=== PATIENT | male | born 1960 | race American Indian/Alaskan Native ===

== ENCOUNTER 2020-08-24 12:40 | Emergency (ER) | payer SELFPAY ==
[2020-08-24 14:13] VITALS: BP 171/105
--- NOTE | 2020-08-24 16:08 | Emergency Department Report ---
ED ENT HPI - General Chief complaint: Dental/Oral Stated complaint: TOOTHACHE Time Seen by Provider: 08/24/20 16:01 Source: patient Mode of arrival: Ambulatory Limitations: No Limitations - History of Present Illness Initial comments: 60-year-old male complaining of dental pain started on today he woke up with right lower jaw swelling. Patient states that he made an appointment with the dentist for this coming Wednesday. The pain is severe not relieved with any home remedies such as [id number] Tylenol and salt water gargles. He denie s any other complaints MD complaint: tooth pain -: days(s) Location: tooth # (29) Severity: moderate Severity scale (0 -10): 8 Improves with: none Worsens with: eating Context- Dental: poor dental care Associated Symptoms: gum swelling, toothache, other - Related Data Previous Rx's Medication Instructions Recorded Last Taken Type Cyclobenzaprine [Flexeril 10mg] 10 mg PO TID PRN #20 tablet 01/26/14 Unknown Rx HYDROcodone/APAP 5-325 [[place] 1 each PO Q6HR PRN #20 tablet 01/26/14 Unknown Rx 5/325] Naproxen [Naprosyn TAB] 500 mg PO BID #30 tablet 01/26/14 Unknown Rx Clindamycin [Clindamycin CAP] 300 mg PO Q8H 7 Days #21 cap 08/24/20 Unknown Rx Ibuprofen [Motrin] 800 mg PO Q8HR PRN #21 tablet 08/24/20 Unknown Rx Allergies Allergy/AdvReac Type Severity Reaction Status Date / Time No Known Allergies Allergy Verified 08/24/20 14:13 ED Dental HPI - General Chief complaint: Dental/Oral Stated complaint: TOOTHACHE Time Seen by Provider: 08/24/20 16:01 Source: patient Mode of arrival: Ambulatory Limitations: No Limitations - History of Present Illness MD complaint: tooth pain - Related Data Previous Rx's Medication Instructions Recorded Last Taken Type Cyclobenzaprine [Flexeril 10mg] 10 mg PO TID PRN #20 tablet 01/26/14 Unknown Rx HYDROcodone/APAP 5-325 [[place] 1 each PO Q6HR PRN #20 tablet 01/26/14 Unknown Rx 5/325] Naproxen [Naprosyn TAB] 500 mg PO BID #30 tablet 10/31/14 Unknown Rx Clindamycin [Clindamycin CAP] 300 mg PO Q8H 7 Days #21 cap 08/24/20 Unknown Rx Ibuprofen [Motrin] 800 mg PO Q8HR PRN #21 tablet 08/24/20 Unknown Rx Allergies Allergy/AdvReac Type Severity Reaction Status Date / Time No Known Allergies Allergy Verified 08/24/20 14:13 ED Review of Systems ROS: Stated complaint: TOOTHACHE Other details as noted in HPI Comment: All other systems reviewed and negative Constitutional: denies: chills, fever ENT: dental pain, other (Right lower jaw swelling) Respiratory: no symptoms reported Cardiovascular: denies: chest pain, palpitations, dyspnea on exertion Endocrine: no symptoms reported Gastrointestinal: denies: abdominal pain, nausea, vomiting, diarrhea, constipation Skin: denies: as per HPI Neurological: denies: headache, weakness Psychiatric: denies: anxiety, depression ED Past Medical Hx - Past Medical History Previous Medical History?: No - Surgical History Hx Appendectomy: Yes Additional Surgical History: back - Social History Smoking Status: Current Every Day Smoker Substance Use Type: Alcohol - Medications Home Medications: Home Medications Medication Instructions Recorded Confirmed Last Taken Type Cyclobenzaprine [Flexeril 10mg] 10 mg PO TID PRN #20 tablet 01/26/14 Unknown Rx HYDROcodone/APAP 5-325 [[place] 1 each PO Q6HR PRN #20 tablet 01/26/14 Unknown Rx 5/325] Naproxen [Naprosyn TAB] 500 mg PO BID #30 tablet 01/26/14 Unknown Rx Clindamycin [Clindamycin CAP] 300 mg PO Q8H 7 Days #21 cap 08/24/20 Unknown Rx Ibuprofen [Motrin] 800 mg PO Q8HR PRN #21 tablet 08/24/20 Unknown Rx ED Physical Exam - General Limitations: No Limitations General appearance: alert, in no apparent distress - Head Head exam: Present: atraumatic - Eye Eye exam: Present: normal appearance - ENT ENT exam: Present: TM's normal bilaterally, other (Swelling around tooth #29, draining pus, right lower jaw swelling) - Neck Neck exam: Present: normal inspection, full ROM - Respiratory Respiratory exam: Present: normal lung sounds bilaterally. Absent: respiratory distress - Cardiovascular Cardiovascular Exam: Present: regular rate, normal heart sounds - Extremities Exam Extremities exam: Present: normal inspection - Neurological Exam Neurological exam: Present: alert, oriented X3 - Psychiatric Psychiatric exam: Present: normal affect - Skin Skin exam: Present: warm, dry, intact ED Course Vital Signs 08/24/20 14:11 Temperature 98.9 F Pulse Rate 69 Respiratory 14 Rate Blood Pressure 171/105 [Left] O2 Sat by Pulse 98 Oximetry ED Medical Decision Making - Medical Decision Making 08/24/20 16:10 60-year-old male complaining of dental pain started 2 days ago he has been using home remedies with no relief. Today he woke up with right lower jaw swelling. Patient has made an appointment with the dentist for Wednesday. examination is positive for dental abscess already draining. Will prescribe antibiotic pain management medication patient has a dental appointment dental appointment on Wednesday08/24/20 16:17 Critical Care Time: No Critical care attestation.: If time is entered above; I have spent that time in minutes in the direct care of this critically ill patient, excluding procedure time. ED Disposition Clinical Impression: Dental abscess Disposition: TO HOME OR SELFCARE Is pt being admited?: No Does the pt Need Aspirin: No Condition: Stable Additional Instructions: Continue with salt water gargles at least 4 times daily take the medication as prescribed. Follow-up with the dentist on Wednesday as scheduled Prescriptions: Clindamycin [Clindamycin CAP] 300 mg PO Q8H 7 Days #21 cap Ibuprofen [Motrin] 800 mg PO Q8HR PRN #21 tablet PRN Reason: Pain , Severe (7-10) Referrals: [facility] [Outside] - 3-5 Days Time of Disposition: 16:21
== END 2020-08-24 16:54 | disposition home or self-care (01) ==
LOC: ED 12:40
DX: K04.7 Periapical abscess without sinus (principal); F17.200 Nicotine dependence, unspecified, uncomplicated; Z72.89 Other problems related to lifestyle; Z79.899 Other long term (current) drug therapy
CPT/HCPCS: 99281

== ENCOUNTER 2021-04-20 16:20 | Inpatient (IN) | payer SELFPAY ==
[2021-04-20] MEDS ORDERED: dilTIAZem 25 MG/5 ML INJ IV ONE (16:35)
--- NOTE | 2021-04-20 16:35 | Emergency Department Report ---
ED Neuro Deficit HPI - General Chief Complaint: Neuro Symptoms/Deficit Stated Complaint: neuro symptoms Time Seen by Provider: 04/20/21 16:28 Source: patient, EMS (Verbal report received from emergency medical services.) Mode of arrival: Stretcher Limitations: Physical Limitation - History of Present Illness Initial Comments: The patient was evaluated in the emergency department for symptoms described in the history of present illness. He/she was evaluated in the context of the global COVID-19 pandemic, which necessitated consideration that the patient might be at risk for infection with the virus that causes COVID-19. Institutional protocols and algorithms that pertain to the evaluation of patients at risk for COVID-19 are in a state of rapid change based on information released by regulatory bodies including the CDC and federal and state organizations. These policies and algorithms were followed during the patient's care in the emergency department. Please note that these policies, procedures and recommendations changed on a rapid basis. The patient is a 61-year-old gentleman. He is not known to myself previously. History obtained mostly from EMS, along with some history from patient. 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 He is brought to the hospital by emergency medical services with an EMS articulated complaint of difficulty walking for the past 2 days, and slurred speech/discoordination since yesterday. The patient cannot clarify his exact last known well time. He believes that he has taken aspirin recently. He does not believe he is taking systemic anticoagulation but he is not sure. He denies physical pain. He reports he has received his COVID vaccination. He endorses a mild cough. He denies hematemesis and bright red blood per rectum, as well as urinary symptoms. His symptoms are constant. They do not radiate anywhere. They do not have exacerbating or relieving factors -: days(s) Location: speech, dysarthria, left arm, left leg, ataxia Presenting Symptoms: Present: Weak/Paralyzed One Side, Unable to Speak Clearly Place: home Improves With: none Worsens With: none Context: gradual onset - Related Data Home Medications: Previous Rx's Medication Instructions Recorded Last Taken Type Cyclobenzaprine [Flexeril 10mg] 10 mg PO TID PRN #20 tablet 01/26/14 Unknown Rx HYDROcodone/APAP 5-325 [[place] 1 each PO Q6HR PRN #20 tablet 01/26/14 Unknown Rx 5/325] Naproxen [Naprosyn TAB] 500 mg PO BID #30 tablet 01/26/14 Unknown Rx Clindamycin [Clindamycin CAP] 300 mg PO Q8H 7 Days #21 cap 08/24/20 Unknown Rx Ibuprofen [Motrin] 800 mg PO Q8HR PRN #21 tablet 08/24/20 Unknown Rx Allergies/Adverse Reactions: Allergies Allergy/AdvReac Type Severity Reaction Status Date / Time No Known Allergies Allergy Verified 08/24/20 14:13 ED Review of Systems ROS: Stated complaint: STEMI Other details as noted in HPI Constitutional: denies: fever Eyes: denies: eye discharge Respiratory: cough Cardiovascular: denies: chest pain Gastrointestinal: denies: abdominal pain, hematemesis, melena, hematochezia Genitourinary: denies: dysuria Musculoskeletal: denies: back pain Neurological: weakness. denies: headache Hematological/Lymphatic: denies: easy bleeding ED Past Medical Hx - Past Medical History Hx CVA: Yes - Surgical History Hx Appendectomy: Yes Additional Surgical History: back - Social History Smoking Status: Current Every Day Smoker Substance Use Type: Alcohol - Medications Home Medications: Home Medications Medication Instructions Recorded Confirmed Last Taken Type Cyclobenzaprine [Flexeril 10mg] 10 mg PO TID PRN #20 tablet 01/26/14 Unknown Rx HYDROcodone/APAP 5-325 [[place] 1 each PO Q6HR PRN #20 tablet 01/26/14 Unknown Rx 5/325] Naproxen [Naprosyn TAB] 500 mg PO BID #30 tablet 01/26/14 Unknown Rx Clindamycin [Clindamycin CAP] 300 mg PO Q8H 7 Days #21 cap 08/24/20 Unknown Rx Ibuprofen [Motrin] 800 mg PO Q8HR PRN #21 tablet 08/24/20 Unknown Rx ED Neuro Physical Exam - General Limitations: Physical Limitation General appearance: anxious Suspected Stroke: Yes - Head Head exam: Present: atraumatic, normocephalic - Eye Eye exam: Present: normal appearance, EOMI. Absent: nystagmus - ENT ENT exam: Present: normal exam, normal orophraynx, mucous membranes moist, n ormal external ear exam - Neck Neck exam: Present: normal inspection, full ROM. Absent: tenderness, meningismus - Respiratory Respiratory exam: Present: normal lung sounds bilaterally. Absent: respiratory distress, wheezes, rales, rhonchi, stridor, decreased breath sounds - Cardiovascular Cardiovascular Exam: Present: tachycardia, irregular rhythm, normal heart sounds. Absent: systolic murmur, diastolic murmur, rubs, gallop - GI/Abdominal GI/Abdominal exam: Present: soft. Absent: distended, tenderness, guarding, rebound, rigid, pulsatile mass - Rectal Rectal exam: Present: deferred - Extremities Exam Extremities exam: Present: normal inspection, full ROM (Right arm and right leg), other (2+ pulses noted in the bilateral upper and lower extremities. Th ere is no palpable cord. negative Homans sign. Muscular compartments are soft. The pelvis is stable.). Absent: pedal edema, calf tenderness - Back Exam Back exam: Present: normal inspection. Absent: tenderness, CVA tenderness (R), CVA tenderness (L), paraspinal tenderness, vertebral tenderness - Neurological Exam Neurological exam: Present: alert, motor sensory deficit (There is left arm and left leg weakness. There is slurred speech.), other (There is no facial droop. The tongue is midline. EOMI. Patient has temporal visual field cuts bilateral superior and inferior quadrants) - NIHSS Assessment Interval: Baseline 1a. Level of Consciousness: alert/keenly responsive 1b. LOC Questions: answers both correctly 1c. LOC Commands: performs tasks correctly 2. Best Gaze: normal 3. Visual: partial hemianopia 4. Facial Palsy: normal symmetrical movement 5b. Motor Arm Right: no drift 5a. Motor Arm Left: drift 6a. Motor Leg Left: drift 6b. Motor Leg Right: no drift 7. Limb Ataxia: present 1 limb 8. Sensory: mild/moderate sensory loss 9. Best Language: no aphasia 10. Dysarthria: mild/moderate dysarthria 11. Extinction/Inattention: visual/tactile inattention Total Score: 7 Stroke Severity: Moderate Stroke - Psychiatric Psychiatric exam: Present: normal affect, normal mood - Skin Skin exam: Present: warm, dry, intact, normal color. Absent: rash ED Course Vital Signs 04/20/21 04/20/21 04/20/21 16:33 16:46 17:16 Temperature 98.0 F Pulse Rate 135 H 85 Respiratory 16 10 L 13 Rate Blood Pressure 163/90 Blood Pressure 195/112 [Right] O2 Sat by Pulse 98 100 Oximetry 04/20/21 04/20/21 04/20/21 17:30 17:46 17:59 Temperature Pulse Rate 90 98 H Respiratory 12 14 Rate Blood Pressure 163/90 163/90 Blood Pressure [Right] O2 Sat by Pulse 96 98 97 Oximetry 04/20/21 04/20/21 18:00 18:16 Temperature Pulse Rate 99 H Respiratory 13 Rate Blood Pressure 163/90 162/111 Blood Pressure [Right] O2 Sat by Pulse 98 97 Oximetry - Reevaluation(s) Reevaluation #1: 04/20/21 17:21 Differential diagnosis, including but not limited to: Subacute stroke, A. fib with RVR, pneumonia, urinary tract infection, electrolyte derangement, thyroid derangement Assessment and plan: 61-year-old gentleman, presenting with hypertension, A. fib with RVR, and strokelike symptoms. He is presenting more than 24 hours after his last known well time. Therefore, tPA is contraindicated. Therefore, emergent CT angiogram head and neck not indicated. Contacted neurology on-call, Dr. Prashanth Kang. Discussed the patient's history, physical, CT scan findings, EKG findings, vital signs, and EKG interpretation. Admission is recommended for stroke work-up and supportive care. Dr. Kang specifically advises against systemic anticoagulation, until inpatient MRIs can be obtained. He does advise and aspirin to be acceptable, and also advises that blood pressure should be less than 220/105 mmHg. Awaiting formal interpretation of CT scan of the brain, as well as acquisition of laboratory studies. We will also initiate rate control with diltiazem, and admit the patient to the medical service. I discussed this with the patient. He is agreeable to this plan of care 04/20/21 18:31 Heart rate improved. Laboratory studies reviewed and appreciated. Tachycardia resolved. Aspirin administered. X-ray appreciated. Admitted to the medical service under the care of Dr. Hu - Lab Data Result diagrams: 04/20/21 17:44 04/20/21 17:44 Lab Results 04/20/21 04/20/21 04/20/21 Range/Units 17:44 17:44 17:44 WBC 9.0 (4.5-11.0) K/mm3 RBC 5.72 H (3.65-5.03) M/mm3 Hgb 16.0 H (11.8-15.2) gm/dl Hct 49.8 H (35.5-45.6) % MCV 87 (84-94) fl MCH 28 (28-32) pg MCHC 32 (32-34) % RDW 13.9 (13.2-15.2) % Plt Count 322 (140-440) K/mm3 Lymph % (Auto) 13.6 (13.4-35.0) % [place] % (Auto) 6.9 (0.0-7.3) % Eos % (Auto) 0.6 (0.0-4.3) % Baso % (Auto) 0.4 (0.0-1.8) % Lymph # (Auto) 1.2 (1.2-5.4) K/mm3 [place] # (Auto) 0.6 (0.0-0.8) K/mm3 Eos # (Auto) 0.1 (0.0-0.4) K/mm3 Baso # (Auto) 0.0 (0.0-0.1) K/mm3 Seg Neutrophils % 78.5 H (40.0-70.0) % Seg Neutrophils # 7.1 (1.8-7.7) K/mm3 Sodium 135 L (137-145) mmol/L Potassium 3.9 (3.6-5.0) mmol/L Chloride 100.0 (98-107) mmol/L Carbon Dioxide 24 (22-30) mmol/L Anion Gap 15 mmol/L BUN 5 L (9-20) mg/dL Creatinine 0.9 (0.8-1.3) mg/dL Estimated GFR > 60 ml/min BUN/Creatinine Ratio 6 % Glucose 169 H (75-100) mg/dL Calcium 9.5 (8.4-10.2) mg/dL Magnesium (1.7-2.3) mg/dL Total Bilirubin 0.40 (0.1-1.2) mg/dL AST 19 (5-40) units/L ALT 35 (7-56) units/L Alkaline Phosphatase 73 (35-129) units/L Total Creatine Kinase 79 (55-170) units/L CK-MB (CK-2) 2.1 (0.0-4.0) ng/mL CK-MB (CK-2) Rel Index 2.6 (0-4) Troponin T 0.011 (0.00-0.029) ng/mL Total Protein 7.0 (6.3-8.2) g/dL Albumin 4.1 (3.9-5) g/dL Albumin/Globulin Ratio 1.4 % Plasma/Serum Alcohol < 0.01 (0-0.07) % 04/20/21 Range/Units 17:44 WBC (4.5-11.0) K/mm3 RBC (3.65-5.03) M/mm3 Hgb (11.8-15.2) gm/dl Hct (35.5-45.6) % MCV (84-94) fl MCH (28-32) pg MCHC (32-34) % RDW (13.2-15.2) % Plt Count (140-440) K/mm3 Lymph % (Auto) (13.4-35.0) % [place] % (Auto) (0.0-7.3) % Eos % (Auto) (0.0-4.3) % Baso % (Auto) (0.0-1.8) % Lymph # (Auto) (1.2-5.4) K/mm3 [place] # (Auto) (0.0-0.8) K/mm3 Eos # (Auto) (0.0-0.4) K/mm3 Baso # (Auto) (0.0-0.1) K/mm3 Seg Neutrophils % (40.0-70.0) % Seg Neutrophils # (1.8-7.7) K/mm3 Sodium (137-145) mmol/L Potassium (3.6-5.0) mmol/L Chloride (98-107) mmol/L Carbon Dioxide (22-30) mmol/L Anion Gap mmol/L BUN (9-20) mg/dL Creatinine (0.8-1.3) mg/dL Estimated GFR ml/min BUN/Creatinine Ratio % Glucose (75-100) mg/dL Calcium (8.4-10.2) mg/dL Magnesium 1.90 (1.7-2.3) mg/dL Total Bilirubin (0.1-1.2) mg/dL AST (5-40) units/L ALT (7-56) units/L Alkaline Phosphatase (35-129) units/L Total Creatine Kinase 81 (55-170) units/L CK-MB (CK-2) (0.0-4.0) ng/mL CK-MB (CK-2) Rel Index (0-4) Troponin T (0.00-0.029) ng/mL Total Protein (6.3-8.2) g/dL Albumin (3.9-5) g/dL Albumin/Globulin Ratio % Plasma/Serum Alcohol (0-0.07) % Vital Signs 04/20/21 16:33 Temperature 98.0 F Pulse Rate 135 H Respiratory 16 Rate Blood Pressure 195/112 [Right] O2 Sat by Pulse 98 Oximetry Vital Signs 04/20/21 04/20/21 04/20/21 16:33 16:46 17:16 Temperature 98.0 F Pulse Rate 135 H 85 Respiratory 16 10 L 13 Rate Blood Pressure 163/90 Blood Pressure 195/112 [Right] O2 Sat by Pulse 98 100 Oximetry 04/20/21 04/20/21 04/20/21 17:30 17:46 17:59 Temperature Pulse Rate 90 98 H Respiratory 12 14 Rate Blood Pressure 163/90 163/90 Blood Pressure [Right] O2 Sat by Pulse 96 98 97 Oximetry 04/20/21 04/20/21 18:00 18:16 Temperature Pulse Rate 99 H Respiratory 13 Rate Blood Pressure 163/90 162/111 Blood Pressure [Right] O2 Sat by Pulse 98 97 Oximetry - EKG Data -: EKG Interpreted by Mi Rate: tachycardia When compared to previous EKG there are: previous EKG unavailable 04/20/21 17:22 The EKG is interpreted at 16: 21 A. fib, rate 120 bpm. Normal axis, normal P wave axis, QTC 504 ms, left ventricular hypertrophy. Patient denies chest pain. This is an abnormal EKG, this is not a STEMI, borderline left bundle branch block/intraventricular conduction delay - Radiology Data Radiology results: pending, report reviewed, image reviewed CT head/brain wo con INDICATION / CLINICAL INFORMATION: 61 years Male; Slurred speech, weakness, ataxia. TECHNIQUE: Routine CT head without contrast. All CT scans at this location are performed using CT dose reduction for ALARA by means of automated exposure control. COMPARISON: None available. FINDINGS: There is extensive cerebral white matter disease most consistent with advanced microvascular angiopathy. The findings include the ganglia capsular regions with old infarct posteriorly on the right at. There also changes at within the superior left cerebellum. Correlation would be needed regarding underlying acute process given the history and extent of findings. Mild findings are also noted within the luba. BRAIN / INTRACRANIAL CONTENTS: There is mild cerebral white matter disease with corresponding mild prominence of the ventricular system. The re is no clear CT evidence of acute intracranial hemorrhage or significant mass effect. ORBITS: No significant abnormality of visualized orbits. SINUSES / MASTOIDS: No significant abnormality in the visualized paranasal sinuses or mastoid air cells. CRANIOCERVICAL JUNCTION: No significant abnormality. ADDITIONAL FINDINGS: None. IMPRESSION: 1. There is extensive microvascular angiopathy as detailed above without clear CT evidence of acute intracranial hemorrhage. Signer Name: Ismael Longo MD Signed: 04/20/2021 4:30 PM Workstation Name: [id number] CHEST 1 VIEW 04/20/2021 4:53 PM INDICATION / CLINICAL INFORMATION: Stroke symptoms with cough. COMPARISON: None available. FINDINGS: SUPPORT DEVICES: None. HEART / MEDIASTINUM: No significant abnormality. LUNGS / PLEURA: A nonspecific opacity is seen along the left mid lung the level of the left hilum. The lungs are otherwise clear. No significant pleural effusion. No pneumothorax. ADDITIONAL FINDINGS: No significant additional findings. IMPRESSION: Nonspecific left midlung opacity. Continued radiographic follow-up to resolution is recommended. Signer Name: Thiago Powell MD Signed: 04/20/2021 4:10 PM Workstation Name: [id number] - Core Measures Measure Exclusions: not indicated - Thrombolytic Inclusion/Exclusion Thrombolytic Exclusion Criteria: Onset of Symptoms Unknown, Symptom Onset > 3 Hours Critical Care Time: Yes Critical care time in (mins) excluding proc time.: 35 Critical care attestation.: If time is entered above; I have spent that time in minutes in the direct care of this critically ill patient, excluding procedure time. ED Disposition Clinical Impression: Stroke, Atrial fibrillation with RVR, Elevated blood pressure reading Disposition: ADMITTED INPATIENT Is pt being admited?: Yes Does the pt Need Aspirin: No Condition: Fair Referrals: PRIMARY CARE, [Primary Care Provider] - 3-5 Days
--- NOTE | 2021-04-20 17:14 | XRay Report ---
CHEST 1 VIEW 04/20/2021 4:53 PM INDICATION / CLINICAL INFORMATION: Stroke symptoms with cough. COMPARISON: None available. FINDINGS: SUPPORT DEVICES: None. HEART / MEDIASTINUM: No significant abnormality. LUNGS / PLEURA: A nonspecific opacity is seen along the left mid lung the level of the left hilum. Th e lungs are otherwise clear. No significant pleural effusion. No pneumothorax. ADDITIONAL FINDINGS: No significant additional findings. IMPRESSION: Nonspecific left midlung opacity. Continued radiographic follow-up to resolution is recommended. Signer Name: Thiago Powell MD Signed: 04/20/2021 5:10 PM Workstation Name: [id number]
--- NOTE | 2021-04-20 17:34 | Cat Scan Report ---
CT head/brain wo con INDICATION / CLINICAL INFORMATION: 61 years Male; Slurred speech, weakness, ataxia. TECHNIQUE: Routine CT head without contrast. All CT scans at this location are performed using CT dos e reduction for ALARA by means of automated exposure control. COMPARISON: None available. FINDINGS: There is extensive cerebral white matter disease most consistent with advanced microvascular angiopat hy. The findings include the ganglia capsular regions with old infarct posteriorly on the right at. T here also changes at within the superior left cerebellum. Correlation would be needed regarding under lying acute process given the history and extent of findings. Mild findings are also noted within the luba. BRAIN / INTRACRANIAL CONTENTS: There is mild cerebral white matter disease with corresponding mild pr ominence of the ventricular system. There is no clear CT evidence of acute intracranial hemorrhage or significant mass effect. ORBITS: No significant abnormality of visualized orbits. SINUSES / MASTOIDS: No significant abnormality in the visualized paranasal sinuses or mastoid air miguel ls. CRANIOCERVICAL JUNCTION: No significant abnormality. ADDITIONAL FINDINGS: None. IMPRESSION: 1. There is extensive microvascular angiopathy as detailed above without clear CT evidence of acute i ntracranial hemorrhage. Signer Name: Ismael Longo MD Signed: 04/20/2021 5:30 PM Workstation Name: [id number]
[2021-04-20] MEDS ORDERED: DOXYCYCLINE 100 MG CAP PO ONE (17:56)
[2021-04-20] MEDS ORDERED: ASPIRIN 81 MG TAB CHEW PO ONE (17:56)
[2021-04-20] MEDS ORDERED: dilTIAZem 30 MG TAB PO ONE (17:58)
[2021-04-20 18:00] LABS: Basophils % (Auto) 0.4 % (0.0-1.8); Eosinophils # (Auto) 0.1 K/mm3 (0.0-0.4); Eosinophils % (Auto) 0.6 % (0.0-4.3); Hematocrit 49.8 % (35.5-45.6); Lymphocytes # (Auto) 1.2 K/mm3 (1.2-5.4); Lymphocytes % (Auto) 13.6 % (13.4-35.0); Mean Corpuscular HGB Conc 32 % (32-34); Mean Corpuscular Volume 87 fl (84-94); Monocytes # (Auto) 0.6 K/mm3 (0.0-0.8); Monocytes % (Auto) 6.9 % (0.0-7.3); Platelet Count 322 K/mm3 (140-440); Red Blood Count 5.72 M/mm3 (3.65-5.03); Red Cell Distribution Width 13.9 % (13.2-15.2)
--- NOTE | 2021-04-20 18:08 | Consultation ---
History of Present Illness History of present illness: [facility] Consult Note # Demographics Consult Type: General Neurology Patient Location: Emergency Room First Name: Carrington Last Name: Cole Date of : 1960 Age: 61 Gender: Male Facility: [facility] Time of Initial Page ( Time): 04/20/2021, 17:15 Time of Return Call ( Time): 04/20/2021, 17:15 Phone Only Consult: 61M presents with 2 days of unsteady gait. Also developed slurred speech sometime yesterday. LKWT sometime on Wednesday. In atrial fibrillation. NIHSS 7. Recommend admission for stroke work up. # Plan Thrombolytic/Intervention: NOT IV Thrombolysis or IA Intervention candidate Thrombolytic Exclusion: > 4.5 hours Intraarterial Exclusion: other >24 hours Target Blood Pressure: SBP < 220 DBP < 105 Labs: hemoglobin A1c lipid panel Imaging: (urgency: routine): MR Angiogram Head without contrast MR Angiogram Neck with contrast MRI Brain without contrast Diagnostic Test: echo with bubble study Therapy/Evaluation: PT/OT evaluation speech/swallow consultation Medication: ASA 325x1 then 81 daily Atorvastatin 80x1 then tailor daily dose to LDL <70 goal Based on size/presence of stroke on MRI, will need to be started on anticoagulation with apixaban 5mg BID. Would likely wait 5-7 days given an NIHSS of 7, however could start sooner if stroke is very small. DVT Prophylaxis: SCD chemical DVT prophylaxis Other: permissive hypertension telemetry monitoring I have discussed my recommendations with the referring provider # [employer] Telemedicine: phone only Electronically signed at 04/20/2021 18:07 ( Time) by Prashanth Kang MD Medications and Allergies Allergies Allergy/AdvReac Type Severity Reaction Status Date / Time No Known Allergies Allergy Verified 08/24/20 14:13 Home Medications Medication Instructions Recorded Confirmed Last Taken Type Cyclobenzaprine [Flexeril 10mg] 10 mg PO TID PRN #20 tablet 01/26/14 Unknown Rx HYDROcodone/APAP 5-325 [[place] 1 each PO Q6HR PRN #20 tablet 01/26/14 Unknown Rx 5/325] Naproxen [Naprosyn TAB] 500 mg PO BID #30 tablet 01/26/14 Unknown Rx Clindamycin [Clindamycin CAP] 300 mg PO Q8H 7 Days #21 cap 08/24/20 Unknown Rx Ibuprofen [Motrin] 800 mg PO Q8HR PRN #21 tablet 08/24/20 Unknown Rx Physical Examination - Vital Signs Vital Signs: Vital Signs Temp Pulse Resp BP Pulse Ox 98.0 F 135 H 16 195/112 98 04/20/21 16:33 04/20/21 16:33 04/20/21 16:33 04/20/21 16:33 04/20/21 16:33 Results - Laboratory Findings CBC and BMP: 04/20/21 17:44 Abnormal Lab Findings: Abnormal Labs 04/20/21 17:44 RBC 5.72 H Hgb 16.0 H Hct 49.8 H Seg Neutrophils % 78.5 H
[2021-04-20 18:28] LABS: Alanine Aminotransferase 35 units/L (7-56); Albumin 4.1 g/dL (3.9-5); BUN/Creatinine Ratio 6; Blood Urea Nitrogen 5 mg/dL (9-20); Calcium 9.5 mg/dL (8.4-10.2); Hemolysis Index 4
[2021-04-20 18:29] LABS: Creatine Kinase MB 2.1 ng/mL (0.0-4.0)
[2021-04-20 18:32] LABS: INR 0.97 (0.87-1.13)
[2021-04-20 18:33] LABS: Partial Thromboplastin Time 26.1 Sec. (24.2-36.6); Thrombin Time 16.2 Sec. (15.1-19.6)
[2021-04-20 18:36] LABS: Bilirubin,Urine NEG (Negative); Blood,Urine SM (Negative); Color,Urine Yellow (Yellow); Hyaline Casts,Urine 5 /LPF; Mucus,Urine FEW /HPF; Urobilinogen,Urine < 2.0 mg/dL (<2.0)
--- NOTE | 2021-04-20 18:40 | History and Physical Report ---
History of Present Illness Chief complaint: My left side feels weak and it is hard to talk History of present illness: 61 YO Male with CVA with LHP, Nicotine Dependence, ETOH Dependence presents to ED for evaluation. Patient reports "my left side is weak and it is hard to talk". Patient states that he experienced sudden onset left arm and leg weakness and slurred speech 2 days ago with persistent symptoms over the same timeframe. Patient states that he waited for symptoms to improve and notified EMS after no improvement over the past 2 days. EMS was notified today and upon arrival the patient was found to be in distress with a focal neurologic deficit. A code stroke was called and the patient was subsequently transported to [facility] for further care and evaluation of the aforementioned symptoms. The patient was seen and evaluated in the emergency department. All lab and imaging studies reviewed. The patient was found to have a focal neurologic deficit. A code stroke was called and teleneurology consulted. The patient was found to have symptoms consistent with CVA as well as new onset atrial fibrillation with rapid ventricular response. The patient was treated with medical cardioversion with normalization of heart rate. The patient was placed in observation status and admitted to medical floor and initiated on CVA protocol. Patient denies fever, chills, chest pain, palpitations, productive cough, skin rash, recent contact, known exposure to COVID-19. Patient is vaccinated against COVID-19. No prior admission for review. All medication listed at time of admission has been reconciled. Advanced care planning conducted in ED. CHADS 2Vasc Score: 2 Past History Past Medical History: other (See HPI) Past Surgical History: appendectomy Social history: smoking, alcohol abuse Family history: hypertension Medications and Allergies Allergies Allergy/AdvReac Type Severity Reaction Status Date / Time No Known Allergies Allergy Verified 08/24/20 14:13 Home Medications Medication Instructions Recorded Confirmed Last Taken Type Cyclobenzaprine [Flexeril 10mg] 10 mg PO TID PRN #20 tablet 01/26/14 Unknown Rx HYDROcodone/APAP 5-325 [[place] 1 each PO Q6HR PRN #20 tablet 01/26/14 Unknown Rx 5/325] Naproxen [Naprosyn TAB] 500 mg PO BID #30 tablet 01/26/14 Unknown Rx Clindamycin [Clindamycin CAP] 300 mg PO Q8H 7 Days #21 cap 08/24/20 Unknown Rx Ibuprofen [Motrin] 800 mg PO Q8HR PRN #21 tablet 08/24/20 Unknown Rx Exam - Constitutional Vitals: Temp Pulse Resp BP Pulse Ox 98.0 F 99 H 13 162/111 97 04/20/21 16:33 04/20/21 18:16 04/20/21 18:16 04/20/21 18:16 04/20/21 18:16 General appearance: Present: mild distress - EENT Eyes: Present: PERRL ENT: hearing intact, clear oral mucosa - Neck Neck: Present: supple, normal ROM - Respiratory Respiratory effort: normal Respiratory: bilateral: CTA - Cardiovascular Rhythm: irregularly irregular Heart Sounds: Present: S1 & S2. Absent: rub, click - Extremities Extremities: pulses symmetrical, No edema Peripheral Pulses: within normal limits - Abdominal General gastrointestinal: Present: soft, non-tender, non-distended, normal bowel sounds Male genitourinary: Present: normal - Integumentary Integumentary: Present: clear, warm, dry - Musculoskeletal Musculoskeletal: left sided weakness - Psychiatric Psychiatric: appropriate mood/affect, intact judgment & insight - Neurologic Neurologic: CNII-XII intact, focal deficits, moves all extremities, no gait normal HEART Score - HEART Score Troponin: Troponin T 0.011 ng/mL (0.00-0.029) 04/20/21 17:44 Results - Labs CBC & Chem 7: 04/20/21 17:44 04/20/21 17:44 Labs: Abnormal lab results 04/20/21 04/20/21 Range/Units 17:44 17:44 RBC 5.72 H (3.65-5.03) M/mm3 Hgb 16.0 H (11.8-15.2) gm/dl Hct 49.8 H (35.5-45.6) % Seg Neutrophils % 78.5 H (40.0-70.0) % Sodium 135 L (137-145) mmol/L BUN 5 L (9-20) mg/dL Glucose 169 H (75-100) mg/dL Assessment and Plan - Patient Problems (1) CVA (cerebral vascular accident) Current Visit: Yes Status: Acute Plan to address problem: Stroke protocol: CT head, antiplatelet Therapy, lipid panel, seizure precautions, fall precautions, neuro check, physical therapy consulted, Occupational Therapy consulted, speech therapy consulted, teleneurology consulted, carotid Doppler, echocardiogram ordered and pending at time of admission. (2) Nicotine dependence Current Visit: Yes Status: Acute Qualifiers: Nicotine product type: cigarettes Substance use status: in withdrawal Qualified Code(s): F17.213 - Nicotine dependence, cigarettes, with withdrawal Plan to address problem: Smoking cessation counseling, supportive care, behavior change counseling, +15 minutes. (3) Alcohol dependence Current Visit: Yes Status: Acute Plan to address problem: CIWA protocol, thiamine, folic acid, multivitamin daily (4) Atrial fibrillation with RVR Current Visit: Yes Status: Acute Plan to address problem: Rate control with Cardizem, cardiology team consulted, echocardiogram ordered and pending at time of admission, thyroid panel, magnesium level. CHADS 2Vasc Score: 2: Pt initiated on Eliquis protocol. (5) DVT prophylaxis Current Visit: Yes Status: Acute Plan to address problem: SCDs bilateral lower extremities while in bed (6) Advance care planning Current Visit: Yes Status: Acute Plan to address problem: Disease education conducted, care plan discussed, diagnosis discussed, prognosis discussed, patient is full code. Patient acknowledges understanding and agreement with care plan, +30 minutes.
[2021-04-20] MEDS ORDERED: MAGNESIUM HYDROXIDE (MOM) ORAL LIQD UDC PO PRN (18:41)
[2021-04-20] MEDS ORDERED: PROMETHAZINE 25 MG RECT SUPP PR PRN (18:41)
[2021-04-20] MEDS ORDERED: ONDANSETRON 4 MG/2 ML INJ IV PRN (18:41)
[2021-04-20] MEDS ORDERED: ALBUTEROL 2.5 MG/3 ML NEBU IH PRN (18:41)
[2021-04-20] MEDS ORDERED: METOCLOPRAMIDE 10 MG TAB PO PRN (18:41)
[2021-04-20] MEDS ORDERED: THIAMINE 100 MG TAB PO ONE (18:59)
[2021-04-20] MEDS ORDERED: CYCLOBENZAPRINE 10 MG TAB PO PRN (19:00)
[2021-04-20] MEDS ORDERED: MULTIVITAMINS ,THERAPEUTIC TAB PO ONE (20:00)
[2021-04-20 20:46] LABS: Free T4 (Free Thyroxine) 1.16 ng/dL (0.76-1.46)
[2021-04-20 21:00] LABS: Hematocrit 52.6 % (35.5-45.6); Hemoglobin 16.6 gm/dl (11.8-15.2); Mean Corpuscular HGB Conc 32 % (32-34); Mean Corpuscular Volume 87 fl (84-94); Platelet Count 330 K/mm3 (140-440); Red Blood Count 6.04 M/mm3 (3.65-5.03); Red Cell Distribution Width 14.1 % (13.2-15.2)
[2021-04-20 21:11] LABS: INR 0.96 (0.87-1.13)
[2021-04-20] MEDS ORDERED: APIXABAN 5 MG TAB PO SCH (22:00)
--- NOTE | 2021-04-21 09:17 | Progress Note ---
Assessment and Plan Assessment and plan: Acute CVA A. fib with RVR Nicotine dependence Alcohol dependence 04/21/2021. Continue CVA protocol. Continue aspirin and Lipitor for secondary prevention. Neurology consultation. Rate controlled with Cardizem. Follow-up echocardiogram and await cardiology consultation. Continue CIWA protocol. PT/OT/ST History Interval history: No new issues overnight. Hospitalist Physical - Constitutional Vitals: Temp Pulse Resp BP Pulse Ox 98.0 F 64 15 145/80 99 04/20/21 16:33 04/21/21 08:01 04/21/21 08:01 04/21/21 08:01 04/21/21 08:01 General appearance: Present: mild distress - EENT Eyes: Present: PERRL, EOM intact ENT: hearing intact, clear oral mucosa, dentition normal - Neck Neck: Present: supple, normal ROM - Respiratory Respiratory effort: normal Respiratory: bilateral: CTA - Cardiovascular Rhythm: regular Heart Sounds: Present: S1 & S2. Absent: gallop, rub - Extremities Extremities: no ischemia, No edema, Full ROM - Abdominal General gastrointestinal: soft, non-tender, non-distended, normal bowel sounds - Integumentary Integumentary: Present: clear, warm, dry - Neurologic Neurologic: CNII-XII intact, moves all extremities HEART Score - HEART Score Troponin: Troponin T 0.011 ng/mL (0.00-0.029) 04/20/21 17:44 Results - Labs CBC & Chem 7: 04/20/21 20:41 04/20/21 20:41 Labs: Laboratory Last Values WBC 12.4 K/mm3 (4.5-11.0) H 04/20/21 20:41 RBC 6.04 M/mm3 (3.65-5.03) H 04/20/21 20:41 Hgb 16.6 gm/dl (11.8-15.2) H 04/20/21 20:41 Hct 52.6 % (35.5-45.6) H 04/20/21 20:41 MCV 87 fl (84-94) 04/20/21 20:41 MCH 27 pg (28-32) L 04/20/21 20:41 MCHC 32 % (32-34) 04/20/21 20:41 RDW 14.1 % (13.2-15.2) 04/20/21 20:41 Plt Count 330 K/mm3 (140-440) 04/20/21 20:41 Lymph % (Auto) 13.6 % (13.4-35.0) 04/20/21 17:44 [place] % (Auto) 6.9 % (0.0-7.3) 04/20/21 17:44 Eos % (Auto) 0.6 % (0.0-4.3) 04/20/21 17:44 Baso % (Auto) 0.4 % (0.0-1.8) 04/20/21 17:44 Lymph # (Auto) 1.2 K/mm3 (1.2-5.4) 04/20/21 17:44 [place] # (Auto) 0.6 K/mm3 (0.0-0.8) 04/20/21 17:44 Eos # (Auto) 0.1 K/mm3 (0.0-0.4) 04/20/21 17:44 Baso # (Auto) 0.0 K/mm3 (0.0-0.1) 04/20/21 17:44 Seg Neutrophils % 78.5 % (40.0-70.0) H 04/20/21 17:44 Seg Neutrophils # 7.1 K/mm3 (1.8-7.7) 04/20/21 17:44 PT 13.9 Sec. (12.2-14.9) 04/20/21 20:41 INR 0.96 (0.87-1.13) 04/20/21 20:41 APTT 28.0 Sec. (24.2-36.6) 04/20/21 20:41 Thrombin Time 16.2 Sec. (15.1-19.6) 04/20/21 17:44 Sodium 135 mmol/L (137-145) L 04/20/21 17:44 Potassium 3.9 mmol/L (3.6-5.0) 04/20/21 17:44 Chloride 100.0 mmol/L (98-107) 04/20/21 17:44 Carbon Dioxide 24 mmol/L (22-30) 04/20/21 17:44 Anion Gap 15 mmol/L 04/20/21 17:44 BUN 5 mg/dL (9-20) L 04/20/21 17:44 Creatinine 0.7 mg/dL (0.8-1.3) L 04/20/21 20:41 Estimated GFR > 60 ml/min 04/20/21 20:41 BUN/Creatinine Ratio 6 % 04/20/21 17:44 Glucose 169 mg/dL (75-100) H 04/20/21 17:44 Calcium 9.5 mg/dL (8.4-10.2) 04/20/21 17:44 Magnesium 1.90 mg/dL (1.7-2.3) 04/20/21 17:44 Total Bilirubin 0.40 mg/dL (0.1-1.2) 04/20/21 17:44 AST 19 units/L (5-40) 04/20/21 17:44 ALT 35 units/L (7-56) 04/20/21 17:44 Alkaline Phosphatase 73 units/L (35-129) 04/20/21 17:44 Total Creatine Kinase 79 units/L (55-170) 04/20/21 17:44 Total Creatine Kinase 81 units/L (55-170) 04/20/21 17:44 CK-MB (CK-2) 2.1 ng/mL (0.0-4.0) 04/20/21 17:44 CK-MB (CK-2) Rel Index 2.6 (0-4) 04/20/21 17:44 Troponin T 0.011 ng/mL (0.00-0.029) 04/20/21 17:44 Total Protein 7.0 g/dL (6.3-8.2) 04/20/21 17:44 Albumin 4.1 g/dL (3.9-5) 04/20/21 17:44 Albumin/Globulin Ratio 1.4 % 04/20/21 17:44 TSH 1.040 mlU/mL (0.270-4.200) 04/20/21 19:42 Free T4 1.16 ng/dL (0.76-1.46) 04/20/21 19:42 Urine Color Yellow (Yellow) 04/20/21 18:19 Urine Turbidity Clear (Clear) 04/20/21 18:19 Urine pH 7.0 (5.0-7.0) 04/20/21 18:19 Ur Specific [place] 1.010 (1.003-1.030) 04/20/21 18:19 Urine Protein 100 mg/dl mg/dL (Negative) 04/20/21 18:19 Urine Glucose (UA) 50 mg/dL (Negative) 04/20/21 18:19 Urine Ketones 20 mg/dL (Negative) 04/20/21 18:19 Urine Blood Sm (Negative) 04/20/21 18:19 Urine Nitrite Neg (Negative) 04/20/21 18:19 Urine Bilirubin Neg (Negative) 04/20/21 18:19 Urine Urobilinogen < 2.0 mg/dL (<2.0) 04/20/21 18:19 Ur Leukocyte Esterase Neg (Negative) 04/20/21 18:19 Urine WBC (Auto) 1.0 /HPF (0.0-6.0) 04/20/21 18:19 Urine RBC (Auto) 3.0 /HPF (0.0-6.0) 04/20/21 18:19 U Epithel Cells (Auto) < 1.0 /HPF (0-13.0) 04/20/21 18:19 Hyaline Casts 5 /LPF 04/20/21 18:19 Urine Mucus Few /HPF 04/20/21 18:19 Plasma/Serum Alcohol < 0.01 % (0-0.07) 04/20/21 17:44 Active Medications - Current Medications Current Medications: Generic Name Dose Route Start Last Admin Trade Name Freq PRN Reason Stop Dose Admin Acetaminophen 650 mg 04/20/21 18:41 Acetaminophen 325 Mg Tab PO Q4H PRN Pain, Mild (1-3) Albuterol 2.5 mg 04/20/21 18:41 Albuterol 2.5 Mg/3 Ml Nebu IH Q3HRT PRN Shortness Of Breath Apixaban 5 mg 04/20/21 22:00 Apixaban 5 Mg Tab PO Q12HR NAMAN Protocol Ascorbic Acid 500 mg 04/20/21 22:00 Ascorbic Acid 500 Mg Tab PO BID COUNT INCLUDES THE [facility] Aspirin 325 mg 04/21/21 10:00 Aspirin 325 Mg Tab PO QDAY COUNT INCLUDES THE [facility] Atorvastatin Calcium 40 mg 04/20/21 22:00 Atorvastatin 40 Mg Tab PO QHS NAMAN Bisacodyl 10 mg 04/20/21 18:41 Bisacodyl 10 Mg Rect Supp PA QDAY PRN Constipation Cholecalciferol 1,000 unit 04/21/21 10:00 Cholecalciferol (Vit D3) 1000 Unit (25 Mcg) Tab PO QDAY COUNT INCLUDES THE [facility] Cyclobenzaprine HCl 10 mg 04/20/21 19:00 Cyclobenzaprine 10 Mg Tab PO TID PRN Muscle Spasm Diltiazem HCl 30 mg 04/21/21 00:00 Diltiazem 30 Mg Tab PO Q6HR COUNT INCLUDES THE [facility] Folic Acid 1 mg 04/20/21 18:59 Folic Acid 1 Mg Tab PO QDAY COUNT INCLUDES THE [facility] Hydromorphone HCl 0.5 mg 04/20/21 18:41 Hydromorphone 1 Mg/1 Ml Inj IV Q6H PRN Pain , Severe (7-10) Lorazepam 2 mg 04/20/21 18:44 Lorazepam 2 Mg/Ml Vial IV Q1HR PRN CIWA-Ar 8-15 Magnesium Hydroxide 30 ml 04/20/21 18:41 Magnesium Hydroxide (Mom) Oral Liqd Udc PO Q4H PRN Constipation Methylprednisolone Sodium Succinate 40 mg 04/20/21 22:00 Methylprednisolone Sod Succinate 40 Mg/1 Ml Inj IV Q8HR COUNT INCLUDES THE [facility] Metoclopramide HCl 10 mg 04/20/21 18:41 Metoclopramide 10 Mg Tab PO Q6H PRN Nausea And Vomiting Ondansetron HCl 4 mg 04/20/21 18:41 Ondansetron 4 Mg/2 Ml Inj IV Q8H PRN Nausea And Vomiting Oxycodone/Acetaminophen 1 tab 04/20/21 18:41 Oxycodone /Acetaminophen 5-325mg Tab PO Q12H PRN Pain, Moderate (4-6) Promethazine HCl 25 mg 04/20/21 18:41 Promethazine 25 Mg Rect Supp PA Q6H PRN Nausea And Vomiting Sodium Chloride 10 ml 04/20/21 18:41 Sodium Chloride 0.9% 10 Ml Flush Syringe IV PRN PRN LINE FLUSH Zinc Sulfate 220 mg 04/20/21 22:00 Zinc Sulfate 220 Mg Cap PO BID COUNT INCLUDES THE [facility]
--- NOTE | 2021-04-21 09:44 | Vascular Lab Report ---
DUPLEX DOPPLER ULTRASOUND CAROTID, BILATERAL INDICATION / CLINICAL INFORMATION: stroke. COMPARISON: None available. FINDINGS: RIGHT CAROTID: Scattered atherosclerotic plaque - PLAQUE ESTIMATE (%): < 50% - CCA velocity: 53 cm/sec. - ICA peak systolic velocity: 86 cm/sec. - ICA/CCA PSV Ratio: 1.6 Right Vertebral Artery: Antegrade flow. LEFT CAROTID: Scattered atherosclerotic plaque - PLAQUE ESTIMATE (%): < 50% - CCA velocity: 44 cm/sec. - ICA peak systolic velocity: 66 cm/sec. - ICA/CCA PSV Ratio: 1.5 Left Vertebral Artery: Antegrade flow. IMPRESSION: 1. Right Internal Carotid Artery: Less than 50% diameter stenosis. 2. Left Internal Carotid Artery: Less than 50% diameter stenosis. Velocity criteria are extrapolated from diameter data as defined by the Society of Radiologists in Ul trasound Consensus Conference, Radiology 2003; 229;340-346. NO STENOSIS (NORMAL) - Plaque = none; ICA PSV < 125 cm/sec; ICA/CCA PSV Ratio < 2.0 <50% STENOSIS - Plaque < 50%; ICA PSV < 125 cm/sec; ICA/CCA PSV Ratio < 2.0 50-69% STENOSIS - Plaque > 50%; ICA PSV = 125-230 cm/sec; ICA/CCA PSV Ratio = 2.0-4.0 >70% BUT <100% STENOSIS - Plaque > 50%; ICA PSV > 230 cm/sec; ICA/CCA PSV Ratio > 4.0 NEAR OCCLUSION - Plaque = visible lumen; ICA PSV = high/low/none; ICA/CCA PSV Ratio = variable TOTAL OCCLUSION - Plaque = no lumen; ICA PSV = none; ICA/CCA PSV Ratio = N/A Signer Name: Chung Resendiz MD Signed: 04/21/2021 9:40 AM Workstation Name: [email or web address]
[2021-04-21] MEDS ORDERED: CHOLECALCIFEROL (VIT D3) 1000 UNIT (25 mcg) TAB PO SCH (10:00)
[2021-04-21] MEDS: ASCORBIC ACID 500 MG TAB PO SCH ×2 (12:58→17:24)
[2021-04-21] MEDS: ASPIRIN 325 MG TAB PO SCH (12:58)
[2021-04-21] MEDS: ZINC SULFATE 220 MG CAP PO SCH ×2 (12:58→17:24)
[2021-04-21] MEDS: METOPROLOL TARTRATE 50 MG TAB PO SCH ×2 (13:00→22:57)
[2021-04-21] MEDS: FOLIC ACID 1 MG TAB PO SCH ×2 (13:03→17:24)
--- NOTE | 2021-04-21 14:56 | Consultation ---
History of Present Illness Consult date: 04/21/21 Requesting physician: ABIODUN LINDO Consult reason: atrial fibrillation History of present illness: Patient is 61-year-old male past medical history of CVH with LHP, nicotine dependence, EtOH dependence who presented to the ED with a complaint of left- sided weakness and difficulty speaking. Patient states symptoms began around 2 days ago and that he waited for improvement of symptoms but after no improvement over 2 days contacted EMS. Patient was transported to [facility] where a code stroke was initiated. Patient was also discovered to be in new onset A. fib with RVR. Patient converted with IV Cardizem to sinus rhythm. Time of interview patient denies chest pain, palpitations, nausea vomiting, difficulty in breathing or diaphoresis. Patient previously unknown to our tanner garcia. Cardiology consulted for new onset A. fib with RVR Past History Past Medical History: other (See HPI) Past Surgical History: appendectomy Social history: smoking, alcohol abuse Family history: hypertension Medications and Allergies Allergies Allergy/AdvReac Type Severity Reaction Status Date / Time No Known Allergies Allergy Verified 08/24/20 14:13 Home Medications Medication Instructions Recorded Confirmed Last Taken Type Cyclobenzaprine [Flexeril 10mg] 10 mg PO TID PRN #20 tablet 01/26/14 Unknown Rx HYDROcodone/APAP 5-325 [[place] 1 each PO Q6HR PRN #20 tablet 01/26/14 Unknown Rx 5/325] Naproxen [Naprosyn TAB] 500 mg PO BID #30 tablet 01/26/14 Unknown Rx Clindamycin [Clindamycin CAP] 300 mg PO Q8H 7 Days #21 cap 08/24/20 Unknown Rx Ibuprofen [Motrin] 800 mg PO Q8HR PRN #21 tablet 08/24/20 Unknown Rx Active Meds: Active Medications Acetaminophen (Acetaminophen 325 Mg Tab) 650 mg PO Q4H PRN PRN Reason: Pain, Mild (1-3) Albuterol (Albuterol 2.5 Mg/3 Ml Nebu) 2.5 mg IH Q3HRT PRN PRN Reason: Shortness Of Breath Ascorbic Acid (Ascorbic Acid 500 Mg Tab) 500 mg PO BID [facility] Last Admin: 04/21/21 12:58 Dose: 500 mg Aspirin (Aspirin 325 Mg Tab) 325 mg PO QDAY [facility] Last Admin: 04/21/21 12:58 Dose: 325 mg Atorvastatin Calcium (Atorvastatin 40 Mg Tab) 40 mg PO QHS [facility] Bisacodyl (Bisacodyl 10 Mg Rect Supp) 10 mg IA QDAY PRN PRN Reason: Constipation Cholecalciferol (Cholecalciferol (Vit D3) 1000 Unit (25 Mcg) Tab) 1,000 unit PO QDAY [facility] Last Admin: 04/21/21 12:58 Dose: 1,000 unit Cyclobenzaprine HCl (Cyclobenzaprine 10 Mg Tab) 10 mg PO TID PRN PRN Reason: Muscle Spasm Folic Acid (Folic Acid 1 Mg Tab) 1 mg PO QDAY [facility] Last Admin: 04/21/21 13:03 Dose: 1 mg Hydromorphone HCl (Hydromorphone 1 Mg/1 Ml Inj) 0.5 mg IV Q6H PRN PRN Reason: Pain , Severe (7-10) Lorazepam (Lorazepam 2 Mg/Ml Vial) 2 mg IV Q1HR PRN PRN Reason: CIWA-Ar 8-15 Magnesium Hydroxide (Magnesium Hydroxide (Mom) Oral Liqd Udc) 30 ml PO Q4H PRN PRN Reason: Constipation Methylprednisolone Sodium Succinate (Methylprednisolone Sod Succinate 40 Mg/1 Ml Inj) 40 mg IV Q8HR [facility] Metoclopramide HCl (Metoclopramide 10 Mg Tab) 10 mg PO Q6H PRN PRN Reason: Nausea And Vomiting Metoprolol Tartrate (Metoprolol Tartrate 50 Mg Tab) 50 mg PO BID [facility] Last Admin: 04/21/21 13:00 Dose: 50 mg Ondansetron HCl (Ondansetron 4 Mg/2 Ml Inj) 4 mg IV Q8H PRN PRN Reason: Nausea And Vomiting Oxycodone/Acetaminophen (Oxycodone /Acetaminophen 5-325mg Tab) 1 tab PO Q12H PRN PRN Reason: Pain, Moderate (4-6) Promethazine HCl (Promethazine 25 Mg Rect Supp) 25 mg IA Q6H PRN PRN Reason: Nausea And Vomiting Sodium Chloride (Sodium Chloride 0.9% 10 Ml Flush Syringe) 10 ml IV PRN PRN PRN Reason: LINE FLUSH Zinc Sulfate (Zinc Sulfate 220 Mg Cap) 220 mg PO BID [facility] Last Admin: 04/21/21 12:58 Dose: 220 mg Review of Systems Constitutional: no weight loss, no weight gain, no fever, no chills Ears, nose, mouth and throat: no nasal congestion, no nasal discharge, no sinus pressure Cardiovascular: no chest pain, no orthopnea, no palpitations Respiratory: no hemoptysis, no shortness of breath, no dyspnea on exertion Gastrointestinal: no abdominal pain, no nausea, no vomiting Musculoskeletal: arm numbness/tingling, no neck stiffness, no neck pain, no shooting arm pain Integumentary: no rash, no pruritis, no redness Neurological: weakness, change in speech Psychiatric: no anxiety, no memory loss Endocrine: no cold intolerance, no heat intolerance Physical Examination Vital Signs Temp Pulse Resp BP Pulse Ox 98.0 F 135 H 16 195/112 98 04/20/21 16:33 04/20/21 16:33 04/20/21 16:33 04/20/21 16:33 04/20/21 16:33 General appearance: no acute distress HEENT: Positive: Normocephaly Neck: Positive: trachea midline Cardiac: Positive: Reg Rate and Rhythm Lungs: Positive: Decreased Breath Sounds Neuro: Positive: Grossly Intact Abdomen: Positive: Soft Skin: Negative: Rash, Suspicious Lesions, Ulceration Extremities: Present: upper extr. pulses. Absent: edema Results 04/20/21 20:41 04/20/21 20:41 Cardiac Enzymes 04/20/21 Range/Units 17:44 AST 19 (5-40) units/L CK-MB (CK-2) 2.1 (0.0-4.0) ng/mL Coagulation 04/20/21 04/20/21 Range/Units 17:44 20:41 PT 14.0 13.9 (12.2-14.9) Sec. INR 0.97 0.96 (0.87-1.13) APTT 26.1 28.0 (24.2-36.6) Sec. CBC 04/20/21 04/20/21 Range/Units 17:44 20:41 WBC 9.0 12.4 H (4.5-11.0) K/mm3 RBC 5.72 H 6.04 H (3.65-5.03) M/mm3 Hgb 16.0 H 16.6 H (11.8-15.2) gm/dl Hct 49.8 H 52.6 H (35.5-45.6) % Plt Count 322 330 (140-440) K/mm3 Lymph # (Auto) 1.2 (1.2-5.4) K/mm3 [place] # (Auto) 0.6 (0.0-0.8) K/mm3 Eos # (Auto) 0.1 (0.0-0.4) K/mm3 Baso # (Auto) 0.0 (0.0-0.1) K/mm3 Comprehensive Metabolic Panel 04/20/21 04/20/21 Range/Units 17:44 20:41 Sodium 135 L (137-145) mmol/L Potassium 3.9 (3.6-5.0) mmol/L Chloride 100.0 (98-107) mmol/L Carbon Dioxide 24 (22-30) mmol/L BUN 5 L (9-20) mg/dL Creatinine 0.9 0.7 L (0.8-1.3) mg/dL Glucose 169 H (75-100) mg/dL Calcium 9.5 (8.4-10.2) mg/dL AST 19 (5-40) units/L ALT 35 (7-56) units/L Alkaline Phosphatase 73 (35-129) units/L Total Protein 7.0 (6.3-8.2) g/dL Albumin 4.1 (3.9-5) g/dL - Imaging and Cardiology Echo: pending EKG: report reviewed, image reviewed EKG interpretations - Telemetry EKG Rhythm: Atrial Fibrillation - EKG Supraventricular dysrhythmia: atrial fibrillation Assessment and Plan Patient is 61-year-old male past medical history of CVH with LHP, nicotine dependence, EtOH dependence who presented to the ED with a complaint of left- sided weakness and difficulty speaking x 2days CVA Afib w/RVR(new onset) Etoh abuse Plan: EKG shows A. fib with RVR rate 120. LVH no acute ischemic changes. Troponin negative x1. Patient denies any chest pain Echo pending Patient having episodes of nonsustained V. tach overnight. Per nurse patient did not receive Cardizem p.o. overnight stop Cardizem and convert to metoprolol 50 mg p.o. twice daily Patient will need to be started on anticoagulation with Eliquis however but per neuro recommendations will hold Eliquis for 5 to 7 days Per neuro rec permissive hypertension Continue aspirin and Lipitor Patient seen in conjunction with Dr. Avelar who agrees with this plan of care - Patient Problems (1) Alcohol dependence Current Visit: Yes Status: Acute (2) Atrial fibrillation with RVR Current Visit: Yes Status: Acute (3) CVA (cerebral vascular accident) Current Visit: Yes Status: Acute (4) Elevated blood pressure reading Current Visit: Yes Status: Acute (5) Nicotine dependence Current Visit: Yes Status: Acute Qualifiers: Nicotine product type: cigarettes Substance use status: in withdrawal Qualified Code(s): F17.213 - Nicotine dependence, cigarettes, with withdrawal (6) Stroke Current Visit: Yes Status: Acute
[2021-04-21] MEDS: methylPREDNISolone Sod Succinate 40 MG/1 ML INJ IV SCH (17:31)
[2021-04-22] MEDS: ASCORBIC ACID 500 MG TAB PO SCH (00:15)
[2021-04-22] MEDS: ZINC SULFATE 220 MG CAP PO SCH (00:15)
[2021-04-22] MEDS: methylPREDNISolone Sod Succinate 40 MG/1 ML INJ IV SCH ×2 (00:16→05:49)
[2021-04-22] MEDS: LORazepam 2 MG/ML VIAL IV PRN ×3 (01:45→23:13)
[2021-04-22] MEDS ORDERED: HALOPERIDOL LACTATE 5 MG/1 ML INJ IM ONE (06:55)
[2021-04-22 10:51] LABS: Hematocrit 48.6 % (35.5-45.6); Hemoglobin 15.2 gm/dl (11.8-15.2); Mean Corpuscular HGB Conc 31 % (32-34); Mean Corpuscular Volume 87 fl (84-94); Platelet Count 342 K/mm3 (140-440); Red Blood Count 5.59 M/mm3 (3.65-5.03); Red Cell Distribution Width 13.9 % (13.2-15.2)
[2021-04-22] MEDS: METOPROLOL TARTRATE 50 MG TAB PO SCH ×2 (10:58→22:00)
[2021-04-22] MEDS: FOLIC ACID 1 MG TAB PO SCH (11:57)
[2021-04-22] MEDS: ASPIRIN 325 MG TAB PO SCH (11:58)
--- NOTE | 2021-04-22 12:04 | Progress Note ---
Assessment and Plan Patient is 61-year-old male past medical history of CVH with LHP, nicotine dependence, EtOH dependence who presented to the ED with a complaint of left- sided weakness and difficulty speaking x 2days CVA Afib w/RVR(new onset) Etoh abuse Echo 04/20/2021-EF 45 to 50%, left ventricular systolic function is borderline. There is hypokinesis of basal inferior septal wall. Hypokinesis inferior wall. Right ventricle systolic function is normal. Bubble study did not demonstrate PFO. Plan: Echo results noted above Patient currently heart rate controlled continue metoprolol 50 mg p.o. twice daily Patient will need to be started on anticoagulation with Eliquis however but per neuro recommendations will hold Eliquis for 5 to 7 days Per neuro rec permissive hypertension Continue aspirin and Lipitor Patient seen in conjunction with Dr. Avelar who agrees with this plan of care - Patient Problems (1) Alcohol dependence Current Visit: Yes Status: Acute (2) Atrial fibrillation with RVR Current Visit: Yes Status: Acute (3) CVA (cerebral vascular accident) Current Visit: Yes Status: Acute (4) Elevated blood pressure reading Current Visit: Yes Status: Acute (5) Nicotine dependence Current Visit: Yes Status: Acute Qualifiers: Nicotine product type: cigarettes Substance use status: in withdrawal Qualified Code(s): F17.213 - Nicotine dependence, cigarettes, with withdrawal (6) Stroke Current Visit: Yes Status: Acute Subjective Date of service: 04/22/21 Principal diagnosis: CVA Interval history: Patient has been transferred to fourth floor. Patient currently restrained resting in bed in no acute distress Sinus 60s on monitor Objective Vital Signs Temp Pulse Resp BP Pulse Ox 04/22/21 07:44 98.4 F 63 20 148/81 99 04/22/21 00:18 97 04/22/21 00:08 58 L 04/21/21 23:53 84 12 147/103 99 04/21/21 23:10 97.9 F 58 L 18 175/77 99 04/21/21 22:57 77 147/103 04/21/21 22:29 147/103 04/21/21 22:01 54 L 14 161/78 98 04/21/21 21:45 54 L 13 161/78 04/21/21 21:31 56 L 13 161/78 04/21/21 21:15 78 20 197/101 04/21/21 21:01 62 13 197/101 99 04/21/21 20:45 60 12 202/107 98 04/21/21 20:31 76 15 202/107 04/21/21 20:15 63 14 186/97 100 04/21/21 20:01 53 L 13 186/97 100 04/21/21 19:45 55 L 16 174/100 100 04/21/21 19:31 70 13 219/92 04/21/21 19:15 60 11 L 219/92 83 L 04/21/21 19:01 56 L 11 L 219/92 100 04/21/21 18:45 54 L 16 203/104 99 04/21/21 18:34 98.0 F 58 L 04/21/21 18:31 51 L 12 203/104 100 04/21/21 18:15 52 L 10 L 188/89 99 04/21/21 18:01 51 L 12 188/89 100 04/21/21 17:45 60 8 L 181/93 99 04/21/21 17:31 55 L 19 181/93 99 04/21/21 17:15 63 15 181/93 100 04/21/21 17:01 49 L 12 181/93 100 04/21/21 16:45 51 L 12 181/93 100 04/21/21 16:31 49 L 12 181/93 99 04/21/21 16:15 49 L 13 181/93 100 04/21/21 16:01 50 L 12 181/93 99 04/21/21 15:48 194/99 100 04/21/21 15:31 194/99 100 04/21/21 15:15 194/99 98 04/21/21 15:01 194/99 100 04/21/21 14:45 55 L 13 194/99 100 04/21/21 14:31 54 L 13 194/99 100 04/21/21 14:15 53 L 14 193/99 04/21/21 14:01 56 L 14 193/99 04/21/21 13:45 55 L 14 186/99 04/21/21 13:31 62 15 186/99 04/21/21 13:15 67 9 L 186/99 04/21/21 13:01 60 16 186/99 98 04/21/21 12:45 64 15 186/99 100 04/21/21 12:31 59 L 14 186/99 99 04/21/21 12:15 56 L 14 186/99 99 - Physical Examination General: No Apparent Distress HEENT: Positive: Normocephaly Neck: Positive: trachea midline Cardiac: Positive: Reg Rate and Rhythm Lungs: Positive: Normal Breath Sounds Neuro: Positive: Grossly Intact Abdomen: Positive: Soft Skin: Negative: Rash, Suspicious Lesions, Ulceration Extremities: Present: upper extr. pulses. Absent: edema - Labs and Meds CBC 04/22/21 Range/Units 10:04 WBC 15.2 H (4.5-11.0) K/mm3 RBC 5.59 H (3.65-5.03) M/mm3 Hgb 15.2 (11.8-15.2) gm/dl Hct 48.6 H (35.5-45.6) % Plt Count 342 (140-440) K/mm3 - Imaging and Cardiology EKG: report reviewed, image reviewed Echo: report reviewed - Telemetry EKG Rhythm: Sinus Rhythm - EKG Sinus rhythms and dysrhythmias: sinus rhythm
[2021-04-22 12:12] LABS: BUN/Creatinine Ratio 11; Blood Urea Nitrogen 11 mg/dL (9-20); Calcium 10.3 mg/dL (8.4-10.2); Hemolysis Index 9
--- NOTE | 2021-04-22 15:45 | Progress Note ---
Assessment and Plan Assessment and plan: #Acute CVA Continue permissive hypertension per neurology Continue aspirin 325 mg daily Lipitor 40 mg daily Neurology consulted; appreciate recs TTE revealing EF 45-50% with hypokinesis of the basal inferior septal wall, hypokinesis of the inferior wall. No PFO was detected. Physical therapy/Occupational Therapy recommended subacute rehab continue monitor #Atrial fibrillation with RVR (new onset) Cardiology consulted; appreciate recs Cardiology recommending anticoagulation; however, Eliquis 5 mg twice daily will not be started until 5-7 days out from CVA Continue metoprolol tartrate 50 mg twice daily for rate control #Tobacco dependence #Tobacco/Smoking cessation counseling - Counseled patient about the importance of smoking cessation and the possible sequelae as a result of continued tobacco consumption. The patient expresses understanding. -Time: +10 mins #Alcohol dependence - Counseled patient on the importance of ETOH cessation. Assess patient's current ETOH consumption. Assisted with trying to arrange resources for patient to adequately work towards ETOH cessation. Patient expresses understanding. Continue CIWA protocol -Time: +10 mins #Advanced care planning -Disease education conducted, care plan discussed, diagnoses discussed, prognosis discussed, and patient acknowledges understanding with care plan -Time: +30 min #Discharge planning - Patient is pending subacute rehab placement - Case management has been made aware. Disposition Plan: Pending acute rehab placement Total Time Spent with Patient (Minutes): 40 minutes History Interval history: No acute events overnight. Hospitalist Physical - Constitutional Vitals: Temp Pulse Resp BP Pulse Ox 98.4 F 63 20 148/81 99 04/22/21 07:44 04/22/21 07:44 04/22/21 07:44 04/22/21 07:44 04/22/21 07:44 General appearance: Present: no acute distress, well-nourished - EENT Eyes: Present: PERRL, EOM intact ENT: hearing intact, clear oral mucosa, dentition normal - Neck Neck: Present: supple, normal ROM - Respiratory Respiratory effort: normal - Cardiovascular Rhythm: regular Heart Sounds: Present: S1 & S2 - Extremities Extremities: no ischemia, pulses intact, pulses symmetrical, No edema, normal temperature, normal color Peripheral Pulses: within normal limits - Abdominal General gastrointestinal: soft, non-tender, non-distended, normal bowel sounds - Integumentary Integumentary: Present: clear, warm, dry - Allied Health Allied health notes reviewed: nursing HEART Score - HEART Score Troponin: Troponin T 0.011 ng/mL (0.00-0.029) 04/20/21 17:44 Results - Labs CBC & Chem 7: 04/22/21 10:04 04/22/21 10:04 Labs: Laboratory Last Values WBC 15.2 K/mm3 (4.5-11.0) H 04/22/21 10:04 RBC 5.59 M/mm3 (3.65-5.03) H 04/22/21 10:04 Hgb 15.2 gm/dl (11.8-15.2) 04/22/21 10:04 Hct 48.6 % (35.5-45.6) H 04/22/21 10:04 MCV 87 fl (84-94) 04/22/21 10:04 MCH 27 pg (28-32) L 04/22/21 10:04 MCHC 31 % (32-34) L 04/22/21 10:04 RDW 13.9 % (13.2-15.2) 04/22/21 10:04 Plt Count 342 K/mm3 (140-440) 04/22/21 10:04 Lymph % (Auto) 13.6 % (13.4-35.0) 04/20/21 17:44 [place] % (Auto) 6.9 % (0.0-7.3) 04/20/21 17:44 Eos % (Auto) 0.6 % (0.0-4.3) 04/20/21 17:44 Baso % (Auto) 0.4 % (0.0-1.8) 04/20/21 17:44 Lymph # (Auto) 1.2 K/mm3 (1.2-5.4) 04/20/21 17:44 [place] # (Auto) 0.6 K/mm3 (0.0-0.8) 04/20/21 17:44 Eos # (Auto) 0.1 K/mm3 (0.0-0.4) 04/20/21 17:44 Baso # (Auto) 0.0 K/mm3 (0.0-0.1) 04/20/21 17:44 Seg Neutrophils % 78.5 % (40.0-70.0) H 04/20/21 17:44 Seg Neutrophils # 7.1 K/mm3 (1.8-7.7) 04/20/21 17:44 PT 13.9 Sec. (12.2-14.9) 04/20/21 20:41 INR 0.96 (0.87-1.13) 04/20/21 20:41 APTT 28.0 Sec. (24.2-36.6) 04/20/21 20:41 Thrombin Time 16.2 Sec. (15.1-19.6) 04/20/21 17:44 Sodium 146 mmol/L (137-145) H D 04/22/21 10:04 Potassium 3.6 mmol/L (3.6-5.0) 04/22/21 10:04 Chloride 104.9 mmol/L (98-107) 04/22/21 10:04 Carbon Dioxide 23 mmol/L (22-30) 04/22/21 10:04 Anion Gap 22 mmol/L 04/22/21 10:04 BUN 11 mg/dL (9-20) 04/22/21 10:04 Creatinine 1.0 mg/dL (0.8-1.3) 04/22/21 10:04 Estimated GFR > 60 ml/min 04/22/21 10:04 BUN/Creatinine Ratio 11 % 04/22/21 10:04 Glucose 104 mg/dL (75-100) H 04/22/21 10:04 Calcium 10.3 mg/dL (8.4-10.2) H 04/22/21 10:04 Magnesium 1.90 mg/dL (1.7-2.3) 04/20/21 17:44 Total Bilirubin 0.40 mg/dL (0.1-1.2) 04/20/21 17:44 AST 19 units/L (5-40) 04/20/21 17:44 ALT 35 units/L (7-56) 04/20/21 17:44 Alkaline Phosphatase 73 units/L (35-129) 04/20/21 17:44 Total Creatine Kinase 79 units/L (55-170) 04/20/21 17:44 Total Creatine Kinase 81 units/L (55-170) 04/20/21 17:44 CK-MB (CK-2) 2.1 ng/mL (0.0-4.0) 04/20/21 17:44 CK-MB (CK-2) Rel Index 2.6 (0-4) 04/20/21 17:44 Troponin T 0.011 ng/mL (0.00-0.029) 04/20/21 17:44 Total Protein 7.0 g/dL (6.3-8.2) 04/20/21 17:44 Albumin 4.1 g/dL (3.9-5) 04/20/21 17:44 Albumin/Globulin Ratio 1.4 % 04/20/21 17:44 TSH 1.040 mlU/mL (0.270-4.200) 04/20/21 19:42 Free T4 1.16 ng/dL (0.76-1.46) 04/20/21 19:42 Urine Color Yellow (Yellow) 04/20/21 18:19 Urine Turbidity Clear (Clear) 04/20/21 18:19 Urine pH 7.0 (5.0-7.0) 04/20/21 18:19 Ur Specific [place] 1.010 (1.003-1.030) 04/20/21 18:19 Urine Protein 100 mg/dl mg/dL (Negative) 04/20/21 18:19 Urine Glucose (UA) 50 mg/dL (Negative) 04/20/21 18:19 Urine Ketones 20 mg/dL (Negative) 04/20/21 18:19 Urine Blood Sm (Negative) 04/20/21 18:19 Urine Nitrite Neg (Negative) 04/20/21 18:19 Urine Bilirubin Neg (Negative) 04/20/21 18:19 Urine Urobilinogen < 2.0 mg/dL (<2.0) 04/20/21 18:19 Ur Leukocyte Esterase Neg (Negative) 04/20/21 18:19 Urine WBC (Auto) 1.0 /HPF (0.0-6.0) 04/20/21 18:19 Urine RBC (Auto) 3.0 /HPF (0.0-6.0) 04/20/21 18:19 U Epithel Cells (Auto) < 1.0 /HPF (0-13.0) 04/20/21 18:19 Hyaline Casts 5 /LPF 04/20/21 18:19 Urine Mucus Few /HPF 04/20/21 18:19 Plasma/Serum Alcohol < 0.01 % (0-0.07) 04/20/21 17:44 Active Medications - Current Medications Current Medications: Generic Name Dose Route Start Last Admin Trade Name Freq PRN Reason Stop Dose Admin Acetaminophen 650 mg 04/20/21 18:41 Acetaminophen 325 Mg Tab PO Q4H PRN Pain, Mild (1-3) Albuterol 2.5 mg 04/20/21 18:41 Albuterol 2.5 Mg/3 Ml Nebu IH Q3HRT PRN Shortness Of Breath Aspirin 325 mg 04/21/21 10:00 04/21/21 12:58 Aspirin 325 Mg Tab PO 325 mg QDAY NAMAN Administration Atorvastatin Calcium 40 mg 04/20/21 22:00 04/21/21 22:57 Atorvastatin 40 Mg Tab PO 40 mg QHS NAMAN Administration Bisacodyl 10 mg 04/20/21 18:41 Bisacodyl 10 Mg Rect Supp MO QDAY PRN Constipation Cyclobenzaprine HCl 10 mg 04/20/21 19:00 Cyclobenzaprine 10 Mg Tab PO TID PRN Muscle Spasm Folic Acid 1 mg 04/20/21 18:59 04/21/21 17:24 Folic Acid 1 Mg Tab PO Not Given QDAY [facility] Hydromorphone HCl 0.5 mg 04/20/21 18:41 Hydromorphone 1 Mg/1 Ml Inj IV Q6H PRN Pain , Severe (7-10) Lorazepam 2 mg 04/20/21 18:44 04/22/21 01:45 Lorazepam 2 Mg/Ml Vial IV 2 mg Q1HR PRN Administration CIWA-Ar 8-15 Magnesium Hydroxide 30 ml 04/20/21 18:41 Magnesium Hydroxide (Mom) Oral Liqd Udc PO Q4H PRN Constipation Metoclopramide HCl 10 mg 04/20/21 18:41 Metoclopramide 10 Mg Tab PO Q6H PRN Nausea And Vomiting Metoprolol Tartrate 50 mg 04/21/21 13:00 04/21/21 22:57 Metoprolol Tartrate 50 Mg Tab PO 50 mg BID NAMAN Administration Ondansetron HCl 4 mg 04/20/21 18:41 Ondansetron 4 Mg/2 Ml Inj IV Q8H PRN Nausea And Vomiting Oxycodone/Acetaminophen 1 tab 04/20/21 18:41 Oxycodone /Acetaminophen 5-325mg Tab PO Q12H PRN Pain, Moderate (4-6) Promethazine HCl 25 mg 04/20/21 18:41 Promethazine 25 Mg Rect Supp MO Q6H PRN Nausea And Vomiting Sodium Chloride 10 ml 04/20/21 18:41 Sodium Chloride 0.9% 10 Ml Flush Syringe IV PRN PRN LINE FLUSH
[2021-04-22] MEDS: HYDROmorphone 1 MG/1 ML INJ IV PRN (16:30)
[2021-04-22] MEDS ORDERED: dilTIAZem 25 MG/5 ML INJ IV ONE (23:28)
[2021-04-23] MEDS: LORazepam 2 MG/ML VIAL IV PRN ×3 (01:30→22:10)
[2021-04-23 06:10] LABS: Basophils # (Auto) 0.1 K/mm3 (0.0-0.1); Basophils % (Auto) 0.6 % (0.0-1.8); Lymphocytes # (Auto) 1.9 K/mm3 (1.2-5.4); Lymphocytes % (Auto) 14.8 % (13.4-35.0); Mean Corpuscular HGB Conc 32 % (32-34); Mean Corpuscular Volume 87 fl (84-94); Monocytes # (Auto) 1.3 K/mm3 (0.0-0.8); Platelet Count 346 K/mm3 (140-440); Red Blood Count 5.74 M/mm3 (3.65-5.03); Red Cell Distribution Width 13.8 % (13.2-15.2)
[2021-04-23] MEDS ORDERED: dilTIAZem 25 MG/5 ML INJ IV ONE (06:23)
[2021-04-23 06:27] LABS: BUN/Creatinine Ratio 11; Blood Urea Nitrogen 13 mg/dL (9-20); Calcium 9.8 mg/dL (8.4-10.2); Hemolysis Index 12
[2021-04-23] MEDS: ASPIRIN 325 MG TAB PO SCH (10:40)
[2021-04-23] MEDS: FOLIC ACID 1 MG TAB PO SCH (10:40)
[2021-04-23] MEDS: METOPROLOL TARTRATE 50 MG TAB PO SCH (10:40)
[2021-04-23] MEDS ORDERED: AMIODARONE 150 MG in DEXTROSE 5% IN WATER 97 ML IV ONE (11:00)
[2021-04-23] MEDS ORDERED: LIPASE 10,500/PROTEASE 25,000/AMYLASE 43,750 (UNITS) DR CAP FEEDTUBE PRN (11:30)
[2021-04-23] MEDS ORDERED: SIMPLE SYRUP 15 ML FEEDTUBE PRN ×2 (11:30)
[2021-04-23] MEDS ORDERED: SODIUM BICARBONATE 325 MG TAB FEEDTUBE PRN (11:30)
[2021-04-23] MEDS: AMIODARONE 360 MG in DEXTROSE 5% IN WATER 192.8 ML IV SCH (11:36)
--- NOTE | 2021-04-23 13:01 | Progress Note ---
Assessment and Plan Patient is 61-year-old male past medical history of CVH with LHP, nicotine dependence, EtOH dependence who presented to the ED with a complaint of left- sided weakness and difficulty speaking x 2days CVA Afib w/RVR(new onset) Etoh abuse Echo 04/20/2021-EF 45 to 50%, left ventricular systolic function is borderline. There is hypokinesis of basal inferior septal wall. Hypokinesis inferior wall. Right ventricle systolic function is normal. Bubble study did not demonstrate PFO. Plan: Due to patient's A. fib with RVR will initiate amiodarone drip and bolus continue metoprolol 50 mg p.o. twice daily Patient will need to be started on anticoagulation with Eliquis however but per neuro recommendations will hold Eliquis for 5 to 7 days Continue aspirin and Lipitor Patient seen in conjunction with Dr. Avelar who agrees with this plan of care - Patient Problems (1) Alcohol dependence Current Visit: Yes Status: Acute (2) Atrial fibrillation with RVR Current Visit: Yes Status: Acute (3) CVA (cerebral vascular accident) Current Visit: Yes Status: Acute (4) Elevated blood pressure reading Current Visit: Yes Status: Acute (5) Nicotine dependence Current Visit: Yes Status: Acute Qualifiers: Nicotine product type: cigarettes Substance use status: in withdrawal Qualified Code(s): F17.213 - Nicotine dependence, cigarettes, with withdrawal (6) Stroke Current Visit: Yes Status: Acute Subjective Date of service: 04/23/21 Principal diagnosis: CVA Interval history: Patient patient remains lethargic and is still restrained. No acute distress Patient has been in A. fib with RVR with rate trending 150s and as high into 180s since yesterday evening around 6 PM unknown as to why we were not contacted Objective Vital Signs Temp Pulse Resp BP Pulse Ox 04/23/21 10:40 134 H 04/23/21 09:37 98.6 F 69 20 144/92 98 04/23/21 06:30 171 H 04/23/21 04:37 97.7 F 150 H 18 137/94 97 04/23/21 00:05 168 H 04/23/21 00:00 120 H 96 04/22/21 23:42 97.5 F L 85 18 104/80 93 04/22/21 19:50 98.5 F 72 18 132/90 99 04/22/21 16:44 98.1 F 73 20 138/83 100 - Physical Examination General: No Apparent Distress, Other HEENT: Positive: Normocephaly Neck: Positive: trachea midline Cardiac: Positive: irregularly irregular (Lethargic), Tachycardia Lungs: Positive: Normal Breath Sounds Neuro: Positive: Grossly Intact Abdomen: Positive: Soft Skin: Negative: Rash, Suspicious Lesions, Ulceration Extremities: Present: upper extr. pulses. Absent: edema - Labs and Meds CBC 04/23/21 Range/Units 04:53 WBC 12.8 H (4.5-11.0) K/mm3 RBC 5.74 H (3.65-5.03) M/mm3 Hgb 16.0 H (11.8-15.2) gm/dl Hct 50.0 H (35.5-45.6) % Plt Count 346 (140-440) K/mm3 Lymph # (Auto) 1.9 (1.2-5.4) K/mm3 [place] # (Auto) 1.3 H (0.0-0.8) K/mm3 Eos # (Auto) 0.0 (0.0-0.4) K/mm3 Baso # (Auto) 0.1 (0.0-0.1) K/mm3 Comprehensive Metabolic Panel 04/23/21 Range/Units 04:53 Sodium 146 H (137-145) mmol/L Potassium 3.5 L (3.6-5.0) mmol/L Chloride 106.0 (98-107) mmol/L Carbon Dioxide 19 L (22-30) mmol/L BUN 13 (9-20) mg/dL Creatinine 1.2 (0.8-1.3) mg/dL Glucose 144 H (75-100) mg/dL Calcium 9.8 (8.4-10.2) mg/dL - Imaging and Cardiology EKG: report reviewed, image reviewed Echo: report reviewed - Telemetry EKG Rhythm: Atrial Fibrillation - EKG Sinus rhythms and dysrhythmias: sinus rhythm Supraventricular dysrhythmia: atrial fibrillation
--- NOTE | 2021-04-23 14:51 | XRay Report ---
ABDOMEN 1 VIEW 04/23/2021 1:44 PM INDICATION / CLINICAL INFORMATION: NGT placement. COMPARISON: None available. FINDINGS: TUBES / LINES: There is a nasogastric tube with the tip overlying the distal esophagus. BOWEL GAS PATTERN: No significant abnormality. FREE AIR / EXTRALUMINAL GAS: None. ADDITIONAL FINDINGS: No significant additional findings. IMPRESSION: The tip of the nasogastric tube overlies the distal esophagus. The nasogastric tube will need to be advanced. Signer Name: Kaden Eaton MD Signed: 04/23/2021 2:47 PM Workstation Name: [id number]
--- NOTE | 2021-04-23 17:28 | XRay Report ---
XR abdomen 1V ap INDICATION: ngt placement COMPARISON: Earlier same day. FINDINGS/IMPRESSION: Enteric tube has been advanced and now terminates in the fundus the stomach. Side-port is beneath the GE junction. Signer Name: Igor Cadena MD Signed: 04/23/2021 5:23 PM Workstation Name: [id number]
--- NOTE | 2021-04-23 18:56 | Progress Note ---
Assessment and Plan Assessment and plan: #Acute CVA Continue permissive hypertension per neurology Continue aspirin 325 mg daily Lipitor 40 mg daily Neurology consulted; appreciate recs TTE revealing EF 45-50% with hypokinesis of the basal inferior septal wall, hypokinesis of the inferior wall. No PFO was detected. Physical therapy/Occupational Therapy recommended subacute rehab continue monitor #Atrial fibrillation with RVR (new onset) Cardiology consulted; appreciate recs Cardiology recommending anticoagulation; however, Eliquis 5 mg twice daily will not be started until 5-7 days out from CVA Continue metoprolol tartrate 50 mg twice daily for rate control. Starting amiodarone with bolus to control a-fib with RVR #Tobacco dependence #Tobacco/Smoking cessation counseling - Counseled patient about the importance of smoking cessation and the possible sequelae as a result of continued tobacco consumption. The patient expresses understanding. -Time: +10 mins #Alcohol dependence - Counseled patient on the importance of ETOH cessation. Assess patient's current ETOH consumption. Assisted with trying to arrange resources for patient to adequately work towards ETOH cessation. Patient expresses understanding. Continue CIWA protocol -Time: +10 mins #Advanced care planning -Disease education conducted, care plan discussed, diagnoses discussed, prognosis discussed, and patient acknowledges understanding with care plan -Time: +30 min #Discharge planning - Patient is pending subacute rehab placement - Case management has been made aware. #Social - patient currently does not have any family that is open to taking responsibility of the patient. His has recently . There is a friend that is actively involved. - Patient will require a PEG tube prior to discharge. GI will need to determine who can legallly give consent prior to moving forward with this procedure. Disposition Plan: Pending SNF placement Total Time Spent with Patient (Minutes): 45 min History Interval history: The patient was in [place] for approximately 5 minutes last night. Hospitalist Physical - Constitutional Vitals: Temp Pulse Resp BP Pulse Ox 97.9 F 85 18 178/92 99 04/23/21 16:25 04/23/21 16:25 04/23/21 16:25 04/23/21 16:25 04/23/21 16:25 General appearance: Present: no acute distress, well-nourished - EENT Eyes: Present: PERRL, EOM intact ENT: clear oral mucosa - Neck Neck: Present: supple, normal ROM - Respiratory Respiratory effort: normal Respiratory: bilateral: CTA - Cardiovascular Heart rate: 140 Rhythm: irregularly irregular Heart Sounds: Present: S1 & S2 - Extremities Extremities: no ischemia, pulses intact, pulses symmetrical, No edema, normal temperature, normal color Peripheral Pulses: within normal limits - Abdominal General gastrointestinal: soft, non-tender, non-distended, normal bowel sounds - Integumentary Integumentary: Present: clear, warm, dry - Psychiatric Psychiatric: other (Unable to assess given medical condition) - Neurologic Neurologic: other (Unable to assess given medical condition) HEART Score - HEART Score Troponin: Troponin T 0.011 ng/mL (0.00-0.029) 04/20/21 17:44 Results - Labs CBC & Chem 7: 04/23/21 04:53 04/23/21 04:53 Labs: Laboratory Last Values WBC 12.8 K/mm3 (4.5-11.0) H 04/23/21 04:53 RBC 5.74 M/mm3 (3.65-5.03) H 04/23/21 04:53 Hgb 16.0 gm/dl (11.8-15.2) H 04/23/21 04:53 Hct 50.0 % (35.5-45.6) H 04/23/21 04:53 MCV 87 fl (84-94) 04/23/21 04:53 MCH 28 pg (28-32) 04/23/21 04:53 MCHC 32 % (32-34) 04/23/21 04:53 RDW 13.8 % (13.2-15.2) 04/23/21 04:53 Plt Count 346 K/mm3 (140-440) 04/23/21 04:53 Lymph % (Auto) 14.8 % (13.4-35.0) 04/23/21 04:53 [place] % (Auto) 10.0 % (0.0-7.3) H 04/23/21 04:53 Eos % (Auto) 0.0 % (0.0-4.3) 04/23/21 04:53 Baso % (Auto) 0.6 % (0.0-1.8) 04/23/21 04:53 Lymph # (Auto) 1.9 K/mm3 (1.2-5.4) 04/23/21 04:53 [place] # (Auto) 1.3 K/mm3 (0.0-0.8) H 04/23/21 04:53 Eos # (Auto) 0.0 K/mm3 (0.0-0.4) 04/23/21 04:53 Baso # (Auto) 0.1 K/mm3 (0.0-0.1) 04/23/21 04:53 Seg Neutrophils % 74.6 % (40.0-70.0) H 04/23/21 04:53 Seg Neutrophils # 9.6 K/mm3 (1.8-7.7) H 04/23/21 04:53 PT 13.9 Sec. (12.2-14.9) 04/20/21 20:41 INR 0.96 (0.87-1.13) 04/20/21 20:41 APTT 28.0 Sec. (24.2-36.6) 04/20/21 20:41 Thrombin Time 16.2 Sec. (15.1-19.6) 04/20/21 17:44 Sodium 146 mmol/L (137-145) H 04/23/21 04:53 Potassium 3.5 mmol/L (3.6-5.0) L 04/23/21 04:53 Chloride 106.0 mmol/L (98-107) 04/23/21 04:53 Carbon Dioxide 19 mmol/L (22-30) L 04/23/21 04:53 Anion Gap 25 mmol/L 04/23/21 04:53 BUN 13 mg/dL (9-20) 04/23/21 04:53 Creatinine 1.2 mg/dL (0.8-1.3) 04/23/21 04:53 Estimated GFR > 60 ml/min 04/23/21 04:53 BUN/Creatinine Ratio 11 % 04/23/21 04:53 Glucose 144 mg/dL (75-100) H 04/23/21 04:53 Calcium 9.8 mg/dL (8.4-10.2) 04/23/21 04:53 Magnesium 1.90 mg/dL (1.7-2.3) 04/20/21 17:44 Total Bilirubin 0.40 mg/dL (0.1-1.2) 04/20/21 17:44 AST 19 units/L (5-40) 04/20/21 17:44 ALT 35 units/L (7-56) 04/20/21 17:44 Alkaline Phosphatase 73 units/L (35-129) 04/20/21 17:44 Total Creatine Kinase 79 units/L (55-170) 04/20/21 17:44 Total Creatine Kinase 81 units/L (55-170) 04/20/21 17:44 CK-MB (CK-2) 2.1 ng/mL (0.0-4.0) 04/20/21 17:44 CK-MB (CK-2) Rel Index 2.6 (0-4) 04/20/21 17:44 Troponin T 0.011 ng/mL (0.00-0.029) 04/20/21 17:44 Total Protein 7.0 g/dL (6.3-8.2) 04/20/21 17:44 Albumin 4.1 g/dL (3.9-5) 04/20/21 17:44 Albumin/Globulin Ratio 1.4 % 04/20/21 17:44 TSH 1.040 mlU/mL (0.270-4.200) 04/20/21 19:42 Free T4 1.16 ng/dL (0.76-1.46) 04/20/21 19:42 Urine Color Yellow (Yellow) 04/20/21 18:19 Urine Turbidity Clear (Clear) 04/20/21 18:19 Urine pH 7.0 (5.0-7.0) 04/20/21 18:19 Ur Specific [place] 1.010 (1.003-1.030) 04/20/21 18:19 Urine Protein 100 mg/dl mg/dL (Negative) 04/20/21 18:19 Urine Glucose (UA) 50 mg/dL (Negative) 04/20/21 18:19 Urine Ketones 20 mg/dL (Negative) 04/20/21 18:19 Urine Blood Sm (Negative) 04/20/21 18:19 Urine Nitrite Neg (Negative) 04/20/21 18:19 Urine Bilirubin Neg (Negative) 04/20/21 18:19 Urine Urobilinogen < 2.0 mg/dL (<2.0) 04/20/21 18:19 Ur Leukocyte Esterase Neg (Negative) 04/20/21 18:19 Urine WBC (Auto) 1.0 /HPF (0.0-6.0) 04/20/21 18:19 Urine RBC (Auto) 3.0 /HPF (0.0-6.0) 04/20/21 18:19 U Epithel Cells (Auto) < 1.0 /HPF (0-13.0) 04/20/21 18:19 Hyaline Casts 5 /LPF 04/20/21 18:19 Urine Mucus Few /HPF 04/20/21 18:19 Plasma/Serum Alcohol < 0.01 % (0-0.07) 04/20/21 17:44 Active Medications - Current Medications Current Medications: Generic Name Dose Route Start Last Admin Trade Name Freq PRN Reason Stop Dose Admin Acetaminophen 650 mg 04/20/21 18:41 Acetaminophen 325 Mg Tab PO Q4H PRN Pain, Mild (1-3) Albuterol 2.5 mg 04/20/21 18:41 Albuterol 2.5 Mg/3 Ml Nebu IH Q3HRT PRN Shortness Of Breath Lipase/Protease/Amylase 1 each 04/23/21 11:30 Lipase 10,500/Protease 25,000/Amylase 43,750 (Units) Dr Willingham FEEDTUBE PRN PRN For Clogged Feeding Tube Aspirin 325 mg 04/21/21 10:00 04/23/21 10:40 Aspirin 325 Mg Tab PO Not Given QDAY NAMAN Atorvastatin Calcium 40 mg 04/20/21 22:00 04/22/21 22:00 Atorvastatin 40 Mg Tab PO Not Given QHS NAMAN Bisacodyl 10 mg 04/20/21 18:41 Bisacodyl 10 Mg Rect Supp GA QDAY PRN Constipation Cyclobenzaprine HCl 10 mg 04/20/21 19:00 Cyclobenzaprine 10 Mg Tab PO TID PRN Muscle Spasm Folic Acid 1 mg 04/20/21 18:59 04/23/21 10:40 Folic Acid 1 Mg Tab PO Not Given QDAY [facility] Hydromorphone HCl 0.5 mg 04/20/21 18:41 04/22/21 16:30 Hydromorphone 1 Mg/1 Ml Inj IV 0.5 mg Q6H PRN Administration Pain , Severe (7-10) Amiodarone HCl 360 mg/ 200 mls @ 33.333 mls/hr 04/23/21 11:00 04/23/21 11:36 Dextrose IV 1 mg/min DIRECT NAMAN 33.333 mls/hr Administration Protocol 1 MG/MIN Lorazepam 2 mg 04/20/21 18:44 04/23/21 05:39 Lorazepam 2 Mg/Ml Vial IV 2 mg Q1HR PRN Administration CIWA-Ar 8-15 Magnesium Hydroxide 30 ml 04/20/21 18:41 Magnesium Hydroxide (Mom) Oral Liqd Udc PO Q4H PRN Constipation Metoclopramide HCl 10 mg 04/20/21 18:41 Metoclopramide 10 Mg Tab PO Q6H PRN Nausea And Vomiting Metoprolol Tartrate 50 mg 04/21/21 13:00 04/23/21 10:40 Metoprolol Tartrate 50 Mg Tab PO Not Given BID NAMAN Ondansetron HCl 4 mg 04/20/21 18:41 Ondansetron 4 Mg/2 Ml Inj IV Q8H PRN Nausea And Vomiting Oxycodone/Acetaminophen 1 tab 04/20/21 18:41 Oxycodone /Acetaminophen 5-325mg Tab PO Q12H PRN Pain, Moderate (4-6) Promethazine HCl 25 mg 04/20/21 18:41 Promethazine 25 Mg Rect Supp GA Q6H PRN Nausea And Vomiting Simple Syrup 15 ml 04/23/21 11:30 Simple Syrup 15 Ml FEEDTUBE PRN PRN Hypoglycemia Simple Syrup 30 ml 04/23/21 11:30 Simple Syrup 15 Ml FEEDTUBE PRN PRN Hypoglycemia Sodium Bicarbonate 325 mg 04/23/21 11:30 Sodium Bicarbonate 325 Mg Tab FEEDTUBE PRN PRN For Clogged Feeding Tube Sodium Chloride 10 ml 04/20/21 18:41 Sodium Chloride 0.9% 10 Ml Flush Syringe IV PRN PRN LINE FLUSH Nutrition/Malnutrition Assess - Dietary Evaluation Nutrition/Malnutrition Findings: Nutrition Notes Start: 04/23/21 12:36 Freq: Status: Active Protocol: Document 04/23/21 12:36 ANNIKA (Rec: 04/23/21 13:25 ANNIKA [id number]) Nutrition Notes Need for Assessment generated from: MD Order Initial or Follow up Assessment Current Diagnosis Hypertension,Stroke Other Pertinent Diagnosis Atrial Fibrilation w/RVR, EtOH & Tobacco dependence. Current Diet TF-Jevity 1.2 Maurice @ 68 ml/hr ( since D 04/23). Labs/Tests 04/23: [place] 146, K 3.5, CO2 19, Glu 144. Pertinent Medications 04/23: Nutritionally unremarkable. Height 6 ft 3 in Weight 91.3 kg [place] Body Weight (kg) 89.09 BMI 25.1 Intake Prior to Admission Good Weight change and time frame Pt states not having loss body weight [employer]. Weight Status Overweight Subjective/Other Information RD consult for write/ manage TF. SURVEYOR'S ASSISTANT: Pt at significant risk for aspiration, will reassess 04/24. Pt lethargic and hard to arousal and follow commands . Pt awaiting for subacute rehab placement. Percent of energy/protein needs met: Prescribed Jevity 1.2 Maurice @ 68 ml/hr provides for energy/ protein needs (1,804 Kcal/77 g ) during LOS, 91% Kcal; 100% AA. Burn Absent Trauma Absent GI Symptoms None Food Allergy No Skin Integrity/Comment Clear, warm, dry. Minimum of two criteria No #1 Nutrition Diagnosis Inadequate oral intake Etiology Failed SURVEYOR'S ASSISTANT evaluation As Evidenced by Signs and Symptoms Pt is on NPO at the time. Is patient on ventilator? No Is Patient Ambulatory and/or Out of Bed No REE-([facility]-confined to bed) [phone] Calculation Used for Recommendations [facility] Additional Notes Protein: 0.8-1 g/Kg; 73-91 g/ day. Fluids: 1 ml/Kcal, or as per MD. Nutrition Intervention Nutrition Support: Start Jevity 1.2 Maurice @ 68 ml/ hr. Flush: 150 ml water Q 4 hr, or as per MD. Kcal 1,960 Protein (gm) 91 Carbohydrates (gm) 277 Fat (gm) 64 Fluid (mL) 1,318 Fiber (gm) 29 % RDI: 91% Kcal; 100% AA. Goal #1 Provide at least 75% of energy /protein needs through Enteral Feeding during LOS. Goal #2 Maintain body weight within +/ -3% of admission body weight during LOS. Follow-Up By: 04/25/21 Additional Comments Continue monitoring TF tolerance and BM.
--- NOTE | 2021-04-23 20:50 | XRay Report ---
ABDOMEN 1 VIEW(S) INDICATION / CLINICAL INFORMATION: tube plancement. COMPARISON: None available. FINDINGS: TUBES / LINES: NG tube in satisfactory position. BOWEL GAS PATTERN: No significant abnormality. ADDITIONAL FINDINGS: No significant additional findings. Signer Name: Emanuel Arango MD Signed: 04/23/2021 8:45 PM Workstation Name: [id number]
[2021-04-24] MEDS: METOPROLOL TARTRATE 50 MG TAB PO SCH ×3 (00:44→21:52)
[2021-04-24] MEDS: AMIODARONE 360 MG in DEXTROSE 5% IN WATER 192.8 ML IV SCH (06:20)
[2021-04-24 06:28] LABS: Basophils # (Auto) 0.1 K/mm3 (0.0-0.1); Basophils % (Auto) 0.4 % (0.0-1.8); Eosinophils % (Auto) 0.2 % (0.0-4.3); Lymphocytes # (Auto) 1.6 K/mm3 (1.2-5.4); Lymphocytes % (Auto) 13.3 % (13.4-35.0); Mean Corpuscular HGB Conc 30 % (32-34); Mean Corpuscular Volume 87 fl (84-94); Monocytes # (Auto) 1.3 K/mm3 (0.0-0.8); Monocytes % (Auto) 10.9 % (0.0-7.3); Platelet Count 357 K/mm3 (140-440); Red Blood Count 5.85 M/mm3 (3.65-5.03); Red Cell Distribution Width 13.9 % (13.2-15.2)
[2021-04-24 06:33] LABS: Hematocrit 50.7 % (35.5-45.6); Hemoglobin 15.3 gm/dl (11.8-15.2)
[2021-04-24 06:45] LABS: BUN/Creatinine Ratio 12; Blood Urea Nitrogen 15 mg/dL (9-20); Calcium 9.6 mg/dL (8.4-10.2); Hemolysis Index 5
--- NOTE | 2021-04-24 11:37 | Progress Note ---
Assessment and Plan Patient is 61-year-old male past medical history of CVH with LHP, nicotine dependence, EtOH dependence who presented to the ED with a complaint of left- sided weakness and difficulty speaking x 2days CVA Afib w/RVR(new onset) Etoh abuse Echo 04/20/2021-EF 45 to 50%, left ventricular systolic function is borderline. There is hypokinesis of basal inferior septal wall. Hypokinesis inferior wall. Right ventricle systolic function is normal. Bubble study did not demonstrate PFO. Plan: Patient has converted to sinus rhythm we will stop amiodarone drip and convert to amiodarone 200 mg p.o. twice daily continue metoprolol 50 mg p.o. twice daily Patient will need to be started on anticoagulation with Eliquis however but per neuro recommendations will hold Eliquis for 5 to 7 days. Continue aspirin and Lipitor Due to patient mental status and poor nutrition patient will require PEG placement however there is no next of kin as patient's has recently passed and children and do not want to be involved with patient Obtained 2 physician consent for PEG placement Patient seen in conjunction with Dr. Avelar who agrees with this plan of care - Patient Problems (1) Alcohol dependence Current Visit: Yes Status: Acute (2) Atrial fibrillation with RVR Current Visit: Yes Status: Acute (3) CVA (cerebral vascular accident) Current Visit: Yes Status: Acute (4) Elevated blood pressure reading Current Visit: Yes Status: Acute (5) Nicotine dependence Current Visit: Yes Status: Acute Qualifiers: Nicotine product type: cigarettes Substance use status: in withdrawal Qualified Code(s): F17.213 - Nicotine dependence, cigarettes, with withdrawal (6) Stroke Current Visit: Yes Status: Acute Subjective Date of service: 04/24/21 Principal diagnosis: CVA Interval history: Patient patient remains altered and is still restrained. No acute distress Patient has converted to sinus rhythm 77 on monitor with episodes of NSVT Objective Vital Signs Temp Pulse Resp BP BP Pulse Ox 04/24/21 08:13 99.0 F 84 18 175/98 93 04/24/21 04:16 91 H 100 04/24/21 00:00 99 F 115 H 19 152/80 98 04/23/21 20:41 98.4 F 70 18 152/93 95 04/23/21 16:25 97.9 F 85 18 178/92 99 04/23/21 12:00 96 - Physical Examination General: No Apparent Distress, Other HEENT: Positive: Normocephaly Neck: Positive: trachea midline Cardiac: Positive: Reg Rate and Rhythm Lungs: Positive: Normal Breath Sounds Neuro: Positive: Grossly Intact Abdomen: Positive: Soft Skin: Negative: Rash, Suspicious Lesions, Ulceration Extremities: Present: upper extr. pulses. Absent: edema - Labs and Meds CBC 04/24/21 Range/Units 04:50 WBC 11.7 H (4.5-11.0) K/mm3 RBC 5.85 H (3.65-5.03) M/mm3 Hgb 15.3 H (11.8-15.2) gm/dl Hct 50.7 H (35.5-45.6) % Plt Count 357 (140-440) K/mm3 Lymph # (Auto) 1.6 (1.2-5.4) K/mm3 [place] # (Auto) 1.3 H (0.0-0.8) K/mm3 Eos # (Auto) 0.0 (0.0-0.4) K/mm3 Baso # (Auto) 0.1 (0.0-0.1) K/mm3 Comprehensive Metabolic Panel 04/24/21 Range/Units 04:50 Sodium 148 H (137-145) mmol/L Potassium 3.3 L (3.6-5.0) mmol/L Chloride 108.9 H (98-107) mmol/L Carbon Dioxide 22 (22-30) mmol/L BUN 15 (9-20) mg/dL Creatinine 1.3 (0.8-1.3) mg/dL Glucose 160 H (75-100) mg/dL Calcium 9.6 (8.4-10.2) mg/dL - Imaging and Cardiology EKG: report reviewed, image reviewed Echo: report reviewed - Telemetry EKG Rhythm: Sinus Rhythm - EKG Sinus rhythms and dysrhythmias: sinus rhythm
[2021-04-24] MEDS: LORazepam 2 MG/ML VIAL IV PRN (12:33)
[2021-04-24] MEDS: ASPIRIN 325 MG TAB PO SCH (12:36)
[2021-04-24] MEDS: oxyCODONE /ACETAMINOPHEN 5-325MG TAB PO PRN (12:37)
[2021-04-24] MEDS: FOLIC ACID 1 MG TAB PO SCH (12:37)
[2021-04-24] MEDS: AMIODARONE 200 MG TAB PO SCH ×2 (12:50→21:52)
--- NOTE | 2021-04-24 13:32 | Electrocardiograph Report ---
[facility] Test Date: 2021-04-20 Test Time: 16:21:41 Pat Name: CALEB JACKSON Department: Room: A465 Gender: M Graphic Design Manager: anastacia : 1960 Requested By: DENNY ZHENG Order Number: [id number] Reading MD: Jojo Dominguez Measurements Intervals [place] Rate: 120 P: MA: QRS: 27 QRSD: 107 T: 76 QT: 352 QTc: 504 Interpretive Statements Very poor quality ECG Atrial fibrillation LVH with secondary repolarization abnormality No previous ECG available for comparison Electronically Signed On 04-24-2021 13:32:05 EST by Jojo Dominguez
--- NOTE | 2021-04-24 17:33 | Progress Note ---
Assessment and Plan Assessment and plan: #Acute CVA Continue permissive hypertension per neurology Continue aspirin 325 mg daily Lipitor 40 mg daily. Holding on anticoagulation until after PEG placement. Neurology consulted; appreciate recs TTE revealing EF 45-50% with hypokinesis of the basal inferior septal wall, hypokinesis of the inferior wall. No PFO was detected. Physical therapy/Occupational Therapy recommended subacute rehab Continue to monitor #Atrial fibrillation with RVR (new onset) Cardiology consulted; appreciate recs Cardiology recommending anticoagulation; however, Eliquis 5 mg twice daily will not be started until 5-7 days out from CVAwe will hold off until after PEG tube placement. Continue metoprolol tartrate 50 mg twice daily for rate control. Transitioning from amiodarone to p.o. amiodarone 200 mg twice daily. #Dysphagia Patient is unable to have p.o. intake due to concerns for high aspiration risk. Currently on NG tube with tube feeds. Ultimate plan is PEG tube placement by GI. GI consulted; pending recs. Patient's daughter (Soniya Mabry at [phone]) agrees significant for PEG tube placement. Discussed with daughter at length about overall goals of care. #Advanced care planning -Disease education conducted, care plan discussed, diagnoses discussed, prognosis discussed, and patient acknowledges understanding with care plan -Time: +60 min #Discharge planning - Patient is pending subacute rehab placement - Case management has been made aware. #Social -Case management was able to locate the patient's daughter (Soniya Mabry at [phone]). Physician had discussion at length about the current hospital stay and overall long-term prognosis. Patient's family primarily lives in [place]. Patient no longer has family that lives in the state of [place]. His close friend (since childhoodMark) is the closest "family" that he has with conditions. Daughter will be speaking to the rest the family about his overall housing situation. Patient is unable to stay with his daughter due to limited physical space in the home (approximately 650 square feet). Disposition Plan: Continue medical management Total Time Spent with Patient (Minutes): 60 minutes History Interval history: No acute events overnight. Hospitalist Physical - Constitutional Vitals: Temp Pulse Resp BP Pulse Ox 98.7 F 64 18 156/93 97 04/24/21 15:57 04/24/21 15:57 04/24/21 15:57 04/24/21 15:57 04/24/21 15:57 General appearance: Present: no acute distress, well-nourished - EENT Eyes: Present: PERRL, EOM intact ENT: hearing intact, clear oral mucosa, other (NG tube in place) - Neck Neck: Present: supple, normal ROM - Respiratory Respiratory effort: normal Respiratory: bilateral: CTA - Cardiovascular Rhythm: regular Heart Sounds: Present: S1 & S2 - Extremities Extremities: no ischemia, pulses intact, pulses symmetrical, No edema, normal temperature, normal color Peripheral Pulses: within normal limits - Abdominal General gastrointestinal: soft, non-tender, non-distended, normal bowel sounds - Integumentary Integumentary: Present: clear, warm, dry - Psychiatric Psychiatric: other (Unable to assess given neurological status) - Neurologic Neurologic: other (Unable to assess given neurologic status) - Allied Health Allied health notes reviewed: nursing HEART Score - HEART Score Troponin: Troponin T 0.011 ng/mL (0.00-0.029) 04/20/21 17:44 Results - Labs CBC & Chem 7: 04/24/21 04:50 04/24/21 04:50 Labs: Laboratory Last Values WBC 11.7 K/mm3 (4.5-11.0) H 04/24/21 04:50 RBC 5.85 M/mm3 (3.65-5.03) H 04/24/21 04:50 Hgb 15.3 gm/dl (11.8-15.2) H 04/24/21 04:50 Hct 50.7 % (35.5-45.6) H 04/24/21 04:50 MCV 87 fl (84-94) 04/24/21 04:50 MCH 26 pg (28-32) L 04/24/21 04:50 MCHC 30 % (32-34) L 04/24/21 04:50 RDW 13.9 % (13.2-15.2) 04/24/21 04:50 Plt Count 357 K/mm3 (140-440) 04/24/21 04:50 Lymph % (Auto) 13.3 % (13.4-35.0) L 04/24/21 04:50 [place] % (Auto) 10.9 % (0.0-7.3) H 04/24/21 04:50 Eos % (Auto) 0.2 % (0.0-4.3) 04/24/21 04:50 Baso % (Auto) 0.4 % (0.0-1.8) 04/24/21 04:50 Lymph # (Auto) 1.6 K/mm3 (1.2-5.4) 04/24/21 04:50 [place] # (Auto) 1.3 K/mm3 (0.0-0.8) H 04/24/21 04:50 Eos # (Auto) 0.0 K/mm3 (0.0-0.4) 04/24/21 04:50 Baso # (Auto) 0.1 K/mm3 (0.0-0.1) 04/24/21 04:50 Seg Neutrophils % 75.2 % (40.0-70.0) H 04/24/21 04:50 Seg Neutrophils # 8.7 K/mm3 (1.8-7.7) H 04/24/21 04:50 PT 13.9 Sec. (12.2-14.9) 04/20/21 20:41 INR 0.96 (0.87-1.13) 04/20/21 20:41 APTT 28.0 Sec. (24.2-36.6) 04/20/21 20:41 Thrombin Time 16.2 Sec. (15.1-19.6) 04/20/21 17:44 Sodium 148 mmol/L (137-145) H 04/24/21 04:50 Potassium 3.3 mmol/L (3.6-5.0) L 04/24/21 04:50 Chloride 108.9 mmol/L (98-107) H 04/24/21 04:50 Carbon Dioxide 22 mmol/L (22-30) 04/24/21 04:50 Anion Gap 20 mmol/L 04/24/21 04:50 BUN 15 mg/dL (9-20) 04/24/21 04:50 Creatinine 1.3 mg/dL (0.8-1.3) 04/24/21 04:50 Estimated GFR > 60 ml/min 04/24/21 04:50 BUN/Creatinine Ratio 12 % 04/24/21 04:50 Glucose 160 mg/dL (75-100) H 04/24/21 04:50 POC Glucose 169 mg/dL (70-105) H 04/24/21 16:10 Calcium 9.6 mg/dL (8.4-10.2) 04/24/21 04:50 Magnesium 1.90 mg/dL (1.7-2.3) 04/20/21 17:44 Total Bilirubin 0.40 mg/dL (0.1-1.2) 04/20/21 17:44 AST 19 units/L (5-40) 04/20/21 17:44 ALT 35 units/L (7-56) 04/20/21 17:44 Alkaline Phosphatase 73 units/L (35-129) 04/20/21 17:44 Total Creatine Kinase 79 units/L (55-170) 04/20/21 17:44 Total Creatine Kinase 81 units/L (55-170) 04/20/21 17:44 CK-MB (CK-2) 2.1 ng/mL (0.0-4.0) 04/20/21 17:44 CK-MB (CK-2) Rel Index 2.6 (0-4) 04/20/21 17:44 Troponin T 0.011 ng/mL (0.00-0.029) 04/20/21 17:44 Total Protein 7.0 g/dL (6.3-8.2) 04/20/21 17:44 Albumin 4.1 g/dL (3.9-5) 04/20/21 17:44 Albumin/Globulin Ratio 1.4 % 04/20/21 17:44 TSH 1.040 mlU/mL (0.270-4.200) 04/20/21 19:42 Free T4 1.16 ng/dL (0.76-1.46) 04/20/21 19:42 Urine Color Yellow (Yellow) 04/20/21 18:19 Urine Turbidity Clear (Clear) 04/20/21 18:19 Urine pH 7.0 (5.0-7.0) 04/20/21 18:19 Ur Specific [place] 1.010 (1.003-1.030) 04/20/21 18:19 Urine Protein 100 mg/dl mg/dL (Negative) 04/20/21 18:19 Urine Glucose (UA) 50 mg/dL (Negative) 04/20/21 18:19 Urine Ketones 20 mg/dL (Negative) 04/20/21 18:19 Urine Blood Sm (Negative) 04/20/21 18:19 Urine Nitrite Neg (Negative) 04/20/21 18:19 Urine Bilirubin Neg (Negative) 04/20/21 18:19 Urine Urobilinogen < 2.0 mg/dL (<2.0) 04/20/21 18:19 Ur Leukocyte Esterase Neg (Negative) 04/20/21 18:19 Urine WBC (Auto) 1.0 /HPF (0.0-6.0) 04/20/21 18:19 Urine RBC (Auto) 3.0 /HPF (0.0-6.0) 04/20/21 18:19 U Epithel Cells (Auto) < 1.0 /HPF (0-13.0) 04/20/21 18:19 Hyaline Casts 5 /LPF 04/20/21 18:19 Urine Mucus Few /HPF 04/20/21 18:19 Plasma/Serum Alcohol < 0.01 % (0-0.07) 04/20/21 17:44 Bravo/IV: Voiding Method Condom Catheter Active Medications - Current Medications Current Medications: Generic Name Dose Route Start Last Admin Trade Name Freq PRN Reason Stop Dose Admin Acetaminophen 650 mg 04/20/21 18:41 Acetaminophen 325 Mg Tab PO Q4H PRN Pain, Mild (1-3) Albuterol 2.5 mg 04/20/21 18:41 Albuterol 2.5 Mg/3 Ml Nebu IH Q3HRT PRN Shortness Of Breath Amiodarone HCl 200 mg 04/24/21 11:00 04/24/21 12:50 Amiodarone 200 Mg Tab PO 200 mg BID NAMAN Administration Lipase/Protease/Amylase 1 each 04/23/21 11:30 Lipase 10,500/Protease 25,000/Amylase 43,750 (Units) Dr Willingham FEEDTUBE PRN PRN For Clogged Feeding Tube Aspirin 325 mg 04/21/21 10:00 04/24/21 12:36 Aspirin 325 Mg Tab PO 325 mg QDAY NAMAN Administration Atorvastatin Calcium 40 mg 04/20/21 22:00 04/24/21 00:44 Atorvastatin 40 Mg Tab PO 40 mg QHS NAMAN Administration Bisacodyl 10 mg 04/20/21 18:41 Bisacodyl 10 Mg Rect Supp [place] QDAY PRN Constipation Cyclobenzaprine HCl 10 mg 04/20/21 19:00 04/24/21 12:36 Cyclobenzaprine 10 Mg Tab PO 10 mg TID PRN Administration Muscle Spasm Folic Acid 1 mg 04/20/21 18:59 04/24/21 12:37 Folic Acid 1 Mg Tab PO 1 mg QDAY NAMAN Administration Hydromorphone HCl 0.5 mg 04/20/21 18:41 04/22/21 16:30 Hydromorphone 1 Mg/1 Ml Inj IV 0.5 mg Q6H PRN Administration Pain , Severe (7-10) Lorazepam 2 mg 04/20/21 18:44 04/24/21 12:33 Lorazepam 2 Mg/Ml Vial IV 2 mg Q1HR PRN Administration CIWA-Ar 8-15 Magnesium Hydroxide 30 ml 04/20/21 18:41 Magnesium Hydroxide (Mom) Oral Liqd Udc PO Q4H PRN Constipation Metoclopramide HCl 10 mg 04/20/21 18:41 Metoclopramide 10 Mg Tab PO Q6H PRN Nausea And Vomiting Metoprolol Tartrate 50 mg 04/21/21 13:00 04/24/21 12:36 Metoprolol Tartrate 50 Mg Tab PO 50 mg BID NAMAN Administration Ondansetron HCl 4 mg 04/20/21 18:41 Ondansetron 4 Mg/2 Ml Inj IV Q8H PRN Nausea And Vomiting Oxycodone/Acetaminophen 1 tab 04/20/21 18:41 04/24/21 12:37 Oxycodone /Acetaminophen 5-325mg Tab PO 1 tab Q12H PRN Administration Pain, Moderate (4-6) Promethazine HCl 25 mg 04/20/21 18:41 Promethazine 25 Mg Rect Supp [place] Q6H PRN Nausea And Vomiting Simple Syrup 15 ml 04/23/21 11:30 Simple Syrup 15 Ml FEEDTUBE PRN PRN Hypoglycemia Simple Syrup 30 ml 04/23/21 11:30 Simple Syrup 15 Ml FEEDTUBE PRN PRN Hypoglycemia Sodium Bicarbonate 325 mg 04/23/21 11:30 Sodium Bicarbonate 325 Mg Tab FEEDTUBE PRN PRN For Clogged Feeding Tube Sodium Chloride 10 ml 04/20/21 18:41 Sodium Chloride 0.9% 10 Ml Flush Syringe IV PRN PRN LINE FLUSH Nutrition/Malnutrition Assess - Dietary Evaluation Nutrition/Malnutrition Findings: Nutrition Notes Start: 04/23/21 12:36 Freq: Status: Active Protocol: Document 04/23/21 12:36 ANNIKA (Rec: 04/23/21 13:25 ANNIKA [id number]) Nutrition Notes Need for Assessment generated from: MD Order Initial or Follow up Assessment Current Diagnosis Hypertension,Stroke Other Pertinent Diagnosis Atrial Fibrilation w/RVR, EtOH & Tobacco dependence. Current Diet TF-Jevity 1.2 Maurice @ 68 ml/hr ( since D 04/23). Labs/Tests 04/23: [place] 146, K 3.5, CO2 19, Glu 144. Pertinent Medications 04/23: Nutritionally unremarkable. Height 6 ft 3 in Weight 91.3 kg [place] Body Weight (kg) 89.09 BMI 25.1 Intake Prior to Admission Good Weight change and time frame Pt states not having loss body weight [employer]. Weight Status Overweight Subjective/Other Information RD consult for write/ manage TF. 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 Pt lethargic and hard to arousal and follow commands . Pt awaiting for subacute rehab placement. Percent of energy/protein needs met: Prescribed Jevity 1.2 Maurice @ 68 ml/hr provides for energy/ protein needs (1,804 Kcal/77 g ) during LOS, 91% Kcal; 100% AA. Burn Absent Trauma Absent GI Symptoms None Food Allergy No Skin Integrity/Comment Clear, warm, dry. Minimum of two criteria No #1 Nutrition Diagnosis Inadequate oral intake Etiology Failed PRINT ROOM WORKER evaluation As Evidenced by Signs and Symptoms Pt is on NPO at the time. Is patient on ventilator? No Is Patient Ambulatory and/or Out of Bed No REE-([facility]-confined to bed) [phone] Calculation Used for Recommendations [facility] Additional Notes Protein: 0.8-1 g/Kg; 73-91 g/ day. Fluids: 1 ml/Kcal, or as per MD. Nutrition Intervention Nutrition Support: Start Jevity 1.2 Maurice @ 68 ml/ hr. Flush: 150 ml water Q 4 hr, or as per MD. Kcal 1,960 Protein (gm) 91 Carbohydrates (gm) 277 Fat (gm) 64 Fluid (mL) 1,318 Fiber (gm) 29 % RDI: 91% Kcal; 100% AA. Goal #1 Provide at least 75% of energy /protein needs through Enteral Feeding during LOS. Goal #2 Maintain body weight within +/ -3% of admission body weight during LOS. Follow-Up By: 04/25/21 Additional Comments Continue monitoring TF tolerance and BM.
--- NOTE | 2021-04-24 20:03 | Gastroenterology Consultation ---
History of Present Illness - Reason for Consult Consult date: 04/24/21 PEG tube placement Requesting physician: JOHN MARQUEZ - History of Present Illness This is a 61 yo male admitted for acute CVA, afib with RVR (new onset), and CHF. GI consulted for PEG tube placement. Patient has been on tube feeds for risk for aspiration. Tolerating tube feeds. Medication list reviewed. Past History Past Medical History: other (See HPI) Past Surgical History: appendectomy Social history: smoking, alcohol abuse Family history: hypertension Medications and Allergies Allergies Allergy/AdvReac Type Severity Reaction Status Date / Time No Known Allergies Allergy Verified 08/24/20 14:13 Home Medications Medication Instructions Recorded Confirmed Last Taken Type Cyclobenzaprine [Flexeril 10mg] 10 mg PO TID PRN #20 tablet 01/26/14 Unknown Rx HYDROcodone/APAP 5-325 [[place] 1 each PO Q6HR PRN #20 tablet 01/26/14 Unknown Rx 5/325] Naproxen [Naprosyn TAB] 500 mg PO BID #30 tablet 01/26/14 Unknown Rx Clindamycin [Clindamycin CAP] 300 mg PO Q8H 7 Days #21 cap 08/24/20 Unknown Rx Ibuprofen [Motrin] 800 mg PO Q8HR PRN #21 tablet 08/24/20 Unknown Rx Active Meds: Active Medications Acetaminophen (Acetaminophen 325 Mg Tab) 650 mg PO Q4H PRN PRN Reason: Pain, Mild (1-3) Albuterol (Albuterol 2.5 Mg/3 Ml Nebu) 2.5 mg IH Q3HRT PRN PRN Reason: Shortness Of Breath Amiodarone HCl (Amiodarone 200 Mg Tab) 200 mg PO BID [facility] Last Admin: 04/24/21 12:50 Dose: 200 mg Lipase/Protease/Amylase (Lipase 10,500/Protease 25,000/Amylase 43,750 (Units) Dr Willingham) 1 each FEEDTUBE PRN PRN PRN Reason: For Clogged Feeding Tube Aspirin (Aspirin 325 Mg Tab) 325 mg PO QDAY [facility] Last Admin: 04/24/21 12:36 Dose: 325 mg Atorvastatin Calcium (Atorvastatin 40 Mg Tab) 40 mg PO QHS [facility] Last Admin: 04/24/21 00:44 Dose: 40 mg Bisacodyl (Bisacodyl 10 Mg Rect Supp) 10 mg [place] QDAY PRN PRN Reason: Constipation Cyclobenzaprine HCl (Cyclobenzaprine 10 Mg Tab) 10 mg PO TID PRN PRN Reason: Muscle Spasm Last Admin: 04/24/21 12:36 Dose: 10 mg Folic Acid (Folic Acid 1 Mg Tab) 1 mg PO QDAY [facility] Last Admin: 04/24/21 12:37 Dose: 1 mg Hydromorphone HCl (Hydromorphone 1 Mg/1 Ml Inj) 0.5 mg IV Q6H PRN PRN Reason: Pain , Severe (7-10) Last Admin: 04/22/21 16:30 Dose: 0.5 mg Lorazepam (Lorazepam 2 Mg/Ml Vial) 2 mg IV Q1HR PRN PRN Reason: CIWA-Ar 8-15 Last Admin: 04/24/21 12:33 Dose: 2 mg Magnesium Hydroxide (Magnesium Hydroxide (Mom) Oral Liqd Udc) 30 ml PO Q4H PRN PRN Reason: Constipation Metoclopramide HCl (Metoclopramide 10 Mg Tab) 10 mg PO Q6H PRN PRN Reason: Nausea And Vomiting Metoprolol Tartrate (Metoprolol Tartrate 50 Mg Tab) 50 mg PO BID [facility] Last Admin: 04/24/21 12:36 Dose: 50 mg Ondansetron HCl (Ondansetron 4 Mg/2 Ml Inj) 4 mg IV Q8H PRN PRN Reason: Nausea And Vomiting Oxycodone/Acetaminophen (Oxycodone /Acetaminophen 5-325mg Tab) 1 tab PO Q12H PRN PRN Reason: Pain, Moderate (4-6) Last Admin: 04/24/21 12:37 Dose: 1 tab Promethazine HCl (Promethazine 25 Mg Rect Supp) 25 mg [place] Q6H PRN PRN Reason: Nausea And Vomiting Simple Syrup (Simple Syrup 15 Ml) 15 ml FEEDTUBE PRN PRN PRN Reason: Hypoglycemia Simple Syrup (Simple Syrup 15 Ml) 30 ml FEEDTUBE PRN PRN PRN Reason: Hypoglycemia Sodium Bicarbonate (Sodium Bicarbonate 325 Mg Tab) 325 mg FEEDTUBE PRN PRN PRN Reason: For Clogged Feeding Tube Sodium Chloride (Sodium Chloride 0.9% 10 Ml Flush Syringe) 10 ml IV PRN PRN PRN Reason: LINE FLUSH Review of Systems - Review of Systems ROS unobtainable: due to mental status Exam - Constitutional Vital Signs: Temp Pulse Resp BP Pulse Ox 98.7 F 71 18 156/93 97 04/24/21 15:57 04/24/21 16:00 04/24/21 15:57 04/24/21 15:57 04/24/21 15:57 General appearance: no acute distress - EENT Eyes: EOM intact - Neck Neck: supple - Respiratory Respiratory effort: normal - Cardiovascular Rhythm: regular Heart Sounds: Present: S1 & S2 Extremities: No edema - Gastrointestinal General gastrointestinal: Present: soft, non-tender, non-distended - Integumentary Integumentary: Present: clear, warm - Musculoskeletal Musculoskeletal: normal - Neurologic Neurological: disoriented - Allied health notes Allied health notes reviewed: nursing - Labs CBC & Chem 7: 04/24/21 04:50 04/24/21 04:50 Lab Results: Laboratory Results - last 24 hr 04/24/21 04/24/21 04/24/21 04:50 04:50 12:17 WBC 11.7 H RBC 5.85 H Hgb 15.3 H Hct 50.7 H MCV 87 MCH 26 L MCHC 30 L RDW 13.9 Plt Count 357 Lymph % (Auto) 13.3 L [place] % (Auto) 10.9 H Eos % (Auto) 0.2 Baso % (Auto) 0.4 Lymph # (Auto) 1.6 [place] # (Auto) 1.3 H Eos # (Auto) 0.0 Baso # (Auto) 0.1 Seg Neutrophils % 75.2 H Seg Neutrophils # 8.7 H Sodium 148 H Potassium 3.3 L Chloride 108.9 H Carbon Dioxide 22 Anion Gap 20 BUN 15 Creatinine 1.3 Estimated GFR > 60 BUN/Creatinine Ratio 12 Glucose 160 H POC Glucose 149 H Calcium 9.6 04/24/21 16:10 WBC RBC Hgb Hct MCV MCH MCHC RDW Plt Count Lymph % (Auto) [place] % (Auto) Eos % (Auto) Baso % (Auto) Lymph # (Auto) [place] # (Auto) Eos # (Auto) Baso # (Auto) Seg Neutrophils % Seg Neutrophils # Sodium Potassium Chloride Carbon Dioxide Anion Gap BUN Creatinine Estimated GFR BUN/Creatinine Ratio Glucose POC Glucose 169 H Calcium Assessment and Plan # Neurogenic dysphagia - s/p CVA - aspiration risk per speech evaluation - currently with NG tube for tube feeding. Rec - will plan for EGD/PEG tomorrow after discuss with family patient's daughter (Zeke díaz Raghavendra at [phone]) - keep NPO MN - check INR AM - ensure electrolytes are wnl. - Patient Problems (1) CVA (cerebral vascular accident) Current Visit: Yes Status: Acute
[2021-04-24] MEDS: dilTIAZem 30 MG TAB PO SCH ×2 (22:26→22:27)
[2021-04-24] MEDS: methylPREDNISolone Sod Succinate 40 MG/1 ML INJ IV SCH (22:27)
[2021-04-25 06:27] LABS: BUN/Creatinine Ratio 12; Blood Urea Nitrogen 15 mg/dL (9-20); Hemolysis Index 5
[2021-04-25 06:32] LABS: INR 1.05 (0.87-1.13)
[2021-04-25] MEDS: METOPROLOL TARTRATE 50 MG TAB PO SCH ×4 (09:38→22:43)
[2021-04-25] MEDS: AMIODARONE 200 MG TAB PO SCH ×2 (09:38→22:45)
[2021-04-25] MEDS: ASPIRIN 325 MG TAB PO SCH (09:38)
[2021-04-25] MEDS: FOLIC ACID 1 MG TAB PO SCH (09:39)
[2021-04-25] MEDS: DEXTROSE 5% IN WATER 1,000 ML IV SCH ×2 (10:31→19:03)
--- NOTE | 2021-04-25 10:34 | Progress Note ---
Assessment and Plan Patient is 61-year-old male past medical history of CVH with LHP, nicotine dependence, EtOH dependence who presented to the ED with a complaint of left- sided weakness and difficulty speaking x 2days CVA Afib w/RVR(new onset) Etoh abuse Echo 04/20/2021-EF 45 to 50%, left ventricular systolic function is borderline. There is hypokinesis of basal inferior septal wall. Hypokinesis inferior wall. Right ventricle systolic function is normal. Bubble study did not demonstrate PFO. Plan: Continue amiodarone 200 mg p.o. twice daily Patient still having frequent bouts of NSVT will increase to metoprolol 50 mg p.o. TID Continue aspirin and Lipitor Per documentation and discussion with staff patient's daughter has been reached and and daughter has consented for PEG placement Patient for PEG placement today Per neuro recs patient should be able to start anticoagulation today however patient going for PEG placement Recommend resuming anticoagulation with Eliquis once cleared by GI postprocedure Patient seen in conjunction with Dr. Avelar who agrees with this plan of care - Patient Problems (1) Alcohol dependence Current Visit: Yes Status: Acute (2) Atrial fibrillation with RVR Current Visit: Yes Status: Acute (3) CVA (cerebral vascular accident) Current Visit: Yes Status: Acute (4) Elevated blood pressure reading Current Visit: Yes Status: Acute (5) Nicotine dependence Current Visit: Yes Status: Acute Qualifiers: Nicotine product type: cigarettes Substance use status: in withdrawal Qualified Code(s): F17.213 - Nicotine dependence, cigarettes, with withdrawal (6) Stroke Current Visit: Yes Status: Acute Subjective Date of service: 04/25/21 Principal diagnosis: CVA Interval history: Patient patient remains altered and is still restrained. No acute distress Patient sinus rhythm 83 on monitor with episodes of NSVT Objective Vital Signs Temp Pulse Resp BP BP Pulse Ox 04/25/21 08:34 98.3 F 18 173/97 04/25/21 03:29 91 H 97 04/25/21 03:00 98.3 F 95 H 126/87 97 04/25/21 00:00 98 04/24/21 23:57 100.9 F H 67 19 145/80 99 04/24/21 16:00 71 04/24/21 15:57 98.7 F 64 18 156/93 97 04/24/21 12:37 100 04/24/21 12:36 78 04/24/21 12:21 98.2 F 56 L 22 190/94 100 04/24/21 12:20 98.2 F 93 H 20 222/121 100 04/24/21 12:00 98 - Physical Examination General: No Apparent Distress, Other HEENT: Positive: Normocephaly Neck: Positive: trachea midline Cardiac: Positive: Reg Rate and Rhythm Lungs: Positive: Normal Breath Sounds Neuro: Positive: Grossly Intact Abdomen: Positive: Soft Skin: Negative: Rash, Suspicious Lesions, Ulceration Extremities: Present: upper extr. pulses. Absent: edema - Labs and Meds Coagulation 04/25/21 Range/Units 05:05 PT 14.8 (12.2-14.9) Sec. INR 1.05 (0.87-1.13) Comprehensive Metabolic Panel 04/25/21 Range/Units 05:05 Sodium 150 H (137-145) mmol/L Potassium 3.9 (3.6-5.0) mmol/L Chloride 112.9 H (98-107) mmol/L Carbon Dioxide 23 (22-30) mmol/L BUN 15 (9-20) mg/dL Creatinine 1.3 (0.8-1.3) mg/dL Glucose 192 H (75-100) mg/dL Calcium 10.0 (8.4-10.2) mg/dL - Imaging and Cardiology EKG: report reviewed, image reviewed Echo: report reviewed - Telemetry EKG Rhythm: Sinus Rhythm - EKG Sinus rhythms and dysrhythmias: sinus rhythm
[2021-04-25] MEDS ORDERED: LIPASE 10,500/PROTEASE 25,000/AMYLASE 43,750 (UNITS) DR CAP FEEDTUBE PRN (15:16)
[2021-04-25] MEDS ORDERED: SIMPLE SYRUP 15 ML FEEDTUBE PRN ×2 (15:16)
[2021-04-25] MEDS ORDERED: SODIUM BICARBONATE 325 MG TAB FEEDTUBE PRN (15:16)
--- NOTE | 2021-04-25 15:21 | Progress Note ---
Assessment and Plan Assessment and plan: #Acute CVA Continue aspirin 325 mg daily Lipitor 40 mg daily. Holding on anticoagulation until after PEG placement. Neurology consulted; appreciate recs TTE revealing EF 45-50% with hypokinesis of the basal inferior septal wall, hypokinesis of the inferior wall. No PFO was detected. Physical therapy/Occupational Therapy recommended subacute rehab Continue to monitor #Atrial fibrillation with RVR (new onset) Cardiology consulted; appreciate recs Cardiology recommending anticoagulation; however, Eliquis 5 mg twice daily will not be started until 5-7 days out from CVAwe will hold off until after PEG tube placement. Continue metoprolol tartrate 50 mg 3 times daily for rate control. Continue p.o. amiodarone 200 mg twice daily. #Dysphagia Patient is unable to have p.o. intake due to concerns for high aspiration risk. Currently on NG tube with tube feeds. Ultimate plan is PEG tube placement by GI. GI consulted; appreciate recs. Planning PEG for 04/28/2021. Patient's daughter (Soniya Mabry at [phone]) agrees significant for PEG tube placement. Discussed with daughter at length about overall goals of care. #Advanced care planning -Disease education conducted, care plan discussed, diagnoses discussed, prognosis discussed, and patient acknowledges understanding with care plan -Time: +60 min #Discharge planning - Patient is pending subacute rehab placement - Case management has been made aware. #Social -Case management was able to locate the patient's daughter (Soniya Mabry at [phone]). Physician had discussion at length about the current hospital stay and overall long-term prognosis. Patient's family primarily lives in [place]. Patient no longer has family that lives in the state of [place]. His close friend (since childhoodMark) is the closest "family" that he has with conditions. Daughter will be speaking to the rest the family about his overall housing situation. Patient is unable to stay with his daughter due to limited physical space in the home (approximately 650 square feet). Disposition Plan: Continue medical management Total Time Spent with Patient (Minutes): 30 minutes History Interval history: No acute events overnight. Hospitalist Physical - Constitutional Vitals: Temp Pulse Resp BP Pulse Ox 98.3 F 86 20 173/97 98 04/25/21 08:34 04/25/21 12:00 04/25/21 12:00 04/25/21 08:34 04/25/21 12:00 General appearance: Present: no acute distress, well-nourished - EENT Eyes: Present: PERRL, EOM intact ENT: other (NG tube in place) - Neck Neck: Present: supple, normal ROM - Respiratory Respiratory effort: normal Respiratory: bilateral: diminished - Cardiovascular Rhythm: regular Heart Sounds: Present: S1 & S2 - Extremities Extremities: no ischemia, pulses intact, pulses symmetrical, No edema, normal temperature, normal color Peripheral Pulses: within normal limits - Abdominal General gastrointestinal: soft, non-tender, non-distended, normal bowel sounds - Integumentary Integumentary: Present: clear, warm, dry - Psychiatric Psychiatric: other (Unable to assess given neurological status) - Neurologic Neurologic: other (Unable to assess given neurological status) - Allied Health Allied health notes reviewed: nursing HEART Score - HEART Score Troponin: Troponin T 0.011 ng/mL (0.00-0.029) 04/20/21 17:44 Results - Labs CBC & Chem 7: 04/24/21 04:50 04/25/21 05:05 Labs: Laboratory Last Values WBC 11.7 K/mm3 (4.5-11.0) H 04/24/21 04:50 RBC 5.85 M/mm3 (3.65-5.03) H 04/24/21 04:50 Hgb 15.3 gm/dl (11.8-15.2) H 04/24/21 04:50 Hct 50.7 % (35.5-45.6) H 04/24/21 04:50 MCV 87 fl (84-94) 04/24/21 04:50 MCH 26 pg (28-32) L 04/24/21 04:50 MCHC 30 % (32-34) L 04/24/21 04:50 RDW 13.9 % (13.2-15.2) 04/24/21 04:50 Plt Count 357 K/mm3 (140-440) 04/24/21 04:50 Lymph % (Auto) 13.3 % (13.4-35.0) L 04/24/21 04:50 [place] % (Auto) 10.9 % (0.0-7.3) H 04/24/21 04:50 Eos % (Auto) 0.2 % (0.0-4.3) 04/24/21 04:50 Baso % (Auto) 0.4 % (0.0-1.8) 04/24/21 04:50 Lymph # (Auto) 1.6 K/mm3 (1.2-5.4) 04/24/21 04:50 [place] # (Auto) 1.3 K/mm3 (0.0-0.8) H 04/24/21 04:50 Eos # (Auto) 0.0 K/mm3 (0.0-0.4) 04/24/21 04:50 Baso # (Auto) 0.1 K/mm3 (0.0-0.1) 04/24/21 04:50 Seg Neutrophils % 75.2 % (40.0-70.0) H 04/24/21 04:50 Seg Neutrophils # 8.7 K/mm3 (1.8-7.7) H 04/24/21 04:50 PT 14.8 Sec. (12.2-14.9) 04/25/21 05:05 INR 1.05 (0.87-1.13) 04/25/21 05:05 APTT 28.0 Sec. (24.2-36.6) 04/20/21 20:41 Thrombin Time 16.2 Sec. (15.1-19.6) 04/20/21 17:44 Sodium 150 mmol/L (137-145) H 04/25/21 05:05 Potassium 3.9 mmol/L (3.6-5.0) 04/25/21 05:05 Chloride 112.9 mmol/L (98-107) H 04/25/21 05:05 Carbon Dioxide 23 mmol/L (22-30) 04/25/21 05:05 Anion Gap 18 mmol/L 04/25/21 05:05 BUN 15 mg/dL (9-20) 04/25/21 05:05 Creatinine 1.3 mg/dL (0.8-1.3) 04/25/21 05:05 Estimated GFR > 60 ml/min 04/25/21 05:05 BUN/Creatinine Ratio 12 % 04/25/21 05:05 Glucose 192 mg/dL (75-100) H 04/25/21 05:05 POC Glucose 229 mg/dL (70-105) H 04/25/21 11:50 Calcium 10.0 mg/dL (8.4-10.2) 04/25/21 05:05 Magnesium 1.90 mg/dL (1.7-2.3) 04/20/21 17:44 Total Bilirubin 0.40 mg/dL (0.1-1.2) 04/20/21 17:44 AST 19 units/L (5-40) 04/20/21 17:44 ALT 35 units/L (7-56) 04/20/21 17:44 Alkaline Phosphatase 73 units/L (35-129) 04/20/21 17:44 Total Creatine Kinase 79 units/L (55-170) 04/20/21 17:44 Total Creatine Kinase 81 units/L (55-170) 04/20/21 17:44 CK-MB (CK-2) 2.1 ng/mL (0.0-4.0) 04/20/21 17:44 CK-MB (CK-2) Rel Index 2.6 (0-4) 04/20/21 17:44 Troponin T 0.011 ng/mL (0.00-0.029) 04/20/21 17:44 Total Protein 7.0 g/dL (6.3-8.2) 04/20/21 17:44 Albumin 4.1 g/dL (3.9-5) 04/20/21 17:44 Albumin/Globulin Ratio 1.4 % 04/20/21 17:44 TSH 1.040 mlU/mL (0.270-4.200) 04/20/21 19:42 Free T4 1.16 ng/dL (0.76-1.46) 04/20/21 19:42 Urine Color Yellow (Yellow) 04/20/21 18:19 Urine Turbidity Clear (Clear) 04/20/21 18:19 Urine pH 7.0 (5.0-7.0) 04/20/21 18:19 Ur Specific [place] 1.010 (1.003-1.030) 04/20/21 18:19 Urine Protein 100 mg/dl mg/dL (Negative) 04/20/21 18:19 Urine Glucose (UA) 50 mg/dL (Negative) 04/20/21 18:19 Urine Ketones 20 mg/dL (Negative) 04/20/21 18:19 Urine Blood Sm (Negative) 04/20/21 18:19 Urine Nitrite Neg (Negative) 04/20/21 18:19 Urine Bilirubin Neg (Negative) 04/20/21 18:19 Urine Urobilinogen < 2.0 mg/dL (<2.0) 04/20/21 18:19 Ur Leukocyte Esterase Neg (Negative) 04/20/21 18:19 Urine WBC (Auto) 1.0 /HPF (0.0-6.0) 04/20/21 18:19 Urine RBC (Auto) 3.0 /HPF (0.0-6.0) 04/20/21 18:19 U Epithel Cells (Auto) < 1.0 /HPF (0-13.0) 04/20/21 18:19 Hyaline Casts 5 /LPF 04/20/21 18:19 Urine Mucus Few /HPF 04/20/21 18:19 Plasma/Serum Alcohol < 0.01 % (0-0.07) 04/20/21 17:44 Bravo/IV: Voiding Method Condom Catheter Active Medications - Current Medications Current Medications: Generic Name Dose Route Start Last Admin Trade Name Freq PRN Reason Stop Dose Admin Acetaminophen 650 mg 04/20/21 18:41 Acetaminophen 325 Mg Tab PO Q4H PRN Pain, Mild (1-3) Albuterol 2.5 mg 04/20/21 18:41 Albuterol 2.5 Mg/3 Ml Nebu IH Q3HRT PRN Shortness Of Breath Amiodarone HCl 200 mg 04/24/21 11:00 04/25/21 09:38 Amiodarone 200 Mg Tab PO 200 mg BID NAMAN Administration Lipase/Protease/Amylase 1 each 04/23/21 11:30 Lipase 10,500/Protease 25,000/Amylase 43,750 (Units) Dr Willingham FEEDTUBE PRN PRN For Clogged Feeding Tube Lipase/Protease/Amylase 1 each 04/25/21 15:16 Lipase 10,500/Protease 25,000/Amylase 43,750 (Units) Dr Willingham FEEDTUBE PRN PRN For Clogged Feeding Tube Aspirin 325 mg 04/21/21 10:00 04/25/21 09:38 Aspirin 325 Mg Tab PO 325 mg QDAY NAMAN Administration Atorvastatin Calcium 40 mg 04/20/21 22:00 04/24/21 21:52 Atorvastatin 40 Mg Tab PO 40 mg QHS NAMAN Administration Bisacodyl 10 mg 04/20/21 18:41 Bisacodyl 10 Mg Rect Supp [place] QDAY PRN Constipation Cyclobenzaprine HCl 10 mg 04/20/21 19:00 04/24/21 12:36 Cyclobenzaprine 10 Mg Tab PO 10 mg TID PRN Administration Muscle Spasm Folic Acid 1 mg 04/20/21 18:59 04/25/21 09:39 Folic Acid 1 Mg Tab PO 1 mg QDAY NAMAN Administration Hydromorphone HCl 0.5 mg 04/20/21 18:41 04/22/21 16:30 Hydromorphone 1 Mg/1 Ml Inj IV 0.5 mg Q6H PRN Administration Pain , Severe (7-10) Dextrose 1,000 mls @ 125 mls/hr 04/25/21 08:00 04/25/21 10:31 D5w IV 125 mls/hr DIRECT NAMAN Administration Lorazepam 2 mg 04/20/21 18:44 04/24/21 12:33 Lorazepam 2 Mg/Ml Vial IV 2 mg Q1HR PRN Administration CIWA-Ar 8-15 Magnesium Hydroxide 30 ml 04/20/21 18:41 Magnesium Hydroxide (Mom) Oral Liqd Udc PO Q4H PRN Constipation Metoclopramide HCl 10 mg 04/20/21 18:41 Metoclopramide 10 Mg Tab PO Q6H PRN Nausea And Vomiting Metoprolol Tartrate 50 mg 04/25/21 10:00 04/25/21 10:31 Metoprolol Tartrate 50 Mg Tab PO Not Given TID [facility] Ondansetron HCl 4 mg 04/20/21 18:41 Ondansetron 4 Mg/2 Ml Inj IV Q8H PRN Nausea And Vomiting Oxycodone/Acetaminophen 1 tab 04/20/21 18:41 04/24/21 12:37 Oxycodone /Acetaminophen 5-325mg Tab PO 1 tab Q12H PRN Administration Pain, Moderate (4-6) Promethazine HCl 25 mg 04/20/21 18:41 Promethazine 25 Mg Rect Supp [place] Q6H PRN Nausea And Vomiting Simple Syrup 15 ml 04/23/21 11:30 Simple Syrup 15 Ml FEEDTUBE PRN PRN Hypoglycemia Simple Syrup 30 ml 04/23/21 11:30 Simple Syrup 15 Ml FEEDTUBE PRN PRN Hypoglycemia Simple Syrup 15 ml 04/25/21 15:16 Simple Syrup 15 Ml FEEDTUBE PRN PRN Hypoglycemia Simple Syrup 30 ml 04/25/21 15:16 Simple Syrup 15 Ml FEEDTUBE PRN PRN Hypoglycemia Sodium Bicarbonate 325 mg 04/23/21 11:30 Sodium Bicarbonate 325 Mg Tab FEEDTUBE PRN PRN For Clogged Feeding Tube Sodium Bicarbonate 325 mg 04/25/21 15:16 Sodium Bicarbonate 325 Mg Tab FEEDTUBE PRN PRN For Clogged Feeding Tube Sodium Chloride 10 ml 04/20/21 18:41 Sodium Chloride 0.9% 10 Ml Flush Syringe IV PRN PRN LINE FLUSH Nutrition/Malnutrition Assess - Dietary Evaluation Nutrition/Malnutrition Findings: Nutrition Notes Start: 04/23/21 12:36 Freq: Status: Active Protocol: Document 04/25/21 14:25 ANNIKA (Rec: 04/25/21 14:35 ANNIKA [id number]) Nutrition Notes Initial or Follow up Brief Note Current Diet NPO (Since 04/25 00:20). Height 6 ft 3 in Weight 79.5 kg [place] Body Weight (kg) 89.09 BMI 21.9 Weight change and time frame Discrepancy of 11.8 Kg body weight loss in 2 days reported . Weight Status Appropriate Subjective/Other Information RD consult for routine F/U on [employer] evaluation and dietary advancement. ASSIST[employer] evaluation not performed due to Pt receiving TF at the time. Roll Coverer recommended PEG tube placement, will undergo tomorrow, after discussion with family. Pt to remain NPO. Percent of energy/protein needs met: Pt to remain NPO. Nutrition Intervention Follow-Up By: 04/28/21 Additional Comments When pertinent, continue monitoring TF tolerance and BM .
--- NOTE | 2021-04-25 15:53 | Event Note ---
Date: 04/25/21 Patient was scheduled for EGD/PEG today. It was cancelled as ran out of working hours. Will reschedule for Wednesday. Hold tube feeds at midnight on Wednesday. Discussed with hospitalist and nursing staff.
[2021-04-25] MEDS: LORazepam 2 MG/ML VIAL IV PRN (16:30)
[2021-04-26] MEDS: ACETAMINOPHEN 325 MG TAB PO PRN ×3 (03:27→21:31)
[2021-04-26] MEDS: oxyCODONE /ACETAMINOPHEN 5-325MG TAB PO PRN (03:28)
[2021-04-26] MEDS: DEXTROSE 5% IN WATER 1,000 ML IV SCH ×3 (03:28→21:14)
[2021-04-26] MEDS ORDERED: VANCOMYCIN 1,500 MG in SODIUM CHLORIDE 0.9% 250ML 250 ML IV ONE (07:28)
[2021-04-26 07:43] LABS: Hemoglobin 15.6 gm/dl (11.8-15.2); Mean Corpuscular HGB Conc 31 % (32-34); Mean Corpuscular Volume 88 fl (84-94); Platelet Count 235 K/mm3 (140-440); Red Blood Count 5.68 M/mm3 (3.65-5.03); Red Cell Distribution Width 13.4 % (13.2-15.2)
[2021-04-26] MEDS: METOPROLOL TARTRATE 50 MG TAB PO SCH ×4 (08:00→21:31)
[2021-04-26] MEDS ORDERED: VANCOMYCIN PHARMACY TO DOSE IV SCH (08:00)
[2021-04-26 08:20] LABS: BUN/Creatinine Ratio 9; Blood Urea Nitrogen 11 mg/dL (9-20); Calcium 9.2 mg/dL (8.4-10.2); Hemolysis Index 7
[2021-04-26] MEDS ORDERED: VANCOMYCIN IV NR (09:00)
[2021-04-26] MEDS ORDERED: SODIUM CHLORIDE 0.9% IV NR (09:00)
[2021-04-26] MEDS: FOLIC ACID 1 MG TAB PO SCH (11:45)
[2021-04-26] MEDS: AMIODARONE 200 MG TAB PO SCH ×2 (11:45→21:31)
[2021-04-26] MEDS: ASPIRIN 325 MG TAB PO SCH (11:45)
[2021-04-26] MEDS: cefTRIAXone/NS 2 GM/100 ML 2 GM/100 ML BAG IV SCH (11:49)
--- NOTE | 2021-04-26 12:03 | Progress Note ---
Assessment and Plan Acute CVA left hemiparesis Afib w/RVR (new onset) Etoh abuse Echo 04/20/2021-EF 45 to 50%, left ventricular systolic function is borderline. There is hypokinesis of basal inferior septal wall. Hypokinesis inferior wall. Right ventricle systolic function is normal. Bubble study did not demonstrate PFO. Plan: Continue amiodarone 200 mg p.o. twice daily and metoprolol 50 mg p.o. TID Continue aspirin and Lipitor Awaiting PEG placement Recommend resuming anticoagulation with Eliquis once cleared by GI postprocedure Subjective Date of service: 04/26/21 Principal diagnosis: CVA Interval history: Patient lying in bed sleeping. Objective Vital Signs Temp Pulse Pulse Resp BP Pulse Ox 04/26/21 11:20 100.5 F H 62 20 142/78 94 04/26/21 08:00 52 L 04/26/21 07:53 97.8 F 52 L 20 166/70 95 04/26/21 06:34 99.9 F H 68 20 158/88 96 04/26/21 03:17 102.2 F H 92 H 20 176/97 96 04/26/21 00:00 18 98 04/25/21 23:35 102.0 F H 89 20 170/96 93 04/25/21 19:36 99.9 F H 79 18 148/95 95 04/25/21 15:45 97.8 F 74 18 163/94 92 04/25/21 12:00 86 20 98 - Physical Examination General: No Apparent Distress, Other HEENT: Positive: Normocephaly Neck: Positive: trachea midline Cardiac: Positive: irregularly irregular, Tachycardia Lungs: Positive: clear to auscultation Abdomen: Positive: Soft Skin: Negative: Rash, Suspicious Lesions, Ulceration Extremities: Present: upper extr. pulses. Absent: edema - Labs and Meds CBC 04/26/21 Range/Units 07:02 WBC 17.0 H (4.5-11.0) K/mm3 RBC 5.68 H (3.65-5.03) M/mm3 Hgb 15.6 H (11.8-15.2) gm/dl Hct 50.0 H (35.5-45.6) % Plt Count 235 (140-440) K/mm3 Comprehensive Metabolic Panel 01/29/22 Range/Units 07:02 Sodium 141 D (137-145) mmol/L Potassium 3.5 L (3.6-5.0) mmol/L Chloride 104.9 (98-107) mmol/L Carbon Dioxide 23 (22-30) mmol/L BUN 11 (9-20) mg/dL Creatinine 1.2 (0.8-1.3) mg/dL Glucose 282 H (75-100) mg/dL Calcium 9.2 (8.4-10.2) mg/dL - Imaging and Cardiology EKG: report reviewed, image reviewed Echo: report reviewed - EKG Sinus rhythms and dysrhythmias: sinus rhythm
[2021-04-26 12:19] LABS: Bilirubin,Urine NEG (Negative); Blood,Urine MOD (Negative); Color,Urine Amber (Yellow)
--- NOTE | 2021-04-26 13:08 | Progress Note ---
Assessment and Plan Assessment and plan: #Fever Febrile to 102.2 last night Ordered the blood culture and urinalysis and coronavirus PCR Starting vancomycin loading dose 15 mg/kilogram and Rocephin 2 g every 24 hours If patient remains hemodynamically stable, afebrile, and negative blood cultures x48 hours, antibiotics will be discontinued. #Acute CVA Continue aspirin 325 mg daily Lipitor 40 mg daily. Holding on anticoagulation until after PEG placement. Neurology consulted; appreciate recs TTE revealing EF 45-50% with hypokinesis of the basal inferior septal wall, hypokinesis of the inferior wall. No PFO was detected. Physical therapy/Occupational Therapy recommended subacute rehab Continue to monitor #Atrial fibrillation with RVR (new onset) Cardiology consulted; appreciate recs Cardiology recommending anticoagulation; however, Eliquis 5 mg twice daily will not be started until 5-7 days out from CVAwe will hold off until after PEG tube placement. Continue metoprolol tartrate 50 mg 3 times daily for rate control. Continue p.o. amiodarone 200 mg twice daily. #Dysphagia Patient is unable to have p.o. intake due to concerns for high aspiration risk. Currently on NG tube with tube feeds. Ultimate plan is PEG tube placement by GI. GI consulted; appreciate recs. Planning PEG for 04/28/2021. Patient's daughter (Soniya Mabry at [phone]) agrees significant for PEG tube placement. Discussed with daughter at length about overall goals of care. #Advanced care planning -Disease education conducted, care plan discussed, diagnoses discussed, prognosis discussed, and patient acknowledges understanding with care plan -Time: +60 min #Discharge planning - Patient is pending subacute rehab placement - Case management has been made aware. #Social -Case management was able to locate the patient's daughter (Soniya Mabry at [phone]). Physician had discussion at length about the current hospital stay and overall long-term prognosis. Patient's family primarily lives in [place]. Patient no longer has family that lives in the state of [place]. His close friend (since childhoodMark) is the closest "family" that he has with conditions. Daughter will be speaking to the rest the family about his overall housing situation. Patient is unable to stay with his daughter due to limited physical space in the home (approximately 650 square feet). Disposition Plan: Continue medical management Total Time Spent with Patient (Minutes): 45 minutes History Interval history: Patient was febrile to 102.2 last night. Hospitalist Physical - Constitutional Vitals: Temp Pulse Resp BP Pulse Ox 100.5 F H 135 H 20 142/78 94 04/26/21 11:20 04/26/21 12:05 04/26/21 11:20 04/26/21 11:20 04/26/21 11:20 General appearance: Present: no acute distress, well-nourished - EENT Eyes: Present: PERRL, EOM intact ENT: hearing intact, clear oral mucosa, dentition normal, other (NG tube in place) - Neck Neck: Present: supple, normal ROM - Respiratory Respiratory effort: normal Respiratory: bilateral: CTA - Cardiovascular Rhythm: regular Heart Sounds: Present: S1 & S2 - Extremities Extremities: no ischemia, pulses intact, pulses symmetrical, No edema, normal temperature, normal color Peripheral Pulses: within normal limits - Abdominal General gastrointestinal: soft, non-tender, non-distended, normal bowel sounds - Integumentary Integumentary: Present: clear, warm, dry - Psychiatric Psychiatric: other (Unable to assess given neurological status) - Neurologic Neurologic: other (Unable to assess given neurological status) HEART Score - HEART Score Troponin: Troponin T 0.011 ng/mL (0.00-0.029) 04/20/21 17:44 Results - Labs CBC & Chem 7: 04/26/21 07:02 04/26/21 07:02 Labs: Laboratory Last Values WBC 17.0 K/mm3 (4.5-11.0) H 04/26/21 07:02 RBC 5.68 M/mm3 (3.65-5.03) H 04/26/21 07:02 Hgb 15.6 gm/dl (11.8-15.2) H 04/26/21 07:02 Hct 50.0 % (35.5-45.6) H 04/26/21 07:02 MCV 88 fl (84-94) 04/26/21 07:02 MCH 28 pg (28-32) 04/26/21 07:02 MCHC 31 % (32-34) L 04/26/21 07:02 RDW 13.4 % (13.2-15.2) 04/26/21 07:02 Plt Count 235 K/mm3 (140-440) 04/26/21 07:02 Lymph % (Auto) 13.3 % (13.4-35.0) L 04/24/21 04:50 [place] % (Auto) 10.9 % (0.0-7.3) H 04/24/21 04:50 Eos % (Auto) 0.2 % (0.0-4.3) 04/24/21 04:50 Baso % (Auto) 0.4 % (0.0-1.8) 04/24/21 04:50 Lymph # (Auto) 1.6 K/mm3 (1.2-5.4) 04/24/21 04:50 [place] # (Auto) 1.3 K/mm3 (0.0-0.8) H 04/24/21 04:50 Eos # (Auto) 0.0 K/mm3 (0.0-0.4) 04/24/21 04:50 Baso # (Auto) 0.1 K/mm3 (0.0-0.1) 04/24/21 04:50 Seg Neutrophils % 75.2 % (40.0-70.0) H 04/24/21 04:50 Seg Neutrophils # 8.7 K/mm3 (1.8-7.7) H 04/24/21 04:50 PT 14.8 Sec. (12.2-14.9) 04/25/21 05:05 INR 1.05 (0.87-1.13) 04/25/21 05:05 APTT 28.0 Sec. (24.2-36.6) 04/20/21 20:41 Thrombin Time 16.2 Sec. (15.1-19.6) 04/20/21 17:44 Sodium 141 mmol/L (137-145) D 04/26/21 07:02 Potassium 3.5 mmol/L (3.6-5.0) L 04/26/21 07:02 Chloride 104.9 mmol/L (98-107) 04/26/21 07:02 Carbon Dioxide 23 mmol/L (22-30) 04/26/21 07:02 Anion Gap 17 mmol/L 04/26/21 07:02 BUN 11 mg/dL (9-20) 04/26/21 07:02 Creatinine 1.2 mg/dL (0.8-1.3) 04/26/21 07:02 Estimated GFR > 60 ml/min 04/26/21 07:02 BUN/Creatinine Ratio 9 % 04/26/21 07:02 Glucose 282 mg/dL (75-100) H 04/26/21 07:02 POC Glucose 291 mg/dL (70-105) H 04/26/21 12:20 Calcium 9.2 mg/dL (8.4-10.2) 04/26/21 07:02 Magnesium 1.90 mg/dL (1.7-2.3) 04/20/21 17:44 Total Bilirubin 0.40 mg/dL (0.1-1.2) 04/20/21 17:44 AST 19 units/L (5-40) 04/20/21 17:44 ALT 35 units/L (7-56) 04/20/21 17:44 Alkaline Phosphatase 73 units/L (35-129) 04/20/21 17:44 Total Creatine Kinase 79 units/L (55-170) 04/20/21 17:44 Total Creatine Kinase 81 units/L (55-170) 04/20/21 17:44 CK-MB (CK-2) 2.1 ng/mL (0.0-4.0) 04/20/21 17:44 CK-MB (CK-2) Rel Index 2.6 (0-4) 04/20/21 17:44 Troponin T 0.011 ng/mL (0.00-0.029) 04/20/21 17:44 Total Protein 7.0 g/dL (6.3-8.2) 04/20/21 17:44 Albumin 4.1 g/dL (3.9-5) 04/20/21 17:44 Albumin/Globulin Ratio 1.4 % 04/20/21 17:44 TSH 1.040 mlU/mL (0.270-4.200) 04/20/21 19:42 Free T4 1.16 ng/dL (0.76-1.46) 04/20/21 19:42 Urine Color [place]air[place] (Yellow) 04/26/21 Unknown Urine Turbidity Cloudy (Clear) 04/26/21 Unknown Urine pH 5.0 (5.0-7.0) 04/26/21 Unknown Ur Specific [place] 1.020 (1.003-1.030) 04/26/21 Unknown Urine Protein 100 mg/dl mg/dL (Negative) 04/26/21 Unknown Urine Glucose (UA) >=500 mg/dL (Negative) 04/26/21 Unknown Urine Ketones Neg mg/dL (Negative) 04/26/21 Unknown Urine Blood Mod (Negative) 04/26/21 Unknown Urine Nitrite Neg (Negative) 04/26/21 Unknown Urine Bilirubin Neg (Negative) 04/26/21 Unknown Urine Urobilinogen 2.0 mg/dL (<2.0) 04/26/21 Unknown Ur Leukocyte Esterase Neg (Negative) 04/26/21 Unknown Urine WBC (Auto) 1.0 /HPF (0.0-6.0) 04/20/21 18:19 Urine RBC (Auto) 3.0 /HPF (0.0-6.0) 04/20/21 18:19 U Epithel Cells (Auto) < 1.0 /HPF (0-13.0) 04/20/21 18:19 Hyaline Casts 5 /LPF 04/20/21 18:19 Urine Mucus Few /HPF 04/20/21 18:19 Plasma/Serum Alcohol < 0.01 % (0-0.07) 04/20/21 17:44 Microbiology: Microbiology 04/26/21 08:31 Peripheral/Venous Blood Culture - Preliminary Culture in Progress 04/26/21 08:31 Peripheral/Venous Blood Culture - Preliminary Culture in Progress Bravo/IV: Voiding Method Condom Catheter Active Medications - Current Medications Current Medications: Generic Name Dose Route Start Last Admin Trade Name Freq PRN Reason Stop Dose Admin Acetaminophen 650 mg 04/20/21 18:41 04/26/21 11:39 Acetaminophen 325 Mg Tab PO 650 mg Q4H PRN Administration Pain, Mild (1-3) Albuterol 2.5 mg 04/20/21 18:41 Albuterol 2.5 Mg/3 Ml Nebu IH Q3HRT PRN Shortness Of Breath Amiodarone HCl 200 mg 04/24/21 11:00 04/26/21 11:45 Amiodarone 200 Mg Tab PO 200 mg BID NAMAN Administration Lipase/Protease/Amylase 1 each 04/25/21 15:16 Lipase 10,500/Protease 25,000/Amylase 43,750 (Units) Dr Cap FEEDTUBE PRN PRN For Clogged Feeding Tube Aspirin 325 mg 04/21/21 10:00 04/26/21 11:45 Aspirin 325 Mg Tab PO 325 mg QDAY NAMAN Administration Atorvastatin Calcium 40 mg 04/20/21 22:00 04/25/21 22:44 Atorvastatin 40 Mg Tab PO 40 mg QHS NAMAN Administration Bisacodyl 10 mg 04/20/21 18:41 Bisacodyl 10 Mg Rect Supp [place] QDAY PRN Constipation Cyclobenzaprine HCl 10 mg 04/20/21 19:00 04/24/21 12:36 Cyclobenzaprine 10 Mg Tab PO 10 mg TID PRN Administration Muscle Spasm Folic Acid 1 mg 04/20/21 18:59 04/26/21 11:45 Folic Acid 1 Mg Tab PO 1 mg QDAY NAMAN Administration Hydromorphone HCl 0.5 mg 04/20/21 18:41 04/22/21 16:30 Hydromorphone 1 Mg/1 Ml Inj IV 0.5 mg Q6H PRN Administration Pain , Severe (7-10) Dextrose 1,000 mls @ 125 mls/hr 04/25/21 08:00 04/26/21 11:34 D5w IV 125 mls/hr DIRECT NAMAN Administration Ceftriaxone Sodium 2 gm in 100 mls @ 200 mls/hr 04/26/21 08:00 04/26/21 11:49 Rocephin/Ns 2 Gm/100 Ml IV 200 mls/hr Q24H NAMAN Administration Protocol Vancomycin HCl 1,250 mg/ 275 mls @ 166.667 mls/hr 04/26/21 21:00 Sodium Chloride IV Q12H NAMAN Lorazepam 2 mg 04/20/21 18:44 04/25/21 16:30 Lorazepam 2 Mg/Ml Vial IV 2 mg Q1HR PRN Administration CIWA-Ar 8-15 Magnesium Hydroxide 30 ml 04/20/21 18:41 Magnesium Hydroxide (Mom) Oral Liqd Udc PO Q4H PRN Constipation Metoclopramide HCl 10 mg 04/20/21 18:41 Metoclopramide 10 Mg Tab PO Q6H PRN Nausea And Vomiting Metoprolol Tartrate 50 mg 04/25/21 10:00 04/26/21 12:05 Metoprolol Tartrate 50 Mg Tab PO 50 mg TID NAMAN Administration Ondansetron HCl 4 mg 04/20/21 18:41 Ondansetron 4 Mg/2 Ml Inj IV Q8H PRN Nausea And Vomiting Oxycodone/Acetaminophen 1 tab 04/20/21 18:41 04/26/21 03:28 Oxycodone /Acetaminophen 5-325mg Tab PO 1 tab Q12H PRN Administration Pain, Moderate (4-6) Promethazine HCl 25 mg 04/20/21 18:41 Promethazine 25 Mg Rect Supp [place] Q6H PRN Nausea And Vomiting Simple Syrup 15 ml 04/23/21 11:30 Simple Syrup 15 Ml FEEDTUBE PRN PRN Hypoglycemia Simple Syrup 30 ml 04/23/21 11:30 Simple Syrup 15 Ml FEEDTUBE PRN PRN Hypoglycemia Simple Syrup 15 ml 04/25/21 15:16 Simple Syrup 15 Ml FEEDTUBE PRN PRN Hypoglycemia Simple Syrup 30 ml 04/25/21 15:16 Simple Syrup 15 Ml FEEDTUBE PRN PRN Hypoglycemia Sodium Bicarbonate 325 mg 04/23/21 11:30 Sodium Bicarbonate 325 Mg Tab FEEDTUBE PRN PRN For Clogged Feeding Tube Sodium Bicarbonate 325 mg 04/25/21 15:16 Sodium Bicarbonate 325 Mg Tab FEEDTUBE PRN PRN For Clogged Feeding Tube Sodium Chloride 10 ml 04/20/21 18:41 04/25/21 22:44 Sodium Chloride 0.9% 10 Ml Flush Syringe IV 10 ml PRN PRN Administration LINE FLUSH Nutrition/Malnutrition Assess - Dietary Evaluation Nutrition/Malnutrition Findings: Nutrition Notes Start: 04/23/21 12:36 Freq: Status: Active Protocol: Document 04/25/21 16:30 ANNIKA (Rec: 04/25/21 16:42 ANNIKA [email or web address]) Nutrition Notes Initial or Follow up Reassessment Current Diagnosis Hypertension,Stroke Other Pertinent Diagnosis Atrial Fibrilation w/RVR, EtOH & Tobacco dependence. Current Diet TF-Jevity 1.2 [place] @ 68 ml/hr ( since D 04/25). Labs/Tests 04/25: Na 150, Cl 112.9, Glu 192. Pertinent Medications 04/25: D5w 1000 ml @ 125 ml/hr , Folic acid, others nutritionally unremarkable. Height 6 ft 3 in Weight 79.5 kg [place] Body Weight (kg) 89.09 BMI 21.9 Weight Status Appropriate Subjective/Other Information RD consult on MD's TF write/ manage request. EGD/PEG rescheduled for 04/28. resume TF until 04/28 00:01, then NPO. Percent of energy/protein needs met: Prescribed Jevity 1.2 [place] @ 68 ml/hr provides for energy/ protein needs (1,804 Kcal/77 g ) during LOS, 91% Kcal; 100% AA. Burn Absent Trauma Absent GI Symptoms None Food Allergy No Skin Integrity/Comment Clear, warm, dry. Current % PO Other Minimum of two criteria No #1 Nutrition Diagnosis Inadequate oral intake Diagnosis Progress(for reassessment Continues documentation) Is patient on ventilator? No Is Patient Ambulatory and/or Out of Bed No REE-([facility]-confined to bed) 2020.748 Calculation Used for Recommendations [facility] Additional Notes Protein: 0.8-1 g/Kg; 73-91 g/ day. Fluids: 1 ml/Kcal, or as per MD. Nutrition Intervention Nutrition Support: Resume Jevity 1.2 Maurice @ 68 ml/ hr. Flush: 150 ml water Q 4 hr, or as per MD. Kcal 1,960 Protein (gm) 91 Carbohydrates (gm) 277 Fat (gm) 64 Fluid (mL) 1,318 Fiber (gm) 29 % RDI: 91% Kcal; 100% AA. Goal #1 Provide at least 75% of energy /protein needs through Enteral Feeding during LOS. Goal #2 Maintain body weight within +/ -3% of admission body weight during LOS. Follow-Up By: 04/29/21 Additional Comments When pertinent, continue monitoring TF tolerance and BM .
[2021-04-26] MEDS ORDERED: SODIUM CHLORIDE 0.9% 250ML 250 ML ONE (21:28)
[2021-04-26] MEDS: VANCOMYCIN 1,250 MG in SODIUM CHLORIDE 0.9% 250ML 250 ML IV SCH (21:30)
[2021-04-27] MEDS ORDERED: DEXTROSE 50% IN WATER (25GM) 50 ML SYRINGE IV PRN ×2 (03:52→03:56)
[2021-04-27] MEDS ORDERED: DEXTROSE 10% *Hypoglycemia IV PRN (04:03)
[2021-04-27 06:30] LABS: Basophils % (Auto) 0.2 % (0.0-1.8); Eosinophils # (Auto) 0.1 K/mm3 (0.0-0.4); Eosinophils % (Auto) 0.6 % (0.0-4.3); Hematocrit 48.7 % (35.5-45.6); Hemoglobin 15.3 gm/dl (11.8-15.2); Lymphocytes # (Auto) 1.4 K/mm3 (1.2-5.4); Lymphocytes % (Auto) 8.7 % (13.4-35.0); Mean Corpuscular HGB Conc 31 % (32-34); Mean Corpuscular Volume 88 fl (84-94); Monocytes # (Auto) 2.2 K/mm3 (0.0-0.8); Monocytes % (Auto) 13.5 % (0.0-7.3); Platelet Count 225 K/mm3 (140-440); Red Blood Count 5.54 M/mm3 (3.65-5.03); Red Cell Distribution Width 13.6 % (13.2-15.2)
[2021-04-27] MEDS ORDERED: INSULIN LISPRO 100 UNIT/ML SUB-Q SCH (07:30)
[2021-04-27] MEDS: INSULIN LISPRO 100 UNIT/ML SUB-Q SCH ×4 (07:30→23:00)
[2021-04-27] MEDS: DEXTROSE 5% IN WATER 1,000 ML IV SCH ×2 (08:49→22:59)
[2021-04-27] MEDS: METOPROLOL TARTRATE 50 MG TAB PO SCH ×3 (08:53→23:00)
[2021-04-27] MEDS: HEPARIN 5,000 UNIT/1 ML VIAL SUB-Q SCH ×3 (08:53→23:00)
[2021-04-27] MEDS: VANCOMYCIN 1,250 MG in SODIUM CHLORIDE 0.9% 250ML 250 ML IV SCH (09:55)
[2021-04-27] MEDS: ASPIRIN 325 MG TAB PO SCH (10:01)
[2021-04-27] MEDS: FOLIC ACID 1 MG TAB PO SCH (10:01)
[2021-04-27] MEDS: cefTRIAXone/NS 2 GM/100 ML 2 GM/100 ML BAG IV SCH (10:01)
[2021-04-27] MEDS: AMIODARONE 200 MG TAB PO SCH ×2 (10:01→23:00)
--- NOTE | 2021-04-27 10:13 | Progress Note ---
Assessment and Plan Acute CVA left hemiparesis Afib w/RVR (new onset) Etoh abuse Echo 04/20/2021-EF 45 to 50%, left ventricular systolic function is borderline. There is hypokinesis of basal inferior septal wall. Hypokinesis inferior wall. Right ventricle systolic function is normal. Bubble study did not demonstrate PFO. Plan: Continue amiodarone 200 mg p.o. twice daily and metoprolol 50 mg p.o. TID Continue aspirin and Lipitor Awaiting PEG placement Recommend resuming anticoagulation with Eliquis once cleared by GI postprocedure Subjective Date of service: 04/27/21 Principal diagnosis: CVA Interval history: Patient lying in bed sleeping. Objective Vital Signs Temp Pulse Resp BP Pulse Ox 04/27/21 08:53 87 04/27/21 08:04 98.3 F 50 L 20 124/95 95 04/27/21 05:47 99.1 F 81 18 175/89 95 04/27/21 00:51 100.1 F H 78 20 130/84 94 04/27/21 00:00 137 H 97 04/26/21 21:31 126 H 113/77 04/26/21 21:17 126 H 04/26/21 20:40 101.3 F H 38 L 22 113/77 94 04/26/21 16:18 98.2 F 44 L 20 137/76 96 04/26/21 16:00 120 H 04/26/21 15:43 120 H 04/26/21 12:05 135 H 04/26/21 12:00 20 94 04/26/21 11:20 100.5 F H 62 20 142/78 94 - Physical Examination General: No Apparent Distress, Other HEENT: Positive: Normocephaly Neck: Positive: trachea midline Cardiac: Positive: irregularly irregular, Tachycardia Lungs: Positive: Decreased Breath Sounds Abdomen: Positive: Soft Skin: Negative: Rash, Suspicious Lesions, Ulceration Extremities: Present: upper extr. pulses. Absent: edema - Labs and Meds CBC 04/27/21 Range/Units 04:36 WBC 16.2 H (4.5-11.0) K/mm3 RBC 5.54 H (3.65-5.03) M/mm3 Hgb 15.3 H (11.8-15.2) gm/dl Hct 48.7 H (35.5-45.6) % Plt Count 225 (140-440) K/mm3 Lymph # (Auto) 1.4 (1.2-5.4) K/mm3 [place] # (Auto) 2.2 H (0.0-0.8) K/mm3 Eos # (Auto) 0.1 (0.0-0.4) K/mm3 Baso # (Auto) 0.0 (0.0-0.1) K/mm3 Comprehensive Metabolic Panel 04/27/21 Range/Units 04:36 Sodium 140 (137-145) mmol/L Potassium 3.8 (3.6-5.0) mmol/L Chloride 100.3 (98-107) mmol/L Carbon Dioxide 24 (22-30) mmol/L BUN 16 (9-20) mg/dL Creatinine 1.6 H (0.8-1.3) mg/dL Glucose 375 H (75-100) mg/dL Calcium 9.0 (8.4-10.2) mg/dL - Imaging and Cardiology EKG: report reviewed, image reviewed Echo: report reviewed - EKG Sinus rhythms and dysrhythmias: sinus rhythm
--- NOTE | 2021-04-27 11:28 | Gastroenterology Progress Note ---
Assessment and Plan Plan for PEG tube placement tomorrow please stop tube feeds overnight - Patient Problems (1) Dysphagia Current Visit: Yes Status: Acute (2) Atrial fibrillation with RVR Current Visit: Yes Status: Acute (3) CVA (cerebral vascular accident) Current Visit: Yes Status: Acute Subjective Date of service: 04/27/21 Principal diagnosis: CVA Interval history: Patient unable to provide good history Awaiting PEG placement Objective - Constitutional Vitals: Temp Pulse Resp BP Pulse Ox 98.3 F 87 20 124/95 95 04/27/21 08:04 04/27/21 08:53 04/27/21 08:04 04/27/21 08:04 04/27/21 08:04 General appearance: no acute distress - Respiratory Respiratory effort: normal - Gastrointestinal General gastrointestinal: Present: soft, non-tender, normal bowel sounds - Labs CBC & Chem 7: 04/27/21 04:36 04/27/21 04:36 Labs: Laboratory Results - last 24 hr 04/26/21 04/26/21 04/26/21 12:20 16:31 Unknown WBC RBC Hgb Hct MCV MCH MCHC RDW Plt Count Lymph % (Auto) [place] % (Auto) Eos % (Auto) Baso % (Auto) Lymph # (Auto) [place] # (Auto) Eos # (Auto) Baso # (Auto) Seg Neutrophils % Seg Neutrophils # Sodium Potassium Chloride Carbon Dioxide Anion Gap BUN Creatinine Estimated GFR BUN/Creatinine Ratio Glucose POC Glucose 291 H 316 H Calcium Urine Color [place] Urine Turbidity Cloudy Urine pH 5.0 Ur Specific [place] 1.020 Urine Protein 100 mg/dl Urine Glucose (UA) >=500 Urine Ketones Neg Urine Blood Mod Urine Nitrite Neg Urine Bilirubin Neg Urine Urobilinogen 2.0 Ur Leukocyte Esterase Neg 04/27/21 04/27/21 04/27/21 03:46 04:36 04:36 WBC 16.2 H RBC 5.54 H Hgb 15.3 H Hct 48.7 H MCV 88 MCH 28 MCHC 31 L RDW 13.6 Plt Count 225 Lymph % (Auto) 8.7 L [place] % (Auto) 13.5 H Eos % (Auto) 0.6 Baso % (Auto) 0.2 Lymph # (Auto) 1.4 [place] # (Auto) 2.2 H Eos # (Auto) 0.1 Baso # (Auto) 0.0 Seg Neutrophils % 77.0 H Seg Neutrophils # 12.5 H Sodium 140 Potassium 3.8 Chloride 100.3 Carbon Dioxide 24 Anion Gap 20 BUN 16 Creatinine 1.6 H Estimated GFR 53 BUN/Creatinine Ratio 10 Glucose 375 H POC Glucose 374 H Calcium 9.0 Urine Color Urine Turbidity Urine pH Ur Specific [place] Urine Protein Urine Glucose (UA) Urine Ketones Urine Blood Urine Nitrite Urine Bilirubin Urine Urobilinogen Ur Leukocyte Esterase
--- NOTE | 2021-04-27 12:50 | Progress Note ---
Assessment and Plan Assessment and plan: #Fever Febrile to 102.2 last night Ordered the blood culture and urinalysis and coronavirus PCR Starting vancomycin loading dose 15 mg/kilogram and Rocephin 2 g every 24 hours If patient remains hemodynamically stable, afebrile, and negative blood cultures x48 hours, antibiotics will be discontinued. #Acute CVA Continue aspirin 325 mg daily Lipitor 40 mg daily. Holding on anticoagulation until after PEG placement. Neurology consulted; appreciate recs TTE revealing EF 45-50% with hypokinesis of the basal inferior septal wall, hypokinesis of the inferior wall. No PFO was detected. Physical therapy/Occupational Therapy recommended subacute rehab Continue to monitor #Atrial fibrillation with RVR (new onset) Cardiology consulted; appreciate recs Cardiology recommending anticoagulation; however, Eliquis 5 mg twice daily will not be started until 5-7 days out from CVAwe will hold off until after PEG tube placement. Continue metoprolol tartrate 50 mg 3 times daily for rate control. Continue p.o. amiodarone 200 mg twice daily. #Dysphagia Patient is unable to have p.o. intake due to concerns for high aspiration risk. Currently on NG tube with tube feeds. Ultimate plan is PEG tube placement by GI. GI consulted; appreciate recs. Planning PEG for 04/28/2021. Patient's daughter (Soniya Mabry at [phone]) agrees significant for PEG tube placement. Discussed with daughter at length about overall goals of care. #Advanced care planning -Disease education conducted, care plan discussed, diagnoses discussed, prognosis discussed, and patient acknowledges understanding with care plan -Time: +60 min #Discharge planning - Patient is pending subacute rehab placement - Case management has been made aware. #Social -Case management was able to locate the patient's daughter (Soniya Mabry at [phone]). Physician had discussion at length about the current hospital stay and overall long-term prognosis. Patient's family primarily lives in [place]. Patient no longer has family that lives in the state of [place]. His close friend (since childhoodMark) is the closest "family" that he has with conditions. Daughter will be speaking to the rest the family about his overall housing situation. Patient is unable to stay with his daughter due to limited physical space in the home (approximately 650 square feet). Disposition Plan: Continue medical management Total Time Spent with Patient (Minutes): 30 min History Interval history: No acute events overnight. Hospitalist Physical - Constitutional Vitals: Temp Pulse Resp BP Pulse Ox 98.3 F 87 18 124/95 95 04/27/21 08:04 04/27/21 08:53 04/27/21 12:00 04/27/21 08:04 04/27/21 12:00 General appearance: Present: no acute distress, well-nourished - EENT Eyes: Present: PERRL, EOM intact ENT: hearing intact, clear oral mucosa, other (NGT in place) - Neck Neck: Present: supple, normal ROM - Respiratory Respiratory effort: normal Respiratory: bilateral: diminished - Cardiovascular Heart rate: 120 Rhythm: irregularly irregular Heart Sounds: Present: S1 & S2 - Extremities Extremities: no ischemia, pulses intact, pulses symmetrical, No edema, normal temperature, normal color Peripheral Pulses: within normal limits - Abdominal General gastrointestinal: soft, non-tender, non-distended, normal bowel sounds - Integumentary Integumentary: Present: clear, warm, dry - Psychiatric Psychiatric: other (unable to assess given medical condition) - Neurologic Neurologic: other (unable to assess given medical condition) - Allied Health Allied health notes reviewed: nursing HEART Score - HEART Score Troponin: Troponin T 0.011 ng/mL (0.00-0.029) 04/20/21 17:44 Results - Labs CBC & Chem 7: 04/27/21 04:36 04/27/21 04:36 Labs: Laboratory Last Values WBC 16.2 K/mm3 (4.5-11.0) H 04/27/21 04:36 RBC 5.54 M/mm3 (3.65-5.03) H 04/27/21 04:36 Hgb 15.3 gm/dl (11.8-15.2) H 04/27/21 04:36 Hct 48.7 % (35.5-45.6) H 04/27/21 04:36 MCV 88 fl (84-94) 04/27/21 04:36 MCH 28 pg (28-32) 04/27/21 04:36 MCHC 31 % (32-34) L 04/27/21 04:36 RDW 13.6 % (13.2-15.2) 04/27/21 04:36 Plt Count 225 K/mm3 (140-440) 04/27/21 04:36 Lymph % (Auto) 8.7 % (13.4-35.0) L 04/27/21 04:36 Rawlins % (Auto) 13.5 % (0.0-7.3) H 04/27/21 04:36 Eos % (Auto) 0.6 % (0.0-4.3) 04/27/21 04:36 Baso % (Auto) 0.2 % (0.0-1.8) 04/27/21 04:36 Lymph # (Auto) 1.4 K/mm3 (1.2-5.4) 04/27/21 04:36 Rawlins # (Auto) 2.2 K/mm3 (0.0-0.8) H 04/27/21 04:36 Eos # (Auto) 0.1 K/mm3 (0.0-0.4) 04/27/21 04:36 Baso # (Auto) 0.0 K/mm3 (0.0-0.1) 04/27/21 04:36 Seg Neutrophils % 77.0 % (40.0-70.0) H 04/27/21 04:36 Seg Neutrophils # 12.5 K/mm3 (1.8-7.7) H 04/27/21 04:36 PT 14.8 Sec. (12.2-14.9) 04/25/21 05:05 INR 1.05 (0.87-1.13) 04/25/21 05:05 APTT 28.0 Sec. (24.2-36.6) 04/20/21 20:41 Thrombin Time 16.2 Sec. (15.1-19.6) 04/20/21 17:44 Sodium 140 mmol/L (137-145) 04/27/21 04:36 Potassium 3.8 mmol/L (3.6-5.0) 04/27/21 04:36 Chloride 100.3 mmol/L (98-107) 04/27/21 04:36 Carbon Dioxide 24 mmol/L (22-30) 04/27/21 04:36 Anion Gap 20 mmol/L 04/27/21 04:36 BUN 16 mg/dL (9-20) 04/27/21 04:36 Creatinine 1.6 mg/dL (0.8-1.3) H 04/27/21 04:36 Estimated GFR 53 ml/min 04/27/21 04:36 BUN/Creatinine Ratio 10 % 04/27/21 04:36 Glucose 375 mg/dL (75-100) H 04/27/21 04:36 POC Glucose 255 mg/dL (70-105) H 04/27/21 12:26 Calcium 9.0 mg/dL (8.4-10.2) 04/27/21 04:36 Magnesium 1.90 mg/dL (1.7-2.3) 04/20/21 17:44 Total Bilirubin 0.40 mg/dL (0.1-1.2) 04/20/21 17:44 AST 19 units/L (5-40) 04/20/21 17:44 ALT 35 units/L (7-56) 04/20/21 17:44 Alkaline Phosphatase 73 units/L (35-129) 04/20/21 17:44 Total Creatine Kinase 79 units/L (55-170) 04/20/21 17:44 Total Creatine Kinase 81 units/L (55-170) 04/20/21 17:44 CK-MB (CK-2) 2.1 ng/mL (0.0-4.0) 04/20/21 17:44 CK-MB (CK-2) Rel Index 2.6 (0-4) 04/20/21 17:44 Troponin T 0.011 ng/mL (0.00-0.029) 04/20/21 17:44 Total Protein 7.0 g/dL (6.3-8.2) 04/20/21 17:44 Albumin 4.1 g/dL (3.9-5) 04/20/21 17:44 Albumin/Globulin Ratio 1.4 % 04/20/21 17:44 TSH 1.040 mlU/mL (0.270-4.200) 04/20/21 19:42 Free T4 1.16 ng/dL (0.76-1.46) 04/20/21 19:42 Urine Color Saira (Yellow) 04/26/21 Unknown Urine Turbidity Cloudy (Clear) 04/26/21 Unknown Urine pH 5.0 (5.0-7.0) 04/26/21 Unknown Ur Specific Portal 1.020 (1.003-1.030) 04/26/21 Unknown Urine Protein 100 mg/dl mg/dL (Negative) 04/26/21 Unknown Urine Glucose (UA) >=500 mg/dL (Negative) 04/26/21 Unknown Urine Ketones Neg mg/dL (Negative) 04/26/21 Unknown Urine Blood Mod (Negative) 04/26/21 Unknown Urine Nitrite Neg (Negative) 04/26/21 Unknown Urine Bilirubin Neg (Negative) 04/26/21 Unknown Urine Urobilinogen 2.0 mg/dL (<2.0) 04/26/21 Unknown Ur Leukocyte Esterase Neg (Negative) 04/26/21 Unknown Urine WBC (Auto) 1.0 /HPF (0.0-6.0) 04/20/21 18:19 Urine RBC (Auto) 3.0 /HPF (0.0-6.0) 04/20/21 18:19 U Epithel Cells (Auto) < 1.0 /HPF (0-13.0) 04/20/21 18:19 Hyaline Casts 5 /LPF 04/20/21 18:19 Urine Mucus Few /HPF 04/20/21 18:19 Plasma/Serum Alcohol < 0.01 % (0-0.07) 04/20/21 17:44 Coronavirus (PCR) Positive (Negative) A 04/27/21 09:00 Microbiology: Microbiology 04/26/21 08:31 Peripheral/Venous Blood Culture - Preliminary NO GROWTH AFTER 24 HOURS 04/26/21 08:31 Peripheral/Venous Blood Culture - Preliminary NO GROWTH AFTER 24 HOURS Bravo/IV: Voiding Method Condom Catheter Active Medications - Current Medications Current Medications: Generic Name Dose Route Start Last Admin Trade Name Freq PRN Reason Stop Dose Admin Acetaminophen 650 mg 04/20/21 18:41 04/26/21 21:31 Acetaminophen 325 Mg Tab PO 650 mg Q4H PRN Administration Pain, Mild (1-3) Albuterol 2.5 mg 04/20/21 18:41 Albuterol 2.5 Mg/3 Ml Nebu IH Q3HRT PRN Shortness Of Breath Amiodarone HCl 200 mg 04/24/21 11:00 04/27/21 10:01 Amiodarone 200 Mg Tab PO 200 mg BID NAMAN Administration Lipase/Protease/Amylase 1 each 04/25/21 15:16 Lipase 10,500/Protease 25,000/Amylase 43,750 (Units) Dr Willingham FEEDTUBE PRN PRN For Clogged Feeding Tube Aspirin 325 mg 04/21/21 10:00 04/27/21 10:01 Aspirin 325 Mg Tab PO 325 mg QDAY NAMAN Administration Atorvastatin Calcium 40 mg 04/20/21 22:00 04/26/21 21:32 Atorvastatin 40 Mg Tab PO 40 mg QHS NAMAN Administration Bisacodyl 10 mg 04/20/21 18:41 Bisacodyl 10 Mg Rect Supp NC QDAY PRN Constipation Cyclobenzaprine HCl 10 mg 04/20/21 19:00 04/24/21 12:36 Cyclobenzaprine 10 Mg Tab PO 10 mg TID PRN Administration Muscle Spasm Dextrose 0 ml 04/27/21 04:03 Dextrose 10% *Hypoglycemia IV PRN PRN Hypoglycemia Protocol Folic Acid 1 mg 04/20/21 18:59 04/27/21 10:01 Folic Acid 1 Mg Tab PO 1 mg QDAY NAMAN Administration Heparin Sodium (Porcine) 5,000 unit 04/27/21 08:00 04/27/21 08:53 Heparin 5,000 Unit/1 Ml Vial SUB-Q 5,000 unit Q8HR NAMAN Administration Hydromorphone HCl 0.5 mg 04/20/21 18:41 04/22/21 16:30 Hydromorphone 1 Mg/1 Ml Inj IV 0.5 mg Q6H PRN Administration Pain , Severe (7-10) Dextrose 1,000 mls @ 125 mls/hr 04/25/21 08:00 04/27/21 08:49 D5w IV 125 mls/hr DIRECT NAMAN Administration Ceftriaxone Sodium 2 gm in 100 mls @ 200 mls/hr 04/26/21 08:00 04/27/21 10:01 Rocephin/Ns 2 Gm/100 Ml IV 200 mls/hr Q24H NAMAN Administration Protocol Vancomycin HCl 1,250 mg/ 275 mls @ 166.667 mls/hr 04/26/21 21:00 04/27/21 09:55 Sodium Chloride IV 166.667 mls/hr Q12H NAMAN Administration Insulin Human Lispro 0 unit 04/27/21 04:00 04/27/21 07:30 Insulin Lispro 100 Unit/Ml SUB-Q 8 unit Q6HR NAMAN Administration Protocol Holleyazepam 2 mg 04/20/21 18:44 04/25/21 16:30 Lorazepam 2 Mg/Ml Vial IV 2 mg Q1HR PRN Administration GUALBERTO-Akhil 8-15 Magnesium Hydroxide 30 ml 04/20/21 18:41 Magnesium Hydroxide (Mom) Oral Liqd Udc PO Q4H PRN Constipation Metoclopramide HCl 10 mg 04/20/21 18:41 Metoclopramide 10 Mg Tab PO Q6H PRN Nausea And Vomiting Metoprolol Tartrate 50 mg 04/25/21 10:00 04/27/21 08:53 Metoprolol Tartrate 50 Mg Tab PO 50 mg TID NAMAN Administration Ondansetron HCl 4 mg 04/20/21 18:41 Ondansetron 4 Mg/2 Ml Inj IV Q8H PRN Nausea And Vomiting Oxycodone/Acetaminophen 1 tab 04/20/21 18:41 04/26/21 03:28 Oxycodone /Acetaminophen 5-325mg Tab PO 1 tab Q12H PRN Administration Pain, Moderate (4-6) Promethazine HCl 25 mg 04/20/21 18:41 Promethazine 25 Mg Rect Supp NC Q6H PRN Nausea And Vomiting Simple Syrup 15 ml 04/23/21 11:30 Simple Syrup 15 Ml FEEDTUBE PRN PRN Hypoglycemia Simple Syrup 30 ml 04/23/21 11:30 Simple Syrup 15 Ml FEEDTUBE PRN PRN Hypoglycemia Simple Syrup 15 ml 04/25/21 15:16 Simple Syrup 15 Ml FEEDTUBE PRN PRN Hypoglycemia Simple Syrup 30 ml 04/25/21 15:16 Simple Syrup 15 Ml FEEDTUBE PRN PRN Hypoglycemia Sodium Bicarbonate 325 mg 04/23/21 11:30 Sodium Bicarbonate 325 Mg Tab FEEDTUBE PRN PRN For Clogged Feeding Tube Sodium Bicarbonate 325 mg 04/25/21 15:16 Sodium Bicarbonate 325 Mg Tab FEEDTUBE PRN PRN For Clogged Feeding Tube Sodium Chloride 10 ml 04/20/21 18:41 04/25/21 22:44 Sodium Chloride 0.9% 10 Ml Flush Syringe IV 10 ml PRN PRN Administration LINE FLUSH Nutrition/Malnutrition Assess - Dietary Evaluation Nutrition/Malnutrition Findings: Nutrition Notes Start: 04/23/21 12:36 Freq: Status: Active Protocol: Document 04/25/21 16:30 ANNIKA (Rec: 04/25/21 16:42 ANNIKA [id number]) Nutrition Notes Initial or Follow up Reassessment Current Diagnosis Hypertension,Stroke Other Pertinent Diagnosis Atrial Fibrilation w/RVR, EtOH & Tobacco dependence. Current Diet TF-Jevity 1.2 Maurice @ 68 ml/hr ( since D 04/25). Labs/Tests 04/25: Na 150, Cl 112.9, Glu 192. Pertinent Medications 04/25: D5w 1000 ml @ 125 ml/hr , Folic acid, others nutritionally unremarkable. Height 6 ft 3 in Weight 79.5 kg Cherry Log Body Weight (kg) 89.09 BMI 21.9 Weight Status Appropriate Subjective/Other Information RD consult on MD's TF write/ manage request. EGD/PEG rescheduled for 04/28. resume TF until 04/28 00:01, then NPO. Percent of energy/protein needs met: Prescribed Jevity 1.2 Maurice @ 68 ml/hr provides for energy/ protein needs (1,804 Kcal/77 g ) during LOS, 91% Kcal; 100% AA. Burn Absent Trauma Absent GI Symptoms None Food Allergy No Skin Integrity/Comment Clear, warm, dry. Current % PO Other Minimum of two criteria No #1 Nutrition Diagnosis Inadequate oral intake Diagnosis Progress(for reassessment Continues documentation) Is patient on ventilator? No Is Patient Ambulatory and/or Out of Bed No REE-([facility]-confined to bed) 2020.748 Calculation Used for Recommendations [facility] Additional Notes Protein: 0.8-1 g/Kg; 73-91 g/ day. Fluids: 1 ml/Kcal, or as per MD. Nutrition Intervention Nutrition Support: Resume Jevity 1.2 Maurice @ 68 ml/ hr. Flush: 150 ml water Q 4 hr, or as per MD. Kcal 1,960 Protein (gm) 91 Carbohydrates (gm) 277 Fat (gm) 64 Fluid (mL) 1,318 Fiber (gm) 29 % RDI: 91% Kcal; 100% AA. Goal #1 Provide at least 75% of energy /protein needs through Enteral Feeding during LOS. Goal #2 Maintain body weight within +/ -3% of admission body weight during LOS. Follow-Up By: 04/29/21 Additional Comments When pertinent, continue monitoring TF tolerance and BM .
[2021-04-27] MEDS ORDERED: SODIUM CHLORIDE 0.9% 1000 ML 1,000 ML IV ONE (22:30)
[2021-04-27] MEDS: ACETAMINOPHEN 325 MG TAB PO PRN (22:59)
[2021-04-28] MEDS: HEPARIN 5,000 UNIT/1 ML VIAL SUB-Q SCH (05:42)
[2021-04-28] MEDS: INSULIN LISPRO 100 UNIT/ML SUB-Q SCH ×4 (05:58→22:53)
[2021-04-28] MEDS: METOPROLOL TARTRATE 50 MG TAB PO SCH ×3 (08:06→21:56)
--- NOTE | 2021-04-28 10:09 | Anesthesia Consultation ---
Anesthesia Consult and Med Hx Date of service: 04/28/21 - Airway Anesthetic Teeth Evaluation: Good (per visual inspection) Mental/Hyoid Distance: Adequate Mallampati Class: Class III Intubation Access Assessment: Possibly Difficult (not cooperative with airway exam) - Cardiac Exam Cardiac Exam: No Murmur (irregular rhythm with rate 70s-low 100s) - Pre-Operative Health Status ASA Pre-Surgery Classification: ASA3 Proposed Anesthetic Plan: MAC - Pulmonary Hx Smoking: Yes Hx Respiratory Symptoms: No (COVID+ 04/27/21; no apparent symptoms) - Cardiovascular System Hx Hypertension: No Hx Heart Attack/AMI: No Hx Cardia Arrhythmia: Yes (a-fib, previously w/ RVR but now rate controlled) Hx Pacemaker: No Hx Internal Defibrillator: No - Central Nervous System CVA: Yes (acute CVA this admission) - Gastrointestinal Hx Gastroesophageal Reflux Disease: No (dysphagia) - Endocrine Hx End Stage Renal Disease: No Hx Liver Disease: No Hx Insulin Dependent Diabetes: No Hx Non-Insulin Dependent Diabetes: No - Other Systems Hx Alcohol Use: Yes (per chart review)
[2021-04-28] MEDS ORDERED: SODIUM CHLORIDE 0.9% 1000 ML 1,000 ML ONE (10:11)
--- NOTE | 2021-04-28 10:13 | Anesthesia Day of Surgery ---
Anesthesia Day of Surgery - Day of Surgery Patient Examined: Yes Patient H&P Reviewed: Yes Patient is NPO: Yes Beta Blockers: Yes
[2021-04-28 10:25] LABS: C-Reactive Protein 15.4 mg/dL (0.00-1.30); Calcium 8.9 mg/dL (8.4-10.2)
[2021-04-28] MEDS ORDERED: ceFAZolin/STERILE WATER 2 GM/20 ML SYRINGE IV ONE (10:30)
[2021-04-28] MEDS ORDERED: propofoL 200 MG/20 ML VIAL IV ONE (10:32)
[2021-04-28] MEDS ORDERED: ceFAZolin/Water 2 GM/20 ML 2 GM/20 ML SYRINGE IV ONE (10:33)
[2021-04-28 10:38] LABS: Basophils % (Auto) 0.2 % (0.0-1.8); Eosinophils # (Auto) 0.2 K/mm3 (0.0-0.4); Eosinophils % (Auto) 1.1 % (0.0-4.3); Lymphocytes # (Auto) 1.2 K/mm3 (1.2-5.4); Lymphocytes % (Auto) 7.9 % (13.4-35.0); Mean Corpuscular HGB Conc 31 % (32-34); Mean Corpuscular Volume 88 fl (84-94); Monocytes # (Auto) 1.6 K/mm3 (0.0-0.8); Monocytes % (Auto) 10.7 % (0.0-7.3); Platelet Count 236 K/mm3 (140-440); Red Blood Count 5.22 M/mm3 (3.65-5.03); Red Cell Distribution Width 13.4 % (13.2-15.2)
[2021-04-28 10:48] LABS: Hematocrit 45.7 % (35.5-45.6); Hemoglobin 14.1 gm/dl (11.8-15.2)
--- NOTE | 2021-04-28 10:53 | Operative Report ---
Operative Report Operative Report: DOS 04/28/21 ANTIBIOTICS: Ancef IV 2gm x 1 SURGEON: Drew Mckay MD EGD WITH PEG TUBE PLACEMENT REPORT PREOPERATIVE DIAGNOSIS and POSTOPERATIVE DIAGNOSIS: Dysphagia ESTIMATED BLOOD LOSS: minimal DESCRIPTION OF PROCEDURE: A high-resolution EGD scope was passed through the oropharynx, esophagus, stomach, and second portion of duodenum. The scope was carefully withdrawn. Retroflexion was performed in the stomach. At the end of the procedure, the scope was cleaned using normal technique. Vital signs monitored continuously throughout. The stomach was transilluminated and an optimal position for the PEG tube was identified using the single poke method. The skin was infiltrated with local anesthesia and the needle and sheath were inserted through the abdomen into the stomach under direct visualization. The needle was removed and a guidewire was inserted through the sheath. The guidewire was grasped from above with a snare. It was removed completely and the PEG tube was secured to the guidewire. The guidewire and PEG tube were then pulled through the mouth and esophagus and snug to the abdominal wall. There was no evidence of bleeding. The Bolster was placed on the PEG site. SEDATION: Provided by Anesthesiology Services. COMPLICATIONS: None. FINDINGS: * No gross lesions entire examined duodenum * Moderate to severe diffuse gastritis entire examined stomach * GE junction 40 cm from incisors * 3 cm hiatal hernia * Mild reflux esophagitis distal one third of the esophagus * Remainder of exam unremarkable RECOMMENDATIONS: The PEG may be used for medication and water flushes now. Tomorrow, if there are normal bowel sounds and no significant abdominal tenderness to palpation may start tube feeds
--- NOTE | 2021-04-28 11:12 | Progress Note ---
Assessment and Plan Patient is 61-year-old male past medical history of CVH with LHP, nicotine dependence, EtOH dependence who presented to the ED with a complaint of left- sided weakness and difficulty speaking x 2days CVA Afib w/RVR(new onset) Etoh abuse NSVT Echo 04/20/2021-EF 45 to 50%, left ventricular systolic function is borderline. There is hypokinesis of basal inferior septal wall. Hypokinesis inferior wall. Right ventricle systolic function is normal. Bubble study did not demonstrate PFO. Plan: Continue amiodarone 200 mg p.o. twice daily Continue metoprolol 50 mg p.o. TID, aspirin, and Lipitor Recommend resuming anticoagulation with Eliquis once cleared by GI postprocedure Patient seen in conjunction with Dr. Samuels who agrees with this plan of care - Patient Problems (1) Alcohol dependence Current Visit: Yes Status: Acute (2) Atrial fibrillation with RVR Current Visit: Yes Status: Acute (3) CVA (cerebral vascular accident) Current Visit: Yes Status: Acute (4) Elevated blood pressure reading Current Visit: Yes Status: Acute (5) Nicotine dependence Current Visit: Yes Status: Acute Qualifiers: Nicotine product type: cigarettes Substance use status: in withdrawal Qualified Code(s): F17.213 - Nicotine dependence, cigarettes, with withdrawal (6) Stroke Current Visit: Yes Status: Acute Subjective Date of service: 04/28/21 Principal diagnosis: CVA Interval history: Patient for PEG placement today Patient sinus jenni 100s on monitor with episodes of NSVT Objective Vital Signs Temp Pulse Resp BP BP Pulse Ox 04/28/21 04:54 98.0 F 80 20 113/88 96 04/28/21 00:00 18 95 04/27/21 23:00 90 113/75 04/27/21 21:14 98.3 F 45 L 16 92/57 95 04/27/21 16:00 97.9 F 70 16 135/77 95 04/27/21 15:51 99.9 F H 75 22 135/103 96 04/27/21 12:00 18 95 04/27/21 11:42 99.8 F H 49 L 22 111/72 92 - Physical Examination General: No Apparent Distress, Other HEENT: Positive: Normocephaly Neck: Positive: trachea midline Cardiac: Positive: Regular Rhythm, Tachycardia Lungs: Positive: Normal Breath Sounds Neuro: Positive: Grossly Intact Abdomen: Positive: Soft Skin: Negative: Rash, Suspicious Lesions, Ulceration Extremities: Present: upper extr. pulses. Absent: edema - Labs and Meds Cardiac Enzymes 04/28/21 Range/Units 09:29 Lactate Dehydrogenase 287 H (91-180) units/L CBC 04/28/21 Range/Units 09:29 WBC 14.6 H (4.5-11.0) K/mm3 RBC 5.22 H (3.65-5.03) M/mm3 Hgb 14.1 (11.8-15.2) gm/dl Hct 45.7 H (35.5-45.6) % Plt Count 236 (140-440) K/mm3 Lymph # (Auto) 1.2 (1.2-5.4) K/mm3 Lamar # (Auto) 1.6 H (0.0-0.8) K/mm3 Eos # (Auto) 0.2 (0.0-0.4) K/mm3 Baso # (Auto) 0.0 (0.0-0.1) K/mm3 Comprehensive Metabolic Panel 04/28/21 Range/Units 09:29 Sodium 138 (137-145) mmol/L Potassium 3.8 (3.6-5.0) mmol/L Chloride 101.0 (98-107) mmol/L Carbon Dioxide 22 (22-30) mmol/L BUN 21 H (9-20) mg/dL Creatinine 2.1 H (0.8-1.3) mg/dL Glucose 347 H (75-100) mg/dL Calcium 8.9 (8.4-10.2) mg/dL - Imaging and Cardiology EKG: report reviewed, image reviewed Echo: report reviewed - Telemetry EKG Rhythm: Sinus Tachycardia - EKG Sinus rhythms and dysrhythmias: sinus rhythm, sinus tachycardia
[2021-04-28] MEDS: ASPIRIN 325 MG TAB PO SCH (13:49)
[2021-04-28] MEDS: AMIODARONE 200 MG TAB PO SCH ×2 (13:50→21:57)
[2021-04-28] MEDS: LANSOPRAZOLE 30 MG SOLUTAB FEEDTUBE SCH (13:50)
[2021-04-28] MEDS: FOLIC ACID 1 MG TAB PO SCH (13:50)
[2021-04-28 14:20] LABS: Hematocrit 45.3 % (35.5-45.6); Hemoglobin 14.3 gm/dl (11.8-15.2); Mean Corpuscular HGB Conc 32 % (32-34); Mean Corpuscular Volume 87 fl (84-94); Platelet Count 245 K/mm3 (140-440); Red Blood Count 5.18 M/mm3 (3.65-5.03); Red Cell Distribution Width 13.3 % (13.2-15.2)
[2021-04-28 14:39] LABS: INR 0.98 (0.87-1.13)
[2021-04-28 14:40] LABS: Partial Thromboplastin Time 31.8 Sec. (24.2-36.6)
--- NOTE | 2021-04-28 14:54 | Progress Note ---
Assessment and Plan Assessment and plan: #Fever Febrile to 102.2 last night Ordered the blood culture and urinalysis and coronavirus PCR Starting vancomycin loading dose 15 mg/kilogram and Rocephin 2 g every 24 hours If patient remains hemodynamically stable, afebrile, and negative blood cultures x48 hours, antibiotics will be discontinued. #Acute CVA Continue aspirin 325 mg daily Lipitor 40 mg daily. Holding on anticoagulation until after PEG placement. Neurology consulted; appreciate recs TTE revealing EF 45-50% with hypokinesis of the basal inferior septal wall, hypokinesis of the inferior wall. No PFO was detected. Physical therapy/Occupational Therapy recommended subacute rehab Continue to monitor #Atrial fibrillation with RVR (new onset) Cardiology consulted; appreciate recs Eliquis 5 mg twice daily will be initiated 04/29/2021 (approximately 24 hours after PEG placement) Continue metoprolol tartrate 50 mg 3 times daily for rate control. Continue p.o. amiodarone 200 mg twice daily. #Dysphagia PEG placed by GI on 04/28/2021 Patient's daughter (Soniya Mabry at [phone]) agrees significant for PEG tube placement. Discussed with daughter at length about overall goals of care. #Advanced care planning -Disease education conducted, care plan discussed, diagnoses discussed, prognosis discussed, and patient acknowledges understanding with care plan -Time: +60 min #Discharge planning - Patient is pending subacute rehab placement - Case management has been made aware. #Social -Case management was able to locate the patient's daughter (Soniya Mabry at [phone]). Physician had discussion at length about the current hospital stay and overall long-term prognosis. Patient's family primarily lives in [place]. Patient no longer has family that lives in the state [facility]. His close friend (since childhoodMark) is the closest "family" that he has with conditions. Daughter will be speaking to the rest the family about his [facility] housing situation. Patient is unable to stay with his daughter due to limited physical space in the home (approximately 650 square feet). Disposition Plan: Pending dispo placement Total Time Spent with Patient (Minutes): 45 minutes History Interval history: No acute events overnight. Hospitalist Physical - Constitutional Vitals: Temp Pulse Resp BP Pulse Ox 97.8 F 135 H 18 152/72 100 04/28/21 10:51 01/31/22 11:15 04/28/21 11:15 04/28/21 11:15 04/28/21 11:15 General appearance: Present: no acute distress, well-nourished - EENT Eyes: Present: PERRL, EOM intact ENT: hearing intact, clear oral mucosa, other (NG tube in place) - Neck Neck: Present: supple, normal ROM - Respiratory Respiratory effort: normal Respiratory: bilateral: CTA - Cardiovascular Rhythm: irregularly irregular Heart Sounds: Present: S1 & S2 - Extremities Extremities: no ischemia, pulses intact, pulses symmetrical, No edema, normal temperature, normal color Peripheral Pulses: within normal limits - Abdominal General gastrointestinal: soft, non-tender, non-distended, normal bowel sounds - Integumentary Integumentary: Present: clear, warm, dry - Psychiatric Psychiatric: other (Unable to assess given neurological status) - Neurologic Neurologic: other (Unable to assess given neurological status) - Allied Health Allied health notes reviewed: nursing HEART Score - HEART Score Troponin: Troponin T 0.011 ng/mL (0.00-0.029) 04/20/21 17:44 Results - Labs CBC & Chem 7: 04/28/21 13:53 04/28/21 09:29 Labs: Laboratory Last Values WBC 13.4 K/mm3 (4.5-11.0) H 04/28/21 13:53 RBC 5.18 M/mm3 (3.65-5.03) H 04/28/21 13:53 Hgb 14.3 gm/dl (11.8-15.2) 04/28/21 13:53 Hct 45.3 % (35.5-45.6) 04/28/21 13:53 MCV 87 fl (84-94) 04/28/21 13:53 MCH 28 pg (28-32) 04/28/21 13:53 MCHC 32 % (32-34) 04/28/21 13:53 RDW 13.3 % (13.2-15.2) 04/28/21 13:53 Plt Count 245 K/mm3 (140-440) 04/28/21 13:53 Lymph % (Auto) 7.9 % (13.4-35.0) L 04/28/21 09:29 [place] % (Auto) 10.7 % (0.0-7.3) H 04/28/21 09:29 Eos % (Auto) 1.1 % (0.0-4.3) 04/28/21 09:29 Baso % (Auto) 0.2 % (0.0-1.8) 04/28/21 09:29 Lymph # (Auto) 1.2 K/mm3 (1.2-5.4) 04/28/21 09:29 [place] # (Auto) 1.6 K/mm3 (0.0-0.8) H 04/28/21 09:29 Eos # (Auto) 0.2 K/mm3 (0.0-0.4) 04/28/21 09:29 Baso # (Auto) 0.0 K/mm3 (0.0-0.1) 04/28/21 09:29 Seg Neutrophils % 80.1 % (40.0-70.0) H 04/28/21 09:29 Seg Neutrophils # 11.7 K/mm3 (1.8-7.7) H 04/28/21 09:29 PT 14.1 Sec. (12.2-14.9) 04/28/21 13:53 INR 0.98 (0.87-1.13) 04/28/21 13:53 APTT 31.8 Sec. (24.2-36.6) 04/28/21 13:53 Thrombin Time 16.2 Sec. (15.1-19.6) 04/20/21 17:44 D-Dimer 894.94 ng/mlDDU (0-234) H 04/28/21 09:29 Sodium 138 mmol/L (137-145) 04/28/21 09:29 Potassium 3.8 mmol/L (3.6-5.0) 04/28/21 09:29 Chloride 101.0 mmol/L (98-107) 04/28/21 09:29 Carbon Dioxide 22 mmol/L (22-30) 04/28/21 09:29 Anion Gap 19 mmol/L 04/28/21 09:29 BUN 21 mg/dL (9-20) H 04/28/21 09:29 Creatinine 2.1 mg/dL (0.8-1.3) H 04/28/21 09:29 Estimated GFR 39 ml/min 04/28/21 09:29 BUN/Creatinine Ratio 10 % 04/28/21 09:29 Glucose 347 mg/dL (75-100) H 04/28/21 09:29 POC Glucose 328 mg/dL (70-105) H 04/28/21 12:19 Calcium 8.9 mg/dL (8.4-10.2) 04/28/21 09:29 Magnesium 1.90 mg/dL (1.7-2.3) 04/20/21 17:44 Ferritin 1157.0 ng/mL (30.0-300.0) H 04/28/21 09:29 Total Bilirubin 0.40 mg/dL (0.1-1.2) 04/20/21 17:44 AST 19 units/L (5-40) 04/20/21 17:44 ALT 35 units/L (7-56) 04/20/21 17:44 Alkaline Phosphatase 73 units/L (35-129) 04/20/21 17:44 Lactate Dehydrogenase 287 units/L (91-180) H 04/28/21 09:29 Total Creatine Kinase 79 units/L (55-170) 04/20/21 17:44 Total Creatine Kinase 81 units/L (55-170) 04/20/21 17:44 CK-MB (CK-2) 2.1 ng/mL (0.0-4.0) 04/20/21 17:44 CK-MB (CK-2) Rel Index 2.6 (0-4) 04/20/21 17:44 Troponin T 0.011 ng/mL (0.00-0.029) 04/20/21 17:44 C-Reactive Protein 15.40 mg/dL (0.00-1.30) H 04/28/21 09:29 Total Protein 7.0 g/dL (6.3-8.2) 04/20/21 17:44 Albumin 4.1 g/dL (3.9-5) 04/20/21 17:44 Albumin/Globulin Ratio 1.4 % 04/20/21 17:44 TSH 1.040 mlU/mL (0.270-4.200) 04/20/21 19:42 Free T4 1.16 ng/dL (0.76-1.46) 04/20/21 19:42 Urine Color Saira (Yellow) 04/26/21 Unknown Urine Turbidity Cloudy (Clear) 04/26/21 Unknown Urine pH 5.0 (5.0-7.0) 04/26/21 Unknown Ur Specific Driver 1.020 (1.003-1.030) 04/26/21 Unknown Urine Protein 100 mg/dl mg/dL (Negative) 04/26/21 Unknown Urine Glucose (UA) >=500 mg/dL (Negative) 04/26/21 Unknown Urine Ketones Neg mg/dL (Negative) 04/26/21 Unknown Urine Blood Mod (Negative) 04/26/21 Unknown Urine Nitrite Neg (Negative) 04/26/21 Unknown Urine Bilirubin Neg (Negative) 04/26/21 Unknown Urine Urobilinogen 2.0 mg/dL (<2.0) 04/26/21 Unknown Ur Leukocyte Esterase Neg (Negative) 04/26/21 Unknown Urine WBC (Auto) 1.0 /HPF (0.0-6.0) 04/20/21 18:19 Urine RBC (Auto) 3.0 /HPF (0.0-6.0) 04/20/21 18:19 U Epithel Cells (Auto) < 1.0 /HPF (0-13.0) 04/20/21 18:19 Hyaline Casts 5 /LPF 04/20/21 18:19 Urine Mucus Few /HPF 04/20/21 18:19 Plasma/Serum Alcohol < 0.01 % (0-0.07) 04/20/21 17:44 Coronavirus (PCR) Positive (Negative) A 04/27/21 09:00 Microbiology: Microbiology 04/26/21 08:31 Peripheral/Venous Blood Culture - Preliminary NO GROWTH AFTER 48 HOURS 04/26/21 08:31 Peripheral/Venous Blood Culture - Preliminary NO GROWTH AFTER 48 HOURS Bravo/IV: Voiding Method Condom Catheter Active Medications - Current Medications Current Medications: Generic Name Dose Route Start Last Admin Trade Name Freq PRN Reason Stop Dose Admin Acetaminophen 650 mg 04/20/21 18:41 04/27/21 22:59 Acetaminophen 325 Mg Tab PO 650 mg Q4H PRN Administration Pain, Mild (1-3) Albuterol 2.5 mg 04/20/21 18:41 Albuterol 2.5 Mg/3 Ml Nebu IH Q3HRT PRN Shortness Of Breath Amiodarone HCl 200 mg 04/24/21 11:00 04/27/21 23:00 Amiodarone 200 Mg Tab PO 200 mg BID NAMAN Administration Lipase/Protease/Amylase 1 each 04/25/21 15:16 Lipase 10,500/Protease 25,000/Amylase 43,750 (Units) Dr Willingham FEEDTUBE PRN PRN For Clogged Feeding Tube Apixaban 5 mg 04/29/21 10:00 Apixaban 5 Mg Tab PO Q12HR [facility] Protocol Aspirin 325 mg 04/21/21 10:00 04/27/21 10:01 Aspirin 325 Mg Tab PO 325 mg QDAY NAMAN Administration Atorvastatin Calcium 40 mg 04/20/21 22:00 04/27/21 23:00 Atorvastatin 40 Mg Tab PO 40 mg QHS NAMAN Administration Bisacodyl 10 mg 04/20/21 18:41 Bisacodyl 10 Mg Rect Supp [place] QDAY PRN Constipation Cyclobenzaprine HCl 10 mg 04/20/21 19:00 04/24/21 12:36 Cyclobenzaprine 10 Mg Tab PO 10 mg TID PRN Administration Muscle Spasm Dextrose 0 ml 04/27/21 04:03 Dextrose 10% *Hypoglycemia IV PRN PRN Hypoglycemia Protocol Folic Acid 1 mg 04/20/21 18:59 04/27/21 10:01 Folic Acid 1 Mg Tab PO 1 mg QDAY NAMAN Administration Hydromorphone HCl 0.5 mg 04/20/21 18:41 04/22/21 16:30 Hydromorphone 1 Mg/1 Ml Inj IV 0.5 mg Q6H PRN Administration Pain , Severe (7-10) Dextrose 1,000 mls @ 125 mls/hr 04/25/21 08:00 04/27/21 22:59 D5w IV 125 mls/hr DIRECT NAMAN Administration Insulin Human Lispro 0 unit 04/27/21 04:00 04/28/21 05:58 Insulin Lispro 100 Unit/Ml SUB-Q Not Given Q6HR [facility] Protocol Lansoprazole 30 mg 04/28/21 11:00 Lansoprazole 30 Mg Solutab FEEDTUBE QDAY NAMAN Lorazepam 2 mg 04/20/21 18:44 04/25/21 16:30 Lorazepam 2 Mg/Ml Vial IV 2 mg Q1HR PRN Administration CIWA-Ar 8-15 Magnesium Hydroxide 30 ml 04/20/21 18:41 Magnesium Hydroxide (Mom) Oral Liqd Udc PO Q4H PRN Constipation Metoclopramide HCl 10 mg 04/20/21 18:41 Metoclopramide 10 Mg Tab PO Q6H PRN Nausea And Vomiting Metoprolol Tartrate 50 mg 04/25/21 10:00 04/28/21 08:06 Metoprolol Tartrate 50 Mg Tab PO Not Given TID NAMAN Ondansetron HCl 4 mg 04/20/21 18:41 Ondansetron 4 Mg/2 Ml Inj IV Q8H PRN Nausea And Vomiting Oxycodone/Acetaminophen 1 tab 04/20/21 18:41 04/26/21 03:28 Oxycodone /Acetaminophen 5-325mg Tab PO 1 tab Q12H PRN Administration Pain, Moderate (4-6) Promethazine HCl 25 mg 04/20/21 18:41 Promethazine 25 Mg Rect Supp [place] Q6H PRN Nausea And Vomiting Simple Syrup 15 ml 04/25/21 15:16 Simple Syrup 15 Ml FEEDTUBE PRN PRN Hypoglycemia Simple Syrup 30 ml 04/25/21 15:16 Simple Syrup 15 Ml FEEDTUBE PRN PRN Hypoglycemia Sodium Bicarbonate 325 mg 04/25/21 15:16 Sodium Bicarbonate 325 Mg Tab FEEDTUBE PRN PRN For Clogged Feeding Tube Sodium Chloride 10 ml 04/20/21 18:41 04/25/21 22:44 Sodium Chloride 0.9% 10 Ml Flush Syringe IV 10 ml PRN PRN Administration LINE FLUSH Nutrition/Malnutrition Assess - Dietary Evaluation Nutrition/Malnutrition Findings: Nutrition Notes Start: 04/23/21 12:36 Freq: Status: Active Protocol: Document 04/25/21 16:30 ANNIKA (Rec: 04/25/21 16:42 ANNIKA [id number]) Nutrition Notes Initial or Follow up Reassessment Current Diagnosis Hypertension,Stroke Other Pertinent Diagnosis Atrial Fibrilation w/RVR, EtOH & Tobacco dependence. Current Diet TF-Jevity 1.2 Maurice @ 68 ml/hr ( since D 04/25). Labs/Tests 04/25: Na 150, Cl 112.9, Glu 192. Pertinent Medications 04/25: D5w 1000 ml @ 125 ml/hr , Folic acid, others nutritionally unremarkable. Height 6 ft 3 in Weight 79.5 kg [place] Body Weight (kg) 89.09 BMI 21.9 Weight Status Appropriate Subjective/Other Information RD consult on MD's TF write/ manage request. EGD/PEG rescheduled for 04/28. resume TF until 04/28 00:01, then NPO. Percent of energy/protein needs met: Prescribed Jevity 1.2 Maurice @ 68 ml/hr provides for energy/ protein needs (1,804 Kcal/77 g ) during LOS, 91% Kcal; 100% AA. Burn Absent Trauma Absent GI Symptoms None Food Allergy No Skin Integrity/Comment Clear, warm, dry. Current % PO Other Minimum of two criteria No #1 Nutrition Diagnosis Inadequate oral intake Diagnosis Progress(for reassessment Continues documentation) Is patient on ventilator? No Is Patient Ambulatory and/or Out of Bed No REE-([facility]-confined to bed) 2020.748 Calculation Used for Recommendations [facility] Additional Notes Protein: 0.8-1 g/Kg; 73-91 g/ day. Fluids: 1 ml/Kcal, or as per MD. Nutrition Intervention Nutrition Support: Resume Jevity 1.2 Maurcie @ 68 ml/ hr. Flush: 150 ml water Q 4 hr, or as per MD. Kcal 1,960 Protein (gm) 91 Carbohydrates (gm) 277 Fat (gm) 64 Fluid (mL) 1,318 Fiber (gm) 29 % RDI: 91% Kcal; 100% AA. Goal #1 Provide at least 75% of energy /protein needs through Enteral Feeding during LOS. Goal #2 Maintain body weight within +/ -3% of admission body weight during LOS. Follow-Up By: 04/29/21 Additional Comments When pertinent, continue monitoring TF tolerance and BM .
[2021-04-28] MEDS: LORazepam 2 MG/ML VIAL IV PRN ×2 (16:15→23:41)
[2021-04-28] MEDS: oxyCODONE /ACETAMINOPHEN 5-325MG TAB PO PRN (18:05)
[2021-04-28] MEDS ORDERED: SODIUM CHLORIDE 0.9% 50 ML ONE (21:30)
[2021-04-29] MEDS: DEXTROSE 5% IN WATER 1,000 ML IV SCH ×3 (00:12→17:09)
[2021-04-29] MEDS: INSULIN LISPRO 100 UNIT/ML SUB-Q SCH ×4 (00:14→18:33)
--- NOTE | 2021-04-29 08:26 | Gastroenterology Progress Note ---
Assessment and Plan PEG tube was checked Appearance good May use for feeding and all purposes GI will sign off please call us back if we can be of any further assistance - Patient Problems (1) Dysphagia Current Visit: Yes Status: Acute (2) Atrial fibrillation with RVR Current Visit: Yes Status: Acute (3) CVA (cerebral vascular accident) Current Visit: Yes Status: Acute Subjective Date of service: 04/29/21 Principal diagnosis: CVA Interval history: Patient unable to provide good history Objective - Constitutional Vitals: Temp Pulse Resp BP Pulse Ox 99.3 F 71 20 139/83 97 04/29/21 05:45 04/29/21 05:45 04/29/21 05:45 04/29/21 05:45 04/29/21 07:34 General appearance: no acute distress - Respiratory Respiratory effort: normal - Gastrointestinal General gastrointestinal: Present: soft, non-tender, other (Loosened bumper on the PEG tube to 3.5 cm. No cellulitis edema erythema or induration surrounding the PEG tube site) - Labs CBC & Chem 7: 04/28/21 13:53 04/28/21 13:53 Labs: Laboratory Results - last 24 hr 04/28/21 04/28/21 04/28/21 09:29 09:29 09:29 WBC 14.6 H RBC 5.22 H Hgb 14.1 Hct 45.7 H MCV 88 MCH 27 L MCHC 31 L RDW 13.4 Plt Count 236 Lymph % (Auto) 7.9 L [place] % (Auto) 10.7 H Eos % (Auto) 1.1 Baso % (Auto) 0.2 Lymph # (Auto) 1.2 [place] # (Auto) 1.6 H Eos # (Auto) 0.2 Baso # (Auto) 0.0 Seg Neutrophils % 80.1 H Seg Neutrophils # 11.7 H PT INR APTT D-Dimer 894.94 H Sodium 138 Potassium 3.8 Chloride 101.0 Carbon Dioxide 22 Anion Gap 19 BUN 21 H Creatinine 2.1 H Estimated GFR 39 BUN/Creatinine Ratio 10 Glucose 347 H POC Glucose Calcium 8.9 Ferritin Lactate Dehydrogenase 287 H C-Reactive Protein 15.40 H 04/28/21 04/28/21 04/28/21 09:29 12:19 13:53 WBC 13.4 H RBC 5.18 H Hgb 14.3 Hct 45.3 MCV 87 MCH 28 MCHC 32 RDW 13.3 Plt Count 245 Lymph % (Auto) [place] % (Auto) Eos % (Auto) Baso % (Auto) Lymph # (Auto) [place] # (Auto) Eos # (Auto) Baso # (Auto) Seg Neutrophils % Seg Neutrophils # PT INR APTT D-Dimer Sodium Potassium Chloride Carbon Dioxide Anion Gap BUN Creatinine Estimated GFR BUN/Creatinine Ratio Glucose POC Glucose 328 H Calcium Ferritin 1157.0 H Lactate Dehydrogenase C-Reactive Protein 04/28/21 04/28/21 04/28/21 13:53 13:53 16:52 WBC RBC Hgb Hct MCV MCH MCHC RDW Plt Count Lymph % (Auto) [place] % (Auto) Eos % (Auto) Baso % (Auto) Lymph # (Auto) [place] # (Auto) Eos # (Auto) Baso # (Auto) Seg Neutrophils % Seg Neutrophils # PT 14.1 INR 0.98 APTT 31.8 D-Dimer Sodium Potassium Chloride Carbon Dioxide Anion Gap BUN Creatinine 2.2 H Estimated GFR 37 BUN/Creatinine Ratio Glucose POC Glucose 309 H Calcium Ferritin Lactate Dehydrogenase C-Reactive Protein 04/28/21 04/29/21 22:34 05:42 WBC RBC Hgb Hct MCV MCH MCHC RDW Plt Count Lymph % (Auto) [place] % (Auto) Eos % (Auto) Baso % (Auto) Lymph # (Auto) [place] # (Auto) Eos # (Auto) Baso # (Auto) Seg Neutrophils % Seg Neutrophils # PT INR APTT D-Dimer Sodium Potassium Chloride Carbon Dioxide Anion Gap BUN Creatinine Estimated GFR BUN/Creatinine Ratio Glucose POC Glucose 167 H 211 H Calcium Ferritin Lactate Dehydrogenase C-Reactive Protein
[2021-04-29] MEDS: AMIODARONE 200 MG TAB PO SCH ×2 (09:07→22:06)
[2021-04-29] MEDS: ASPIRIN 325 MG TAB PO SCH (09:07)
[2021-04-29] MEDS: APIXABAN 5 MG TAB PO SCH ×2 (09:07→22:06)
[2021-04-29] MEDS: FOLIC ACID 1 MG TAB PO SCH (09:07)
[2021-04-29] MEDS: METOPROLOL TARTRATE 50 MG TAB PO SCH ×3 (09:07→23:09)
[2021-04-29] MEDS: LANSOPRAZOLE 30 MG SOLUTAB FEEDTUBE SCH (09:07)
--- NOTE | 2021-04-29 11:16 | Progress Note ---
Assessment and Plan Patient is 61-year-old male past medical history of CVH with LHP, nicotine dependence, EtOH dependence who presented to the ED with a complaint of left- sided weakness and difficulty speaking x 2days CVA Afib w/RVR(new onset) Etoh abuse NSVT Echo 04/20/2021-EF 45 to 50%, left ventricular systolic function is borderline. There is hypokinesis of basal inferior septal wall. Hypokinesis inferior wall. Right ventricle systolic function is normal. Bubble study did not demonstrate PFO. Plan: Continue amiodarone 200 mg p.o. twice daily Patient still having episodes of NSVT. Increase to metoprolol 100 mg p.o. BID, Continue aspirin, and Lipitor Recommend resuming anticoagulation with Eliquis once cleared by GI postprocedure Patient seen in conjunction with Dr. Samuels who agrees with this plan of care - Patient Problems (1) Alcohol dependence Current Visit: Yes Status: Acute (2) Atrial fibrillation with RVR Current Visit: Yes Status: Acute (3) CVA (cerebral vascular accident) Current Visit: Yes Status: Acute (4) Elevated blood pressure reading Current Visit: Yes Status: Acute (5) Nicotine dependence Current Visit: Yes Status: Acute Qualifiers: Nicotine product type: cigarettes Substance use status: in withdrawal Qualified Code(s): F17.213 - Nicotine dependence, cigarettes, with withdrawal (6) Stroke Current Visit: Yes Status: Acute Subjective Date of service: 04/29/21 Principal diagnosis: CVA Interval history: Patient s/p PEG placement Patient 80s-90s on monitor with episodes of NSVT Objective Vital Signs Temp Pulse Pulse Resp BP Pulse Ox 04/29/21 07:34 97 04/29/21 05:45 99.3 F 71 20 139/83 98 04/29/21 00:00 71 112 H 100 04/28/21 22:35 99.0 F 72 18 119/74 97 04/28/21 21:56 112 H 100/80 04/28/21 16:24 97.9 F 87 20 142/95 100 04/28/21 12:23 97.7 F 72 20 135/79 96 04/28/21 12:00 18 95 - Physical Examination General: No Apparent Distress, Other HEENT: Positive: Normocephaly Neck: Positive: trachea midline Cardiac: Positive: Reg Rate and Rhythm Lungs: Positive: Normal Breath Sounds Neuro: Positive: Grossly Intact Abdomen: Positive: Soft Skin: Negative: Rash, Suspicious Lesions, Ulceration Extremities: Present: upper extr. pulses. Absent: edema - Labs and Meds Coagulation 04/28/21 Range/Units 13:53 PT 14.1 (12.2-14.9) Sec. INR 0.98 (0.87-1.13) APTT 31.8 (24.2-36.6) Sec. CBC 04/28/21 Range/Units 13:53 WBC 13.4 H (4.5-11.0) K/mm3 RBC 5.18 H (3.65-5.03) M/mm3 Hgb 14.3 (11.8-15.2) gm/dl Hct 45.3 (35.5-45.6) % Plt Count 245 (140-440) K/mm3 Comprehensive Metabolic Panel 04/28/21 Range/Units 13:53 Creatinine 2.2 H (0.8-1.3) mg/dL - Imaging and Cardiology EKG: report reviewed, image reviewed Echo: report reviewed - Telemetry EKG Rhythm: Sinus Rhythm - EKG Sinus rhythms and dysrhythmias: sinus rhythm, sinus tachycardia Ventricular dysrhythmias: non-sustained ventricular
--- NOTE | 2021-04-29 14:52 | Progress Note ---
Assessment and Plan Patient is 61-year-old male past medical history of CVH with LHP, nicotine dependence, EtOH dependence who presented to the ED with a complaint of worsening left-sided weakness and difficulty speaking for 2 days. Patient was transported to [facility] where a code stroke was initiated. Patient was also discovered to be in new onset A. fib with RVR. Patient converted with IV Cardizem to sinus rhythm. Admitted for further mx. Assessment and plan #Fever/covid 19 positive patient on RA, blood cx neg cont to follow clinically with monitoring inflammatory markers #Acute CVA, suspected -CT with extensive microvascular changes Continue aspirin 325 mg daily Lipitor 40 mg daily. Neurology consulted; appreciate recs TTE revealing EF 45-50% with hypokinesis of the basal inferior septal wall, hypokinesis of the inferior wall. No PFO was detected. Physical therapy/Occupational Therapy recommended subacute rehab Continue to monitor, MRI brain pending, neuro eval pending #Atrial fibrillation with RVR (new onset) Cardiology consulted; appreciate recs Eliquis 5 mg twice daily Continue metoprolol tartrate 50 mg 3 times daily for rate control. -Continue amiodarone 200 mg twice daily. #Dysphagia PEG placed by GI on 04/28/2021 Patient's daughter (Soniya Mabry at [phone]) agrees significant for PEG tube placement. -Discussed with daughter at length about overall goals of care. #Advanced care planning -Disease education conducted, care plan discussed, diagnoses discussed, prognosis discussed, and patient acknowledges understanding with care plan -Time: +60 min #Discharge planning - Patient is pending subacute rehab placement - Case management has been made aware. #Social -Case management was able to locate the patient's daughter (Soniya Mabry at [phone]). Physician had discussion at length about the current hospital stay and overall long-term prognosis. Patient's family primarily lives in [place]. Patient no longer has family that lives in the state of [place]. His close friend (since childhoodMark) is the closest "family" that he has with conditions. Daughter will be speaking to the rest the family about his overall housing situation. Patient is unable to stay with his daughter due to limited physical space in the home (approximately 650 square feet). Disposition Plan: Pending dispo placement Daily clinical course: 04/29: Resumed care. 61 y/o male presented with slurred speech, left sided weakness clinically no change, Order for TF, resumed eliquis, wait for CM to arrange placement. PT recommended JACINDA. Subjective Date of service: 04/29/21 Principal diagnosis: CVA Interval history: Patient seen and examined. Medical records and medication list reviewed. No acute event overnight noted by the RN. Patient had PEG yesterday. Nonverbal with leftsided hameparesis Discussed plan of care at bedside with patient's RN . Objective - Exam Narrative Exam: General appearance: Present: no acute distress, well-nourished - EENT Eyes: Present: PERRL, EOM intact ENT: hearing intact, clear oral mucosa, other (NG tube in place) - Neck Neck: Present: supple, normal ROM - Respiratory Respiratory effort: normal Respiratory: bilateral: CTA - Cardiovascular Rhythm: irregularly irregular Heart Sounds: Present: S1 & S2 - Extremities Extremities: no ischemia, pulses intact, pulses symmetrical, No edema, normal temperature, normal color Peripheral Pulses: within normal limits - Abdominal General gastrointestinal: soft, non-tender, non-distended, normal bowel sounds - Integumentary Integumentary: Present: clear, warm, dry - Psychiatric Psychiatric: other (Unable to assess given neurological status) - Neurologic Neurologic: other (Unable to assess given neurological status), nonverbal, left > right - Allied Health Allied health notes reviewed: nursing - Constitutional Vitals: Vital Signs - 12hr 04/29/21 04/29/21 05:45 07:34 Temperature 99.3 F Pulse Rate 71 Respiratory 20 Rate Blood Pressure 139/83 O2 Sat by Pulse 98 97 Oximetry - Labs CBC & Chem 7: 04/30/21 07:05 05/01/21 06:56 Labs: Abnormal lab results 04/28/21 04/28/21 04/28/21 Range/Units 13:53 16:52 22:34 Creatinine 2.2 H (0.8-1.3) mg/dL POC Glucose 309 H 167 H (70-105) mg/dL 04/29/21 04/29/21 Range/Units 05:42 11:53 Creatinine (0.8-1.3) mg/dL POC Glucose 211 H 199 H (70-105) mg/dL HEART Score - HEART Score Troponin: Troponin T 0.011 ng/mL (0.00-0.029) 04/20/21 17:44
[2021-04-30] MEDS: DEXTROSE 5% IN WATER 1,000 ML IV SCH ×3 (02:29→11:56)
[2021-04-30] MEDS: INSULIN LISPRO 100 UNIT/ML SUB-Q SCH ×5 (02:29→23:26)
[2021-04-30] MEDS ORDERED: SODIUM CHLORIDE 0.9% 50 ML ONE (04:28)
[2021-04-30] MEDS: hydrALAZINE 20 MG/1 ML INJ IV PRN (06:28)
[2021-04-30 07:12] LABS: Hematocrit 41.6 % (35.5-45.6); Hemoglobin 13.4 gm/dl (11.8-15.2); Mean Corpuscular HGB Conc 32 % (32-34); Mean Corpuscular Volume 85 fl (84-94); Platelet Count 269 K/mm3 (140-440); Red Cell Distribution Width 12.8 % (13.2-15.2)
[2021-04-30] MEDS: METOPROLOL TARTRATE 50 MG TAB PO SCH ×2 (09:59→23:26)
[2021-04-30] MEDS: AMIODARONE 200 MG TAB PO SCH (10:00)
[2021-04-30] MEDS: ASPIRIN 325 MG TAB PO SCH (10:00)
[2021-04-30] MEDS: LANSOPRAZOLE 30 MG SOLUTAB FEEDTUBE SCH (10:00)
[2021-04-30] MEDS: APIXABAN 5 MG TAB PO SCH ×2 (10:00→23:26)
[2021-04-30] MEDS: FOLIC ACID 1 MG TAB PO SCH (10:00)
--- NOTE | 2021-04-30 10:19 | Electrocardiograph Report ---
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
[2021-04-30] MEDS ORDERED: SODIUM BICARBONATE 325 MG TAB FEEDTUBE PRN (10:42)
[2021-04-30] MEDS ORDERED: SIMPLE SYRUP 15 ML FEEDTUBE PRN ×2 (10:42)
[2021-04-30] MEDS ORDERED: LIPASE 10,500/PROTEASE 25,000/AMYLASE 43,750 (UNITS) DR CAP FEEDTUBE PRN (10:42)
--- NOTE | 2021-04-30 14:34 | Progress Note ---
Assessment and Plan Patient is 61-year-old male past medical history of CVH with LHP, nicotine dependence, EtOH dependence who presented to the ED with a complaint of left- sided weakness and difficulty speaking x 2days CVA Afib w/RVR(new onset) Etoh abuse NSVT Echo 04/20/2021-EF 45 to 50%, left ventricular systolic function is borderline. There is hypokinesis of basal inferior septal wall. Hypokinesis inferior wall. Right ventricle systolic function is normal. Bubble study did not demonstrate PFO. Plan: Decrease to amiodarone 20 mg p.o. daily Patient did not have any SVT on monitor overnight continue metoprolol 100 mg p.o. BID, Continue aspirin, and Lipitor Anticoagulated on Eliquis Discussed case with radiator specialist. Even though patient has had episodes of NSVT patient is not a candidate for ICD. Recommend conservative management Patient seen in conjunction with Dr. Samuels who agrees with this plan of care - Patient Problems (1) Alcohol dependence Current Visit: Yes Status: Acute (2) Atrial fibrillation with RVR Current Visit: Yes Status: Acute (3) CVA (cerebral vascular accident) Current Visit: Yes Status: Acute (4) Elevated blood pressure reading Current Visit: Yes Status: Acute (5) Nicotine dependence Current Visit: Yes Status: Acute Qualifiers: Nicotine product type: cigarettes Substance use status: in withdrawal Qualified Code(s): F17.213 - Nicotine dependence, cigarettes, with withdrawal (6) Stroke Current Visit: Yes Status: Acute Subjective Date of service: 04/30/21 Principal diagnosis: CVA Interval history: Patient remains lethargic Patient 70s on monitor with no events Objective Vital Signs Temp Pulse Resp BP BP Pulse Ox 04/30/21 10:02 172/90 04/30/21 07:05 96 04/30/21 06:28 70 172/94 04/30/21 04:38 99.3 F 70 20 178/88 96 04/30/21 00:00 78 96 04/29/21 23:09 71 169/99 04/29/21 22:44 97.5 F L 72 28 H 106/73 98 04/29/21 22:35 98.4 F 71 20 169/99 98 - Physical Examination General: No Apparent Distress, Other HEENT: Positive: Normocephaly Neck: Positive: trachea midline Cardiac: Positive: Reg Rate and Rhythm Lungs: Positive: Normal Breath Sounds Neuro: Positive: Grossly Intact Abdomen: Positive: Soft Skin: Negative: Rash, Suspicious Lesions, Ulceration Extremities: Present: upper extr. pulses. Absent: edema - Labs and Meds CBC 04/30/21 Range/Units 07:05 WBC 13.7 H (4.5-11.0) K/mm3 RBC 4.90 (3.65-5.03) M/mm3 Hgb 13.4 (11.8-15.2) gm/dl Hct 41.6 (35.5-45.6) % Plt Count 269 (140-440) K/mm3 - Imaging and Cardiology EKG: report reviewed, image reviewed Echo: report reviewed - Telemetry EKG Rhythm: Sinus Rhythm - EKG Sinus rhythms and dysrhythmias: sinus rhythm Ventricular dysrhythmias: non-sustained ventricular
--- NOTE | 2021-04-30 15:50 | Progress Note ---
Assessment and Plan Patient is 61-year-old male past medical history of CVH with LHP, nicotine dependence, EtOH dependence who presented to the ED with a complaint of worsening left-sided weakness and difficulty speaking for 2 days. Patient was transported to [facility] where a code stroke was initiated. Patient was also discovered to be in new onset A. fib with RVR. Patient converted with IV Cardizem to sinus rhythm. Admitted for further mx. Assessment and plan #BHASKAR, monitor renal function, david vasomotor nephropathy #Fever/covid 19 positive patient on RA, blood cx neg cont to follow clinically with monitoring inflammatory markers #Acute CVA, suspected -CT with extensive microvascular changes Continue aspirin 325 mg daily Lipitor 40 mg daily. Neurology consulted; appreciate recs TTE revealing EF 45-50% with hypokinesis of the basal inferior septal wall, hypokinesis of the inferior wall. No PFO was detected. Physical therapy/Occupational Therapy recommended subacute rehab Continue to monitor, MRI brain pending, neuro eval pending #Atrial fibrillation with RVR (new onset) Cardiology consulted; appreciate recs Eliquis 5 mg twice daily Continue metoprolol tartrate 50 mg 3 times daily for rate control. -Continue amiodarone 200 mg twice daily. #Dysphagia PEG placed by GI on 04/28/2021 Patient's daughter (Soniya Mabry at [phone]) agrees significant for PEG tube placement. -Discussed with daughter at length about overall goals of care. #Advanced care planning -Disease education conducted, care plan discussed, diagnoses discussed, prognosis discussed, and patient acknowledges understanding with care plan -Time: +60 min #Discharge planning - Patient is pending subacute rehab placement - Case management has been made aware. #Social -Case management was able to locate the patient's daughter (Soniya Mabry at [phone]). Physician had discussion at length about the current hospital stay and overall long-term prognosis. Patient's family primarily lives in [place]. Patient no longer has family that lives in the state of [place]. His close friend (since childhoodMark) is the closest "family" that he has with conditions. Daughter will be speaking to the rest the family about his overall housing situation. Patient is unable to stay with his daughter due to limited physical space in the home (approximately 650 square feet). Disposition Plan: Pending dispo placement Daily clinical course: 04/29: Resumed care. 61 y/o male presented with slurred speech, left sided weakness clinically no change, Order for TF, resumed eliquis, wait for CM to arrange placement. PT recommended JACINDA. 04/30: Tolerating tube feeding, continue to follow renal function. Discussed with patient daughter about placement. Patient remains nonverbal with left-sided hemiparesis. MRI and neuro eval pending. Subjective Date of service: 04/30/21 Principal diagnosis: CVA Interval history: Patient seen and examined. Medical records and medication list reviewed. No acute event overnight noted by the RN. Patient tolerating tube feeding. Nonverbal with leftsided hameparesis Discussed plan of care at bedside with patient's RN . Called patient daughter and updated with all clinical details Objective - Exam Narrative Exam: General appearance: Present: no acute distress, well-nourished - EENT Eyes: Present: PERRL, EOM intact ENT: hearing intact, clear oral mucosa, other (NG tube in place) - Neck Neck: Present: supple, normal ROM - Respiratory Respiratory effort: normal Respiratory: bilateral: CTA - Cardiovascular Rhythm: irregularly irregular Heart Sounds: Present: S1 & S2 - Extremities Extremities: no ischemia, pulses intact, pulses symmetrical, No edema, normal temperature, normal color Peripheral Pulses: within normal limits - Abdominal General gastrointestinal: soft, non-tender, non-distended, normal bowel sounds - Integumentary Integumentary: Present: clear, warm, dry - Psychiatric Psychiatric: other (Unable to assess given neurological status) - Neurologic Neurologic: other (Unable to assess given neurological status), nonverbal, left > right - Allied Health Allied health notes reviewed: nursing - Constitutional Vitals: Vital Signs - 12hr 04/30/21 04/30/21 04/30/21 04:38 06:28 07:05 Temperature 99.3 F Pulse Rate 70 70 Respiratory 20 Rate Blood Pressure 178/88 172/94 Blood Pressure [Left] O2 Sat by Pulse 96 96 Oximetry 04/30/21 10:02 Temperature Pulse Rate Respiratory Rate Blood Pressure Blood Pressure 172/90 [Left] O2 Sat by Pulse Oximetry - Labs CBC & Chem 7: 04/30/21 07:05 05/01/21 06:56 Labs: Abnormal lab results 04/29/21 04/29/21 04/30/21 Range/Units 18:30 22:31 06:14 WBC (4.5-11.0) K/mm3 MCH (28-32) pg RDW (13.2-15.2) % POC Glucose 221 H 197 H 207 H (70-105) mg/dL 04/30/21 04/30/21 Range/Units 07:05 11:44 WBC 13.7 H (4.5-11.0) K/mm3 MCH 27 L (28-32) pg RDW 12.8 L (13.2-15.2) % POC Glucose 242 H (70-105) mg/dL HEART Score - HEART Score Troponin: Troponin T 0.011 ng/mL (0.00-0.029) 04/20/21 17:44
[2021-04-30 16:44] LABS: Calcium 9.1 mg/dL (8.4-10.2)
[2021-05-01] MEDS: INSULIN LISPRO 100 UNIT/ML SUB-Q SCH ×4 (06:01→23:13)
[2021-05-01] MEDS: hydrALAZINE 20 MG/1 ML INJ IV PRN (06:02)
[2021-05-01] MEDS: ASPIRIN 325 MG TAB PO SCH (09:43)
[2021-05-01] MEDS: APIXABAN 5 MG TAB PO SCH ×2 (09:43→21:28)
[2021-05-01] MEDS: LANSOPRAZOLE 30 MG SOLUTAB FEEDTUBE SCH (09:44)
[2021-05-01] MEDS: FOLIC ACID 1 MG TAB PO SCH (09:44)
[2021-05-01] MEDS: METOPROLOL TARTRATE 50 MG TAB PO SCH ×2 (09:44→21:28)
[2021-05-01] MEDS: AMIODARONE 200 MG TAB PO SCH (09:44)
[2021-05-01] MEDS: amLODIPine 10 MG TAB PO SCH (09:44)
[2021-05-01] MEDS: hydrALAZINE 100 MG TAB PO SCH ×2 (11:37→21:28)
--- NOTE | 2021-05-01 12:50 | Progress Note ---
Assessment and Plan Patient is 61-year-old male past medical history of CVH with LHP, nicotine dependence, EtOH dependence who presented to the ED with a complaint of left- sided weakness and difficulty speaking x 2days CVA Afib w/RVR(new onset) Etoh abuse NSVT Echo 04/20/2021-EF 45 to 50%, left ventricular systolic function is borderline. There is hypokinesis of basal inferior septal wall. Hypokinesis inferior wall. Right ventricle systolic function is normal. Bubble study did not demonstrate PFO. Plan: Continue amiodarone 20 mg p.o. daily Patient did not have any SVT on monitor overnight continue metoprolol 100 mg p.o. BID, Continue aspirin, and Lipitor Anticoagulated on Eliquis Discussed case with avionics systems integration specialist. Even though patient has had episodes of NSVT patient is not a candidate for ICD. Recommend conservative management Patient cardiac status otherwise stable. Will see as needed Patient may follow-up with our group after patient is discharged Patient seen in conjunction with Dr. Samuels who agrees with this plan of care - Patient Problems (1) Alcohol dependence Current Visit: Yes Status: Acute (2) Atrial fibrillation with RVR Current Visit: Yes Status: Acute (3) CVA (cerebral vascular accident) Current Visit: Yes Status: Acute (4) Elevated blood pressure reading Current Visit: Yes Status: Acute (5) Nicotine dependence Current Visit: Yes Status: Acute Qualifiers: Nicotine product type: cigarettes Substance use status: in withdrawal Qualified Code(s): F17.213 - Nicotine dependence, cigarettes, with withdrawal (6) Stroke Current Visit: Yes Status: Acute Subjective Date of service: 05/01/21 Principal diagnosis: CVA Interval history: Patient remains lethargic Patient high 50s-60s on monitor with no events Objective Vital Signs Temp Pulse Resp BP Pulse Ox 05/01/21 11:28 98.4 F 20 121/71 05/01/21 07:14 96 05/01/21 05:41 99.1 F 65 22 181/88 99 05/01/21 00:00 96 04/30/21 22:44 99.0 F 75 20 188/98 99 04/30/21 16:00 98.1 F 69 18 158/91 97 - Physical Examination General: No Apparent Distress, Other HEENT: Positive: Normocephaly Neck: Positive: trachea midline Cardiac: Positive: Reg Rate and Rhythm Lungs: Positive: Normal Breath Sounds Neuro: Positive: Grossly Intact Abdomen: Positive: Soft Skin: Negative: Rash, Suspicious Lesions, Ulceration Extremities: Present: upper extr. pulses. Absent: edema - Labs and Meds Comprehensive Metabolic Panel 04/30/21 05/01/21 Range/Units 15:09 06:56 Sodium 138 (137-145) mmol/L Potassium 3.7 (3.6-5.0) mmol/L Chloride 100.7 (98-107) mmol/L Carbon Dioxide 23 (22-30) mmol/L BUN 19 (9-20) mg/dL Creatinine 1.7 H 1.5 H (0.8-1.3) mg/dL Glucose 234 H (75-100) mg/dL Calcium 9.1 (8.4-10.2) mg/dL - Imaging and Cardiology EKG: report reviewed, image reviewed Echo: report reviewed - Telemetry EKG Rhythm: Sinus Rhythm - EKG Sinus rhythms and dysrhythmias: sinus rhythm Ventricular dysrhythmias: non-sustained ventricular
--- NOTE | 2021-05-01 14:59 | Progress Note ---
Assessment and Plan Patient is 61-year-old male past medical history of CVH with LHP, nicotine dependence, EtOH dependence who presented to the ED with a complaint of worsening left-sided weakness and difficulty speaking for 2 days. Patient was transported to [facility] where a code stroke was initiated. Patient was also discovered to be in new onset A. fib with RVR. Patient converted with IV Cardizem to sinus rhythm. Admitted for further mx. Assessment and plan #BHASKAR, monitor renal function, david vasomotor nephropathy #Fever/covid 19 positive patient on RA, blood cx neg cont to follow clinically with monitoring inflammatory markers #Acute CVA, suspected -CT with extensive microvascular changes Continue aspirin 325 mg daily Lipitor 40 mg daily. Neurology consulted; appreciate recs TTE revealing EF 45-50% with hypokinesis of the basal inferior septal wall, hypokinesis of the inferior wall. No PFO was detected. Physical therapy/Occupational Therapy recommended subacute rehab Continue to monitor, MRI brain pending, neuro eval pending #Atrial fibrillation with RVR (new onset) Cardiology consulted; appreciate recs Eliquis 5 mg twice daily Continue metoprolol tartrate 50 mg 3 times daily for rate control. -Continue amiodarone 200 mg twice daily. #Dysphagia PEG placed by GI on 04/28/2021 Patient's daughter (Soniya Mabry at [phone]) agrees significant for PEG tube placement. cont -Discussed with daughter at length about overall goals of care. #Advanced care planning -Disease education conducted, care plan discussed, diagnoses discussed, prognosis discussed, and patient acknowledges understanding with care plan -Time: +60 min #Discharge planning - Patient is pending subacute rehab placement - Case management has been made aware. #Social -Case management was able to locate the patient's daughter (Soniya Mabry at [phone]). Physician had discussion at length about the current hospital stay and overall long-term prognosis. Patient's family primarily lives in [place]. Patient no longer has family that lives in the state of [place]. His close friend (since childhoodMark) is the closest "family" that he has with conditions. Daughter will be speaking to the rest the family about his overall housing situation. Patient is unable to stay with his daughter due to limited physical space in the home (approximately 650 square feet). Disposition Plan: Pending dispo placement Daily clinical course: 2/1: Resumed care. 61 y/o male presented with slurred speech, left sided weakness clinically no change, Order for TF, resumed eliquis, wait for CM to arrange placement. PT recommended JACINDA. 04/30: Tolerating tube feeding, continue to follow renal function. Discussed with patient daughter about placement. Patient remains nonverbal with left-sided hemiparesis. MRI and neuro eval pending. 05/01; Renal function stable, cont free water with TF, Cont AC and rate control for atrial fib. waiting on placement. CM working on hospice if family agrees. will cont to follow. Subjective Date of service: 05/01/21 Principal diagnosis: CVA Interval history: Patient seen and examined. Medical records and medication list reviewed. No acute event overnight noted by the RN. Patient tolerating tube feeding. patient remains Nonverbal with leftsided hameparesis Discussed plan of care at bedside with patient's RN . Called patient daughter and updated with all clinical details Objective - Exam Narrative Exam: General appearance: Present: no acute distress, well-nourished - EENT Eyes: Present: PERRL, EOM intact ENT: hearing intact, clear oral mucosa, other (NG tube in place) - Neck Neck: Present: supple, normal ROM - Respiratory Respiratory effort: normal Respiratory: bilateral: CTA - Cardiovascular Rhythm: irregularly irregular Heart Sounds: Present: S1 & S2 - Extremities Extremities: no ischemia, pulses intact, pulses symmetrical, No edema, normal temperature, normal color Peripheral Pulses: within normal limits - Abdominal General gastrointestinal: soft, non-tender, non-distended, normal bowel sounds - Integumentary Integumentary: Present: clear, warm, dry - Psychiatric Psychiatric: other (Unable to assess given neurological status) - Neurologic Neurologic: other (Unable to assess given neurological status), nonverbal, left > right - Allied Health Allied health notes reviewed: nursing - Constitutional Vitals: Vital Signs - 12hr 05/01/21 05/01/21 05/01/21 05:41 07:14 11:28 Temperature 99.1 F 98.4 F Pulse Rate 65 Respiratory 22 20 Rate Blood Pressure 181/88 121/71 O2 Sat by Pulse 99 96 Oximetry - Labs CBC & Chem 7: 04/30/21 07:05 05/01/21 06:56 Labs: Abnormal lab results 04/30/21 04/30/21 04/30/21 Range/Units 15:09 16:48 22:40 Creatinine 1.7 H (0.8-1.3) mg/dL Glucose 234 H (75-100) mg/dL POC Glucose 210 H 217 H (70-105) mg/dL 05/01/21 05/01/21 05/01/21 Range/Units 05:37 06:56 11:28 Creatinine 1.5 H (0.8-1.3) mg/dL Glucose (75-100) mg/dL POC Glucose 246 H 237 H (70-105) mg/dL HEART Score - HEART Score Troponin: Troponin T 0.011 ng/mL (0.00-0.029) 04/20/21 17:44
[2021-05-01] MEDS ORDERED: SODIUM CHLORIDE 0.9% 1000 ML 1,000 ML IV SCH (15:00)
--- NOTE | 2021-05-01 20:33 | Magnetic Resonance Report ---
MR brain wo con INDICATION / CLINICAL INFORMATION: 61 years Male; possible CVA. TECHNIQUE: Multiplanar, multisequence MR images of the brain were obtained. Significant motion artifact. COMPARISON: CT-04/20/2021 FINDINGS: BRAIN / INTRACRANIAL CONTENTS: Acute/early subacute ischemic changes seen in the left SCA territory. No signs of hemorrhagic transformation. There is involvement of the left middle cerebellar peduncle. Findings also extend in the left posterolateral luba and left cerebral peduncle. Mild focal mass effe ct is seen. Otherwise, no acute hemorrhage, mass effect, midline shift, hydrocephalus, or acute, large territori al infarct. No chronic infarct or atrophy. There are moderate to marked, confluent areas of increased signal intensity on FLAIR imaging in the w garret matter of the cerebral hemispheres, as well as the gangliocapsular regions. These are nonspecifi c findings and may be related to microangiopathy (hypertension, diabetes, atherosclerosis), given the patient's age. Chronic pontine disease noted. Old corpus callosal injuries seen as well. CRANIOCERVICAL JUNCTION: No significant abnormality. VASCULAR FLOW-VOIDS: No significant abnormality. ORBITS: No significant abnormality of visualized orbits. SINUSES / MASTOIDS: Minimal mucosal thickening seen in the ethmoids. ADDITIONAL FINDINGS: None. IMPRESSION: 1. Ischemic changes in the left cerebellar hemisphere and brainstem, as described above. No definitiv e signs of hemorrhagic transformation. Signer Name: Rigoberto Villalobos MD, III Signed: 05/01/2021 8:29 PM Workstation Name: [id number]
[2021-05-02] MEDS: INSULIN LISPRO 100 UNIT/ML SUB-Q SCH ×4 (05:28→23:23)
[2021-05-02 07:27] LABS: Basophils # (Auto) 0.1 K/mm3 (0.0-0.1); Basophils % (Auto) 0.6 % (0.0-1.8); Eosinophils # (Auto) 0.5 K/mm3 (0.0-0.4); Eosinophils % (Auto) 3.4 % (0.0-4.3); Hematocrit 44.9 % (35.5-45.6); Lymphocytes # (Auto) 1.5 K/mm3 (1.2-5.4); Lymphocytes % (Auto) 11.5 % (13.4-35.0); Mean Corpuscular HGB Conc 31 % (32-34); Mean Corpuscular Volume 87 fl (84-94); Monocytes # (Auto) 1.7 K/mm3 (0.0-0.8); Monocytes % (Auto) 12.6 % (0.0-7.3); Platelet Count 425 K/mm3 (140-440); Red Blood Count 5.18 M/mm3 (3.65-5.03); Red Cell Distribution Width 13.5 % (13.2-15.2)
[2021-05-02 07:48] LABS: Calcium 9.6 mg/dL (8.4-10.2)
--- NOTE | 2021-05-02 09:05 | Consultation ---
History of Present Illness Consult date: 05/02/21 Reason for Consult: Right side weakness since 04/20/21,New onset AF/aphasia History of present illness: My left side feels weak and it is hard to talk History of present illness: 61 YO Male with CVA with LHP, Nicotine Dependence, ETOH Dependence presents to ED for evaluation. Patient reports "my right side is weak and it is hard to talk". Patient states that he experienced sudden onset right arm and leg weakness and slurred speech 2 days ago with persistent symptoms over the same timeframe. Patient states that he waited for symptoms to improve and notified EMS after no improvement over the past 2 days. EMS was notified today and upon arrival the patient was found to be in distress with a focal neurologic deficit. A code stroke was called and the patient was subsequently transported to [facility] for further care and evaluation of the aforementioned symptoms. The patient was seen and evaluated in the emergency department. All lab and imaging studies reviewed. The patient was found to have a focal neurologic deficit. A code stroke was called and teleneurology consulted. The patient was found to have symptoms consistent with CVA as well as new onset atrial fibrillation with rapid ventricular response. The patient was treated with medical cardioversion with normalization of heart rate. The patient was placed in observation status and admitted to medical floor and initiated on CVA protocol. Patient denies fever, chills, chest pain, palpitations, productive cough, skin rash, recent contact, known exposure to COVID-19. Patient is vaccinated against COVID-19. No prior admission for review. All medication listed at time of admission has been reconciled. Advanced care planning conducted in ED. CHADS 2Vasc Score: 2 Neurology consulted for evaluation of above, and aphasia , Ct brain on 04/20 was remarkable for angiopathy MRI brain is remarkable for subacute left cerebellar and brain stem involvement mostly [place] he is currently on Eliquis ,ASA and Lipitor . Peg tube feeding started due to significant dysphagia echo is with mild diastolic dysfunction and Ef#45-50% Past History Past Medical History: other (See HPI) Past Surgical History: appendectomy Social history: smoking, alcohol abuse Family history: hypertension Medications and Allergies Allergies Allergy/AdvReac Type Severity Reaction Status Date / Time No Known Allergies Allergy Verified 08/24/20 14:13 Home Medications Medication Instructions Recorded Confirmed Last Taken Type Cyclobenzaprine [Flexeril 10mg] 10 mg PO TID PRN #20 tablet 01/26/14 Unknown Rx HYDROcodone/APAP 5-325 [[place] 1 each PO Q6HR PRN #20 tablet 01/26/14 Unknown Rx 5/325] Naproxen [Naprosyn TAB] 500 mg PO BID #30 tablet 01/26/14 Unknown Rx Clindamycin [Clindamycin CAP] 300 mg PO Q8H 7 Days #21 cap 08/24/20 Unknown Rx Ibuprofen [Motrin] 800 mg PO Q8HR PRN #21 tablet 08/24/20 Unknown Rx Past History Past Medical History: other (See HPI) Past Surgical History: appendectomy Social history: smoking, alcohol abuse Family history: hypertension Medications and Allergies Allergies Allergy/AdvReac Type Severity Reaction Status Date / Time No Known Allergies Allergy Verified 08/24/20 14:13 Home Medications Medication Instructions Recorded Confirmed Last Taken Type No Known Home Medications [No 04/30/21 04/30/21 Unknown History Reported Home Medications] Active Meds: Active Medications Acetaminophen (Acetaminophen 325 Mg Tab) 650 mg PO Q4H PRN PRN Reason: Pain, Mild (1-3) Last Admin: 04/27/21 22:59 Dose: 650 mg Albuterol (Albuterol 2.5 Mg/3 Ml Nebu) 2.5 mg IH Q3HRT PRN PRN Reason: Shortness Of Breath Amiodarone HCl (Amiodarone 200 Mg Tab) 200 mg PO DAILY [facility] Last Admin: 05/01/21 09:44 Dose: 200 mg Amlodipine Besylate (Amlodipine 10 Mg Tab) 10 mg PO QDAY [facility] Last Admin: 05/01/21 09:44 Dose: 10 mg Lipase/Protease/Amylase (Lipase 10,500/Protease 25,000/Amylase 43,750 (Units) Dr Willingham) 1 each FEEDTUBE PRN PRN PRN Reason: For Clogged Feeding Tube Apixaban (Apixaban 5 Mg Tab) 5 mg PO Q12HR [facility]; Protocol Last Admin: 05/01/21 21:28 Dose: 5 mg Aspirin (Aspirin 325 Mg Tab) 325 mg PO QDAY [facility] Last Admin: 05/01/21 09:43 Dose: 325 mg Atorvastatin Calcium (Atorvastatin 40 Mg Tab) 40 mg PO QHS [facility] Last Admin: 05/01/21 21:28 Dose: 40 mg Bisacodyl (Bisacodyl 10 Mg Rect Supp) 10 mg NC QDAY PRN PRN Reason: Constipation Cyclobenzaprine HCl (Cyclobenzaprine 10 Mg Tab) 10 mg PO TID PRN PRN Reason: Muscle Spasm Last Admin: 04/24/21 12:36 Dose: 10 mg Dextrose (Dextrose 10% *Hypoglycemia) 0 ml IV PRN PRN; Protocol PRN Reason: Hypoglycemia Folic Acid (Folic Acid 1 Mg Tab) 1 mg PO QDAY [facility] Last Admin: 05/01/21 09:44 Dose: 1 mg Hydralazine HCl (Hydralazine 20 Mg/1 Ml Inj) 10 mg IV Q6HR PRN PRN Reason: Hypertension Last Admin: 05/01/21 06:02 Dose: 10 mg Hydralazine HCl (Hydralazine 100 Mg Tab) 100 mg PO TID [facility] Last Admin: 05/01/21 21:28 Dose: 100 mg Hydromorphone HCl (Hydromorphone 1 Mg/1 Ml Inj) 0.5 mg IV Q6H PRN PRN Reason: Pain , Severe (7-10) Last Admin: 04/22/21 16:30 Dose: 0.5 mg Sodium Chloride (Nacl 0.9% 1000 Ml) 1,000 mls @ 75 mls/hr IV DIRECT [facility] Insulin Human Lispro (Insulin Lispro 100 Unit/Ml) 0 unit SUB-Q Q6HR [facility]; Protocol Last Admin: 05/02/21 05:28 Dose: 4 unit Lansoprazole (Lansoprazole 30 Mg Solutab) 30 mg FEEDTUBE QDAY [facility] Last Admin: 05/01/21 09:44 Dose: 30 mg Lorazepam (Lorazepam 2 Mg/Ml Vial) 2 mg IV Q1HR PRN PRN Reason: CIWA-Ar 8-15 Last Admin: 04/28/21 23:41 Dose: 2 mg Magnesium Hydroxide (Magnesium Hydroxide (Mom) Oral Liqd Udc) 30 ml PO Q4H PRN PRN Reason: Constipation Metoclopramide HCl (Metoclopramide 10 Mg Tab) 10 mg PO Q6H PRN PRN Reason: Nausea And Vomiting Metoprolol Tartrate (Metoprolol Tartrate 50 Mg Tab) 100 mg PO BID [facility] Last Admin: 05/01/21 21:28 Dose: 100 mg Ondansetron HCl (Ondansetron 4 Mg/2 Ml Inj) 4 mg IV Q8H PRN PRN Reason: Nausea And Vomiting Oxycodone/Acetaminophen (Oxycodone /Acetaminophen 5-325mg Tab) 1 tab PO Q12H PRN PRN Reason: Pain, Moderate (4-6) Last Admin: 04/28/21 18:05 Dose: 1 tab Promethazine HCl (Promethazine 25 Mg Rect Supp) 25 mg NC Q6H PRN PRN Reason: Nausea And Vomiting Simple Syrup (Simple Syrup 15 Ml) 15 ml FEEDTUBE PRN PRN PRN Reason: Hypoglycemia Simple Syrup (Simple Syrup 15 Ml) 30 ml FEEDTUBE PRN PRN PRN Reason: Hypoglycemia Sodium Bicarbonate (Sodium Bicarbonate 325 Mg Tab) 325 mg FEEDTUBE PRN PRN PRN Reason: For Clogged Feeding Tube Sodium Chloride (Sodium Chloride 0.9% 10 Ml Flush Syringe) 10 ml IV PRN PRN PRN Reason: LINE FLUSH Last Admin: 04/25/21 22:44 Dose: 10 ml Physical Examination - Vital Signs Vital Signs: Vital Signs Temp Pulse Resp BP Pulse Ox 98.0 F 135 H 16 195/112 98 04/20/21 16:33 04/20/21 16:33 04/20/21 16:33 04/20/21 16:33 04/20/21 16:33 - Constitutional General appearance: uncomfortable - EENT EENT: Present: PERRL, mucous membranes moist - Respiratory Respiratory: Present: lungs clear, rhonchi - Cardiovascular Cardiovascular: Present: other (irregular ) Extremities: Present: no peripheral edema bilatateraly, no clubbing, cyanosis - Gastrointestinal Gastrointestinal: Present: normoactive bowel sounds - Integumentary Integumentary: Present: normal - Neurologic Cranial nerve examination: PERRL, EOMI, facial droop Speech examination: motor aphasia Detailed motor examination: other (right side weakness 3+/5 upper and 4-/5 lower reflexes are suppressed , unable to walk) - Psychiatric Psychiatric: Present: other (pt. is alert with speech difficulty seems to comprehend , with possible aphasia ) - Level of Consciousness 1a. Level of Consciousness: alert/keenly responsive - LOC Questions 1b. LOC Questions: answers 1 question correctly - LOC Command 1c. LOC Commands: performs 1 task correctly - Best Gaze 2. Best Gaze: normal - Visual 3. Visual: no visual loss - Facial Palsy 4. Facial Palsy: minor paralysis - Motor Arm 5a. Motor Arm Left: no drift 5b. Motor Arm Right: some gravity effort - Motor Leg 6a. Motor Leg Left: no drift 6b. Motor Leg Right: drift - Limb Ataxia 7. Limb Ataxia: absent - Sensory 8. Sensory: normal - Best Language 9. Best Language: mild/moderate aphasia - Dysarthria 10. Dysarthria: normal - Extinction and Inattention 11. Extinction/Inattention: no abnormality - Scoring Total Score: 7 Stroke Severity: Moderate Stroke Results - Laboratory Findings CBC and BMP: 05/02/21 06:08 05/02/21 06:08 Abnormal Lab Findings: Abnormal Labs 04/20/21 04/20/21 04/20/21 17:44 17:44 20:41 WBC 12.4 H RBC 5.72 H 6.04 H Hgb 16.0 H 16.6 H Hct 49.8 H 52.6 H MCH 27 L MCHC RDW Lymph % (Auto) [place] % (Auto) [place] # (Auto) Eos # (Auto) Seg Neutrophils % 78.5 H Seg Neutrophils # D-Dimer Sodium 135 L Potassium Chloride Carbon Dioxide BUN 5 L Creatinine Glucose 169 H POC Glucose Calcium Ferritin Lactate Dehydrogenase C-Reactive Protein Coronavirus (PCR) 04/20/21 04/22/21 04/22/21 20:41 10:04 10:04 WBC 15.2 H RBC 5.59 H Hgb Hct 48.6 H MCH 27 L MCHC 31 L RDW Lymph % (Auto) [place] % (Auto) [place] # (Auto) Eos # (Auto) Seg Neutrophils % Seg Neutrophils # D-Dimer Sodium 146 H D Potassium Chloride Carbon Dioxide BUN Creatinine 0.7 L Glucose 104 H POC Glucose Calcium 10.3 H Ferritin Lactate Dehydrogenase C-Reactive Protein Coronavirus (PCR) 04/23/21 04/23/21 04/24/21 04:53 04:53 04:50 WBC 12.8 H 11.7 H RBC 5.74 H 5.85 H Hgb 16.0 H 15.3 H Hct 50.0 H 50.7 H MCH 26 L MCHC 30 L RDW Lymph % (Auto) 13.3 L [place] % (Auto) 10.0 H 10.9 H [place] # (Auto) 1.3 H 1.3 H Eos # (Auto) Seg Neutrophils % 74.6 H 75.2 H Seg Neutrophils # 9.6 H 8.7 H D-Dimer Sodium 146 H Potassium 3.5 L Chloride Carbon Dioxide 19 L BUN Creatinine Glucose 144 H POC Glucose Calcium Ferritin Lactate Dehydrogenase C-Reactive Protein Coronavirus (PCR) 04/24/21 04/24/21 04/24/21 04:50 12:17 16:10 WBC RBC Hgb Hct MCH MCHC RDW Lymph % (Auto) [place] % (Auto) [place] # (Auto) Eos # (Auto) Seg Neutrophils % Seg Neutrophils # D-Dimer Sodium 148 H Potassium 3.3 L Chloride 108.9 H Carbon Dioxide BUN Creatinine Glucose 160 H POC Glucose 149 H 169 H Calcium Ferritin Lactate Dehydrogenase C-Reactive Protein Coronavirus (PCR) 04/24/21 04/25/21 04/25/21 21:27 05:05 07:19 WBC RBC Hgb Hct MCH MCHC RDW Lymph % (Auto) [place] % (Auto) [place] # (Auto) Eos # (Auto) Seg Neutrophils % Seg Neutrophils # D-Dimer Sodium 150 H Potassium Chloride 112.9 H Carbon Dioxide BUN Creatinine Glucose 192 H POC Glucose 196 H 177 H Calcium Ferritin Lactate Dehydrogenase C-Reactive Protein Coronavirus (PCR) 04/25/21 04/25/21 04/25/21 11:50 16:48 20:29 WBC RBC Hgb Hct MCH MCHC RDW Lymph % (Auto) [place] % (Auto) [place] # (Auto) Eos # (Auto) Seg Neutrophils % Seg Neutrophils # D-Dimer Sodium Potassium Chloride Carbon Dioxide BUN Creatinine Glucose POC Glucose 229 H 220 H 221 H Calcium Ferritin Lactate Dehydrogenase C-Reactive Protein Coronavirus (PCR) 04/26/21 04/26/21 04/26/21 07:02 07:02 12:20 WBC 17.0 H RBC 5.68 H Hgb 15.6 H Hct 50.0 H MCH MCHC 31 L RDW Lymph % (Auto) [place] % (Auto) [place] # (Auto) Eos # (Auto) Seg Neutrophils % Seg Neutrophils # D-Dimer Sodium Potassium 3.5 L Chloride Carbon Dioxide BUN Creatinine Glucose 282 H POC Glucose 291 H Calcium Ferritin Lactate Dehydrogenase C-Reactive Protein Coronavirus (PCR) 04/26/21 04/27/21 04/27/21 16:31 03:46 04:36 WBC 16.2 H RBC 5.54 H Hgb 15.3 H Hct 48.7 H MCH MCHC 31 L RDW Lymph % (Auto) 8.7 L [place] % (Auto) 13.5 H [place] # (Auto) 2.2 H Eos # (Auto) Seg Neutrophils % 77.0 H Seg Neutrophils # 12.5 H D-Dimer Sodium Potassium Chloride Carbon Dioxide BUN Creatinine Glucose POC Glucose 316 H 374 H Calcium Ferritin Lactate Dehydrogenase C-Reactive Protein Coronavirus (PCR) 04/27/21 04/27/21 04/27/21 04:36 09:00 12:26 WBC RBC Hgb Hct MCH MCHC RDW Lymph % (Auto) [place] % (Auto) [place] # (Auto) Eos # (Auto) Seg Neutrophils % Seg Neutrophils # D-Dimer Sodium Potassium Chloride Carbon Dioxide BUN Creatinine 1.6 H Glucose 375 H POC Glucose 255 H Calcium Ferritin Lactate Dehydrogenase C-Reactive Protein Coronavirus (PCR) Positive A 04/27/21 04/27/21 04/28/21 18:09 21:16 09:29 WBC 14.6 H RBC 5.22 H Hgb Hct 45.7 H MCH 27 L MCHC 31 L RDW Lymph % (Auto) 7.9 L [place] % (Auto) 10.7 H [place] # (Auto) 1.6 H Eos # (Auto) Seg Neutrophils % 80.1 H Seg Neutrophils # 11.7 H D-Dimer Sodium Potassium Chloride Carbon Dioxide BUN Creatinine Glucose POC Glucose 205 H 173 H Calcium Ferritin Lactate Dehydrogenase C-Reactive Protein Coronavirus (PCR) 04/28/21 04/28/21 04/28/21 09:29 09:29 09:29 WBC RBC Hgb Hct MCH MCHC RDW Lymph % (Auto) [place] % (Auto) [place] # (Auto) Eos # (Auto) Seg Neutrophils % Seg Neutrophils # D-Dimer 894.94 H Sodium Potassium Chloride Carbon Dioxide BUN 21 H Creatinine 2.1 H Glucose 347 H POC Glucose Calcium Ferritin 1157.0 H Lactate Dehydrogenase 287 H C-Reactive Protein 15.40 H Coronavirus (PCR) 04/28/21 04/28/21 04/28/21 12:19 13:53 13:53 WBC 13.4 H RBC 5.18 H Hgb Hct MCH MCHC RDW Lymph % (Auto) [place] % (Auto) [place] # (Auto) Eos # (Auto) Seg Neutrophils % Seg Neutrophils # D-Dimer Sodium Potassium Chloride Carbon Dioxide BUN Creatinine 2.2 H Glucose POC Glucose 328 H Calcium Ferritin Lactate Dehydrogenase C-Reactive Protein Coronavirus (PCR) 04/28/21 04/28/21 04/29/21 16:52 22:34 05:42 WBC RBC Hgb Hct MCH MCHC RDW Lymph % (Auto) [place] % (Auto) [place] # (Auto) Eos # (Auto) Seg Neutrophils % Seg Neutrophils # D-Dimer Sodium Potassium Chloride Carbon Dioxide BUN Creatinine Glucose POC Glucose 309 H 167 H 211 H Calcium Ferritin Lactate Dehydrogenase C-Reactive Protein Coronavirus (PCR) 04/29/21 04/29/21 04/29/21 11:53 18:30 22:31 WBC RBC Hgb Hct MCH MCHC RDW Lymph % (Auto) [place] % (Auto) [place] # (Auto) Eos # (Auto) Seg Neutrophils % Seg Neutrophils # D-Dimer Sodium Potassium Chloride Carbon Dioxide BUN Creatinine Glucose POC Glucose 199 H 221 H 197 H Calcium Ferritin Lactate Dehydrogenase C-Reactive Protein Coronavirus (PCR) 04/30/21 04/30/21 04/30/21 06:14 07:05 11:44 WBC 13.7 H RBC Hgb Hct MCH 27 L MCHC RDW 12.8 L Lymph % (Auto) [place] % (Auto) [place] # (Auto) Eos # (Auto) Seg Neutrophils % Seg Neutrophils # D-Dimer Sodium Potassium Chloride Carbon Dioxide BUN Creatinine Glucose POC Glucose 207 H 242 H Calcium Ferritin Lactate Dehydrogenase C-Reactive Protein Coronavirus (PCR) 04/30/21 04/30/21 04/30/21 15:09 16:48 22:40 WBC RBC Hgb Hct MCH MCHC RDW Lymph % (Auto) [place] % (Auto) [place] # (Auto) Eos # (Auto) Seg Neutrophils % Seg Neutrophils # D-Dimer Sodium Potassium Chloride Carbon Dioxide BUN Creatinine 1.7 H Glucose 234 H POC Glucose 210 H 217 H Calcium Ferritin Lactate Dehydrogenase C-Reactive Protein Coronavirus (PCR) 05/01/21 05/01/21 05/01/21 05:37 06:56 11:28 WBC RBC Hgb Hct MCH MCHC RDW Lymph % (Auto) [place] % (Auto) [place] # (Auto) Eos # (Auto) Seg Neutrophils % Seg Neutrophils # D-Dimer Sodium Potassium Chloride Carbon Dioxide BUN Creatinine 1.5 H Glucose POC Glucose 246 H 237 H Calcium Ferritin Lactate Dehydrogenase C-Reactive Protein Coronavirus (PCR) 05/01/21 05/01/21 05/02/21 18:43 23:02 05:10 WBC RBC Hgb Hct MCH MCHC RDW Lymph % (Auto) [place] % (Auto) [place] # (Auto) Eos # (Auto) Seg Neutrophils % Seg Neutrophils # D-Dimer Sodium Potassium Chloride Carbon Dioxide BUN Creatinine Glucose POC Glucose 216 H 221 H 252 H Calcium Ferritin Lactate Dehydrogenase C-Reactive Protein Coronavirus (PCR) 05/02/21 05/02/21 05/02/21 05:36 06:08 06:08 WBC 13.3 H RBC 5.18 H Hgb Hct MCH 27 L MCHC 31 L RDW Lymph % (Auto) 11.5 L [place] % (Auto) 12.6 H [place] # (Auto) 1.7 H Eos # (Auto) 0.5 H Seg Neutrophils % 71.9 H Seg Neutrophils # 9.6 H D-Dimer Sodium Potassium Chloride Carbon Dioxide BUN 23 H Creatinine 1.8 H Glucose 292 H POC Glucose 311 H Calcium Ferritin Lactate Dehydrogenase C-Reactive Protein Coronavirus (PCR) Assessment and Plan Assessment and Plan Patient is 61-year-old male past medical history of CVH with LHP, nicotine dependence, EtOH dependence who presented to the ED with a complaint of wors ening left-sided weakness and difficulty speaking for 2 days. Patient was transported to [facility] where a code stroke was initiated. Patient was also discovered to be in new onset A. fib with RVR. Patient converted with IV Cardizem to sinus rhythm. Admitted for further mx. Assessment and plan # Acute/subacute CVA -he is with right side weakness and significant speech difficulty -dysphagia reguired Pg tube feeding -New onset AT -- started on Eliquis 5 mg bid -Echo is with diastolic dysfunction with Ef#45-50% -MRI brain is with subacute multiinfarct cerebellar and brain stem / luba -US carotid <50% -CT with extensive microvascular changes Continue aspirin 325 mg daily Lipitor 40 mg daily. Physical therapy/Occupational Therapy recommended subacute rehab Continue to monitor, #BHASKAR, monitor renal function, david vasomotor nephropathy #Fever/covid 19 positive patient on RA, blood cx neg cont to follow clinically with monitoring inflammatory markers #Atrial fibrillation with RVR (new onset) Cardiology consulted; appreciate recs Eliquis 5 mg twice daily Continue metoprolol tartrate 50 mg 3 times daily for rate control. -Continue amiodarone 200 mg twice daily. #Dysphagia PEG placed by GI on 04/28/2021 Patient's daughter (Soniya Mabry at [phone]) agrees significant for PEG tube placement. -Discussed with daughter at length about overall goals of care. #Advanced care planning -Disease education conducted, care plan discussed, diagnoses discussed, prognosis discussed, and patient acknowledges understanding with care plan -Time: +60 min will sign off
[2021-05-02] MEDS: hydrALAZINE 100 MG TAB PO SCH ×3 (09:20→21:32)
[2021-05-02] MEDS: AMIODARONE 200 MG TAB PO SCH (09:20)
[2021-05-02] MEDS: LANSOPRAZOLE 30 MG SOLUTAB FEEDTUBE SCH (09:20)
[2021-05-02] MEDS: METOPROLOL TARTRATE 50 MG TAB PO SCH ×2 (09:20→21:32)
[2021-05-02] MEDS: amLODIPine 10 MG TAB PO SCH (09:20)
[2021-05-02] MEDS: ASPIRIN 325 MG TAB PO SCH (09:20)
[2021-05-02] MEDS: FOLIC ACID 1 MG TAB PO SCH (09:20)
[2021-05-02] MEDS: APIXABAN 5 MG TAB PO SCH ×2 (09:21→21:32)
[2021-05-03] MEDS: INSULIN LISPRO 100 UNIT/ML SUB-Q SCH ×4 (05:12→23:22)
[2021-05-03 06:28] LABS: Hematocrit 44.4 % (35.5-45.6); Hemoglobin 14.3 gm/dl (11.8-15.2); Mean Corpuscular HGB Conc 32 % (32-34); Mean Corpuscular Volume 87 fl (84-94); Platelet Count 471 K/mm3 (140-440); Red Blood Count 5.08 M/mm3 (3.65-5.03); Red Cell Distribution Width 13.4 % (13.2-15.2)
[2021-05-03] MEDS: hydrALAZINE 100 MG TAB PO SCH ×3 (08:28→20:51)
[2021-05-03] MEDS: amLODIPine 10 MG TAB PO SCH (12:42)
[2021-05-03] MEDS: METOPROLOL TARTRATE 50 MG TAB PO SCH ×2 (12:43→21:06)
[2021-05-03] MEDS: ASPIRIN 325 MG TAB PO SCH (12:43)
[2021-05-03] MEDS: FOLIC ACID 1 MG TAB PO SCH (12:44)
[2021-05-03] MEDS: AMIODARONE 200 MG TAB PO SCH (12:44)
[2021-05-03] MEDS: APIXABAN 5 MG TAB PO SCH ×2 (12:44→21:06)
[2021-05-03] MEDS: LANSOPRAZOLE 30 MG SOLUTAB FEEDTUBE SCH (12:44)
--- NOTE | 2021-05-03 12:44 | Progress Note ---
Assessment and Plan Assessment and Plan Patient is 61-year-old male past medical history of CVH with LHP, nicotine dependence, EtOH dependence who presented to the ED with a complaint of worsening left-sided weakness and difficulty speaking for 2 days. Patient was transported to [facility] where a code stroke was initiated. Patient was also discovered to be in new onset A. fib with RVR. Patient converted with IV Cardizem to sinus rhythm. Admitted for further mx. Assessment and plan # Acute/subacute CVA -he is with right side weakness and significant speech difficulty -dysphagia reguired Pg tube feeding -New onset AT -- started on Eliquis 5 mg bid -Echo is with diastolic dysfunction with Ef#45-50% -MRI brain is with subacute multiinfarct cerebellar and brain stem / luba -US carotid <50% -CT with extensive microvascular changes Continue aspirin 325 mg daily Lipitor 40 mg daily. Physical therapy/Occupational Therapy recommended subacute rehab Continue to monitor, #BHASKAR, monitor renal function, david vasomotor nephropathy #Fever/covid 19 positive patient on RA, blood cx neg cont to follow clinically with monitoring inflammatory markers #Atrial fibrillation with RVR (new onset) Cardiology consulted; appreciate recs Eliquis 5 mg twice daily Continue metoprolol tartrate 50 mg 3 times daily for rate control. -Continue amiodarone 200 mg twice daily. #Dysphagia PEG placed by GI on 04/28/2021 Patient's daughter (Soniya Mabry at [phone]) agrees significant for PEG tube placement. -Discussed with daughter at length about overall goals of care. #Advanced care planning -Disease education conducted, care plan discussed, diagnoses discussed, prognosis discussed, and patient acknowledges understanding with care plan -Time: +60 min Subjective Date of service: 05/02/21 Principal diagnosis: CVA Objective - Constitutional Vitals: Vital Signs - 12hr 05/03/21 04:30 Temperature 98.2 F Pulse Rate 72 Respiratory 18 Rate Blood Pressure 168/91 O2 Sat by Pulse 100 Oximetry General appearance: Present: no acute distress, well-nourished - EENT Eyes: PERRL, EOM intact ENT: hearing intact, clear oral mucosa Ears: bilateral: normal - Neck Neck: supple, normal ROM - Respiratory Respiratory effort: normal Respiratory: bilateral: CTA - Breasts Breasts: normal - Cardiovascular Heart rate: 78 Rhythm: regular Heart Sounds: Present: S1 & S2. Absent: gallop, rub Extremities: pulses intact, No edema, normal color, Full ROM - Gastrointestinal General gastrointestinal: Present: soft, non-tender, non-distended, normal bowel sounds - Genitourinary Male genitourinary: normal - Integumentary Integumentary: clear, warm, dry - Musculoskeletal Musculoskeletal: right sided weakness (Right hemiplegia), generalized weakness - Neurologic Neurologic: focal deficits (Right hemiplegia), other (Dysphagia) - Psychiatric Psychiatric: other (Less alert, looks very weak) - Labs CBC & Chem 7: 05/03/21 05:35 05/02/21 06:08 Labs: Abnormal lab results 05/02/21 05/02/21 05/02/21 Range/Units 16:35 18:00 23:10 WBC (4.5-11.0) K/mm3 RBC (3.65-5.03) M/mm3 Plt Count (140-440) K/mm3 POC Glucose 244 H 291 H 355 H (70-105) mg/dL 05/03/21 05/03/21 05/03/21 Range/Units 04:38 05:35 11:33 WBC 14.4 H (4.5-11.0) K/mm3 RBC 5.08 H (3.65-5.03) M/mm3 Plt Count 471 H (140-440) K/mm3 POC Glucose 309 H 247 H (70-105) mg/dL HEART Score - HEART Score Troponin: Troponin T 0.011 ng/mL (0.00-0.029) 04/20/21 17:44
--- NOTE | 2021-05-03 12:47 | Progress Note ---
Assessment and Plan Assessment and Plan Patient is 61-year-old male past medical history of CVH with LHP, nicotine dependence, EtOH dependence who presented to the ED with a complaint of worsening left-sided weakness and difficulty speaking for 2 days. Patient was transported to [facility] where a code stroke was initiated. Patient was also discovered to be in new onset A. fib with RVR. Patient converted with IV Cardizem to sinus rhythm. Admitted for further mx. Assessment and plan # Acute/subacute CVA -he is with right side weakness and significant speech difficulty -dysphagia reguired Pg tube feeding -New onset AT -- started on Eliquis 5 mg bid -Echo is with diastolic dysfunction with Ef#45-50% -MRI brain is with subacute multiinfarct cerebellar and brain stem / luba -US carotid <50% -CT with extensive microvascular changes Continue aspirin 325 mg daily Lipitor 40 mg daily. Physical therapy/Occupational Therapy recommended subacute rehab Continue to monitor, #BHASKAR, monitor renal function, david vasomotor nephropathy #Fever/covid 19 positive patient on RA, blood cx neg cont to follow clinically with monitoring inflammatory markers #Atrial fibrillation with RVR (new onset) Cardiology consulted; appreciate recs Eliquis 5 mg twice daily Continue metoprolol tartrate 50 mg 3 times daily for rate control. -Continue amiodarone 200 mg twice daily. #Dysphagia PEG placed by GI on 04/28/2021 Patient's daughter (Soniya Mabry at [phone]) agrees significant for PEG tube placement. -Discussed with daughter at length about overall goals of care. #Advanced care planning -Disease education conducted, care plan discussed, diagnoses discussed, prognosis discussed, and patient acknowledges understanding with care plan -Time: +60 min Subjective Date of service: 05/03/21 Principal diagnosis: CVA Objective - Constitutional Vitals: Vital Signs - 12hr 05/03/21 04:30 Temperature 98.2 F Pulse Rate 72 Respiratory 18 Rate Blood Pressure 168/91 O2 Sat by Pulse 100 Oximetry General appearance: Present: no acute distress, well-nourished - EENT Eyes: PERRL, EOM intact ENT: hearing intact, clear oral mucosa Ears: bilateral: normal - Neck Neck: supple, normal ROM - Respiratory Respiratory effort: normal Respiratory: bilateral: CTA - Breasts Breasts: normal - Cardiovascular Heart rate: 78 Rhythm: regular Heart Sounds: Present: S1 & S2. Absent: gallop, rub Extremities: pulses intact, No edema, normal color, Full ROM - Gastrointestinal General gastrointestinal: Present: soft, non-tender, non-distended, normal bowel sounds - Genitourinary Male genitourinary: normal - Integumentary Integumentary: clear, warm, dry - Musculoskeletal Musculoskeletal: right sided weakness (Right hemiplegia) - Neurologic Neurologic: focal deficits ( right hemiplegia) - Psychiatric Psychiatric: other (Lethargic) - Labs CBC & Chem 7: 05/03/21 05:35 05/02/21 06:08 Labs: Abnormal lab results 05/02/21 05/02/21 05/02/21 Range/Units 16:35 18:00 23:10 WBC (4.5-11.0) K/mm3 RBC (3.65-5.03) M/mm3 Plt Count (140-440) K/mm3 POC Glucose 244 H 291 H 355 H (70-105) mg/dL 05/03/21 05/03/21 05/03/21 Range/Units 04:38 05:35 11:33 WBC 14.4 H (4.5-11.0) K/mm3 RBC 5.08 H (3.65-5.03) M/mm3 Plt Count 471 H (140-440) K/mm3 POC Glucose 309 H 247 H (70-105) mg/dL HEART Score - HEART Score Troponin: Troponin T 0.011 ng/mL (0.00-0.029) 04/20/21 17:44
[2021-05-04] MEDS: INSULIN LISPRO 100 UNIT/ML SUB-Q SCH ×3 (05:47→18:35)
[2021-05-04 06:54] LABS: Basophils # (Auto) 0.1 K/mm3 (0.0-0.1); Basophils % (Auto) 0.6 % (0.0-1.8); Eosinophils # (Auto) 0.3 K/mm3 (0.0-0.4); Eosinophils % (Auto) 2.2 % (0.0-4.3); Hemoglobin 13.9 gm/dl (11.8-15.2); Lymphocytes # (Auto) 1.3 K/mm3 (1.2-5.4); Lymphocytes % (Auto) 11.5 % (13.4-35.0); Mean Corpuscular HGB Conc 32 % (32-34); Mean Corpuscular Volume 88 fl (84-94); Monocytes # (Auto) 1.5 K/mm3 (0.0-0.8); Monocytes % (Auto) 12.8 % (0.0-7.3); Platelet Count 518 K/mm3 (140-440); Red Blood Count 4.92 M/mm3 (3.65-5.03); Red Cell Distribution Width 13.2 % (13.2-15.2)
[2021-05-04 07:08] LABS: Albumin 3.5 g/dL (3.9-5); Calcium 9.4 mg/dL (8.4-10.2)
[2021-05-04] MEDS: ASPIRIN 325 MG TAB PO SCH (09:09)
[2021-05-04] MEDS: hydrALAZINE 100 MG TAB PO SCH ×3 (09:10→22:34)
[2021-05-04] MEDS: APIXABAN 5 MG TAB PO SCH ×2 (09:10→22:35)
[2021-05-04] MEDS: LANSOPRAZOLE 30 MG SOLUTAB FEEDTUBE SCH (09:10)
[2021-05-04] MEDS: FOLIC ACID 1 MG TAB PO SCH (09:10)
[2021-05-04] MEDS: METOPROLOL TARTRATE 50 MG TAB PO SCH ×2 (09:22→22:34)
[2021-05-04] MEDS: amLODIPine 10 MG TAB PO SCH (09:22)
[2021-05-04] MEDS: AMIODARONE 200 MG TAB PO SCH (09:23)
--- NOTE | 2021-05-04 13:02 | Progress Note ---
Assessment and Plan Assessment and Plan Patient is 61-year-old male past medical history of CVH with LHP, nicotine dependence, EtOH dependence who presented to the ED with a complaint of worsening left-sided weakness and difficulty speaking for 2 days. Patient was transported to [facility] where a code stroke was initiated. Patient was also discovered to be in new onset A. fib with RVR. Patient converted with IV Cardizem to sinus rhythm. Admitted for further mx. Assessment and plan # Acute/subacute CVA -he is with right side weakness and significant speech difficulty -dysphagia reguired Pg tube feeding -New onset AT -- started on Eliquis 5 mg bid -Echo is with diastolic dysfunction with Ef#45-50% -MRI brain is with subacute multiinfarct cerebellar and brain stem / luba -US carotid <50% -CT with extensive microvascular changes Continue aspirin 325 mg daily Lipitor 40 mg daily. Physical therapy/Occupational Therapy recommended subacute rehab Continue to monitor, #BHASKAR, monitor renal function, david vasomotor nephropathy #Fever/covid 19 positive patient on RA, blood cx neg cont to follow clinically with monitoring inflammatory markers #Atrial fibrillation with RVR (new onset) Paroxysmal atrial fibrillation On Eliquis On amiodarone #Dysphagia PEG placed by GI on 04/28/2021 Patient's daughter (Soniya Mabry at [phone]) agrees significant for PEG tube placement. -Discussed with daughter at length about overall goals of care. #Advanced care planning -Disease education conducted, care plan discussed, diagnoses discussed, prognosis discussed, and patient acknowledges understanding with care plan -Time: +30 minutes Subjective Date of service: 05/04/21 Principal diagnosis: Acute CVA Interval history: Patient is 61-year-old male past medical history of CVH with LHP, nicotine dependence, EtOH dependence who presented to the ED with a complaint of worsening left-sided weakness and difficulty speaking for 2 days. Patient was transported to [facility] where a code stroke was initiated. Patient was also discovered to be in new onset A. fib with RVR. Patient converted with IV Cardizem to sinus rhythm. Admitted for further mx. Daily clinical course: 04/29: Resumed care. 61 y/o male presented with slurred speech, left sided weakness clinically no change, Order for TF, resumed eliquis, wait for CM to arrange placement. PT recommended JACINDA. 2/2: Tolerating tube feeding, continue to follow renal function. Discussed with patient daughter about placement. Patient remains nonverbal with left-sided hemiparesis. MRI and neuro eval pending. May 01, 2021 Right-sided weakness persists Patient is s/p PEG tube placement Tolerating PEG tube feedings May 02, 2021 Right-sided weakness persists S/p PEG tube placement Confused Waiting for placement to subacute rehab May 03, 2021 S/p PEG tube placement Right-sided weakness persists Confused Waiting for placement to subacute rehab May 04, 2021 S/p PEG tube placement Right-sided weakness persists Confused Waiting for placement to subacute rehab/SNF Discussed with family the diagnosis and prognosis Objective - Constitutional Vitals: Vital Signs - 12hr 05/04/21 05/04/21 05:32 09:22 Temperature 98.5 F Pulse Rate 69 70 Respiratory 20 Rate Blood Pressure 139/73 129/82 O2 Sat by Pulse 97 Oximetry General appearance: Present: no acute distress, well-nourished - EENT Eyes: PERRL, EOM intact ENT: hearing intact, clear oral mucosa Ears: bilateral: normal - Neck Neck: supple, normal ROM - Respiratory Respiratory effort: normal Respiratory: bilateral: CTA - Breasts Breasts: normal - Cardiovascular Heart rate: 78 Rhythm: regular Heart Sounds: Present: S1 & S2. Absent: gallop, rub Extremities: pulses intact, No edema, normal color, Full ROM - Gastrointestinal General gastrointestinal: Present: soft, non-tender, non-distended, normal bowel sounds - Genitourinary Male genitourinary: normal - Integumentary Integumentary: clear, warm, dry - Musculoskeletal Musculoskeletal: right sided weakness - Neurologic Neurologic: moves all extremities - Psychiatric Psychiatric: other (Right-sided weakness) - Allied health notes Allied health notes reviewed: nursing, case management - Labs CBC & Chem 7: 05/04/21 05:54 05/04/21 05:54 Labs: Abnormal lab results 05/03/21 05/03/21 05/04/21 Range/Units 17:07 22:36 05:34 WBC (4.5-11.0) K/mm3 Plt Count (140-440) K/mm3 Lymph % (Auto) (13.4-35.0) % Bledsoe % (Auto) (0.0-7.3) % Bledsoe # (Auto) (0.0-0.8) K/mm3 Seg Neutrophils % (40.0-70.0) % Seg Neutrophils # (1.8-7.7) K/mm3 Chloride (98-107) mmol/L BUN (9-20) mg/dL Creatinine (0.8-1.3) mg/dL Glucose (75-100) mg/dL POC Glucose 242 H 257 H 302 H (70-105) mg/dL AST (5-40) units/L ALT (7-56) units/L Alkaline Phosphatase (35-129) units/L Albumin (3.9-5) g/dL 05/04/21 05/04/21 05/04/21 Range/Units 05:54 05:54 11:34 WBC 11.6 H (4.5-11.0) K/mm3 Plt Count 518 H (140-440) K/mm3 Lymph % (Auto) 11.5 L (13.4-35.0) % Bledsoe % (Auto) 12.8 H (0.0-7.3) % Bledsoe # (Auto) 1.5 H (0.0-0.8) K/mm3 Seg Neutrophils % 72.9 H (40.0-70.0) % Seg Neutrophils # 8.5 H (1.8-7.7) K/mm3 Chloride 109.4 H (98-107) mmol/L BUN 26 H (9-20) mg/dL Creatinine 1.9 H (0.8-1.3) mg/dL Glucose 349 H (75-100) mg/dL POC Glucose 349 H (70-105) mg/dL AST 44 H (5-40) units/L ALT 116 H (7-56) units/L Alkaline Phosphatase 213 H (35-129) units/L Albumin 3.5 L (3.9-5) g/dL HEART Score - HEART Score Troponin: Troponin T 0.011 ng/mL (0.00-0.029) 04/20/21 17:44
[2021-05-04] MEDS ORDERED: SODIUM CHLORIDE 0.9% 1000 ML 1,000 ML IV SCH (13:30)
[2021-05-04] MEDS: SODIUM CHLORIDE 0.45% 500 ML IV SCH ×2 (16:35→23:54)
[2021-05-04] MEDS ORDERED: INSULIN GLARGINE 100 UNITS/ML SUB-Q SCH (22:00)
[2021-05-05] MEDS: INSULIN LISPRO 100 UNIT/ML SUB-Q SCH ×5 (00:39→22:00)
[2021-05-05] MEDS: SODIUM CHLORIDE 0.45% 1000 ML 1,000 ML IV SCH ×2 (04:54→18:36)
--- NOTE | 2021-05-05 08:31 | Progress Note ---
Assessment and Plan Assessment and plan: Patient is 61-year-old male past medical history of CVH with LHP, nicotine dependence, EtOH dependence who presented to the ED with a complaint of worsening left-sided weakness and difficulty speaking for 2 days. Patient was transported to [facility] where a code stroke was initiat ed. Patient was also discovered to be in new onset A. fib with RVR. Patient converted with IV Cardizem to sinus rhythm. Admitted for further mx. Assessment and plan -- Acute/subacute CVA -he is with right side weakness and significant speech difficulty -dysphagia reguired Pg tube feeding -New onset AT -- started on Eliquis 5 mg bid -Echo is with diastolic dysfunction with Ef#45-50% -MRI brain is with subacute multiinfarct cerebellar and brain stem / luba -US carotid <50% -CT with extensive microvascular changes Continue aspirin 325 mg daily Lipitor 40 mg daily. Physical therapy/Occupational Therapy recommended subacute rehab Continue to monitor, --BHASKAR, monitor renal function, david vasomotor nephropathy Continue IV fluids, vasomotor nephropathy --Fever/covid 19 positive Oxygen, antibiotics, plenty fluids Treat the underlying cause --Type 2 diabetes mellitus : Uncontrolled Accu-Chek , sliding scale coverage , ADA diet , long-acting insulin dose adjusted as needed --Atrial fibrillation with RVR (new onset) rate controlled Paroxysmal atrial fibrillation, continue amiodarone and Eliquis --Dysphagia PEG placed by GI on 04/28/2021 Patient's daughter (Soniya Mabry at [phone]) agrees significant for PEG tube placement. -Discussed with daughter at length about overall goals of care. --Advanced care planning -Disease education conducted, care plan discussed, diagnoses discussed, prognosis discussed, and patient acknowledges understanding with care plan -Time: +30 minutes --Full code: We will monitor closely and adjust management as needed Plan of care reviewed with the patient and his nurse Subjective Date of service: 05/04/21 Principal diagnosis: Acute CVA Interval history: Patient is 61-year-old male past medical history of CVH with LHP, nicotine dependence, EtOH dependence who presented to the ED with a complaint of worsening left-sided weakness and difficulty speaking for 2 days. Patient was transported to [facility] where a code stroke was initiated. Patient was also discovered to be in new onset A. fib with RVR. Patient converted with IV Cardizem to sinus rhythm. Admitted for further mx. Daily clinical course: 04/29: Resumed care. 61 y/o male presented with slurred speech, left sided weakness clinically no change, Order for TF, resumed eliquis, wait for CM to arrange placement. PT recommended JACINDA. 04/30: Tolerating tube feeding, continue to follow renal function. Discussed with patient daughter about placement. Patient remains nonverbal with left-sided hemiparesis. MRI and neuro eval pending. May 01, 2021 Right-sided weakness persists Patient is s/p PEG tube placement Tolerating PEG tube feedings May 02, 2021 Right-sided weakness persists S/p PEG tube placement Confused Waiting for placement to subacute rehab May 03, 2021 S/p PEG tube placement Right-sided weakness persists Confused, Waiting for placement to subacute rehab May 04, 2021 S/p PEG tube placement Right-sided weakness persists, Confused Waiting for placement to subacute rehab/SNF Discussed with family the diagnosis and prognosis 05/05/21; awaiting placement Mild elevation of LFTs, multifactorial Uncontrolled blood sugars, increase Lantus to 26 units nightly PT recommend subacute rehab/SNF History Interval history: I have seen and examined the patient at the bedside Patient's chart and medications reviewed Acute CVA with right hemiparesis patient feels slightly better Awaiting placement Hospitalist Physical - Constitutional Vitals: Temp Pulse Resp BP Pulse Ox 98.6 F 94 H 18 138/82 96 05/05/21 05:00 05/05/21 05:00 05/05/21 05:00 05/05/21 05:00 05/05/21 05:00 General appearance: Present: no acute distress, well-nourished - EENT Eyes: Present: PERRL, EOM intact - Neck Neck: Present: supple, normal ROM - Respiratory Respiratory effort: normal Respiratory: bilateral: diminished, negative: rales, rhonchi, wheezing - Cardiovascular Rhythm: regular Heart Sounds: Present: S1 & S2 - Extremities Extremities: no ischemia, No edema - Abdominal General gastrointestinal: soft, non-tender, non-distended, normal bowel sounds - Integumentary Integumentary: Present: clear, warm - Psychiatric Psychiatric: appropriate mood/affect, cooperative - Neurologic Neurologic: CNII-XII intact, moves all extremities HEART Score - HEART Score Troponin: Troponin T 0.011 ng/mL (0.00-0.029) 04/20/21 17:44 Results - Labs CBC & Chem 7: 05/04/21 05:54 05/04/21 05:54 Labs: Laboratory Last Values WBC 11.6 K/mm3 (4.5-11.0) H 05/04/21 05:54 RBC 4.92 M/mm3 (3.65-5.03) 05/04/21 05:54 Hgb 13.9 gm/dl (11.8-15.2) 05/04/21 05:54 Hct 43.0 % (35.5-45.6) 05/04/21 05:54 MCV 88 fl (84-94) 05/04/21 05:54 MCH 28 pg (28-32) 05/04/21 05:54 MCHC 32 % (32-34) 05/04/21 05:54 RDW 13.2 % (13.2-15.2) 05/04/21 05:54 Plt Count 518 K/mm3 (140-440) H 05/04/21 05:54 Lymph % (Auto) 11.5 % (13.4-35.0) L 05/04/21 05:54 Long % (Auto) 12.8 % (0.0-7.3) H 05/04/21 05:54 Eos % (Auto) 2.2 % (0.0-4.3) 05/04/21 05:54 Baso % (Auto) 0.6 % (0.0-1.8) 05/04/21 05:54 Lymph # (Auto) 1.3 K/mm3 (1.2-5.4) 05/04/21 05:54 Long # (Auto) 1.5 K/mm3 (0.0-0.8) H 05/04/21 05:54 Eos # (Auto) 0.3 K/mm3 (0.0-0.4) 05/04/21 05:54 Baso # (Auto) 0.1 K/mm3 (0.0-0.1) 05/04/21 05:54 Seg Neutrophils % 72.9 % (40.0-70.0) H 05/04/21 05:54 Seg Neutrophils # 8.5 K/mm3 (1.8-7.7) H 05/04/21 05:54 PT 14.1 Sec. (12.2-14.9) 04/28/21 13:53 INR 0.98 (0.87-1.13) 04/28/21 13:53 APTT 31.8 Sec. (24.2-36.6) 04/28/21 13:53 Thrombin Time 16.2 Sec. (15.1-19.6) 04/20/21 17:44 D-Dimer 894.94 ng/mlDDU (0-234) H 04/28/21 09:29 Sodium 145 mmol/L (137-145) 05/04/21 05:54 Potassium 4.7 mmol/L (3.6-5.0) D 05/04/21 05:54 Chloride 109.4 mmol/L (98-107) H 05/04/21 05:54 Carbon Dioxide 25 mmol/L (22-30) 05/04/21 05:54 Anion Gap 15 mmol/L 05/04/21 05:54 BUN 26 mg/dL (9-20) H 05/04/21 05:54 Creatinine 1.9 mg/dL (0.8-1.3) H 05/04/21 05:54 Estimated GFR 44 ml/min 05/04/21 05:54 BUN/Creatinine Ratio 14 % 05/04/21 05:54 Glucose 349 mg/dL (75-100) H 05/04/21 05:54 POC Glucose 381 mg/dL (70-105) H 05/05/21 06:34 Calcium 9.4 mg/dL (8.4-10.2) 05/04/21 05:54 Magnesium 1.90 mg/dL (1.7-2.3) 04/20/21 17:44 Ferritin 1157.0 ng/mL (30.0-300.0) H 04/28/21 09:29 Total Bilirubin 0.30 mg/dL (0.1-1.2) 05/04/21 05:54 AST 44 units/L (5-40) H 05/04/21 05:54 ALT 116 units/L (7-56) H 05/04/21 05:54 Alkaline Phosphatase 213 units/L (35-129) H 05/04/21 05:54 Lactate Dehydrogenase 287 units/L (91-180) H 04/28/21 09:29 Total Creatine Kinase 79 units/L (55-170) 04/20/21 17:44 Total Creatine Kinase 81 units/L (55-170) 04/20/21 17:44 CK-MB (CK-2) 2.1 ng/mL (0.0-4.0) 04/20/21 17:44 CK-MB (CK-2) Rel Index 2.6 (0-4) 04/20/21 17:44 Troponin T 0.011 ng/mL (0.00-0.029) 04/20/21 17:44 C-Reactive Protein 15.40 mg/dL (0.00-1.30) H 04/28/21 09:29 Total Protein 7.7 g/dL (6.3-8.2) 05/04/21 05:54 Albumin 3.5 g/dL (3.9-5) L 05/04/21 05:54 Albumin/Globulin Ratio 0.8 % 05/04/21 05:54 TSH 1.040 mlU/mL (0.270-4.200) 04/20/21 19:42 Free T4 1.16 ng/dL (0.76-1.46) 04/20/21 19:42 Urine Color Saira (Yellow) 04/26/21 Unknown Urine Turbidity Cloudy (Clear) 04/26/21 Unknown Urine pH 5.0 (5.0-7.0) 04/26/21 Unknown Ur Specific [employer] 1.020 (1.003-1.030) 04/26/21 Unknown Urine Protein 100 mg/dl mg/dL (Negative) 04/26/21 Unknown Urine Glucose (UA) >=500 mg/dL (Negative) 04/26/21 Unknown Urine Ketones Neg mg/dL (Negative) 04/26/21 Unknown Urine Blood Mod (Negative) 04/26/21 Unknown Urine Nitrite Neg (Negative) 04/26/21 Unknown Urine Bilirubin Neg (Negative) 04/26/21 Unknown Urine Urobilinogen 2.0 mg/dL (<2.0) 04/26/21 Unknown Ur Leukocyte Esterase Neg (Negative) 04/26/21 Unknown Urine WBC (Auto) 1.0 /HPF (0.0-6.0) 04/20/21 18:19 Urine RBC (Auto) 3.0 /HPF (0.0-6.0) 04/20/21 18:19 U Epithel Cells (Auto) < 1.0 /HPF (0-13.0) 04/20/21 18:19 Hyaline Casts 5 /LPF 04/20/21 18:19 Urine Mucus Few /HPF 04/20/21 18:19 Plasma/Serum Alcohol < 0.01 % (0-0.07) 04/20/21 17:44 Coronavirus (PCR) Positive (Negative) A 04/27/21 09:00 Bravo/IV: Voiding Method Condom Catheter Active Medications - Current Medications Current Medications: Generic Name Dose Route Start Last Admin Trade Name Freq PRN Reason Stop Dose Admin Acetaminophen 650 mg 04/20/21 18:41 04/27/21 22:59 Acetaminophen 325 Mg Tab PO 650 mg Q4H PRN Administration Pain, Mild (1-3) Albuterol 2.5 mg 04/20/21 18:41 Albuterol 2.5 Mg/3 Ml Nebu IH Q3HRT PRN Shortness Of Breath Amiodarone HCl 200 mg 05/01/21 10:00 05/04/21 09:23 Amiodarone 200 Mg Tab PO 200 mg DAILY NAMAN Administration Amlodipine Besylate 10 mg 05/01/21 10:00 05/04/21 09:22 Amlodipine 10 Mg Tab PO 10 mg QDAY NAMAN Administration Lipase/Protease/Amylase 1 each 04/25/21 15:16 Lipase 10,500/Protease 25,000/Amylase 43,750 (Units) Dr Willingham FEEDTUBE PRN PRN For Clogged Feeding Tube Apixaban 5 mg 04/29/21 10:00 05/04/21 22:35 Apixaban 5 Mg Tab PO 5 mg Q12HR NAMAN Administration Protocol Aspirin 325 mg 04/21/21 10:00 05/04/21 09:09 Aspirin 325 Mg Tab PO 325 mg QDAY NMAAN Administration Atorvastatin Calcium 40 mg 04/20/21 22:00 05/04/21 22:35 Atorvastatin 40 Mg Tab PO 40 mg QHS NAMAN Administration Bisacodyl 10 mg 04/20/21 18:41 Bisacodyl 10 Mg Rect Supp MI QDAY PRN Constipation Cyclobenzaprine HCl 10 mg 04/20/21 19:00 04/24/21 12:36 Cyclobenzaprine 10 Mg Tab PO 10 mg TID PRN Administration Muscle Spasm Dextrose 0 ml 04/27/21 04:03 Dextrose 10% *Hypoglycemia IV PRN PRN Hypoglycemia Protocol Folic Acid 1 mg 04/20/21 18:59 05/04/21 09:10 Folic Acid 1 Mg Tab PO 1 mg QDAY NAMAN Administration Hydralazine HCl 10 mg 04/30/21 05:49 05/01/21 06:02 Hydralazine 20 Mg/1 Ml Inj IV 10 mg Q6HR PRN Administration Hypertension Hydralazine HCl 100 mg 05/01/21 12:00 05/04/21 22:34 Hydralazine 100 Mg Tab PO 100 mg TID NAMAN Administration Hydromorphone HCl 0.5 mg 04/20/21 18:41 04/22/21 16:30 Hydromorphone 1 Mg/1 Ml Inj IV 0.5 mg Q6H PRN Administration Pain , Severe (7-10) Sodium Chloride 1,000 mls @ 100 mls/hr 05/05/21 05:00 05/05/21 04:54 Nacl 0.45% 1000 Ml IV 100 mls/hr DIRECT NAMAN Administration Insulin Glargine 20 units 05/04/21 22:00 05/04/21 22:35 Insulin Glargine 100 Units/Ml SUB-Q 20 units QHS NAMAN Administration Insulin Human Lispro 0 unit 04/27/21 04:00 05/05/21 06:40 Insulin Lispro 100 Unit/Ml SUB-Q 8 unit Q6HR NAMAN Administration Protocol Lansoprazole 30 mg 04/28/21 11:00 05/04/21 09:10 Lansoprazole 30 Mg Solutab FEEDTUBE 30 mg QDAY NAMAN Administration Lorazepam 2 mg 04/20/21 18:44 04/28/21 23:41 Lorazepam 2 Mg/Ml Vial IV 2 mg Q1HR PRN Administration GUALBERTO-Akhil 8-15 Magnesium Hydroxide 30 ml 04/20/21 18:41 Magnesium Hydroxide (Mom) Oral Liqd Udc PO Q4H PRN Constipation Metoclopramide HCl 10 mg 04/20/21 18:41 Metoclopramide 10 Mg Tab PO Q6H PRN Nausea And Vomiting Metoprolol Tartrate 100 mg 04/29/21 12:00 05/04/21 22:34 Metoprolol Tartrate 50 Mg Tab PO 100 mg BID NAMAN Administration Ondansetron HCl 4 mg 04/20/21 18:41 Ondansetron 4 Mg/2 Ml Inj IV Q8H PRN Nausea And Vomiting Oxycodone/Acetaminophen 1 tab 04/20/21 18:41 04/28/21 18:05 Oxycodone /Acetaminophen 5-325mg Tab PO 1 tab Q12H PRN Administration Pain, Moderate (4-6) Promethazine HCl 25 mg 04/20/21 18:41 Promethazine 25 Mg Rect Supp MI Q6H PRN Nausea And Vomiting Simple Syrup 15 ml 04/25/21 15:16 Simple Syrup 15 Ml FEEDTUBE PRN PRN Hypoglycemia Simple Syrup 30 ml 04/25/21 15:16 Simple Syrup 15 Ml FEEDTUBE PRN PRN Hypoglycemia Sodium Bicarbonate 325 mg 04/25/21 15:16 Sodium Bicarbonate 325 Mg Tab FEEDTUBE PRN PRN For Clogged Feeding Tube Sodium Chloride 10 ml 04/20/21 18:41 04/25/21 22:44 Sodium Chloride 0.9% 10 Ml Flush Syringe IV 10 ml PRN PRN Administration LINE FLUSH Nutrition/Malnutrition Assess - Dietary Evaluation Nutrition/Malnutrition Findings: Nutrition Notes Start: 04/23/21 12:36 Freq: Status: Active Protocol: Document 05/02/21 15:10 ANNIKA (Rec: 05/02/21 15:26 ANNIKA [email or web address]) Nutrition Notes Initial or Follow up Brief Note Current Diagnosis Hypertension,Stroke Other Pertinent Diagnosis COVID-19, Atrial Fibrilation w /RVR, Dysphagia, Acute CVA. Current Diet TF-Jevity 1.2 Maurice @ 68 ml/hr ( since B 04/30). Height 6 ft 3 in Weight 79.5 kg [place] Body Weight (kg) 89.09 BMI 21.9 Weight change and time frame No body weight change reported in 2 days. Weight Status Appropriate Subjective/Other Information RD consult for routine F/U on TF tolerance. TF continues as prescribed and well tolerated, according to RN notes. Percent of energy/protein needs met: Prescribed Jevity 1.2 Maurice @ 68 ml/hr provides for energy/ protein needs (1,804 Kcal/77 g ) during LOS, 91% Kcal; 100% AA. #1 Nutrition Diagnosis Inadequate oral intake Diagnosis Progress(for reassessment Continues documentation) Is patient on ventilator? No Is Patient Ambulatory and/or Out of Bed No REE-([facility]-confined to bed) 2020.748 Calculation Used for Recommendations [facility] Additional Notes Protein: 0.8-1 g/Kg; 73-91 g/ day. Fluids: 1 ml/Kcal, or as per MD. Nutrition Intervention Nutrition Support: Continue Jevity 1.2 Maurice @ 68 ml/hr. Flush: 100 ml water Q 4 hr, or as per MD. Kcal 1,960 Protein (gm) 91 Carbohydrates (gm) 277 Fat (gm) 64 Fluid (mL) 1,318 Fiber (gm) 29 % RDI: 91% Kcal; 100% AA. Goal #1 Provide at least 75% of energy /protein needs through Enteral Feeding during LOS. Goal #2 Maintain body weight within +/ -3% of admission body weight during LOS. Follow-Up By: 05/09/21 Additional Comments Continue monitoring TF tolerance and BM.
[2021-05-05] MEDS: AMIODARONE 200 MG TAB PO SCH (10:07)
[2021-05-05] MEDS: APIXABAN 5 MG TAB PO SCH (10:07)
[2021-05-05] MEDS: amLODIPine 10 MG TAB PO SCH (10:07)
[2021-05-05] MEDS: ASPIRIN 325 MG TAB PO SCH (10:07)
[2021-05-05] MEDS: METOPROLOL TARTRATE 50 MG TAB PO SCH (10:07)
[2021-05-05] MEDS: FOLIC ACID 1 MG TAB PO SCH (10:07)
[2021-05-05] MEDS: hydrALAZINE 100 MG TAB PO SCH ×2 (10:08→13:59)
[2021-05-05] MEDS: LANSOPRAZOLE 30 MG SOLUTAB FEEDTUBE SCH (10:09)
[2021-05-05] MEDS: INSULIN GLARGINE 100 UNITS/ML SUB-Q SCH (22:00)
[2021-05-06] MEDS: METOPROLOL TARTRATE 50 MG TAB PO SCH ×3 (00:39→22:44)
[2021-05-06] MEDS: SODIUM CHLORIDE 0.45% 1000 ML 1,000 ML IV SCH ×2 (04:41→16:53)
[2021-05-06 06:40] LABS: Albumin 3.2 g/dL (3.9-5); Calcium 8.8 mg/dL (8.4-10.2)
[2021-05-06] MEDS: INSULIN LISPRO 100 UNIT/ML SUB-Q SCH ×3 (07:15→18:37)
[2021-05-06] MEDS: hydrALAZINE 100 MG TAB PO SCH ×4 (08:39→22:43)
[2021-05-06] MEDS: amLODIPine 10 MG TAB PO SCH (09:15)
[2021-05-06] MEDS: ASPIRIN 325 MG TAB PO SCH (09:16)
[2021-05-06] MEDS: AMIODARONE 200 MG TAB PO SCH (09:16)
[2021-05-06] MEDS: FOLIC ACID 1 MG TAB PO SCH (09:17)
[2021-05-06] MEDS: APIXABAN 5 MG TAB PO SCH ×3 (09:17→22:44)
[2021-05-06] MEDS: LANSOPRAZOLE 30 MG SOLUTAB FEEDTUBE SCH (09:19)
--- NOTE | 2021-05-06 17:08 | Progress Note ---
Assessment and Plan Assessment and plan: Patient is 61-year-old male past medical history of CVH with LHP, nicotine dependence, EtOH dependence who presented to the ED with a complaint of worsening left-sided weakness and difficulty speaking for 2 days. Patient was transported to [facility] where a code stroke was initiat ed. Patient was also discovered to be in new onset A. fib with RVR. Patient converted with IV Cardizem to sinus rhythm. Admitted for further mx. Assessment and plan -- Acute/subacute CVA Dysarthria and right hemiparesis -dysphagia reguired Pg tube feeding -New onset AT -- started on Eliquis 5 mg bid -Echo is with diastolic dysfunction with Ef#45-50% -MRI brain is with subacute multiinfarct cerebellar and brain stem / luba -US carotid <50% stenosis -CT with extensive microvascular changes Continue aspirin 325 mg daily Lipitor 40 mg daily. Physical therapy/Occupational Therapy recommended subacute rehab No resources, uninsured --BHASKAR, vasomotor nephropathy Trending down Monitor renal function, avoid nephrotoxins Renal dose medications --COVID-19 positive 04/27/2021 Oxygen, antibiotics, plenty fluids Treat the underlying cause --Type 2 diabetes mellitus : Uncontrolled Accu-Chek , sliding scale coverage , ADA diet , long-acting insulin dose adjusted as needed --Atrial fibrillation with RVR (new onset) rate controlled Paroxysmal atrial fibrillation, continue amiodarone and Eliquis --Dysphagia PEG placed by GI on 04/28/2021 Patient's daughter (Soniya Mabry at [phone]) agrees significant for PEG tube placement. -Discussed with daughter at length about overall goals of care. --Moderate malnutrition/hypoalbuminemia Albumin 3.2, nutrition supplements and supportive care --Advanced care planning -Disease education conducted, care plan discussed, diagnoses discussed, prognosis discussed, and patient acknowledges understanding with care plan -Time: +30 minutes --Full code status: Discharge planning per case management Pending placement. Patient is stable for discharge We will monitor closely and adjust management as needed Plan of care reviewed with the patient and his nurse Subjective Date of service: 05/04/21 Principal diagnosis: Acute CVA Interval history: Patient is 61-year-old male past medical history of CVH with LHP, nicotine dependence, EtOH dependence who presented to the ED with a complaint of worsening left-sided weakness and difficulty speaking for 2 days. Patient was transported to [facility] where a code stroke was initiated. Patient was also discovered to be in new onset A. fib with RVR. Patient converted with IV Cardizem to sinus rhythm. Admitted for further mx. Daily clinical course: 04/29: Resumed care. 61 y/o male presented with slurred speech, left sided weakness clinically no change, Order for TF, resumed eliquis, wait for CM to arrange placement. PT recommended [facility]. 04/30: Tolerating tube feeding, continue to follow renal function. Discussed with patient daughter about placement. Patient remains nonverbal with left-sided hemiparesis. MRI and neuro eval pending. May 01, 2021 Right-sided weakness persists Patient is s/p PEG tube placement Tolerating PEG tube feedings May 02, 2021 Right-sided weakness persists S/p PEG tube placement Confused Waiting for placement to subacute rehab May 03, 2021 S/p PEG tube placement Right-sided weakness persists Confused, Waiting for placement to subacute rehab May 04, 2021 S/p PEG tube placement Right-sided weakness persists, Confused Waiting for placement to subacute rehab/SNF Discussed with family the diagnosis and prognosis 05/05/21; awaiting placement Mild elevation of LFTs, multifactorial Uncontrolled blood sugars, increase Lantus to 26 units nightly PT recommend subacute rehab/SNF 05/06/21: Patient is tolerating PEG feeds, clinically stable for discharge Pending placement, barrier to discharge, no resources and uninsured CM trying for [facility] hospice. I spoke with patient's daughter Ms. Byrnes At [phone] discussed in detail patient's condition, mild improvement, tests and reports, consultants recommendations, treatment and discharge planning issues, she had many questions answered all of them and encouraged her to call back if she has new concerns, History Interval history: I seen and examined the patient at the bedside this morning Patient's chart and medications reviewed No new overnight events reported by the nursing staff Dysarthria, right-sided hemiparesis Hospitalist Physical - Constitutional Vitals: Temp Pulse Resp BP Pulse Ox 97.6 F 59 L 20 125/72 96 05/06/21 12:56 05/06/21 12:56 05/06/21 12:56 05/06/21 12:56 05/06/21 12:56 General appearance: Present: no acute distress, well-nourished - EENT Eyes: Present: PERRL, EOM intact - Neck Neck: Present: supple, normal ROM - Respiratory Respiratory effort: normal Respiratory: bilateral: diminished, negative: rales, rhonchi, wheezing - Cardiovascular Rhythm: regular Heart Sounds: Present: S1 & S2 - Extremities Extremities: no ischemia, No edema - Abdominal General gastrointestinal: soft, non-tender, non-distended - Integumentary Integumentary: Present: warm - Psychiatric Psychiatric: other (Confused at times, minimally communicative) - Neurologic Neurologic: moves all extremities (Acute CVA with right hemiparesis, dysarthria) HEART Score - HEART Score Troponin: Troponin T 0.011 ng/mL (0.00-0.029) 04/20/21 17:44 Results - Labs CBC & Chem 7: 05/04/21 05:54 05/06/21 05:32 Labs: Laboratory Last Values WBC 11.6 K/mm3 (4.5-11.0) H 05/04/21 05:54 RBC 4.92 M/mm3 (3.65-5.03) 05/04/21 05:54 Hgb 13.9 gm/dl (11.8-15.2) 05/04/21 05:54 Hct 43.0 % (35.5-45.6) 05/04/21 05:54 MCV 88 fl (84-94) 05/04/21 05:54 MCH 28 pg (28-32) 05/04/21 05:54 MCHC 32 % (32-34) 05/04/21 05:54 RDW 13.2 % (13.2-15.2) 05/04/21 05:54 Plt Count 518 K/mm3 (140-440) H 05/04/21 05:54 Lymph % (Auto) 11.5 % (13.4-35.0) L 05/04/21 05:54 Oxford % (Auto) 12.8 % (0.0-7.3) H 05/04/21 05:54 Eos % (Auto) 2.2 % (0.0-4.3) 05/04/21 05:54 Baso % (Auto) 0.6 % (0.0-1.8) 05/04/21 05:54 Lymph # (Auto) 1.3 K/mm3 (1.2-5.4) 05/04/21 05:54 Oxford # (Auto) 1.5 K/mm3 (0.0-0.8) H 05/04/21 05:54 Eos # (Auto) 0.3 K/mm3 (0.0-0.4) 05/04/21 05:54 Baso # (Auto) 0.1 K/mm3 (0.0-0.1) 05/04/21 05:54 Seg Neutrophils % 72.9 % (40.0-70.0) H 05/04/21 05:54 Seg Neutrophils # 8.5 K/mm3 (1.8-7.7) H 05/04/21 05:54 PT 14.1 Sec. (12.2-14.9) 04/28/21 13:53 INR 0.98 (0.87-1.13) 04/28/21 13:53 APTT 31.8 Sec. (24.2-36.6) 04/28/21 13:53 Thrombin Time 16.2 Sec. (15.1-19.6) 04/20/21 17:44 D-Dimer 894.94 ng/mlDDU (0-234) H 04/28/21 09:29 Sodium 153 mmol/L (137-145) H D 05/06/21 05:32 Potassium 4.6 mmol/L (3.6-5.0) 05/06/21 05:32 Chloride 115.2 mmol/L (98-107) H 05/06/21 05:32 Carbon Dioxide 24 mmol/L (22-30) 05/06/21 05:32 Anion Gap 18 mmol/L 05/06/21 05:32 BUN 29 mg/dL (9-20) H 05/06/21 05:32 Creatinine 1.6 mg/dL (0.8-1.3) H 05/06/21 05:32 Estimated GFR 53 ml/min 05/06/21 05:32 BUN/Creatinine Ratio 18 % 05/06/21 05:32 Glucose 345 mg/dL (75-100) H 05/06/21 05:32 POC Glucose 261 mg/dL (70-105) H 05/06/21 11:38 Calcium 8.8 mg/dL (8.4-10.2) 05/06/21 05:32 Magnesium 1.90 mg/dL (1.7-2.3) 04/20/21 17:44 Ferritin 1157.0 ng/mL (30.0-300.0) H 04/28/21 09:29 Total Bilirubin 0.20 mg/dL (0.1-1.2) 05/06/21 05:32 AST 25 units/L (5-40) 05/06/21 05:32 ALT 64 units/L (7-56) H 05/06/21 05:32 Alkaline Phosphatase 168 units/L (35-129) H 05/06/21 05:32 Lactate Dehydrogenase 287 units/L (91-180) H 04/28/21 09:29 Total Creatine Kinase 79 units/L (55-170) 04/20/21 17:44 Total Creatine Kinase 81 units/L (55-170) 04/20/21 17:44 CK-MB (CK-2) 2.1 ng/mL (0.0-4.0) 04/20/21 17:44 CK-MB (CK-2) Rel Index 2.6 (0-4) 04/20/21 17:44 Troponin T 0.011 ng/mL (0.00-0.029) 04/20/21 17:44 C-Reactive Protein 15.40 mg/dL (0.00-1.30) H 04/28/21 09:29 Total Protein 7.4 g/dL (6.3-8.2) 05/06/21 05:32 Albumin 3.2 g/dL (3.9-5) L 05/06/21 05:32 Albumin/Globulin Ratio 0.8 % 05/06/21 05:32 TSH 1.040 mlU/mL (0.270-4.200) 04/20/21 19:42 Free T4 1.16 ng/dL (0.76-1.46) 04/20/21 19:42 Urine Color Saira (Yellow) 04/26/21 Unknown Urine Turbidity Cloudy (Clear) 04/26/21 Unknown Urine pH 5.0 (5.0-7.0) 04/26/21 Unknown Ur Specific Osborne 1.020 (1.003-1.030) 04/26/21 Unknown Urine Protein 100 mg/dl mg/dL (Negative) 04/26/21 Unknown Urine Glucose (UA) >=500 mg/dL (Negative) 04/26/21 Unknown Urine Ketones Neg mg/dL (Negative) 04/26/21 Unknown Urine Blood Mod (Negative) 04/26/21 Unknown Urine Nitrite Neg (Negative) 04/26/21 Unknown Urine Bilirubin Neg (Negative) 04/26/21 Unknown Urine Urobilinogen 2.0 mg/dL (<2.0) 04/26/21 Unknown Ur Leukocyte Esterase Neg (Negative) 04/26/21 Unknown Urine WBC (Auto) 1.0 /HPF (0.0-6.0) 04/20/21 18:19 Urine RBC (Auto) 3.0 /HPF (0.0-6.0) 04/20/21 18:19 U Epithel Cells (Auto) < 1.0 /HPF (0-13.0) 04/20/21 18:19 Hyaline Casts 5 /LPF 04/20/21 18:19 Urine Mucus Few /HPF 04/20/21 18:19 Plasma/Serum Alcohol < 0.01 % (0-0.07) 04/20/21 17:44 Coronavirus (PCR) Positive (Negative) A 04/27/21 09:00 Bravo/IV: Voiding Method Condom Catheter Active Medications - Current Medications Current Medications: Generic Name Dose Route Start Last Admin Trade Name Freq PRN Reason Stop Dose Admin Acetaminophen 650 mg 04/20/21 18:41 04/27/21 22:59 Acetaminophen 325 Mg Tab PO 650 mg Q4H PRN Administration Pain, Mild (1-3) Albuterol 2.5 mg 04/20/21 18:41 Albuterol 2.5 Mg/3 Ml Nebu IH Q3HRT PRN Shortness Of Breath Amiodarone HCl 200 mg 05/01/21 10:00 05/06/21 09:16 Amiodarone 200 Mg Tab PO 200 mg DAILY NAMAN Administration Amlodipine Besylate 10 mg 05/01/21 10:00 05/06/21 09:15 Amlodipine 10 Mg Tab PO 10 mg QDAY NAMAN Administration Lipase/Protease/Amylase 1 each 04/25/21 15:16 Lipase 10,500/Protease 25,000/Amylase 43,750 (Units) Dr Cap FEEDTUBE PRN PRN For Clogged Feeding Tube Apixaban 5 mg 04/29/21 10:00 05/06/21 09:17 Apixaban 5 Mg Tab PO 5 mg Q12HR NAMAN Administration Protocol Aspirin 325 mg 04/21/21 10:00 05/06/21 09:16 Aspirin 325 Mg Tab PO 325 mg QDAY NAMAN Administration Atorvastatin Calcium 40 mg 04/20/21 22:00 05/06/21 00:00 Atorvastatin 40 Mg Tab PO 40 mg QHS NAMAN Administration Bisacodyl 10 mg 04/20/21 18:41 Bisacodyl 10 Mg Rect Supp GA QDAY PRN Constipation Cyclobenzaprine HCl 10 mg 04/20/21 19:00 04/24/21 12:36 Cyclobenzaprine 10 Mg Tab PO 10 mg TID PRN Administration Muscle Spasm Dextrose 0 ml 04/27/21 04:03 Dextrose 10% *Hypoglycemia IV PRN PRN Hypoglycemia Protocol Folic Acid 1 mg 04/20/21 18:59 05/06/21 09:17 Folic Acid 1 Mg Tab PO 1 mg QDAY NAMAN Administration Hydralazine HCl 10 mg 04/30/21 05:49 05/01/21 06:02 Hydralazine 20 Mg/1 Ml Inj IV 10 mg Q6HR PRN Administration Hypertension Hydralazine HCl 100 mg 05/01/21 12:00 05/06/21 13:25 Hydralazine 100 Mg Tab PO 100 mg TID NAMAN Administration Hydromorphone HCl 0.5 mg 04/20/21 18:41 04/22/21 16:30 Hydromorphone 1 Mg/1 Ml Inj IV 0.5 mg Q6H PRN Administration Pain , Severe (7-10) Sodium Chloride 1,000 mls @ 100 mls/hr 05/05/21 05:00 05/06/21 16:53 Nacl 0.45% 1000 Ml IV 100 mls/hr DIRECT NAMAN Administration Insulin Glargine 26 units 05/05/21 22:00 05/05/21 22:00 Insulin Glargine 100 Units/Ml SUB-Q 26 units QHS NAMAN Administration Insulin Human Lispro 0 unit 04/27/21 04:00 05/06/21 13:26 Insulin Lispro 100 Unit/Ml SUB-Q 4 unit Q6HR NAMAN Administration Protocol Lansoprazole 30 mg 04/28/21 11:00 05/06/21 09:19 Lansoprazole 30 Mg Solutab FEEDTUBE 30 mg QDAY NAMAN Administration Lorazepam 2 mg 04/20/21 18:44 04/28/21 23:41 Lorazepam 2 Mg/Ml Vial IV 2 mg Q1HR PRN Administration CIWA-Ar 8-15 Magnesium Hydroxide 30 ml 04/20/21 18:41 Magnesium Hydroxide (Mom) Oral Liqd Udc PO Q4H PRN Constipation Metoclopramide HCl 10 mg 04/20/21 18:41 Metoclopramide 10 Mg Tab PO Q6H PRN Nausea And Vomiting Metoprolol Tartrate 100 mg 04/29/21 12:00 05/06/21 09:18 Metoprolol Tartrate 50 Mg Tab PO 100 mg BID NAMAN Administration Ondansetron HCl 4 mg 04/20/21 18:41 Ondansetron 4 Mg/2 Ml Inj IV Q8H PRN Nausea And Vomiting Oxycodone/Acetaminophen 1 tab 04/20/21 18:41 04/28/21 18:05 Oxycodone /Acetaminophen 5-325mg Tab PO 1 tab Q12H PRN Administration Pain, Moderate (4-6) Promethazine HCl 25 mg 04/20/21 18:41 Promethazine 25 Mg Rect Supp GA Q6H PRN Nausea And Vomiting Simple Syrup 15 ml 04/25/21 15:16 Simple Syrup 15 Ml FEEDTUBE PRN PRN Hypoglycemia Simple Syrup 30 ml 04/25/21 15:16 Simple Syrup 15 Ml FEEDTUBE PRN PRN Hypoglycemia Sodium Bicarbonate 325 mg 04/25/21 15:16 Sodium Bicarbonate 325 Mg Tab FEEDTUBE PRN PRN For Clogged Feeding Tube Sodium Chloride 10 ml 04/20/21 18:41 04/25/21 22:44 Sodium Chloride 0.9% 10 Ml Flush Syringe IV 10 ml PRN PRN Administration LINE FLUSH Nutrition/Malnutrition Assess - Dietary Evaluation Nutrition/Malnutrition Findings: Nutrition Notes Start: 04/23/21 12:36 Freq: Status: Active Protocol: Document 05/02/21 15:10 ANNIKA (Rec: 05/02/21 15:26 ANNIKA [id number]) Nutrition Notes Initial or Follow up Brief Note Current Diagnosis Hypertension,Stroke Other Pertinent Diagnosis COVID-19, Atrial Fibrilation w /RVR, Dysphagia, Acute CVA. Current Diet TF-Jevity 1.2 Maurice @ 68 ml/hr ( since B 04/30). Height 6 ft 3 in Weight 79.5 kg Buckley Body Weight (kg) 89.09 BMI 21.9 Weight change and time frame No body weight change reported in 2 days. Weight Status Appropriate Subjective/Other Information RD consult for routine F/U on TF tolerance. TF continues as prescribed and well tolerated, according to RN notes. Percent of energy/protein needs met: Prescribed Jevity 1.2 Maurice @ 68 ml/hr provides for energy/ protein needs (1,804 Kcal/77 g ) during LOS, 91% Kcal; 100% AA. #1 Nutrition Diagnosis Inadequate oral intake Diagnosis Progress(for reassessment Continues documentation) Is patient on ventilator? No Is Patient Ambulatory and/or Out of Bed No REE-(Piatt-St. Jeor-confined to bed) 2020.748 Calculation Used for [facility]ations [facility] Additional Notes Protein: 0.8-1 g/Kg; 73-91 g/ day. Fluids: 1 ml/Kcal, or as per MD. Nutrition Intervention Nutrition Support: Continue Jevity 1.2 Maurice @ 68 ml/hr. Flush: 100 ml water Q 4 hr, or as per MD. Kcal 1,960 Protein (gm) 91 Carbohydrates (gm) 277 Fat (gm) 64 Fluid (mL) 1,318 Fiber (gm) 29 % RDI: 91% Kcal; 100% AA. Goal #1 Provide at least 75% of energy /protein needs through Enteral Feeding during LOS. Goal #2 Maintain body weight within +/ -3% of admission body weight during LOS. Follow-Up By: 05/09/21 Additional Comments Continue monitoring TF tolerance and BM.
--- NOTE | 2021-05-06 17:14 | Event Note ---
Date: 05/06/21 I spoke with patient's daughter Ms. Byrnes, At [phone] discussed in detail patient's condition, mild improvement, tests and reports, consultants recommendations, treatment and discharge planning issues, she had many questions answered all of them and encouraged her to call back if she has new concerns,
[2021-05-06] MEDS: INSULIN GLARGINE 100 UNITS/ML SUB-Q SCH (22:56)
[2021-05-07] MEDS: INSULIN LISPRO 100 UNIT/ML SUB-Q SCH ×5 (01:14→23:29)
--- NOTE | 2021-05-07 09:58 | Progress Note ---
Assessment and Plan Assessment and plan: Patient is 61-year-old male past medical history of CVH with LHP, nicotine dependence, EtOH dependence who presented to the ED with a complaint of worsening left-sided weakness and difficulty speaking for 2 days. Patient was transported to [facility] where a code stroke was initiat ed. Patient was also discovered to be in new onset A. fib with RVR. Patient converted with IV Cardizem to sinus rhythm. Admitted for further mx. Assessment and plan -- Acute/subacute CVA Dysarthria and right hemiparesis -dysphagia reguired Pg tube feeding -New onset AT -- started on Eliquis 5 mg bid -Echo is with diastolic dysfunction with Ef#45-50% -MRI brain is with subacute multiinfarct cerebellar and brain stem / luba -US carotid <50% stenosis -CT with extensive microvascular changes Continue aspirin 325 mg daily Lipitor 40 mg daily. Physical therapy/Occupational Therapy recommended subacute rehab No resources, uninsured --BHASKAR, vasomotor nephropathy Trending down Monitor renal function, avoid nephrotoxins Renal dose medications --COVID-19 positive 04/27/2021 Oxygen, antibiotics, plenty fluids Treat the underlying cause --Type 2 diabetes mellitus : Uncontrolled Accu-Chek , sliding scale coverage , ADA diet , long-acting insulin dose adjusted as needed --Atrial fibrillation with RVR (new onset) rate controlled Paroxysmal atrial fibrillation, continue amiodarone and Eliquis --Dysphagia PEG placed by GI on 04/28/2021 Patient's daughter (Soniya Mabry at [phone]) agrees significant for PEG tube placement. -Discussed with daughter at length about overall goals of care. --Moderate malnutrition/hypoalbuminemia Albumin 3.2, nutrition supplements and supportive care --Advanced care planning -Disease education conducted, care plan discussed, diagnoses discussed, prognosis discussed, and patient acknowledges understanding with care plan -Time: +30 minutes --Full code status: Discharge planning per case management Pending placement. Patient is stable for discharge We will monitor closely and adjust management as needed Plan of care reviewed with the patient and his nurse Subjective Date of service: 05/04/21 Principal diagnosis: Acute CVA Interval history: Patient is 61-year-old male past medical history of CVH with LHP, nicotine dependence, EtOH dependence who presented to the ED with a complaint of worsening left-sided weakness and difficulty speaking for 2 days. Patient was transported to [facility] where a code stroke was initiated. Patient was also discovered to be in new onset A. fib with RVR. Patient converted with IV Cardizem to sinus rhythm. Admitted for further mx. Daily clinical course: 04/29: Resumed care. 61 y/o male presented with slurred speech, left sided weakness clinically no change, Order for TF, resumed eliquis, wait for CM to arrange placement. PT recommended [facility]. 04/30: Tolerating tube feeding, continue to follow renal function. Discussed with patient daughter about placement. Patient remains nonverbal with left-sided hemiparesis. MRI and neuro eval pending. May 01, 2021 Right-sided weakness persists Patient is s/p PEG tube placement Tolerating PEG tube feedings May 02, 2021 Right-sided weakness persists S/p PEG tube placement Confused Waiting for placement to subacute rehab May 03, 2021 S/p PEG tube placement Right-sided weakness persists Confused, Waiting for placement to subacute rehab May 04, 2021 S/p PEG tube placement Right-sided weakness persists, Confused Waiting for placement to subacute rehab/SNF Discussed with family the diagnosis and prognosis 05/05/21; awaiting placement Mild elevation of LFTs, multifactorial Uncontrolled blood sugars, increase Lantus to 26 units nightly PT recommend subacute rehab/SNF 05/06/21: Patient is tolerating PEG feeds, clinically stable for discharge Pending placement, barrier to discharge, no resources and uninsured CM trying for [facility] home hospice. I spoke with patient's daughter Ms. Byrnes At [phone] discussed in detail patient's condition, mild improvement, tests and reports, consultants recommendations, treatment and discharge planning issues, she had many questions answered all of them and encouraged her to call back if she has new concerns, 05/07/21; pending placement History Interval history: Seen and examined the patient at the bedside Patient's chart and medications reviewed Patient is more alert and awake today Vital signs noted Hospitalist Physical - Constitutional Vitals: Temp Pulse Resp BP Pulse Ox 98.2 F 57 L 18 133/79 100 05/07/21 06:02 05/07/21 06:02 05/07/21 06:02 05/07/21 06:02 05/07/21 06:02 General appearance: Present: no acute distress, well-nourished, other (3 dysarthria) - EENT Eyes: Present: PERRL, EOM intact - Neck Neck: Present: supple, normal ROM - Respiratory Respiratory effort: normal Respiratory: bilateral: diminished, negative: rales, rhonchi, wheezing - Cardiovascular Rhythm: regular Heart Sounds: Present: S1 & S2 - Extremities Extremities: no ischemia, No edema - Abdominal General gastrointestinal: soft, non-tender, non-distended, normal bowel sounds - Integumentary Integumentary: Present: clear, warm - Psychiatric Psychiatric: other (Communicative dysarthria) - Neurologic Neurologic: moves all extremities (Acute CVA right-sided hemiparesis dysarthria) HEART Score - HEART Score Troponin: Troponin T 0.011 ng/mL (0.00-0.029) 04/20/21 17:44 Results - Labs CBC & Chem 7: 05/04/21 05:54 05/06/21 05:32 Labs: Laboratory Last Values WBC 11.6 K/mm3 (4.5-11.0) H 05/04/21 05:54 RBC 4.92 M/mm3 (3.65-5.03) 05/04/21 05:54 Hgb 13.9 gm/dl (11.8-15.2) 05/04/21 05:54 Hct 43.0 % (35.5-45.6) 05/04/21 05:54 MCV 88 fl (84-94) 05/04/21 05:54 MCH 28 pg (28-32) 05/04/21 05:54 MCHC 32 % (32-34) 05/04/21 05:54 RDW 13.2 % (13.2-15.2) 05/04/21 05:54 Plt Count 518 K/mm3 (140-440) H 05/04/21 05:54 Lymph % (Auto) 11.5 % (13.4-35.0) L 05/04/21 05:54 Scott % (Auto) 12.8 % (0.0-7.3) H 05/04/21 05:54 Eos % (Auto) 2.2 % (0.0-4.3) 05/04/21 05:54 Baso % (Auto) 0.6 % (0.0-1.8) 05/04/21 05:54 Lymph # (Auto) 1.3 K/mm3 (1.2-5.4) 05/04/21 05:54 Scott # (Auto) 1.5 K/mm3 (0.0-0.8) H 05/04/21 05:54 Eos # (Auto) 0.3 K/mm3 (0.0-0.4) 05/04/21 05:54 Baso # (Auto) 0.1 K/mm3 (0.0-0.1) 05/04/21 05:54 Seg Neutrophils % 72.9 % (40.0-70.0) H 05/04/21 05:54 Seg Neutrophils # 8.5 K/mm3 (1.8-7.7) H 05/04/21 05:54 PT 14.1 Sec. (12.2-14.9) 04/28/21 13:53 INR 0.98 (0.87-1.13) 04/28/21 13:53 APTT 31.8 Sec. (24.2-36.6) 04/28/21 13:53 Thrombin Time 16.2 Sec. (15.1-19.6) 04/20/21 17:44 D-Dimer 894.94 ng/mlDDU (0-234) H 04/28/21 09:29 Sodium 153 mmol/L (137-145) H D 05/06/21 05:32 Potassium 4.6 mmol/L (3.6-5.0) 05/06/21 05:32 Chloride 115.2 mmol/L (98-107) H 05/06/21 05:32 Carbon Dioxide 24 mmol/L (22-30) 05/06/21 05:32 Anion Gap 18 mmol/L 05/06/21 05:32 BUN 29 mg/dL (9-20) H 05/06/21 05:32 Creatinine 1.6 mg/dL (0.8-1.3) H 05/06/21 05:32 Estimated GFR 53 ml/min 05/06/21 05:32 BUN/Creatinine Ratio 18 % 05/06/21 05:32 Glucose 345 mg/dL (75-100) H 05/06/21 05:32 POC Glucose 249 mg/dL (70-105) H 05/07/21 06:03 Calcium 8.8 mg/dL (8.4-10.2) 05/06/21 05:32 Magnesium 1.90 mg/dL (1.7-2.3) 04/20/21 17:44 Ferritin 1157.0 ng/mL (30.0-300.0) H 04/28/21 09:29 Total Bilirubin 0.20 mg/dL (0.1-1.2) 05/06/21 05:32 AST 25 units/L (5-40) 05/06/21 05:32 ALT 64 units/L (7-56) H 05/06/21 05:32 Alkaline Phosphatase 168 units/L (35-129) H 05/06/21 05:32 Lactate Dehydrogenase 287 units/L (91-180) H 04/28/21 09:29 Total Creatine Kinase 79 units/L (55-170) 04/20/21 17:44 Total Creatine Kinase 81 units/L (55-170) 04/20/21 17:44 CK-MB (CK-2) 2.1 ng/mL (0.0-4.0) 04/20/21 17:44 CK-MB (CK-2) Rel Index 2.6 (0-4) 04/20/21 17:44 Troponin T 0.011 ng/mL (0.00-0.029) 04/20/21 17:44 C-Reactive Protein 15.40 mg/dL (0.00-1.30) H 04/28/21 09:29 Total Protein 7.4 g/dL (6.3-8.2) 05/06/21 05:32 Albumin 3.2 g/dL (3.9-5) L 05/06/21 05:32 Albumin/Globulin Ratio 0.8 % 05/06/21 05:32 TSH 1.040 mlU/mL (0.270-4.200) 04/20/21 19:42 Free T4 1.16 ng/dL (0.76-1.46) 04/20/21 19:42 Urine Color Saira (Yellow) 04/26/21 Unknown Urine Turbidity Cloudy (Clear) 04/26/21 Unknown Urine pH 5.0 (5.0-7.0) 04/26/21 Unknown Ur Specific [place] 1.020 (1.003-1.030) 04/26/21 Unknown Urine Protein 100 mg/dl mg/dL (Negative) 04/26/21 Unknown Urine Glucose (UA) >=500 mg/dL (Negative) 04/26/21 Unknown Urine Ketones Neg mg/dL (Negative) 04/26/21 Unknown Urine Blood Mod (Negative) 04/26/21 Unknown Urine Nitrite Neg (Negative) 04/26/21 Unknown Urine Bilirubin Neg (Negative) 04/26/21 Unknown Urine Urobilinogen 2.0 mg/dL (<2.0) 04/26/21 Unknown Ur Leukocyte Esterase Neg (Negative) 04/26/21 Unknown Urine WBC (Auto) 1.0 /HPF (0.0-6.0) 04/20/21 18:19 Urine RBC (Auto) 3.0 /HPF (0.0-6.0) 04/20/21 18:19 U Epithel Cells (Auto) < 1.0 /HPF (0-13.0) 04/20/21 18:19 Hyaline Casts 5 /LPF 04/20/21 18:19 Urine Mucus Few /HPF 04/20/21 18:19 Plasma/Serum Alcohol < 0.01 % (0-0.07) 04/20/21 17:44 Coronavirus (PCR) Positive (Negative) A 04/27/21 09:00 Bravo/IV: Voiding Method Condom Catheter Active Medications - Current Medications Current Medications: Generic Name Dose Route Start Last Admin Trade Name Freq PRN Reason Stop Dose Admin Acetaminophen 650 mg 04/20/21 18:41 04/27/21 22:59 Acetaminophen 325 Mg Tab PO 650 mg Q4H PRN Administration Pain, Mild (1-3) Albuterol 2.5 mg 04/20/21 18:41 Albuterol 2.5 Mg/3 Ml Nebu IH Q3HRT PRN Shortness Of Breath Amiodarone HCl 200 mg 05/01/21 10:00 05/06/21 09:16 Amiodarone 200 Mg Tab PO 200 mg DAILY NAMAN Administration Amlodipine Besylate 10 mg 05/01/21 10:00 05/06/21 09:15 Amlodipine 10 Mg Tab PO 10 mg QDAY NAMAN Administration Lipase/Protease/Amylase 1 each 04/25/21 15:16 Lipase 10,500/Protease 25,000/Amylase 43,750 (Units) Dr Willingham FEEDTUBE PRN PRN For Clogged Feeding Tube Apixaban 5 mg 04/29/21 10:00 05/06/21 22:44 Apixaban 5 Mg Tab PO 5 mg Q12HR NAMAN Administration Protocol Aspirin 325 mg 04/21/21 10:00 05/06/21 09:16 Aspirin 325 Mg Tab PO 325 mg QDAY NAMAN Administration Atorvastatin Calcium 40 mg 04/20/21 22:00 05/06/21 22:44 Atorvastatin 40 Mg Tab PO 40 mg QHS NAMAN Administration Bisacodyl 10 mg 04/20/21 18:41 Bisacodyl 10 Mg Rect Supp FL QDAY PRN Constipation Cyclobenzaprine HCl 10 mg 04/20/21 19:00 04/24/21 12:36 Cyclobenzaprine 10 Mg Tab PO 10 mg TID PRN Administration Muscle Spasm Dextrose 0 ml 04/27/21 04:03 Dextrose 10% *Hypoglycemia IV PRN PRN Hypoglycemia Protocol Folic Acid 1 mg 04/20/21 18:59 05/06/21 09:17 Folic Acid 1 Mg Tab PO 1 mg QDAY NAMAN Administration Hydralazine HCl 10 mg 04/30/21 05:49 05/01/21 06:02 Hydralazine 20 Mg/1 Ml Inj IV 10 mg Q6HR PRN Administration Hypertension Hydralazine HCl 100 mg 05/01/21 12:00 05/06/21 22:43 Hydralazine 100 Mg Tab PO 100 mg TID NAMAN Administration Hydromorphone HCl 0.5 mg 04/20/21 18:41 04/22/21 16:30 Hydromorphone 1 Mg/1 Ml Inj IV 0.5 mg Q6H PRN Administration Pain , Severe (7-10) Sodium Chloride 1,000 mls @ 100 mls/hr 05/05/21 05:00 05/06/21 16:53 Nacl 0.45% 1000 Ml IV 100 mls/hr DIRECT NAMAN Administration Insulin Glargine 26 units 05/05/21 22:00 05/06/21 22:56 Insulin Glargine 100 Units/Ml SUB-Q 26 units QHS NAMAN Administration Insulin Human Lispro 0 unit 04/27/21 04:00 05/07/21 06:09 Insulin Lispro 100 Unit/Ml SUB-Q 3 unit Q6HR NAMAN Administration Protocol Lansoprazole 30 mg 04/28/21 11:00 05/06/21 09:19 Lansoprazole 30 Mg Solutab FEEDTUBE 30 mg QDAY NAMAN Administration Lorazepam 2 mg 04/20/21 18:44 04/28/21 23:41 Lorazepam 2 Mg/Ml Vial IV 2 mg Q1HR PRN Administration CIWA-Ar 8-15 Magnesium Hydroxide 30 ml 04/20/21 18:41 Magnesium Hydroxide (Mom) Oral Liqd Udc PO Q4H PRN Constipation Metoclopramide HCl 10 mg 04/20/21 18:41 Metoclopramide 10 Mg Tab PO Q6H PRN Nausea And Vomiting Metoprolol Tartrate 100 mg 04/29/21 12:00 05/06/21 22:44 Metoprolol Tartrate 50 Mg Tab PO 100 mg BID NAMAN Administration Ondansetron HCl 4 mg 04/20/21 18:41 Ondansetron 4 Mg/2 Ml Inj IV Q8H PRN Nausea And Vomiting Oxycodone/Acetaminophen 1 tab 04/20/21 18:41 04/28/21 18:05 Oxycodone /Acetaminophen 5-325mg Tab PO 1 tab Q12H PRN Administration Pain, Moderate (4-6) Promethazine HCl 25 mg 04/20/21 18:41 Promethazine 25 Mg Rect Supp FL Q6H PRN Nausea And Vomiting Simple Syrup 15 ml 04/25/21 15:16 Simple Syrup 15 Ml FEEDTUBE PRN PRN Hypoglycemia Simple Syrup 30 ml 04/25/21 15:16 Simple Syrup 15 Ml FEEDTUBE PRN PRN Hypoglycemia Sodium Bicarbonate 325 mg 04/25/21 15:16 Sodium Bicarbonate 325 Mg Tab FEEDTUBE PRN PRN For Clogged Feeding Tube Sodium Chloride 10 ml 04/20/21 18:41 04/25/21 22:44 Sodium Chloride 0.9% 10 Ml Flush Syringe IV 10 ml PRN PRN Administration LINE FLUSH Nutrition/Malnutrition Assess - Dietary Evaluation Nutrition/Malnutrition Findings: Nutrition Notes Start: 04/23/21 12:36 Freq: Status: Active Protocol: Document 05/02/21 15:10 ANNIKA (Rec: 05/02/21 15:26 ANNIKA [id number]) Nutrition Notes Initial or Follow up Brief Note Current Diagnosis Hypertension,Stroke Other Pertinent Diagnosis COVID-19, Atrial Fibrilation w /RVR, Dysphagia, Acute CVA. Current Diet TF-Jevity 1.2 Maurice @ 68 ml/hr ( since B 04/30). Height 6 ft 3 in Weight 79.5 kg [place] Body Weight (kg) 89.09 BMI 21.9 Weight change and time frame No body weight change reported in 2 days. Weight Status Appropriate Subjective/Other Information RD consult for routine F/U on TF tolerance. TF continues as prescribed and well tolerated, according to RN notes. Percent of energy/protein needs met: Prescribed Jevity 1.2 Maurice @ 68 ml/hr provides for energy/ protein needs (1,804 Kcal/77 g ) during LOS, 91% Kcal; 100% AA. #1 Nutrition Diagnosis Inadequate oral intake Diagnosis Progress(for reassessment Continues documentation) Is patient on ventilator? No Is Patient Ambulatory and/or Out of Bed No REE-([place]-[facility] Jeor-confined to bed) 2020.748 [facility]culation [facility] Additional Notes Protein: 0.8-1 g/Kg; 73-91 g/ day. Fluids: 1 ml/Kcal, or as per MD. Nutrition Intervention Nutrition Support: Continue Jevity 1.2 Maurice @ 68 ml/hr. Flush: 100 ml water Q 4 hr, or as per MD. Kcal 1,960 Protein (gm) 91 Carbohydrates (gm) 277 Fat (gm) 64 Fluid (mL) 1,318 Fiber (gm) 29 % RDI: 91% Kcal; 100% AA. Goal #1 Provide at least 75% of energy /protein needs through Enteral Feeding during LOS. Goal #2 Maintain body weight within +/ -3% of admission body weight during LOS. Follow-Up By: 05/09/21 Additional Comments Continue monitoring TF tolerance and BM.
[2021-05-07] MEDS: ASPIRIN 325 MG TAB PO SCH (10:01)
[2021-05-07] MEDS: APIXABAN 5 MG TAB PO SCH ×2 (10:01→21:00)
[2021-05-07] MEDS: FOLIC ACID 1 MG TAB PO SCH (10:01)
[2021-05-07] MEDS: METOPROLOL TARTRATE 50 MG TAB PO SCH ×2 (10:01→21:00)
[2021-05-07] MEDS: AMIODARONE 200 MG TAB PO SCH (10:01)
[2021-05-07] MEDS: amLODIPine 10 MG TAB PO SCH (10:01)
[2021-05-07] MEDS: LANSOPRAZOLE 30 MG SOLUTAB FEEDTUBE SCH (10:01)
[2021-05-07] MEDS: hydrALAZINE 100 MG TAB PO SCH ×3 (10:01→20:40)
[2021-05-07] MEDS: INSULIN GLARGINE 100 UNITS/ML SUB-Q SCH (21:00)
[2021-05-08] MEDS: INSULIN LISPRO 100 UNIT/ML SUB-Q SCH ×3 (05:24→17:47)
--- NOTE | 2021-05-08 08:59 | Progress Note ---
Assessment and Plan Assessment and plan: Patient is 61-year-old male past medical history of CVH with LHP, nicotine dependence, EtOH dependence who presented to the ED with a complaint of worsening left-sided weakness and difficulty speaking for 2 days. Patient was transported to [facility] where a code stroke was initiat ed. Patient was also discovered to be in new onset A. fib with RVR. Patient converted with IV Cardizem to sinus rhythm. Admitted for further mx. Assessment and plan -- Acute/subacute CVA Dysarthria and right hemiparesis -dysphagia reguired Pg tube feeding -New onset AT -- started on Eliquis 5 mg bid -Echo is with diastolic dysfunction with Ef#45-50% -MRI brain is with subacute multiinfarct cerebellar and brain stem / luba -US carotid <50% stenosis -CT with extensive microvascular changes Continue aspirin 325 mg daily Lipitor 40 mg daily. Physical therapy/Occupational Therapy recommended subacute rehab No resources, uninsured --BHASKAR, vasomotor nephropathy Trending down Monitor renal function, avoid nephrotoxins Renal dose medications --COVID-19 positive 04/27/2021 Oxygen, antibiotics, plenty fluids Treat the underlying cause --Type 2 diabetes mellitus : Uncontrolled Accu-Chek , sliding scale coverage , ADA diet , long-acting insulin dose adjusted as needed --Atrial fibrillation with RVR (new onset) rate controlled Paroxysmal atrial fibrillation, continue amiodarone and Eliquis --Dysphagia PEG placed by GI on 04/28/2021 Patient's daughter (Soniya Mabry at [phone]) agrees significant for PEG tube placement. -Discussed with daughter at length about overall goals of care. --Moderate malnutrition/hypoalbuminemia Albumin 3.2, nutrition supplements and supportive care --Advanced care planning -Disease education conducted, care plan discussed, diagnoses discussed, prognosis discussed, and patient acknowledges understanding with care plan -Time: +30 minutes --Full code status: Discharge planning per case management Pending placement. Patient is stable for discharge We will monitor closely and adjust management as needed Plan of care reviewed with the patient and his nurse Subjective Date of service: 05/04/21 Principal diagnosis: Acute CVA Interval history: Patient is 61-year-old male past medical history of CVH with LHP, nicotine dependence, EtOH dependence who presented to the ED with a complaint of worsening left-sided weakness and difficulty speaking for 2 days. Patient was transported to [facility] where a code stroke was initiated. Patient was also discovered to be in new onset A. fib with RVR. Patient converted with IV Cardizem to sinus rhythm. Admitted for further mx. Daily clinical course: 04/29: Resumed care. 61 y/o male presented with slurred speech, left sided weakness clinically no change, Order for TF, resumed eliquis, wait for CM to arrange placement. PT recommended [facility]. 04/30: Tolerating tube feeding, continue to follow renal function. Discussed with patient daughter about placement. Patient remains nonverbal with left-sided hemiparesis. MRI and neuro eval pending. May 01, 2021 Right-sided weakness persists Patient is s/p PEG tube placement Tolerating PEG tube feedings May 02, 2021 Right-sided weakness persists S/p PEG tube placement Confused Waiting for placement to subacute rehab May 03, 2021 S/p PEG tube placement Right-sided weakness persists Confused, Waiting for placement to subacute rehab May 04, 2021 S/p PEG tube placement Right-sided weakness persists, Confused Waiting for placement to subacute rehab/SNF Discussed with family the diagnosis and prognosis 05/05/21; awaiting placement Mild elevation of LFTs, multifactorial Uncontrolled blood sugars, increase Lantus to 26 units nightly PT recommend subacute rehab/SNF 05/06/21: Patient is tolerating PEG feeds, clinically stable for discharge Pending placement, barrier to discharge, no resources and uninsured CM trying for [facility] home hospice. I spoke with patient's daughter Ms. Byrnes At [phone] discussed in detail patient's condition, mild improvement, tests and reports, consultants recommendations, treatment and discharge planning issues, she had many questions answered all of them and encouraged her to call back if she has new concerns, 05/07/21; pending placement 05/08; pending placement History Interval history: I seen and examined the patient at the bedside Clinically no change Patient is awaiting placement Hospitalist Physical - Constitutional Vitals: Temp Pulse Resp BP Pulse Ox 97.6 F 64 20 142/91 96 05/08/21 04:59 05/08/21 04:59 05/08/21 04:59 05/08/21 04:59 05/08/21 04:59 General appearance: Present: no acute distress, well-nourished, other (Dysarthria, confused) - EENT Eyes: Present: PERRL, EOM intact - Neck Neck: Present: supple, normal ROM - Respiratory Respiratory effort: normal Respiratory: bilateral: diminished, negative: rales, rhonchi, wheezing - Cardiovascular Rhythm: regular Heart Sounds: Present: S1 & S2 - Extremities Extremities: no ischemia, No edema - Abdominal General gastrointestinal: soft, non-tender, non-distended, normal bowel sounds - Integumentary Integumentary: Present: clear, warm - Psychiatric Psychiatric: appropriate mood/affect, cooperative - Neurologic Neurologic: CNII-XII intact, moves all extremities HEART Score - HEART Score Troponin: Troponin T 0.011 ng/mL (0.00-0.029) 04/20/21 17:44 Results - Labs CBC & Chem 7: 05/04/21 05:54 05/06/21 05:32 Labs: Laboratory Last Values WBC 11.6 K/mm3 (4.5-11.0) H 05/04/21 05:54 RBC 4.92 M/mm3 (3.65-5.03) 05/04/21 05:54 Hgb 13.9 gm/dl (11.8-15.2) 05/04/21 05:54 Hct 43.0 % (35.5-45.6) 05/04/21 05:54 MCV 88 fl (84-94) 05/04/21 05:54 MCH 28 pg (28-32) 05/04/21 05:54 MCHC 32 % (32-34) 05/04/21 05:54 RDW 13.2 % (13.2-15.2) 05/04/21 05:54 Plt Count 518 K/mm3 (140-440) H 05/04/21 05:54 Lymph % (Auto) 11.5 % (13.4-35.0) L 05/04/21 05:54 [place] % (Auto) 12.8 % (0.0-7.3) H 05/04/21 05:54 Eos % (Auto) 2.2 % (0.0-4.3) 05/04/21 05:54 Baso % (Auto) 0.6 % (0.0-1.8) 05/04/21 05:54 Lymph # (Auto) 1.3 K/mm3 (1.2-5.4) 05/04/21 05:54 [place] # (Auto) 1.5 K/mm3 (0.0-0.8) H 05/04/21 05:54 Eos # (Auto) 0.3 K/mm3 (0.0-0.4) 05/04/21 05:54 Baso # (Auto) 0.1 K/mm3 (0.0-0.1) 05/04/21 05:54 Seg Neutrophils % 72.9 % (40.0-70.0) H 05/04/21 05:54 Seg Neutrophils # 8.5 K/mm3 (1.8-7.7) H 05/04/21 05:54 PT 14.1 Sec. (12.2-14.9) 04/28/21 13:53 INR 0.98 (0.87-1.13) 04/28/21 13:53 APTT 31.8 Sec. (24.2-36.6) 04/28/21 13:53 Thrombin Time 16.2 Sec. (15.1-19.6) 04/20/21 17:44 D-Dimer 894.94 ng/mlDDU (0-234) H 04/28/21 09:29 Sodium 153 mmol/L (137-145) H D 05/06/21 05:32 Potassium 4.6 mmol/L (3.6-5.0) 05/06/21 05:32 Chloride 115.2 mmol/L (98-107) H 05/06/21 05:32 Carbon Dioxide 24 mmol/L (22-30) 05/06/21 05:32 Anion Gap 18 mmol/L 05/06/21 05:32 BUN 29 mg/dL (9-20) H 05/06/21 05:32 Creatinine 1.6 mg/dL (0.8-1.3) H 05/06/21 05:32 Estimated GFR 53 ml/min 05/06/21 05:32 BUN/Creatinine Ratio 18 % 05/06/21 05:32 Glucose 345 mg/dL (75-100) H 05/06/21 05:32 POC Glucose 253 mg/dL (70-105) H 05/08/21 04:53 Calcium 8.8 mg/dL (8.4-10.2) 05/06/21 05:32 Magnesium 1.90 mg/dL (1.7-2.3) 04/20/21 17:44 Ferritin 1157.0 ng/mL (30.0-300.0) H 04/28/21 09:29 Total Bilirubin 0.20 mg/dL (0.1-1.2) 05/06/21 05:32 AST 25 units/L (5-40) 05/06/21 05:32 ALT 64 units/L (7-56) H 05/06/21 05:32 Alkaline Phosphatase 168 units/L (35-129) H 05/06/21 05:32 Lactate Dehydrogenase 287 units/L (91-180) H 04/28/21 09:29 Total Creatine Kinase 79 units/L (55-170) 04/20/21 17:44 Total Creatine Kinase 81 units/L (55-170) 04/20/21 17:44 CK-MB (CK-2) 2.1 ng/mL (0.0-4.0) 04/20/21 17:44 CK-MB (CK-2) Rel Index 2.6 (0-4) 04/20/21 17:44 Troponin T 0.011 ng/mL (0.00-0.029) 04/20/21 17:44 C-Reactive Protein 15.40 mg/dL (0.00-1.30) H 04/28/21 09:29 Total Protein 7.4 g/dL (6.3-8.2) 05/06/21 05:32 Albumin 3.2 g/dL (3.9-5) L 05/06/21 05:32 Albumin/Globulin Ratio 0.8 % 05/06/21 05:32 TSH 1.040 mlU/mL (0.270-4.200) 04/20/21 19:42 Free T4 1.16 ng/dL (0.76-1.46) 04/20/21 19:42 Urine Color Saira (Yellow) 04/26/21 Unknown Urine Turbidity Cloudy (Clear) 04/26/21 Unknown Urine pH 5.0 (5.0-7.0) 04/26/21 Unknown Ur Specific [place] 1.020 (1.003-1.030) 04/26/21 Unknown Urine Protein 100 mg/dl mg/dL (Negative) 04/26/21 Unknown Urine Glucose (UA) >=500 mg/dL (Negative) 04/26/21 Unknown Urine Ketones Neg mg/dL (Negative) 04/26/21 Unknown Urine Blood Mod (Negative) 04/26/21 Unknown Urine Nitrite Neg (Negative) 04/26/21 Unknown Urine Bilirubin Neg (Negative) 04/26/21 Unknown Urine Urobilinogen 2.0 mg/dL (<2.0) 04/26/21 Unknown Ur Leukocyte Esterase Neg (Negative) 04/26/21 Unknown Urine WBC (Auto) 1.0 /HPF (0.0-6.0) 04/20/21 18:19 Urine RBC (Auto) 3.0 /HPF (0.0-6.0) 04/20/21 18:19 U Epithel Cells (Auto) < 1.0 /HPF (0-13.0) 04/20/21 18:19 Hyaline Casts 5 /LPF 04/20/21 18:19 Urine Mucus Few /HPF 04/20/21 18:19 Plasma/Serum Alcohol < 0.01 % (0-0.07) 04/20/21 17:44 Coronavirus (PCR) Positive (Negative) A 04/27/21 09:00 Bravo/IV: Voiding Method Condom Catheter Active Medications - Current Medications Current Medications: Generic Name Dose Route Start Last Admin Trade Name Freq PRN Reason Stop Dose Admin Acetaminophen 650 mg 04/20/21 18:41 04/27/21 22:59 Acetaminophen 325 Mg Tab PO 650 mg Q4H PRN Administration Pain, Mild (1-3) Albuterol 2.5 mg 04/20/21 18:41 Albuterol 2.5 Mg/3 Ml Nebu IH Q3HRT PRN Shortness Of Breath Amiodarone HCl 200 mg 05/01/21 10:00 05/07/21 10:01 Amiodarone 200 Mg Tab PO 200 mg DAILY NAMAN Administration Amlodipine Besylate 10 mg 05/01/21 10:00 05/07/21 10:01 Amlodipine 10 Mg Tab PO 10 mg QDAY NAMAN Administration Lipase/Protease/Amylase 1 each 04/25/21 15:16 Lipase 10,500/Protease 25,000/Amylase 43,750 (Units) Dr Cap FEEDTUBE PRN PRN For Clogged Feeding Tube Apixaban 5 mg 04/29/21 10:00 05/07/21 21:00 Apixaban 5 Mg Tab PO 5 mg Q12HR NAMAN Administration Protocol Aspirin 325 mg 04/21/21 10:00 05/07/21 10:01 Aspirin 325 Mg Tab PO 325 mg QDAY NAMAN Administration Atorvastatin Calcium 40 mg 04/20/21 22:00 05/07/21 21:00 Atorvastatin 40 Mg Tab PO 40 mg QHS NAMAN Administration Bisacodyl 10 mg 04/20/21 18:41 Bisacodyl 10 Mg Rect Supp ME QDAY PRN Constipation Cyclobenzaprine HCl 10 mg 04/20/21 19:00 04/24/21 12:36 Cyclobenzaprine 10 Mg Tab PO 10 mg TID PRN Administration Muscle Spasm Dextrose 0 ml 04/27/21 04:03 Dextrose 10% *Hypoglycemia IV PRN PRN Hypoglycemia Protocol Folic Acid 1 mg 04/20/21 18:59 05/07/21 10:01 Folic Acid 1 Mg Tab PO 1 mg QDAY NAMAN Administration Hydralazine HCl 10 mg 04/30/21 05:49 05/01/21 06:02 Hydralazine 20 Mg/1 Ml Inj IV 10 mg Q6HR PRN Administration Hypertension Hydralazine HCl 100 mg 05/01/21 12:00 05/07/21 20:40 Hydralazine 100 Mg Tab PO 100 mg TID NAMAN Administration Hydromorphone HCl 0.5 mg 04/20/21 18:41 04/22/21 16:30 Hydromorphone 1 Mg/1 Ml Inj IV 0.5 mg Q6H PRN Administration Pain , Severe (7-10) Sodium Chloride 1,000 mls @ 100 mls/hr 05/05/21 05:00 05/06/21 16:53 Nacl 0.45% 1000 Ml IV 100 mls/hr DIRECT NAMAN Administration Insulin Glargine 26 units 05/05/21 22:00 05/07/21 21:00 Insulin Glargine 100 Units/Ml SUB-Q 26 units QHS NAMAN Administration Insulin Human Lispro 0 unit 04/27/21 04:00 05/08/21 05:24 Insulin Lispro 100 Unit/Ml SUB-Q 3 unit Q6HR NAMAN Administration Protocol Lansoprazole 30 mg 04/28/21 11:00 05/07/21 10:01 Lansoprazole 30 Mg Solutab FEEDTUBE 30 mg QDAY NAMAN Administration Lorazepam 2 mg 04/20/21 18:44 04/28/21 23:41 Lorazepam 2 Mg/Ml Vial IV 2 mg Q1HR PRN Administration CIWA-Ar 8-15 Magnesium Hydroxide 30 ml 04/20/21 18:41 Magnesium Hydroxide (Mom) Oral Liqd Udc PO Q4H PRN Constipation Metoclopramide HCl 10 mg 04/20/21 18:41 Metoclopramide 10 Mg Tab PO Q6H PRN Nausea And Vomiting Metoprolol Tartrate 100 mg 04/29/21 12:00 05/07/21 21:00 Metoprolol Tartrate 50 Mg Tab PO 100 mg BID NAMAN Administration Ondansetron HCl 4 mg 04/20/21 18:41 Ondansetron 4 Mg/2 Ml Inj IV Q8H PRN Nausea And Vomiting Oxycodone/Acetaminophen 1 tab 04/20/21 18:41 04/28/21 18:05 Oxycodone /Acetaminophen 5-325mg Tab PO 1 tab Q12H PRN Administration Pain, Moderate (4-6) Promethazine HCl 25 mg 04/20/21 18:41 Promethazine 25 Mg Rect Supp ME Q6H PRN Nausea And Vomiting Simple Syrup 15 ml 04/25/21 15:16 Simple Syrup 15 Ml FEEDTUBE PRN PRN Hypoglycemia Simple Syrup 30 ml 04/25/21 15:16 Simple Syrup 15 Ml FEEDTUBE PRN PRN Hypoglycemia Sodium Bicarbonate 325 mg 04/25/21 15:16 Sodium Bicarbonate 325 Mg Tab FEEDTUBE PRN PRN For Clogged Feeding Tube Sodium Chloride 10 ml 04/20/21 18:41 04/25/21 22:44 Sodium Chloride 0.9% 10 Ml Flush Syringe IV 10 ml PRN PRN Administration LINE FLUSH Nutrition/Malnutrition Assess - Dietary Evaluation Nutrition/Malnutrition Findings: Nutrition Notes Start: 04/23/21 12:36 Freq: Status: Active Protocol: Document 05/02/21 15:10 ANNIKA (Rec: 05/02/21 15:26 ANNIKA [id number]) Nutrition Notes Initial or Follow up Brief Note Current Diagnosis Hypertension,Stroke Other Pertinent Diagnosis COVID-19, Atrial Fibrilation w /RVR, Dysphagia, Acute CVA. Current Diet TF-Jevity 1.2 Maurice @ 68 ml/hr ( since B 04/30). Height 6 ft 3 in Weight 79.5 kg [place] Body Weight (kg) 89.09 BMI 21.9 Weight change and time frame No body weight change reported in 2 days. Weight Status Appropriate Subjective/Other Information RD consult for routine F/U on TF tolerance. TF continues as prescribed and well tolerated, according to RN notes. Percent of energy/protein needs met: Prescribed Jevity 1.2 Maurice @ 68 ml/hr provides for energy/ protein needs (1,804 Kcal/77 g ) during LOS, 91% Kcal; 100% AA. #1 Nutrition Diagnosis Inadequate oral intake Diagnosis Progress(for reassessment Continues documentation) Is patient on ventilator? No Is Patient Ambulatory and/or Out of Bed No REE-([place]-confined to bed) 2020.748 Calculation Used for Recommendations [facility] Additional Notes Protein: 0.8-1 g/Kg; 73-91 g/ day. Fluids: 1 ml/Kcal, or as per MD. Nutrition Intervention Nutrition Support: Continue Jevity 1.2 Maurice @ 68 ml/hr. Flush: 100 ml water Q 4 hr, or as per MD. Kcal 1,960 Protein (gm) 91 Carbohydrates (gm) 277 Fat (gm) 64 Fluid (mL) 1,318 Fiber (gm) 29 % RDI: 91% Kcal; 100% AA. Goal #1 Provide at least 75% of energy /protein needs through Enteral Feeding during LOS. Goal #2 Maintain body weight within +/ -3% of admission body weight during LOS. Follow-Up By: 05/09/21 Additional Comments Continue monitoring TF tolerance and BM.
[2021-05-08] MEDS: ASPIRIN 325 MG TAB PO SCH (09:39)
[2021-05-08] MEDS: METOPROLOL TARTRATE 50 MG TAB PO SCH ×2 (09:39→23:09)
[2021-05-08] MEDS: amLODIPine 10 MG TAB PO SCH (09:40)
[2021-05-08] MEDS: hydrALAZINE 100 MG TAB PO SCH ×3 (09:40→23:08)
[2021-05-08] MEDS: FOLIC ACID 1 MG TAB PO SCH (09:40)
[2021-05-08] MEDS: AMIODARONE 200 MG TAB PO SCH (09:40)
[2021-05-08] MEDS: LANSOPRAZOLE 30 MG SOLUTAB FEEDTUBE SCH (09:40)
[2021-05-08] MEDS: APIXABAN 5 MG TAB PO SCH ×2 (09:40→23:08)
[2021-05-08] MEDS: INSULIN GLARGINE 100 UNITS/ML SUB-Q SCH (23:18)
[2021-05-09] MEDS: INSULIN LISPRO 100 UNIT/ML SUB-Q SCH ×4 (07:49→19:51)
[2021-05-09] MEDS: amLODIPine 10 MG TAB PO SCH (09:13)
[2021-05-09] MEDS: APIXABAN 5 MG TAB PO SCH ×2 (09:14→22:26)
[2021-05-09] MEDS: METOPROLOL TARTRATE 50 MG TAB PO SCH ×2 (09:14→22:27)
[2021-05-09] MEDS: LANSOPRAZOLE 30 MG SOLUTAB FEEDTUBE SCH (09:15)
[2021-05-09] MEDS: hydrALAZINE 100 MG TAB PO SCH ×3 (09:15→22:28)
[2021-05-09] MEDS: ASPIRIN 325 MG TAB PO SCH (09:15)
[2021-05-09] MEDS: FOLIC ACID 1 MG TAB PO SCH (09:15)
[2021-05-09] MEDS: AMIODARONE 200 MG TAB PO SCH (09:15)
[2021-05-09] MEDS: INSULIN NPH/REGULAR 70/30 INJ SUB-Q SCH ×2 (13:30→19:32)
[2021-05-10] MEDS: INSULIN LISPRO 100 UNIT/ML SUB-Q SCH ×4 (01:38→17:42)
[2021-05-10] MEDS: AMIODARONE 200 MG TAB PO SCH ×2 (08:02→10:00)
[2021-05-10] MEDS: LANSOPRAZOLE 30 MG SOLUTAB FEEDTUBE SCH ×2 (08:02→10:00)
[2021-05-10] MEDS: FOLIC ACID 1 MG TAB PO SCH ×2 (08:02→10:00)
[2021-05-10] MEDS: ACETAMINOPHEN 325 MG TAB PO PRN (08:02)
[2021-05-10] MEDS: hydrALAZINE 100 MG TAB PO SCH ×3 (08:02→22:22)
[2021-05-10] MEDS: METOPROLOL TARTRATE 50 MG TAB PO SCH ×3 (08:02→22:21)
[2021-05-10] MEDS: INSULIN NPH/REGULAR 70/30 INJ SUB-Q SCH ×2 (08:02→17:42)
[2021-05-10] MEDS: APIXABAN 5 MG TAB PO SCH ×3 (08:02→22:22)
[2021-05-10] MEDS: ASPIRIN 325 MG TAB PO SCH ×2 (08:03→10:00)
--- NOTE | 2021-05-10 10:36 | Progress Note ---
Assessment and Plan Assessment and plan: Patient is 61-year-old male past medical history of CVH with LHP, nicotine dependence, EtOH dependence who presented to the ED with a complaint of worsening left-sided weakness and difficulty speaking for 2 days. Patient was transported to [facility] where a code stroke was initiat ed. Patient was also discovered to be in new onset A. fib with RVR. Patient converted with IV Cardizem to sinus rhythm. Admitted for further mx. Assessment and plan -- Acute/subacute CVA Dysarthria and right hemiparesis -dysphagia reguired Pg tube feeding -New onset AT -- started on Eliquis 5 mg bid -Echo is with diastolic dysfunction with Ef#45-50% -MRI brain is with subacute multiinfarct cerebellar and brain stem / luba -US carotid <50% stenosis -CT with extensive microvascular changes Continue aspirin 325 mg daily Lipitor 40 mg daily. Physical therapy/Occupational Therapy recommended subacute rehab No resources, uninsured --Dysarthria; Continue speech therapy --Dysphagia PEG placed by GI on 04/28/2021 Continue PEG feeds Aspiration precautions --BHASKAR, vasomotor nephropathy Trending down, free water via PEG Monitor renal function, avoid nephrotoxins Creatinine trending down, renal dosing medications --COVID-19 positive 04/27/2021 Oxygen, antibiotics, plenty fluids Treat the underlying cause --Type 2 diabetes mellitus : Uncontrolled Accu-Chek , sliding scale coverage , ADA diet , long-acting insulin dose adjusted as needed --Atrial fibrillation with RVR (new onset) rate controlled Paroxysmal atrial fibrillation, continue amiodarone and Eliquis --Moderate malnutrition/hypoalbuminemia Albumin 3.2, nutrition supplements and supportive care --Advanced care planning -Disease education conducted, care plan discussed, diagnoses discussed, prognosis discussed, and patient acknowledges understanding with care plan -Time: +30 minutes --Full code status: Discharge planning per case management Pending placement. Patient is stable for discharge We will monitor closely and adjust management as needed Plan of care reviewed with the patient and his nurse Brief history and hospital course: Patient is 61-year-old male past medical history of CVH with LHP, nicotine dependence, EtOH dependence who presented to the ED with a complaint of worsening left-sided weakness and difficulty speaking for 2 days. Patient was transported to [facility] where a code stroke was initiated. Patient was also discovered to be in new onset A. fib with RVR. Patient converted with IV Cardizem to sinus rhythm. Admitted for further mx. Daily clinical course: 04/29: Resumed care. 61 y/o male presented with slurred speech, left sided weakness clinically no change, Order for TF, resumed eliquis, wait for CM to arrange placement. PT recommended [facility]. 04/30: Tolerating tube feeding, continue to follow renal function. Discussed with patient daughter about placement. Patient remains nonverbal with left-sided hemiparesis. MRI and neuro eval pending. May 01, 2021 Right-sided weakness persists Patient is s/p PEG tube placement Tolerating PEG tube feedings May 02, 2021 Right-sided weakness persists S/p PEG tube placement Confused Waiting for placement to subacute rehab May 03, 2021 S/p PEG tube placement Right-sided weakness persists Confused, Waiting for placement to subacute rehab May 04, 2021 S/p PEG tube placement Right-sided weakness persists, Confused Waiting for placement to subacute rehab/SNF Discussed with family the diagnosis and prognosis 05/05/21; awaiting placement Mild elevation of LFTs, multifactorial Uncontrolled blood sugars, increase Lantus to 26 units nightly PT recommend subacute rehab/SNF 05/06/21: Patient is tolerating PEG feeds, clinically stable for discharge Pending placement, barrier to discharge, no resources and uninsured CM trying for [facility]. I spoke with patient's daughter Ms. Byrnes At [phone] discussed in detail patient's condition, mild improvement, tests and reports, consultants recommendations, treatment and discharge planning issues, she had many questions answered all of them and encouraged her to call back if she has new concerns, 05/07/21; pending placement 05/08; pending placement 05/09; continue current management, awaiting placement Patient is medically stable for discharge History Interval history: I have seen and examined the patient in his room this morning during morning rounds patient's chart and medications reviewed Patient is confused agitated sometimes requiring restraints PEG tube in place Hospitalist Physical - Constitutional Vitals: Temp Pulse Resp BP Pulse Ox 98.9 F 64 20 150/94 97 05/10/21 05:29 05/10/21 05:29 05/10/21 05:29 05/10/21 05:29 05/10/21 09:00 General appearance: Present: no acute distress, well-nourished, other (Dysarthria, confused) - EENT Eyes: Present: PERRL, EOM intact - Neck Neck: Present: supple, normal ROM - Respiratory Respiratory effort: normal Respiratory: bilateral: diminished, negative: rales, rhonchi, wheezing - Cardiovascular Rhythm: regular Heart Sounds: Present: S1 & S2 - Extremities Extremities: no ischemia, No edema - Abdominal General gastrointestinal: soft, non-tender, non-distended, normal bowel sounds, other (PEG tube in place) - Integumentary Integumentary: Present: clear, warm - Psychiatric Psychiatric: agitated, other (Confused) - Neurologic Neurologic: moves all extremities (Right hemiparesis, dysarthria, dysphagia, PEG tube) HEART Score - HEART Score Troponin: Troponin T 0.011 ng/mL (0.00-0.029) 04/20/21 17:44 Results - Labs CBC & Chem 7: 05/04/21 05:54 05/06/21 05:32 Labs: Laboratory Last Values WBC 11.6 K/mm3 (4.5-11.0) H 05/04/21 05:54 RBC 4.92 M/mm3 (3.65-5.03) 05/04/21 05:54 Hgb 13.9 gm/dl (11.8-15.2) 05/04/21 05:54 Hct 43.0 % (35.5-45.6) 05/04/21 05:54 MCV 88 fl (84-94) 05/04/21 05:54 MCH 28 pg (28-32) 05/04/21 05:54 MCHC 32 % (32-34) 05/04/21 05:54 RDW 13.2 % (13.2-15.2) 05/04/21 05:54 Plt Count 518 K/mm3 (140-440) H 05/04/21 05:54 Lymph % (Auto) 11.5 % (13.4-35.0) L 05/04/21 05:54 Desha % (Auto) 12.8 % (0.0-7.3) H 05/04/21 05:54 Eos % (Auto) 2.2 % (0.0-4.3) 05/04/21 05:54 Baso % (Auto) 0.6 % (0.0-1.8) 05/04/21 05:54 Lymph # (Auto) 1.3 K/mm3 (1.2-5.4) 05/04/21 05:54 Desha # (Auto) 1.5 K/mm3 (0.0-0.8) H 05/04/21 05:54 Eos # (Auto) 0.3 K/mm3 (0.0-0.4) 05/04/21 05:54 Baso # (Auto) 0.1 K/mm3 (0.0-0.1) 05/04/21 05:54 Seg Neutrophils % 72.9 % (40.0-70.0) H 05/04/21 05:54 Seg Neutrophils # 8.5 K/mm3 (1.8-7.7) H 05/04/21 05:54 PT 14.1 Sec. (12.2-14.9) 04/28/21 13:53 INR 0.98 (0.87-1.13) 04/28/21 13:53 APTT 31.8 Sec. (24.2-36.6) 04/28/21 13:53 Thrombin Time 16.2 Sec. (15.1-19.6) 04/20/21 17:44 D-Dimer 894.94 ng/mlDDU (0-234) H 04/28/21 09:29 Sodium 153 mmol/L (137-145) H D 05/06/21 05:32 Potassium 4.6 mmol/L (3.6-5.0) 05/06/21 05:32 Chloride 115.2 mmol/L (98-107) H 05/06/21 05:32 Carbon Dioxide 24 mmol/L (22-30) 05/06/21 05:32 Anion Gap 18 mmol/L 05/06/21 05:32 BUN 29 mg/dL (9-20) H 05/06/21 05:32 Creatinine 1.6 mg/dL (0.8-1.3) H 05/06/21 05:32 Estimated GFR 53 ml/min 05/06/21 05:32 BUN/Creatinine Ratio 18 % 05/06/21 05:32 Glucose 345 mg/dL (75-100) H 05/06/21 05:32 POC Glucose 143 mg/dL (70-105) H 05/10/21 05:27 Calcium 8.8 mg/dL (8.4-10.2) 05/06/21 05:32 Magnesium 1.90 mg/dL (1.7-2.3) 04/20/21 17:44 Ferritin 1157.0 ng/mL (30.0-300.0) H 04/28/21 09:29 Total Bilirubin 0.20 mg/dL (0.1-1.2) 05/06/21 05:32 AST 25 units/L (5-40) 05/06/21 05:32 ALT 64 units/L (7-56) H 05/06/21 05:32 Alkaline Phosphatase 168 units/L (35-129) H 05/06/21 05:32 Lactate Dehydrogenase 287 units/L (91-180) H 04/28/21 09:29 Total Creatine Kinase 79 units/L (55-170) 04/20/21 17:44 Total Creatine Kinase 81 units/L (55-170) 04/20/21 17:44 CK-MB (CK-2) 2.1 ng/mL (0.0-4.0) 04/20/21 17:44 CK-MB (CK-2) Rel Index 2.6 (0-4) 04/20/21 17:44 Troponin T 0.011 ng/mL (0.00-0.029) 04/20/21 17:44 C-Reactive Protein 15.40 mg/dL (0.00-1.30) H 04/28/21 09:29 Total Protein 7.4 g/dL (6.3-8.2) 05/06/21 05:32 Albumin 3.2 g/dL (3.9-5) L 05/06/21 05:32 Albumin/Globulin Ratio 0.8 % 05/06/21 05:32 TSH 1.040 mlU/mL (0.270-4.200) 04/20/21 19:42 Free T4 1.16 ng/dL (0.76-1.46) 04/20/21 19:42 Urine Color Saira (Yellow) 04/26/21 Unknown Urine Turbidity Cloudy (Clear) 04/26/21 Unknown Urine pH 5.0 (5.0-7.0) 04/26/21 Unknown Ur Specific [place] 1.020 (1.003-1.030) 04/26/21 Unknown Urine Protein 100 mg/dl mg/dL (Negative) 04/26/21 Unknown Urine Glucose (UA) >=500 mg/dL (Negative) 04/26/21 Unknown Urine Ketones Neg mg/dL (Negative) 04/26/21 Unknown Urine Blood Mod (Negative) 04/26/21 Unknown Urine Nitrite Neg (Negative) 04/26/21 Unknown Urine Bilirubin Neg (Negative) 04/26/21 Unknown Urine Urobilinogen 2.0 mg/dL (<2.0) 04/26/21 Unknown Ur Leukocyte Esterase Neg (Negative) 04/26/21 Unknown Urine WBC (Auto) 1.0 /HPF (0.0-6.0) 04/20/21 18:19 Urine RBC (Auto) 3.0 /HPF (0.0-6.0) 04/20/21 18:19 U Epithel Cells (Auto) < 1.0 /HPF (0-13.0) 04/20/21 18:19 Hyaline Casts 5 /LPF 04/20/21 18:19 Urine Mucus Few /HPF 04/20/21 18:19 Plasma/Serum Alcohol < 0.01 % (0-0.07) 04/20/21 17:44 Coronavirus (PCR) Negative (Negative) 05/09/21 09:20 Bravo/IV: Voiding Method Condom Catheter Active Medications - Current Medications Current Medications: Generic Name Dose Route Start Last Admin Trade Name Freq PRN Reason Stop Dose Admin Acetaminophen 650 mg 04/20/21 18:41 05/10/21 08:02 Acetaminophen 325 Mg Tab PO 650 mg Q4H PRN Administration Pain, Mild (1-3) Albuterol 2.5 mg 04/20/21 18:41 Albuterol 2.5 Mg/3 Ml Nebu IH Q3HRT PRN Shortness Of Breath Amiodarone HCl 200 mg 05/01/21 10:00 05/10/21 08:02 Amiodarone 200 Mg Tab PO 200 mg DAILY NAMAN Administration Amlodipine Besylate 10 mg 05/01/21 10:00 05/09/21 09:13 Amlodipine 10 Mg Tab PO 10 mg QDAY NAMAN Administration Lipase/Protease/Amylase 1 each 04/25/21 15:16 Lipase 10,500/Protease 25,000/Amylase 43,750 (Units) Dr Willingham FEEDTUBE PRN PRN For Clogged Feeding Tube Apixaban 5 mg 04/29/21 10:00 05/10/21 08:02 Apixaban 5 Mg Tab PO 5 mg Q12HR NAMAN Administration Protocol Aspirin 325 mg 04/21/21 10:00 05/10/21 08:03 Aspirin 325 Mg Tab PO 325 mg QDAY NAMAN Administration Atorvastatin Calcium 40 mg 04/20/21 22:00 05/09/21 22:27 Atorvastatin 40 Mg Tab PO 40 mg QHS NAMAN Administration Bisacodyl 10 mg 04/20/21 18:41 Bisacodyl 10 Mg Rect Supp RI QDAY PRN Constipation Cyclobenzaprine HCl 10 mg 04/20/21 19:00 04/24/21 12:36 Cyclobenzaprine 10 Mg Tab PO 10 mg TID PRN Administration Muscle Spasm Dextrose 0 ml 04/27/21 04:03 Dextrose 10% *Hypoglycemia IV PRN PRN Hypoglycemia Protocol Folic Acid 1 mg 04/20/21 18:59 05/10/21 08:02 Folic Acid 1 Mg Tab PO 1 mg QDAY NAMAN Administration Hydralazine HCl 10 mg 04/30/21 05:49 05/01/21 06:02 Hydralazine 20 Mg/1 Ml Inj IV 10 mg Q6HR PRN Administration Hypertension Hydralazine HCl 100 mg 05/01/21 12:00 05/10/21 08:02 Hydralazine 100 Mg Tab PO 100 mg TID NAMAN Administration Hydromorphone HCl 0.5 mg 04/20/21 18:41 04/22/21 16:30 Hydromorphone 1 Mg/1 Ml Inj IV 0.5 mg Q6H PRN Administration Pain , Severe (7-10) Sodium Chloride 1,000 mls @ 100 mls/hr 05/05/21 05:00 05/06/21 16:53 Nacl 0.45% 1000 Ml IV 100 mls/hr DIRECT NAMAN Administration Insulin Human Isoph/Insulin Regular 10 unit 05/09/21 10:00 05/10/21 08:02 Insulin Nph/Regular 70/30 Inj SUB-Q 10 unit BIDDIAB NAMAN Administration Insulin Human Lispro 0 unit 04/27/21 04:00 05/10/21 06:16 Insulin Lispro 100 Unit/Ml SUB-Q Not Given Q6HR [facility] Protocol Lansoprazole 30 mg 04/28/21 11:00 05/10/21 08:02 Lansoprazole 30 Mg Solutab FEEDTUBE 30 mg QDAY NAMAN Administration Lorazepam 2 mg 04/20/21 18:44 04/28/21 23:41 Lorazepam 2 Mg/Ml Vial IV 2 mg Q1HR PRN Administration CIWA-Ar 8-15 Magnesium Hydroxide 30 ml 04/20/21 18:41 Magnesium Hydroxide (Mom) Oral Liqd Udc PO Q4H PRN Constipation Metoclopramide HCl 10 mg 04/20/21 18:41 Metoclopramide 10 Mg Tab PO Q6H PRN Nausea And Vomiting Metoprolol Tartrate 100 mg 04/29/21 12:00 05/10/21 08:02 Metoprolol Tartrate 50 Mg Tab PO 100 mg BID NAMAN Administration Ondansetron HCl 4 mg 04/20/21 18:41 Ondansetron 4 Mg/2 Ml Inj IV Q8H PRN Nausea And Vomiting Oxycodone/Acetaminophen 1 tab 04/20/21 18:41 04/28/21 18:05 Oxycodone /Acetaminophen 5-325mg Tab PO 1 tab Q12H PRN Administration Pain, Moderate (4-6) Promethazine HCl 25 mg 04/20/21 18:41 Promethazine 25 Mg Rect Supp RI Q6H PRN Nausea And Vomiting Simple Syrup 15 ml 04/25/21 15:16 Simple Syrup 15 Ml FEEDTUBE PRN PRN Hypoglycemia Simple Syrup 30 ml 04/25/21 15:16 Simple Syrup 15 Ml FEEDTUBE PRN PRN Hypoglycemia Sodium Bicarbonate 325 mg 04/25/21 15:16 Sodium Bicarbonate 325 Mg Tab FEEDTUBE PRN PRN For Clogged Feeding Tube Sodium Chloride 10 ml 04/20/21 18:41 04/25/21 22:44 Sodium Chloride 0.9% 10 Ml Flush Syringe IV 10 ml PRN PRN Administration LINE FLUSH Nutrition/Malnutrition Assess - Dietary Evaluation Nutrition/Malnutrition Findings: Nutrition Notes Start: 04/23/21 12:36 Freq: Status: Active Protocol: Document 05/09/21 13:59 ANNIKA (Rec: 05/09/21 14:35 ANNIKA [email or web address]) Nutrition Notes Initial or Follow up Reassessment Current Diagnosis Acute Kidney Injury,Diabetes, Malnutrition Other Pertinent Diagnosis COVID-19, Atrial Fibrilation w /RVR, Dysphagia, Acute CVA. Current Diet TF-Glucerna 1.2 Maurice @ 63 ml/hr (since D 05/09). Labs/Tests 05/09: N/A. Pertinent Medications 05/09: Folic Acid, Insulin, others nutritionally unremarkable. Height 6 ft 3 in Weight 79.5 kg [place] Body Weight (kg) 89.09 BMI 21.9 Weight change and time frame No body weight change reported in 15 days. Weight Status Appropriate Subjective/Other Information RD consult for routine F/U on TF tolerance. TF continues as prescribed and well tolerated, according to RN notes. Diagnosis of Uncontrolled diabetes on 05/05; I will change TF to Glucerna to support BG control. Percent of energy/protein needs met: Prescribed Glucerna 1.2 Maurice @ 63 ml/hr provides for energy/ protein needs (1,819 Kcal/91 g ) during LOS, 90% Kcal; 100% AA. Burn Absent Trauma Absent GI Symptoms None Food Allergy No Skin Integrity/Comment Unspecifies area of concern, redness Current % PO Other Minimum of two criteria No #1 Nutrition Diagnosis Inadequate oral intake Diagnosis Progress(for reassessment Continues documentation) Is patient on ventilator? No Is Patient Ambulatory and/or Out of Bed No REE-([facility]-confined to bed) 2020.748 Calculation Used for Recommendations [facility] Additional Notes Protein: 0.8-1 g/Kg; 73-91 g/ day. Fluids: 1 ml/Kcal, or as per MD. Nutrition Intervention Nutrition Support: Change to Glucerna 1.2 Maurice @ 63 ml/hr. Flush: 130 ml water Q 4 hr, or as per MD. Kcal 1,819 Protein (gm) 91 Carbohydrates (gm) 174 Fat (gm) 91 Fluid (mL) 1,220 Fiber (gm) 24 % RDI: 90% Kcal; 100% AA. Goal #1 Provide at least 75% of energy /protein needs through Enteral Feeding during LOS. Goal #2 Maintain body weight within +/ -3% of admission body weight during LOS. Follow-Up By: 05/12/21 Additional Comments Continue monitoring TF tolerance and BM.
--- NOTE | 2021-05-10 10:46 | Progress Note ---
Assessment and Plan Assessment and plan: Patient is 61-year-old male past medical history of CVH with LHP, nicotine dependence, EtOH dependence who presented to the ED with a complaint of worsening left-sided weakness and difficulty speaking for 2 days. Patient was transported to [facility] where a code stroke was initiat ed. Patient was also discovered to be in new onset A. fib with RVR. Patient converted with IV Cardizem to sinus rhythm. Admitted for further mx. Assessment and plan -- Acute/subacute CVA Dysarthria and right hemiparesis -dysphagia reguired Pg tube feeding -New onset AT -- started on Eliquis 5 mg bid -Echo is with diastolic dysfunction with Ef#45-50% -MRI brain is with subacute multiinfarct cerebellar and brain stem / luba -US carotid <50% stenosis -CT with extensive microvascular changes Continue aspirin 325 mg daily Lipitor 40 mg daily. Physical therapy/Occupational Therapy recommended subacute rehab No resources, uninsured --Dysarthria; Continue speech therapy --Dysphagia PEG placed by GI on 04/28/2021 Continue PEG feeds Aspiration precautions --Acute metabolic encephalopathy; Multifactorial, secondary to neurological causes stroke dysarthria dysphagia Metabolic due to kidney disease diabetes Treat the underlying cause, supportive care -BHASKAR, vasomotor nephropathy Trending down, free water via PEG Monitor renal function, avoid nephrotoxins Creatinine trending down, renal dosing medications --COVID-19 positive 04/27/2021 Oxygen, antibiotics, plenty fluids Treat the underlying cause --Type 2 diabetes mellitus : Uncontrolled Accu-Chek , sliding scale coverage , ADA diet , long-acting insulin dose adjusted as needed --Atrial fibrillation with RVR (new onset) rate controlled Paroxysmal atrial fibrillation, continue amiodarone and Eliquis --Moderate malnutrition/hypoalbuminemia Albumin 3.2, nutrition supplements and supportive care --Advanced care planning -Disease education conducted, care plan discussed, diagnoses discussed, prognosis discussed, and patient acknowledges understanding with care plan -Time: +30 minutes --Full code status: Discharge planning per case management Pending placement. Patient is stable for discharge We will monitor closely and adjust management as needed Plan of care reviewed with the patient and his nurse Brief history and hospital course: Patient is 61-year-old male past medical history of CVH with LHP, nicotine d ependence, EtOH dependence who presented to the ED with a complaint of worsening left-sided weakness and difficulty speaking for 2 days. Patient was transported to [facility] where a code stroke was initiated. Patient was also discovered to be in new onset A. fib with RVR. Patient converted with IV Cardizem to sinus rhythm. Admitted for further mx. Daily clinical course: 04/29: Resumed care. 61 y/o male presented with slurred speech, left sided weakness clinically no change, Order for TF, resumed eliquis, wait for CM to arrange placement. PT recommended [facility]. 04/30: Tolerating tube feeding, continue to follow renal function. Discussed with patient daughter about placement. Patient remains nonverbal with left-sided hemiparesis. MRI and neuro eval pending. May 01, 2021 Right-sided weakness persists Patient is s/p PEG tube placement Tolerating PEG tube feedings May 02, 2021 Right-sided weakness persists S/p PEG tube placement Confused Waiting for placement to subacute rehab May 03, 2021 S/p PEG tube placement Right-sided weakness persists Confused, Waiting for placement to subacute rehab May 04, 2021 S/p PEG tube placement Right-sided weakness persists, Confused Waiting for placement to subacute rehab/SNF Discussed with family the diagnosis and prognosis 05/05/21; awaiting placement Mild elevation of LFTs, multifactorial Uncontrolled blood sugars, increase Lantus to 26 units nightly PT recommend subacute rehab/SNF 05/06/21: Patient is tolerating PEG feeds, clinically stable for discharge Pending placement, barrier to discharge, no resources and uninsured CM trying for [facility] hospice. I spoke with patient's daughter Ms. Byrnes At [phone] discussed in detail patient's condition, mild improvement, tests and reports, consultants recommendations, treatment and discharge planning issues, she had many questions answered all of them and encouraged her to call back if she has new concerns, 05/07/21; pending placement 05/08; pending placement 05/09; continue current management, awaiting placement, Patient is medically stable for discharge 05/10 continue current management;, pending placement History Interval history: Patient with acute CVA with right-sided hemiparesis .dysarthria .dysphagia status post PEG placement .awaiting placement I seen and examined the patient at the bedside this morning Patient's chart and medications reviewed No new events reported by the nursing staff Vital signs noted Hospitalist Physical - Constitutional Vitals: Temp Pulse Resp BP Pulse Ox 98.9 F 64 20 150/94 97 05/10/21 05:29 05/10/21 05:29 05/10/21 05:29 05/10/21 05:29 05/10/21 09:00 General appearance: Present: no acute distress, well-nourished, other (Dysarthria, confused) - EENT Eyes: Present: PERRL, EOM intact - Neck Neck: Present: supple, normal ROM - Respiratory Respiratory effort: normal Respiratory: bilateral: diminished, negative: rales, rhonchi, wheezing - Cardiovascular Rhythm: regular Heart Sounds: Present: S1 & S2 - Extremities Extremities: no ischemia, No edema - Abdominal General gastrointestinal: soft, non-tender, non-distended, normal bowel sounds - Integumentary Integumentary: Present: clear, warm - Psychiatric Psychiatric: other (Noncommunicative) - Neurologic Neurologic: moves all extremities (Right hemiparesis, dysarthria, dysphagia, encephalopathy) HEART Score - HEART Score Troponin: Troponin T 0.011 ng/mL (0.00-0.029) 04/20/21 17:44 Results - Labs CBC & Chem 7: 05/04/21 05:54 05/06/21 05:32 Labs: Laboratory Last Values WBC 11.6 K/mm3 (4.5-11.0) H 05/04/21 05:54 RBC 4.92 M/mm3 (3.65-5.03) 05/04/21 05:54 Hgb 13.9 gm/dl (11.8-15.2) 05/04/21 05:54 Hct 43.0 % (35.5-45.6) 05/04/21 05:54 MCV 88 fl (84-94) 05/04/21 05:54 MCH 28 pg (28-32) 05/04/21 05:54 MCHC 32 % (32-34) 05/04/21 05:54 RDW 13.2 % (13.2-15.2) 05/04/21 05:54 Plt Count 518 K/mm3 (140-440) H 05/04/21 05:54 Lymph % (Auto) 11.5 % (13.4-35.0) L 05/04/21 05:54 [place] % (Auto) 12.8 % (0.0-7.3) H 05/04/21 05:54 Eos % (Auto) 2.2 % (0.0-4.3) 05/04/21 05:54 Baso % (Auto) 0.6 % (0.0-1.8) 05/04/21 05:54 Lymph # (Auto) 1.3 K/mm3 (1.2-5.4) 05/04/21 05:54 [place] # (Auto) 1.5 K/mm3 (0.0-0.8) H 05/04/21 05:54 Eos # (Auto) 0.3 K/mm3 (0.0-0.4) 05/04/21 05:54 Baso # (Auto) 0.1 K/mm3 (0.0-0.1) 05/04/21 05:54 Seg Neutrophils % 72.9 % (40.0-70.0) H 05/04/21 05:54 Seg Neutrophils # 8.5 K/mm3 (1.8-7.7) H 05/04/21 05:54 PT 14.1 Sec. (12.2-14.9) 04/28/21 13:53 INR 0.98 (0.87-1.13) 04/28/21 13:53 APTT 31.8 Sec. (24.2-36.6) 04/28/21 13:53 Thrombin Time 16.2 Sec. (15.1-19.6) 04/20/21 17:44 D-Dimer 894.94 ng/mlDDU (0-234) H 04/28/21 09:29 Sodium 153 mmol/L (137-145) H D 05/06/21 05:32 Potassium 4.6 mmol/L (3.6-5.0) 05/06/21 05:32 Chloride 115.2 mmol/L (98-107) H 05/06/21 05:32 Carbon Dioxide 24 mmol/L (22-30) 05/06/21 05:32 Anion Gap 18 mmol/L 05/06/21 05:32 BUN 29 mg/dL (9-20) H 05/06/21 05:32 Creatinine 1.6 mg/dL (0.8-1.3) H 05/06/21 05:32 Estimated GFR 53 ml/min 05/06/21 05:32 BUN/Creatinine Ratio 18 % 05/06/21 05:32 Glucose 345 mg/dL (75-100) H 05/06/21 05:32 POC Glucose 143 mg/dL (70-105) H 05/10/21 05:27 Calcium 8.8 mg/dL (8.4-10.2) 05/06/21 05:32 Magnesium 1.90 mg/dL (1.7-2.3) 04/20/21 17:44 Ferritin 1157.0 ng/mL (30.0-300.0) H 04/28/21 09:29 Total Bilirubin 0.20 mg/dL (0.1-1.2) 05/06/21 05:32 AST 25 units/L (5-40) 05/06/21 05:32 ALT 64 units/L (7-56) H 05/06/21 05:32 Alkaline Phosphatase 168 units/L (35-129) H 05/06/21 05:32 Lactate Dehydrogenase 287 units/L (91-180) H 04/28/21 09:29 Total Creatine Kinase 79 units/L (55-170) 04/20/21 17:44 Total Creatine Kinase 81 units/L (55-170) 04/20/21 17:44 CK-MB (CK-2) 2.1 ng/mL (0.0-4.0) 04/20/21 17:44 CK-MB (CK-2) Rel Index 2.6 (0-4) 04/20/21 17:44 Troponin T 0.011 ng/mL (0.00-0.029) 04/20/21 17:44 C-Reactive Protein 15.40 mg/dL (0.00-1.30) H 04/28/21 09:29 Total Protein 7.4 g/dL (6.3-8.2) 05/06/21 05:32 Albumin 3.2 g/dL (3.9-5) L 05/06/21 05:32 Albumin/Globulin Ratio 0.8 % 05/06/21 05:32 TSH 1.040 mlU/mL (0.270-4.200) 04/20/21 19:42 Free T4 1.16 ng/dL (0.76-1.46) 04/20/21 19:42 Urine Color Saira (Yellow) 04/26/21 Unknown Urine Turbidity Cloudy (Clear) 04/26/21 Unknown Urine pH 5.0 (5.0-7.0) 04/26/21 Unknown Ur Specific [place] 1.020 (1.003-1.030) 04/26/21 Unknown Urine Protein 100 mg/dl mg/dL (Negative) 04/26/21 Unknown Urine Glucose (UA) >=500 mg/dL (Negative) 04/26/21 Unknown Urine Ketones Neg mg/dL (Negative) 04/26/21 Unknown Urine Blood Mod (Negative) 04/26/21 Unknown Urine Nitrite Neg (Negative) 04/26/21 Unknown Urine Bilirubin Neg (Negative) 04/26/21 Unknown Urine Urobilinogen 2.0 mg/dL (<2.0) 04/26/21 Unknown Ur Leukocyte Esterase Neg (Negative) 04/26/21 Unknown Urine WBC (Auto) 1.0 /HPF (0.0-6.0) 04/20/21 18:19 Urine RBC (Auto) 3.0 /HPF (0.0-6.0) 04/20/21 18:19 U Epithel Cells (Auto) < 1.0 /HPF (0-13.0) 04/20/21 18:19 Hyaline Casts 5 /LPF 04/20/21 18:19 Urine Mucus Few /HPF 04/20/21 18:19 Plasma/Serum Alcohol < 0.01 % (0-0.07) 04/20/21 17:44 Coronavirus (PCR) Negative (Negative) 05/09/21 09:20 Bravo/IV: Voiding Method Condom Catheter Active Medications - Current Medications Current Medications: Generic Name Dose Route Start Last Admin Trade Name Freq PRN Reason Stop Dose Admin Acetaminophen 650 mg 04/20/21 18:41 05/10/21 08:02 Acetaminophen 325 Mg Tab PO 650 mg Q4H PRN Administration Pain, Mild (1-3) Albuterol 2.5 mg 04/20/21 18:41 Albuterol 2.5 Mg/3 Ml Nebu IH Q3HRT PRN Shortness Of Breath Amiodarone HCl 200 mg 05/01/21 10:00 05/10/21 08:02 Amiodarone 200 Mg Tab PO 200 mg DAILY NAMAN Administration Amlodipine Besylate 10 mg 05/01/21 10:00 05/09/21 09:13 Amlodipine 10 Mg Tab PO 10 mg QDAY NAMAN Administration Lipase/Protease/Amylase 1 each 04/25/21 15:16 Lipase 10,500/Protease 25,000/Amylase 43,750 (Units) Dr Willingham FEEDTUBE PRN PRN For Clogged Feeding Tube Apixaban 5 mg 04/29/21 10:00 05/10/21 08:02 Apixaban 5 Mg Tab PO 5 mg Q12HR NAMAN Administration Protocol Aspirin 325 mg 04/21/21 10:00 05/10/21 08:03 Aspirin 325 Mg Tab PO 325 mg QDAY NAMAN Administration Atorvastatin Calcium 40 mg 04/20/21 22:00 05/09/21 22:27 Atorvastatin 40 Mg Tab PO 40 mg QHS NAMAN Administration Bisacodyl 10 mg 04/20/21 18:41 Bisacodyl 10 Mg Rect Supp ID QDAY PRN Constipation Cyclobenzaprine HCl 10 mg 04/20/21 19:00 04/24/21 12:36 Cyclobenzaprine 10 Mg Tab PO 10 mg TID PRN Administration Muscle Spasm Dextrose 0 ml 04/27/21 04:03 Dextrose 10% *Hypoglycemia IV PRN PRN Hypoglycemia Protocol Folic Acid 1 mg 04/20/21 18:59 05/10/21 08:02 Folic Acid 1 Mg Tab PO 1 mg QDAY NAMAN Administration Hydralazine HCl 10 mg 04/30/21 05:49 05/01/21 06:02 Hydralazine 20 Mg/1 Ml Inj IV 10 mg Q6HR PRN Administration Hypertension Hydralazine HCl 100 mg 05/01/21 12:00 05/10/21 08:02 Hydralazine 100 Mg Tab PO 100 mg TID NAMAN Administration Hydromorphone HCl 0.5 mg 04/20/21 18:41 04/22/21 16:30 Hydromorphone 1 Mg/1 Ml Inj IV 0.5 mg Q6H PRN Administration Pain , Severe (7-10) Sodium Chloride 1,000 mls @ 100 mls/hr 05/05/21 05:00 05/06/21 16:53 Nacl 0.45% 1000 Ml IV 100 mls/hr DIRECT NAMAN Administration Insulin Human Isoph/Insulin Regular 10 unit 05/09/21 10:00 05/10/21 08:02 Insulin Nph/Regular 70/30 Inj SUB-Q 10 unit BIDDIAB [facility] Administration Insulin Human Lispro 0 unit 04/27/21 04:00 05/10/21 06:16 Insulin Lispro 100 Unit/Ml SUB-Q Not Given Q6HR [facility] Protocol Lansoprazole 30 mg 04/28/21 11:00 05/10/21 08:02 Lansoprazole 30 Mg Solutab FEEDTUBE 30 mg QDAY NAMAN Administration Lorazepam 2 mg 04/20/21 18:44 04/28/21 23:41 Lorazepam 2 Mg/Ml Vial IV 2 mg Q1HR PRN Administration CIWA-Ar 8-15 Magnesium Hydroxide 30 ml 04/20/21 18:41 Magnesium Hydroxide (Mom) Oral Liqd Udc PO Q4H PRN Constipation Metoclopramide HCl 10 mg 04/20/21 18:41 Metoclopramide 10 Mg Tab PO Q6H PRN Nausea And Vomiting Metoprolol Tartrate 100 mg 04/29/21 12:00 05/10/21 08:02 Metoprolol Tartrate 50 Mg Tab PO 100 mg BID NAMAN Administration Ondansetron HCl 4 mg 04/20/21 18:41 Ondansetron 4 Mg/2 Ml Inj IV Q8H PRN Nausea And Vomiting Oxycodone/Acetaminophen 1 tab 04/20/21 18:41 04/28/21 18:05 Oxycodone /Acetaminophen 5-325mg Tab PO 1 tab Q12H PRN Administration Pain, Moderate (4-6) Promethazine HCl 25 mg 04/20/21 18:41 Promethazine 25 Mg Rect Supp ID Q6H PRN Nausea And Vomiting Simple Syrup 15 ml 04/25/21 15:16 Simple Syrup 15 Ml FEEDTUBE PRN PRN Hypoglycemia Simple Syrup 30 ml 04/25/21 15:16 Simple Syrup 15 Ml FEEDTUBE PRN PRN Hypoglycemia Sodium Bicarbonate 325 mg 04/25/21 15:16 Sodium Bicarbonate 325 Mg Tab FEEDTUBE PRN PRN For Clogged Feeding Tube Sodium Chloride 10 ml 04/20/21 18:41 04/25/21 22:44 Sodium Chloride 0.9% 10 Ml Flush Syringe IV 10 ml PRN PRN Administration LINE FLUSH Nutrition/Malnutrition Assess - Dietary Evaluation Nutrition/Malnutrition Findings: Nutrition Notes Start: 04/23/21 12:36 Freq: Status: Active Protocol: Document 05/09/21 13:59 ANNIKA (Rec: 05/09/21 14:35 ANNIKA [id number]) Nutrition Notes Initial or Follow up Reassessment Current Diagnosis Acute Kidney Injury,Diabetes, Malnutrition Other Pertinent Diagnosis COVID-19, Atrial Fibrilation w /RVR, Dysphagia, Acute CVA. Current Diet TF-Glucerna 1.2 Maurice @ 63 ml/hr (since D 05/09). Labs/Tests 05/09: N/A. Pertinent Medications 05/09: Folic Acid, Insulin, others nutritionally unremarkable. Height 6 ft 3 in Weight 79.5 kg [place] Body Weight (kg) 89.09 BMI 21.9 Weight change and time frame No body weight change reported in 15 days. Weight Status Appropriate Subjective/Other Information RD consult for routine F/U on TF tolerance. TF continues as prescribed and well tolerated, according to RN notes. Diagnosis of Uncontrolled diabetes on 05/05; I will change TF to Glucerna to support BG control. Percent of energy/protein needs met: Prescribed Glucerna 1.2 Maurice @ 63 ml/hr provides for energy/ protein needs (1,819 Kcal/91 g ) during LOS, 90% Kcal; 100% AA. Burn Absent Trauma Absent GI Symptoms None Food Allergy No Skin Integrity/Comment Unspecifies area of concern, redness Current % PO Other Minimum of two criteria No #1 Nutrition Diagnosis Inadequate oral intake Diagnosis Progress(for reassessment Continues documentation) Is patient on ventilator? No Is Patient Ambulatory and/or Out of Bed No REE-([facility]-confined to bed) 2020.748 Calculation Used for Recommendations [facility] Additional Notes Protein: 0.8-1 g/Kg; 73-91 g/ day. Fluids: 1 ml/Kcal, or as per MD. Nutrition Intervention Nutrition Support: Change to Glucerna 1.2 Maurice @ 63 ml/hr. Flush: 130 ml water Q 4 hr, or as per MD. Kcal 1,819 Protein (gm) 91 Carbohydrates (gm) 174 Fat (gm) 91 Fluid (mL) 1,220 Fiber (gm) 24 % RDI: 90% Kcal; 100% AA. Goal #1 Provide at least 75% of energy /protein needs through Enteral Feeding during LOS. Goal #2 Maintain body weight within +/ -3% of admission body weight during LOS. Follow-Up By: 05/12/21 Additional Comments Continue monitoring TF tolerance and BM.
[2021-05-10] MEDS: amLODIPine 10 MG TAB PO SCH (13:00)
[2021-05-11] MEDS: INSULIN LISPRO 100 UNIT/ML SUB-Q SCH ×4 (00:22→17:10)
[2021-05-11 05:03] LABS: Mean Corpuscular HGB Conc 31 % (32-34); Mean Corpuscular Volume 89 fl (84-94); Platelet Count 484 K/mm3 (140-440); Red Cell Distribution Width 13.3 % (13.2-15.2)
[2021-05-11 05:04] LABS: Hemoglobin 14.8 gm/dl (11.8-15.2)
[2021-05-11] MEDS: INSULIN NPH/REGULAR 70/30 INJ SUB-Q SCH ×2 (09:10→17:12)
[2021-05-11] MEDS: LANSOPRAZOLE 30 MG SOLUTAB FEEDTUBE SCH (09:11)
[2021-05-11] MEDS: hydrALAZINE 100 MG TAB PO SCH ×3 (09:11→21:52)
[2021-05-11] MEDS: ASPIRIN 325 MG TAB PO SCH (09:11)
[2021-05-11] MEDS: amLODIPine 10 MG TAB PO SCH (09:11)
[2021-05-11] MEDS: FOLIC ACID 1 MG TAB PO SCH (09:12)
[2021-05-11] MEDS: AMIODARONE 200 MG TAB PO SCH (09:12)
[2021-05-11] MEDS: APIXABAN 5 MG TAB PO SCH ×2 (09:12→21:52)
[2021-05-11] MEDS: METOPROLOL TARTRATE 50 MG TAB PO SCH ×2 (09:12→21:51)
--- NOTE | 2021-05-11 19:01 | Progress Note ---
Assessment and Plan Assessment and plan: Patient is 61-year-old male past medical history of CVH with LHP, nicotine dependence, EtOH dependence who presented to the ED with a complaint of worsening left-sided weakness and difficulty speaking for 2 days. Patient was transported to [facility] where a code stroke was initiat ed. Patient was also discovered to be in new onset A. fib with RVR. Patient converted with IV Cardizem to sinus rhythm. Admitted for further mx. Assessment and plan -- Acute/subacute CVA Dysarthria and right hemiparesis -dysphagia reguired Pg tube feeding -New onset AT -- started on Eliquis 5 mg bid -Echo is with diastolic dysfunction with Ef#45-50% -MRI brain is with subacute multiinfarct cerebellar and brain stem / luba -US carotid <50% stenosis -CT with extensive microvascular changes Continue aspirin 325 mg daily Lipitor 40 mg daily. Physical therapy/Occupational Therapy recommended subacute rehab No resources, uninsured --Dysarthria; Continue speech therapy --Dysphagia PEG placed by GI on 04/28/2021 Continue PEG feeds Aspiration precautions --Acute metabolic encephalopathy; Multifactorial, secondary to neurological causes stroke dysarthria dysphagia Metabolic due to kidney disease diabetes Treat the underlying cause, supportive care -BHASKAR, vasomotor nephropathy Trending down, free water via PEG Monitor renal function, avoid nephrotoxins Creatinine trending down, renal dosing medications --COVID-19 positive 04/27/2021 Oxygen, antibiotics, plenty fluids Treat the underlying cause --Type 2 diabetes mellitus : Uncontrolled Accu-Chek , sliding scale coverage , ADA diet , long-acting insulin dose adjusted as needed --Atrial fibrillation with RVR (new onset) rate controlled Paroxysmal atrial fibrillation, continue amiodarone and Eliquis --Moderate malnutrition/hypoalbuminemia Albumin 3.2, nutrition supplements and supportive care --Advanced care planning -Disease education conducted, care plan discussed, diagnoses discussed, prognosis discussed, and patient acknowledges understanding with care plan -Time: +30 minutes --Full code status: Discharge planning per case management Pending placement. Patient is stable for discharge We will monitor closely and adjust management as needed Plan of care reviewed with the patient and his nurse Brief history and hospital course: Patient is 61-year-old male past medical history of CVH with LHP, nicotine d ependence, EtOH dependence who presented to the ED with a complaint of worsening left-sided weakness and difficulty speaking for 2 days. Patient was transported to [facility] where a code stroke was initiated. Patient was also discovered to be in new onset A. fib with RVR. Patient converted with IV Cardizem to sinus rhythm. Admitted for further mx. Daily clinical course: 04/29: Resumed care. 61 y/o male presented with slurred speech, left sided weakness clinically no change, Order for TF, resumed eliquis, wait for CM to arrange placement. PT recommended [facility]. 04/30: Tolerating tube feeding, continue to follow renal function. Discussed with patient daughter about placement. Patient remains nonverbal with left-sided hemiparesis. MRI and neuro eval pending. May 01, 2021 Right-sided weakness persists Patient is s/p PEG tube placement Tolerating PEG tube feedings May 02, 2021 Right-sided weakness persists S/p PEG tube placement Confused Waiting for placement to subacute rehab May 03, 2021 S/p PEG tube placement Right-sided weakness persists Confused, Waiting for placement to subacute rehab May 04, 2021 S/p PEG tube placement Right-sided weakness persists, Confused Waiting for placement to subacute rehab/SNF Discussed with family the diagnosis and prognosis 05/05/21; awaiting placement Mild elevation of LFTs, multifactorial Uncontrolled blood sugars, increase Lantus to 26 units nightly PT recommend subacute rehab/SNF 05/06/21: Patient is tolerating PEG feeds, clinically stable for discharge Pending placement, barrier to discharge, no resources and uninsured CM trying for [facility] hosp[facility]. I spoke with patient's daughter Ms. Byrnes At [phone] discussed in detail patient's condition, mild improvement, tests and reports, consultants recommendations, treatment and discharge planning issues, she had many questions answered all of them and encouraged her to call back if she has new concerns, 05/07/21; pending placement 05/08; pending placement 05/09; continue current management, awaiting placement, Patient is medically stable for discharge 05/10 continue current management;, pending placement 05/11; awaiting placement History Interval history: I have seen and examined the patient at the bedside No new events reported by the nursing staff Patient is comfortable, dysarthria dysphagia status post PEG tube on PEG feeds Awaiting placement Hospitalist Physical - Constitutional Vitals: Temp Pulse Resp BP Pulse Ox 97.8 F 62 18 145/84 97 05/11/21 09:09 05/11/21 09:12 05/11/21 04:36 05/11/21 09:12 05/11/21 13:00 General appearance: Present: no acute distress, well-nourished, other (Dysarthria, confused) - EENT Eyes: Present: PERRL, EOM intact - Neck Neck: Present: supple, normal ROM - Respiratory Respiratory effort: normal Respiratory: bilateral: diminished, negative: rales, rhonchi, wheezing - Cardiovascular Rhythm: regular Heart Sounds: Present: S1 & S2 - Extremities Extremities: no ischemia, No edema - Abdominal General gastrointestinal: soft, non-tender, non-distended, normal bowel sounds - Integumentary Integumentary: Present: clear, warm - Psychiatric Psychiatric: other (Minimally communicative) - Neurologic Neurologic: moves all extremities (CVA with right hemiparesis, dysarthria, dysphagia) HEART Score - HEART Score Troponin: Troponin T 0.011 ng/mL (0.00-0.029) 04/20/21 17:44 Results - Labs CBC & Chem 7: 05/11/21 04:26 05/06/21 05:32 Labs: Laboratory Last Values WBC 12.3 K/mm3 (4.5-11.0) H 05/11/21 04:26 RBC 5.40 M/mm3 (3.65-5.03) H 05/11/21 04:26 Hgb 14.8 gm/dl (11.8-15.2) 05/11/21 04:26 Hct 48.0 % (35.5-45.6) H 05/11/21 04:26 MCV 89 fl (84-94) 05/11/21 04:26 MCH 27 pg (28-32) L 05/11/21 04:26 MCHC 31 % (32-34) L 05/11/21 04:26 RDW 13.3 % (13.2-15.2) 05/11/21 04:26 Plt Count 484 K/mm3 (140-440) H 05/11/21 04:26 Lymph % (Auto) 11.5 % (13.4-35.0) L 05/04/21 05:54 [place] % (Auto) 12.8 % (0.0-7.3) H 05/04/21 05:54 Eos % (Auto) 2.2 % (0.0-4.3) 05/04/21 05:54 Baso % (Auto) 0.6 % (0.0-1.8) 05/04/21 05:54 Lymph # (Auto) 1.3 K/mm3 (1.2-5.4) 05/04/21 05:54 [place] # (Auto) 1.5 K/mm3 (0.0-0.8) H 05/04/21 05:54 Eos # (Auto) 0.3 K/mm3 (0.0-0.4) 05/04/21 05:54 Baso # (Auto) 0.1 K/mm3 (0.0-0.1) 05/04/21 05:54 Seg Neutrophils % 72.9 % (40.0-70.0) H 05/04/21 05:54 Seg Neutrophils # 8.5 K/mm3 (1.8-7.7) H 05/04/21 05:54 PT 14.1 Sec. (12.2-14.9) 04/28/21 13:53 INR 0.98 (0.87-1.13) 04/28/21 13:53 APTT 31.8 Sec. (24.2-36.6) 04/28/21 13:53 Thrombin Time 16.2 Sec. (15.1-19.6) 04/20/21 17:44 D-Dimer 894.94 ng/mlDDU (0-234) H 04/28/21 09:29 Sodium 153 mmol/L (137-145) H D 05/06/21 05:32 Potassium 4.6 mmol/L (3.6-5.0) 05/06/21 05:32 Chloride 115.2 mmol/L (98-107) H 05/06/21 05:32 Carbon Dioxide 24 mmol/L (22-30) 05/06/21 05:32 Anion Gap 18 mmol/L 05/06/21 05:32 BUN 29 mg/dL (9-20) H 05/06/21 05:32 Creatinine 1.6 mg/dL (0.8-1.3) H 05/06/21 05:32 Estimated GFR 53 ml/min 05/06/21 05:32 BUN/Creatinine Ratio 18 % 05/06/21 05:32 Glucose 345 mg/dL (75-100) H 05/06/21 05:32 POC Glucose 134 mg/dL (70-105) H 05/11/21 16:11 Calcium 8.8 mg/dL (8.4-10.2) 05/06/21 05:32 Magnesium 1.90 mg/dL (1.7-2.3) 04/20/21 17:44 Ferritin 1157.0 ng/mL (30.0-300.0) H 04/28/21 09:29 Total Bilirubin 0.20 mg/dL (0.1-1.2) 05/06/21 05:32 AST 25 units/L (5-40) 05/06/21 05:32 ALT 64 units/L (7-56) H 05/06/21 05:32 Alkaline Phosphatase 168 units/L (35-129) H 05/06/21 05:32 Lactate Dehydrogenase 287 units/L (91-180) H 04/28/21 09:29 Total Creatine Kinase 79 units/L (55-170) 04/20/21 17:44 Total Creatine Kinase 81 units/L (55-170) 04/20/21 17:44 CK-MB (CK-2) 2.1 ng/mL (0.0-4.0) 04/20/21 17:44 CK-MB (CK-2) Rel Index 2.6 (0-4) 04/20/21 17:44 Troponin T 0.011 ng/mL (0.00-0.029) 04/20/21 17:44 C-Reactive Protein 15.40 mg/dL (0.00-1.30) H 04/28/21 09:29 Total Protein 7.4 g/dL (6.3-8.2) 05/06/21 05:32 Albumin 3.2 g/dL (3.9-5) L 05/06/21 05:32 Albumin/Globulin Ratio 0.8 % 05/06/21 05:32 TSH 1.040 mlU/mL (0.270-4.200) 04/20/21 19:42 Free T4 1.16 ng/dL (0.76-1.46) 04/20/21 19:42 Urine Color Saira (Yellow) 04/26/21 Unknown Urine Turbidity Cloudy (Clear) 04/26/21 Unknown Urine pH 5.0 (5.0-7.0) 04/26/21 Unknown Ur Specific [place] 1.020 (1.003-1.030) 04/26/21 Unknown Urine Protein 100 mg/dl mg/dL (Negative) 04/26/21 Unknown Urine Glucose (UA) >=500 mg/dL (Negative) 04/26/21 Unknown Urine Ketones Neg mg/dL (Negative) 04/26/21 Unknown Urine Blood Mod (Negative) 04/26/21 Unknown Urine Nitrite Neg (Negative) 04/26/21 Unknown Urine Bilirubin Neg (Negative) 04/26/21 Unknown Urine Urobilinogen 2.0 mg/dL (<2.0) 04/26/21 Unknown Ur Leukocyte Esterase Neg (Negative) 04/26/21 Unknown Urine WBC (Auto) 1.0 /HPF (0.0-6.0) 04/20/21 18:19 Urine RBC (Auto) 3.0 /HPF (0.0-6.0) 04/20/21 18:19 U Epithel Cells (Auto) < 1.0 /HPF (0-13.0) 04/20/21 18:19 Hyaline Casts 5 /LPF 04/20/21 18:19 Urine Mucus Few /HPF 04/20/21 18:19 Plasma/Serum Alcohol < 0.01 % (0-0.07) 04/20/21 17:44 Coronavirus (PCR) Negative (Negative) 05/09/21 09:20 Bravo/IV: Voiding Method Condom Catheter Active Medications - Current Medications Current Medications: Generic Name Dose Route Start Last Admin Trade Name Freq PRN Reason Stop Dose Admin Acetaminophen 650 mg 04/20/21 18:41 05/10/21 08:02 Acetaminophen 325 Mg Tab PO 650 mg Q4H PRN Administration Pain, Mild (1-3) Albuterol 2.5 mg 04/20/21 18:41 Albuterol 2.5 Mg/3 Ml Nebu IH Q3HRT PRN Shortness Of Breath Amiodarone HCl 200 mg 05/01/21 10:00 05/11/21 09:12 Amiodarone 200 Mg Tab PO 200 mg DAILY NAMAN Administration Amlodipine Besylate 10 mg 05/01/21 10:00 05/11/21 09:11 Amlodipine 10 Mg Tab PO 10 mg QDAY NAMAN Administration Lipase/Protease/Amylase 1 each 04/25/21 15:16 Lipase 10,500/Protease 25,000/Amylase 43,750 (Units) Dr Willing[place] FEEDTUBE PRN PRN For Clogged Feeding Tube Apixaban 5 mg 04/29/21 10:00 05/11/21 09:12 Apixaban 5 Mg Tab PO 5 mg Q12HR NAMAN Administration Protocol Aspirin 325 mg 04/21/21 10:00 05/11/21 09:11 Aspirin 325 Mg Tab PO 325 mg QDAY NAMAN Administration Atorvastatin Calcium 40 mg 04/20/21 22:00 05/10/21 22:22 Atorvastatin 40 Mg Tab PO 40 mg QHS NAMAN Administration Bisacodyl 10 mg 04/20/21 18:41 Bisacodyl 10 Mg Rect Supp NV QDAY PRN Constipation Cyclobenzaprine HCl 10 mg 04/20/21 19:00 04/24/21 12:36 Cyclobenzaprine 10 Mg Tab PO 10 mg TID PRN Administration Muscle Spasm Dextrose 0 ml 04/27/21 04:03 Dextrose 10% *Hypoglycemia IV PRN PRN Hypoglycemia Protocol Folic Acid 1 mg 04/20/21 18:59 05/11/21 09:12 Folic Acid 1 Mg Tab PO 1 mg QDAY NAMAN Administration Hydralazine HCl 10 mg 04/30/21 05:49 05/01/21 06:02 Hydralazine 20 Mg/1 Ml Inj IV 10 mg Q6HR PRN Administration Hypertension Hydralazine HCl 100 mg 05/01/21 12:00 05/11/21 13:20 Hydralazine 100 Mg Tab PO 100 mg TID NAMAN Administration Hydromorphone HCl 0.5 mg 04/20/21 18:41 04/22/21 16:30 Hydromorphone 1 Mg/1 Ml Inj IV 0.5 mg Q6H PRN Administration Pain , Severe (7-10) Sodium Chloride 1,000 mls @ 100 mls/hr 05/05/21 05:00 05/06/21 16:53 Nacl 0.45% 1000 Ml IV 100 mls/hr DIRECT NAMAN Administration Insulin Human Isoph/Insulin Regular 10 unit 05/09/21 10:00 05/11/21 17:12 Insulin Nph/Regular 70/30 Inj SUB-Q 10 unit BIDDIAB [facility] Administration Insulin Human Lispro 0 unit 04/27/21 04:00 05/11/21 17:10 Insulin Lispro 100 Unit/Ml SUB-Q Not Given Q6HR [facility] Protocol Lansoprazole 30 mg 04/28/21 11:00 05/11/21 09:11 Lansoprazole 30 Mg Solutab FEEDTUBE 30 mg QDAY [facility] Administration Lorazepam 2 mg 04/20/21 18:44 04/28/21 23:41 Lorazepam 2 Mg/Ml Vial IV 2 mg Q1HR PRN Administration CIWA-Ar 8-15 Magnesium Hydroxide 30 ml 04/20/21 18:41 Magnesium Hydroxide (Mom) Oral Liqd Udc PO Q4H PRN Constipation Metoclopramide HCl 10 mg 04/20/21 18:41 Metoclopramide 10 Mg Tab PO Q6H PRN Nausea And Vomiting Metoprolol Tartrate 100 mg 04/29/21 12:00 05/11/21 09:12 Metoprolol Tartrate 50 Mg Tab PO 100 mg BID NAMAN Administration Ondansetron HCl 4 mg 04/20/21 18:41 Ondansetron 4 Mg/2 Ml Inj IV Q8H PRN Nausea And Vomiting Oxycodone/Acetaminophen 1 tab 04/20/21 18:41 04/28/21 18:05 Oxycodone /Acetaminophen 5-325mg Tab PO 1 tab Q12H PRN Administration Pain, Moderate (4-6) Promethazine HCl 25 mg 04/20/21 18:41 Promethazine 25 Mg Rect Supp NV Q6H PRN Nausea And Vomiting Simple Syrup 15 ml 04/25/21 15:16 Simple Syrup 15 Ml FEEDTUBE PRN PRN Hypoglycemia Simple Syrup 30 ml 04/25/21 15:16 Simple Syrup 15 Ml FEEDTUBE PRN PRN Hypoglycemia Sodium Bicarbonate 325 mg 04/25/21 15:16 Sodium Bicarbonate 325 Mg Tab FEEDTUBE PRN PRN For Clogged Feeding Tube Sodium Chloride 10 ml 04/20/21 18:41 05/10/21 22:25 Sodium Chloride 0.9% 10 Ml Flush Syringe IV 10 ml PRN PRN Administration LINE FLUSH Nutrition/Malnutrition Assess - Dietary Evaluation Nutrition/Malnutrition Findings: Nutrition Notes Start: 04/23/21 12:36 Freq: Status: Active Protocol: Document 05/10/21 13:25 ERNESTO (Rec: 05/10/21 13:28 ERNESTO [id number]) Nutrition Notes Initial or Follow up Brief Note Height 6 ft 3 in Weight 79.5 kg [place] Body Weight (kg) 89.09 BMI 21.9 Subjective/Other Information Glucerna 1.2 is out of stock. Is patient on ventilator? No Is Patient Ambulatory and/or Out of Bed No REE-([place]-St. Jeor-confined to bed) 748 Calculation Used for Recommendations [place] Jeor Additional Notes Pro needs 1-1.2g/k-95g/ day Fluid needs 1ml/kcal Nutrition Intervention Nutrition Support: If necessary, use Vital AF 1.2 at 55ml/hr with 85ml water flush q4h. Resume Glucerna 1. 2 when back in stock. Follow-Up By: 05/12/21 Additional Comments F/U: TF tolerance, wt, Glucerna 1.2 availbility
[2021-05-12] MEDS: INSULIN LISPRO 100 UNIT/ML SUB-Q SCH ×4 (00:40→17:45)
[2021-05-12] MEDS: INSULIN NPH/REGULAR 70/30 INJ SUB-Q SCH ×2 (08:00→17:49)
[2021-05-12] MEDS: hydrALAZINE 100 MG TAB PO SCH ×3 (09:12→20:00)
[2021-05-12] MEDS: METOPROLOL TARTRATE 50 MG TAB PO SCH ×2 (10:31→23:27)
[2021-05-12] MEDS: AMIODARONE 200 MG TAB PO SCH (10:32)
[2021-05-12] MEDS: APIXABAN 5 MG TAB PO SCH ×2 (10:32→23:26)
[2021-05-12] MEDS: amLODIPine 10 MG TAB PO SCH (10:32)
[2021-05-12] MEDS: LANSOPRAZOLE 30 MG SOLUTAB FEEDTUBE SCH (10:32)
[2021-05-12] MEDS: FOLIC ACID 1 MG TAB PO SCH (10:32)
[2021-05-12] MEDS: ASPIRIN 325 MG TAB PO SCH (10:32)
--- NOTE | 2021-05-12 21:48 | Progress Note ---
Assessment and Plan Assessment and plan: Patient is 61-year-old male past medical history of CVH with LHP, nicotine dependence, EtOH dependence who presented to the ED with a complaint of worsening left-sided weakness and difficulty speaking for 2 days. Patient was transported to [facility] where a code stroke was initiat ed. Patient was also discovered to be in new onset A. fib with RVR. Patient converted with IV Cardizem to sinus rhythm. Admitted for further mx. Assessment and plan -- Acute/subacute CVA Dysarthria and right hemiparesis -dysphagia reguired Pg tube feeding -New onset AT -- started on Eliquis 5 mg bid -Echo is with diastolic dysfunction with Ef#45-50% -MRI brain is with subacute multiinfarct cerebellar and brain stem / luba -US carotid <50% stenosis -CT with extensive microvascular changes Continue aspirin 325 mg daily Lipitor 40 mg daily. Physical therapy/Occupational Therapy recommended subacute rehab No resources, uninsured --Dysarthria; Continue speech therapy --Dysphagia PEG placed by GI on 04/28/2021 Continue PEG feeds Aspiration precautions --Acute metabolic encephalopathy; Multifactorial, secondary to neurological causes stroke dysarthria dysphagia Metabolic due to kidney disease diabetes Treat the underlying cause, supportive care -BHASKAR, vasomotor nephropathy Trending down, free water via PEG Monitor renal function, avoid nephrotoxins Creatinine trending down, renal dosing medications --COVID-19 positive 04/27/2021 Oxygen, antibiotics, plenty fluids Treat the underlying cause --Type 2 diabetes mellitus : Uncontrolled Accu-Chek , sliding scale coverage , ADA diet , long-acting insulin dose adjusted as needed --Atrial fibrillation with RVR (new onset) rate controlled Paroxysmal atrial fibrillation, continue amiodarone and Eliquis --Moderate malnutrition/hypoalbuminemia Albumin 3.2, nutrition supplements and supportive care --Advanced care planning -Disease education conducted, care plan discussed, diagnoses discussed, prognosis discussed, and patient acknowledges understanding with care plan -Time: +30 minutes --Full code status: Discharge planning per case management Pending placement. Patient is stable for discharge We will monitor closely and adjust management as needed Plan of care reviewed with the patient and his nurse Brief history and hospital course: Patient is 61-year-old male past medical history of CVH with LHP, nicotine d ependence, EtOH dependence who presented to the ED with a complaint of worsening left-sided weakness and difficulty speaking for 2 days. Patient was transported to [facility] where a code stroke was initiated. Patient was also discovered to be in new onset A. fib with RVR. Patient converted with IV Cardizem to sinus rhythm. Admitted for further mx. Daily clinical course: 04/29: Resumed care. 61 y/o male presented with slurred speech, left sided weakness clinically no change, Order for TF, resumed eliquis, wait for CM to arrange placement. PT recommended [facility]. 04/30: Tolerating tube feeding, continue to follow renal function. Discussed with patient daughter about placement. Patient remains nonverbal with left-sided hemiparesis. MRI and neuro eval pending. May 01, 2021 Right-sided weakness persists Patient is s/p PEG tube placement Tolerating PEG tube feedings May 02, 2021 Right-sided weakness persists S/p PEG tube placement Confused Waiting for placement to subacute rehab May 03, 2021 S/p PEG tube placement Right-sided weakness persists Confused, Waiting for placement to subacute rehab May 04, 2021 S/p PEG tube placement Right-sided weakness persists, Confused Waiting for placement to subacute rehab/SNF Discussed with family the diagnosis and prognosis 05/05/21; awaiting placement Mild elevation of LFTs, multifactorial Uncontrolled blood sugars, increase Lantus to 26 units nightly PT recommend subacute rehab/SNF 05/06/21: Patient is tolerating PEG feeds, clinically stable for discharge Pending placement, barrier to discharge, no resources and uninsured CM trying for [facility]. I spoke with patient's daughter Ms. Byrnes At [phone] discussed in detail patient's condition, mild improvement, tests and reports, consultants recommendations, treatment and discharge planning issues, she had many questions answered all of them and encouraged her to call back if she has new concerns, 05/07/21; pending placement 05/08; pending placement 05/09; continue current management, awaiting placement, Patient is medically stable for discharge 05/10 continue current management;, pending placement 05/11; awaiting placement 05/12; awaiting placement. Case management trying for hospice Disposition ;DC when placement is set up History Interval history: I have have seen and examined the patient at the bedside patient's chart and medications reviewed Clinically no change Patient is noncommunicative, confused Acute CVA, right hemiparesis Dysarthria, dysphagia status post PEG Hospitalist Physical - Constitutional Vitals: Temp Pulse Resp BP Pulse Ox 98.1 F 88 16 119/77 97 05/12/21 10:32 05/12/21 10:32 05/12/21 10:32 05/12/21 10:32 05/12/21 13:00 General appearance: Present: no acute distress, well-nourished, other (Dysarthria, confused) - EENT Eyes: Present: PERRL, EOM intact - Neck Neck: Present: supple, normal ROM - Respiratory Respiratory effort: normal Respiratory: bilateral: diminished, negative: rales, rhonchi, wheezing - Cardiovascular Rhythm: regular Heart Sounds: Present: S1 & S2 - Extremities Extremities: no ischemia, No edema - Abdominal General gastrointestinal: soft, non-tender, non-distended, normal bowel sounds, other ( PEG in place) - Integumentary Integumentary: Present: clear, warm - Psychiatric Psychiatric: other (Noncommunicative) - Neurologic Neurologic: other (Acute CVA/right hemiparesis/dysarthria/dysphagia) HEART Score - HEART Score Troponin: Troponin T 0.011 ng/mL (0.00-0.029) 04/20/21 17:44 Results - Labs CBC & Chem 7: 05/11/21 04:26 05/06/21 05:32 Labs: Laboratory Last Values WBC 12.3 K/mm3 (4.5-11.0) H 05/11/21 04:26 RBC 5.40 M/mm3 (3.65-5.03) H 05/11/21 04:26 Hgb 14.8 gm/dl (11.8-15.2) 05/11/21 04:26 Hct 48.0 % (35.5-45.6) H 05/11/21 04:26 MCV 89 fl (84-94) 05/11/21 04:26 MCH 27 pg (28-32) L 05/11/21 04:26 MCHC 31 % (32-34) L 05/11/21 04:26 RDW 13.3 % (13.2-15.2) 05/11/21 04:26 Plt Count 484 K/mm3 (140-440) H 05/11/21 04:26 Lymph % (Auto) 11.5 % (13.4-35.0) L 05/04/21 05:54 [place] % (Auto) 12.8 % (0.0-7.3) H 05/04/21 05:54 Eos % (Auto) 2.2 % (0.0-4.3) 05/04/21 05:54 Baso % (Auto) 0.6 % (0.0-1.8) 05/04/21 05:54 Lymph # (Auto) 1.3 K/mm3 (1.2-5.4) 05/04/21 05:54 [place] # (Auto) 1.5 K/mm3 (0.0-0.8) H 05/04/21 05:54 Eos # (Auto) 0.3 K/mm3 (0.0-0.4) 05/04/21 05:54 Baso # (Auto) 0.1 K/mm3 (0.0-0.1) 05/04/21 05:54 Seg Neutrophils % 72.9 % (40.0-70.0) H 05/04/21 05:54 Seg Neutrophils # 8.5 K/mm3 (1.8-7.7) H 05/04/21 05:54 PT 14.1 Sec. (12.2-14.9) 04/28/21 13:53 INR 0.98 (0.87-1.13) 04/28/21 13:53 APTT 31.8 Sec. (24.2-36.6) 04/28/21 13:53 Thrombin Time 16.2 Sec. (15.1-19.6) 04/20/21 17:44 D-Dimer 894.94 ng/mlDDU (0-234) H 04/28/21 09:29 Sodium 153 mmol/L (137-145) H D 05/06/21 05:32 Potassium 4.6 mmol/L (3.6-5.0) 05/06/21 05:32 Chloride 115.2 mmol/L (98-107) H 05/06/21 05:32 Carbon Dioxide 24 mmol/L (22-30) 05/06/21 05:32 Anion Gap 18 mmol/L 05/06/21 05:32 BUN 29 mg/dL (9-20) H 05/06/21 05:32 Creatinine 1.6 mg/dL (0.8-1.3) H 05/06/21 05:32 Estimated GFR 53 ml/min 05/06/21 05:32 BUN/Creatinine Ratio 18 % 05/06/21 05:32 Glucose 345 mg/dL (75-100) H 05/06/21 05:32 POC Glucose 292 mg/dL (70-105) H 05/12/21 16:54 Calcium 8.8 mg/dL (8.4-10.2) 05/06/21 05:32 Magnesium 1.90 mg/dL (1.7-2.3) 04/20/21 17:44 Ferritin 1157.0 ng/mL (30.0-300.0) H 04/28/21 09:29 Total Bilirubin 0.20 mg/dL (0.1-1.2) 05/06/21 05:32 AST 25 units/L (5-40) 05/06/21 05:32 ALT 64 units/L (7-56) H 05/06/21 05:32 Alkaline Phosphatase 168 units/L (35-129) H 05/06/21 05:32 Lactate Dehydrogenase 287 units/L (91-180) H 04/28/21 09:29 Total Creatine Kinase 79 units/L (55-170) 04/20/21 17:44 Total Creatine Kinase 81 units/L (55-170) 04/20/21 17:44 CK-MB (CK-2) 2.1 ng/mL (0.0-4.0) 04/20/21 17:44 CK-MB (CK-2) Rel Index 2.6 (0-4) 04/20/21 17:44 Troponin T 0.011 ng/mL (0.00-0.029) 04/20/21 17:44 C-Reactive Protein 15.40 mg/dL (0.00-1.30) H 04/28/21 09:29 Total Protein 7.4 g/dL (6.3-8.2) 05/06/21 05:32 Albumin 3.2 g/dL (3.9-5) L 05/06/21 05:32 Albumin/Globulin Ratio 0.8 % 05/06/21 05:32 TSH 1.040 mlU/mL (0.270-4.200) 04/20/21 19:42 Free T4 1.16 ng/dL (0.76-1.46) 04/20/21 19:42 Urine Color [place] (Yellow) 04/26/21 Unknown Urine Turbidity Cloudy (Clear) 04/26/21 Unknown Urine pH 5.0 (5.0-7.0) 04/26/21 Unknown Ur Specific [place] 1.020 (1.003-1.030) 04/26/21 Unknown Urine Protein 100 mg/dl mg/dL (Negative) 04/26/21 Unknown Urine Glucose (UA) >=500 mg/dL (Negative) 04/26/21 Unknown Urine Ketones Neg mg/dL (Negative) 04/26/21 Unknown Urine Blood Mod (Negative) 04/26/21 Unknown Urine Nitrite Neg (Negative) 04/26/21 Unknown Urine Bilirubin Neg (Negative) 04/26/21 Unknown Urine Urobilinogen 2.0 mg/dL (<2.0) 04/26/21 Unknown Ur Leukocyte Esterase Neg (Negative) 04/26/21 Unknown Urine WBC (Auto) 1.0 /HPF (0.0-6.0) 04/20/21 18:19 Urine RBC (Auto) 3.0 /HPF (0.0-6.0) 04/20/21 18:19 U Epithel Cells (Auto) < 1.0 /HPF (0-13.0) 04/20/21 18:19 Hyaline Casts 5 /LPF 04/20/21 18:19 Urine Mucus Few /HPF 04/20/21 18:19 Plasma/Serum Alcohol < 0.01 % (0-0.07) 04/20/21 17:44 Coronavirus (PCR) Negative (Negative) 05/09/21 09:20 Bravo/IV: Voiding Method Condom Catheter Active Medications - Current Medications Current Medications: Generic Name Dose Route Start Last Admin Trade Name Freq PRN Reason Stop Dose Admin Acetaminophen 650 mg 04/20/21 18:41 05/10/21 08:02 Acetaminophen 325 Mg Tab PO 650 mg Q4H PRN Administration Pain, Mild (1-3) Albuterol 2.5 mg 04/20/21 18:41 Albuterol 2.5 Mg/3 Ml Nebu IH Q3HRT PRN Shortness Of Breath Amiodarone HCl 200 mg 05/01/21 10:00 05/12/21 10:32 Amiodarone 200 Mg Tab PO 200 mg DAILY NAMAN Administration Amlodipine Besylate 10 mg 05/01/21 10:00 05/12/21 10:32 Amlodipine 10 Mg Tab PO 10 mg QDAY NAMAN Administration Lipase/Protease/Amylase 1 each 04/25/21 15:16 Lipase 10,500/Protease 25,000/Amylase 43,750 (Units) Dr Willingham FEEDTUBE PRN PRN For Clogged Feeding Tube Apixaban 5 mg 04/29/21 10:00 05/12/21 10:32 Apixaban 5 Mg Tab PO 5 mg Q12HR NAMAN Administration Protocol Aspirin 325 mg 04/21/21 10:00 05/12/21 10:32 Aspirin 325 Mg Tab PO 325 mg QDAY NAMAN Administration Atorvastatin Calcium 40 mg 04/20/21 22:00 05/11/21 21:52 Atorvastatin 40 Mg Tab PO 40 mg QHS NAMAN Administration Bisacodyl 10 mg 04/20/21 18:41 Bisacodyl [address] QDAY PRN Constipation Cyclobenzaprine HCl 10 mg 04/20/21 19:00 04/24/21 12:36 Cyclobenzaprine 10 Mg Tab PO 10 mg TID PRN Administration Muscle Spasm Dextrose 0 ml 04/27/21 04:03 Dextrose 10% *Hypoglycemia IV PRN PRN Hypoglycemia Protocol Folic Acid 1 mg 04/20/21 18:59 05/12/21 10:32 Folic Acid 1 Mg Tab PO 1 mg QDAY NAMAN Administration Hydralazine HCl 10 mg 04/30/21 05:49 05/01/21 06:02 Hydralazine 20 Mg/1 Ml Inj IV 10 mg Q6HR PRN Administration Hypertension Hydralazine HCl 100 mg 05/01/21 12:00 05/12/21 17:48 Hydralazine 100 Mg Tab PO 100 mg TID NAMAN Administration Hydromorphone HCl 0.5 mg 04/20/21 18:41 04/22/21 16:30 Hydromorphone 1 Mg/1 Ml Inj IV 0.5 mg Q6H PRN Administration Pain , Severe (7-10) Sodium Chloride 1,000 mls @ 100 mls/hr 05/05/21 05:00 05/06/21 16:53 Nacl 0.45% 1000 Ml IV 100 mls/hr DIRECT NAMAN Administration Insulin Human Isoph/Insulin Regular 10 unit 05/09/21 10:00 05/12/21 17:49 Insulin Nph/Regular 70/30 Inj SUB-Q 10 unit BIDDIAB NAMAN Administration Insulin Human Lispro 0 unit 04/27/21 04:00 05/12/21 17:45 Insulin Lispro 100 Unit/Ml SUB-Q 4 unit Q6HR NAMAN Administration Protocol Lansoprazole 30 mg 04/28/21 11:00 05/12/21 10:32 Lansoprazole 30 Mg Solutab FEEDTUBE 30 mg QDAY NAMAN Administration Lorazepam 2 mg 04/20/21 18:44 04/28/21 23:41 Lorazepam 2 Mg/Ml Vial IV 2 mg Q1HR PRN Administration CIWA-Ar 8-15 Magnesium Hydroxide 30 ml 04/20/21 18:41 Magnesium Hydroxide (Mom) Oral Liqd Udc PO Q4H PRN Constipation Metoclopramide HCl 10 mg 04/20/21 18:41 Metoclopramide 10 Mg Tab PO Q6H PRN Nausea And Vomiting Metoprolol Tartrate 100 mg 04/29/21 12:00 05/12/21 10:31 Metoprolol Tartrate 50 Mg Tab PO 100 mg BID NAMAN Administration Ondansetron HCl 4 mg 04/20/21 18:41 Ondansetron 4 Mg/2 Ml Inj IV Q8H PRN Nausea And Vomiting Oxycodone/Acetaminophen 1 tab 04/20/21 18:41 04/28/21 18:05 Oxycodone /Acetaminophen 5-325mg Tab PO 1 tab Q12H PRN Administration Pain, Moderate (4-6) Promethazine HCl 25 mg 04/20/21 18:41 Promethazine [address] Q6H PRN Nausea And Vomiting Simple Syrup 15 ml 04/25/21 15:16 Simple Syrup 15 Ml FEEDTUBE PRN PRN Hypoglycemia Simple Syrup 30 ml 04/25/21 15:16 Simple Syrup 15 Ml FEEDTUBE PRN PRN Hypoglycemia Sodium Bicarbonate 325 mg 04/25/21 15:16 Sodium Bicarbonate 325 Mg Tab FEEDTUBE PRN PRN For Clogged Feeding Tube Sodium Chloride 10 ml 04/20/21 18:41 05/11/21 21:55 Sodium Chloride 0.9% 10 Ml Flush Syringe IV 10 ml PRN PRN Administration LINE FLUSH Nutrition/Malnutrition Assess - Dietary Evaluation Nutrition/Malnutrition Findings: Nutrition Notes Start: 04/23/21 12:36 Freq: Status: Active Protocol: Document 05/10/21 13:25 JOSE JJAIMIE (Rec: 05/10/21 13:28 [facility] [id number]) Nutrition Notes Initial or Follow up Brief Note Height 6 ft 3 in Weight 79.5 kg [place] Body Weight (kg) 89.09 BMI 21.9 Subjective/Other Information Glucerna 1.2 is out of stock. Is patient on ventilator? No Is Patient Ambulatory and/or Out of Bed No REE-(Ava-St. Jeor-confined to bed) 748 Calculation Used for Recommendations Ava-St Jeor Additional Notes Pro needs 1-1.2g/k-95g/ day Fluid needs 1ml/kcal Nutrition Intervention Nutrition Support: If necessary, use Vital AF 1.2 at 55ml/hr with 85ml water flush q4h. Resume Glucerna 1. 2 when back in stock. Follow-Up By: 05/12/21 Additional Comments F/U: TF tolerance, wt, Glucerna 1.2 availbility
[2021-05-13] MEDS: INSULIN LISPRO 100 UNIT/ML SUB-Q SCH ×4 (06:00→18:00)
[2021-05-13] MEDS: amLODIPine 10 MG TAB PO SCH (09:31)
[2021-05-13] MEDS: LANSOPRAZOLE 30 MG SOLUTAB FEEDTUBE SCH (09:31)
[2021-05-13] MEDS: METOPROLOL TARTRATE 50 MG TAB PO SCH ×2 (09:32→21:04)
[2021-05-13] MEDS: AMIODARONE 200 MG TAB PO SCH (09:32)
[2021-05-13] MEDS: ASPIRIN EC 81 MG TAB PO SCH (09:32)
[2021-05-13] MEDS: APIXABAN 5 MG TAB PO SCH ×2 (09:32→21:04)
[2021-05-13] MEDS: hydrALAZINE 100 MG TAB PO SCH ×3 (09:32→21:04)
[2021-05-13] MEDS: HYDROmorphone 1 MG/1 ML INJ IV PRN (09:33)
[2021-05-13] MEDS: FOLIC ACID 1 MG TAB PO SCH (09:33)
--- NOTE | 2021-05-13 16:01 | Progress Note ---
Assessment and Plan Assessment and plan: 61-year-old male w/ hx of CVH with LHP, nicotine dependence, EtOH dependence who presented with worsening left-sided weakness and difficulty speaking for 2 days. Code stroke was initiated. Patient was also discovered to have new onset A. fib with RVR. Currently stable, requiring feeding tube awaiting safe discharge. #Acute/subacute CVA #Acute metabolic encephalopathy-Multifactorial -CT with extensive microvascular changes; MRI brain showed subacute multi- infarct cerebellar and brain stem / luba -US carotid <50% stenosis -stroke likely embolic from A fib; continue eliquis and metoprolol, amiodarone for rate control -TTE showed diastolic dysfunction; normal EF and no evidence of PFO Continue aspirin and lipitor Physical therapy/Occupational Therapy recommended subacute rehab, however the patient is uninsured #Dysphagia #Dysarthria -PEG tube placed on 04/28/2021 -tube feeds at 52cc/hr, will continue; nutrition managing -meds per PEG tube -continue speech therapy #BHASKAR, vasomotor nephropathy -last Cr 1.8, will repeat BMP; baseline SCr 0.9 -continue free water flushes via PEG tube -avoid nephrotoxins and renally dose medications #COVID-19 positive -PCR 04/27/2021 -supportive care #Type 2 diabetes mellitus, uncontrolled -continue accuchecks and sliding scale -humulin increased from 10 units to 14 qday -continue ADA diet -goal glucose 140-180, will adjust insulin as needed #Atrial fibrillation with RVR, (new onset) -rate currently controlled -continue amiodarone, metoprolol and eliquis #Moderate protein calorie malnutrition -albumin 3.2 -nutrition consult, continue TF #Advanced care planning #Discharge planning -Disease education conducted, care plan discussed, diagnoses discussed, prognosis discussed, and with family. Discussion with family and daughter about disposition. 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 -Time: +30 minutes History Interval history: No acute events overnight. Patient in no acute distress, tube feeds running. Hospitalist Physical - Physical exam Narrative exam: GENERAL: Well-developed well-nourished. In no acute distress. HEENT: Dry mucous membranes. CHEST/LUNGS: CTAB on room air HEART/CARDIOVASCULAR: RRR. No murmur, rubs or gallops appreciated. ABDOMEN: + PEG tube. +BS. NT/ND. SKIN: No rashes noted. NEURO: Unable to assess. Opens eyes to name but does not track. MUSCULOSKELETAL: No joint effusion EXTREMITIES: No cyanosis, clubbing or edema. PSYCH: Unable to assess. - Constitutional Vitals: Temp Pulse Resp BP Pulse Ox 98.0 F 73 20 146/99 98 05/13/21 05:38 05/13/21 09:31 05/13/21 09:29 05/13/21 09:31 05/13/21 09:29 General appearance: Present: no acute distress, well-nourished, other (Dysarthria, confused) HEART Score - HEART Score Troponin: Troponin T 0.011 ng/mL (0.00-0.029) 04/20/21 17:44 Results - Labs CBC & Chem 7: 05/11/21 04:26 05/06/21 05:32 Labs: Laboratory Last Values WBC 12.3 K/mm3 (4.5-11.0) H 05/11/21 04:26 RBC 5.40 M/mm3 (3.65-5.03) H 05/11/21 04:26 Hgb 14.8 gm/dl (11.8-15.2) 05/11/21 04:26 Hct 48.0 % (35.5-45.6) H 05/11/21 04:26 MCV 89 fl (84-94) 05/11/21 04:26 MCH 27 pg (28-32) L 05/11/21 04:26 MCHC 31 % (32-34) L 05/11/21 04:26 RDW 13.3 % (13.2-15.2) 05/11/21 04:26 Plt Count 484 K/mm3 (140-440) H 05/11/21 04:26 Lymph % (Auto) 11.5 % (13.4-35.0) L 05/04/21 05:54 [place] % (Auto) 12.8 % (0.0-7.3) H 05/04/21 05:54 Eos % (Auto) 2.2 % (0.0-4.3) 05/04/21 05:54 Baso % (Auto) 0.6 % (0.0-1.8) 05/04/21 05:54 Lymph # (Auto) 1.3 K/mm3 (1.2-5.4) 05/04/21 05:54 [place] # (Auto) 1.5 K/mm3 (0.0-0.8) H 05/04/21 05:54 Eos # (Auto) 0.3 K/mm3 (0.0-0.4) 05/04/21 05:54 Baso # (Auto) 0.1 K/mm3 (0.0-0.1) 05/04/21 05:54 Seg Neutrophils % 72.9 % (40.0-70.0) H 05/04/21 05:54 Seg Neutrophils # 8.5 K/mm3 (1.8-7.7) H 05/04/21 05:54 PT 14.1 Sec. (12.2-14.9) 04/28/21 13:53 INR 0.98 (0.87-1.13) 04/28/21 13:53 APTT 31.8 Sec. (24.2-36.6) 04/28/21 13:53 Thrombin Time 16.2 Sec. (15.1-19.6) 04/20/21 17:44 D-Dimer 894.94 ng/mlDDU (0-234) H 04/28/21 09:29 Sodium 153 mmol/L (137-145) H D 05/06/21 05:32 Potassium 4.6 mmol/L (3.6-5.0) 05/06/21 05:32 Chloride 115.2 mmol/L (98-107) H 05/06/21 05:32 Carbon Dioxide 24 mmol/L (22-30) 05/06/21 05:32 Anion Gap 18 mmol/L 05/06/21 05:32 BUN 29 mg/dL (9-20) H 05/06/21 05:32 Creatinine 1.6 mg/dL (0.8-1.3) H 05/06/21 05:32 Estimated GFR 53 ml/min 05/06/21 05:32 BUN/Creatinine Ratio 18 % 05/06/21 05:32 Glucose 345 mg/dL (75-100) H 05/06/21 05:32 POC Glucose 317 mg/dL (70-105) H 05/13/21 12:18 Calcium 8.8 mg/dL (8.4-10.2) 05/06/21 05:32 Magnesium 1.90 mg/dL (1.7-2.3) 04/20/21 17:44 Ferritin 1157.0 ng/mL (30.0-300.0) H 04/28/21 09:29 Total Bilirubin 0.20 mg/dL (0.1-1.2) 05/06/21 05:32 AST 25 units/L (5-40) 05/06/21 05:32 ALT 64 units/L (7-56) H 05/06/21 05:32 Alkaline Phosphatase 168 units/L (35-129) H 05/06/21 05:32 Lactate Dehydrogenase 287 units/L (91-180) H 04/28/21 09:29 Total Creatine Kinase 79 units/L (55-170) 04/20/21 17:44 Total Creatine Kinase 81 units/L (55-170) 04/20/21 17:44 CK-MB (CK-2) 2.1 ng/mL (0.0-4.0) 04/20/21 17:44 CK-MB (CK-2) Rel Index 2.6 (0-4) 04/20/21 17:44 Troponin T 0.011 ng/mL (0.00-0.029) 04/20/21 17:44 C-Reactive Protein 15.40 mg/dL (0.00-1.30) H 04/28/21 09:29 Total Protein 7.4 g/dL (6.3-8.2) 05/06/21 05:32 Albumin 3.2 g/dL (3.9-5) L 05/06/21 05:32 Albumin/Globulin Ratio 0.8 % 05/06/21 05:32 TSH 1.040 mlU/mL (0.270-4.200) 04/20/21 19:42 Free T4 1.16 ng/dL (0.76-1.46) 04/20/21 19:42 Urine Color Saira (Yellow) 04/26/21 Unknown Urine Turbidity Cloudy (Clear) 04/26/21 Unknown Urine pH 5.0 (5.0-7.0) 04/26/21 Unknown Ur Specific [place] 1.020 (1.003-1.030) 04/26/21 Unknown Urine Protein 100 mg/dl mg/dL (Negative) 04/26/21 Unknown Urine Glucose (UA) >=500 mg/dL (Negative) 04/26/21 Unknown Urine Ketones Neg mg/dL (Negative) 04/26/21 Unknown Urine Blood Mod (Negative) 04/26/21 Unknown Urine Nitrite Neg (Negative) 04/26/21 Unknown Urine Bilirubin Neg (Negative) 04/26/21 Unknown Urine Urobilinogen 2.0 mg/dL (<2.0) 04/26/21 Unknown Ur Leukocyte Esterase Neg (Negative) 04/26/21 Unknown Urine WBC (Auto) 1.0 /HPF (0.0-6.0) 04/20/21 18:19 Urine RBC (Auto) 3.0 /HPF (0.0-6.0) 04/20/21 18:19 U Epithel Cells (Auto) < 1.0 /HPF (0-13.0) 04/20/21 18:19 Hyaline Casts 5 /LPF 04/20/21 18:19 Urine Mucus Few /HPF 04/20/21 18:19 Plasma/Serum Alcohol < 0.01 % (0-0.07) 04/20/21 17:44 Coronavirus (PCR) Negative (Negative) 05/09/21 09:20 Bravo/IV: Voiding Method Condom Catheter Active Medications - Current Medications Current Medications: Generic Name Dose Route Start Last Admin Trade Name Freq PRN Reason Stop Dose Admin Acetaminophen 650 mg 04/20/21 18:41 05/10/21 08:02 Acetaminophen 325 Mg Tab PO 650 mg Q4H PRN Administration Pain, Mild (1-3) Albuterol 2.5 mg 04/20/21 18:41 Albuterol 2.5 Mg/3 Ml Nebu IH Q3HRT PRN Shortness Of Breath Amiodarone HCl 200 mg 05/01/21 10:00 05/13/21 09:32 Amiodarone 200 Mg Tab PO 200 mg DAILY NAMAN Administration Amlodipine Besylate 10 mg 05/01/21 10:00 05/13/21 09:31 Amlodipine 10 Mg Tab PO 10 mg QDAY NAMAN Administration Lipase/Protease/Amylase 1 each 04/25/21 15:16 Lipase 10,500/Protease 25,000/Amylase 43,750 (Units) Dr Cap FEEDTUBE PRN PRN For Clogged Feeding Tube Apixaban 5 mg 04/29/21 10:00 05/13/21 09:32 Apixaban 5 Mg Tab PO 5 mg Q12HR NAMAN Administration Protocol Aspirin 81 mg 05/13/21 10:00 05/13/21 09:32 Aspirin Ec 81 Mg Tab PO 81 mg QDAY NAMAN Administration Atorvastatin Calcium 40 mg 04/20/21 22:00 05/12/21 23:27 Atorvastatin 40 Mg Tab PO 40 mg QHS NAMAN Administration Bisacodyl 10 mg 04/20/21 18:41 Bisacodyl 10 Mg Rect Supp ID QDAY PRN Constipation Cyclobenzaprine HCl 10 mg 04/20/21 19:00 04/24/21 12:36 Cyclobenzaprine 10 Mg Tab PO 10 mg TID PRN Administration Muscle Spasm Dextrose 0 ml 04/27/21 04:03 Dextrose 10% *Hypoglycemia IV PRN PRN Hypoglycemia Protocol Folic Acid 1 mg 04/20/21 18:59 05/13/21 09:33 Folic Acid 1 Mg Tab PO 1 mg QDAY NAMAN Administration Hydralazine HCl 10 mg 04/30/21 05:49 05/01/21 06:02 Hydralazine 20 Mg/1 Ml Inj IV 10 mg Q6HR PRN Administration Hypertension Hydralazine HCl 100 mg 05/01/21 12:00 05/13/21 09:32 Hydralazine 100 Mg Tab PO 100 mg TID NAMAN Administration Hydromorphone HCl 0.5 mg 04/20/21 18:41 05/13/21 09:33 Hydromorphone 1 Mg/1 Ml Inj IV 0.5 mg Q6H PRN Administration Pain , Severe (7-10) Sodium Chloride 1,000 mls @ 100 mls/hr 05/05/21 05:00 05/06/21 16:53 Nacl 0.45% 1000 Ml IV 100 mls/hr DIRECT NAMAN Administration Insulin Human Isoph/Insulin Regular 14 unit 05/13/21 08:40 Insulin Nph/Regular 70/30 Inj SUB-Q BIDDIAB NAMAN Insulin Human Lispro 0 unit 04/27/21 04:00 05/13/21 12:00 Insulin Lispro 100 Unit/Ml SUB-Q 6 unit Q6HR NAMAN Administration Protocol Lansoprazole 30 mg 04/28/21 11:00 05/13/21 09:31 Lansoprazole 30 Mg Solutab FEEDTUBE 30 mg QDAY NAMAN Administration Lorazepam 2 mg 04/20/21 18:44 04/28/21 23:41 Lorazepam 2 Mg/Ml Vial IV 2 mg Q1HR PRN Administration CIWA-Ar 8-15 Magnesium Hydroxide 30 ml 04/20/21 18:41 Magnesium Hydroxide (Mom) Oral Liqd Udc PO Q4H PRN Constipation Metoclopramide HCl 10 mg 04/20/21 18:41 Metoclopramide 10 Mg Tab PO Q6H PRN Nausea And Vomiting Metoprolol Tartrate 100 mg 04/29/21 12:00 05/13/21 09:32 Metoprolol Tartrate 50 Mg Tab PO 100 mg BID NAMAN Administration Ondansetron HCl 4 mg 04/20/21 18:41 Ondansetron 4 Mg/2 Ml Inj IV Q8H PRN Nausea And Vomiting Oxycodone/Acetaminophen 1 tab 04/20/21 18:41 04/28/21 18:05 Oxycodone /Acetaminophen 5-325mg Tab PO 1 tab Q12H PRN Administration Pain, Moderate (4-6) Promethazine HCl 25 mg 04/20/21 18:41 Promethazine 25 Mg Rect Supp ID Q6H PRN Nausea And Vomiting Simple Syrup 15 ml 04/25/21 15:16 Simple Syrup 15 Ml FEEDTUBE PRN PRN Hypoglycemia Simple Syrup 30 ml 04/25/21 15:16 Simple Syrup 15 Ml FEEDTUBE PRN PRN Hypoglycemia Sodium Bicarbonate 325 mg 04/25/21 15:16 Sodium Bicarbonate 325 Mg Tab FEEDTUBE PRN PRN For Clogged Feeding Tube Sodium Chloride 10 ml 04/20/21 18:41 05/11/21 21:55 Sodium Chloride 0.9% 10 Ml Flush Syringe IV 10 ml PRN PRN Administration LINE FLUSH Nutrition/Malnutrition Assess - Dietary Evaluation Nutrition/Malnutrition Findings: Nutrition Notes Start: 04/23/21 12:36 Freq: Status: Active Protocol: Document 05/10/21 13:25 [facility] (Rec: 05/10/21 13:28 [facility] [id number]) Nutrition Notes Initial or Follow up Brief Note Height 6 ft 3 in Weight 79.5 kg [place] Body Weight (kg) 89.09 BMI 21.9 Subjective/Other Information Glucerna 1.2 is out of stock. Is patient on ventilator? No Is Patient Ambulatory and/or Out of Bed No REE-([facility]-confined to bed) Calculation Used for Recommendations [facility] Additional Notes Pro needs 1-1.2g/k-95g/ day Fluid needs 1ml/kcal Nutrition Intervention Nutrition Support: If necessary, use Vital AF 1.2 at 55ml/hr with 85ml water flush q4h. Resume Glucerna 1. 2 when back in stock. Follow-Up By: 05/12/21 Additional Comments F/U: TF tolerance, wt, Glucerna 1.2 availbility
[2021-05-13] MEDS: INSULIN NPH/REGULAR 70/30 INJ SUB-Q SCH (17:00)
[2021-05-14] MEDS: INSULIN LISPRO 100 UNIT/ML SUB-Q SCH ×5 (01:14→23:06)
[2021-05-14] MEDS: hydrALAZINE 100 MG TAB PO SCH ×4 (09:49→22:04)
[2021-05-14] MEDS: INSULIN NPH/REGULAR 70/30 INJ SUB-Q SCH ×2 (09:49→19:15)
[2021-05-14] MEDS: FOLIC ACID 1 MG TAB PO SCH (09:49)
[2021-05-14] MEDS: ASPIRIN EC 81 MG TAB PO SCH (09:49)
[2021-05-14] MEDS: AMIODARONE 200 MG TAB PO SCH (09:49)
[2021-05-14] MEDS: APIXABAN 5 MG TAB PO SCH ×2 (09:49→22:04)
[2021-05-14] MEDS: LANSOPRAZOLE 30 MG SOLUTAB FEEDTUBE SCH (10:04)
--- NOTE | 2021-05-14 11:10 | Progress Note ---
Assessment and Plan Assessment and plan: 61-year-old male w/ hx of CVH with LHP, nicotine dependence, EtOH dependence who presented with worsening left-sided weakness and difficulty speaking for 2 days. Code stroke was initiated. Patient was also discovered to have new onset A. fib with RVR. Currently stable, requiring feeding tube awaiting safe discharge. #Acute/subacute CVA #Acute metabolic encephalopathy-Multifactorial -CT with extensive microvascular changes; MRI brain showed subacute multi- infarct cerebellar and brain stem / luba -US carotid <50% stenosis -stroke likely embolic from A fib; continue eliquis and metoprolol, amiodarone for rate control -TTE showed diastolic dysfunction; normal EF and no evidence of PFO Continue aspirin and lipitor Physical therapy/Occupational Therapy recommended subacute rehab, however the patient is uninsured #Dysphagia #Dysarthria -PEG tube placed on 04/28/2021 -tube feeds at 53cc/hr, will continue; nutrition managing -meds per PEG tube -continue speech therapy #BHASKAR, vasomotor nephropathy -continue free water flushes via PEG tube -avoid nephrotoxins and renally dose medications #COVID-19 positive -PCR 04/27/2021 -supportive care #Type 2 diabetes mellitus, uncontrolled -continue accuchecks and sliding scale -continue humulin 14 units qday -continue ADA diet -goal glucose 140-180, will adjust insulin as needed #Atrial fibrillation with RVR, (new onset) -rate currently controlled -continue amiodarone, metoprolol and eliquis #Moderate protein calorie malnutrition -albumin 3.2 -nutrition consult, continue TF #Advanced care planning #Discharge planning -Disease education conducted, care plan discussed, diagnoses discussed, prognosis discussed, and with the patients Daughter Soniya Mabry [phone]. She had concerns which were addressed. She was made aware that her Father could not be discharged to inpatient hospice at this time due to him having the PEG tube. We discussed her options of stopping use of the PEG tube, with the option to resume once the patient was in the care of family. She wants more time to discuss if taking care of the patient is feasible for the family. She voiced understanding. She plans to contact CM within the next 24 hours with a final decision. -Time: +30 minutes Disposition Plan: Continue medical management History Interval history: No acute events overnight. Patient opens his eyes to auditory stimuli, tube feeds running. Hospitalist Physical - Physical exam Narrative exam: GENERAL: Well-developed well-nourished. In no acute distress. HEENT: Dry mucous membranes. CHEST/LUNGS: CTAB on room air HEART/CARDIOVASCULAR: RRR. No murmur, rubs or gallops appreciated. ABDOMEN: + PEG tube. +BS. NT/ND. SKIN: No rashes noted. NEURO: Unable to assess. Opens eyes to name but does not track. MUSCULOSKELETAL: No joint effusion EXTREMITIES: No cyanosis, clubbing or edema. PSYCH: Unable to assess. - Constitutional Vitals: Temp Pulse Resp BP Pulse Ox 97.8 F 64 18 142/98 99 05/14/21 04:54 05/14/21 04:54 05/14/21 04:54 05/14/21 04:54 05/14/21 04:54 General appearance: Present: no acute distress, well-nourished, other (Dysarthria, confused) HEART Score - HEART Score Troponin: Troponin T 0.011 ng/mL (0.00-0.029) 04/20/21 17:44 Results - Labs CBC & Chem 7: 05/11/21 04:26 05/06/21 05:32 Labs: Laboratory Last Values WBC 12.3 K/mm3 (4.5-11.0) H 05/11/21 04:26 RBC 5.40 M/mm3 (3.65-5.03) H 05/11/21 04:26 Hgb 14.8 gm/dl (11.8-15.2) 05/11/21 04:26 Hct 48.0 % (35.5-45.6) H 05/11/21 04:26 MCV 89 fl (84-94) 05/11/21 04:26 MCH 27 pg (28-32) L 05/11/21 04:26 MCHC 31 % (32-34) L 05/11/21 04:26 RDW 13.3 % (13.2-15.2) 05/11/21 04:26 Plt Count 484 K/mm3 (140-440) H 05/11/21 04:26 Lymph % (Auto) 11.5 % (13.4-35.0) L 05/04/21 05:54 [place] % (Auto) 12.8 % (0.0-7.3) H 05/04/21 05:54 Eos % (Auto) 2.2 % (0.0-4.3) 05/04/21 05:54 Baso % (Auto) 0.6 % (0.0-1.8) 05/04/21 05:54 Lymph # (Auto) 1.3 K/mm3 (1.2-5.4) 05/04/21 05:54 [place] # (Auto) 1.5 K/mm3 (0.0-0.8) H 05/04/21 05:54 Eos # (Auto) 0.3 K/mm3 (0.0-0.4) 05/04/21 05:54 Baso # (Auto) 0.1 K/mm3 (0.0-0.1) 05/04/21 05:54 Seg Neutrophils % 72.9 % (40.0-70.0) H 05/04/21 05:54 Seg Neutrophils # 8.5 K/mm3 (1.8-7.7) H 05/04/21 05:54 PT 14.1 Sec. (12.2-14.9) 04/28/21 13:53 INR 0.98 (0.87-1.13) 04/28/21 13:53 APTT 31.8 Sec. (24.2-36.6) 04/28/21 13:53 Thrombin Time 16.2 Sec. (15.1-19.6) 04/20/21 17:44 D-Dimer 894.94 ng/mlDDU (0-234) H 04/28/21 09:29 Sodium 153 mmol/L (137-145) H D 05/06/21 05:32 Potassium 4.6 mmol/L (3.6-5.0) 05/06/21 05:32 Chloride 115.2 mmol/L (98-107) H 05/06/21 05:32 Carbon Dioxide 24 mmol/L (22-30) 05/06/21 05:32 Anion Gap 18 mmol/L 05/06/21 05:32 BUN 29 mg/dL (9-20) H 05/06/21 05:32 Creatinine 1.6 mg/dL (0.8-1.3) H 05/06/21 05:32 Estimated GFR 53 ml/min 05/06/21 05:32 BUN/Creatinine Ratio 18 % 05/06/21 05:32 Glucose 345 mg/dL (75-100) H 05/06/21 05:32 POC Glucose 202 mg/dL (70-105) H 05/14/21 04:48 Calcium 8.8 mg/dL (8.4-10.2) 05/06/21 05:32 Magnesium 1.90 mg/dL (1.7-2.3) 04/20/21 17:44 Ferritin 1157.0 ng/mL (30.0-300.0) H 04/28/21 09:29 Total Bilirubin 0.20 mg/dL (0.1-1.2) 05/06/21 05:32 AST 25 units/L (5-40) 05/06/21 05:32 ALT 64 units/L (7-56) H 05/06/21 05:32 Alkaline Phosphatase 168 units/L (35-129) H 05/06/21 05:32 Lactate Dehydrogenase 287 units/L (91-180) H 04/28/21 09:29 Total Creatine Kinase 79 units/L (55-170) 04/20/21 17:44 Total Creatine Kinase 81 units/L (55-170) 04/20/21 17:44 CK-MB (CK-2) 2.1 ng/mL (0.0-4.0) 04/20/21 17:44 CK-MB (CK-2) Rel Index 2.6 (0-4) 04/20/21 17:44 Troponin T 0.011 ng/mL (0.00-0.029) 04/20/21 17:44 C-Reactive Protein 15.40 mg/dL (0.00-1.30) H 04/28/21 09:29 Total Protein 7.4 g/dL (6.3-8.2) 05/06/21 05:32 Albumin 3.2 g/dL (3.9-5) L 05/06/21 05:32 Albumin/Globulin Ratio 0.8 % 05/06/21 05:32 TSH 1.040 mlU/mL (0.270-4.200) 04/20/21 19:42 Free T4 1.16 ng/dL (0.76-1.46) 04/20/21 19:42 Urine Color [place] (Yellow) 04/26/21 Unknown Urine Turbidity Cloudy (Clear) 04/26/21 Unknown Urine pH 5.0 (5.0-7.0) 04/26/21 Unknown Ur Specific [place] 1.020 (1.003-1.030) 04/26/21 Unknown Urine Protein 100 mg/dl mg/dL (Negative) 04/26/21 Unknown Urine Glucose (UA) >=500 mg/dL (Negative) 04/26/21 Unknown Urine Ketones Neg mg/dL (Negative) 04/26/21 Unknown Urine Blood Mod (Negative) 04/26/21 Unknown Urine Nitrite Neg (Negative) 04/26/21 Unknown Urine Bilirubin Neg (Negative) 04/26/21 Unknown Urine Urobilinogen 2.0 mg/dL (<2.0) 04/26/21 Unknown Ur Leukocyte Esterase Neg (Negative) 04/26/21 Unknown Urine WBC (Auto) 1.0 /HPF (0.0-6.0) 04/20/21 18:19 Urine RBC (Auto) 3.0 /HPF (0.0-6.0) 04/20/21 18:19 U Epithel Cells (Auto) < 1.0 /HPF (0-13.0) 04/20/21 18:19 Hyaline Casts 5 /LPF 04/20/21 18:19 Urine Mucus Few /HPF 04/20/21 18:19 Plasma/Serum Alcohol < 0.01 % (0-0.07) 04/20/21 17:44 Coronavirus (PCR) Negative (Negative) 05/09/21 09:20 Bravo/IV: Voiding Method Incontinent Active Medications - Current Medications Current Medications: Generic Name Dose Route Start Last Admin Trade Name Freq PRN Reason Stop Dose Admin Acetaminophen 650 mg 04/20/21 18:41 05/10/21 08:02 Acetaminophen 325 Mg Tab PO 650 mg Q4H PRN Administration Pain, Mild (1-3) Albuterol 2.5 mg 04/20/21 18:41 Albuterol 2.5 Mg/3 Ml Nebu IH Q3HRT PRN Shortness Of Breath Amiodarone HCl 200 mg 05/01/21 10:00 05/14/21 09:49 Amiodarone 200 Mg Tab PO 200 mg DAILY NAMAN Administration Amlodipine Besylate 10 mg 05/01/21 10:00 05/13/21 09:31 Amlodipine 10 Mg Tab PO 10 mg QDAY NAMAN Administration Lipase/Protease/Amylase 1 each 04/25/21 15:16 Lipase 10,500/Protease 25,000/Amylase 43,750 (Units) Dr [place] FEEDTUBE PRN PRN For Clogged Feeding Tube Apixaban 5 mg 04/29/21 10:00 05/14/21 09:49 Apixaban 5 Mg Tab PO 5 mg Q12HR NAMAN Administration Protocol Aspirin 81 mg 05/13/21 10:00 05/14/21 09:49 Aspirin Ec 81 Mg Tab PO 81 mg QDAY NAMAN Administration Atorvastatin Calcium 40 mg 04/20/21 22:00 05/13/21 21:04 Atorvastatin 40 Mg Tab PO 40 mg QHS NAMAN Administration Bisacodyl 10 mg 04/20/21 18:41 Bisacodyl 10 Mg Rect Supp [place] QDAY PRN Constipation Cyclobenzaprine HCl 10 mg 04/20/21 19:00 04/24/21 12:36 Cyclobenzaprine 10 Mg Tab PO 10 mg TID PRN Administration Muscle Spasm Dextrose 0 ml 04/27/21 04:03 Dextrose 10% *Hypoglycemia IV PRN PRN Hypoglycemia Protocol Folic Acid 1 mg 04/20/21 18:59 05/14/21 09:49 Folic Acid 1 Mg Tab PO 1 mg QDAY NAMAN Administration Hydralazine HCl 10 mg 04/30/21 05:49 05/01/21 06:02 Hydralazine 20 Mg/1 Ml Inj IV 10 mg Q6HR PRN Administration Hypertension Hydralazine HCl 100 mg 05/01/21 12:00 05/14/21 09:49 Hydralazine 100 Mg Tab PO 100 mg TID NAMAN Administration Hydromorphone HCl 0.5 mg 04/20/21 18:41 05/13/21 09:33 Hydromorphone 1 Mg/1 Ml Inj IV 0.5 mg Q6H PRN Administration Pain , Severe (7-10) Sodium Chloride 1,000 mls @ 100 mls/hr 05/05/21 05:00 05/06/21 16:53 Nacl 0.45% 1000 Ml IV 100 mls/hr DIRECT NAMAN Administration Insulin Human Isoph/Insulin Regular 14 unit 05/13/21 08:40 05/14/21 09:49 Insulin Nph/Regular 70/30 Inj SUB-Q 14 unit BIDDIAB NAMAN Administration Insulin Human Lispro 0 unit 04/27/21 04:00 05/14/21 05:14 Insulin Lispro 100 Unit/Ml SUB-Q 3 unit Q6HR NAMAN Administration Protocol Lansoprazole 30 mg 04/28/21 11:00 05/14/21 10:04 Lansoprazole 30 Mg Solutab FEEDTUBE 30 mg QDAY NAMAN Administration Lorazepam 2 mg 04/20/21 18:44 04/28/21 23:41 Lorazepam 2 Mg/Ml Vial IV 2 mg Q1HR PRN Administration CIWA-Ar 8-15 Magnesium Hydroxide 30 ml 04/20/21 18:41 Magnesium Hydroxide (Mom) Oral Liqd Udc PO Q4H PRN Constipation Metoclopramide HCl 10 mg 04/20/21 18:41 Metoclopramide 10 Mg Tab PO Q6H PRN Nausea And Vomiting Metoprolol Tartrate 100 mg 04/29/21 12:00 05/13/21 21:04 Metoprolol Tartrate 50 Mg Tab PO 100 mg BID NAMAN Administration Ondansetron HCl 4 mg 04/20/21 18:41 Ondansetron 4 Mg/2 Ml Inj IV Q8H PRN Nausea And Vomiting Oxycodone/Acetaminophen 1 tab 04/20/21 18:41 04/28/21 18:05 Oxycodone /Acetaminophen 5-325mg Tab PO 1 tab Q12H PRN Administration Pain, Moderate (4-6) Promethazine HCl 25 mg 04/20/21 18:41 Promethazine 25 Mg Rect Supp [place] Q6H PRN Nausea And Vomiting Simple Syrup 15 ml 04/25/21 15:16 Simple Syrup 15 Ml FEEDTUBE PRN PRN Hypoglycemia Simple Syrup 30 ml 04/25/21 15:16 Simple Syrup 15 Ml FEEDTUBE PRN PRN Hypoglycemia Sodium Bicarbonate 325 mg 04/25/21 15:16 Sodium Bicarbonate 325 Mg Tab FEEDTUBE PRN PRN For Clogged Feeding Tube Sodium Chloride 10 ml 04/20/21 18:41 05/13/21 21:05 Sodium Chloride 0.9% 10 Ml Flush Syringe IV 10 ml PRN PRN Administration LINE FLUSH Nutrition/Malnutrition Assess - Dietary Evaluation Nutrition/Malnutrition Findings: Nutrition Notes Start: 04/23/21 12:36 Freq: Status: Active Protocol: Document 05/13/21 18:15 ANNIKA (Rec: 05/13/21 18:38 ANNIKA [id number]) Nutrition Notes Initial or Follow up Brief Note Current Diet TF-Vital AF 1.2 [place] @ 53 ml/hr (since D 05/10). Height 6 ft 3 in Weight 79.5 kg [place] Body Weight (kg) 89.09 BMI 21.9 Weight change and time frame No body weight change reported in 19 days. Weight Status Appropriate Subjective/Other Information RD consult for routine F/U on TF tolerance. TF continues as prescribed and well tolerated, according to RN notes. Glucerna 1.2 Maurice continues out of stock. [employer] evaluation still pending. Percent of energy/protein needs met: Prescribed TF-Vital AF 1.2 Maurice @ 53 ml/hr provides for energy/protein needs (1,520 Kcal/95 g) during LOS, 75% Kcal; 100% AA. #1 Nutrition Diagnosis Inadequate oral intake Diagnosis Progress(for reassessment Continues documentation) Is patient on ventilator? No Is Patient Ambulatory and/or Out of Bed No REE-(Lipscomb-St. Jeor-confined to bed) 2020.748 Calculation Used for Recommendations Lipscomb-St Jeor Additional Notes Protein: 1-1.2 g/Kg; 80-95 g/ day. Fluids: 1 ml/Kcal, or as per MD. Nutrition Intervention Nutrition Support: Continue Vital AF 1.2 Maurice @ 53 ml/hr. Flush: 170 ml water Q 4 hr, or as per MD. Kcal 1,520 Protein (gm) 95 Carbohydrates (gm) 140 Fat (gm) 68 Fluid (mL) 1,027 Fiber (gm) 7 % RDI: 75% Kcal; 100% AA. Goal #1 Provide at least 75% of energy /protein needs through Enteral Feeding during LOS. Goal #2 Maintain body weight within +/ -3% of admission body weight during LOS. Follow-Up By: 05/20/21 Additional Comments Continue monitoring TF tolerance and BM.
[2021-05-14] MEDS: amLODIPine 10 MG TAB PO SCH (12:44)
[2021-05-14] MEDS: METOPROLOL TARTRATE 50 MG TAB PO SCH ×2 (12:44→22:04)
[2021-05-15] MEDS: INSULIN LISPRO 100 UNIT/ML SUB-Q SCH ×3 (05:31→17:39)
[2021-05-15 06:14] LABS: Mean Corpuscular HGB Conc 31 % (32-34); Mean Corpuscular Volume 89 fl (84-94); Platelet Count 267 K/mm3 (140-440); Red Blood Count 5.54 M/mm3 (3.65-5.03); Red Cell Distribution Width 13.8 % (13.2-15.2)
[2021-05-15 06:15] LABS: Hematocrit 49.4 % (35.5-45.6); Hemoglobin 15.4 gm/dl (11.8-15.2)
[2021-05-15 06:34] LABS: Calcium 9.7 mg/dL (8.4-10.2)
[2021-05-15] MEDS ORDERED: METOCLOPRAMIDE 10 MG TAB PO PRN (09:00)
[2021-05-15] MEDS: INSULIN NPH/REGULAR 70/30 INJ SUB-Q SCH ×2 (09:03→16:22)
[2021-05-15] MEDS: ASPIRIN EC 81 MG TAB PO SCH (09:04)
[2021-05-15] MEDS: FOLIC ACID 1 MG TAB PO SCH (09:05)
[2021-05-15] MEDS: APIXABAN 5 MG TAB PO SCH ×2 (09:05→21:36)
[2021-05-15] MEDS: METOPROLOL TARTRATE 50 MG TAB PO SCH ×2 (09:05→21:38)
[2021-05-15] MEDS: amLODIPine 10 MG TAB PO SCH (09:05)
[2021-05-15] MEDS: LANSOPRAZOLE 30 MG SOLUTAB FEEDTUBE SCH (09:05)
[2021-05-15] MEDS: AMIODARONE 200 MG TAB PO SCH (09:06)
[2021-05-15] MEDS: hydrALAZINE 100 MG TAB PO SCH ×3 (09:10→21:36)
[2021-05-15] MEDS: FREE WATER PO SCH ×3 (09:30→22:01)
--- NOTE | 2021-05-15 09:35 | Consultation ---
History of Present Illness - Reason for Consult acute renal failure, hypernatremia - History of Present Illness Mr. Galvan is a 61yo with hx of CVA who presented to the ED on Apr 20 w/ complaint of left side weakness and slurred speech. Code stroke was called and teleneurology consulted. Patient was found to have symptoms consistent with CVA as well as new onset atrial fibrillation with rapid ventricular response. The patient was treated with medical cardioversion with normalization of heart rate. The patient was placed in observation status and admitted to medical floor and initiated on CVA protocol. At admission, labs were notable for SCr 0.9mg/dL. Nephrology consulted today for Na 171 and SCr 2.7mg/dL/ Past History Past Medical History: other (See HPI) Past Surgical History: appendectomy Social history: smoking, alcohol abuse Family history: hypertension Medications and Allergies Allergies Allergy/AdvReac Type Severity Reaction Status Date / Time No Known Allergies Allergy Verified 08/24/20 14:13 Home Medications Medication Instructions Recorded Confirmed Last Taken Type No Known Home Medications [No 04/30/21 04/30/21 Unknown History Reported Home Medications] Active Meds: Active Medications Acetaminophen (Acetaminophen 325 Mg Tab) 650 mg PO Q4H PRN PRN Reason: Pain, Mild (1-3) Last Admin: 05/10/21 08:02 Dose: 650 mg Albuterol (Albuterol 2.5 Mg/3 Ml Nebu) 2.5 mg IH Q3HRT PRN PRN Reason: Shortness Of Breath Amiodarone HCl (Amiodarone 200 Mg Tab) 200 mg PO DAILY [facility] Last Admin: 05/15/21 09:06 Dose: 200 mg Amlodipine Besylate (Amlodipine 10 Mg Tab) 10 mg PO QDAY [facility] Last Admin: 05/15/21 09:05 Dose: 10 mg Lipase/Protease/Amylase (Lipase 10,500/Protease 25,000/Amylase 43,750 (Units) Dr Willingham) 1 each FEEDTUBE PRN PRN PRN Reason: For Clogged Feeding Tube Apixaban (Apixaban 5 Mg Tab) 5 mg PO Q12HR [facility]; Protocol Last Admin: 05/15/21 09:05 Dose: 5 mg Aspirin (Aspirin Ec 81 Mg Tab) 81 mg PO QDAY [facility] Last Admin: 05/15/21 09:04 Dose: 81 mg Atorvastatin Calcium (Atorvastatin 40 Mg Tab) 40 mg PO QHS [facility] Last Admin: 05/14/21 22:04 Dose: 40 mg Bisacodyl (Bisacodyl 10 Mg Rect Supp) [address] QDAY PRN PRN Reason: Constipation Cyclobenzaprine HCl (Cyclobenzaprine 10 Mg Tab) 10 mg PO TID PRN PRN Reason: Muscle Spasm Last Admin: 04/24/21 12:36 Dose: 10 mg Dextrose (Dextrose 10% *Hypoglycemia) 0 ml IV PRN PRN; Protocol PRN Reason: Hypoglycemia Folic Acid (Folic Acid 1 Mg Tab) 1 mg PO QDAY [facility] Last Admin: 05/15/21 09:05 Dose: 1 mg Hydralazine HCl (Hydralazine 20 Mg/1 Ml Inj) 10 mg IV Q6HR PRN PRN Reason: Hypertension Last Admin: 05/01/21 06:02 Dose: 10 mg Hydralazine HCl (Hydralazine 100 Mg Tab) 100 mg PO TID [facility] Last Admin: 05/15/21 09:10 Dose: 100 mg Hydromorphone HCl (Hydromorphone 1 Mg/1 Ml Inj) 0.5 mg IV Q6H PRN PRN Reason: Pain , Severe (7-10) Last Admin: 05/13/21 09:33 Dose: 0.5 mg Dextrose (D10w) 1,000 mls @ 100 mls/hr IV DIRECT NAMAN Insulin Human Isoph/Insulin Regular (Insulin Nph/Regular 70/30 Inj) 14 unit SUB-Q BIDDIAB [facility] Last Admin: 05/15/21 09:03 Dose: Not Given Insulin Human Lispro (Insulin Lispro 100 Unit/Ml) 0 unit SUB-Q Q6HR NAMAN; P rotocol Last Admin: 05/15/21 05:31 Dose: 4 unit Lansoprazole (Lansoprazole 30 Mg Solutab) 30 mg FEEDTUBE QDAY [facility] Last Admin: 05/15/21 09:05 Dose: 30 mg Lorazepam (Lorazepam 2 Mg/Ml Vial) 2 mg IV Q1HR PRN PRN Reason: CIWA-Ar 8-15 Last Admin: 04/28/21 23:41 Dose: 2 mg Magnesium Hydroxide (Magnesium Hydroxide (Mom) Oral Liqd Udc) 30 ml PO Q4H PRN PRN Reason: Constipation Metoclopramide HCl (Metoclopramide 10 Mg Tab) 5 mg PO Q6H PRN PRN Reason: Nausea And Vomiting Metoprolol Tartrate (Metoprolol Tartrate 50 Mg Tab) 100 mg PO BID [facility]AMAN Last Admin: 05/15/21 09:05 Dose: 100 mg Ondansetron HCl (Ondansetron 4 Mg/2 Ml Inj) 4 mg IV Q8H PRN PRN Reason: Nausea And Vomiting Oxycodone/Acetaminophen (Oxycodone /Acetaminophen 5-325mg Tab) 1 tab PO Q12H PRN PRN Reason: Pain, Moderate (4-6) Last Admin: 04/28/21 18:05 Dose: 1 tab Promethazine HCl (Promethazine 25 Mg Rect Supp) [address] Q6H PRN PRN Reason: Nausea And Vomiting Simple Syrup (Simple Syrup 15 Ml) 15 ml FEEDTUBE PRN PRN PRN Reason: Hypoglycemia Simple Syrup (Simple Syrup 15 Ml) 30 ml FEEDTUBE PRN PRN PRN Reason: Hypoglycemia Sodium Bicarbonate (Sodium Bicarbonate 325 Mg Tab) 325 mg FEEDTUBE PRN PRN PRN Reason: For Clogged Feeding Tube Sodium Chloride (Sodium Chloride 0.9% 10 Ml Flush Syringe) 10 ml IV PRN PRN PRN Reason: LINE FLUSH Last Admin: 05/13/21 21:05 Dose: 10 ml Review of Systems ROS unobtainable: due to mental status Exam - Vital Signs Vital signs: Vital Signs Temp Pulse Resp BP Pulse Ox 98.0 F 135 H 16 195/112 98 04/20/21 16:33 04/20/21 16:33 04/20/21 16:33 04/20/21 16:33 04/20/21 16:33 - General Appearance General appearance: well-developed, well-nourished EENT: ATNC Respiratory: Clear to Ascultation Heart: regular, S1S2 Gastrointestinal: Present: normal Integumentary: no rash, warm and dry Neurologic: other (opens eyes to verbal stimuli) Musculoskeletal: Present: other (no edema) Psychiatric: cooperative Results - Lab Results 05/15/21 04:38 05/15/21 18:37 Most recent lab results Calcium 9.7 mg/dL (8.4-10.2) 05/15/21 04:38 Magnesium 1.90 mg/dL (1.7-2.3) 04/20/21 17:44 Assessment and Plan Impression: * Acute kidney injury secondary to prerenal azotemia due to dehydration * Hypernatremia secondary to dehydration * Acute CVA with left hemiparesis * Atrial fibrillation * HFrEF --TTE: EF 45 to 50%. Hypokinesis of basal inferior septal wall. Hypokinesis inferior wall. Right ventricle systolic function is normal. Bubble study did not demonstrate PFO (Apr 20) * DM Plan: * Agree with IVF - change to D5W 125ml/hour * Continue free H2O with TF * Repeat BMP this afternoon * Rate control/anticoagulation per cardiology * Dose medications for renal function * Avoid potential nephrotoxins * Daily BMP
[2021-05-15] MEDS ORDERED: DEXTROSE 10% IN WATER 1,000 ML IV SCH (10:00)
[2021-05-15] MEDS: DEXTROSE 5% IN WATER 1,000 ML IV SCH ×2 (12:23→21:42)
--- NOTE | 2021-05-15 13:15 | Progress Note ---
Assessment and Plan Assessment and plan: 61-year-old male w/ hx of CVH with LHP, nicotine dependence, EtOH dependence who presented with worsening left-sided weakness and difficulty speaking for 2 days. Code stroke was initiated. Patient was also discovered to have new onset A. fib with RVR. Currently stable, requiring feeding tube awaiting safe discharge. Patient is uninsured and will require total care at this time. Exploring hospice, NOK will need to agree to stopping use of PEG tube. #Acute/subacute CVA #Acute metabolic encephalopathy-Multifactorial -CT with extensive microvascular changes; MRI brain showed subacute multi- infarct cerebellar and brain stem / luba -US carotid <50% stenosis -stroke likely embolic from A fib; continue eliquis and metoprolol, amiodarone for rate control -TTE showed diastolic dysfunction; normal EF and no evidence of PFO Continue aspirin and lipitor Physical therapy/Occupational Therapy recommended subacute rehab, however the patient is uninsured #Dysphagia #Dysarthria -PEG tube placed on 04/28/2021 -tube feeds at 53cc/hr, will continue; nutrition managing -meds per PEG tube -continue speech therapy #BHASKAR, vasomotor nephropathy -worsening, SCr 2.4 -continue free water flushes via PEG tube -avoid nephrotoxins and renally dose medications -Nephrology consulted, assistance appreciated #Hypernatremia -Na 171 -continue free water flushes -D10 started at 100cc/hr #COVID-19 positive -PCR 04/27/2021 -supportive care #Type 2 diabetes mellitus, uncontrolled -continue accuchecks and sliding scale -continue humulin 14 units qday -continue ADA diet -goal glucose 140-180, will adjust insulin as needed #Atrial fibrillation with RVR, (new onset) -rate currently controlled -continue amiodarone, metoprolol and eliquis #Moderate protein calorie malnutrition -albumin 3.2 -nutrition consult, continue TF #Advanced care planning #Discharge planning -Legal next of kin Daughter Soniya Mabry ([phone]) still has not made a decision regarding PEG tubed. Discussed with CM about contacting Adult Protective Services and starting the process for Guardianship for the patient. History Interval history: No acute events overnight. Patient opens his eyes to auditory stimuli, does not respond to commands. Hospitalist Physical - Physical exam Narrative exam: GENERAL: Well-developed well-nourished. In no acute distress. HEENT: Dry mucous membranes. CHEST/LUNGS: CTAB on room air HEART/CARDIOVASCULAR: RRR. No murmur, rubs or gallops appreciated. ABDOMEN: + PEG tube. +BS. NT/ND. NEURO: Unable to assess. EXTREMITIES: No cyanosis, clubbing or edema. PSYCH: Unable to assess. - Constitutional Vitals: Temp Pulse Resp BP Pulse Ox 97.4 F L 70 14 130/86 100 05/15/21 09:26 05/15/21 09:26 05/15/21 09:26 05/15/21 09:26 05/15/21 09:26 General appearance: Present: no acute distress, well-nourished, other (Dysarthria, confused) HEART Score - HEART Score Troponin: Troponin T 0.011 ng/mL (0.00-0.029) 04/20/21 17:44 Results - Labs CBC & Chem 7: 05/15/21 04:38 05/15/21 04:38 Labs: Laboratory Last Values WBC 11.2 K/mm3 (4.5-11.0) H 05/15/21 04:38 RBC 5.54 M/mm3 (3.65-5.03) H 05/15/21 04:38 Hgb 15.4 gm/dl (11.8-15.2) H 05/15/21 04:38 Hct 49.4 % (35.5-45.6) H 05/15/21 04:38 MCV 89 fl (84-94) 05/15/21 04:38 MCH 28 pg (28-32) 05/15/21 04:38 MCHC 31 % (32-34) L 05/15/21 04:38 RDW 13.8 % (13.2-15.2) 05/15/21 04:38 Plt Count 267 K/mm3 (140-440) 05/15/21 04:38 Lymph % (Auto) 11.5 % (13.4-35.0) L 05/04/21 05:54 [place] % (Auto) 12.8 % (0.0-7.3) H 05/04/21 05:54 Eos % (Auto) 2.2 % (0.0-4.3) 05/04/21 05:54 Baso % (Auto) 0.6 % (0.0-1.8) 05/04/21 05:54 Lymph # (Auto) 1.3 K/mm3 (1.2-5.4) 05/04/21 05:54 [place] # (Auto) 1.5 K/mm3 (0.0-0.8) H 05/04/21 05:54 Eos # (Auto) 0.3 K/mm3 (0.0-0.4) 05/04/21 05:54 Baso # (Auto) 0.1 K/mm3 (0.0-0.1) 05/04/21 05:54 Seg Neutrophils % 72.9 % (40.0-70.0) H 05/04/21 05:54 Seg Neutrophils # 8.5 K/mm3 (1.8-7.7) H 05/04/21 05:54 PT 14.1 Sec. (12.2-14.9) 04/28/21 13:53 INR 0.98 (0.87-1.13) 04/28/21 13:53 APTT 31.8 Sec. (24.2-36.6) 04/28/21 13:53 Thrombin Time 16.2 Sec. (15.1-19.6) 04/20/21 17:44 D-Dimer 894.94 ng/mlDDU (0-234) H 04/28/21 09:29 Sodium 171 mmol/L (137-145) H* 05/15/21 04:38 Potassium 4.4 mmol/L (3.6-5.0) 05/15/21 04:38 Chloride 133.2 mmol/L (98-107) H 05/15/21 04:38 Carbon Dioxide 21 mmol/L (22-30) L 05/15/21 04:38 Anion Gap 21 mmol/L 05/15/21 04:38 BUN 76 mg/dL (9-20) H 05/15/21 04:38 Creatinine 2.4 mg/dL (0.8-1.3) H 05/15/21 04:38 Estimated GFR 33 ml/min 05/15/21 04:38 BUN/Creatinine Ratio 32 % 05/15/21 04:38 Glucose 273 mg/dL (75-100) H 05/15/21 04:38 POC Glucose 264 mg/dL (70-105) H 05/15/21 11:48 Calcium 9.7 mg/dL (8.4-10.2) 05/15/21 04:38 Magnesium 1.90 mg/dL (1.7-2.3) 04/20/21 17:44 Ferritin 1157.0 ng/mL (30.0-300.0) H 04/28/21 09:29 Total Bilirubin 0.20 mg/dL (0.1-1.2) 05/06/21 05:32 AST 25 units/L (5-40) 05/06/21 05:32 ALT 64 units/L (7-56) H 05/06/21 05:32 Alkaline Phosphatase 168 units/L (35-129) H 05/06/21 05:32 Lactate Dehydrogenase 287 units/L (91-180) H 04/28/21 09:29 Total Creatine Kinase 79 units/L (55-170) 04/20/21 17:44 Total Creatine Kinase 81 units/L (55-170) 04/20/21 17:44 CK-MB (CK-2) 2.1 ng/mL (0.0-4.0) 04/20/21 17:44 CK-MB (CK-2) Rel Index 2.6 (0-4) 04/20/21 17:44 Troponin T 0.011 ng/mL (0.00-0.029) 04/20/21 17:44 C-Reactive Protein 15.40 mg/dL (0.00-1.30) H 04/28/21 09:29 Total Protein 7.4 g/dL (6.3-8.2) 05/06/21 05:32 Albumin 3.2 g/dL (3.9-5) L 05/06/21 05:32 Albumin/Globulin Ratio 0.8 % 05/06/21 05:32 TSH 1.040 mlU/mL (0.270-4.200) 04/20/21 19:42 Free T4 1.16 ng/dL (0.76-1.46) 04/20/21 19:42 Urine Color [place] (Yellow) 04/26/21 Unknown Urine Turbidity Cloudy (Clear) 04/26/21 Unknown Urine pH 5.0 (5.0-7.0) 04/26/21 Unknown Ur Specific [place] 1.020 (1.003-1.030) 04/26/21 Unknown Urine Protein 100 mg/dl mg/dL (Negative) 04/26/21 Unknown Urine Glucose (UA) >=500 mg/dL (Negative) 04/26/21 Unknown Urine Ketones Neg mg/dL (Negative) 04/26/21 Unknown Urine Blood Mod (Negative) 04/26/21 Unknown Urine Nitrite Neg (Negative) 04/26/21 Unknown Urine Bilirubin Neg (Negative) 04/26/21 Unknown Urine Urobilinogen 2.0 mg/dL (<2.0) 04/26/21 Unknown Ur Leukocyte Esterase Neg (Negative) 04/26/21 Unknown Urine WBC (Auto) 1.0 /HPF (0.0-6.0) 04/20/21 18:19 Urine RBC (Auto) 3.0 /HPF (0.0-6.0) 04/20/21 18:19 U Epithel Cells (Auto) < 1.0 /HPF (0-13.0) 04/20/21 18:19 Hyaline Casts 5 /LPF 04/20/21 18:19 Urine Mucus Few /HPF 04/20/21 18:19 Plasma/Serum Alcohol < 0.01 % (0-0.07) 04/20/21 17:44 Coronavirus (PCR) Negative (Negative) 05/09/21 09:20 Bravo/IV: Voiding Method Incontinent Active Medications - Current Medications Current Medications: Generic Name Dose Route Start Last Admin Trade Name Freq PRN Reason Stop Dose Admin Acetaminophen 650 mg 04/20/21 18:41 05/10/21 08:02 Acetaminophen 325 Mg Tab PO 650 mg Q4H PRN Administration Pain, Mild (1-3) Albuterol 2.5 mg 04/20/21 18:41 Albuterol 2.5 Mg/3 Ml Nebu IH Q3HRT PRN Shortness Of Breath Amiodarone HCl 200 mg 05/01/21 10:00 05/15/21 09:06 Amiodarone 200 Mg Tab PO 200 mg DAILY NAMAN Administration Amlodipine Besylate 10 mg 05/01/21 10:00 05/15/21 09:05 Amlodipine 10 Mg Tab PO 10 mg QDAY NAMAN Administration Lipase/Protease/Amylase 1 each 04/25/21 15:16 Lipase 10,500/Protease 25,000/Amylase 43,750 (Units) Dr Willingham FEEDTUBE PRN PRN For Clogged Feeding Tube Apixaban 5 mg 04/29/21 10:00 05/15/21 09:05 Apixaban 5 Mg Tab PO 5 mg Q12HR NAMAN Administration Protocol Aspirin 81 mg 05/13/21 10:00 05/15/21 09:04 Aspirin Ec 81 Mg Tab PO 81 mg QDAY NAMAN Administration Atorvastatin Calcium 40 mg 04/20/21 22:00 05/14/21 22:04 Atorvastatin 40 Mg Tab PO 40 mg QHS NAMAN Administration Bisacodyl 10 mg 04/20/21 18:41 Bisacodyl 10 Mg Rect Supp [place] QDAY PRN Constipation Cyclobenzaprine HCl 10 mg 04/20/21 19:00 04/24/21 12:36 Cyclobenzaprine 10 Mg Tab PO 10 mg TID PRN Administration Muscle Spasm Dextrose 0 ml 04/27/21 04:03 Dextrose 10% *Hypoglycemia IV PRN PRN Hypoglycemia Protocol Folic Acid 1 mg 04/20/21 18:59 05/15/21 09:05 Folic Acid 1 Mg Tab PO 1 mg QDAY NAMAN Administration Hydralazine HCl 10 mg 04/30/21 05:49 05/01/21 06:02 Hydralazine 20 Mg/1 Ml Inj IV 10 mg Q6HR PRN Administration Hypertension Hydralazine HCl 100 mg 05/01/21 12:00 05/15/21 09:10 Hydralazine 100 Mg Tab PO 100 mg TID NAMAN Administration Hydromorphone HCl 0.5 mg 04/20/21 18:41 05/13/21 09:33 Hydromorphone 1 Mg/1 Ml Inj IV 0.5 mg Q6H PRN Administration Pain , Severe (7-10) Dextrose 1,000 mls @ 125 mls/hr 05/15/21 10:00 05/15/21 12:23 D5w IV 125 mls/hr DIRECT NAMAN Administration Insulin Human Isoph/Insulin Regular 14 unit 05/13/21 08:40 05/15/21 09:03 Insulin Nph/Regular 70/30 Inj SUB-Q Not Given BIDDIAB [facility] Insulin Human Lispro 0 unit 04/27/21 04:00 05/15/21 12:22 Insulin Lispro 100 Unit/Ml SUB-Q 4 unit Q6HR NAMAN Administration Protocol Lansoprazole 30 mg 04/28/21 11:00 05/15/21 09:05 Lansoprazole 30 Mg Solutab FEEDTUBE 30 mg QDAY NAMAN Administration Lorazepam 2 mg 04/20/21 18:44 04/28/21 23:41 Lorazepam 2 Mg/Ml Vial IV 2 mg Q1HR PRN Administration CIWA-Ar 8-15 Magnesium Hydroxide 30 ml 04/20/21 18:41 Magnesium Hydroxide (Mom) Oral Liqd Udc PO Q4H PRN Constipation Metoclopramide HCl 5 mg 05/15/21 09:00 Metoclopramide 10 Mg Tab PO Q6H PRN Nausea And Vomiting Metoprolol Tartrate 100 mg 04/29/21 12:00 05/15/21 09:05 Metoprolol Tartrate 50 Mg Tab PO 100 mg BID NAMAN Administration Ondansetron HCl 4 mg 04/20/21 18:41 Ondansetron 4 Mg/2 Ml Inj IV Q8H PRN Nausea And Vomiting Oxycodone/Acetaminophen 1 tab 04/20/21 18:41 04/28/21 18:05 Oxycodone /Acetaminophen 5-325mg Tab PO 1 tab Q12H PRN Administration Pain, Moderate (4-6) Promethazine HCl 25 mg 04/20/21 18:41 Promethazine 25 Mg Rect Supp [place] Q6H PRN Nausea And Vomiting Simple Syrup 15 ml 04/25/21 15:16 Simple Syrup 15 Ml FEEDTUBE PRN PRN Hypoglycemia Simple Syrup 30 ml 04/25/21 15:16 Simple Syrup 15 Ml FEEDTUBE PRN PRN Hypoglycemia Sodium Bicarbonate 325 mg 04/25/21 15:16 Sodium Bicarbonate 325 Mg Tab FEEDTUBE PRN PRN For Clogged Feeding Tube Sodium Chloride 10 ml 04/20/21 18:41 05/13/21 21:05 Sodium Chloride 0.9% 10 Ml Flush Syringe IV 10 ml PRN PRN Administration LINE FLUSH Nutrition/Malnutrition Assess - Dietary Evaluation Nutrition/Malnutrition Findings: Nutrition Notes Start: 04/23/21 12:36 Freq: Status: Active Protocol: Document 05/14/21 12:46 ANNIKA (Rec: 05/14/21 12:55 ANNIKA [id number]) Nutrition Notes Initial or Follow up Brief Note Current Diet TF-Glucerna 1.2 [place] @ 63 ml/hr (since D 05/14). Height 6 ft 3 in Weight 79.5 kg [place] Body Weight (kg) 89.09 BMI 21.9 Weight change and time frame No body weight change reported in 20 days. Subjective/Other Information RD consult for change formula back to Glucerna 1.2 Maurice. Percent of energy/protein needs met: Prescribed Glucerna 1.2 [place] @ 63 ml/hr provides for energy/ protein needs (1,819 Kcal/91 g ) during LOS, 90% Kcal; 100% AA. #1 Nutrition Diagnosis Inadequate oral intake Diagnosis Progress(for reassessment Continues documentation) Is patient on ventilator? No Is Patient Ambulatory and/or Out of Bed No REE-([place]. Jeor-confined to bed) 2020.748 Calculation Used for Recommendations [place] [facility] Additional Notes Protein: 1-1.2 g/Kg; 80-95 g/ day. Fluids: 1 ml/Kcal, or as per MD. Nutrition Intervention Nutrition Support: Change back to Glucerna 1.2 Maurice @ 63 ml/hr. Flush: 130 ml water Q 4 hr, or as per MD. Kcal 1,819 Protein (gm) 91 Carbohydrates (gm) 174 Fat (gm) 91 Fluid (mL) 1,220 Fiber (gm) 24 % RDI: 90% Kcal; 100% AA. Goal #1 Provide at least 75% of energy /protein needs through Enteral Feeding during LOS. Goal #2 Maintain body weight within +/ -3% of admission body weight during LOS. Follow-Up By: 05/20/21 Additional Comments Continue monitoring TF tolerance and BM.
[2021-05-15 16:32] LABS: Blood Urea Nitrogen TNR mg/dL (9-20)
[2021-05-15 16:33] LABS: BUN/Creatinine Ratio TNR; Calcium TNR mg/dL (8.4-10.2); Hemolysis Index TNR
[2021-05-15 19:11] LABS: Calcium 9.4 mg/dL (8.4-10.2)
[2021-05-16] MEDS: INSULIN LISPRO 100 UNIT/ML SUB-Q SCH ×5 (01:58→17:55)
[2021-05-16] MEDS: FREE WATER PO SCH ×4 (02:24→22:04)
[2021-05-16 06:09] LABS: Calcium 9.4 mg/dL (8.4-10.2)
--- NOTE | 2021-05-16 09:19 | Ultrasound Report ---
ULTRASOUND RENAL INDICATION / CLINICAL INFORMATION: Acute kidney insufficiency. COMPARISON: None available. FINDINGS: RIGHT KIDNEY: Length = 9.3 cm. [normal > 9 cm] - Parenchymal Thickness = 1.9 cm. [normal > 1.5 cm] - Echogenicity: Increased - Hydronephrosis: None. - Cyst or mass: 1 cm simple cyst is noted near the lower pole - Stones: None seen. LEFT KIDNEY: Length = 9.2 cm. [normal > 9 cm] - Parenchymal Thickness = 1.7 cm. [normal > 1.5 cm] - Echogenicity: Increased - Hydronephrosis: None. - Cyst or mass: No significant abnormality. - Stones: None seen. URINARY BLADDER: No significant abnormality. FREE FLUID: None. ADDITIONAL FINDINGS: None. IMPRESSION: Slightly echogenic kidneys consistent with medical renal disease. 1 cm right renal cyst. No hydronep hrosis. Signer Name: Jean Guerra Jr, MD Signed: 05/16/2021 9:15 AM Workstation Name: [id number]
[2021-05-16] MEDS: LANSOPRAZOLE 30 MG SOLUTAB FEEDTUBE SCH (09:39)
[2021-05-16] MEDS: ASPIRIN EC 81 MG TAB PO SCH (09:39)
[2021-05-16] MEDS: hydrALAZINE 100 MG TAB PO SCH ×3 (09:40→22:03)
[2021-05-16] MEDS: AMIODARONE 200 MG TAB PO SCH (09:40)
[2021-05-16] MEDS: amLODIPine 10 MG TAB PO SCH (09:40)
[2021-05-16] MEDS: METOPROLOL TARTRATE 50 MG TAB PO SCH ×2 (09:40→22:03)
[2021-05-16] MEDS: FOLIC ACID 1 MG TAB PO SCH (09:41)
[2021-05-16] MEDS: APIXABAN 5 MG TAB PO SCH ×2 (09:42→22:00)
[2021-05-16] MEDS: INSULIN NPH/REGULAR 70/30 INJ SUB-Q SCH ×2 (09:44→17:54)
--- NOTE | 2021-05-16 10:50 | Progress Note ---
Assessment and Plan Impression: * Acute kidney injury secondary to prerenal azotemia due to dehydration * Hypernatremia secondary to dehydration * Acute CVA with left hemiparesis * Atrial fibrillation * HFrEF --TTE: EF 45 to 50%. Hypokinesis of basal inferior septal wall. Hypokinesis inferior wall. Right ventricle systolic function is normal. Bubble study did not demonstrate PFO (Apr 20) * DM Plan: * Na trending down. SCr improved. * Continue IVF - D5W 125ml/hour * Continue free H2O with TF * Rate control/anticoagulation per cardiology * Dose medications for renal function * Avoid potential nephrotoxins * Daily BMP Subjective Date of service: 05/16/21 Principal diagnosis: Acute CVA Objective - Vital Signs Vital signs: Vital Signs - 12hr 05/15/21 05/16/21 05/16/21 22:58 01:00 09:40 Temperature 97.5 F L Pulse Rate 53 L 80 Pulse Rate [ 62 From Monitor] Respiratory 19 16 Rate Blood Pressure 101/67 O2 Sat by Pulse 98 100 Oximetry - Lab 05/15/21 04:38 05/16/21 04:56 Most recent lab results Calcium 9.4 mg/dL (8.4-10.2) 05/16/21 04:56 Magnesium 1.90 mg/dL (1.7-2.3) 04/20/21 17:44 Medications & Allergies - Medications Allergies/Adverse Reactions: Allergies No Known Allergies Allergy (Verified 08/24/20 14:13) Home Medications: Home Medications Medication Instructions Recorded Confirmed Last Taken Type No Known Home Medications [No 04/30/21 04/30/21 Unknown History Reported Home Medications] Active Medications: Generic Name Dose Route Start Last Admin Trade Name Freq PRN Reason Stop Dose Admin Acetaminophen 650 mg 04/20/21 18:41 05/10/21 08:02 Acetaminophen 325 Mg Tab PO 650 mg Q4H PRN Administration Pain, Mild (1-3) Albuterol 2.5 mg 04/20/21 18:41 Albuterol 2.5 Mg/3 Ml Nebu IH Q3HRT PRN Shortness Of Breath Amiodarone HCl 200 mg 05/01/21 10:00 05/16/21 09:40 Amiodarone 200 Mg Tab PO 200 mg DAILY NAMAN Administration Amlodipine Besylate 10 mg 05/01/21 10:00 05/16/21 09:40 Amlodipine 10 Mg Tab PO 10 mg QDAY NAMAN Administration Lipase/Protease/Amylase 1 each 04/25/21 15:16 Lipase 10,500/Protease 25,000/Amylase 43,750 (Units) Dr Willingham FEEDTUBE PRN PRN For Clogged Feeding Tube Apixaban 5 mg 04/29/21 10:00 05/16/21 09:42 Apixaban 5 Mg Tab PO 5 mg Q12HR NAMAN Administration Protocol Aspirin 81 mg 05/13/21 10:00 05/16/21 09:39 Aspirin Ec 81 Mg Tab PO 81 mg QDAY NAMAN Administration Atorvastatin Calcium 40 mg 04/20/21 22:00 05/15/21 21:36 Atorvastatin 40 Mg Tab PO 40 mg QHS NAMAN Administration Bisacodyl 10 mg 04/20/21 18:41 Bisacodyl 10 Mg Rect Supp [place] QDAY PRN Constipation Cyclobenzaprine HCl 10 mg 04/20/21 19:00 04/24/21 12:36 Cyclobenzaprine 10 Mg Tab PO 10 mg TID PRN Administration Muscle Spasm Dextrose 0 ml 04/27/21 04:03 Dextrose 10% *Hypoglycemia IV PRN PRN Hypoglycemia Protocol Folic Acid 1 mg 04/20/21 18:59 05/16/21 09:41 Folic Acid 1 Mg Tab PO 1 mg QDAY NAMAN Administration Hydralazine HCl 10 mg 04/30/21 05:49 05/01/21 06:02 Hydralazine 20 Mg/1 Ml Inj IV 10 mg Q6HR PRN Administration Hypertension Hydralazine HCl 100 mg 05/01/21 12:00 05/16/21 09:40 Hydralazine 100 Mg Tab PO 100 mg TID NAMAN Administration Hydromorphone HCl 0.5 mg 04/20/21 18:41 05/13/21 09:33 Hydromorphone 1 Mg/1 Ml Inj IV 0.5 mg Q6H PRN Administration Pain , Severe (7-10) Dextrose 1,000 mls @ 125 mls/hr 05/15/21 10:00 05/15/21 21:42 D5w IV 125 mls/hr DIRECT NAMAN Administration Insulin Human Isoph/Insulin Regular 18 unit 05/16/21 09:00 05/16/21 09:44 Insulin Nph/Regular 70/30 Inj SUB-Q 18 unit BIDDIAB NAMAN Administration Insulin Human Lispro 0 unit 04/27/21 04:00 05/16/21 05:19 Insulin Lispro 100 Unit/Ml SUB-Q 8 unit Q6HR NAMAN Administration Protocol Lansoprazole 30 mg 04/28/21 11:00 05/16/21 09:39 Lansoprazole 30 Mg Solutab FEEDTUBE 30 mg QDAY NAMAN Administration Lorazepam 2 mg 04/20/21 18:44 04/28/21 23:41 Lorazepam 2 Mg/Ml Vial IV 2 mg Q1HR PRN Administration CIWA-Ar 8-15 Magnesium Hydroxide 30 ml 04/20/21 18:41 Magnesium Hydroxide (Mom) Oral Liqd Udc PO Q4H PRN Constipation Metoclopramide HCl 5 mg 05/15/21 09:00 Metoclopramide 10 Mg Tab PO Q6H PRN Nausea And Vomiting Metoprolol Tartrate 100 mg 04/29/21 12:00 05/16/21 09:40 Metoprolol Tartrate 50 Mg Tab PO 100 mg BID NAMAN Administration Ondansetron HCl 4 mg 04/20/21 18:41 Ondansetron 4 Mg/2 Ml Inj IV Q8H PRN Nausea And Vomiting Oxycodone/Acetaminophen 1 tab 04/20/21 18:41 04/28/21 18:05 Oxycodone /Acetaminophen 5-325mg Tab PO 1 tab Q12H PRN Administration Pain, Moderate (4-6) Promethazine HCl 25 mg 04/20/21 18:41 Promethazine 25 Mg Rect Supp [place] Q6H PRN Nausea And Vomiting Simple Syrup 15 ml 04/25/21 15:16 Simple Syrup 15 Ml FEEDTUBE PRN PRN Hypoglycemia Simple Syrup 30 ml 04/25/21 15:16 Simple Syrup 15 Ml FEEDTUBE PRN PRN Hypoglycemia Sodium Bicarbonate 325 mg 04/25/21 15:16 Sodium Bicarbonate 325 Mg Tab FEEDTUBE PRN PRN For Clogged Feeding Tube Sodium Chloride 10 ml 04/20/21 18:41 05/13/21 21:05 Sodium Chloride 0.9% 10 Ml Flush Syringe IV 10 ml PRN PRN Administration LINE FLUSH
[2021-05-16] MEDS: DEXTROSE 5% IN WATER 1,000 ML IV SCH ×2 (13:18→22:04)
--- NOTE | 2021-05-16 13:53 | Progress Note ---
Assessment and Plan Assessment and plan: 61-year-old male w/ hx of CVH with LHP, nicotine dependence, EtOH dependence who presented with worsening left-sided weakness and difficulty speaking for 2 days. Code stroke was initiated. Patient was also discovered to have new onset A. fib with RVR. Currently stable, requiring feeding tube awaiting safe discharge. Patient is uninsured and will require total care at this time. Exploring hospice, NOK will need to agree to stopping use of PEG tube. #Acute/subacute CVA #Acute metabolic encephalopathy-Multifactorial -CT with extensive microvascular changes; MRI brain showed subacute multi- infarct cerebellar and brain stem / luba -US carotid <50% stenosis -stroke likely embolic from A fib; continue eliquis and metoprolol, amiodarone for rate control -TTE showed diastolic dysfunction; normal EF and no evidence of PFO Continue aspirin and lipitor Physical therapy/Occupational Therapy recommended subacute rehab, however the patient is uninsured #Dysphagia #Dysarthria -PEG tube placed on 04/28/2021 -tube feeds at 53cc/hr, will continue; nutrition managing -meds per PEG tube -continue speech therapy #BHASKAR, vasomotor nephropathy -Improving -continue free water flushes via PEG tube -Renal ultrasound suggestive of medical renal disease -avoid nephrotoxins and renally dose medications -Nephrology consulted, assistance appreciated #Hypernatremia-improving -Na 151 -continue free water flushes -Continue D5 started at 125cc/hr #COVID-19 positive -PCR 04/27/2021 -supportive care #Type 2 diabetes mellitus -Hyperglycemia secondary to IV fluid use to treat hypernatremia -continue accuchecks and sliding scale -humulin increased to 18 units qday -continue ADA diet -goal glucose 140-180, will adjust insulin as needed #Atrial fibrillation with RVR, (new onset) -rate currently controlled -continue amiodarone, metoprolol and eliquis #Moderate protein calorie malnutrition -albumin 3.2 -nutrition consult, continue TF #Advanced care planning #Discharge planning -Legal next of kin Daughter Soniya Mabry ([phone]) still has not made a decision regarding PEG tube. Discussed with CM about contacting Adult Protective Services and starting the process for Guardianship for the patient. Family has contacted [facility] to evaluate the patient for inpatient hospice. History Interval history: No acute events overnight. Patient sleep today. Does not respond to commands. Hospitalist Physical - Physical exam Narrative exam: GENERAL: Well-developed well-nourished. In no acute distress. HEENT: Dry mucous membranes. CHEST/LUNGS: CTAB on room air HEART/CARDIOVASCULAR: RRR. No murmur, rubs or gallops appreciated. ABDOMEN: + PEG tube. +BS. NT/ND. NEURO: Unable to assess. EXTREMITIES: No cyanosis, clubbing or edema. PSYCH: Unable to assess. - Constitutional Vitals: Temp Pulse Resp BP Pulse Ox 97.5 F L 80 16 101/67 100 05/15/21 22:58 05/16/21 09:40 05/16/21 01:00 05/15/21 22:58 05/16/21 01:00 General appearance: Present: no acute distress, well-nourished, other (Dysarthria, confused) HEART Score - HEART Score Troponin: Troponin T 0.011 ng/mL (0.00-0.029) 04/20/21 17:44 Results - Labs CBC & Chem 7: 05/15/21 04:38 05/16/21 04:56 Labs: Laboratory Last Values WBC 11.2 K/mm3 (4.5-11.0) H 05/15/21 04:38 RBC 5.54 M/mm3 (3.65-5.03) H 05/15/21 04:38 Hgb 15.4 gm/dl (11.8-15.2) H 05/15/21 04:38 Hct 49.4 % (35.5-45.6) H 05/15/21 04:38 MCV 89 fl (84-94) 05/15/21 04:38 MCH 28 pg (28-32) 05/15/21 04:38 MCHC 31 % (32-34) L 05/15/21 04:38 RDW 13.8 % (13.2-15.2) 05/15/21 04:38 Plt Count 267 K/mm3 (140-440) 05/15/21 04:38 Lymph % (Auto) 11.5 % (13.4-35.0) L 05/04/21 05:54 [place] % (Auto) 12.8 % (0.0-7.3) H 05/04/21 05:54 Eos % (Auto) 2.2 % (0.0-4.3) 05/04/21 05:54 Baso % (Auto) 0.6 % (0.0-1.8) 05/04/21 05:54 Lymph # (Auto) 1.3 K/mm3 (1.2-5.4) 05/04/21 05:54 [place] # (Auto) 1.5 K/mm3 (0.0-0.8) H 05/04/21 05:54 Eos # (Auto) 0.3 K/mm3 (0.0-0.4) 05/04/21 05:54 Baso # (Auto) 0.1 K/mm3 (0.0-0.1) 05/04/21 05:54 Seg Neutrophils % 72.9 % (40.0-70.0) H 05/04/21 05:54 Seg Neutrophils # 8.5 K/mm3 (1.8-7.7) H 05/04/21 05:54 PT 14.1 Sec. (12.2-14.9) 04/28/21 13:53 INR 0.98 (0.87-1.13) 04/28/21 13:53 APTT 31.8 Sec. (24.2-36.6) 04/28/21 13:53 Thrombin Time 16.2 Sec. (15.1-19.6) 04/20/21 17:44 D-Dimer 894.94 ng/mlDDU (0-234) H 04/28/21 09:29 Sodium 157 mmol/L (137-145) H 05/16/21 04:56 Potassium 3.9 mmol/L (3.6-5.0) 05/16/21 04:56 Chloride 122.3 mmol/L (98-107) H 05/16/21 04:56 Carbon Dioxide 21 mmol/L (22-30) L 05/16/21 04:56 Anion Gap 18 mmol/L 05/16/21 04:56 BUN 75 mg/dL (9-20) H 05/16/21 04:56 Creatinine 2.4 mg/dL (0.8-1.3) H 05/16/21 04:56 Estimated GFR 33 ml/min 05/16/21 04:56 BUN/Creatinine Ratio 31 % 02/18/22 04:56 Glucose 431 mg/dL (75-100) H 05/16/21 04:56 POC Glucose 149 mg/dL (70-105) H 05/16/21 11:40 Calcium 9.4 mg/dL (8.4-10.2) 05/16/21 04:56 Magnesium 1.90 mg/dL (1.7-2.3) 04/20/21 17:44 Ferritin 1157.0 ng/mL (30.0-300.0) H 04/28/21 09:29 Total Bilirubin 0.20 mg/dL (0.1-1.2) 05/06/21 05:32 AST 25 units/L (5-40) 05/06/21 05:32 ALT 64 units/L (7-56) H 05/06/21 05:32 Alkaline Phosphatase 168 units/L (35-129) H 05/06/21 05:32 Lactate Dehydrogenase 287 units/L (91-180) H 04/28/21 09:29 Total Creatine Kinase 79 units/L (55-170) 04/20/21 17:44 Total Creatine Kinase 81 units/L (55-170) 04/20/21 17:44 CK-MB (CK-2) 2.1 ng/mL (0.0-4.0) 04/20/21 17:44 CK-MB (CK-2) Rel Index 2.6 (0-4) 04/20/21 17:44 Troponin T 0.011 ng/mL (0.00-0.029) 04/20/21 17:44 C-Reactive Protein 15.40 mg/dL (0.00-1.30) H 04/28/21 09:29 Total Protein 7.4 g/dL (6.3-8.2) 05/06/21 05:32 Albumin 3.2 g/dL (3.9-5) L 05/06/21 05:32 Albumin/Globulin Ratio 0.8 % 05/06/21 05:32 TSH 1.040 mlU/mL (0.270-4.200) 04/20/21 19:42 Free T4 1.16 ng/dL (0.76-1.46) 04/20/21 19:42 Urine Color Saira (Yellow) 04/26/21 Unknown Urine Turbidity Cloudy (Clear) 04/26/21 Unknown Urine pH 5.0 (5.0-7.0) 04/26/21 Unknown Ur Specific [place] 1.020 (1.003-1.030) 04/26/21 Unknown Urine Protein 100 mg/dl mg/dL (Negative) 04/26/21 Unknown Urine Glucose (UA) >=500 mg/dL (Negative) 04/26/21 Unknown Urine Ketones Neg mg/dL (Negative) 04/26/21 Unknown Urine Blood Mod (Negative) 04/26/21 Unknown Urine Nitrite Neg (Negative) 04/26/21 Unknown Urine Bilirubin Neg (Negative) 04/26/21 Unknown Urine Urobilinogen 2.0 mg/dL (<2.0) 04/26/21 Unknown Ur Leukocyte Esterase Neg (Negative) 04/26/21 Unknown Urine WBC (Auto) 1.0 /HPF (0.0-6.0) 04/20/21 18:19 Urine RBC (Auto) 3.0 /HPF (0.0-6.0) 04/20/21 18:19 U Epithel Cells (Auto) < 1.0 /HPF (0-13.0) 04/20/21 18:19 Hyaline Casts 5 /LPF 04/20/21 18:19 Urine Mucus Few /HPF 04/20/21 18:19 Plasma/Serum Alcohol < 0.01 % (0-0.07) 04/20/21 17:44 Coronavirus (PCR) Negative (Negative) 05/09/21 09:20 Bravo/IV: Voiding Method Condom Catheter Active Medications - Current Medications Current Medications: Generic Name Dose Route Start Last Admin Trade Name Freq PRN Reason Stop Dose Admin Acetaminophen 650 mg 04/20/21 18:41 05/10/21 08:02 Acetaminophen 325 Mg Tab PO 650 mg Q4H PRN Administration Pain, Mild (1-3) Albuterol 2.5 mg 04/20/21 18:41 Albuterol 2.5 Mg/3 Ml Nebu IH Q3HRT PRN Shortness Of Breath Amiodarone HCl 200 mg 05/01/21 10:00 05/16/21 09:40 Amiodarone 200 Mg Tab PO 200 mg DAILY NAMAN Administration Amlodipine Besylate 10 mg 05/01/21 10:00 05/16/21 09:40 Amlodipine 10 Mg Tab PO 10 mg QDAY NAMAN Administration Lipase/Protease/Amylase 1 each 04/25/21 15:16 Lipase 10,500/Protease 25,000/Amylase 43,750 (Units) Dr Willingham FEEDTUBE PRN PRN For Clogged Feeding Tube Apixaban 5 mg 04/29/21 10:00 05/16/21 09:42 Apixaban 5 Mg Tab PO 5 mg Q12HR NAMAN Administration Protocol Aspirin 81 mg 05/13/21 10:00 05/16/21 09:39 Aspirin Ec 81 Mg Tab PO 81 mg QDAY NAMAN Administration Atorvastatin Calcium 40 mg 04/20/21 22:00 05/15/21 21:36 Atorvastatin 40 Mg Tab PO 40 mg QHS NAMAN Administration Bisacodyl 10 mg 04/20/21 18:41 Bisacodyl 10 Mg Rect Supp [place] QDAY PRN Constipation Cyclobenzaprine HCl 10 mg 04/20/21 19:00 04/24/21 12:36 Cyclobenzaprine 10 Mg Tab PO 10 mg TID PRN Administration Muscle Spasm Dextrose 0 ml 04/27/21 04:03 Dextrose 10% *Hypoglycemia IV PRN PRN Hypoglycemia Protocol Folic Acid 1 mg 04/20/21 18:59 05/16/21 09:41 Folic Acid 1 Mg Tab PO 1 mg QDAY NAMAN Administration Hydralazine HCl 10 mg 04/30/21 05:49 05/01/21 06:02 Hydralazine 20 Mg/1 Ml Inj IV 10 mg Q6HR PRN Administration Hypertension Hydralazine HCl 100 mg 05/01/21 12:00 05/16/21 13:17 Hydralazine 100 Mg Tab PO 100 mg TID NAMAN Administration Hydromorphone HCl 0.5 mg 04/20/21 18:41 05/13/21 09:33 Hydromorphone 1 Mg/1 Ml Inj IV 0.5 mg Q6H PRN Administration Pain , Severe (7-10) Dextrose 1,000 mls @ 125 mls/hr 05/15/21 10:00 05/16/21 13:18 D5w IV 125 mls/hr DIRECT NAMAN Administration Insulin Human Isoph/Insulin Regular 18 unit 05/16/21 09:00 05/16/21 09:44 Insulin Nph/Regular 70/30 Inj SUB-Q 18 unit BIDDIAB NAMAN Administration Insulin Human Lispro 0 unit 04/27/21 04:00 05/16/21 13:16 Insulin Lispro 100 Unit/Ml SUB-Q Not Given Q6HR [facility] Protocol Lansoprazole 30 mg 04/28/21 11:00 05/16/21 09:39 Lansoprazole 30 Mg Solutab FEEDTUBE 30 mg QDAY NAMAN Administration Lorazepam 2 mg 04/20/21 18:44 04/28/21 23:41 Lorazepam 2 Mg/Ml Vial IV 2 mg Q1HR PRN Administration CIWA-Ar 8-15 Magnesium Hydroxide 30 ml 04/20/21 18:41 Magnesium Hydroxide (Mom) Oral Liqd Udc PO Q4H PRN Constipation Metoclopramide HCl 5 mg 05/15/21 09:00 Metoclopramide 10 Mg Tab PO Q6H PRN Nausea And Vomiting Metoprolol Tartrate 100 mg 04/29/21 12:00 05/16/21 09:40 Metoprolol Tartrate 50 Mg Tab PO 100 mg BID NAMAN Administration Ondansetron HCl 4 mg 04/20/21 18:41 Ondansetron 4 Mg/2 Ml Inj IV Q8H PRN Nausea And Vomiting Oxycodone/Acetaminophen 1 tab 04/20/21 18:41 04/28/21 18:05 Oxycodone /Acetaminophen 5-325mg Tab PO 1 tab Q12H PRN Administration Pain, Moderate (4-6) Promethazine HCl 25 mg 04/20/21 18:41 Promethazine 25 Mg Rect Supp [place] Q6H PRN Nausea And Vomiting Simple Syrup 15 ml 04/25/21 15:16 Simple Syrup 15 Ml FEEDTUBE PRN PRN Hypoglycemia Simple Syrup 30 ml 04/25/21 15:16 Simple Syrup 15 Ml FEEDTUBE PRN PRN Hypoglycemia Sodium Bicarbonate 325 mg 04/25/21 15:16 Sodium Bicarbonate 325 Mg Tab FEEDTUBE PRN PRN For Clogged Feeding Tube Sodium Chloride 10 ml 04/20/21 18:41 05/13/21 21:05 Sodium Chloride 0.9% 10 Ml Flush Syringe IV 10 ml PRN PRN Administration LINE FLUSH Nutrition/Malnutrition Assess - Dietary Evaluation Nutrition/Malnutrition Findings: Nutrition Notes Start: 04/23/21 12:36 Freq: Status: Active Protocol: Document 05/14/21 12:46 ANNIKA (Rec: 05/14/21 12:55 ANNIKA [id number]) Nutrition Notes Initial or Follow up Brief Note Current Diet TF-Glucerna 1.2 [place] @ 63 ml/hr (since D 05/14). Height 6 ft 3 in Weight 79.5 kg [place] Body Weight (kg) 89.09 BMI 21.9 Weight change and time frame No body weight change reported in 20 days. Subjective/Other Information RD consult for change formula back to Glucerna 1.2 [place]. Percent of energy/protein needs met: Prescribed Glucerna 1.2 [place] @ 63 ml/hr provides for energy/ protein needs (1,819 Kcal/91 g ) during LOS, 90% Kcal; 100% AA. #1 Nutrition Diagnosis Inadequate oral intake Diagnosis Progress(for reassessment Continues documentation) Is patient on ventilator? No Is Patient Ambulatory and/or Out of Bed No REE-([place]. Jeor-confined to bed) 2020.748 Calculation Used for Recommendations [place] Additional Notes Protein: 1-1.2 g/Kg; 80-95 g/ day. Fluids: 1 ml/Kcal, or as per MD. Nutrition Intervention Nutrition Support: Change back to Glucerna 1.2 [place] @ 63 ml/hr. Flush: 130 ml water Q 4 hr, or as per MD. Kcal 1,819 Protein (gm) 91 Carbohydrates (gm) 174 Fat (gm) 91 Fluid (mL) 1,220 Fiber (gm) 24 % RDI: 90% Kcal; 100% AA. Goal #1 Provide at least 75% of energy /protein needs through Enteral Feeding during LOS. Goal #2 Maintain body weight within +/ -3% of admission body weight during LOS. Follow-Up By: 05/20/21 Additional Comments Continue monitoring TF tolerance and BM.
[2021-05-17] MEDS: INSULIN LISPRO 100 UNIT/ML SUB-Q SCH ×4 (00:12→20:32)
[2021-05-17] MEDS: FREE WATER PO SCH ×3 (02:36→21:01)
[2021-05-17] MEDS: DEXTROSE 5% IN WATER 1,000 ML IV SCH ×2 (05:57→15:12)
[2021-05-17 06:31] LABS: Calcium 9.1 mg/dL (8.4-10.2)
--- NOTE | 2021-05-17 07:38 | Progress Note ---
Assessment and Plan Assessment and plan: 61-year-old male w/ hx of CVH with LHP, nicotine dependence, EtOH dependence who presented with worsening left-sided weakness and difficulty speaking for 2 days. Code stroke was initiated. Patient was also discovered to have new onset A. fib with RVR. Currently stable, requiring feeding tube awaiting safe discharge. Patient is uninsured and will require total care at this time. Exploring hospice, NOK will need to agree to stopping use of PEG tube. #Acute/subacute CVA #Acute metabolic encephalopathy-Multifactorial -CT with extensive microvascular changes; MRI brain showed subacute multi- infarct cerebellar and brain stem / luba -US carotid <50% stenosis -stroke likely embolic from A fib; continue eliquis and metoprolol, amiodarone for rate control -TTE showed diastolic dysfunction; normal EF and no evidence of PFO Continue aspirin and lipitor Physical therapy/Occupational Therapy recommended subacute rehab, however the patient is uninsured #Dysphagia #Dysarthria -PEG tube placed on 04/28/2021 -tube feeds at 53cc/hr, will continue; nutrition managing -meds per PEG tube -continue speech therapy #BHASKAR, vasomotor nephropathy -Improving -continue free water flushes via PEG tube -Renal ultrasound suggestive of medical renal disease -avoid nephrotoxins and renally dose medications -Nephrology consulted, assistance appreciated #Hypernatremia-improving -continue free water flushes -Continue D5 125cc/hr #COVID-19 positive -PCR 04/27/2021 -supportive care #Type 2 diabetes mellitus -Hyperglycemia secondary to IV fluid use to treat hypernatremia -continue accuchecks and sliding scale -humulin increased to 20 units qday -continue ADA diet -goal glucose 140-180, will adjust insulin as needed #Atrial fibrillation with RVR, (new onset) -rate currently controlled -continue amiodarone, metoprolol and eliquis #Moderate protein calorie malnutrition -albumin 3.2 -nutrition consult, continue TF #Advanced care planning #Discharge planning -Legal next of kin Daughter Soniya Mabry ([phone]) still has not made a decision regarding PEG tube. Discussed with CM about contacting Adult Protective Services and starting the process for Guardianship for the patient. Family has contacted [facility] to evaluate the patient for inpatient hospice. History Interval history: No acute events overnight. Patient more responsive to auditory stimuli. Still not following commands. Hospitalist Physical - Physical exam Narrative exam: GENERAL: Well-developed well-nourished. In no acute distress. HEENT: Dry mucous membranes. CHEST/LUNGS: CTAB on room air HEART/CARDIOVASCULAR: RRR. No murmur, rubs or gallops appreciated. ABDOMEN: + PEG tube. +BS. NT/ND. NEURO: Unable to assess. EXTREMITIES: No cyanosis, clubbing or edema. PSYCH: Unable to assess. - Constitutional Vitals: Temp Pulse Resp BP Pulse Ox 97.5 F L 62 16 128/81 100 05/15/21 22:58 05/17/21 01:00 05/17/21 01:00 05/16/21 22:03 05/17/21 01:00 General appearance: Present: no acute distress, well-nourished, other (Dysarthria, confused) HEART Score - HEART Score Troponin: Troponin T 0.011 ng/mL (0.00-0.029) 04/20/21 17:44 Results - Labs CBC & Chem 7: 05/15/21 04:38 05/17/21 05:41 Labs: Laboratory Last Values WBC 11.2 K/mm3 (4.5-11.0) H 05/15/21 04:38 RBC 5.54 M/mm3 (3.65-5.03) H 05/15/21 04:38 Hgb 15.4 gm/dl (11.8-15.2) H 05/15/21 04:38 Hct 49.4 % (35.5-45.6) H 05/15/21 04:38 MCV 89 fl (84-94) 05/15/21 04:38 MCH 28 pg (28-32) 05/15/21 04:38 MCHC 31 % (32-34) L 05/15/21 04:38 RDW 13.8 % (13.2-15.2) 05/15/21 04:38 Plt Count 267 K/mm3 (140-440) 05/15/21 04:38 Lymph % (Auto) 11.5 % (13.4-35.0) L 05/04/21 05:54 [place] % (Auto) 12.8 % (0.0-7.3) H 05/04/21 05:54 Eos % (Auto) 2.2 % (0.0-4.3) 05/04/21 05:54 Baso % (Auto) 0.6 % (0.0-1.8) 05/04/21 05:54 Lymph # (Auto) 1.3 K/mm3 (1.2-5.4) 05/04/21 05:54 [place] # (Auto) 1.5 K/mm3 (0.0-0.8) H 05/04/21 05:54 Eos # (Auto) 0.3 K/mm3 (0.0-0.4) 05/04/21 05:54 Baso # (Auto) 0.1 K/mm3 (0.0-0.1) 05/04/21 05:54 Seg Neutrophils % 72.9 % (40.0-70.0) H 05/04/21 05:54 Seg Neutrophils # 8.5 K/mm3 (1.8-7.7) H 05/04/21 05:54 PT 14.1 Sec. (12.2-14.9) 04/28/21 13:53 INR 0.98 (0.87-1.13) 04/28/21 13:53 APTT 31.8 Sec. (24.2-36.6) 04/28/21 13:53 Thrombin Time 16.2 Sec. (15.1-19.6) 04/20/21 17:44 D-Dimer 894.94 ng/mlDDU (0-234) H 04/28/21 09:29 Sodium 158 mmol/L (137-145) H 05/17/21 05:41 Potassium 4.0 mmol/L (3.6-5.0) 05/17/21 05:41 Chloride 124.6 mmol/L (98-107) H 05/17/21 05:41 Carbon Dioxide 22 mmol/L (22-30) 05/17/21 05:41 Anion Gap 15 mmol/L 05/17/21 05:41 BUN 64 mg/dL (9-20) H 05/17/21 05:41 Creatinine 2.0 mg/dL (0.8-1.3) H 05/17/21 05:41 Estimated GFR 41 ml/min 05/17/21 05:41 BUN/Creatinine Ratio 32 % 05/17/21 05:41 Glucose 370 mg/dL (75-100) H 05/17/21 05:41 POC Glucose 310 mg/dL (70-105) H 05/17/21 05:51 Calcium 9.1 mg/dL (8.4-10.2) 05/17/21 05:41 Magnesium 1.90 mg/dL (1.7-2.3) 04/20/21 17:44 Ferritin 1157.0 ng/mL (30.0-300.0) H 04/28/21 09:29 Total Bilirubin 0.20 mg/dL (0.1-1.2) 05/06/21 05:32 AST 25 units/L (5-40) 05/06/21 05:32 ALT 64 units/L (7-56) H 05/06/21 05:32 Alkaline Phosphatase 168 units/L (35-129) H 05/06/21 05:32 Lactate Dehydrogenase 287 units/L (91-180) H 04/28/21 09:29 Total Creatine Kinase 79 units/L (55-170) 04/20/21 17:44 Total Creatine Kinase 81 units/L (55-170) 04/20/21 17:44 CK-MB (CK-2) 2.1 ng/mL (0.0-4.0) 04/20/21 17:44 CK-MB (CK-2) Rel Index 2.6 (0-4) 04/20/21 17:44 Troponin T 0.011 ng/mL (0.00-0.029) 04/20/21 17:44 C-Reactive Protein 15.40 mg/dL (0.00-1.30) H 04/28/21 09:29 Total Protein 7.4 g/dL (6.3-8.2) 05/06/21 05:32 Albumin 3.2 g/dL (3.9-5) L 05/06/21 05:32 Albumin/Globulin Ratio 0.8 % 05/06/21 05:32 TSH 1.040 mlU/mL (0.270-4.200) 04/20/21 19:42 Free T4 1.16 ng/dL (0.76-1.46) 04/20/21 19:42 Urine Color [place]air[place] (Yellow) 04/26/21 Unknown Urine Turbidity Cloudy (Clear) 04/26/21 Unknown Urine pH 5.0 (5.0-7.0) 04/26/21 Unknown Ur Specific [place] 1.020 (1.003-1.030) 04/26/21 Unknown Urine Protein 100 mg/dl mg/dL (Negative) 04/26/21 Unknown Urine Glucose (UA) >=500 mg/dL (Negative) 04/26/21 Unknown Urine Ketones Neg mg/dL (Negative) 04/26/21 Unknown Urine Blood Mod (Negative) 04/26/21 Unknown Urine Nitrite Neg (Negative) 04/26/21 Unknown Urine Bilirubin Neg (Negative) 04/26/21 Unknown Urine Urobilinogen 2.0 mg/dL (<2.0) 04/26/21 Unknown Ur Leukocyte Esterase Neg (Negative) 04/26/21 Unknown Urine WBC (Auto) 1.0 /HPF (0.0-6.0) 04/20/21 18:19 Urine RBC (Auto) 3.0 /HPF (0.0-6.0) 04/20/21 18:19 U Epithel Cells (Auto) < 1.0 /HPF (0-13.0) 04/20/21 18:19 Hyaline Casts 5 /LPF 04/20/21 18:19 Urine Mucus Few /HPF 04/20/21 18:19 Plasma/Serum Alcohol < 0.01 % (0-0.07) 04/20/21 17:44 Coronavirus (PCR) Negative (Negative) 05/09/21 09:20 Bravo/IV: Voiding Method Condom Catheter Active Medications - Current Medications Current Medications: Generic Name Dose Route Start Last Admin Trade Name Freq PRN Reason Stop Dose Admin Acetaminophen 650 mg 04/20/21 18:41 05/10/21 08:02 Acetaminophen 325 Mg Tab PO 650 mg Q4H PRN Administration Pain, Mild (1-3) Albuterol 2.5 mg 04/20/21 18:41 Albuterol 2.5 Mg/3 Ml Nebu IH Q3HRT PRN Shortness Of Breath Amiodarone HCl 200 mg 05/01/21 10:00 05/16/21 09:40 Amiodarone 200 Mg Tab PO 200 mg DAILY NAMAN Administration Amlodipine Besylate 10 mg 05/01/21 10:00 02/18/22 09:40 Amlodipine 10 Mg Tab PO 10 mg QDAY NAMAN Administration Lipase/Protease/Amylase 1 each 04/25/21 15:16 Lipase 10,500/Protease 25,000/Amylase 43,750 (Units) Dr Willingham FEEDTUBE PRN PRN For Clogged Feeding Tube Apixaban 5 mg 04/29/21 10:00 05/16/21 22:00 Apixaban 5 Mg Tab PO 5 mg Q12HR NAMAN Administration Protocol Aspirin 81 mg 05/13/21 10:00 05/16/21 09:39 Aspirin Ec 81 Mg Tab PO 81 mg QDAY NAMAN Administration Atorvastatin Calcium 40 mg 04/20/21 22:00 05/16/21 22:00 Atorvastatin 40 Mg Tab PO 40 mg QHS NAMAN Administration Bisacodyl 10 mg 04/20/21 18:41 Bisacodyl 10 Mg Rect Supp [place] QDAY PRN Constipation Cyclobenzaprine HCl 10 mg 04/20/21 19:00 04/24/21 12:36 Cyclobenzaprine 10 Mg Tab PO 10 mg TID PRN Administration Muscle Spasm Dextrose 0 ml 04/27/21 04:03 Dextrose 10% *Hypoglycemia IV PRN PRN Hypoglycemia Protocol Folic Acid 1 mg 04/20/21 18:59 05/16/21 09:41 Folic Acid 1 Mg Tab PO 1 mg QDAY NAMAN Administration Hydralazine HCl 10 mg 04/30/21 05:49 05/01/21 06:02 Hydralazine 20 Mg/1 Ml Inj IV 10 mg Q6HR PRN Administration Hypertension Hydralazine HCl 100 mg 05/01/21 12:00 05/16/21 22:03 Hydralazine 100 Mg Tab PO 100 mg TID NAMAN Administration Hydromorphone HCl 0.5 mg 04/20/21 18:41 05/13/21 09:33 Hydromorphone 1 Mg/1 Ml Inj IV 0.5 mg Q6H PRN Administration Pain , Severe (7-10) Dextrose 1,000 mls @ 125 mls/hr 05/15/21 10:00 05/17/21 05:57 D5w IV 125 mls/hr DIRECT NAMAN Administration Insulin Human Lispro 0 unit 04/27/21 04:00 05/17/21 05:55 Insulin Lispro 100 Unit/Ml SUB-Q 6 unit Q6HR NAMAN Administration Protocol Lansoprazole 30 mg 04/28/21 11:00 05/16/21 09:39 Lansoprazole 30 Mg Solutab FEEDTUBE 30 mg QDAY NAMAN Administration Lorazepam 2 mg 04/20/21 18:44 04/28/21 23:41 Lorazepam 2 Mg/Ml Vial IV 2 mg Q1HR PRN Administration CIWA-Ar 8-15 Magnesium Hydroxide 30 ml 04/20/21 18:41 Magnesium Hydroxide (Mom) Oral Liqd Udc PO Q4H PRN Constipation Metoclopramide HCl 5 mg 05/15/21 09:00 Metoclopramide 10 Mg Tab PO Q6H PRN Nausea And Vomiting Metoprolol Tartrate 100 mg 04/29/21 12:00 05/16/21 22:03 Metoprolol Tartrate 50 Mg Tab PO 100 mg BID NAMAN Administration Ondansetron HCl 4 mg 04/20/21 18:41 Ondansetron 4 Mg/2 Ml Inj IV Q8H PRN Nausea And Vomiting Oxycodone/Acetaminophen 1 tab 04/20/21 18:41 04/28/21 18:05 Oxycodone /Acetaminophen 5-325mg Tab PO 1 tab Q12H PRN Administration Pain, Moderate (4-6) Promethazine HCl 25 mg 04/20/21 18:41 Promethazine 25 Mg Rect Supp [place] Q6H PRN Nausea And Vomiting Simple Syrup 15 ml 04/25/21 15:16 Simple Syrup 15 Ml FEEDTUBE PRN PRN Hypoglycemia Simple Syrup 30 ml 04/25/21 15:16 Simple Syrup 15 Ml FEEDTUBE PRN PRN Hypoglycemia Sodium Bicarbonate 325 mg 04/25/21 15:16 Sodium Bicarbonate 325 Mg Tab FEEDTUBE PRN PRN For Clogged Feeding Tube Sodium Chloride 10 ml 04/20/21 18:41 05/13/21 21:05 Sodium Chloride 0.9% 10 Ml Flush Syringe IV 10 ml PRN PRN Administration LINE FLUSH Nutrition/Malnutrition Assess - Dietary Evaluation Nutrition/Malnutrition Findings: Nutrition Notes Start: 04/23/21 12:36 Freq: Status: Active Protocol: Document 05/14/21 12:46 ANNIKA (Rec: 05/14/21 12:55 ANNIKA [id number]) Nutrition Notes Initial or Follow up Brief Note Current Diet TF-Glucerna 1.2 Maurice @ 63 ml/hr (since D 05/14). Height 6 ft 3 in Weight 79.5 kg [place] Body Weight (kg) 89.09 BMI 21.9 Weight change and time frame No body weight change reported in 20 days. Subjective/Other Information RD consult for change formula back to Glucerna 1.2 Maurice. Percent of energy/protein needs met: Prescribed Glucerna 1.2 Maurice @ 63 ml/hr provides for energy/ protein needs (1,819 Kcal/91 g ) during LOS, 90% Kcal; 100% AA. #1 Nutrition Diagnosis Inadequate oral intake Diagnosis Progress(for reassessment Continues documentation) Is patient on ventilator? No Is Patient Ambulatory and/or Out of Bed No REE-([facility]-confined to bed) [phone] Calculation Used for Recommendations [facility] Additional Notes Protein: 1-1.2 g/Kg; 80-95 g/ day. Fluids: 1 ml/Kcal, or as per MD. Nutrition Intervention Nutrition Support: Change back to Glucerna 1.2 Maurice @ 63 ml/hr. Flush: 130 ml water Q 4 hr, or as per MD. Kcal 1,819 Protein (gm) 91 Carbohydrates (gm) 174 Fat (gm) 91 Fluid (mL) 1,220 Fiber (gm) 24 % RDI: 90% Kcal; 100% AA. Goal #1 Provide at least 75% of energy /protein needs through Enteral Feeding during LOS. Goal #2 Maintain body weight within +/ -3% of admission body weight during LOS. Follow-Up By: 05/20/21 Additional Comments Continue monitoring TF tolerance and BM.
[2021-05-17] MEDS: hydrALAZINE 100 MG TAB PO SCH ×3 (09:18→20:59)
[2021-05-17] MEDS: ASPIRIN EC 81 MG TAB PO SCH (09:21)
[2021-05-17] MEDS: AMIODARONE 200 MG TAB PO SCH (09:21)
[2021-05-17] MEDS: APIXABAN 5 MG TAB PO SCH ×2 (09:21→21:00)
[2021-05-17] MEDS: LANSOPRAZOLE 30 MG SOLUTAB FEEDTUBE SCH (09:21)
[2021-05-17] MEDS: METOPROLOL TARTRATE 50 MG TAB PO SCH ×2 (09:21→21:00)
[2021-05-17] MEDS: amLODIPine 10 MG TAB PO SCH (09:22)
[2021-05-17] MEDS: FOLIC ACID 1 MG TAB PO SCH (09:22)
[2021-05-17] MEDS: INSULIN NPH/REGULAR 70/30 INJ SUB-Q SCH ×2 (10:15→20:27)
--- NOTE | 2021-05-17 15:53 | Progress Note ---
Assessment and Plan Impression: * Acute kidney injury secondary to prerenal azotemia due to dehydration * Hypernatremia secondary to dehydration * Acute CVA with left hemiparesis * Atrial fibrillation * HFrEF --TTE: EF 45 to 50%. Hypokinesis of basal inferior septal wall. Hypokinesis inferior wall. Right ventricle systolic function is normal. Bubble study did not demonstrate PFO (Apr 20) * DM Plan: * Na trending down. SCr improved. * Continue IVF - D5W 125ml/hour * Continue free H2O with TF * Glycemic control per primary team * Rate control/anticoagulation per cardiology * Dose medications for renal function * Avoid potential nephrotoxins * Daily BMP Subjective Date of service: 05/17/21 Principal diagnosis: Acute CVA Interval history: No acute events overnight Objective - Vital Signs Vital signs: Vital Signs - 12hr 05/17/21 05/17/21 09:21 09:22 Pulse Rate 63 63 Blood Pressure 101/63 101/63 - General Appearance General appearance: well-developed, well-nourished EENT: ATNC Respiratory: Present: Clear to Ascultation Cardiology: regular, S1S2 Gastrointestinal: normal, no tenderness, no distended Integumentary: warm and dry Neurologic: other (nonverbal) Psychiatric: cooperative - Lab 05/15/21 04:38 05/17/21 05:41 Most recent lab results Calcium 9.1 mg/dL (8.4-10.2) 05/17/21 05:41 Magnesium 1.90 mg/dL (1.7-2.3) 04/20/21 17:44 Medications & Allergies - Medications Allergies/Adverse Reactions: Allergies No Known Allergies Allergy (Verified 08/24/20 14:13) Home Medications: Home Medications Medication Instructions Recorded Confirmed Last Taken Type No Known Home Medications [No 04/30/21 04/30/21 Unknown History Reported Home Medications] Active Medications: Generic Name Dose Route Start Last Admin Trade Name Freq PRN Reason Stop Dose Admin Acetaminophen 650 mg 04/20/21 18:41 05/10/21 08:02 Acetaminophen 325 Mg Tab PO 650 mg Q4H PRN Administration Pain, Mild (1-3) Albuterol 2.5 mg 04/20/21 18:41 Albuterol 2.5 Mg/3 Ml Nebu IH Q3HRT PRN Shortness Of Breath Amiodarone HCl 200 mg 05/01/21 10:00 05/17/21 09:21 Amiodarone 200 Mg Tab PO 200 mg DAILY NAMAN Administration Amlodipine Besylate 10 mg 05/01/21 10:00 05/17/21 09:22 Amlodipine 10 Mg Tab PO 10 mg QDAY NAMAN Administration Lipase/Protease/Amylase 1 each 04/25/21 15:16 Lipase 10,500/Protease 25,000/Amylase 43,750 (Units) Dr Willingham FEEDTUBE PRN PRN For Clogged Feeding Tube Apixaban 5 mg 04/29/21 10:00 05/17/21 09:21 Apixaban 5 Mg Tab PO 5 mg Q12HR NAMAN Administration Protocol Aspirin 81 mg 05/13/21 10:00 05/17/21 09:21 Aspirin Ec 81 Mg Tab PO 81 mg QDAY NAMAN Administration Atorvastatin Calcium 40 mg 04/20/21 22:00 05/16/21 22:00 Atorvastatin 40 Mg Tab PO 40 mg QHS NAMAN Administration Bisacodyl 10 mg 04/20/21 18:41 Bisacodyl 10 Mg Rect Supp ID QDAY PRN Constipation Cyclobenzaprine HCl 10 mg 04/20/21 19:00 04/24/21 12:36 Cyclobenzaprine 10 Mg Tab PO 10 mg TID PRN Administration Muscle Spasm Dextrose 0 ml 04/27/21 04:03 Dextrose 10% *Hypoglycemia IV PRN PRN Hypoglycemia Protocol Folic Acid 1 mg 04/20/21 18:59 05/17/21 09:22 Folic Acid 1 Mg Tab PO 1 mg QDAY NAMAN Administration Hydralazine HCl 10 mg 04/30/21 05:49 05/01/21 06:02 Hydralazine 20 Mg/1 Ml Inj IV 10 mg Q6HR PRN Administration Hypertension Hydralazine HCl 100 mg 05/01/21 12:00 05/17/21 15:12 Hydralazine 100 Mg Tab PO 100 mg TID NAMAN Administration Hydromorphone HCl 0.5 mg 04/20/21 18:41 05/13/21 09:33 Hydromorphone 1 Mg/1 Ml Inj IV 0.5 mg Q6H PRN Administration Pain , Severe (7-10) Dextrose 1,000 mls @ 125 mls/hr 05/15/21 10:00 05/17/21 15:12 D5w IV 125 mls/hr DIRECT NAMAN Administration Insulin Human Isoph/Insulin Regular 20 unit 05/17/21 08:00 05/17/21 10:15 Insulin Nph/Regular 70/30 Inj SUB-Q 20 unit BIDDIAB NAMAN Administration Insulin Human Lispro 0 unit 04/27/21 04:00 05/17/21 05:55 Insulin Lispro 100 Unit/Ml SUB-Q 6 unit Q6HR NAMAN Administration Protocol Lansoprazole 30 mg 04/28/21 11:00 05/17/21 09:21 Lansoprazole 30 Mg Solutab FEEDTUBE 30 mg QDAY NAMAN Administration Lorazepam 2 mg 04/20/21 18:44 04/28/21 23:41 Lorazepam 2 Mg/Ml Vial IV 2 mg Q1HR PRN Administration Ana 8-15 Magnesium Hydroxide 30 ml 04/20/21 18:41 Magnesium Hydroxide (Mom) Oral Liqd Udc PO Q4H PRN Constipation Metoclopramide HCl 5 mg 05/15/21 09:00 Metoclopramide 10 Mg Tab PO Q6H PRN Nausea And Vomiting Metoprolol Tartrate 100 mg 04/29/21 12:00 05/17/21 09:21 Metoprolol Tartrate 50 Mg Tab PO 100 mg BID NAMAN Administration Ondansetron HCl 4 mg 04/20/21 18:41 Ondansetron 4 Mg/2 Ml Inj IV Q8H PRN Nausea And Vomiting Oxycodone/Acetaminophen 1 tab 04/20/21 18:41 04/28/21 18:05 Oxycodone /Acetaminophen 5-325mg Tab PO 1 tab Q12H PRN Administration Pain, Moderate (4-6) Promethazine HCl 25 mg 04/20/21 18:41 Promethazine 25 Mg Rect Supp ID Q6H PRN Nausea And Vomiting Simple Syrup 15 ml 04/25/21 15:16 Simple Syrup 15 Ml FEEDTUBE PRN PRN Hypoglycemia Simple Syrup 30 ml 04/25/21 15:16 Simple Syrup 15 Ml FEEDTUBE PRN PRN Hypoglycemia Sodium Bicarbonate 325 mg 04/25/21 15:16 Sodium Bicarbonate 325 Mg Tab FEEDTUBE PRN PRN For Clogged Feeding Tube Sodium Chloride 10 ml 04/20/21 18:41 05/13/21 21:05 Sodium Chloride 0.9% 10 Ml Flush Syringe IV 10 ml PRN PRN Administration LINE FLUSH
[2021-05-18] MEDS: INSULIN LISPRO 100 UNIT/ML SUB-Q SCH ×4 (00:10→17:18)
[2021-05-18] MEDS: FREE WATER PO SCH ×5 (02:49→21:54)
[2021-05-18 05:30] LABS: Calcium 9.2 mg/dL (8.4-10.2)
[2021-05-18] MEDS: DEXTROSE 5% IN WATER 1,000 ML IV SCH ×2 (05:48→17:19)
--- NOTE | 2021-05-18 08:38 | Progress Note ---
Assessment and Plan Assessment and plan: 61-year-old male w/ hx of CVH with LHP, nicotine dependence, EtOH dependence who presented with worsening left-sided weakness and difficulty speaking for 2 days. Code stroke was initiated. Patient was also discovered to have new onset A. fib with RVR. Currently stable, requiring feeding tube awaiting safe discharge. Patient is uninsured and will require total care at this time. Exploring hospice, NOK will need to agree to stopping use of PEG tube. #Acute/subacute CVA #Acute metabolic encephalopathy-Multifactorial -CT with extensive microvascular changes; MRI brain showed subacute multi- infarct cerebellar and brain stem / luba -US carotid <50% stenosis -stroke likely embolic from A fib; continue eliquis and metoprolol, amiodarone for rate control -TTE showed diastolic dysfunction; normal EF and no evidence of PFO Continue aspirin and lipitor Physical therapy/Occupational Therapy recommended subacute rehab, however the patient is uninsured #Dysphagia #Dysarthria -PEG tube placed on 04/28/2021 -tube feeds at 55cc/hr, will continue; nutrition managing -meds per PEG tube #BHASKAR, vasomotor nephropathy -Improving -continue free water flushes via PEG tube -Renal ultrasound suggestive of medical renal disease -avoid nephrotoxins and renally dose medications -Nephrology consulted, assistance appreciated #Hypernatremia-improving -continue free water flushes -Continue D5 125cc/hr #COVID-19 positive -PCR 04/27/2021 -supportive care #Type 2 diabetes mellitus -Hyperglycemia secondary to IV fluid use to treat hypernatremia -continue accuchecks and sliding scale -humulin increased to 20 units qday -continue ADA diet -goal glucose 140-180, will adjust insulin as needed #Atrial fibrillation with RVR, (new onset) -rate currently controlled -continue amiodarone, metoprolol and eliquis #Moderate protein calorie malnutrition -albumin 3.2 -nutrition consult, continue TF #Advanced care planning #Discharge planning -Legal next of kin Daughter Soniya Mabry ([phone]) still has not made a decision regarding PEG tube. Discussed with CM about contacting Adult Protective Services and starting the process for Guardianship for the patient. Family has contacted [facility] to evaluate the patient for inpatient hospice. History Interval history: No acute events overnight. Patient responsive to auditory stimuli but does not follow commands. Hospitalist Physical - Physical exam Narrative exam: GENERAL: Well-developed well-nourished. In no acute distress. HEENT: Dry mucous membranes. CHEST/LUNGS: CTAB on room air HEART/CARDIOVASCULAR: RRR. No murmur, rubs or gallops appreciated. ABDOMEN: + PEG tube. +BS. NT/ND. NEURO: Unable to assess. EXTREMITIES: No cyanosis, clubbing or edema. PSYCH: Unable to assess. - Constitutional Vitals: Temp Pulse Resp BP Pulse Ox 98.6 F 58 L 20 135/69 99 05/18/21 05:37 05/18/21 05:37 05/18/21 05:37 05/18/21 05:37 05/18/21 05:37 General appearance: Present: no acute distress, well-nourished, other (Dysarthria, confused) HEART Score - HEART Score Troponin: Troponin T 0.011 ng/mL (0.00-0.029) 04/20/21 17:44 Results - Labs CBC & Chem 7: 05/15/21 04:38 05/18/21 04:30 Labs: Laboratory Last Values WBC 11.2 K/mm3 (4.5-11.0) H 05/15/21 04:38 RBC 5.54 M/mm3 (3.65-5.03) H 05/15/21 04:38 Hgb 15.4 gm/dl (11.8-15.2) H 05/15/21 04:38 Hct 49.4 % (35.5-45.6) H 05/15/21 04:38 MCV 89 fl (84-94) 05/15/21 04:38 MCH 28 pg (28-32) 05/15/21 04:38 MCHC 31 % (32-34) L 05/15/21 04:38 RDW 13.8 % (13.2-15.2) 05/15/21 04:38 Plt Count 267 K/mm3 (140-440) 05/15/21 04:38 Lymph % (Auto) 11.5 % (13.4-35.0) L 05/04/21 05:54 [place] % (Auto) 12.8 % (0.0-7.3) H 05/04/21 05:54 Eos % (Auto) 2.2 % (0.0-4.3) 05/04/21 05:54 Baso % (Auto) 0.6 % (0.0-1.8) 05/04/21 05:54 Lymph # (Auto) 1.3 K/mm3 (1.2-5.4) 05/04/21 05:54 [place] # (Auto) 1.5 K/mm3 (0.0-0.8) H 05/04/21 05:54 Eos # (Auto) 0.3 K/mm3 (0.0-0.4) 05/04/21 05:54 Baso # (Auto) 0.1 K/mm3 (0.0-0.1) 05/04/21 05:54 Seg Neutrophils % 72.9 % (40.0-70.0) H 05/04/21 05:54 Seg Neutrophils # 8.5 K/mm3 (1.8-7.7) H 05/04/21 05:54 PT 14.1 Sec. (12.2-14.9) 04/28/21 13:53 INR 0.98 (0.87-1.13) 04/28/21 13:53 APTT 31.8 Sec. (24.2-36.6) 04/28/21 13:53 Thrombin Time 16.2 Sec. (15.1-19.6) 04/20/21 17:44 D-Dimer 894.94 ng/mlDDU (0-234) H 04/28/21 09:29 Sodium 153 mmol/L (137-145) H 05/18/21 04:30 Potassium 4.2 mmol/L (3.6-5.0) 05/18/21 04:30 Chloride 118.3 mmol/L (98-107) H 05/18/21 04:30 Carbon Dioxide 22 mmol/L (22-30) 05/18/21 04:30 Anion Gap 17 mmol/L 05/18/21 04:30 BUN 49 mg/dL (9-20) H 05/18/21 04:30 Creatinine 1.7 mg/dL (0.8-1.3) H 05/18/21 04:30 Estimated GFR 50 ml/min 05/18/21 04:30 BUN/Creatinine Ratio 29 % 05/18/21 04:30 Glucose 338 mg/dL (75-100) H 05/18/21 04:30 POC Glucose 307 mg/dL (70-105) H 05/18/21 05:39 Calcium 9.2 mg/dL (8.4-10.2) 05/18/21 04:30 Magnesium 1.90 mg/dL (1.7-2.3) 04/20/21 17:44 Ferritin 1157.0 ng/mL (30.0-300.0) H 04/28/21 09:29 Total Bilirubin 0.20 mg/dL (0.1-1.2) 05/06/21 05:32 AST 25 units/L (5-40) 05/06/21 05:32 ALT 64 units/L (7-56) H 05/06/21 05:32 Alkaline Phosphatase 168 units/L (35-129) H 05/06/21 05:32 Lactate Dehydrogenase 287 units/L (91-180) H 04/28/21 09:29 Total Creatine Kinase 79 units/L (55-170) 04/20/21 17:44 Total Creatine Kinase 81 units/L (55-170) 04/20/21 17:44 CK-MB (CK-2) 2.1 ng/mL (0.0-4.0) 04/20/21 17:44 CK-MB (CK-2) Rel Index 2.6 (0-4) 04/20/21 17:44 Troponin T 0.011 ng/mL (0.00-0.029) 04/20/21 17:44 C-Reactive Protein 15.40 mg/dL (0.00-1.30) H 04/28/21 09:29 Total Protein 7.4 g/dL (6.3-8.2) 05/06/21 05:32 Albumin 3.2 g/dL (3.9-5) L 05/06/21 05:32 Albumin/Globulin Ratio 0.8 % 05/06/21 05:32 TSH 1.040 mlU/mL (0.270-4.200) 04/20/21 19:42 Free T4 1.16 ng/dL (0.76-1.46) 04/20/21 19:42 Urine Color [place] (Yellow) 04/26/21 Unknown Urine Turbidity Cloudy (Clear) 04/26/21 Unknown Urine pH 5.0 (5.0-7.0) 04/26/21 Unknown Ur Specific [place] 1.020 (1.003-1.030) 04/26/21 Unknown Urine Protein 100 mg/dl mg/dL (Negative) 04/26/21 Unknown Urine Glucose (UA) >=500 mg/dL (Negative) 04/26/21 Unknown Urine Ketones Neg mg/dL (Negative) 04/26/21 Unknown Urine Blood Mod (Negative) 04/26/21 Unknown Urine Nitrite Neg (Negative) 04/26/21 Unknown Urine Bilirubin Neg (Negative) 04/26/21 Unknown Urine Urobilinogen 2.0 mg/dL (<2.0) 04/26/21 Unknown Ur Leukocyte Esterase Neg (Negative) 04/26/21 Unknown Urine WBC (Auto) 1.0 /HPF (0.0-6.0) 04/20/21 18:19 Urine RBC (Auto) 3.0 /HPF (0.0-6.0) 04/20/21 18:19 U Epithel Cells (Auto) < 1.0 /HPF (0-13.0) 04/20/21 18:19 Hyaline Casts 5 /LPF 04/20/21 18:19 Urine Mucus Few /HPF 04/20/21 18:19 Plasma/Serum Alcohol < 0.01 % (0-0.07) 04/20/21 17:44 Coronavirus (PCR) Negative (Negative) 05/09/21 09:20 [place]/IV: Voiding Method Condom Catheter Active Medications - Current Medications Current Medications: Generic Name Dose Route Start Last Admin Trade Name Freq PRN Reason Stop Dose Admin Acetaminophen 650 mg 04/20/21 18:41 05/10/21 08:02 Acetaminophen 325 Mg Tab PO 650 mg Q4H PRN Administration Pain, Mild (1-3) Albuterol 2.5 mg 04/20/21 18:41 Albuterol 2.5 Mg/3 Ml Nebu IH Q3HRT PRN Shortness Of Breath Amiodarone HCl 200 mg 05/01/21 10:00 05/17/21 09:21 Amiodarone 200 Mg Tab PO 200 mg DAILY NAMAN Administration Amlodipine Besylate 10 mg 05/01/21 10:00 05/17/21 09:22 Amlodipine 10 Mg Tab PO 10 mg QDAY NAMAN Administration Lipase/Protease/Amylase 1 each 04/25/21 15:16 Lipase 10,500/Protease 25,000/Amylase 43,750 (Units) Dr Willingham FEEDTUBE PRN PRN For Clogged Feeding Tube Apixaban 5 mg 04/29/21 10:00 05/17/21 21:00 Apixaban 5 Mg Tab PO 5 mg Q12HR NAMAN Administration Protocol Aspirin 81 mg 05/13/21 10:00 05/17/21 09:21 Aspirin Ec 81 Mg Tab PO 81 mg QDAY NAMAN Administration Atorvastatin Calcium 40 mg 04/20/21 22:00 05/17/21 21:00 Atorvastatin 40 Mg Tab PO 40 mg QHS NAMAN Administration Bisacodyl 10 mg 04/20/21 18:41 Bisacodyl 10 Mg Rect Supp ID QDAY PRN Constipation Cyclobenzaprine HCl 10 mg 04/20/21 19:00 04/24/21 12:36 Cyclobenzaprine 10 Mg Tab PO 10 mg TID PRN Administration Muscle Spasm Dextrose 0 ml 04/27/21 04:03 Dextrose 10% *Hypoglycemia IV PRN PRN Hypoglycemia Protocol Folic Acid 1 mg 04/20/21 18:59 05/17/21 09:22 Folic Acid 1 Mg Tab PO 1 mg QDAY NAMAN Administration Hydralazine HCl 10 mg 04/30/21 05:49 05/01/21 06:02 Hydralazine 20 Mg/1 Ml Inj IV 10 mg Q6HR PRN Administration Hypertension Hydralazine HCl 100 mg 05/01/21 12:00 05/17/21 20:59 Hydralazine 100 Mg Tab PO 100 mg TID NAMAN Administration Hydromorphone HCl 0.5 mg 04/20/21 18:41 05/13/21 09:33 Hydromorphone 1 Mg/1 Ml Inj IV 0.5 mg Q6H PRN Administration Pain , Severe (7-10) Dextrose 1,000 mls @ 125 mls/hr 05/15/21 10:00 05/18/21 05:48 D5w IV 125 mls/hr DIRECT NAMAN Administration Insulin Human Lispro 0 unit 04/27/21 04:00 05/18/21 05:48 Insulin Lispro 100 Unit/Ml SUB-Q 8 unit Q6HR NAMAN Administration Protocol Lansoprazole 30 mg 04/28/21 11:00 05/17/21 09:21 Lansoprazole 30 Mg Solutab FEEDTUBE 30 mg QDAY NAMAN Administration Lorazepam 2 mg 04/20/21 18:44 04/28/21 23:41 Lorazepam 2 Mg/Ml Vial IV 2 mg Q1HR PRN Administration CIWA-Ar 8-15 Magnesium Hydroxide 30 ml 04/20/21 18:41 Magnesium Hydroxide (Mom) Oral Liqd Udc PO Q4H PRN Constipation Metoclopramide HCl 5 mg 05/15/21 09:00 Metoclopramide 10 Mg Tab PO Q6H PRN Nausea And Vomiting Metoprolol Tartrate 100 mg 04/29/21 12:00 05/17/21 21:00 Metoprolol Tartrate 50 Mg Tab PO 100 mg BID NAMAN Administration Ondansetron HCl 4 mg 04/20/21 18:41 Ondansetron 4 Mg/2 Ml Inj IV Q8H PRN Nausea And Vomiting Oxycodone/Acetaminophen 1 tab 04/20/21 18:41 04/28/21 18:05 Oxycodone /Acetaminophen 5-325mg Tab PO 1 tab Q12H PRN Administration Pain, Moderate (4-6) Promethazine HCl 25 mg 04/20/21 18:41 Promethazine 25 Mg Rect Supp ID Q6H PRN Nausea And Vomiting Simple Syrup 15 ml 04/25/21 15:16 Simple Syrup 15 Ml FEEDTUBE PRN PRN Hypoglycemia Simple Syrup 30 ml 04/25/21 15:16 Simple Syrup 15 Ml FEEDTUBE PRN PRN Hypoglycemia Sodium Bicarbonate 325 mg 04/25/21 15:16 Sodium Bicarbonate 325 Mg Tab FEEDTUBE PRN PRN For Clogged Feeding Tube Sodium Chloride 10 ml 04/20/21 18:41 05/13/21 21:05 Sodium Chloride 0.9% 10 Ml Flush Syringe IV 10 ml PRN PRN Administration LINE FLUSH Nutrition/Malnutrition Assess - Dietary Evaluation Nutrition/Malnutrition Findings: Nutrition Notes Start: 04/23/21 12:36 Freq: Status: Active Protocol: Document 05/14/21 12:46 ANNIKA (Rec: 05/14/21 12:55 ANNIKA [id number]) Nutrition Notes Initial or Follow up Brief Note Current Diet TF-Glucerna 1.2 [place] @ 63 ml/hr (since D 05/14). Height 6 ft 3 in Weight 79.5 kg [place] Body Weight (kg) 89.09 BMI 21.9 Weight change and time frame No body weight change reported in 20 days. Subjective/Other Information RD consult for change formula back to Glucerna 1.2 Maurice. Percent of energy/protein needs met: Prescribed Glucerna 1.2 [place] @ 63 ml/hr provides for energy/ protein needs (1,819 Kcal/91 g ) during LOS, 90% Kcal; 100% AA. #1 Nutrition Diagnosis Inadequate oral intake Diagnosis Progress(for reassessment Continues documentation) Is patient on ventilator? No Is Patient Ambulatory and/or Out of Bed No REE-([facility]-confined to bed) 2020.748 Calculation Used for Recommendations [facility] Additional Notes Protein: 1-1.2 g/Kg; 80-95 g/ day. Fluids: 1 ml/Kcal, or as per MD. Nutrition Intervention Nutrition Support: Change back to Glucerna 1.2 [place] @ 63 ml/hr. Flush: 130 ml water Q 4 hr, or as per MD. Kcal 1,819 Protein (gm) 91 Carbohydrates (gm) 174 Fat (gm) 91 Fluid (mL) 1,220 Fiber (gm) 24 % RDI: 90% Kcal; 100% AA. Goal #1 Provide at least 75% of energy /protein needs through Enteral Feeding during LOS. Goal #2 Maintain body weight within +/ -3% of admission body weight during LOS. Follow-Up By: 05/20/21 Additional Comments Continue monitoring TF tolerance and BM.
[2021-05-18] MEDS: hydrALAZINE 100 MG TAB PO SCH ×3 (09:27→21:53)
[2021-05-18] MEDS: APIXABAN 5 MG TAB PO SCH ×2 (09:28→21:53)
[2021-05-18] MEDS: FOLIC ACID 1 MG TAB PO SCH (09:28)
[2021-05-18] MEDS: LANSOPRAZOLE 30 MG SOLUTAB FEEDTUBE SCH (09:28)
[2021-05-18] MEDS: ASPIRIN EC 81 MG TAB PO SCH (09:28)
[2021-05-18] MEDS: AMIODARONE 200 MG TAB PO SCH (09:29)
[2021-05-18] MEDS: amLODIPine 10 MG TAB PO SCH (09:29)
[2021-05-18] MEDS: METOPROLOL TARTRATE 50 MG TAB PO SCH ×2 (09:29→21:52)
[2021-05-18] MEDS: INSULIN NPH/REGULAR 70/30 INJ SUB-Q SCH ×2 (10:44→17:19)
--- NOTE | 2021-05-18 14:05 | Progress Note ---
Assessment and Plan Impression: * Acute kidney injury secondary to prerenal azotemia due to dehydration * Hypernatremia secondary to dehydration * Acute CVA with left hemiparesis * Atrial fibrillation * HFrEF --TTE: EF 45 to 50%. Hypokinesis of basal inferior septal wall. Hypokinesis inferior wall. Right ventricle systolic function is normal. Bubble study did not demonstrate PFO (Apr 20) * DM Plan: * Na trending down. SCr improved. * Continue IVF - D5W 125ml/hour * Continue free H2O with TF * Glycemic control per primary team * Rate control/anticoagulation per cardiology * Dose medications for renal function * Avoid potential nephrotoxins * Daily BMP Subjective Date of service: 05/18/21 Principal diagnosis: Acute CVA Interval history: No acute events overnight Objective - Vital Signs Vital signs: Vital Signs - 12hr 05/18/21 05/18/21 05/18/21 05:37 09:29 11:59 Temperature 98.6 F 98.0 F Pulse Rate 58 L Respiratory 20 20 Rate Blood Pressure 135/69 123/84 121/65 O2 Sat by Pulse 99 Oximetry 05/18/21 12:00 Temperature Pulse Rate Respiratory Rate Blood Pressure O2 Sat by Pulse 93 Oximetry - General Appearance General appearance: well-developed, well-nourished EENT: ATNC Respiratory: Present: Clear to Ascultation Cardiology: regular, S1S2 Gastrointestinal: normal, no tenderness, no distended Neurologic: other (unresponsive) - Lab 05/15/21 04:38 05/18/21 04:30 Most recent lab results Calcium 9.2 mg/dL (8.4-10.2) 05/18/21 04:30 Magnesium 1.90 mg/dL (1.7-2.3) 04/20/21 17:44 Medications & Allergies - Medications Allergies/Adverse Reactions: Allergies No Known Allergies Allergy (Verified 08/24/20 14:13) Home Medications: Home Medications Medication Instructions Recorded Confirmed Last Taken Type No Known Home Medications [No 04/30/21 04/30/21 Unknown History Reported Home Medications] Active Medications: Generic Name Dose Route Start Last Admin Trade Name Freq PRN Reason Stop Dose Admin Acetaminophen 650 mg 04/20/21 18:41 05/10/21 08:02 Acetaminophen 325 Mg Tab PO 650 mg Q4H PRN Administration Pain, Mild (1-3) Albuterol 2.5 mg 04/20/21 18:41 Albuterol 2.5 Mg/3 Ml Nebu IH Q3HRT PRN Shortness Of Breath Amiodarone HCl 200 mg 05/01/21 10:00 05/18/21 09:29 Amiodarone 200 Mg Tab PO 200 mg DAILY NAMAN Administration Amlodipine Besylate 10 mg 05/01/21 10:00 05/18/21 09:29 Amlodipine 10 Mg Tab PO 10 mg QDAY NAMAN Administration Lipase/Protease/Amylase 1 each 04/25/21 15:16 Lipase 10,500/Protease 25,000/Amylase 43,750 (Units) Dr Willingham FEEDTUBE PRN PRN For Clogged Feeding Tube Apixaban 5 mg 04/29/21 10:00 05/18/21 09:28 Apixaban 5 Mg Tab PO 5 mg Q12HR NAMAN Administration Protocol Aspirin 81 mg 05/13/21 10:00 05/18/21 09:28 Aspirin Ec 81 Mg Tab PO 81 mg QDAY NAMAN Administration Atorvastatin Calcium 40 mg 04/20/21 22:00 05/17/21 21:00 Atorvastatin 40 Mg Tab PO 40 mg QHS NAMAN Administration Bisacodyl 10 mg 04/20/21 18:41 Bisacodyl 10 Mg Rect Supp DE QDAY PRN Constipation Cyclobenzaprine HCl 10 mg 04/20/21 19:00 04/24/21 12:36 Cyclobenzaprine 10 Mg Tab PO 10 mg TID PRN Administration Muscle Spasm Dextrose 0 ml 04/27/21 04:03 Dextrose 10% *Hypoglycemia IV PRN PRN Hypoglycemia Protocol Folic Acid 1 mg 04/20/21 18:59 05/18/21 09:28 Folic Acid 1 Mg Tab PO 1 mg QDAY NAMAN Administration Hydralazine HCl 10 mg 04/30/21 05:49 05/01/21 06:02 Hydralazine 20 Mg/1 Ml Inj IV 10 mg Q6HR PRN Administration Hypertension Hydralazine HCl 100 mg 05/01/21 12:00 05/18/21 14:00 Hydralazine 100 Mg Tab PO 100 mg TID NAMAN Administration Hydromorphone HCl 0.5 mg 04/20/21 18:41 05/13/21 09:33 Hydromorphone 1 Mg/1 Ml Inj IV 0.5 mg Q6H PRN Administration Pain , Severe (7-10) Dextrose 1,000 mls @ 125 mls/hr 05/15/21 10:00 05/18/21 05:48 D5w IV 125 mls/hr DIRECT NAMAN Administration Insulin Human Isoph/Insulin Regular 22 unit 05/18/21 08:37 Insulin Nph/Regular 70/30 Inj SUB-Q BIDDIAB NAMAN Insulin Human Lispro 0 unit 04/27/21 04:00 05/18/21 12:14 Insulin Lispro 100 Unit/Ml SUB-Q 8 unit Q6HR NAMAN Administration Protocol Lansoprazole 30 mg 04/28/21 11:00 05/18/21 09:28 Lansoprazole 30 Mg Solutab FEEDTUBE 30 mg QDAY NAMAN Administration Lorazepam 2 mg 04/20/21 18:44 04/28/21 23:41 Lorazepam 2 Mg/Ml Vial IV 2 mg Q1HR PRN Administration Ana 8-15 Magnesium Hydroxide 30 ml 04/20/21 18:41 Magnesium Hydroxide (Mom) Oral Liqd Udc PO Q4H PRN Constipation Metoclopramide HCl 5 mg 05/15/21 09:00 Metoclopramide 10 Mg Tab PO Q6H PRN Nausea And Vomiting Metoprolol Tartrate 100 mg 04/29/21 12:00 05/18/21 09:29 Metoprolol Tartrate 50 Mg Tab PO 100 mg BID NAMAN Administration Ondansetron HCl 4 mg 04/20/21 18:41 Ondansetron 4 Mg/2 Ml Inj IV Q8H PRN Nausea And Vomiting Oxycodone/Acetaminophen 1 tab 04/20/21 18:41 04/28/21 18:05 Oxycodone /Acetaminophen 5-325mg Tab PO 1 tab Q12H PRN Administration Pain, Moderate (4-6) Promethazine HCl 25 mg 04/20/21 18:41 Promethazine 25 Mg Rect Supp DE Q6H PRN Nausea And Vomiting Simple Syrup 15 ml 04/25/21 15:16 Simple Syrup 15 Ml FEEDTUBE PRN PRN Hypoglycemia Simple Syrup 30 ml 04/25/21 15:16 Simple Syrup 15 Ml FEEDTUBE PRN PRN Hypoglycemia Sodium Bicarbonate 325 mg 04/25/21 15:16 Sodium Bicarbonate 325 Mg Tab FEEDTUBE PRN PRN For Clogged Feeding Tube Sodium Chloride 10 ml 04/20/21 18:41 05/18/21 09:29 Sodium Chloride 0.9% 10 Ml Flush Syringe IV 10 ml PRN PRN Administration LINE FLUSH
[2021-05-19] MEDS: INSULIN LISPRO 100 UNIT/ML SUB-Q SCH ×4 (00:03→18:47)
[2021-05-19] MEDS: DEXTROSE 5% IN WATER 1,000 ML IV SCH ×2 (00:07→14:44)
[2021-05-19] MEDS: FREE WATER PO SCH ×4 (03:45→21:29)
[2021-05-19 09:28] LABS: Calcium 8.9 mg/dL (8.4-10.2)
--- NOTE | 2021-05-19 10:28 | Progress Note ---
Assessment and Plan Impression: * Acute kidney injury secondary to prerenal azotemia due to dehydration * Hypernatremia secondary to dehydration * Acute CVA with left hemiparesis * Atrial fibrillation * HFrEF --TTE: EF 45 to 50%. Hypokinesis of basal inferior septal wall. Hypokinesis inferior wall. Right ventricle systolic function is normal. Bubble study did not demonstrate PFO (Apr 20) * DM Plan: * Na trending down to 149 * SCr improved to 1.5 * Continue IVF - D5W 125ml/hour for now * Continue free H2O with TF * Glycemic control per primary team * Rate control/anticoagulation per cardiology * Dose medications for renal function * Avoid potential nephrotoxins * Daily BMP Subjective Date of service: 05/19/21 Principal diagnosis: Acute CVA Interval history: No acute issues noted, seen in room, patient resting. Remains on D5W, Tube Feeds Objective - Exam Narrative Exam: General appearance: well-developed, well-nourished EENT: ATNC Respiratory: Present: Clear to Ascultation Cardiology: regular, S1S2 Gastrointestinal: normal, no tenderness, no distended Neurologic: other (unresponsive) Skin: intact - Vital Signs Vital signs: Vital Signs - 12hr 05/19/21 00:00 Pulse Rate [ 60 From Monitor] Respiratory 18 Rate O2 Sat by Pulse 100 Oximetry - Lab 05/15/21 04:38 05/19/21 08:45 Most recent lab results Calcium 8.9 mg/dL (8.4-10.2) 05/19/21 08:45 Magnesium 1.90 mg/dL (1.7-2.3) 04/20/21 17:44 Medications & Allergies - Medications Allergies/Adverse Reactions: Allergies No Known Allergies Allergy (Verified 08/24/20 14:13) Home Medications: Home Medications Medication Instructions Recorded Confirmed Last Taken Type No Known Home Medications [No 04/30/21 04/30/21 Unknown History Reported Home Medications] Active Medications: Generic Name Dose Route Start Last Admin Trade Name Freq PRN Reason Stop Dose Admin Acetaminophen 650 mg 04/20/21 18:41 05/10/21 08:02 Acetaminophen 325 Mg Tab PO 650 mg Q4H PRN Administration Pain, Mild (1-3) Albuterol 2.5 mg 04/20/21 18:41 Albuterol 2.5 Mg/3 Ml Nebu IH Q3HRT PRN Shortness Of Breath Amiodarone HCl 200 mg 05/01/21 10:00 05/18/21 09:29 Amiodarone 200 Mg Tab PO 200 mg DAILY NAMAN Administration Amlodipine Besylate 10 mg 05/01/21 10:00 05/18/21 09:29 Amlodipine 10 Mg Tab PO 10 mg QDAY NAMAN Administration Lipase/Protease/Amylase 1 each 04/25/21 15:16 Lipase 10,500/Protease 25,000/Amylase 43,750 (Units) Dr Willingham FEEDTUBE PRN PRN For Clogged Feeding Tube Apixaban 5 mg 04/29/21 10:00 05/18/21 21:53 Apixaban 5 Mg Tab PO 5 mg Q12HR NAMAN Administration Protocol Aspirin 81 mg 05/13/21 10:00 05/18/21 09:28 Aspirin Ec 81 Mg Tab PO 81 mg QDAY NAMAN Administration Atorvastatin Calcium 40 mg 04/20/21 22:00 05/18/21 21:53 Atorvastatin 40 Mg Tab PO 40 mg QHS NAMAN Administration Bisacodyl 10 mg 04/20/21 18:41 Bisacodyl 10 Mg Rect Supp MN QDAY PRN Constipation Cyclobenzaprine HCl 10 mg 04/20/21 19:00 04/24/21 12:36 Cyclobenzaprine 10 Mg Tab PO 10 mg TID PRN Administration Muscle Spasm Dextrose 0 ml 04/27/21 04:03 Dextrose 10% *Hypoglycemia IV PRN PRN Hypoglycemia Protocol Folic Acid 1 mg 04/20/21 18:59 05/18/21 09:28 Folic Acid 1 Mg Tab PO 1 mg QDAY NAMAN Administration Hydralazine HCl 10 mg 04/30/21 05:49 05/01/21 06:02 Hydralazine 20 Mg/1 Ml Inj IV 10 mg Q6HR PRN Administration Hypertension Hydralazine HCl 100 mg 05/01/21 12:00 05/18/21 21:53 Hydralazine 100 Mg Tab PO 100 mg TID NAMAN Administration Hydromorphone HCl 0.5 mg 04/20/21 18:41 05/13/21 09:33 Hydromorphone 1 Mg/1 Ml Inj IV 0.5 mg Q6H PRN Administration Pain , Severe (7-10) Dextrose 1,000 mls @ 100 mls/hr 05/15/21 10:00 05/19/21 00:07 D5w IV 125 mls/hr DIRECT NAMAN Administration Insulin Human Isoph/Insulin Regular 22 unit 05/18/21 08:37 05/18/21 17:19 Insulin Nph/Regular 70/30 Inj SUB-Q 22 unit BIDDIAB NAMAN Administration Insulin Human Lispro 0 unit 04/27/21 04:00 05/19/21 06:04 Insulin Lispro 100 Unit/Ml SUB-Q 4 unit Q6HR NAMAN Administration Protocol Lansoprazole 30 mg 04/28/21 11:00 05/18/21 09:28 Lansoprazole 30 Mg Solutab FEEDTUBE 30 mg QDAY NAMAN Administration Lorazepam 2 mg 04/20/21 18:44 04/28/21 23:41 Lorazepam 2 Mg/Ml Vial IV 2 mg Q1HR PRN Administration GUALBERTO-Akhil 8-15 Magnesium Hydroxide 30 ml 04/20/21 18:41 Magnesium Hydroxide (Mom) Oral Liqd Udc PO Q4H PRN Constipation Metoclopramide HCl 5 mg 05/15/21 09:00 Metoclopramide 10 Mg Tab PO Q6H PRN Nausea And Vomiting Metoprolol Tartrate 100 mg 04/29/21 12:00 05/18/21 21:52 Metoprolol Tartrate 50 Mg Tab PO 100 mg BID NAMAN Administration Ondansetron HCl 4 mg 04/20/21 18:41 Ondansetron 4 Mg/2 Ml Inj IV Q8H PRN Nausea And Vomiting Oxycodone/Acetaminophen 1 tab 04/20/21 18:41 04/28/21 18:05 Oxycodone /Acetaminophen 5-325mg Tab PO 1 tab Q12H PRN Administration Pain, Moderate (4-6) Promethazine HCl 25 mg 04/20/21 18:41 Promethazine 25 Mg Rect Supp MN Q6H PRN Nausea And Vomiting Simple Syrup 15 ml 04/25/21 15:16 Simple Syrup 15 Ml FEEDTUBE PRN PRN Hypoglycemia Simple Syrup 30 ml 04/25/21 15:16 Simple Syrup 15 Ml FEEDTUBE PRN PRN Hypoglycemia Sodium Bicarbonate 325 mg 04/25/21 15:16 Sodium Bicarbonate 325 Mg Tab FEEDTUBE PRN PRN For Clogged Feeding Tube Sodium Chloride 10 ml 04/20/21 18:41 05/18/21 09:29 Sodium Chloride 0.9% 10 Ml Flush Syringe IV 10 ml PRN PRN Administration LINE FLUSH
[2021-05-19] MEDS: amLODIPine 10 MG TAB PO SCH (11:21)
[2021-05-19] MEDS: LANSOPRAZOLE 30 MG SOLUTAB FEEDTUBE SCH (11:21)
[2021-05-19] MEDS: FOLIC ACID 1 MG TAB PO SCH (11:22)
[2021-05-19] MEDS: AMIODARONE 200 MG TAB PO SCH (11:22)
[2021-05-19] MEDS: APIXABAN 5 MG TAB PO SCH ×2 (11:22→21:37)
[2021-05-19] MEDS: INSULIN NPH/REGULAR 70/30 INJ SUB-Q SCH ×2 (11:22→18:47)
[2021-05-19] MEDS: hydrALAZINE 100 MG TAB PO SCH ×3 (11:22→21:37)
[2021-05-19] MEDS: ASPIRIN EC 81 MG TAB PO SCH (11:22)
[2021-05-19] MEDS: METOPROLOL TARTRATE 50 MG TAB PO SCH ×2 (14:15→21:36)
--- NOTE | 2021-05-19 14:40 | Progress Note ---
Assessment and Plan Assessment and plan: 61-year-old male w/ hx of CVH with LHP, nicotine dependence, EtOH dependence who presented with worsening left-sided weakness and difficulty speaking for 2 days. Code stroke was initiated. Patient was also discovered to have new onset A. fib with RVR. Currently stable, requiring feeding tube awaiting safe discharge. Patient is uninsured and will require total care at this time. Exploring hospice, NOK will need to agree to stopping use of PEG tube. #Acute/subacute CVA #Acute metabolic encephalopathy-Multifactorial -CT with extensive microvascular changes; MRI brain showed subacute multi- infarct cerebellar and brain stem / luba -US carotid <50% stenosis -stroke likely embolic from A fib; continue eliquis and metoprolol, amiodarone for rate control -TTE showed diastolic dysfunction; normal EF and no evidence of PFO Continue aspirin and lipitor Physical therapy/Occupational Therapy recommended subacute rehab, however the patient is uninsured #Dysphagia #Dysarthria -PEG tube placed on 04/28/2021 -tube feeds at 63cc/hr, will continue; nutrition managing -meds per PEG tube #BHASKAR, vasomotor nephropathy -Improving -continue free water flushes via PEG tube -Renal ultrasound suggestive of medical renal disease -avoid nephrotoxins and renally dose medications -Nephrology consulted, assistance appreciated #Hypernatremia-improving -continue free water flushes -Continue D5 100cc/hr #COVID-19 positive -PCR 04/27/2021 -supportive care #Type 2 diabetes mellitus -Hyperglycemia secondary to IV fluid use to treat hypernatremia -continue accuchecks and sliding scale -humulin increased to 22 units qday -continue ADA diet -goal glucose 140-180, will adjust insulin as needed #Atrial fibrillation with RVR, (new onset) -rate currently controlled -continue amiodarone, metoprolol and eliquis #Moderate protein calorie malnutrition -albumin 3.2 -nutrition consult, continue TF #Advanced care planning #Discharge planning -Legal next of kin Daughter Soniya Mabry ([phone]) still has not made a decision regarding PEG tube. Discussed with CM about contacting Adult Protective Services and starting the process for Guardianship for the patient. Family has contacted [facility] to evaluate the patient for inpatient hospice. History Interval history: No acute events overnight. Patient responsive to auditory stimuli but does not follow commands. Hospitalist Physical - Physical exam Narrative exam: GENERAL: Well-developed well-nourished. In no acute distress. CHEST/LUNGS: CTAB on room air HEART/CARDIOVASCULAR: RRR. No murmur, rubs or gallops appreciated. ABDOMEN: + PEG tube. +BS. NT/ND. NEURO: Unable to assess. EXTREMITIES: No cyanosis, clubbing or edema. PSYCH: Unable to assess. - Constitutional Vitals: Temp Pulse Resp BP Pulse Ox 97.9 F 70 18 111/75 100 05/18/21 21:38 05/19/21 14:15 05/19/21 00:00 05/19/21 14:15 05/19/21 00:00 General appearance: Present: no acute distress, well-nourished, other (Dysarthria, confused) HEART Score - HEART Score Troponin: Troponin T 0.011 ng/mL (0.00-0.029) 04/20/21 17:44 Results - Labs CBC & Chem 7: 05/15/21 04:38 05/19/21 08:45 Labs: Laboratory Last Values WBC 11.2 K/mm3 (4.5-11.0) H 05/15/21 04:38 RBC 5.54 M/mm3 (3.65-5.03) H 05/15/21 04:38 Hgb 15.4 gm/dl (11.8-15.2) H 05/15/21 04:38 Hct 49.4 % (35.5-45.6) H 05/15/21 04:38 MCV 89 fl (84-94) 05/15/21 04:38 MCH 28 pg (28-32) 05/15/21 04:38 MCHC 31 % (32-34) L 05/15/21 04:38 RDW 13.8 % (13.2-15.2) 05/15/21 04:38 Plt Count 267 K/mm3 (140-440) 05/15/21 04:38 Lymph % (Auto) 11.5 % (13.4-35.0) L 05/04/21 05:54 [place] % (Auto) 12.8 % (0.0-7.3) H 05/04/21 05:54 Eos % (Auto) 2.2 % (0.0-4.3) 05/04/21 05:54 Baso % (Auto) 0.6 % (0.0-1.8) 05/04/21 05:54 Lymph # (Auto) 1.3 K/mm3 (1.2-5.4) 05/04/21 05:54 [place] # (Auto) 1.5 K/mm3 (0.0-0.8) H 05/04/21 05:54 Eos # (Auto) 0.3 K/mm3 (0.0-0.4) 05/04/21 05:54 Baso # (Auto) 0.1 K/mm3 (0.0-0.1) 05/04/21 05:54 Seg Neutrophils % 72.9 % (40.0-70.0) H 05/04/21 05:54 Seg Neutrophils # 8.5 K/mm3 (1.8-7.7) H 05/04/21 05:54 PT 14.1 Sec. (12.2-14.9) 04/28/21 13:53 INR 0.98 (0.87-1.13) 04/28/21 13:53 APTT 31.8 Sec. (24.2-36.6) 04/28/21 13:53 Thrombin Time 16.2 Sec. (15.1-19.6) 04/20/21 17:44 D-Dimer 894.94 ng/mlDDU (0-234) H 04/28/21 09:29 Sodium 149 mmol/L (137-145) H 05/19/21 08:45 Potassium 4.2 mmol/L (3.6-5.0) 05/19/21 08:45 Chloride 115.6 mmol/L (98-107) H 05/19/21 08:45 Carbon Dioxide 22 mmol/L (22-30) 05/19/21 08:45 Anion Gap 16 mmol/L 05/19/21 08:45 BUN 42 mg/dL (9-20) H 05/19/21 08:45 Creatinine 1.5 mg/dL (0.8-1.3) H 05/19/21 08:45 Estimated GFR 57 ml/min 05/19/21 08:45 BUN/Creatinine Ratio 28 % 05/19/21 08:45 Glucose 309 mg/dL (75-100) H 05/19/21 08:45 POC Glucose 362 mg/dL (70-105) H 05/19/21 11:59 Calcium 8.9 mg/dL (8.4-10.2) 05/19/21 08:45 Magnesium 1.90 mg/dL (1.7-2.3) 04/20/21 17:44 Ferritin 1157.0 ng/mL (30.0-300.0) H 04/28/21 09:29 Total Bilirubin 0.20 mg/dL (0.1-1.2) 05/06/21 05:32 AST 25 units/L (5-40) 05/06/21 05:32 ALT 64 units/L (7-56) H 05/06/21 05:32 Alkaline Phosphatase 168 units/L (35-129) H 05/06/21 05:32 Lactate Dehydrogenase 287 units/L (91-180) H 04/28/21 09:29 Total Creatine Kinase 79 units/L (55-170) 04/20/21 17:44 Total Creatine Kinase 81 units/L (55-170) 04/20/21 17:44 CK-MB (CK-2) 2.1 ng/mL (0.0-4.0) 04/20/21 17:44 CK-MB (CK-2) Rel Index 2.6 (0-4) 04/20/21 17:44 Troponin T 0.011 ng/mL (0.00-0.029) 04/20/21 17:44 C-Reactive Protein 15.40 mg/dL (0.00-1.30) H 04/28/21 09:29 Total Protein 7.4 g/dL (6.3-8.2) 05/06/21 05:32 Albumin 3.2 g/dL (3.9-5) L 05/06/21 05:32 Albumin/Globulin Ratio 0.8 % 05/06/21 05:32 TSH 1.040 mlU/mL (0.270-4.200) 04/20/21 19:42 Free T4 1.16 ng/dL (0.76-1.46) 04/20/21 19:42 Urine Color Saira (Yellow) 04/26/21 Unknown Urine Turbidity Cloudy (Clear) 04/26/21 Unknown Urine pH 5.0 (5.0-7.0) 04/26/21 Unknown Ur Specific [place] 1.020 (1.003-1.030) 04/26/21 Unknown Urine Protein 100 mg/dl mg/dL (Negative) 04/26/21 Unknown Urine Glucose (UA) >=500 mg/dL (Negative) 04/26/21 Unknown Urine Ketones Neg mg/dL (Negative) 04/26/21 Unknown Urine Blood Mod (Negative) 04/26/21 Unknown Urine Nitrite Neg (Negative) 04/26/21 Unknown Urine Bilirubin Neg (Negative) 04/26/21 Unknown Urine Urobilinogen 2.0 mg/dL (<2.0) 04/26/21 Unknown Ur Leukocyte Esterase Neg (Negative) 04/26/21 Unknown Urine WBC (Auto) 1.0 /HPF (0.0-6.0) 04/20/21 18:19 Urine RBC (Auto) 3.0 /HPF (0.0-6.0) 04/20/21 18:19 U Epithel Cells (Auto) < 1.0 /HPF (0-13.0) 04/20/21 18:19 Hyaline Casts 5 /LPF 04/20/21 18:19 Urine Mucus Few /HPF 04/20/21 18:19 Plasma/Serum Alcohol < 0.01 % (0-0.07) 04/20/21 17:44 Coronavirus (PCR) Negative (Negative) 05/09/21 09:20 Bravo/IV: Voiding Method Incontinent Active Medications - Current Medications Current Medications: Generic Name Dose Route Start Last Admin Trade Name Freq PRN Reason Stop Dose Admin Acetaminophen 650 mg 04/20/21 18:41 05/10/21 08:02 Acetaminophen 325 Mg Tab PO 650 mg Q4H PRN Administration Pain, Mild (1-3) Albuterol 2.5 mg 04/20/21 18:41 Albuterol 2.5 Mg/3 Ml Nebu IH Q3HRT PRN Shortness Of Breath Amiodarone HCl 200 mg 05/01/21 10:00 05/19/21 11:22 Amiodarone 200 Mg Tab PO 200 mg DAILY NAMAN Administration Amlodipine Besylate 10 mg 05/01/21 10:00 05/19/21 11:21 Amlodipine 10 Mg Tab PO 10 mg QDAY NAMAN Administration Lipase/Protease/Amylase 1 each 04/25/21 15:16 Lipase 10,500/Protease 25,000/Amylase 43,750 (Units) Dr Willingham FEEDTUBE PRN PRN For Clogged Feeding Tube Apixaban 5 mg 04/29/21 10:00 05/19/21 11:22 Apixaban 5 Mg Tab PO 5 mg Q12HR NAMAN Administration Protocol Aspirin 81 mg 05/13/21 10:00 05/19/21 11:22 Aspirin Ec 81 Mg Tab PO 81 mg QDAY NAMAN Administration Atorvastatin Calcium 40 mg 04/20/21 22:00 05/18/21 21:53 Atorvastatin 40 Mg Tab PO 40 mg QHS NAMAN Administration Bisacodyl 10 mg 04/20/21 18:41 Bisacodyl 10 Mg Rect Supp MA QDAY PRN Constipation Cyclobenzaprine HCl 10 mg 04/20/21 19:00 04/24/21 12:36 Cyclobenzaprine 10 Mg Tab PO 10 mg TID PRN Administration Muscle Spasm Dextrose 0 ml 04/27/21 04:03 Dextrose 10% *Hypoglycemia IV PRN PRN Hypoglycemia Protocol Folic Acid 1 mg 04/20/21 18:59 05/19/21 11:22 Folic Acid 1 Mg Tab PO 1 mg QDAY NAMAN Administration Hydralazine HCl 10 mg 04/30/21 05:49 05/01/21 06:02 Hydralazine 20 Mg/1 Ml Inj IV 10 mg Q6HR PRN Administration Hypertension Hydralazine HCl 100 mg 05/01/21 12:00 05/19/21 14:16 Hydralazine 100 Mg Tab PO Not Given TID NAMAN Hydromorphone HCl 0.5 mg 04/20/21 18:41 05/13/21 09:33 Hydromorphone 1 Mg/1 Ml Inj IV 0.5 mg Q6H PRN Administration Pain , Severe (7-10) Dextrose 1,000 mls @ 100 mls/hr 05/15/21 10:00 05/19/21 00:07 D5w IV 125 mls/hr DIRECT NAMAN Administration Insulin Human Isoph/Insulin Regular 22 unit 05/18/21 08:37 05/19/21 11:22 Insulin Nph/Regular 70/30 Inj SUB-Q 22 unit BIDDIAB NAMAN Administration Insulin Human Lispro 0 unit 04/27/21 04:00 05/19/21 14:10 Insulin Lispro 100 Unit/Ml SUB-Q 10 unit Q6HR NAMAN Administration Protocol Lansoprazole 30 mg 04/28/21 11:00 05/19/21 11:21 Lansoprazole 30 Mg Solutab FEEDTUBE 30 mg QDAY NAMAN Administration Lorazepam 2 mg 04/20/21 18:44 04/28/21 23:41 Lorazepam 2 Mg/Ml Vial IV 2 mg Q1HR PRN Administration [facility] 8-15 Magnesium Hydroxide 30 ml 04/20/21 18:41 Magnesium Hydroxide (Mom) Oral Liqd Udc PO Q4H PRN Constipation Metoclopramide HCl 5 mg 05/15/21 09:00 Metoclopramide 10 Mg Tab PO Q6H PRN Nausea And Vomiting Metoprolol Tartrate 100 mg 04/29/21 12:00 05/19/21 14:15 Metoprolol Tartrate 50 Mg Tab PO Not Given BID NAMAN Ondansetron HCl 4 mg 04/20/21 18:41 Ondansetron 4 Mg/2 Ml Inj IV Q8H PRN Nausea And Vomiting Oxycodone/Acetaminophen 1 tab 04/20/21 18:41 04/28/21 18:05 Oxycodone /Acetaminophen 5-325mg Tab PO 1 tab Q12H PRN Administration Pain, Moderate (4-6) Promethazine HCl 25 mg 04/20/21 18:41 Promethazine 25 Mg Rect Supp MA Q6H PRN Nausea And Vomiting Simple Syrup 15 ml 04/25/21 15:16 Simple Syrup 15 Ml FEEDTUBE PRN PRN Hypoglycemia Simple Syrup 30 ml 04/25/21 15:16 Simple Syrup 15 Ml FEEDTUBE PRN PRN Hypoglycemia Sodium Bicarbonate 325 mg 04/25/21 15:16 Sodium Bicarbonate 325 Mg Tab FEEDTUBE PRN PRN For Clogged Feeding Tube Sodium Chloride 10 ml 04/20/21 18:41 05/18/21 09:29 Sodium Chloride 0.9% 10 Ml Flush Syringe IV 10 ml PRN PRN Administration LINE FLUSH Nutrition/Malnutrition Assess - Dietary Evaluation Nutrition/Malnutrition Findings: Nutrition Notes Start: 04/23/21 12:36 Freq: Status: Active Protocol: Document 05/14/21 12:46 ANNIKA (Rec: 05/14/21 12:55 ANNIKA [id number]) Nutrition Notes Initial or Follow up Brief Note Current Diet TF-Glucerna 1.2 Maurice @ 63 ml/hr (since D 05/14). Height 6 ft 3 in Weight 79.5 kg [place] Body Weight (kg) 89.09 BMI 21.9 Weight change and time frame No body weight change reported in 20 days. Subjective/Other Information RD consult for change formula back to Glucerna 1.2 Maurice. Percent of energy/protein needs met: Prescribed Glucerna 1.2 Maurice @ 63 ml/hr provides for energy/ protein needs (1,819 Kcal/91 g ) during LOS, 90% Kcal; 100% AA. #1 Nutrition Diagnosis Inadequate oral intake Diagnosis Progress(for reassessment Continues documentation) Is patient on ventilator? No Is Patient Ambulatory and/or Out of Bed No REE-([place]-St. Jeor-confined to bed) 2020.748 Calculation Used for Recommendations [place]-St Jeor Additional Notes Protein: 1-1.2 g/Kg; 80-95 g/ day. Fluids: 1 ml/Kcal, or as per MD. Nutrition Intervention Nutrition Support: Change back to Glucerna 1.2 [place] @ 63 ml/hr. Flush: 130 ml water Q 4 hr, or as per MD. Kcal 1,819 Protein (gm) 91 Carbohydrates (gm) 174 Fat (gm) 91 Fluid (mL) 1,220 Fiber (gm) 24 % RDI: 90% Kcal; 100% AA. Goal #1 Provide at least 75% of energy /protein needs through Enteral Feeding during LOS. Goal #2 Maintain body weight within +/ -3% of admission body weight during LOS. Follow-Up By: 05/20/21 Additional Comments Continue monitoring TF tolerance and BM.
[2021-05-20] MEDS: INSULIN LISPRO 100 UNIT/ML SUB-Q SCH ×4 (00:40→17:20)
[2021-05-20] MEDS: FREE WATER PO SCH ×4 (03:08→23:05)
[2021-05-20] MEDS: ACETAMINOPHEN 325 MG TAB PO PRN (04:36)
[2021-05-20 06:19] LABS: Calcium 8.6 mg/dL (8.4-10.2)
[2021-05-20] MEDS: INSULIN NPH/REGULAR 70/30 INJ SUB-Q SCH ×2 (08:53→17:21)
[2021-05-20] MEDS: hydrALAZINE 100 MG TAB PO SCH ×3 (08:54→20:25)
[2021-05-20] MEDS: FOLIC ACID 1 MG TAB PO SCH (09:21)
[2021-05-20] MEDS: LANSOPRAZOLE 30 MG SOLUTAB FEEDTUBE SCH (09:21)
[2021-05-20] MEDS: METOPROLOL TARTRATE 50 MG TAB PO SCH ×2 (09:21→23:07)
[2021-05-20] MEDS: ASPIRIN EC 81 MG TAB PO SCH (09:21)
[2021-05-20] MEDS: AMIODARONE 200 MG TAB PO SCH (09:21)
[2021-05-20] MEDS: APIXABAN 5 MG TAB PO SCH ×2 (09:22→23:05)
[2021-05-20] MEDS: amLODIPine 10 MG TAB PO SCH (09:22)
--- NOTE | 2021-05-20 11:58 | Progress Note ---
Assessment and Plan Impression: * Acute kidney injury secondary to prerenal azotemia due to dehydration * Hypernatremia secondary to dehydration * Acute CVA with left hemiparesis * Atrial fibrillation * HFrEF --TTE: EF 45 to 50%. Hypokinesis of basal inferior septal wall. Hypokinesis inferior wall. Right ventricle systolic function is normal. Bubble study did not demonstrate PFO (Apr 20) * DM Plan: * Na trending slightly up to 151 (was 149) * SCr slightly higher to 1.5->1.7 * Continue IVF - D5W 125ml/hour for now * Continue free H2O with TF, may need to increase if renal indices continue to trend as above (appears to be on 130cc q4hrs) * Glycemic control per primary team * Rate control/anticoagulation per cardiology * Dose medications for renal function * Avoid potential nephrotoxins * Daily BMP Subjective Date of service: 05/20/21 Principal diagnosis: Acute CVA Interval history: No acute issues noted, seen in room, patient resting. Remains on D5W, Tube Feeds Objective - Exam Narrative Exam: General appearance: well-developed, well-nourished EENT: ATNC Respiratory: Present: Clear to Ascultation Cardiology: regular, S1S2 Gastrointestinal: normal, no tenderness, no distended Neurologic: other (unresponsive) Skin: intact - Vital Signs Vital signs: Vital Signs - 12hr 05/20/21 05/20/21 05/20/21 04:00 04:36 05:11 Temperature 102.5 F H Pulse Rate 85 107 H Respiratory 20 20 Rate Blood Pressure 138/88 O2 Sat by Pulse 94 Oximetry 05/20/21 05/20/21 05:36 09:21 Temperature Pulse Rate 107 H Respiratory 20 Rate Blood Pressure O2 Sat by Pulse Oximetry - Lab 05/15/21 04:38 05/20/21 05:38 Most recent lab results Calcium 8.6 mg/dL (8.4-10.2) 05/20/21 05:38 Magnesium 1.90 mg/dL (1.7-2.3) 04/20/21 17:44 Medications & Allergies - Medications Allergies/Adverse Reactions: Allergies No Known Allergies Allergy (Verified 08/24/20 14:13) Home Medications: Home Medications Medication Instructions Recorded Confirmed Last Taken Type No Known Home Medications [No 04/30/21 04/30/21 Unknown History Reported Home Medications] Active Medications: Generic Name Dose Route Start Last Admin Trade Name Freq PRN Reason Stop Dose Admin Albuterol 2.5 mg 04/20/21 18:41 Albuterol 2.5 Mg/3 Ml Nebu IH Q3HRT PRN Shortness Of Breath Amiodarone HCl 200 mg 05/01/21 10:00 05/20/21 09:21 Amiodarone 200 Mg Tab PO 200 mg DAILY NAMAN Administration Amlodipine Besylate 10 mg 05/01/21 10:00 05/20/21 09:22 Amlodipine 10 Mg Tab PO 10 mg QDAY NAMAN Administration Lipase/Protease/Amylase 1 each 04/25/21 15:16 Lipase 10,500/Protease 25,000/Amylase 43,750 (Units) Dr Willingham FEEDTUBE PRN PRN For Clogged Feeding Tube Apixaban 5 mg 04/29/21 10:00 05/20/21 09:22 Apixaban 5 Mg Tab PO 5 mg Q12HR NAMAN Administration Protocol Aspirin 81 mg 05/13/21 10:00 05/20/21 09:21 Aspirin Ec 81 Mg Tab PO 81 mg QDAY NAMAN Administration Atorvastatin Calcium 40 mg 04/20/21 22:00 05/19/21 21:37 Atorvastatin 40 Mg Tab PO 40 mg QHS NAMAN Administration Bisacodyl 10 mg 04/20/21 18:41 Bisacodyl 10 Mg Rect Supp NE QDAY PRN Constipation Cyclobenzaprine HCl 10 mg 04/20/21 19:00 04/24/21 12:36 Cyclobenzaprine 10 Mg Tab PO 10 mg TID PRN Administration Muscle Spasm Dextrose 0 ml 04/27/21 04:03 Dextrose 10% *Hypoglycemia IV PRN PRN Hypoglycemia Protocol Folic Acid 1 mg 04/20/21 18:59 05/20/21 09:21 Folic Acid 1 Mg Tab PO 1 mg QDAY NAMAN Administration Hydralazine HCl 10 mg 04/30/21 05:49 05/01/21 06:02 Hydralazine 20 Mg/1 Ml Inj IV 10 mg Q6HR PRN Administration Hypertension Hydralazine HCl 100 mg 05/01/21 12:00 05/20/21 08:54 Hydralazine 100 Mg Tab PO 100 mg TID NAMAN Administration Hydromorphone HCl 0.5 mg 04/20/21 18:41 05/13/21 09:33 Hydromorphone 1 Mg/1 Ml Inj IV 0.5 mg Q6H PRN Administration Pain , Severe (7-10) Dextrose 1,000 mls @ 150 mls/hr 05/15/21 10:00 05/19/21 14:44 D5w IV 125 mls/hr DIRECT NAMAN Administration Insulin Human Isoph/Insulin Regular 22 unit 05/18/21 08:37 05/20/21 08:53 Insulin Nph/Regular 70/30 Inj SUB-Q 22 unit BIDDIAB NAMAN Administration Insulin Human Lispro 0 unit 04/27/21 04:00 05/20/21 06:21 Insulin Lispro 100 Unit/Ml SUB-Q 6 unit Q6HR NAMAN Administration Protocol Lansoprazole 30 mg 04/28/21 11:00 05/20/21 09:21 Lansoprazole 30 Mg Solutab FEEDTUBE 30 mg QDAY NAMAN Administration Lorazepam 2 mg 04/20/21 18:44 04/28/21 23:41 Lorazepam 2 Mg/Ml Vial IV 2 mg Q1HR PRN Administration [facility]-A[facility]il 8-15 Magnesium Hydroxide 30 ml 04/20/21 18:41 Magnesium Hydroxide (Mom) Oral Liqd Udc PO Q4H PRN Constipation Metoclopramide HCl 5 mg 05/15/21 09:00 Metoclopramide 10 Mg Tab PO Q6H PRN Nausea And Vomiting Metoprolol Tartrate 100 mg 04/29/21 12:00 05/20/21 09:21 Metoprolol Tartrate 50 Mg Tab PO 100 mg BID NAMAN Administration Ondansetron HCl 4 mg 04/20/21 18:41 Ondansetron 4 Mg/2 Ml Inj IV Q8H PRN Nausea And Vomiting Oxycodone/Acetaminophen 1 tab 04/20/21 18:41 04/28/21 18:05 Oxycodone /Acetaminophen 5-325mg Tab PO 1 tab Q12H PRN Administration Pain, Moderate (4-6) Promethazine HCl 25 mg 04/20/21 18:41 Promethazine 25 Mg Rect Supp NE Q6H PRN Nausea And Vomiting Simple Syrup 15 ml 04/25/21 15:16 Simple Syrup 15 Ml FEEDTUBE PRN PRN Hypoglycemia Simple Syrup 30 ml 04/25/21 15:16 Simple Syrup 15 Ml FEEDTUBE PRN PRN Hypoglycemia Sodium Bicarbonate 325 mg 04/25/21 15:16 Sodium Bicarbonate 325 Mg Tab FEEDTUBE PRN PRN For Clogged Feeding Tube Sodium Chloride 10 ml 04/20/21 18:41 05/18/21 09:29 Sodium Chloride 0.9% 10 Ml Flush Syringe IV 10 ml PRN PRN Administration LINE FLUSH
--- NOTE | 2021-05-20 14:05 | Progress Note ---
Assessment and Plan Assessment and plan: 61-year-old male w/ hx of CVH with LHP, nicotine dependence, EtOH dependence who presented with worsening left-sided weakness and difficulty speaking for 2 days. Code stroke was initiated. Patient was also discovered to have new onset A. fib with RVR. Currently stable, requiring feeding tube awaiting safe discharge. Patient is uninsured and will require total care at this time. Exploring hospice, NOK will need to agree to stopping use of PEG tube. #Acute/subacute CVA #Acute metabolic encephalopathy-Multifactorial -CT with extensive microvascular changes; MRI brain showed subacute multi- infarct cerebellar and brain stem / luba -US carotid <50% stenosis -stroke likely embolic from A fib; continue eliquis and metoprolol, amiodarone for rate control -TTE showed diastolic dysfunction; normal EF and no evidence of PFO Continue aspirin and lipitor Physical therapy/Occupational Therapy recommended subacute rehab, however the patient is uninsured #Dysphagia #Dysarthria -PEG tube placed on 04/28/2021 -tube feeds at 63cc/hr, will continue. Nutrition consulted; appreciate recs -meds per PEG tube #BHASKAR, vasomotor nephropathy -Improving -continue free water flushes via PEG tube -Renal ultrasound suggestive of medical renal disease -avoid nephrotoxins and renally dose medications -Nephrology consulted, assistance appreciated #Hypernatremia -Sodium 151 -continue free water flushes and LR 100 cc/hour -Nephrology consulted; appreciate recs -Continue to monitor with daily BMP #COVID-19 positive -PCR 04/27/2021 -supportive care #Type 2 diabetes mellitus -Hyperglycemia secondary to IV fluid use to treat hypernatremia -continue accuchecks and sliding scale -humulin increased to 22 units qday -continue ADA diet -goal glucose 140-180, will adjust insulin as needed #Atrial fibrillation with RVR, (new onset) -rate currently controlled -continue amiodarone 200 mg daily, metoprolol tartrate 100 mg twice daily, and eliquis 5 mg every 12 hours #Moderate protein calorie malnutrition -albumin 3.2 -nutrition consult, continue TF #Advanced care planning #Discharge planning -Legal next of kin Daughter Soniya Mabry ([phone]) still has not made a decision regarding PEG tube. Discussed with CM about contacting Adult Protective Services and starting the process for Guardianship for the patient. Family has contacted [facility] to evaluate the patient for inpatient hospice. -Time: +30 minutes Disposition Plan: Continue medical management Total Time Spent with Patient (Minutes): 45 min History Interval history: No acute events overnight. Hospitalist Physical - Constitutional Vitals: Temp Pulse Resp BP Pulse Ox 99.7 F H 73 20 133/53 95 05/20/21 11:15 05/20/21 11:15 05/20/21 11:15 05/20/21 11:15 05/20/21 11:15 General appearance: Present: no acute distress, well-nourished, other (Dysarthria, confused) - EENT Eyes: Present: PERRL, EOM intact ENT: hearing intact, clear oral mucosa - Neck Neck: Present: supple, normal ROM - Respiratory Respiratory effort: normal Respiratory: bilateral: CTA - Cardiovascular Rhythm: irregularly irregular Heart Sounds: Present: S1 & S2 - Extremities Extremities: no ischemia, pulses intact, pulses symmetrical, No edema, normal temperature, normal color Peripheral Pulses: within normal limits - Abdominal General gastrointestinal: soft, non-tender, non-distended, other (PEG tube in place) - Integumentary Integumentary: Present: clear, warm, dry - Psychiatric Psychiatric: other (Unable to fully assess given neurological status) - Neurologic Neurologic: other (Unable to fully assess given neurological status) - Allied Health Allied health notes reviewed: nursing HEART Score - HEART Score Troponin: Troponin T 0.011 ng/mL (0.00-0.029) 04/20/21 17:44 Results - Labs CBC & Chem 7: 05/15/21 04:38 05/20/21 05:38 Labs: Laboratory Last Values WBC 11.2 K/mm3 (4.5-11.0) H 05/15/21 04:38 RBC 5.54 M/mm3 (3.65-5.03) H 05/15/21 04:38 Hgb 15.4 gm/dl (11.8-15.2) H 05/15/21 04:38 Hct 49.4 % (35.5-45.6) H 05/15/21 04:38 MCV 89 fl (84-94) 05/15/21 04:38 MCH 28 pg (28-32) 05/15/21 04:38 MCHC 31 % (32-34) L 05/15/21 04:38 RDW 13.8 % (13.2-15.2) 05/15/21 04:38 Plt Count 267 K/mm3 (140-440) 05/15/21 04:38 Lymph % (Auto) 11.5 % (13.4-35.0) L 05/04/21 05:54 Clare % (Auto) 12.8 % (0.0-7.3) H 05/04/21 05:54 Eos % (Auto) 2.2 % (0.0-4.3) 05/04/21 05:54 Baso % (Auto) 0.6 % (0.0-1.8) 05/04/21 05:54 Lymph # (Auto) 1.3 K/mm3 (1.2-5.4) 05/04/21 05:54 Clare # (Auto) 1.5 K/mm3 (0.0-0.8) H 05/04/21 05:54 Eos # (Auto) 0.3 K/mm3 (0.0-0.4) 05/04/21 05:54 Baso # (Auto) 0.1 K/mm3 (0.0-0.1) 05/04/21 05:54 Seg Neutrophils % 72.9 % (40.0-70.0) H 05/04/21 05:54 Seg Neutrophils # 8.5 K/mm3 (1.8-7.7) H 05/04/21 05:54 PT 14.1 Sec. (12.2-14.9) 04/28/21 13:53 INR 0.98 (0.87-1.13) 04/28/21 13:53 APTT 31.8 Sec. (24.2-36.6) 04/28/21 13:53 Thrombin Time 16.2 Sec. (15.1-19.6) 04/20/21 17:44 D-Dimer 894.94 ng/mlDDU (0-234) H 04/28/21 09:29 Sodium 151 mmol/L (137-145) H 05/20/21 05:38 Potassium 4.6 mmol/L (3.6-5.0) 05/20/21 05:38 Chloride 115.0 mmol/L (98-107) H 05/20/21 05:38 Carbon Dioxide 20 mmol/L (22-30) L 05/20/21 05:38 Anion Gap 21 mmol/L 05/20/21 05:38 BUN 43 mg/dL (9-20) H 05/20/21 05:38 Creatinine 1.7 mg/dL (0.8-1.3) H 05/20/21 05:38 Estimated GFR 50 ml/min 05/20/21 05:38 BUN/Creatinine Ratio 25 % 05/20/21 05:38 Glucose 296 mg/dL (75-100) H 05/20/21 05:38 POC Glucose 260 mg/dL (70-105) H 05/20/21 11:13 Calcium 8.6 mg/dL (8.4-10.2) 05/20/21 05:38 Magnesium 1.90 mg/dL (1.7-2.3) 04/20/21 17:44 Ferritin 1157.0 ng/mL (30.0-300.0) H 04/28/21 09:29 Total Bilirubin 0.20 mg/dL (0.1-1.2) 05/06/21 05:32 AST 25 units/L (5-40) 05/06/21 05:32 ALT 64 units/L (7-56) H 05/06/21 05:32 Alkaline Phosphatase 168 units/L (35-129) H 05/06/21 05:32 Lactate Dehydrogenase 287 units/L (91-180) H 04/28/21 09:29 Total Creatine Kinase 79 units/L (55-170) 04/20/21 17:44 Total Creatine Kinase 81 units/L (55-170) 04/20/21 17:44 CK-MB (CK-2) 2.1 ng/mL (0.0-4.0) 04/20/21 17:44 CK-MB (CK-2) Rel Index 2.6 (0-4) 04/20/21 17:44 Troponin T 0.011 ng/mL (0.00-0.029) 04/20/21 17:44 C-Reactive Protein 15.40 mg/dL (0.00-1.30) H 04/28/21 09:29 Total Protein 7.4 g/dL (6.3-8.2) 05/06/21 05:32 Albumin 3.2 g/dL (3.9-5) L 05/06/21 05:32 Albumin/Globulin Ratio 0.8 % 05/06/21 05:32 TSH 1.040 mlU/mL (0.270-4.200) 04/20/21 19:42 Free T4 1.16 ng/dL (0.76-1.46) 04/20/21 19:42 Urine Color Saira (Yellow) 04/26/21 Unknown Urine Turbidity Cloudy (Clear) 04/26/21 Unknown Urine pH 5.0 (5.0-7.0) 04/26/21 Unknown Ur Specific [place] 1.020 (1.003-1.030) 04/26/21 Unknown Urine Protein 100 mg/dl mg/dL (Negative) 04/26/21 Unknown Urine Glucose (UA) >=500 mg/dL (Negative) 04/26/21 Unknown Urine Ketones Neg mg/dL (Negative) 04/26/21 Unknown Urine Blood Mod (Negative) 04/26/21 Unknown Urine Nitrite Neg (Negative) 04/26/21 Unknown Urine Bilirubin Neg (Negative) 04/26/21 Unknown Urine Urobilinogen 2.0 mg/dL (<2.0) 04/26/21 Unknown Ur Leukocyte Esterase Neg (Negative) 04/26/21 Unknown Urine WBC (Auto) 1.0 /HPF (0.0-6.0) 04/20/21 18:19 Urine RBC (Auto) 3.0 /HPF (0.0-6.0) 04/20/21 18:19 U Epithel Cells (Auto) < 1.0 /HPF (0-13.0) 04/20/21 18:19 Hyaline Casts 5 /LPF 04/20/21 18:19 Urine Mucus Few /HPF 04/20/21 18:19 Plasma/Serum Alcohol < 0.01 % (0-0.07) 04/20/21 17:44 Coronavirus (PCR) Negative (Negative) 05/09/21 09:20 Microbiology: Microbiology 05/20/21 08:28 Peripheral/Venous Blood Culture - Preliminary Culture in Progress 05/20/21 08:28 Peripheral/Venous Blood Culture - Preliminary Culture in Progress Bravo/IV: Voiding Method Indwelling Catheter Active Medications - Current Medications Current Medications: Generic Name Dose Route Start Last Admin Trade Name Freq PRN Reason Stop Dose Admin Albuterol 2.5 mg 04/20/21 18:41 Albuterol 2.5 Mg/3 Ml Nebu IH Q3HRT PRN Shortness Of Breath Amiodarone HCl 200 mg 05/01/21 10:00 05/20/21 09:21 Amiodarone 200 Mg Tab PO 200 mg DAILY NAMAN Administration Amlodipine Besylate 10 mg 05/01/21 10:00 05/20/21 09:22 Amlodipine 10 Mg Tab PO 10 mg QDAY NAMAN Administration Lipase/Protease/Amylase 1 each 04/25/21 15:16 Lipase 10,500/Protease 25,000/Amylase 43,750 (Units) Dr Willingham FEEDTUBE PRN PRN For Clogged Feeding Tube Apixaban 5 mg 04/29/21 10:00 05/20/21 09:22 Apixaban 5 Mg Tab PO 5 mg Q12HR NAMAN Administration Protocol Aspirin 81 mg 05/13/21 10:00 05/20/21 09:21 Aspirin Ec 81 Mg Tab PO 81 mg QDAY NAMAN Administration Atorvastatin Calcium 40 mg 04/20/21 22:00 05/19/21 21:37 Atorvastatin 40 Mg Tab PO 40 mg QHS NAMAN Administration Bisacodyl 10 mg 04/20/21 18:41 Bisacodyl 10 Mg Rect Supp [place] QDAY PRN Constipation Cyclobenzaprine HCl 10 mg 04/20/21 19:00 04/24/21 12:36 Cyclobenzaprine 10 Mg Tab PO 10 mg TID PRN Administration Muscle Spasm Dextrose 0 ml 04/27/21 04:03 Dextrose 10% *Hypoglycemia IV PRN PRN Hypoglycemia Protocol Folic Acid 1 mg 04/20/21 18:59 05/20/21 09:21 Folic Acid 1 Mg Tab PO 1 mg QDAY NAMAN Administration Hydralazine HCl 10 mg 04/30/21 05:49 05/01/21 06:02 Hydralazine 20 Mg/1 Ml Inj IV 10 mg Q6HR PRN Administration Hypertension Hydralazine HCl 100 mg 05/01/21 12:00 05/20/21 08:54 Hydralazine 100 Mg Tab PO 100 mg TID NAMAN Administration Hydromorphone HCl 0.5 mg 04/20/21 18:41 05/13/21 09:33 Hydromorphone 1 Mg/1 Ml Inj IV 0.5 mg Q6H PRN Administration Pain , Severe (7-10) Dextrose 1,000 mls @ 150 mls/hr 05/15/21 10:00 05/19/21 14:44 D5w IV 125 mls/hr DIRECT NAMAN Administration Insulin Human Isoph/Insulin Regular 22 unit 05/18/21 08:37 05/20/21 08:53 Insulin Nph/Regular 70/30 Inj SUB-Q 22 unit BIDDIAB NAMAN Administration Insulin Human Lispro 0 unit 04/27/21 04:00 05/20/21 06:21 Insulin Lispro 100 Unit/Ml SUB-Q 6 unit Q6HR NAMAN Administration Protocol Lansoprazole 30 mg 04/28/21 11:00 05/20/21 09:21 Lansoprazole 30 Mg Solutab FEEDTUBE 30 mg QDAY NAMAN Administration Lorazepam 2 mg 04/20/21 18:44 04/28/21 23:41 Lorazepam 2 Mg/Ml Vial IV 2 mg Q1HR PRN Administration Ana 8-15 Magnesium Hydroxide 30 ml 04/20/21 18:41 Magnesium Hydroxide (Mom) Oral Liqd Udc PO Q4H PRN Constipation Metoclopramide HCl 5 mg 05/15/21 09:00 Metoclopramide 10 Mg Tab PO Q6H PRN Nausea And Vomiting Metoprolol Tartrate 100 mg 04/29/21 12:00 05/20/21 09:21 Metoprolol Tartrate 50 Mg Tab PO 100 mg BID NAMAN Administration Ondansetron HCl 4 mg 04/20/21 18:41 Ondansetron 4 Mg/2 Ml Inj IV Q8H PRN Nausea And Vomiting Oxycodone/Acetaminophen 1 tab 04/20/21 18:41 04/28/21 18:05 Oxycodone /Acetaminophen 5-325mg Tab PO 1 tab Q12H PRN Administration Pain, Moderate (4-6) Promethazine HCl 25 mg 04/20/21 18:41 Promethazine 25 Mg Rect Supp MN Q6H PRN Nausea And Vomiting Simple Syrup 15 ml 04/25/21 15:16 Simple Syrup 15 Ml FEEDTUBE PRN PRN Hypoglycemia Simple Syrup 30 ml 04/25/21 15:16 Simple Syrup 15 Ml FEEDTUBE PRN PRN Hypoglycemia Sodium Bicarbonate 325 mg 04/25/21 15:16 Sodium Bicarbonate 325 Mg Tab FEEDTUBE PRN PRN For Clogged Feeding Tube Sodium Chloride 10 ml 04/20/21 18:41 05/18/21 09:29 Sodium Chloride 0.9% 10 Ml Flush Syringe IV 10 ml PRN PRN Administration LINE FLUSH Nutrition/Malnutrition Assess - Dietary Evaluation Nutrition/Malnutrition Findings: Nutrition Notes Start: 04/23/21 12:36 Freq: Status: Active Protocol: Document 05/14/21 12:46 ANNIKA (Rec: 05/14/21 12:55 ANNIKA [id number]) Nutrition Notes Initial or Follow up Brief Note Current Diet TF-Glucerna 1.2 Maurice @ 63 ml/hr (since D 05/14). Height 6 ft 3 in Weight 79.5 kg [place] Body Weight (kg) 89.09 BMI 21.9 Weight change and time frame No body weight change reported in 20 days. Subjective/Other Information RD consult for change formula back to Glucerna 1.2 Maurice. Percent of energy/protein needs met: Prescribed Glucerna 1.2 Maurice @ 63 ml/hr provides for energy/ protein needs (1,819 Kcal/91 g ) during LOS, 90% Kcal; 100% AA. #1 Nutrition Diagnosis Inadequate oral intake Diagnosis Progress(for reassessment Continues documentation) Is patient on ventilator? No Is Patient Ambulatory and/or Out of Bed No REE-([place]-[facility] Jeor-confined to bed) 2020.748 Calculation Used for Recommendations [facility] Additional Notes Protein: 1-1.2 g/Kg; 80-95 g/ day. Fluids: 1 ml/Kcal, or as per MD. Nutrition Intervention Nutrition Support: Change back to Glucerna 1.2 Maurice @ 63 ml/hr. Flush: 130 ml water Q 4 hr, or as per MD. Kcal 1,819 Protein (gm) 91 Carbohydrates (gm) 174 Fat (gm) 91 Fluid (mL) 1,220 Fiber (gm) 24 % RDI: 90% Kcal; 100% AA. Goal #1 Provide at least 75% of energy /protein needs through Enteral Feeding during LOS. Goal #2 Maintain body weight within +/ -3% of admission body weight during LOS. Follow-Up By: 05/20/21 Additional Comments Continue monitoring TF tolerance and BM.
[2021-05-20] MEDS ORDERED: VANCOMYCIN 1,250 MG in SODIUM CHLORIDE 0.9% 500 ML 500 ML IV ONE (17:59)
[2021-05-20] MEDS ORDERED: VANCOMYCIN PHARMACY TO DOSE IV SCH (18:00)
[2021-05-20] MEDS ORDERED: ACETAMINOPHEN 325 MG TAB PO PRN ×2 (18:03→18:10)
[2021-05-20] MEDS ORDERED: VANCOMYCIN 1,500 MG in SODIUM CHLORIDE 0.9% 500 ML 500 ML IV ONE (18:30)
[2021-05-20] MEDS: VANCOMYCIN 1,500 MG in SODIUM CHLORIDE 0.9% 500 ML 500 ML IV SCH ×2 (20:21→20:33)
[2021-05-20] MEDS: CEFEPIME/NS 1 GM/100 ML 1 GM/100 ML BAG IV SCH (20:29)
[2021-05-20] MEDS: ACETAMINOPHEN 325 MG/10.15 ML ORAL LIQD UNIT DOSE PO PRN (23:11)
[2021-05-21] MEDS ORDERED: SODIUM CHLORIDE 0.9% 50 ML ONE (02:07)
[2021-05-21] MEDS: CEFEPIME/NS 1 GM/100 ML 1 GM/100 ML BAG IV SCH (02:14)
[2021-05-21] MEDS: FREE WATER PO SCH ×5 (02:15→22:49)
[2021-05-21] MEDS ORDERED: ACETAMINOPHEN 325 MG/10.15 ML ORAL LIQD UNIT DOSE FEEDTUBE ONE (04:15)
[2021-05-21] MEDS: INSULIN LISPRO 100 UNIT/ML SUB-Q SCH ×4 (05:54→18:06)
[2021-05-21] MEDS: INSULIN NPH/REGULAR 70/30 INJ SUB-Q SCH ×2 (08:26→17:39)
[2021-05-21] MEDS: hydrALAZINE 100 MG TAB PO SCH ×3 (09:00→22:49)
[2021-05-21 09:13] LABS: Calcium 8.3 mg/dL (8.4-10.2)
--- NOTE | 2021-05-21 09:31 | Progress Note ---
Assessment and Plan Impression: * Acute kidney injury secondary to prerenal azotemia due to dehydration * Hypernatremia secondary to dehydration * Acute CVA with left hemiparesis * Atrial fibrillation * HFrEF --TTE: EF 45 to 50%. Hypokinesis of basal inferior septal wall. Hypokinesis inferior wall. Right ventricle systolic function is normal. Bubble study did not demonstrate PFO (Apr 20) * DM Plan: * Na stable at 150 * However creatinine 1.7->3.6, may be false reading? Recheck BMP, but if creatinine higher, likely need to restart IVF as tolerated * Continue free H2O with TF, may need to increase if renal indices continue to trend as above (appears to be on 130cc q4hrs) * Glycemic control per primary team * Rate control/anticoagulation per cardiology * Dose medications for renal function * Avoid potential nephrotoxins * Daily BMP Subjective Date of service: 05/21/21 Principal diagnosis: Acute CVA Interval history: No acute issues noted, seen in room, patient resting but is on facemask, Off IVF, continues on tube Feeds Objective - Exam Narrative Exam: General appearance: well-developed, well-nourished EENT: ATNC Respiratory: Present: Clear to Ascultation Cardiology: regular, S1S2 Gastrointestinal: normal, no tenderness, no distended Neurologic: other (unresponsive) Skin: intact - Vital Signs Vital signs: Vital Signs - 12hr 05/20/21 05/20/21 05/20/21 22:00 22:33 23:07 Temperature 101.4 F H Pulse Rate 91 H 91 H Respiratory 21 22 Rate Blood Pressure 109/70 109/70 Blood Pressure [Left] O2 Sat by Pulse 98 100 Oximetry 05/20/21 05/21/21 05/21/21 23:11 00:11 03:57 Temperature 101.2 F H Pulse Rate 90 Respiratory 20 20 18 Rate Blood Pressure 126/81 Blood Pressure [Left] O2 Sat by Pulse 99 Oximetry 05/21/21 05/21/21 05/21/21 04:16 05:16 06:00 Temperature Pulse Rate 122 H Respiratory 19 20 Rate Blood Pressure Blood Pressure [Left] O2 Sat by Pulse Oximetry 05/21/21 07:55 Temperature 99.2 F Pulse Rate 110 H Respiratory 16 Rate Blood Pressure Blood Pressure 91/47 [Left] O2 Sat by Pulse 100 Oximetry - Lab 05/15/21 04:38 02/23/22 07:48 Most recent lab results Calcium 8.3 mg/dL (8.4-10.2) L 05/21/21 07:48 Magnesium 1.90 mg/dL (1.7-2.3) 04/20/21 17:44 Medications & Allergies - Medications Allergies/Adverse Reactions: Allergies No Known Allergies Allergy (Verified 08/24/20 14:13) Home Medications: Home Medications Medication Instructions Recorded Confirmed Last Taken Type No Known Home Medications [No 04/30/21 04/30/21 Unknown History Reported Home Medications] Active Medications: Generic Name Dose Route Start Last Admin Trade Name Freq PRN Reason Stop Dose Admin Acetaminophen 650 mg 05/20/21 20:45 05/20/21 23:11 Acetaminophen 325 Mg/10.15 Ml Oral Liqd Unit Dose PO 650 mg Q6H PRN Administration Fever >101 Albuterol 2.5 mg 04/20/21 18:41 Albuterol 2.5 Mg/3 Ml Nebu IH Q3HRT PRN Shortness Of Breath Amiodarone HCl 200 mg 05/01/21 10:00 05/20/21 09:21 Amiodarone 200 Mg Tab PO 200 mg DAILY NAMAN Administration Amlodipine Besylate 10 mg 05/01/21 10:00 05/20/21 09:22 Amlodipine 10 Mg Tab PO 10 mg QDAY NAMAN Administration Lipase/Protease/Amylase 1 each 04/25/21 15:16 Lipase 10,500/Protease 25,000/Amylase 43,750 (Units) Dr Willingham FEEDTUBE PRN PRN For Clogged Feeding Tube Apixaban 5 mg 04/29/21 10:00 05/20/21 23:05 Apixaban 5 Mg Tab PO 5 mg Q12HR NAMAN Administration Protocol Aspirin 81 mg 05/13/21 10:00 05/20/21 09:21 Aspirin Ec 81 Mg Tab PO 81 mg QDAY NAMAN Administration Atorvastatin Calcium 40 mg 04/20/21 22:00 05/20/21 23:05 Atorvastatin 40 Mg Tab PO 40 mg QHS NAMAN Administration Bisacodyl 10 mg 04/20/21 18:41 Bisacodyl 10 Mg Rect Supp [place] QDAY PRN Constipation Cyclobenzaprine HCl 10 mg 04/20/21 19:00 04/24/21 12:36 Cyclobenzaprine 10 Mg Tab PO 10 mg TID PRN Administration Muscle Spasm Dextrose 0 ml 04/27/21 04:03 Dextrose 10% *Hypoglycemia IV PRN PRN Hypoglycemia Protocol Folic Acid 1 mg 04/20/21 18:59 05/20/21 09:21 Folic Acid 1 Mg Tab PO 1 mg QDAY NAMAN Administration Hydralazine HCl 10 mg 04/30/21 05:49 05/01/21 06:02 Hydralazine 20 Mg/1 Ml Inj IV 10 mg Q6HR PRN Administration Hypertension Hydralazine HCl 100 mg 05/01/21 12:00 05/20/21 20:25 Hydralazine 100 Mg Tab PO Not Given TID NAMAN Hydromorphone HCl 0.5 mg 04/20/21 18:41 05/13/21 09:33 Hydromorphone 1 Mg/1 Ml Inj IV 0.5 mg Q6H PRN Administration Pain , Severe (7-10) Dextrose 1,000 mls @ 150 mls/hr 05/15/21 10:00 05/19/21 14:44 D5w IV 125 mls/hr DIRECT NAMAN Administration Cefepime HCl 1 gm in 100 mls @ 200 mls/hr 05/20/21 18:00 05/21/21 02:14 Cefepime/Ns 1 Gm/100 Ml IV 200 mls/hr Q8H NAMAN Administration Protocol Vancomycin HCl 1,250 mg/ 275 mls @ 166.667 mls/hr 05/21/21 18:30 Sodium Chloride IV Q24H NAMAN Insulin Human Isoph/Insulin Regular 22 unit 05/18/21 08:37 05/20/21 17:21 Insulin Nph/Regular 70/30 Inj SUB-Q Not Given [facility] Insulin Human Lispro 0 unit 04/27/21 04:00 05/21/21 05:54 Insulin Lispro 100 Unit/Ml SUB-Q 8 unit Q6HR NAMAN Administration Protocol Lansoprazole 30 mg 04/28/21 11:00 05/20/21 09:21 Lansoprazole 30 Mg Solutab FEEDTUBE 30 mg QDAY ANMAN Administration Lorazepam 2 mg 04/20/21 18:44 04/28/21 23:41 Lorazepam 2 Mg/Ml Vial IV 2 mg Q1HR PRN Administration GUALBERTO-Akhil 8-15 Magnesium Hydroxide 30 ml 04/20/21 18:41 Magnesium Hydroxide (Mom) Oral Liqd Udc PO Q4H PRN Constipation Metoclopramide HCl 5 mg 05/15/21 09:00 Metoclopramide 10 Mg Tab PO Q6H PRN Nausea And Vomiting Metoprolol Tartrate 100 mg 04/29/21 12:00 05/20/21 23:07 Metoprolol Tartrate 50 Mg Tab PO Not Given BID NAMAN Ondansetron HCl 4 mg 04/20/21 18:41 Ondansetron 4 Mg/2 Ml Inj IV Q8H PRN Nausea And Vomiting Oxycodone/Acetaminophen 1 tab 04/20/21 18:41 04/28/21 18:05 Oxycodone /Acetaminophen 5-325mg Tab PO 1 tab Q12H PRN Administration Pain, Moderate (4-6) Promethazine HCl 25 mg 04/20/21 18:41 Promethazine 25 Mg Rect Supp [place] Q6H PRN Nausea And Vomiting Simple Syrup 15 ml 04/25/21 15:16 Simple Syrup 15 Ml FEEDTUBE PRN PRN Hypoglycemia Simple Syrup 30 ml 04/25/21 15:16 Simple Syrup 15 Ml FEEDTUBE PRN PRN Hypoglycemia Sodium Bicarbonate 325 mg 04/25/21 15:16 Sodium Bicarbonate 325 Mg Tab FEEDTUBE PRN PRN For Clogged Feeding Tube Sodium Chloride 10 ml 04/20/21 18:41 05/20/21 23:05 Sodium Chloride 0.9% 10 Ml Flush Syringe IV 10 ml PRN PRN Administration LINE FLUSH
--- NOTE | 2021-05-21 09:42 | Consultation ---
History of Present Illness Consult date: 05/21/21 Requesting physician: JOHN MARQUEZ Chief complaint: Sacral decubitus stage II - History of present illness History of present illness: This is a 61-year-old -[place]ish male patient with multiple medical problems. He is noted to have a sacral decubitus he is bedridden at this time. Wound exam at this time shows a clean base superficial ulcer into subcutaneous tissue only measuring 3 x 1 and half centimeters. Recommend continue local wound care. Patient is on Eliquis this can continue as local wound care seems to be the only thing needed at this time. Past History Past Medical History: other (See HPI) Past Surgical History: appendectomy Social history: smoking, alcohol abuse Family history: hypertension Medications and Allergies Allergies Allergy/AdvReac Type Severity Reaction Status Date / Time No Known Allergies Allergy Verified 08/24/20 14:13 Home Medications Medication Instructions Recorded Confirmed Last Taken Type No Known Home Medications [No 04/30/21 04/30/21 Unknown History Reported Home Medications] Active Meds: Active Medications Acetaminophen (Acetaminophen 325 Mg/10.15 Ml Oral Liqd Unit Dose) 650 mg PO Q6H PRN PRN Reason: Fever >101 Last Admin: 05/20/21 23:11 Dose: 650 mg Albuterol (Albuterol 2.5 Mg/3 Ml Nebu) 2.5 mg IH Q3HRT PRN PRN Reason: Shortness Of Breath Amiodarone HCl (Amiodarone 200 Mg Tab) 200 mg PO DAILY [facility] Last Admin: 05/20/21 09:21 Dose: 200 mg Amlodipine Besylate (Amlodipine 10 Mg Tab) 10 mg PO QDAY [facility] Last Admin: 05/20/21 09:22 Dose: 10 mg Lipase/Protease/Amylase (Lipase 10,500/Protease 25,000/Amylase 43,750 (Units) Dr Willingham) 1 each FEEDTUBE PRN PRN PRN Reason: For Clogged Feeding Tube Apixaban (Apixaban 5 Mg Tab) 5 mg PO Q12HR [facility]; Protocol Last Admin: 05/20/21 23:05 Dose: 5 mg Aspirin (Aspirin Ec 81 Mg Tab) 81 mg PO QDAY [facility] Last Admin: 05/20/21 09:21 Dose: 81 mg Atorvastatin Calcium (Atorvastatin 40 Mg Tab) 40 mg PO QHS [facility] Last Admin: 05/20/21 23:05 Dose: 40 mg Bisacodyl (Bisacodyl 10 Mg Rect Supp) 10 mg [place] QDAY PRN PRN Reason: Constipation Cyclobenzaprine HCl (Cyclobenzaprine 10 Mg Tab) 10 mg PO TID PRN PRN Reason: Muscle Spasm Last Admin: 04/24/21 12:36 Dose: 10 mg Dextrose (Dextrose 10% *Hypoglycemia) 0 ml IV PRN PRN; Protocol PRN Reason: Hypoglycemia Folic Acid (Folic Acid 1 Mg Tab) 1 mg PO QDAY [facility] Last Admin: 05/20/21 09:21 Dose: 1 mg Hydralazine HCl (Hydralazine 20 Mg/1 Ml Inj) 10 mg IV Q6HR PRN PRN Reason: Hypertension Last Admin: 05/01/21 06:02 Dose: 10 mg Hydralazine HCl (Hydralazine 100 Mg Tab) 100 mg PO TID [facility] Last Admin: 05/20/21 20:25 Dose: Not Given Hydromorphone HCl (Hydromorphone 1 Mg/1 Ml Inj) 0.5 mg IV Q6H PRN PRN Reason: Pain , Severe (7-10) Last Admin: 05/13/21 09:33 Dose: 0.5 mg Dextrose (D5w) 1,000 mls @ 150 mls/hr IV DIRECT [facility] Last Admin: 05/19/21 14:44 Dose: 125 mls/hr Cefepime HCl (Cefepime/Ns 1 Gm/100 Ml) 1 gm in 100 mls @ 200 mls/hr IV Q8H [facility]; Protocol Last Admin: 05/21/21 02:14 Dose: 200 mls/hr Vancomycin HCl 1,250 mg/ (Sodium Chloride) 275 mls @ 166.667 mls/hr IV Q24H [facility] Insulin Human Isoph/Insulin Regular (Insulin Nph/Regular 70/30 Inj) 22 unit S UB-Q BIDDIAB [facility] Last Admin: 05/20/21 17:21 Dose: Not Given Insulin Human Lispro (Insulin Lispro 100 Unit/Ml) 0 unit SUB-Q Q6HR [facility]; Protocol Last Admin: 05/21/21 05:54 Dose: 8 unit Lansoprazole (Lansoprazole 30 Mg Solutab) 30 mg FEEDTUBE QDAY [facility] Last Admin: 05/20/21 09:21 Dose: 30 mg Lorazepam (Lorazepam 2 Mg/Ml Vial) 2 mg IV Q1HR PRN PRN Reason: CIWA-Ar 8-15 Last Admin: 04/28/21 23:41 Dose: 2 mg Magnesium Hydroxide (Magnesium Hydroxide (Mom) Oral Liqd Udc) 30 ml PO Q4H PRN PRN Reason: Constipation Metoclopramide HCl (Metoclopramide 10 Mg Tab) 5 mg PO Q6H PRN PRN Reason: Nausea And Vomiting Metoprolol Tartrate (Metoprolol Tartrate 50 Mg Tab) 100 mg PO BID NAMAN Last Admin: 05/20/21 23:07 Dose: Not Given Ondansetron HCl (Ondansetron 4 Mg/2 Ml Inj) 4 mg IV Q8H PRN PRN Reason: Nausea And Vomiting Oxycodone/Acetaminophen (Oxycodone /Acetaminophen 5-325mg Tab) 1 tab PO Q12H PRN PRN Reason: Pain, Moderate (4-6) Last Admin: 04/28/21 18:05 Dose: 1 tab Promethazine HCl (Promethazine 25 Mg Rect Supp) 25 mg [place] Q6H PRN PRN Reason: Nausea And Vomiting Simple Syrup (Simple Syrup 15 Ml) 15 ml FEEDTUBE PRN PRN PRN Reason: Hypoglycemia Simple Syrup (Simple Syrup 15 Ml) 30 ml FEEDTUBE PRN PRN PRN Reason: Hypoglycemia Sodium Bicarbonate (Sodium Bicarbonate 325 Mg Tab) 325 mg FEEDTUBE PRN PRN PRN Reason: For Clogged Feeding Tube Sodium Chloride (Sodium Chloride 0.9% 10 Ml Flush Syringe) 10 ml IV PRN PRN PRN Reason: LINE FLUSH Last Admin: 05/20/21 23:05 Dose: 10 ml Exam Vital Signs Temp Pulse Resp BP Pulse Ox 98.0 F 135 H 16 195/112 98 04/20/21 16:33 04/20/21 16:33 04/20/21 16:33 04/20/21 16:33 04/20/21 16:33 - Integumentary no rash, other (Stage II sacral decubitus 1/2 x 3 cm clean base no need for debridement.) Results - Labs 05/15/21 04:38 05/21/21 07:48 Abnormal lab results 05/20/21 05/20/21 05/21/21 Range/Units 11:13 16:46 00:15 Sodium (137-145) mmol/L Chloride (98-107) mmol/L Carbon Dioxide (22-30) mmol/L BUN (9-20) mg/dL Creatinine (0.8-1.3) mg/dL Glucose (75-100) mg/dL POC Glucose 260 H 152 H 253 H (70-105) mg/dL Calcium (8.4-10.2) mg/dL 05/21/21 05/21/21 Range/Units 05:43 07:48 Sodium 150 H (137-145) mmol/L Chloride 112.1 H (98-107) mmol/L Carbon Dioxide 19 L (22-30) mmol/L BUN 84 H (9-20) mg/dL Creatinine 3.6 H D (0.8-1.3) mg/dL Glucose 351 H (75-100) mg/dL POC Glucose 310 H (70-105) mg/dL Calcium 8.3 L (8.4-10.2) mg/dL Diabetes panel 05/21/21 Range/Units 07:48 Sodium 150 H (137-145) mmol/L Potassium 4.8 (3.6-5.0) mmol/L Chloride 112.1 H (98-107) mmol/L Carbon Dioxide 19 L (22-30) mmol/L BUN 84 H (9-20) mg/dL Creatinine 3.6 H D (0.8-1.3) mg/dL Glucose 351 H (75-100) mg/dL Calcium 8.3 L (8.4-10.2) mg/dL Calcium panel 05/21/21 Range/Units 07:48 Calcium 8.3 L (8.4-10.2) mg/dL Pituitary panel 05/21/21 Range/Units 07:48 Sodium 150 H (137-145) mmol/L Potassium 4.8 (3.6-5.0) mmol/L Chloride 112.1 H (98-107) mmol/L Carbon Dioxide 19 L (22-30) mmol/L BUN 84 H (9-20) mg/dL Creatinine 3.6 H D (0.8-1.3) mg/dL Glucose 351 H (75-100) mg/dL Calcium 8.3 L (8.4-10.2) mg/dL Adrenal panel 05/21/21 Range/Units 07:48 Sodium 150 H (137-145) mmol/L Potassium 4.8 (3.6-5.0) mmol/L Chloride 112.1 H (98-107) mmol/L Carbon Dioxide 19 L (22-30) mmol/L BUN 84 H (9-20) mg/dL Creatinine 3.6 H D (0.8-1.3) mg/dL Glucose 351 H (75-100) mg/dL Calcium 8.3 L (8.4-10.2) mg/dL Assessment and Plan his is a 61-year-old -Swedish male patient with multiple medical problems. He is noted to have a sacral decubitus he is bedridden at this time. Wound exam at this time shows a clean base superficial ulcer into subcutaneous tissue only measuring 3 x 1 and half centimeters. Recommend continue local wound care. Patient is on Eliquis this can continue as local wound care seems to be the only thing needed at this time.
[2021-05-21] MEDS: ASPIRIN EC 81 MG TAB PO SCH (10:26)
[2021-05-21] MEDS: AMIODARONE 200 MG TAB PO SCH (10:26)
[2021-05-21] MEDS: LANSOPRAZOLE 30 MG SOLUTAB FEEDTUBE SCH (10:27)
[2021-05-21] MEDS: APIXABAN 5 MG TAB PO SCH ×2 (10:27→22:48)
[2021-05-21] MEDS: FOLIC ACID 1 MG TAB PO SCH (10:27)
[2021-05-21] MEDS: amLODIPine 10 MG TAB PO SCH (10:27)
--- NOTE | 2021-05-21 10:27 | XRay Report ---
CHEST 1 VIEW INDICATION: Assess for possible PNA. COMPARISON: 04/20/2021 FINDINGS: SUPPORT DEVICES: None. HEART: Within normal limits. LUNGS/PLEURA: Mild patchy left greater than right basilar airspace disease with otherwise clear lungs . ADDITIONAL FINDINGS: None. IMPRESSION: 1. Lung findings as above. Signer Name: Ryan Meeks MD Signed: 05/21/2021 9:35 AM Workstation Name: [id number]
[2021-05-21] MEDS: METOPROLOL TARTRATE 50 MG TAB PO SCH ×2 (10:28→22:48)
[2021-05-21 13:03] LABS: Calcium 8.7 mg/dL (8.4-10.2)
--- NOTE | 2021-05-21 15:23 | Cat Scan Report ---
CT CHEST, ABDOMEN, AND PELVIS WITHOUT CONTRAST INDICATION / CLINICAL INFORMATION: Assess for source of infection. TECHNIQUE: Axial CT images were obtained through the chest, abdomen, and pelvis without contrast. All CT scans at this location are performed using CT dose reduction for ALARA by means of automated expo sure control. COMPARISON: None available. FINDINGS: CHEST: HEART: No significant abnormality. CORONARY ARTERY CALCIFICATION: Mild. THORACIC AORTA: No significant abnormality. MEDIASTINUM / ALFREDO: No significant abnormality. PLEURA: No pleural effusion. No pneumothorax. LUNGS: Scattered groundglass opacities are noted throughout the bilateral lungs. ADDITIONAL CHEST FINDINGS: None. ABDOMEN/PELVIS: AORTA / ARTERIES: Mild atherosclerotic calcification without acute abnormality. IVC / VEINS: No significant abnormality. LYMPH NODES: No significant adenopathy. COLON: High density stool throughout the colon. APPENDIX: Not visualized. STOMACH / SMALL BOWEL: Gastrostomy tube noted terminating within the stomach. PERITONEUM: No free fluid. No free air. No fluid collection. LIVER: No significant abnormality. GALLBLADDER: No significant abnormality. BILE DUCTS: No significant abnormality. PANCREAS: No significant abnormality. SPLEEN: No significant abnormality. ADRENALS: There is a 1.8 cm indeterminate lesion involving the left adrenal gland. RIGHT KIDNEY / URETER: No significant abnormality. LEFT KIDNEY / URETER: No significant abnormality. URINARY BLADDER: No significant abnormality. REPRODUCTIVE ORGANS: No significant abnormality. SKELETAL SYSTEM: Scattered degeneration. ADDITIONAL FINDINGS: None. IMPRESSION: 1. Scattered groundglass opacities in the lungs most fitting with viral pneumonia. 2. There is a 1.8 cm indeterminate lesion involving the left adrenal gland most likely representing a drenal adenoma. 3. Other findings as above. Signer Name: Troy Sotomayor DO Signed: 05/21/2021 3:13 PM Workstation Name: [id number]
--- NOTE | 2021-05-21 15:52 | Progress Note ---
Assessment and Plan Assessment and plan: 61-year-old male w/ hx of CVH with LHP, nicotine dependence, EtOH dependence who presented with worsening left-sided weakness and difficulty speaking for 2 days. Code stroke was initiated. Patient was also discovered to have new onset A. fib with RVR. Currently stable, requiring feeding tube awaiting safe discharge. Patient is uninsured and will require total care at this time. Exploring hospice, NOK will need to agree to stopping use of PEG tube. #Acute hypoxic respiratory failure Concern for viral pneumonia (possible Covid infection) Currently on 4 L nasal cannula (wean down from Ventimask) CT chest, abdomen, pelvis without contrast (05/21/2021) revealing bilateral pulmonary infiltrates Ordering airborne and droplet precaution Ordering influenza a/B PCR and coronavirus PCR #Acute/subacute CVA #Acute metabolic encephalopathy-Multifactorial -CT with extensive microvascular changes; MRI brain showed subacute multi- infarct cerebellar and brain stem / luba -US carotid <50% stenosis -stroke likely embolic from A fib; continue eliquis and metoprolol, amiodarone for rate control -TTE showed diastolic dysfunction; normal EF and no evidence of PFO Continue aspirin and lipitor Physical therapy/Occupational Therapy recommended subacute rehab, however the patient is uninsured #Dysphagia #Dysarthria -PEG tube placed on 04/28/2021 -tube feeds at 63cc/hr, will continue. Nutrition consulted; appreciate recs -meds per PEG tube #BHASKAR secondary to vasomotor nephropathyworsened Creatinine increased from 1.7-3.5 -continue free water flushes via PEG tube -Renal ultrasound suggestive of medical renal disease -avoid nephrotoxins and renally dose medications -Nephrology consulted, assistance appreciated #Hypernatremiaimproving -Sodium 151-->147 -continue free water flushes and LR 100 cc/hour -Nephrology consulted; appreciate recs -Continue to monitor with daily BMP #COVID-19 positiveresolved -PCR 04/27/2021 -supportive care #Type 2 diabetes mellitus -Hyperglycemia secondary to IV fluid use to treat hypernatremia -continue accuchecks and sliding scale -humulin increased to 22 units qday -continue ADA diet -goal glucose 140-180, will adjust insulin as needed #Atrial fibrillation with RVR, (new onset) -rate currently controlled -continue amiodarone 200 mg daily, metoprolol tartrate 100 mg twice daily, and eliquis 5 mg every 12 hours #Moderate protein calorie malnutrition -albumin 3.2 -nutrition consult, continue TF #Advanced care planning #Discharge planning -Legal next of kin Daughter Soniya Mabry ([phone]) still has not made a decision regarding PEG tube. Discussed with CM about contacting Adult Protective Services and starting the process for Guardianship for the patient. Family has contacted [facility] to evaluate the patient for inpatient hospice. -Time: +30 minutes Disposition Plan: Continue medical management Total Time Spent with Patient (Minutes): 45 minutes History Interval history: Patient had episodes of desaturations requiring Ventimask, fever as high as 102.9 F, and tachycardia to 150s. Hospitalist Physical - Constitutional Vitals: Temp Pulse Resp BP Pulse Ox 98.8 F 82 20 125/71 99 05/21/21 13:33 05/21/21 13:58 05/21/21 10:00 05/21/21 13:33 05/21/21 10:00 General appearance: Present: no acute distress, well-nourished, other (Dysarthria, confused) - EENT Eyes: Present: PERRL, EOM intact ENT: hearing intact, clear oral mucosa - Neck Neck: Present: supple, normal ROM - Respiratory Respiratory effort: normal Respiratory: bilateral: diminished - Cardiovascular Rhythm: irregularly irregular Heart Sounds: Present: S1 & S2 - Extremities Extremities: no ischemia, pulses intact, pulses symmetrical, normal temperature, normal color Peripheral Pulses: within normal limits - Abdominal General gastrointestinal: soft, non-tender, non-distended, normal bowel sounds, other (PEG tube in place) - Integumentary Integumentary: Present: clear, warm, dry - Psychiatric Psychiatric: other (Unable to assess given stroke) - Neurologic Neurologic: other (Unable to assess given stroke) - Allied Health Allied health notes reviewed: nursing HEART Score - HEART Score Troponin: Troponin T 0.011 ng/mL (0.00-0.029) 04/20/21 17:44 Results - Labs CBC & Chem 7: 05/15/21 04:38 05/21/21 12:24 Labs: Laboratory Last Values WBC 11.2 K/mm3 (4.5-11.0) H 05/15/21 04:38 RBC 5.54 M/mm3 (3.65-5.03) H 05/15/21 04:38 Hgb 15.4 gm/dl (11.8-15.2) H 05/15/21 04:38 Hct 49.4 % (35.5-45.6) H 05/15/21 04:38 MCV 89 fl (84-94) 05/15/21 04:38 MCH 28 pg (28-32) 05/15/21 04:38 MCHC 31 % (32-34) L 05/15/21 04:38 RDW 13.8 % (13.2-15.2) 05/15/21 04:38 Plt Count 267 K/mm3 (140-440) 05/15/21 04:38 Lymph % (Auto) 11.5 % (13.4-35.0) L 05/04/21 05:54 [place] % (Auto) 12.8 % (0.0-7.3) H 05/04/21 05:54 Eos % (Auto) 2.2 % (0.0-4.3) 05/04/21 05:54 Baso % (Auto) 0.6 % (0.0-1.8) 05/04/21 05:54 Lymph # (Auto) 1.3 K/mm3 (1.2-5.4) 05/04/21 05:54 [place] # (Auto) 1.5 K/mm3 (0.0-0.8) H 05/04/21 05:54 Eos # (Auto) 0.3 K/mm3 (0.0-0.4) 05/04/21 05:54 Baso # (Auto) 0.1 K/mm3 (0.0-0.1) 05/04/21 05:54 Seg Neutrophils % 72.9 % (40.0-70.0) H 05/04/21 05:54 Seg Neutrophils # 8.5 K/mm3 (1.8-7.7) H 05/04/21 05:54 PT 14.1 Sec. (12.2-14.9) 04/28/21 13:53 INR 0.98 (0.87-1.13) 04/28/21 13:53 APTT 31.8 Sec. (24.2-36.6) 04/28/21 13:53 Thrombin Time 16.2 Sec. (15.1-19.6) 04/20/21 17:44 D-Dimer 894.94 ng/mlDDU (0-234) H 04/28/21 09:29 Sodium 147 mmol/L (137-145) H 05/21/21 12:24 Potassium 4.4 mmol/L (3.6-5.0) 05/21/21 12:24 Chloride 111.6 mmol/L (98-107) H 05/21/21 12:24 Carbon Dioxide 19 mmol/L (22-30) L 05/21/21 12:24 Anion Gap 21 mmol/L 05/21/21 12:24 BUN 87 mg/dL (9-20) H 05/21/21 12:24 Creatinine 3.5 mg/dL (0.8-1.3) H 05/21/21 12:24 Estimated GFR 22 ml/min 05/21/21 12:24 BUN/Creatinine Ratio 25 % 05/21/21 12:24 Glucose 340 mg/dL (75-100) H 05/21/21 12:24 POC Glucose 292 mg/dL (70-105) H 05/21/21 11:25 Calcium 8.7 mg/dL (8.4-10.2) 05/21/21 12:24 Magnesium 1.90 mg/dL (1.7-2.3) 04/20/21 17:44 Ferritin 1157.0 ng/mL (30.0-300.0) H 04/28/21 09:29 Total Bilirubin 0.20 mg/dL (0.1-1.2) 05/06/21 05:32 AST 25 units/L (5-40) 05/06/21 05:32 ALT 64 units/L (7-56) H 05/06/21 05:32 Alkaline Phosphatase 168 units/L (35-129) H 05/06/21 05:32 Lactate Dehydrogenase 287 units/L (91-180) H 04/28/21 09:29 Total Creatine Kinase 79 units/L (55-170) 04/20/21 17:44 Total Creatine Kinase 81 units/L (55-170) 04/20/21 17:44 CK-MB (CK-2) 2.1 ng/mL (0.0-4.0) 04/20/21 17:44 CK-MB (CK-2) Rel Index 2.6 (0-4) 04/20/21 17:44 Troponin T 0.011 ng/mL (0.00-0.029) 04/20/21 17:44 C-Reactive Protein 15.40 mg/dL (0.00-1.30) H 04/28/21 09:29 Total Protein 7.4 g/dL (6.3-8.2) 05/06/21 05:32 Albumin 3.2 g/dL (3.9-5) L 05/06/21 05:32 Albumin/Globulin Ratio 0.8 % 05/06/21 05:32 TSH 1.040 mlU/mL (0.270-4.200) 04/20/21 19:42 Free T4 1.16 ng/dL (0.76-1.46) 04/20/21 19:42 Urine Color Saira (Yellow) 04/26/21 Unknown Urine Turbidity Cloudy (Clear) 04/26/21 Unknown Urine pH 5.0 (5.0-7.0) 04/26/21 Unknown Ur Specific [place] 1.020 (1.003-1.030) 04/26/21 Unknown Urine Protein 100 mg/dl mg/dL (Negative) 04/26/21 Unknown Urine Glucose (UA) >=500 mg/dL (Negative) 04/26/21 Unknown Urine Ketones Neg mg/dL (Negative) 04/26/21 Unknown Urine Blood Mod (Negative) 04/26/21 Unknown Urine Nitrite Neg (Negative) 04/26/21 Unknown Urine Bilirubin Neg (Negative) 04/26/21 Unknown Urine Urobilinogen 2.0 mg/dL (<2.0) 04/26/21 Unknown Ur Leukocyte Esterase Neg (Negative) 04/26/21 Unknown Urine WBC (Auto) 1.0 /HPF (0.0-6.0) 04/20/21 18:19 Urine RBC (Auto) 3.0 /HPF (0.0-6.0) 04/20/21 18:19 U Epithel Cells (Auto) < 1.0 /HPF (0-13.0) 04/20/21 18:19 Hyaline Casts 5 /LPF 04/20/21 18:19 Urine Mucus Few /HPF 04/20/21 18:19 Plasma/Serum Alcohol < 0.01 % (0-0.07) 04/20/21 17:44 Coronavirus (PCR) Negative (Negative) 05/09/21 09:20 Microbiology: Microbiology 05/20/21 08:28 Peripheral/Venous Blood Culture - Preliminary NO GROWTH AFTER 24 HOURS 05/20/21 08:28 Peripheral/Venous Blood Culture - Preliminary NO GROWTH AFTER 24 HOURS Bravo/IV: Voiding Method Condom Catheter Active Medications - Current Medications Current Medications: Generic Name Dose Route Start Last Admin Trade Name Freq PRN Reason Stop Dose Admin Acetaminophen 650 mg 05/20/21 20:45 05/20/21 23:11 Acetaminophen 325 Mg/10.15 Ml Oral Liqd Unit Dose PO 650 mg Q6H PRN Administration Fever >101 Albuterol 2.5 mg 04/20/21 18:41 Albuterol 2.5 Mg/3 Ml Nebu IH Q3HRT PRN Shortness Of Breath Amiodarone HCl 200 mg 05/01/21 10:00 05/21/21 10:26 Amiodarone 200 Mg Tab PO 200 mg DAILY NAMAN Administration Amlodipine Besylate 10 mg 05/01/21 10:00 05/21/21 10:27 Amlodipine 10 Mg Tab PO 10 mg QDAY NAMAN Administration Lipase/Protease/Amylase 1 each 04/25/21 15:16 Lipase 10,500/Protease 25,000/Amylase 43,750 (Units) Dr Willingham FEEDTUBE PRN PRN For Clogged Feeding Tube Apixaban 5 mg 04/29/21 10:00 05/21/21 10:27 Apixaban 5 Mg Tab PO 5 mg Q12HR NAMAN Administration Protocol Aspirin 81 mg 05/13/21 10:00 05/21/21 10:26 Aspirin Ec 81 Mg Tab PO 81 mg QDAY NAMAN Administration Atorvastatin Calcium 40 mg 04/20/21 22:00 05/20/21 23:05 Atorvastatin 40 Mg Tab PO 40 mg QHS NAMAN Administration Bisacodyl 10 mg 04/20/21 18:41 Bisacodyl 10 Mg Rect Supp GA QDAY PRN Constipation Cyclobenzaprine HCl 10 mg 04/20/21 19:00 04/24/21 12:36 Cyclobenzaprine 10 Mg Tab PO 10 mg TID PRN Administration Muscle Spasm Dextrose 0 ml 04/27/21 04:03 Dextrose 10% *Hypoglycemia IV PRN PRN Hypoglycemia Protocol Folic Acid 1 mg 04/20/21 18:59 05/21/21 10:27 Folic Acid 1 Mg Tab PO 1 mg QDAY NAMAN Administration Hydralazine HCl 10 mg 04/30/21 05:49 05/01/21 06:02 Hydralazine 20 Mg/1 Ml Inj IV 10 mg Q6HR PRN Administration Hypertension Hydralazine HCl 100 mg 05/01/21 12:00 05/21/21 13:32 Hydralazine 100 Mg Tab PO 100 mg TID NAMAN Administration Hydromorphone HCl 0.5 mg 04/20/21 18:41 05/13/21 09:33 Hydromorphone 1 Mg/1 Ml Inj IV 0.5 mg Q6H PRN Administration Pain , Severe (7-10) Dextrose 1,000 mls @ 150 mls/hr 05/15/21 10:00 05/19/21 14:44 D5w IV 125 mls/hr DIRECT NAMAN Administration Cefepime HCl 2 gm in 100 mls @ 200 mls/hr 05/21/21 22:00 Cefepime/Ns 2 Gm/100 Ml IV Q24H NAMAN Insulin Human Isoph/Insulin Regular 22 unit 05/18/21 08:37 05/21/21 08:26 Insulin Nph/Regular 70/30 Inj SUB-Q 22 unit BIDDIAB NAMAN Administration Insulin Human Lispro 0 unit 04/27/21 04:00 05/21/21 12:34 Insulin Lispro 100 Unit/Ml SUB-Q 6 unit Q6HR NAMAN Administration Protocol Lansoprazole 30 mg 04/28/21 11:00 05/21/21 10:27 Lansoprazole 30 Mg Solutab FEEDTUBE 30 mg QDAY NAMAN Administration Lorazepam 2 mg 04/20/21 18:44 04/28/21 23:41 Lorazepam 2 Mg/Ml Vial IV 2 mg Q1HR PRN Administration CIWA-Ar 8-15 Magnesium Hydroxide 30 ml 04/20/21 18:41 Magnesium Hydroxide (Mom) Oral Liqd Udc PO Q4H PRN Constipation Metoclopramide HCl 5 mg 05/15/21 09:00 Metoclopramide 10 Mg Tab PO Q6H PRN Nausea And Vomiting Metoprolol Tartrate 100 mg 04/29/21 12:00 05/21/21 10:28 Metoprolol Tartrate 50 Mg Tab PO Not Given BID NAMAN Ondansetron HCl 4 mg 04/20/21 18:41 Ondansetron 4 Mg/2 Ml Inj IV Q8H PRN Nausea And Vomiting Oxycodone/Acetaminophen 1 tab 04/20/21 18:41 04/28/21 18:05 Oxycodone /Acetaminophen 5-325mg Tab PO 1 tab Q12H PRN Administration Pain, Moderate (4-6) Promethazine HCl 25 mg 04/20/21 18:41 Promethazine 25 Mg Rect Supp GA Q6H PRN Nausea And Vomiting Simple Syrup 15 ml 04/25/21 15:16 Simple Syrup 15 Ml FEEDTUBE PRN PRN Hypoglycemia Simple Syrup 30 ml 04/25/21 15:16 Simple Syrup 15 Ml FEEDTUBE PRN PRN Hypoglycemia Sodium Bicarbonate 325 mg 04/25/21 15:16 Sodium Bicarbonate 325 Mg Tab FEEDTUBE PRN PRN For Clogged Feeding Tube Sodium Chloride 10 ml 04/20/21 18:41 05/20/21 23:05 Sodium Chloride 0.9% 10 Ml Flush Syringe IV 10 ml PRN PRN Administration LINE FLUSH Nutrition/Malnutrition Assess - Dietary Evaluation Nutrition/Malnutrition Findings: Nutrition Notes Start: 04/23/21 12:36 Freq: Status: Active Protocol: Document 05/21/21 12:06 ANNIKA (Rec: 05/21/21 12:33 ANNIKA [id number]) Nutrition Notes Initial or Follow up Reassessment Current Diagnosis Acute Kidney Injury,Decubitus( Pressure Ulcer),Diabetes, Stroke Other Pertinent Diagnosis COVID-19, Atrial Fibrilation w /RVR, Dysphagia, HFrEF... Current Diet TF-Glucerna 1.2 Maurice @ 63 ml/hr (since D 05/14). Labs/Tests 05/21: Na 150, Cl 112.1, CO2 19, BUN 84, Crea 3.6, Glu 351. Pertinent Medications 05/21: Folic acid, D5w 1000 ml @ 125 ml/hr, Insulin, others nutritionally unremarkable. Height 6 ft 3 in Weight 79.5 kg [place] Body Weight (kg) 89.09 BMI 21.9 Weight change and time frame No body weight change reported in 27 days. Weight Status Appropriate Subjective/Other Information RD consult for routine F/U on TF tolerance. TF is on hold since 05/20 am when pt vomited, I spoke with RN and told me that there are no directions regarding resume TF at the time. Percent of energy/protein needs met: Currently TF on Hold. Burn Absent Trauma Absent GI Symptoms None Food Allergy No Skin Integrity/Comment Sacral Decubitus Current % PO Other Minimum of two criteria No #1 Nutrition Diagnosis Inadequate oral intake Comments: TF is on hold since 05/20 am when pt vomited, I spoke with RN and told me that there are no directions regarding resume TF at the time. Diagnosis Progress(for reassessment Worsened documentation) Is patient on ventilator? No Is Patient Ambulatory and/or Out of Bed No REE-([place]-St. Jeor-confined to bed) [phone] Calculation Used for Recommendations [place] Jeor Additional Notes Protein: 1-1.2 g/Kg; 80-95 g/ day. Fluids: 1 ml/Kcal, or as per MD. Nutrition Intervention Nutrition Support: TF on Hold. Follow-Up By: 05/23/21 Additional Comments When pertinent, continue monitoring TF tolerance and BM .
--- NOTE | 2021-05-21 17:05 | Electrocardiograph Report ---
[facility] Test Date: 2021-05-16 Test Time: 17:54:31 Pat Name: CALEB JACKSON Department: Room: A387 1 Gender: M Oven Heater: JOCELIN : 1960 Requested By: SONI MCDERMOTT Order Number: [id number] Reading MD: Jojo Dominguez Measurements Intervals [place] Rate: 61 P: 79 IA: 195 QRS: 42 QRSD: 107 T: 62 QT: 483 QTc: 487 Interpretive Statements Sinus rhythm Left ventricular hypertrophy Compared to ECG 04/29/2021 08:31:42 No significant change Electronically Signed On 05-21-2021 17:05:08 EST by oJjo Dominguez
[2021-05-21] MEDS ORDERED: VANCOMYCIN 1,250 MG in SODIUM CHLORIDE 0.9% 250ML 250 ML IV SCH (18:30)
[2021-05-21] MEDS: CEFEPIME/NS 2 GM/100 ML 2 GM/100 ML BAG IV SCH (22:48)
[2021-05-22] MEDS: INSULIN LISPRO 100 UNIT/ML SUB-Q SCH ×4 (00:29→18:11)
[2021-05-22] MEDS: METOPROLOL TARTRATE 50 MG TAB PO SCH ×4 (03:29→22:16)
[2021-05-22] MEDS: FREE WATER PO SCH ×8 (03:30→21:44)
[2021-05-22 04:41] LABS: Hematocrit 38.3 % (35.5-45.6); Hemoglobin 12.6 gm/dl (11.8-15.2); Mean Corpuscular HGB Conc 33 % (32-34); Mean Corpuscular Volume 86 fl (84-94); Red Blood Count 4.45 M/mm3 (3.65-5.03); Red Cell Distribution Width 13.2 % (13.2-15.2)
[2021-05-22 04:47] LABS: Platelet Count 97 K/mm3 (140-440)
[2021-05-22 04:53] LABS: Calcium 8.8 mg/dL (8.4-10.2)
[2021-05-22 05:49] LABS: Basophils % (Manual) 0 % (0.0-1.8); Eosinophils % (Manual) 0 % (0.0-4.3); Total Cells Counted 100
[2021-05-22 05:53] LABS: Platelet Estimate Consistent w Auto; RBC Morphology Normal
[2021-05-22] MEDS: DEXTROSE 5% IN WATER 1,000 ML IV SCH ×2 (08:25→18:16)
[2021-05-22] MEDS: INSULIN NPH/REGULAR 70/30 INJ SUB-Q SCH ×3 (08:37→18:10)
[2021-05-22] MEDS: hydrALAZINE 100 MG TAB PO SCH ×4 (08:37→21:42)
[2021-05-22] MEDS ORDERED: VANCOMYCIN/NS 1 GM/250 ML 1 GM/250 ML BAG IV ONE (09:00)
[2021-05-22] MEDS: amLODIPine 10 MG TAB PO SCH (10:05)
[2021-05-22] MEDS ORDERED: LACTATED RINGERS 1,000 ML IV ONE (10:30)
[2021-05-22] MEDS: AMIODARONE 200 MG TAB PO SCH (10:33)
[2021-05-22] MEDS: LANSOPRAZOLE 30 MG SOLUTAB FEEDTUBE SCH (10:33)
[2021-05-22] MEDS: ASPIRIN EC 81 MG TAB PO SCH (10:33)
[2021-05-22] MEDS: FOLIC ACID 1 MG TAB PO SCH (10:34)
[2021-05-22] MEDS: APIXABAN 5 MG TAB PO SCH ×2 (10:34→21:42)
--- NOTE | 2021-05-22 13:16 | Progress Note ---
Assessment and Plan Impression: * Acute kidney injury secondary to prerenal azotemia due to dehydration * Hypernatremia secondary to dehydration * Acute CVA with left hemiparesis * Atrial fibrillation * HFrEF --TTE: EF 45 to 50%. Hypokinesis of basal inferior septal wall. Hypokinesis inferior wall. Right ventricle systolic function is normal. Bubble study did not demonstrate PFO (Apr 20) * DM Plan: * However creatinine 1.7->3.6->2.6 with LR * Sodium uptrending with IVF- 147->153, consider switching to 1/2NS to encourage renal perfusion and may help with hypernatremia, likely still needs free water with D5 * Continue free H2O with TF * Glycemic control per primary team * Rate control/anticoagulation per cardiology * Dose medications for renal function * Avoid potential nephrotoxins * Daily BMP Subjective Date of service: 05/22/21 Principal diagnosis: Acute CVA Interval history: No acute issues noted, seen in room. On LR, continues on tube Feeds Objective - Exam Narrative Exam: General appearance: well-developed, well-nourished EENT: ATNC Respiratory: Present: Clear to Ascultation Cardiology: regular, S1S2 Gastrointestinal: normal, no tenderness, no distended Neurologic: other (unresponsive) Skin: intact - Vital Signs Vital signs: Vital Signs - 12hr 05/22/21 05/22/21 05/22/21 03:29 05:26 06:00 Temperature 99.1 F Pulse Rate 87 79 79 Respiratory 18 Rate Blood Pressure 129/67 110/76 Blood Pressure [Right] O2 Sat by Pulse 98 Oximetry 05/22/21 05/22/21 05/22/21 08:30 10:05 10:34 Temperature Pulse Rate 140 H 140 H Respiratory Rate Blood Pressure 99/50 99/50 Blood Pressure [Right] O2 Sat by Pulse 94 Oximetry 05/22/21 11:50 Temperature 99.2 F Pulse Rate 139 H Respiratory 20 Rate Blood Pressure Blood Pressure 119/66 [Right] O2 Sat by Pulse 100 Oximetry - Lab 05/22/21 04:19 05/22/21 04:19 Most recent lab results Calcium 8.8 mg/dL (8.4-10.2) 05/22/21 04:19 Magnesium 3.30 mg/dL (1.7-2.3) H 05/22/21 04:19 Medications & Allergies - Medications Allergies/Adverse Reactions: Allergies No Known Allergies Allergy (Verified 08/24/20 14:13) Home Medications: Home Medications Medication Instructions Recorded Confirmed Last Taken Type No Known Home Medications [No 04/30/21 04/30/21 Unknown History Reported Home Medications] Active Medications: Generic Name Dose Route Start Last Admin Trade Name Freq PRN Reason Stop Dose Admin Acetaminophen 650 mg 05/20/21 20:45 05/20/21 23:11 Acetaminophen 325 Mg/10.15 Ml Oral Liqd Unit Dose PO 650 mg Q6H PRN Administration Fever >101 Albuterol 2.5 mg 04/20/21 18:41 Albuterol 2.5 Mg/3 Ml Nebu IH Q3HRT PRN Shortness Of Breath Amiodarone HCl 200 mg 05/01/21 10:00 05/22/21 10:33 Amiodarone 200 Mg Tab PO Not Given DAILY NAMAN Amlodipine Besylate 10 mg 05/01/21 10:00 05/22/21 10:05 Amlodipine 10 Mg Tab PO Not Given QDAY NAMAN Lipase/Protease/Amylase 1 each 04/25/21 15:16 Lipase 10,500/Protease 25,000/Amylase 43,750 (Units) Dr Willingham FEEDTUBE PRN PRN For Clogged Feeding Tube Apixaban 5 mg 04/29/21 10:00 05/22/21 10:34 Apixaban 5 Mg Tab PO 5 mg Q12HR NAMAN Administration Protocol Aspirin 81 mg 05/13/21 10:00 05/22/21 10:33 Aspirin Ec 81 Mg Tab PO 81 mg QDAY NAMAN Administration Atorvastatin Calcium 40 mg 04/20/21 22:00 05/21/21 22:48 Atorvastatin 40 Mg Tab PO 40 mg QHS NAMAN Administration Bisacodyl 10 mg 04/20/21 18:41 Bisacodyl 10 Mg Rect Supp [place] QDAY PRN Constipation Cyclobenzaprine HCl 10 mg 04/20/21 19:00 04/24/21 12:36 Cyclobenzaprine 10 Mg Tab PO 10 mg TID PRN Administration Muscle Spasm Dextrose 0 ml 04/27/21 04:03 Dextrose 10% *Hypoglycemia IV PRN PRN Hypoglycemia Protocol Folic Acid 1 mg 04/20/21 18:59 05/22/21 10:34 Folic Acid 1 Mg Tab PO 1 mg QDAY NAMAN Administration Hydralazine HCl 10 mg 02/02/22 05:49 05/01/21 06:02 Hydralazine 20 Mg/1 Ml Inj IV 10 mg Q6HR PRN Administration Hypertension Hydralazine HCl 100 mg 05/01/21 12:00 05/22/21 09:33 Hydralazine 100 Mg Tab PO Not Given TID NAMAN Hydromorphone HCl 0.5 mg 04/20/21 18:41 05/13/21 09:33 Hydromorphone 1 Mg/1 Ml Inj IV 0.5 mg Q6H PRN Administration Pain , Severe (7-10) Dextrose 1,000 mls @ 150 mls/hr 05/15/21 10:00 05/22/21 08:25 D5w IV 125 mls/hr DIRECT NAMAN Administration Cefepime HCl 2 gm in 100 mls @ 200 mls/hr 05/21/21 22:00 05/21/21 22:48 Cefepime/Ns 2 Gm/100 Ml IV 200 mls/hr Q24H NAMAN Administration Insulin Human Isoph/Insulin Regular 22 unit 05/18/21 08:37 05/22/21 09:28 Insulin Nph/Regular 70/30 Inj SUB-Q 22 unit BIDDIAB NAMAN Administration Insulin Human Lispro 0 unit 04/27/21 04:00 05/22/21 12:04 Insulin Lispro 100 Unit/Ml SUB-Q 4 unit Q6HR NAMAN Administration Protocol Lansoprazole 30 mg 04/28/21 11:00 05/22/21 10:33 Lansoprazole 30 Mg Solutab FEEDTUBE 30 mg QDAY NAMAN Administration Lorazepam 2 mg 04/20/21 18:44 04/28/21 23:41 Lorazepam 2 Mg/Ml Vial IV 2 mg Q1HR PRN Administration CIWA-Ar 8-15 Magnesium Hydroxide 30 ml 04/20/21 18:41 Magnesium Hydroxide (Mom) Oral Liqd Udc PO Q4H PRN Constipation Metoclopramide HCl 5 mg 05/15/21 09:00 Metoclopramide 10 Mg Tab PO Q6H PRN Nausea And Vomiting Metoprolol Tartrate 100 mg 04/29/21 12:00 05/22/21 10:34 Metoprolol Tartrate 50 Mg Tab PO Not Given BID [facility] Ondansetron HCl 4 mg 04/20/21 18:41 Ondansetron 4 Mg/2 Ml Inj IV Q8H PRN Nausea And Vomiting Oxycodone/Acetaminophen 1 tab 04/20/21 18:41 04/28/21 18:05 Oxycodone /Acetaminophen 5-325mg Tab PO 1 tab Q12H PRN Administration Pain, Moderate (4-6) Promethazine HCl 25 mg 04/20/21 18:41 Promethazine 25 Mg Rect Supp [place] Q6H PRN Nausea And Vomiting Simple Syrup 15 ml 04/25/21 15:16 Simple Syrup 15 Ml FEEDTUBE PRN PRN Hypoglycemia Simple Syrup 30 ml 04/25/21 15:16 Simple Syrup 15 Ml FEEDTUBE PRN PRN Hypoglycemia Sodium Bicarbonate 325 mg 04/25/21 15:16 Sodium Bicarbonate 325 Mg Tab FEEDTUBE PRN PRN For Clogged Feeding Tube Sodium Chloride 10 ml 04/20/21 18:41 05/20/21 23:05 Sodium Chloride 0.9% 10 Ml Flush Syringe IV 10 ml PRN PRN Administration LINE FLUSH
--- NOTE | 2021-05-22 17:27 | Progress Note ---
Assessment and Plan Assessment and plan: 61-year-old male w/ hx of CVH with LHP, nicotine dependence, EtOH dependence who presented with worsening left-sided weakness and difficulty speaking for 2 days. Code stroke was initiated. Patient was also discovered to have new onset A. fib with RVR. Currently stable, requiring feeding tube awaiting safe discharge. Patient is uninsured and will require total care at this time. Exploring hospice, NOK will need to agree to stopping use of PEG tube. #Acute hypoxic respiratory failure Concern for viral pneumonia (possible Covid infection) Currently on 4 L nasal cannula (wean down from Ventimask) CT chest, abdomen, pelvis without contrast (05/21/2021) revealing bilateral pulmonary infiltrates Ordering airborne and droplet precaution Ordering influenza a/B PCR and coronavirus PCR #Acute/subacute CVA #Acute metabolic encephalopathy-Multifactorial -CT with extensive microvascular changes; MRI brain showed subacute multi- infarct cerebellar and brain stem / luba -US carotid <50% stenosis -stroke likely embolic from A fib; continue eliquis and metoprolol, amiodarone for rate control -TTE showed diastolic dysfunction; normal EF and no evidence of PFO Continue aspirin and lipitor Physical therapy/Occupational Therapy recommended subacute rehab, however the patient is uninsured #Dysphagia #Dysarthria -PEG tube placed on 04/28/2021 -tube feeds at 63cc/hr, will continue. Nutrition consulted; appreciate recs -meds per PEG tube #BHASKAR secondary to vasomotor nephropathyworsened Creatinine increased from 1.7-3.5 -continue free water flushes via PEG tube -Renal ultrasound suggestive of medical renal disease -avoid nephrotoxins and renally dose medications -Nephrology consulted, assistance appreciated #Hypernatremia -Sodium 151-->147-->153 -Restarting free water flushes and LR 100 cc/hour. Fluids were stopped during episodes of severe respiratory decline. -Nephrology consulted; appreciate recs -Continue to monitor with daily BMP #COVID-19 positiveresolved -PCR 04/27/2021 -supportive care #Type 2 diabetes mellitus -Hyperglycemia secondary to IV fluid use to treat hypernatremia -continue accuchecks and sliding scale -humulin increased to 22 units qday -continue ADA diet -goal glucose 140-180, will adjust insulin as needed #Atrial fibrillation with RVR, (new onset) -rate currently controlled -continue amiodarone 200 mg daily, metoprolol tartrate 100 mg twice daily, and eliquis 5 mg every 12 hours #Moderate protein calorie malnutrition -albumin 3.2 -nutrition consult, continue TF #Advanced care planning #Discharge planning -Legal next of kin Daughter Soniya Mabry ([phone]) still has not made a decision regarding PEG tube. Discussed with CM about contacting Adult Protective Services and starting the process for Guardianship for the patient. Family has contacted [facility] to evaluate the patient for inpatient hospice. -Time: +30 minutes Disposition Plan: Continue medical management Total Time Spent with Patient (Minutes): 45 minutes History Interval history: Patient had episodes of tachycardia to 130s. Hospitalist Physical - Constitutional Vitals: Temp Pulse Resp BP Pulse Ox 99.2 F 139 H 20 119/66 100 05/22/21 11:50 05/22/21 13:58 05/22/21 11:50 05/22/21 13:58 05/22/21 11:50 General appearance: Present: no acute distress, well-nourished, other (Dysarthria, confused) - EENT Eyes: Present: PERRL, EOM intact ENT: hearing intact, clear oral mucosa - Neck Neck: Present: supple, normal ROM - Respiratory Respiratory effort: normal Respiratory: bilateral: diminished (On 5 L nasal cannula) - Cardiovascular Rhythm: irregularly irregular Heart Sounds: Present: S1 & S2 - Extremities Extremities: no ischemia, pulses intact, pulses symmetrical, No edema, normal temperature, normal color Peripheral Pulses: within normal limits - Abdominal General gastrointestinal: soft, non-tender, non-distended, normal bowel sounds, other (PEG tube in place) - Integumentary Integumentary: Present: clear, warm, dry - Psychiatric Psychiatric: other (Unable to assess given stroke) - Neurologic Neurologic: other (Unable to assess given stroke) - Allied Health Allied health notes reviewed: nursing HEART Score - HEART Score Troponin: Troponin T 0.011 ng/mL (0.00-0.029) 04/20/21 17:44 Results - Labs CBC & Chem 7: 05/22/21 04:19 05/22/21 04:19 Labs: Laboratory Last Values WBC 10.3 K/mm3 (4.5-11.0) 05/22/21 04:19 RBC 4.45 M/mm3 (3.65-5.03) 05/22/21 04:19 Hgb 12.6 gm/dl (11.8-15.2) 05/22/21 04:19 Hct 38.3 % (35.5-45.6) 05/22/21 04:19 MCV 86 fl (84-94) 05/22/21 04:19 MCH 28 pg (28-32) 05/22/21 04:19 MCHC 33 % (32-34) 05/22/21 04:19 RDW 13.2 % (13.2-15.2) 05/22/21 04:19 Plt Count 97 K/mm3 (140-440) L 05/22/21 04:19 Lymph % (Auto) 11.5 % (13.4-35.0) L 05/04/21 05:54 [place] % (Auto) 12.8 % (0.0-7.3) H 05/04/21 05:54 Eos % (Auto) 2.2 % (0.0-4.3) 05/04/21 05:54 Baso % (Auto) 0.6 % (0.0-1.8) 05/04/21 05:54 Lymph # (Auto) 1.3 K/mm3 (1.2-5.4) 05/04/21 05:54 [place] # (Auto) 1.5 K/mm3 (0.0-0.8) H 05/04/21 05:54 Eos # (Auto) 0.3 K/mm3 (0.0-0.4) 05/04/21 05:54 Baso # (Auto) 0.1 K/mm3 (0.0-0.1) 05/04/21 05:54 Add Manual Diff Complete 05/22/21 04:19 Total Counted 100 05/22/21 04:19 Seg Neutrophils % 72.9 % (40.0-70.0) H 05/04/21 05:54 Seg Neuts % (Manual) 85.0 % (40.0-70.0) H 05/22/21 04:19 Band Neutrophils % 0 % 05/22/21 04:19 Lymphocytes % (Manual) 14.0 % (13.4-35.0) 05/22/21 04:19 Reactive Lymphs % (Man) 0 % 05/22/21 04:19 Monocytes % (Manual) 1.0 % (0.0-7.3) 05/22/21 04:19 Eosinophils % (Manual) 0 % (0.0-4.3) 05/22/21 04:19 Basophils % (Manual) 0 % (0.0-1.8) 05/22/21 04:19 Metamyelocytes % 0 % 05/22/21 04:19 Myelocytes % 0 % 05/22/21 04:19 Promyelocytes % 0 % 05/22/21 04:19 Blast Cells % 0 % 05/22/21 04:19 Nucleated RBC % Not Reportable 05/22/21 04:19 Seg Neutrophils # 8.5 K/mm3 (1.8-7.7) H 05/04/21 05:54 Seg Neutrophils # Man 8.8 K/mm3 (1.8-7.7) H 05/22/21 04:19 Band Neutrophils # 0.0 K/mm3 05/22/21 04:19 Lymphocytes # (Manual) 1.4 K/mm3 (1.2-5.4) 05/22/21 04:19 Abs React Lymphs (Man) 0.0 K/mm3 05/22/21 04:19 Monocytes # (Manual) 0.1 K/mm3 (0.0-0.8) 05/22/21 04:19 Eosinophils # (Manual) 0.0 K/mm3 (0.0-0.4) 05/22/21 04:19 Basophils # (Manual) 0.0 K/mm3 (0.0-0.1) 05/22/21 04:19 Metamyelocytes # 0.0 K/mm3 05/22/21 04:19 Myelocytes # 0.0 K/mm3 05/22/21 04:19 Promyelocytes # 0.0 K/mm3 05/22/21 04:19 Blast Cells # 0.0 K/mm3 05/22/21 04:19 WBC Morphology Not Reportable 05/22/21 04:19 Hypersegmented Neuts Not Reportable 05/22/21 04:19 Hyposegmented Neuts Not Reportable 05/22/21 04:19 Hypogranular Neuts Not Reportable 05/22/21 04:19 Smudge Cells Not Reportable 05/22/21 04:19 Toxic Granulation Not Reportable 05/22/21 04:19 Toxic Vacuolation Not Reportable 05/22/21 04:19 Dohle Bodies Not Reportable 05/22/21 04:19 Pelger-Huet Anomaly Not Reportable 05/22/21 04:19 Delfin Rods Not Reportable 05/22/21 04:19 Platelet Estimate Consistent w auto 05/22/21 04:19 Clumped Platelets Not Reportable 05/22/21 04:19 Plt Clumps, EDTA Not Reportable 05/22/21 04:19 Large Platelets Not Reportable 05/22/21 04:19 Giant Platelets Not Reportable 05/22/21 04:19 Platelet Satelliting Not Reportable 05/22/21 04:19 Plt Morphology Comment Not Reportable 05/22/21 04:19 RBC Morphology Normal 05/22/21 04:19 Dimorphic RBCs Not Reportable 05/22/21 04:19 Polychromasia Not Reportable 05/22/21 04:19 Hypochromasia Not Reportable 05/22/21 04:19 Poikilocytosis Not Reportable 05/22/21 04:19 Anisocytosis Not Reportable 05/22/21 04:19 Microcytosis Not Reportable 05/22/21 04:19 Macrocytosis Not Reportable 05/22/21 04:19 Spherocytes Not Reportable 05/22/21 04:19 Pappenheimer Bodies Not Reportable 05/22/21 04:19 Sickle Cells Not Reportable 05/22/21 04:19 Target Cells Not Reportable 05/22/21 04:19 Tear Drop Cells Not Reportable 05/22/21 04:19 Ovalocytes Not Reportable 05/22/21 04:19 Helmet Cells Not Reportable 05/22/21 04:19 Hoang-Combes Bodies Not Reportable 05/22/21 04:19 Alpine Rings Not Reportable 05/22/21 04:19 Frank Cells Not Reportable 05/22/21 04:19 Bite Cells Not Reportable 05/22/21 04:19 Crenated Cell Not Reportable 05/22/21 04:19 Elliptocytes Not Reportable 05/22/21 04:19 Acanthocytes (Spur) Not Reportable 05/22/21 04:19 Rouleaux Not Reportable 05/22/21 04:19 Hemoglobin C Crystals Not Reportable 05/22/21 04:19 Schistocytes Not Reportable 05/22/21 04:19 Malaria parasites Not Reportable 05/22/21 04:19 Giovanni Bodies Not Reportable 05/22/21 04:19 Hem Pathologist Commnt No 05/22/21 04:19 PT 14.1 Sec. (12.2-14.9) 04/28/21 13:53 INR 0.98 (0.87-1.13) 04/28/21 13:53 APTT 31.8 Sec. (24.2-36.6) 04/28/21 13:53 Thrombin Time 16.2 Sec. (15.1-19.6) 04/20/21 17:44 D-Dimer 1707.24 ng/mlDDU (0-234) H 05/21/21 17:47 Sodium 153 mmol/L (137-145) H 05/22/21 04:19 Potassium 4.7 mmol/L (3.6-5.0) 05/22/21 04:19 Chloride 116.7 mmol/L (98-107) H 05/22/21 04:19 Carbon Dioxide 20 mmol/L (22-30) L 05/22/21 04:19 Anion Gap 21 mmol/L 05/22/21 04:19 BUN 83 mg/dL (9-20) H 05/22/21 04:19 Creatinine 2.6 mg/dL (0.8-1.3) H 05/22/21 04:19 Estimated GFR 30 ml/min 05/22/21 04:19 BUN/Creatinine Ratio 32 % 05/22/21 04:19 Glucose 245 mg/dL (75-100) H 05/22/21 04:19 POC Glucose 229 mg/dL (70-105) H 05/22/21 11:13 Calcium 8.8 mg/dL (8.4-10.2) 05/22/21 04:19 Magnesium 3.30 mg/dL (1.7-2.3) H 05/22/21 04:19 Ferritin 1180.0 ng/mL (30.0-300.0) H 05/21/21 17:47 Total Bilirubin 0.20 mg/dL (0.1-1.2) 05/06/21 05:32 AST 25 units/L (5-40) 05/06/21 05:32 ALT 64 units/L (7-56) H 05/06/21 05:32 Alkaline Phosphatase 168 units/L (35-129) H 05/06/21 05:32 Lactate Dehydrogenase 287 units/L (91-180) H 04/28/21 09:29 Total Creatine Kinase 79 units/L (55-170) 04/20/21 17:44 Total Creatine Kinase 81 units/L (55-170) 04/20/21 17:44 CK-MB (CK-2) 2.1 ng/mL (0.0-4.0) 04/20/21 17:44 CK-MB (CK-2) Rel Index 2.6 (0-4) 04/20/21 17:44 Troponin T 0.011 ng/mL (0.00-0.029) 04/20/21 17:44 C-Reactive Protein 35.60 mg/dL (0.00-1.30) H 05/21/21 17:47 Total Protein 7.4 g/dL (6.3-8.2) 05/06/21 05:32 Albumin 3.2 g/dL (3.9-5) L 05/06/21 05:32 Albumin/Globulin Ratio 0.8 % 05/06/21 05:32 TSH 1.040 mlU/mL (0.270-4.200) 04/20/21 19:42 Free T4 1.16 ng/dL (0.76-1.46) 04/20/21 19:42 Urine Color Saira (Yellow) 04/26/21 Unknown Urine Turbidity Cloudy (Clear) 04/26/21 Unknown Urine pH 5.0 (5.0-7.0) 04/26/21 Unknown Ur Specific [place] 1.020 (1.003-1.030) 04/26/21 Unknown Urine Protein 100 mg/dl mg/dL (Negative) 04/26/21 Unknown Urine Glucose (UA) >=500 mg/dL (Negative) 04/26/21 Unknown Urine Ketones Neg mg/dL (Negative) 04/26/21 Unknown Urine Blood Mod (Negative) 04/26/21 Unknown Urine Nitrite Neg (Negative) 04/26/21 Unknown Urine Bilirubin Neg (Negative) 04/26/21 Unknown Urine Urobilinogen 2.0 mg/dL (<2.0) 04/26/21 Unknown Ur Leukocyte Esterase Neg (Negative) 04/26/21 Unknown Urine WBC (Auto) 1.0 /HPF (0.0-6.0) 04/20/21 18:19 Urine RBC (Auto) 3.0 /HPF (0.0-6.0) 04/20/21 18:19 U Epithel Cells (Auto) < 1.0 /HPF (0-13.0) 04/20/21 18:19 Hyaline Casts 5 /LPF 04/20/21 18:19 Urine Mucus Few /HPF 04/20/21 18:19 Random Vancomycin 7.5 ug/mL (0-40.0) 05/22/21 04:19 Plasma/Serum Alcohol < 0.01 % (0-0.07) 04/20/21 17:44 Coronavirus (PCR) Negative (Negative) 05/09/21 09:20 Microbiology: Microbiology 05/20/21 08:28 Peripheral/Venous Blood Culture - Preliminary NO GROWTH AFTER 48 HOURS 05/20/21 08:28 Peripheral/Venous Blood Culture - Preliminary NO GROWTH AFTER 48 HOURS Bravo/IV: Voiding Method Condom Catheter Active Medications - Current Medications Current Medications: Generic Name Dose Route Start Last Admin Trade Name Freq PRN Reason Stop Dose Admin Acetaminophen 650 mg 05/20/21 20:45 05/20/21 23:11 Acetaminophen 325 Mg/10.15 Ml Oral Liqd Unit Dose PO 650 mg Q6H PRN Administration Fever >101 Albuterol 2.5 mg 04/20/21 18:41 Albuterol 2.5 Mg/3 Ml Nebu IH Q3HRT PRN Shortness Of Breath Amiodarone HCl 200 mg 05/01/21 10:00 05/22/21 10:33 Amiodarone 200 Mg Tab PO Not Given DAILY NAMAN Amlodipine Besylate 10 mg 05/01/21 10:00 05/22/21 10:05 Amlodipine 10 Mg Tab PO Not Given QDAY NAMAN Lipase/Protease/Amylase 1 each 04/25/21 15:16 Lipase 10,500/Protease 25,000/Amylase 43,750 (Units) Dr Willingham FEEDTUBE PRN PRN For Clogged Feeding Tube Apixaban 5 mg 04/29/21 10:00 05/22/21 10:34 Apixaban 5 Mg Tab PO 5 mg Q12HR NAMAN Administration Protocol Aspirin 81 mg 05/13/21 10:00 05/22/21 10:33 Aspirin Ec 81 Mg Tab PO 81 mg QDAY NAMAN Administration Atorvastatin Calcium 40 mg 04/20/21 22:00 05/21/21 22:48 Atorvastatin 40 Mg Tab PO 40 mg QHS NAMAN Administration Bisacodyl 10 mg 04/20/21 18:41 Bisacodyl 10 Mg Rect Supp [place] QDAY PRN Constipation Cyclobenzaprine HCl 10 mg 04/20/21 19:00 04/24/21 12:36 Cyclobenzaprine 10 Mg Tab PO 10 mg TID PRN Administration Muscle Spasm Dextrose 0 ml 04/27/21 04:03 Dextrose 10% *Hypoglycemia IV PRN PRN Hypoglycemia Protocol Folic Acid 1 mg 04/20/21 18:59 05/22/21 10:34 Folic Acid 1 Mg Tab PO 1 mg QDAY NAMAN Administration Hydralazine HCl 10 mg 04/30/21 05:49 05/01/21 06:02 Hydralazine 20 Mg/1 Ml Inj IV 10 mg Q6HR PRN Administration Hypertension Hydralazine HCl 100 mg 05/01/21 12:00 05/22/21 14:03 Hydralazine 100 Mg Tab PO Not Given TID NAMAN Hydromorphone HCl 0.5 mg 04/20/21 18:41 05/13/21 09:33 Hydromorphone 1 Mg/1 Ml Inj IV 0.5 mg Q6H PRN Administration Pain , Severe (7-10) Dextrose 1,000 mls @ 150 mls/hr 05/15/21 10:00 05/22/21 08:25 D5w IV 125 mls/hr DIRECT NAMAN Administration Cefepime HCl 2 gm in 100 mls @ 200 mls/hr 05/21/21 22:00 05/21/21 22:48 Cefepime/Ns 2 Gm/100 Ml IV 200 mls/hr Q24H NAMAN Administration Insulin Human Isoph/Insulin Regular 22 unit 05/18/21 08:37 05/22/21 09:28 Insulin Nph/Regular 70/30 Inj SUB-Q 22 unit BIDDIAB NAMAN Administration Insulin Human Lispro 0 unit 04/27/21 04:00 05/22/21 12:04 Insulin Lispro 100 Unit/Ml SUB-Q 4 unit Q6HR NAMAN Administration Protocol Lansoprazole 30 mg 04/28/21 11:00 05/22/21 10:33 Lansoprazole 30 Mg Solutab FEEDTUBE 30 mg QDAY NAMAN Administration Lorazepam 2 mg 04/20/21 18:44 04/28/21 23:41 Lorazepam 2 Mg/Ml Vial IV 2 mg Q1HR PRN Administration CIWA-Ar 8-15 Magnesium Hydroxide 30 ml 04/20/21 18:41 Magnesium Hydroxide (Mom) Oral Liqd Udc PO Q4H PRN Constipation Metoclopramide HCl 5 mg 05/15/21 09:00 Metoclopramide 10 Mg Tab PO Q6H PRN Nausea And Vomiting Metoprolol Tartrate 100 mg 04/29/21 12:00 05/22/21 13:58 Metoprolol Tartrate 50 Mg Tab PO 100 mg BID NAMAN Administration Ondansetron HCl 4 mg 04/20/21 18:41 Ondansetron 4 Mg/2 Ml Inj IV Q8H PRN Nausea And Vomiting Oxycodone/Acetaminophen 1 tab 04/20/21 18:41 04/28/21 18:05 Oxycodone /Acetaminophen 5-325mg Tab PO 1 tab Q12H PRN Administration Pain, Moderate (4-6) Promethazine HCl 25 mg 04/20/21 18:41 Promethazine 25 Mg Rect Supp [place] Q6H PRN Nausea And Vomiting Simple Syrup 15 ml 04/25/21 15:16 Simple Syrup 15 Ml FEEDTUBE PRN PRN Hypoglycemia Simple Syrup 30 ml 04/25/21 15:16 Simple Syrup 15 Ml FEEDTUBE PRN PRN Hypoglycemia Sodium Bicarbonate 325 mg 04/25/21 15:16 Sodium Bicarbonate 325 Mg Tab FEEDTUBE PRN PRN For Clogged Feeding Tube Sodium Chloride 10 ml 04/20/21 18:41 05/20/21 23:05 Sodium Chloride 0.9% 10 Ml Flush Syringe IV 10 ml PRN PRN Administration LINE FLUSH Nutrition/Malnutrition Assess - Dietary Evaluation Nutrition/Malnutrition Findings: Nutrition Notes Start: 04/23/21 12:36 Freq: Status: Active Protocol: Document 05/21/21 12:06 ANNIKA (Rec: 05/21/21 12:33 ANNIKA [id number]) Nutrition Notes Initial or Follow up Reassessment Current Diagnosis Acute Kidney Injury,Decubitus( Pressure Ulcer),Diabetes, Stroke Other Pertinent Diagnosis COVID-19, Atrial Fibrilation w /RVR, Dysphagia, HFrEF... Current Diet TF-Glucerna 1.2 Maurice @ 63 ml/hr (since D 05/14). Labs/Tests 05/21: Na 150, Cl 112.1, CO2 19, BUN 84, Crea 3.6, Glu 351. Pertinent Medications 05/21: Folic acid, D5w 1000 ml @ 125 ml/hr, Insulin, others nutritionally unremarkable. Height 6 ft 3 in Weight 79.5 kg [place] Body Weight (kg) 89.09 BMI 21.9 Weight change and time frame No body weight change reported in 27 days. Weight Status Appropriate Subjective/Other Information RD consult for routine F/U on TF tolerance. TF is on hold since 05/20 am when pt vomited, I spoke with RN and told me that there are no directions regarding resume TF at the time. Percent of energy/protein needs met: Currently TF on Hold. Burn Absent Trauma Absent GI Symptoms None Food Allergy No Skin Integrity/Comment Sacral Decubitus Current % PO Other Minimum of two criteria No #1 Nutrition Diagnosis Inadequate oral intake Comments: TF is on hold since 05/20 am when pt vomited, I spoke with RN and told me that there are no directions regarding resume TF at the time. Diagnosis Progress(for reassessment Worsened documentation) Is patient on ventilator? No Is Patient Ambulatory and/or Out of Bed No REE-([facility]-confined to bed) 2020.748 Calculation Used for Recommendations [facility] Additional Notes Protein: 1-1.2 g/Kg; 80-95 g/ day. Fluids: 1 ml/Kcal, or as per MD. Nutrition Intervention Nutrition Support: TF on Hold. Follow-Up By: 05/23/21 Additional Comments When pertinent, continue monitoring TF tolerance and BM .
[2021-05-22] MEDS: CEFEPIME/NS 2 GM/100 ML 2 GM/100 ML BAG IV SCH (21:42)
[2021-05-23] MEDS: INSULIN LISPRO 100 UNIT/ML SUB-Q SCH ×3 (00:14→17:30)
[2021-05-23] MEDS ORDERED: LORazepam 2 MG/ML VIAL IV ONE (01:46)
[2021-05-23] MEDS: DEXTROSE 5% IN WATER 1,000 ML IV SCH (02:03)
[2021-05-23] MEDS: FREE WATER PO SCH ×5 (02:29→22:00)
[2021-05-23] MEDS ORDERED: dilTIAZem 25 MG/5 ML INJ IV ONE (04:24)
--- NOTE | 2021-05-23 04:26 | Event Note ---
Date: 05/23/21 Patient developed respiratory distress as well as patient is tachycardic heart rate is ranging from 150-160 range. Chest x-ray, ABG is ordered. Patient is given Cardizem 10 mg IV x1 and transfer the patient to the intermediate ICU
[2021-05-23 05:18] LABS: Basophils % (Auto) 0.2 % (0.0-1.8); Eosinophils % (Auto) 0.5 % (0.0-4.3); Hemoglobin 11.5 gm/dl (11.8-15.2); Lymphocytes # (Auto) 1.2 K/mm3 (1.2-5.4); Lymphocytes % (Auto) 16.8 % (13.4-35.0); Mean Corpuscular HGB Conc 31 % (32-34); Mean Corpuscular Volume 88 fl (84-94); Monocytes # (Auto) 0.6 K/mm3 (0.0-0.8); Monocytes % (Auto) 8.8 % (0.0-7.3); Platelet Count 105 K/mm3 (140-440); Red Blood Count 4.23 M/mm3 (3.65-5.03); Red Cell Distribution Width 13.2 % (13.2-15.2)
[2021-05-23] MEDS ORDERED: flumazeniL 0.5 MG/5 ML INJ IV ONE (05:20)
[2021-05-23] MEDS ORDERED: AMIODARONE 150 MG in DEXTROSE 5% IN WATER 97 ML IV ONE (05:20)
[2021-05-23] MEDS ORDERED: NALOXONE 0.4 MG/1 ML INJ IV PRN (05:21)
[2021-05-23] MEDS ORDERED: SODIUM CHLORIDE 0.9% 1000 ML 1,000 ML IV ONE (05:25)
[2021-05-23] MEDS ORDERED: SODIUM CHLORIDE 0.9% 1000 ML 1,000 ML ONE (05:27)
--- NOTE | 2021-05-23 05:28 | XRay Report ---
XR chest 1V ap INDICATION / CLINICAL INFORMATION: sob. COMPARISON: 05/21/2021 FINDINGS: SUPPORT DEVICES: None. HEART /PULMONARY VASCULATURE: Unchanged. LUNGS / PLEURA: Patchy airspace opacities throughout the lungs, most pronounced within the left lung base, unchanged from prior study. No sizable pleural effusion. No pneumothorax. IMPRESSION: 1. No significant interval change. Signer Name: Sina Kilgore MD Signed: 05/23/2021 5:23 AM Workstation Name: [id number]
[2021-05-23 05:33] LABS: Calcium 8.5 mg/dL (8.4-10.2)
[2021-05-23] MEDS: AMIODARONE 900 MG in DEXTROSE 5% IN WATER 482 ML IV SCH ×2 (05:50→22:41)
--- NOTE | 2021-05-23 08:06 | Event Note ---
Date: 05/23/21 Spoke with Daughter Soniya Mabry ([phone]) this morning, she is ok with patient being on BIPAP but does not want any resuscitative effort. She wants him to be a DNR. Nurse also spoke with her and confirmed. She aggress to continue management medically.
[2021-05-23] MEDS: hydrALAZINE 100 MG TAB PO SCH ×3 (08:53→22:02)
[2021-05-23] MEDS: INSULIN NPH/REGULAR 70/30 INJ SUB-Q SCH ×2 (08:59→17:28)
[2021-05-23] MEDS: LANSOPRAZOLE 30 MG SOLUTAB FEEDTUBE SCH (11:13)
[2021-05-23] MEDS: ASPIRIN EC 81 MG TAB PO SCH (11:13)
[2021-05-23] MEDS: APIXABAN 5 MG TAB PO SCH ×2 (11:13→22:02)
[2021-05-23] MEDS: FOLIC ACID 1 MG TAB PO SCH (11:13)
[2021-05-23] MEDS: METOPROLOL TARTRATE 50 MG TAB PO SCH ×2 (11:14→22:02)
[2021-05-23] MEDS: amLODIPine 10 MG TAB PO SCH (11:45)
--- NOTE | 2021-05-23 14:35 | Progress Note ---
Assessment and Plan Patient is 61-year-old male past medical history of CVH with LHP, nicotine dependence, EtOH dependence who presented to the ED with a complaint of left- sided weakness and difficulty speaking x 2days prior to admission CVA Afib w/RVR(new onset) Etoh abuse NSVT Echo 04/20/2021-EF 45 to 50%, left ventricular systolic function is borderline. There is hypokinesis of basal inferior septal wall. Hypokinesis inferior wall. Right ventricle systolic function is normal. Bubble study did not demonstrate PFO. Plan: Notified by RN that this a.m. patient's heart rate is A. fib trending in the 130s to 140s. Amiodarone drip was initiated. Continue amiodarone drip for rate control Patient was made AND/DNR this a.m. Continue metoprolol 100 mg p.o. BID, hydralazine, aspirin, and Lipitor Anticoagulated on Eliquis Previously discussed case with crime scene specialist. Even though patient has had episodes of NSVT patient is not a candidate for ICD. Recommend conservative management Patient seen in conjunction with Dr. Samuels who agrees with this plan of care - Patient Problems (1) Alcohol dependence Current Visit: Yes Status: Acute (2) Atrial fibrillation with RVR Current Visit: Yes Status: Acute (3) CVA (cerebral vascular accident) Current Visit: Yes Status: Acute (4) Elevated blood pressure reading Current Visit: Yes Status: Acute (5) Nicotine dependence Current Visit: Yes Status: Acute Qualifiers: Nicotine product type: cigarettes Substance use status: in withdrawal Qualified Code(s): F17.213 - Nicotine dependence, cigarettes, with withdrawal (6) Stroke Current Visit: Yes Status: Acute Subjective Date of service: 05/23/21 Principal diagnosis: Acute CVA Interval history: Cardiology notified patient is A. fib with RVR rate trending 130s to 140s Patient has been transferred to ICU due to respiratory distress and is currently on BiPAP Objective Vital Signs Temp Pulse Pulse Resp BP Pulse Ox 05/23/21 12:01 111 H 28 H 97/55 100 05/23/21 12:00 153 H 24 97 05/23/21 11:47 134 H 28 H 103/53 99 05/23/21 11:45 126 H 27 H 120/83 99 05/23/21 11:31 126 H 25 H 126/99 100 05/23/21 11:16 128 H 25 H 109/72 99 05/23/21 11:14 129 H 109/72 05/23/21 11:00 133 H 26 H 109/72 98 05/23/21 10:45 129 H 28 H 128/78 99 05/23/21 10:30 137 H 26 H 128/78 98 05/23/21 10:15 162 H 42 H 122/78 98 05/23/21 10:00 138 H 27 H 122/78 97 05/23/21 09:45 126 H 24 117/91 98 05/23/21 09:30 133 H 36 H 117/91 96 05/23/21 09:15 144 H 26 H 120/78 98 05/23/21 09:00 146 H 26 H 120/78 98 05/23/21 08:45 150 H 45 H 126/84 97 05/23/21 08:36 136 H 25 H 126/84 96 05/23/21 08:30 127 H 26 H 126/84 97 05/23/21 08:15 137 H 25 H 117/85 96 05/23/21 08:00 142 H 153 H 24 117/85 97 05/23/21 07:45 156 H 28 H 108/77 97 05/23/21 07:31 141 H 27 H 108/77 96 05/23/21 07:15 149 H 40 H 106/75 97 05/23/21 07:00 125 H 27 H 106/75 98 05/23/21 06:45 132 H 31 H 96/69 97 05/23/21 06:31 152 H 29 H 96/69 98 05/23/21 06:15 148 H 25 H 100/70 98 05/23/21 06:01 135 H 23 100/70 98 05/23/21 06:00 158 H 158 H 27 H 97 05/23/21 05:52 152 H 24 99 05/23/21 05:45 145 H 28 H 105/79 93 05/23/21 05:31 162 H 30 H 92/65 100 05/23/21 05:15 161 H 41 H 90/67 96 05/23/21 05:05 151 H 05/22/21 22:19 99.7 F H 73 18 100/67 100 05/22/21 22:16 73 100/67 05/22/21 22:00 120 H 20 96 05/22/21 15:39 98.8 F 100 H 18 102/70 99 - Physical Examination General: Other HEENT: Positive: Normocephaly Neck: Positive: trachea midline Cardiac: Positive: irregularly irregular Lungs: Positive: Decreased Breath Sounds Neuro: Positive: Grossly Intact Abdomen: Positive: Soft Skin: Negative: Rash, Suspicious Lesions, Ulceration Extremities: Present: upper extr. pulses. Absent: edema - Labs and Meds CBC 05/23/21 Range/Units 05:02 WBC 7.4 (4.5-11.0) K/mm3 RBC 4.23 (3.65-5.03) M/mm3 Hgb 11.5 L (11.8-15.2) gm/dl Hct 37.0 (35.5-45.6) % Plt Count 105 L (140-440) K/mm3 Lymph # (Auto) 1.2 (1.2-5.4) K/mm3 [place] # (Auto) 0.6 (0.0-0.8) K/mm3 Eos # (Auto) 0.0 (0.0-0.4) K/mm3 Baso # (Auto) 0.0 (0.0-0.1) K/mm3 Comprehensive Metabolic Panel 05/23/21 Range/Units 05:02 Sodium 149 H (137-145) mmol/L Potassium 4.3 (3.6-5.0) mmol/L Chloride 116.3 H (98-107) mmol/L Carbon Dioxide 19 L (22-30) mmol/L BUN 68 H (9-20) mg/dL Creatinine 2.0 H (0.8-1.3) mg/dL Glucose 303 H (75-100) mg/dL Calcium 8.5 (8.4-10.2) mg/dL - Imaging and Cardiology EKG: report reviewed, image reviewed Echo: report reviewed - Telemetry EKG Rhythm: Atrial Fibrillation - EKG Supraventricular dysrhythmia: atrial fibrillation Ventricular dysrhythmias: non-sustained ventricular
--- NOTE | 2021-05-23 16:15 | Progress Note ---
Assessment and Plan Impression: * Acute kidney injury secondary to prerenal azotemia due to dehydration * Hypernatremia secondary to dehydration * Acute CVA with left hemiparesis * Atrial fibrillation * HFrEF --TTE: EF 45 to 50%. Hypokinesis of basal inferior septal wall. Hypokinesis inferior wall. Right ventricle systolic function is normal. Bubble study did not demonstrate PFO (Apr 20) * DM Plan: * However creatinine 1.7->3.6->2.6->2.0 with LR, now off IVF * Sodium stable now at 149 * Continue free H2O with TF * Glycemic control per primary team * Rate control/anticoagulation per cardiology * Dose medications for renal function * Avoid potential nephrotoxins * Daily BMP * No indications for renal replacement therapy * May have worsening renal indices given tachycardia this AM Subjective Date of service: 05/23/21 Principal diagnosis: Acute CVA Interval history: Transferred to ICU this AM for tachycardia, on amio gtt. Now DNR/DNI as well Objective - Exam Narrative Exam: General appearance: well-developed, well-nourished EENT: ATNC Respiratory: Present: Clear to Ascultation Cardiology: regular, S1S2 Gastrointestinal: normal, no tenderness, no distended Neurologic: other (unresponsive) Skin: intact - Vital Signs Vital signs: Vital Signs - 12hr 05/23/21 05/23/21 05/23/21 05:05 05:15 05:31 Pulse Rate 151 H 161 H 162 H Pulse Rate [ From Monitor] Respiratory 41 H 30 H Rate Blood Pressure 90/67 92/65 O2 Sat by Pulse 96 100 Oximetry 05/23/21 05/23/21 05/23/21 05:45 05:52 06:00 Pulse Rate 145 H 152 H 158 H Pulse Rate [ 158 H From Monitor] Respiratory 28 H 24 27 H Rate Blood Pressure 105/79 O2 Sat by Pulse 93 99 97 Oximetry 05/23/21 05/23/21 05/23/21 06:01 06:15 06:31 Pulse Rate 135 H 148 H 152 H Pulse Rate [ From Monitor] Respiratory 23 25 H 29 H Rate Blood Pressure 100/70 100/70 96/69 O2 Sat by Pulse 98 98 98 Oximetry 05/23/21 05/23/21 05/23/21 06:45 07:00 07:15 Pulse Rate 132 H 125 H 149 H Pulse Rate [ From Monitor] Respiratory 31 H 27 H 40 H Rate Blood Pressure 96/69 106/75 106/75 O2 Sat by Pulse 97 98 97 Oximetry 05/23/21 05/23/21 05/23/21 07:31 07:45 08:00 Pulse Rate 141 H 156 H 142 H Pulse Rate [ 153 H From Monitor] Respiratory 27 H 28 H 24 Rate Blood Pressure 108/77 108/77 117/85 O2 Sat by Pulse 96 97 97 Oximetry 05/23/21 05/23/21 05/23/21 08:15 08:30 08:36 Pulse Rate 137 H 127 H 136 H Pulse Rate [ From Monitor] Respiratory 25 H 26 H 25 H Rate Blood Pressure 117/85 126/84 126/84 O2 Sat by Pulse 96 97 96 Oximetry 05/23/21 05/23/21 05/23/21 08:45 09:00 09:15 Pulse Rate 150 H 146 H 144 H Pulse Rate [ From Monitor] Respiratory 45 H 26 H 26 H Rate Blood Pressure 126/84 120/78 120/78 O2 Sat by Pulse 97 98 98 Oximetry 05/23/21 05/23/21 05/23/21 09:30 09:45 10:00 Pulse Rate 133 H 126 H 138 H Pulse Rate [ From Monitor] Respiratory 36 H 24 27 H Rate Blood Pressure 117/91 117/91 122/78 O2 Sat by Pulse 96 98 97 Oximetry 05/23/21 05/23/21 05/23/21 10:15 10:30 10:45 Pulse Rate 162 H 137 H 129 H Pulse Rate [ From Monitor] Respiratory 42 H 26 H 28 H Rate Blood Pressure 122/78 128/78 128/78 O2 Sat by Pulse 98 98 99 Oximetry 05/23/21 05/23/21 05/23/21 11:00 11:14 11:16 Pulse Rate 133 H 129 H 128 H Pulse Rate [ From Monitor] Respiratory 26 H 25 H Rate Blood Pressure 109/72 109/72 109/72 O2 Sat by Pulse 98 99 Oximetry 05/23/21 05/23/21 05/23/21 11:31 11:45 11:47 Pulse Rate 126 H 126 H 134 H Pulse Rate [ From Monitor] Respiratory 25 H 27 H 28 H Rate Blood Pressure 126/99 120/83 103/53 O2 Sat by Pulse 100 99 99 Oximetry 05/23/21 05/23/21 05/23/21 12:00 12:01 12:15 Pulse Rate 111 H 87 Pulse Rate [ 153 H From Monitor] Respiratory 24 28 H 23 Rate Blood Pressure 97/55 97/55 O2 Sat by Pulse 97 100 100 Oximetry 05/23/21 05/23/21 05/23/21 12:30 12:45 13:00 Pulse Rate 107 H 120 H 99 H Pulse Rate [ From Monitor] Respiratory 21 25 H 21 Rate Blood Pressure 104/72 99/76 93/73 O2 Sat by Pulse 100 100 100 Oximetry 05/23/21 05/23/21 05/23/21 13:15 13:31 13:45 Pulse Rate 130 H 106 H 109 H Pulse Rate [ From Monitor] Respiratory 24 16 22 Rate Blood Pressure 93/73 110/59 101/61 O2 Sat by Pulse 100 100 100 Oximetry 05/23/21 05/23/21 05/23/21 14:00 14:15 14:31 Pulse Rate 107 H 113 H 106 H Pulse Rate [ From Monitor] Respiratory 25 H 31 H 22 Rate Blood Pressure 103/79 101/86 102/71 O2 Sat by Pulse 100 100 100 Oximetry 05/23/21 05/23/21 05/23/21 14:45 15:01 15:15 Pulse Rate 112 H 101 H 103 H Pulse Rate [ From Monitor] Respiratory 26 H 26 H 20 Rate Blood Pressure 98/77 98/69 110/62 O2 Sat by Pulse 100 100 100 Oximetry 05/23/21 05/23/21 05/23/21 15:31 15:45 16:01 Pulse Rate 121 H 134 H 125 H Pulse Rate [ From Monitor] Respiratory 16 30 H 31 H Rate Blood Pressure 124/64 105/63 97/64 O2 Sat by Pulse 98 99 99 Oximetry - Lab 05/23/21 05:02 05/23/21 05:02 Most recent lab results ABG pH 7.487 (7.320-7.450) H 05/23/21 04:40 ABG O2 Saturation 97.5 (0-100) 05/23/21 04:40 Calcium 8.5 mg/dL (8.4-10.2) 05/23/21 05:02 Magnesium 3.30 mg/dL (1.7-2.3) H 05/22/21 04:19 Medications & Allergies - Medications Allergies/Adverse Reactions: Allergies No Known Allergies Allergy (Verified 08/24/20 14:13) Home Medications: Home Medications Medication Instructions Recorded Confirmed Last Taken Type No Known Home Medications [No 04/30/21 04/30/21 Unknown History Reported Home Medications] Active Medications: Generic Name Dose Route Start Last Admin Trade Name Freq PRN Reason Stop Dose Admin Acetaminophen 650 mg 05/20/21 20:45 05/20/21 23:11 Acetaminophen 325 Mg/10.15 Ml Oral Liqd Unit Dose PO 650 mg Q6H PRN Administration Fever >101 Albuterol 2.5 mg 04/20/21 18:41 Albuterol 2.5 Mg/3 Ml Nebu IH Q3HRT PRN Shortness Of Breath Amlodipine Besylate 10 mg 05/01/21 10:00 05/23/21 11:45 Amlodipine 10 Mg Tab PO Not Given QDAY NAMAN Lipase/Protease/Amylase 1 each 04/25/21 15:16 Lipase 10,500/Protease 25,000/Amylase 43,750 (Units) Dr Willingham FEEDTUBE PRN PRN For Clogged Feeding Tube Apixaban 5 mg 04/29/21 10:00 05/23/21 11:13 Apixaban 5 Mg Tab PO 5 mg Q12HR NAMAN Administration Protocol Aspirin 81 mg 05/13/21 10:00 05/23/21 11:13 Aspirin Ec 81 Mg Tab PO 81 mg QDAY NAMAN Administration Atorvastatin Calcium 40 mg 04/20/21 22:00 05/22/21 21:41 Atorvastatin 40 Mg Tab PO 40 mg QHS NAMAN Administration Bisacodyl 10 mg 04/20/21 18:41 Bisacodyl 10 Mg Rect Supp [place] QDAY PRN Constipation Dextrose 0 ml 04/27/21 04:03 Dextrose 10% *Hypoglycemia IV PRN PRN Hypoglycemia Protocol Folic Acid 1 mg 04/20/21 18:59 05/23/21 11:13 Folic Acid 1 Mg Tab PO 1 mg QDAY NAMAN Administration Hydralazine HCl 10 mg 04/30/21 05:49 05/01/21 06:02 Hydralazine 20 Mg/1 Ml Inj IV 10 mg Q6HR PRN Administration Hypertension Hydralazine HCl 100 mg 05/01/21 12:00 05/23/21 14:47 Hydralazine 100 Mg Tab PO Not Given TID NAMAN Amiodarone HCl 900 mg/ 500 mls @ 33.333 mls/hr 05/23/21 06:00 05/23/21 11:49 Dextrose IV 0.5 mg/min DIRECT NAMAN 16.667 mls/hr Infusion Protocol 1 MG/MIN Insulin Human Isoph/Insulin Regular 22 unit 05/18/21 08:37 05/23/21 08:59 Insulin Nph/Regular 70/30 Inj SUB-Q 22 unit BIDDIAB NAMAN Administration Insulin Human Lispro 0 unit 04/27/21 04:00 05/23/21 12:06 Insulin Lispro 100 Unit/Ml SUB-Q 8 unit Q6HR NAMAN Administration Protocol Lansoprazole 30 mg 04/28/21 11:00 05/23/21 11:13 Lansoprazole 30 Mg Solutab FEEDTUBE 30 mg QDAY [facility] Administration Magnesium Hydroxide 30 ml 04/20/21 18:41 Magnesium Hydroxide (Mom) Oral Liqd Udc PO Q4H PRN Constipation Metoclopramide HCl 5 mg 05/15/21 09:00 Metoclopramide 10 Mg Tab PO Q6H PRN Nausea And Vomiting Metoprolol Tartrate 100 mg 04/29/21 12:00 05/23/21 11:14 Metoprolol Tartrate 50 Mg Tab PO 100 mg BID NAMAN Administration Naloxone HCl 0.1 mg 05/23/21 05:21 05/23/21 05:45 Naloxone 0.4 Mg/1 Ml Inj IV 0.1 mg Q2MIN PRN Administration Res Rate </= 8 or 02 SAT < 92% Ondansetron HCl 4 mg 04/20/21 18:41 Ondansetron 4 Mg/2 Ml Inj IV Q8H PRN Nausea And Vomiting Simple Syrup 15 ml 04/25/21 15:16 Simple Syrup 15 Ml FEEDTUBE PRN PRN Hypoglycemia Simple Syrup 30 ml 04/25/21 15:16 Simple Syrup 15 Ml FEEDTUBE PRN PRN Hypoglycemia Sodium Bicarbonate 325 mg 04/25/21 15:16 Sodium Bicarbonate 325 Mg Tab FEEDTUBE PRN PRN For Clogged Feeding Tube Sodium Chloride 10 ml 04/20/21 18:41 05/23/21 11:14 Sodium Chloride 0.9% 10 Ml Flush Syringe IV 10 ml PRN PRN Administration LINE FLUSH
--- NOTE | 2021-05-23 17:55 | Progress Note ---
<CATHY GRAJEDA - Last Filed: 05/23/21 17:49> Assessment and Plan Assessment and plan: 61-year-old male w/ hx of CVA with LHP, nicotine dependence, EtOH dependence who presented with worsening left-sided weakness and difficulty speaking for 2 days. Code stroke was initiated. Patient was also discovered to have new onset A. fib with RVR. Currently stable, requiring feeding tube awaiting safe discharge. Patient is uninsured and will require total care at this time. Exploring hospice, NOK will need to agree to stopping use of PEG tube. #Acute hypoxic respiratory failure S/p Ventimask -05/22 initiated on BiPAP -05/23 transition to nasal cannula CT chest, abdomen, pelvis without contrast (05/21/2021) revealing bilateral pulmonary infiltrates 04/27 COVID-19 PCR positive, 05/09 and 05/22 Covid PCR negative #Acute/subacute CVA #Acute metabolic encephalopathy-Multifactorial -CT with extensive microvascular changes; MRI brain showed subacute multi- infarct cerebellar and brain stem / luba -US carotid <50% stenosis -stroke likely embolic from A fib; continue eliquis and metoprolol, amiodarone for rate control -TTE showed diastolic dysfunction; normal EF and no evidence of PFO Continue aspirin and lipitor Physical therapy/Occupational Therapy recommended subacute rehab, however the patient is uninsured #Dysphagia #Dysarthria -PEG tube placed on 04/28/2021 -Tube feeding per nutrition #BHASKAR secondary to vasomotor nephropathy Creatinine increased from 1.7-3.5 -continue free water flushes via PEG tube -Renal ultrasound suggestive of medical renal disease -avoid nephrotoxins and renally dose medications -Nephrology consulted, assistance appreciated -S/p IVF #Hypernatremia -Continue management with free water flushes -Nephrology consulted; appreciate recs -Continue to monitor with daily BMP -S/p IVF #COVID-19 positive (resolved) #Type 2 diabetes mellitus -Hyperglycemia secondary to IV fluid use to treat hypernatremia -continue accuchecks and sliding scale -humulin increased to 22 units qday -continue tube feeding -goal glucose 140-180, will adjust insulin as needed #Atrial fibrillation with RVR, (new onset) -Started on amiodarone 05/23 -Cardiology consulted, appreciate recommendations -metoprolol tartrate 100 mg twice daily, and eliquis 5 mg every 12 hours -Per cardiology will continue amiodarone drip -Remote telemetry #Moderate protein calorie malnutrition -albumin 3.2 -nutrition consult, continue TF #Advanced care planning #Discharge planning -Legal next of kin Daughter Soniya Mabry ([phone]) still has not made a decision regarding PEG tube. Discussed with CM about contacting Adult Protective Services and starting the process for Guardianship for the patient. Family has contacted [facility] to evaluate the patient for inpatient hospice. -Time: +30 minutes The high probability of a clinically significant, sudden or life threatening deterioration of the [resp/cardio] system(s) required my full and direct at tention, intervention and personal management. The aggregate critical care time was [60] minutes. This time is in addition to time spent performing reported procedures but includes the following: [x] Data Review and interpretation [x] Patient assessment and monitoring of vital signs [x] Documentation [x] Medication orders and management Disposition Plan: transfer to floor Total Time Spent with Patient (Minutes): 60 History Interval history: Patient is 61-year-old male past medical history of CVA with LHP, nicotine dependence, EtOH dependence who presented to the ED with a complaint of worsenin g left-sided weakness and difficulty speaking for 2 days. Patient was transported to [facility] where a code stroke was initiated. Patient was also discovered to be in new onset A. fib with RVR. Patient converted with IV Cardizem to sinus rhythm. Admitted for further mx. Daily clinical course: 2/: Resumed care. 61 y/o male presented with slurred speech, left sided wea kness clinically no change, Order for TF, resumed eliquis, wait for CM to arrange placement. PT recommended [facility]. 2/2: Tolerating tube feeding, continue to follow renal function. Discussed with patient daughter about placement. Patient remains nonverbal with left-sided hemiparesis. MRI and neuro eval pending. May 01, 2021 Right-sided weakness persists Patient is s/p PEG tube placement Tolerating PEG tube feedings May 02, 2021 Right-sided weakness persists S/p PEG tube placement Confused Waiting for placement to subacute rehab May 03, 2021 S/p PEG tube placement Right-sided weakness persists Confused, Waiting for placement to subacute rehab May 04, 2021 S/p PEG tube placement Right-sided weakness persists, Confused Waiting for placement to subacute rehab/SNF Discussed with family the diagnosis and prognosis 05/05/21; awaiting placement Mild elevation of LFTs, multifactorial Uncontrolled blood sugars, increase Lantus to 26 units nightly PT recommend subacute rehab/SNF 05/06/21: Patient is tolerating PEG feeds, clinically stable for discharge Pending placement, barrier to discharge, no resources and uninsured CM trying for [facility]. I spoke with patient's daughter Ms. Byrnes At [phone] discussed in detail patient's condition, mild improvement, tests and reports, consultants recommendations, treatment and discharge planning issues, she had many questions answered all of them and encouraged her to call back if she has new concerns, 05/07/21; pending placement 05/08; pending placement 05/09; continue current management, awaiting placement, Patient is medically stable for discharge 05/10 continue current management;, pending placement 05/11; awaiting placement 05/12; awaiting placement. Case management trying for hospice 05/13: No acute events overnight. Patient in no acute distress, tube feeds running. 05/14: No acute events overnight. Patient opens his eyes to auditory stimuli, tube feeds running. 05/15: No acute events overnight. Patient opens his eyes to auditory stimuli, does not respond to commands. 05/16: No acute events overnight. Patient sleep today. Does not respond to commands. 05/17: No acute events overnight. Patient more responsive to auditory stimuli. Still not following commands. 05/18: No acute events overnight. Patient responsive to auditory stimuli but does not follow commands. 05/19: No acute events overnight. Patient responsive to auditory stimuli but does not follow commands. 05/20: No acute events overnight. 05/21: Patient had episodes of desaturations requiring Ventimask, fever as high as 102.9 F, and tachycardia to 150s. 05/22: Patient had episodes of tachycardia to 130s. 05/23: Overnight patient was transferred to ICU due to respiratory distress and heart rate in the 150-160 range on BiPAP. Patient remained on BiPAP although patient had altered mental status. Patient transition to nasal cannula. He will be transferred back to the floor today heart rate is better controlled after beta-yun given. Patient taken off of IV fluid and will attempt to maintain mild hypernatremia free water flush Hospitalist Physical - Constitutional Vitals: Temp Pulse Resp BP Pulse Ox 99.7 F H 118 H 25 H 93/54 98 05/22/21 22:19 05/23/21 17:15 05/23/21 17:15 05/23/21 17:15 05/23/21 17:15 General appearance: Present: no acute distress, well-nourished, other (Dysarthria, confused) - EENT Eyes: Present: PERRL, EOM intact ENT: poor dentition - Neck Neck: Present: normal ROM - Respiratory Respiratory effort: normal Respiratory: bilateral: CTA - Cardiovascular Rhythm: irregularly irregular Heart Sounds: Present: S1 & S2. Absent: systolic murmur, diastolic murmur - Extremities Extremities: no ischemia, pulses intact, pulses symmetrical, No edema, normal temperature, normal color Peripheral Pulses: within normal limits - Abdominal General gastrointestinal: soft, non-tender, normal bowel sounds - Integumentary Integumentary: Present: warm, dry - Psychiatric Psychiatric: other - Neurologic Neurologic: other - Allied Health Allied health notes reviewed: nursing, RT, social work, case management HEART Score - HEART Score Troponin: Troponin T 0.011 ng/mL (0.00-0.029) 04/20/21 17:44 Results - Labs CBC & Chem 7: 05/23/21 05:02 05/23/21 05:02 Labs: Laboratory Last Values WBC 7.4 K/mm3 (4.5-11.0) 05/23/21 05:02 RBC 4.23 M/mm3 (3.65-5.03) 05/23/21 05:02 Hgb 11.5 gm/dl (11.8-15.2) L 05/23/21 05:02 Hct 37.0 % (35.5-45.6) 05/23/21 05:02 MCV 88 fl (84-94) 05/23/21 05:02 MCH 27 pg (28-32) L 05/23/21 05:02 MCHC 31 % (32-34) L 05/23/21 05:02 RDW 13.2 % (13.2-15.2) 05/23/21 05:02 Plt Count 105 K/mm3 (140-440) L 05/23/21 05:02 Lymph % (Auto) 16.8 % (13.4-35.0) 05/23/21 05:02 [place] % (Auto) 8.8 % (0.0-7.3) H 05/23/21 05:02 Eos % (Auto) 0.5 % (0.0-4.3) 05/23/21 05:02 Baso % (Auto) 0.2 % (0.0-1.8) 05/23/21 05:02 Lymph # (Auto) 1.2 K/mm3 (1.2-5.4) 05/23/21 05:02 Churchill # (Auto) 0.6 K/mm3 (0.0-0.8) 05/23/21 05:02 Eos # (Auto) 0.0 K/mm3 (0.0-0.4) 05/23/21 05:02 Baso # (Auto) 0.0 K/mm3 (0.0-0.1) 05/23/21 05:02 Add Manual Diff Complete 05/22/21 04:19 Total Counted 100 05/22/21 04:19 Seg Neutrophils % 73.7 % (40.0-70.0) H 05/23/21 05:02 Seg Neuts % (Manual) 85.0 % (40.0-70.0) H 05/22/21 04:19 Band Neutrophils % 0 % 05/22/21 04:19 Lymphocytes % (Manual) 14.0 % (13.4-35.0) 05/22/21 04:19 Reactive Lymphs % (Man) 0 % 05/22/21 04:19 Monocytes % (Manual) 1.0 % (0.0-7.3) 05/22/21 04:19 Eosinophils % (Manual) 0 % (0.0-4.3) 05/22/21 04:19 Basophils % (Manual) 0 % (0.0-1.8) 05/22/21 04:19 Metamyelocytes % 0 % 05/22/21 04:19 Myelocytes % 0 % 05/22/21 04:19 Promyelocytes % 0 % 05/22/21 04:19 Blast Cells % 0 % 05/22/21 04:19 Nucleated RBC % Not Reportable 05/22/21 04:19 Seg Neutrophils # 5.4 K/mm3 (1.8-7.7) 05/23/21 05:02 Seg Neutrophils # Man 8.8 K/mm3 (1.8-7.7) H 05/22/21 04:19 Band Neutrophils # 0.0 K/mm3 05/22/21 04:19 Lymphocytes # (Manual) 1.4 K/mm3 (1.2-5.4) 05/22/21 04:19 Abs React Lymphs (Man) 0.0 K/mm3 05/22/21 04:19 Monocytes # (Manual) 0.1 K/mm3 (0.0-0.8) 05/22/21 04:19 Eosinophils # (Manual) 0.0 K/mm3 (0.0-0.4) 05/22/21 04:19 Basophils # (Manual) 0.0 K/mm3 (0.0-0.1) 05/22/21 04:19 Metamyelocytes # 0.0 K/mm3 05/22/21 04:19 Myelocytes # 0.0 K/mm3 05/22/21 04:19 Promyelocytes # 0.0 K/mm3 05/22/21 04:19 Blast Cells # 0.0 K/mm3 05/22/21 04:19 WBC Morphology Not Reportable 05/22/21 04:19 Hypersegmented Neuts Not Reportable 05/22/21 04:19 Hyposegmented Neuts Not Reportable 05/22/21 04:19 Hypogranular Neuts Not Reportable 05/22/21 04:19 Smudge Cells Not Reportable 05/22/21 04:19 Toxic Granulation Not Reportable 05/22/21 04:19 Toxic Vacuolation Not Reportable 05/22/21 04:19 Dohle Bodies Not Reportable 05/22/21 04:19 Pelger-Huet Anomaly Not Reportable 05/22/21 04:19 Delfin Rods Not Reportable 05/22/21 04:19 Platelet Estimate Consistent w auto 05/22/21 04:19 Clumped Platelets Not Reportable 05/22/21 04:19 Plt Clumps, EDTA Not Reportable 05/22/21 04:19 Large Platelets Not Reportable 05/22/21 04:19 Giant Platelets Not Reportable 05/22/21 04:19 Platelet Satelliting Not Reportable 05/22/21 04:19 Plt Morphology Comment Not Reportable 05/22/21 04:19 RBC Morphology Normal 05/22/21 04:19 Dimorphic RBCs Not Reportable 05/22/21 04:19 Polychromasia Not Reportable 05/22/21 04:19 Hypochromasia Not Reportable 05/22/21 04:19 Poikilocytosis Not Reportable 05/22/21 04:19 Anisocytosis Not Reportable 05/22/21 04:19 Microcytosis Not Reportable 05/22/21 04:19 Macrocytosis Not Reportable 05/22/21 04:19 Spherocytes Not Reportable 05/22/21 04:19 Pappenheimer Bodies Not Reportable 05/22/21 04:19 Sickle Cells Not Reportable 05/22/21 04:19 Target Cells Not Reportable 05/22/21 04:19 Tear Drop Cells Not Reportable 05/22/21 04:19 Ovalocytes Not Reportable 05/22/21 04:19 Helmet Cells Not Reportable 05/22/21 04:19 [place] Bodies Not Reportable 05/22/21 04:19 [place] Rings Not Reportable 05/22/21 04:19 [place] Cells Not Reportable 05/22/21 04:19 Bite Cells Not Reportable 05/22/21 04:19 Crenated Cell Not Reportable 05/22/21 04:19 Elliptocytes Not Reportable 05/22/21 04:19 Acanthocytes (Spur) Not Reportable 05/22/21 04:19 Rouleaux Not Reportable 05/22/21 04:19 Hemoglobin C Crystals Not Reportable 05/22/21 04:19 Schistocytes Not Reportable 05/22/21 04:19 Malaria parasites Not Reportable 05/22/21 04:19 Giovanni Bodies Not Reportable 05/22/21 04:19 Hem Pathologist Commnt No 05/22/21 04:19 PT 14.1 Sec. (12.2-14.9) 04/28/21 13:53 INR 0.98 (0.87-1.13) 04/28/21 13:53 APTT 31.8 Sec. (24.2-36.6) 04/28/21 13:53 Thrombin Time 16.2 Sec. (15.1-19.6) 04/20/21 17:44 D-Dimer 1707.24 ng/mlDDU (0-234) H 05/21/21 17:47 ABG pH 7.487 (7.320-7.450) H 05/23/21 04:40 POC ABG pCO2 32.9 mmHg (32.0-48.0) 05/23/21 04:40 POC ABG pO2 92.7 mmHg (83-108) 05/23/21 04:40 POC ABG HCO3 24.3 05/23/21 04:40 ABG O2 Saturation 97.5 (0-100) 05/23/21 04:40 POC ABG Base Excess 1.5 05/23/21 04:40 ABG Hemoglobin 12.8 (12.0-17.5) 05/23/21 04:40 ABG Oxyhemoglobin 97.1 (94-98) 05/23/21 04:40 ABG Methemoglobin 0.3 (0.0-1.5) 05/23/21 04:40 Carboxyhemoglobin 0.1 (0.5-1.5) L 05/23/21 04:40 FiO2 % 30 05/23/21 04:40 Sodium 149 mmol/L (137-145) H 05/23/21 05:02 Potassium 4.3 mmol/L (3.6-5.0) 05/23/21 05:02 Chloride 116.3 mmol/L (98-107) H 05/23/21 05:02 Carbon Dioxide 19 mmol/L (22-30) L 05/23/21 05:02 Anion Gap 18 mmol/L 05/23/21 05:02 BUN 68 mg/dL (9-20) H 05/23/21 05:02 Creatinine 2.0 mg/dL (0.8-1.3) H 05/23/21 05:02 Estimated GFR 41 ml/min 05/23/21 05:02 BUN/Creatinine Ratio 34 % 05/23/21 05:02 Glucose 303 mg/dL (75-100) H 05/23/21 05:02 POC Glucose 281 mg/dL (70-105) H 05/23/21 17:28 Calcium 8.5 mg/dL (8.4-10.2) 05/23/21 05:02 Magnesium 3.30 mg/dL (1.7-2.3) H 05/22/21 04:19 Ferritin 1180.0 ng/mL (30.0-300.0) H 05/21/21 17:47 Total Bilirubin 0.20 mg/dL (0.1-1.2) 05/06/21 05:32 AST 25 units/L (5-40) 05/06/21 05:32 ALT 64 units/L (7-56) H 05/06/21 05:32 Alkaline Phosphatase 168 units/L (35-129) H 05/06/21 05:32 Lactate Dehydrogenase 287 units/L (91-180) H 04/28/21 09:29 Total Creatine Kinase 79 units/L (55-170) 04/20/21 17:44 Total Creatine Kinase 81 units/L (55-170) 04/20/21 17:44 CK-MB (CK-2) 2.1 ng/mL (0.0-4.0) 04/20/21 17:44 CK-MB (CK-2) Rel Index 2.6 (0-4) 04/20/21 17:44 Troponin T 0.011 ng/mL (0.00-0.029) 04/20/21 17:44 C-Reactive Protein 35.60 mg/dL (0.00-1.30) H 05/21/21 17:47 Total Protein 7.4 g/dL (6.3-8.2) 05/06/21 05:32 Albumin 3.2 g/dL (3.9-5) L 05/06/21 05:32 Albumin/Globulin Ratio 0.8 % 05/06/21 05:32 TSH 1.040 mlU/mL (0.270-4.200) 04/20/21 19:42 Free T4 1.16 ng/dL (0.76-1.46) 04/20/21 19:42 Urine Color Saira (Yellow) 04/26/21 Unknown Urine Turbidity Cloudy (Clear) 04/26/21 Unknown Urine pH 5.0 (5.0-7.0) 04/26/21 Unknown Ur Specific [place] 1.020 (1.003-1.030) 04/26/21 Unknown Urine Protein 100 mg/dl mg/dL (Negative) 04/26/21 Unknown Urine Glucose (UA) >=500 mg/dL (Negative) 04/26/21 Unknown Urine Ketones Neg mg/dL (Negative) 04/26/21 Unknown Urine Blood Mod (Negative) 04/26/21 Unknown Urine Nitrite Neg (Negative) 04/26/21 Unknown Urine Bilirubin Neg (Negative) 04/26/21 Unknown Urine Urobilinogen 2.0 mg/dL (<2.0) 04/26/21 Unknown Ur Leukocyte Esterase Neg (Negative) 04/26/21 Unknown Urine WBC (Auto) 1.0 /HPF (0.0-6.0) 04/20/21 18:19 Urine RBC (Auto) 3.0 /HPF (0.0-6.0) 04/20/21 18:19 U Epithel Cells (Auto) < 1.0 /HPF (0-13.0) 04/20/21 18:19 Hyaline Casts 5 /LPF 04/20/21 18:19 Urine Mucus Few /HPF 04/20/21 18:19 Random Vancomycin 9.7 ug/mL (0-40.0) 05/23/21 05:02 Plasma/Serum Alcohol < 0.01 % (0-0.07) 04/20/21 17:44 Coronavirus (PCR) Negative (Negative) 05/22/21 Unknown Microbiology: Microbiology 05/20/21 08:28 Peripheral/Venous Blood Culture - Preliminary NO GROWTH AFTER 72 HOURS 05/20/21 08:28 Peripheral/Venous Blood Culture - Preliminary NO GROWTH AFTER 72 HOURS Bravo/IV: Voiding Method Condom Catheter Active Medications - Current Medications Current Medications: Generic Name Dose Route Start Last Admin Trade Name Freq PRN Reason Stop Dose Admin Acetaminophen 650 mg 05/20/21 20:45 05/20/21 23:11 Acetaminophen 325 Mg/10.15 Ml Oral Liqd Unit Dose PO 650 mg Q6H PRN Administration Fever >101 Albuterol 2.5 mg 04/20/21 18:41 Albuterol 2.5 Mg/3 Ml Nebu IH Q3HRT PRN Shortness Of Breath Amlodipine Besylate 10 mg 05/01/21 10:00 05/23/21 11:45 Amlodipine 10 Mg Tab PO Not Given QDAY NAMAN Lipase/Protease/Amylase 1 each 04/25/21 15:16 Lipase 10,500/Protease 25,000/Amylase 43,750 (Units) Dr Willingham FEEDTUBE PRN PRN For Clogged Feeding Tube Apixaban 5 mg 04/29/21 10:00 05/23/21 11:13 Apixaban 5 Mg Tab PO 5 mg Q12HR NAMAN Administration Protocol Aspirin 81 mg 05/13/21 10:00 05/23/21 11:13 Aspirin Ec 81 Mg Tab PO 81 mg QDAY NAMAN Administration Atorvastatin Calcium 40 mg 04/20/21 22:00 05/22/21 21:41 Atorvastatin 40 Mg Tab PO 40 mg QHS NAMAN Administration Bisacodyl 10 mg 04/20/21 18:41 Bisacodyl 10 Mg Rect Supp CA QDAY PRN Constipation Dextrose 0 ml 04/27/21 04:03 Dextrose 10% *Hypoglycemia IV PRN PRN Hypoglycemia Protocol Folic Acid 1 mg 04/20/21 18:59 05/23/21 11:13 Folic Acid 1 Mg Tab PO 1 mg QDAY NAMAN Administration Hydralazine HCl 10 mg 04/30/21 05:49 05/01/21 06:02 Hydralazine 20 Mg/1 Ml Inj IV 10 mg Q6HR PRN Administration Hypertension Hydralazine HCl 100 mg 05/01/21 12:00 05/23/21 14:47 Hydralazine 100 Mg Tab PO Not Given TID NAMAN Amiodarone HCl 900 mg/ 500 mls @ 33.333 mls/hr 05/23/21 06:00 05/23/21 11:49 Dextrose IV 0.5 mg/min DIRECT NAMAN 16.667 mls/hr Infusion Protocol 1 MG/MIN Insulin Human Isoph/Insulin Regular 22 unit 05/18/21 08:37 05/23/21 17:28 Insulin Nph/Regular 70/30 Inj SUB-Q 22 unit BIDDIAB NAMAN Administration Insulin Human Lispro 0 unit 04/27/21 04:00 05/23/21 17:30 Insulin Lispro 100 Unit/Ml SUB-Q 6 unit Q6HR NAMAN Administration Protocol Lansoprazole 30 mg 04/28/21 11:00 05/23/21 11:13 Lansoprazole 30 Mg Solutab FEEDTUBE 30 mg QDAY NAMAN Administration Magnesium Hydroxide 30 ml 04/20/21 18:41 Magnesium Hydroxide (Mom) Oral Liqd Udc PO Q4H PRN Constipation Metoclopramide HCl 5 mg 05/15/21 09:00 Metoclopramide 10 Mg Tab PO Q6H PRN Nausea And Vomiting Metoprolol Tartrate 100 mg 04/29/21 12:00 05/23/21 11:14 Metoprolol Tartrate 50 Mg Tab PO 100 mg BID NAMAN Administration Naloxone HCl 0.1 mg 05/23/21 05:21 05/23/21 05:45 Naloxone 0.4 Mg/1 Ml Inj IV 0.1 mg Q2MIN PRN Administration Res Rate </= 8 or 02 SAT < 92% Ondansetron HCl 4 mg 04/20/21 18:41 Ondansetron 4 Mg/2 Ml Inj IV Q8H PRN Nausea And Vomiting Simple Syrup 15 ml 04/25/21 15:16 Simple Syrup 15 Ml FEEDTUBE PRN PRN Hypoglycemia Simple Syrup 30 ml 04/25/21 15:16 Simple Syrup 15 Ml FEEDTUBE PRN PRN Hypoglycemia Sodium Bicarbonate 325 mg 04/25/21 15:16 Sodium Bicarbonate 325 Mg Tab FEEDTUBE PRN PRN For Clogged Feeding Tube Sodium Chloride 10 ml 04/20/21 18:41 05/23/21 11:14 Sodium Chloride 0.9% 10 Ml Flush Syringe IV 10 ml PRN PRN Administration LINE FLUSH Nutrition/Malnutrition Assess - Dietary Evaluation Nutrition/Malnutrition Findings: Nutrition Notes Start: 04/23/21 12:36 Freq: Status: Active Protocol: Document 05/23/21 14:30 ERNESTO (Rec: 05/23/21 14:38 [facility] [id number]) Nutrition Notes Initial or Follow up Reassessment Current Diagnosis Acute Kidney Injury,Diabetes, Respiratory Failure,Stroke Other Pertinent Diagnosis Metabolic encephalopathy, Dysphagia, COVID-19 Current Diet TF - Glucerna 1.2 at 63ml/hr Labs/Tests Na 149 BUN 68 Cr 2 BG 303 Pertinent Medications Amiodarone gtt Height 6 ft 3 in Weight 79.5 kg [place] Body Weight (kg) 89.09 BMI 21.9 Weight Status Appropriate Subjective/Other Information Pt transferred from 3A this am sec to [facility]. Currently on BiPap support. Per RN, pt tolerating TF at goal rate and receives 200ml water flush q4h. Percent of energy/protein needs met: 90% energy 95% pro Burn Absent Trauma Absent #1 Nutrition Diagnosis Inadequate oral intake Diagnosis Progress(for reassessment Continues documentation) Is patient on ventilator? No Is Patient Ambulatory and/or Out of Bed No REE-([place]-confined to bed) 2020.748 Calculation Used for Recommendations [place] Additional Notes Pro needs 1.2-2g/k-159g/ day Fluid needs per MD Nutrition Intervention Nutrition Support: Increase TF goal rate to 70ml/ hr with 200ml water flush q4h. When hypernatremia resolved, provide 110ml water flush q4h . Kcal 2,016 Protein (gm) 101 Carbohydrates (gm) 192 Fat (gm) 101 Fluid (mL) 1,352 Fiber (gm) 27 Goal #1 TF tolerance Goal #2 TF to meet at least 75% energy and pro needs Follow-Up By: 05/30/21 Additional Comments F/U: stable TF, wt, resp status, Na lab/water flushes <RIDGE WRIGHT - Last Filed: 05/23/21 20:34> Assessment and Plan Assessment and plan: I saw and evaluated the patient. I agree with the findings and the plan of care as documented in the Nurse Practitioner's~note, with the following corrections and additions. Hospitalist Physical - Constitutional Vitals: Temp Pulse Resp BP Pulse Ox 99.7 F H 108 H 26 H 93/55 98 05/22/21 22:19 05/23/21 17:45 05/23/21 17:45 05/23/21 18:01 05/23/21 18:01 HEART Score - HEART Score Troponin: Troponin T 0.011 ng/mL (0.00-0.029) 04/20/21 17:44 Results - Labs CBC & Chem 7: 05/23/21 05:02 05/23/21 05:02 Labs: Laboratory Last Values WBC 7.4 K/mm3 (4.5-11.0) 05/23/21 05:02 RBC 4.23 M/mm3 (3.65-5.03) 05/23/21 05:02 Hgb 11.5 gm/dl (11.8-15.2) L 05/23/21 05:02 Hct 37.0 % (35.5-45.6) 05/23/21 05:02 MCV 88 fl (84-94) 05/23/21 05:02 MCH 27 pg (28-32) L 05/23/21 05:02 MCHC 31 % (32-34) L 05/23/21 05:02 RDW 13.2 % (13.2-15.2) 05/23/21 05:02 Plt Count 105 K/mm3 (140-440) L 05/23/21 05:02 Lymph % (Auto) 16.8 % (13.4-35.0) 05/23/21 05:02 [place] % (Auto) 8.8 % (0.0-7.3) H 05/23/21 05:02 Eos % (Auto) 0.5 % (0.0-4.3) 05/23/21 05:02 Baso % (Auto) 0.2 % (0.0-1.8) 05/23/21 05:02 Lymph # (Auto) 1.2 K/mm3 (1.2-5.4) 05/23/21 05:02 [place] # (Auto) 0.6 K/mm3 (0.0-0.8) 05/23/21 05:02 Eos # (Auto) 0.0 K/mm3 (0.0-0.4) 05/23/21 05:02 Baso # (Auto) 0.0 K/mm3 (0.0-0.1) 05/23/21 05:02 Add Manual Diff Complete 05/22/21 04:19 Total Counted 100 05/22/21 04:19 Seg Neutrophils % 73.7 % (40.0-70.0) H 05/23/21 05:02 Seg Neuts % (Manual) 85.0 % (40.0-70.0) H 05/22/21 04:19 Band Neutrophils % 0 % 05/22/21 04:19 Lymphocytes % (Manual) 14.0 % (13.4-35.0) 05/22/21 04:19 Reactive Lymphs % (Man) 0 % 05/22/21 04:19 Monocytes % (Manual) 1.0 % (0.0-7.3) 05/22/21 04:19 Eosinophils % (Manual) 0 % (0.0-4.3) 05/22/21 04:19 Basophils % (Manual) 0 % (0.0-1.8) 05/22/21 04:19 Metamyelocytes % 0 % 05/22/21 04:19 Myelocytes % 0 % 05/22/21 04:19 Promyelocytes % 0 % 05/22/21 04:19 Blast Cells % 0 % 05/22/21 04:19 Nucleated RBC % Not Reportable 05/22/21 04:19 Seg Neutrophils # 5.4 K/mm3 (1.8-7.7) 05/23/21 05:02 Seg Neutrophils # Man 8.8 K/mm3 (1.8-7.7) H 05/22/21 04:19 Band Neutrophils # 0.0 K/mm3 05/22/21 04:19 Lymphocytes # (Manual) 1.4 K/mm3 (1.2-5.4) 05/22/21 04:19 Abs React Lymphs (Man) 0.0 K/mm3 05/22/21 04:19 Monocytes # (Manual) 0.1 K/mm3 (0.0-0.8) 05/22/21 04:19 Eosinophils # (Manual) 0.0 K/mm3 (0.0-0.4) 05/22/21 04:19 Basophils # (Manual) 0.0 K/mm3 (0.0-0.1) 05/22/21 04:19 Metamyelocytes # 0.0 K/mm3 05/22/21 04:19 Myelocytes # 0.0 K/mm3 05/22/21 04:19 Promyelocytes # 0.0 K/mm3 05/22/21 04:19 Blast Cells # 0.0 K/mm3 05/22/21 04:19 WBC Morphology Not Reportable 05/22/21 04:19 Hypersegmented Neuts Not Reportable 05/22/21 04:19 Hyposegmented Neuts Not Reportable 05/22/21 04:19 Hypogranular Neuts Not Reportable 05/22/21 04:19 Smudge Cells Not Reportable 05/22/21 04:19 Toxic Granulation Not Reportable 05/22/21 04:19 Toxic Vacuolation Not Reportable 05/22/21 04:19 Dohle Bodies Not Reportable 05/22/21 04:19 Pelger-Huet Anomaly Not Reportable 05/22/21 04:19 Delfin Rods Not Reportable 05/22/21 04:19 Platelet Estimate Consistent w auto 05/22/21 04:19 Clumped Platelets Not Reportable 05/22/21 04:19 Plt Clumps, EDTA Not Reportable 05/22/21 04:19 Large Platelets Not Reportable 05/22/21 04:19 Giant Platelets Not Reportable 05/22/21 04:19 Platelet Satelliting Not Reportable 05/22/21 04:19 Plt Morphology Comment Not Reportable 05/22/21 04:19 RBC Morphology Normal 05/22/21 04:19 Dimorphic RBCs Not Reportable 05/22/21 04:19 Polychromasia Not Reportable 05/22/21 04:19 Hypochromasia Not Reportable 05/22/21 04:19 Poikilocytosis Not Reportable 05/22/21 04:19 Anisocytosis Not Reportable 05/22/21 04:19 Microcytosis Not Reportable 05/22/21 04:19 Macrocytosis Not Reportable 05/22/21 04:19 Spherocytes Not Reportable 05/22/21 04:19 Pappenheimer Bodies Not Reportable 05/22/21 04:19 Sickle Cells Not Reportable 05/22/21 04:19 Target Cells Not Reportable 05/22/21 04:19 Tear Drop Cells Not Reportable 05/22/21 04:19 Ovalocytes Not Reportable 05/22/21 04:19 Helmet Cells Not Reportable 05/22/21 04:19 [place] Bodies Not Reportable 05/22/21 04:19 [place] Rings Not Reportable 05/22/21 04:19 Frank Cells Not Reportable 05/22/21 04:19 Bite Cells Not Reportable 05/22/21 04:19 Crenated Cell Not Reportable 05/22/21 04:19 Elliptocytes Not Reportable 05/22/21 04:19 Acanthocytes (Spur) Not Reportable 05/22/21 04:19 Rouleaux Not Reportable 05/22/21 04:19 Hemoglobin C Crystals Not Reportable 05/22/21 04:19 Schistocytes Not Reportable 05/22/21 04:19 Malaria parasites Not Reportable 05/22/21 04:19 Giovanni Bodies Not Reportable 05/22/21 04:19 Hem Pathologist Commnt No 05/22/21 04:19 PT 14.1 Sec. (12.2-14.9) 04/28/21 13:53 INR 0.98 (0.87-1.13) 04/28/21 13:53 APTT 31.8 Sec. (24.2-36.6) 04/28/21 13:53 Thrombin Time 16.2 Sec. (15.1-19.6) 04/20/21 17:44 D-Dimer 1707.24 ng/mlDDU (0-234) H 05/21/21 17:47 ABG pH 7.487 (7.320-7.450) H 05/23/21 04:40 POC ABG pCO2 32.9 mmHg (32.0-48.0) 05/23/21 04:40 POC ABG pO2 92.7 mmHg (83-108) 05/23/21 04:40 POC ABG HCO3 24.3 05/23/21 04:40 ABG O2 Saturation 97.5 (0-100) 05/23/21 04:40 POC ABG Base Excess 1.5 05/23/21 04:40 ABG Hemoglobin 12.8 (12.0-17.5) 05/23/21 04:40 ABG Oxyhemoglobin 97.1 (94-98) 05/23/21 04:40 ABG Methemoglobin 0.3 (0.0-1.5) 05/23/21 04:40 Carboxyhemoglobin 0.1 (0.5-1.5) L 05/23/21 04:40 FiO2 % 30 05/23/21 04:40 Sodium 149 mmol/L (137-145) H 05/23/21 05:02 Potassium 4.3 mmol/L (3.6-5.0) 05/23/21 05:02 Chloride 116.3 mmol/L (98-107) H 05/23/21 05:02 Carbon Dioxide 19 mmol/L (22-30) L 05/23/21 05:02 Anion Gap 18 mmol/L 05/23/21 05:02 BUN 68 mg/dL (9-20) H 05/23/21 05:02 Creatinine 2.0 mg/dL (0.8-1.3) H 05/23/21 05:02 Estimated GFR 41 ml/min 05/23/21 05:02 BUN/Creatinine Ratio 34 % 05/23/21 05:02 Glucose 303 mg/dL (75-100) H 05/23/21 05:02 POC Glucose 281 mg/dL (70-105) H 05/23/21 17:28 Calcium 8.5 mg/dL (8.4-10.2) 05/23/21 05:02 Magnesium 3.30 mg/dL (1.7-2.3) H 05/22/21 04:19 Ferritin 1180.0 ng/mL (30.0-300.0) H 05/21/21 17:47 Total Bilirubin 0.20 mg/dL (0.1-1.2) 05/06/21 05:32 AST 25 units/L (5-40) 05/06/21 05:32 ALT 64 units/L (7-56) H 05/06/21 05:32 Alkaline Phosphatase 168 units/L (35-129) H 05/06/21 05:32 Lactate Dehydrogenase 287 units/L (91-180) H 04/28/21 09:29 Total Creatine Kinase 79 units/L (55-170) 04/20/21 17:44 Total Creatine Kinase 81 units/L (55-170) 04/20/21 17:44 CK-MB (CK-2) 2.1 ng/mL (0.0-4.0) 04/20/21 17:44 CK-MB (CK-2) Rel Index 2.6 (0-4) 04/20/21 17:44 Troponin T 0.011 ng/mL (0.00-0.029) 04/20/21 17:44 C-Reactive Protein 35.60 mg/dL (0.00-1.30) H 05/21/21 17:47 Total Protein 7.4 g/dL (6.3-8.2) 05/06/21 05:32 Albumin 3.2 g/dL (3.9-5) L 05/06/21 05:32 Albumin/Globulin Ratio 0.8 % 05/06/21 05:32 TSH 1.040 mlU/mL (0.270-4.200) 04/20/21 19:42 Free T4 1.16 ng/dL (0.76-1.46) 04/20/21 19:42 Urine Color Saira (Yellow) 04/26/21 Unknown Urine Turbidity Cloudy (Clear) 04/26/21 Unknown Urine pH 5.0 (5.0-7.0) 04/26/21 Unknown Ur Specific [place] 1.020 (1.003-1.030) 04/26/21 Unknown Urine Protein 100 mg/dl mg/dL (Negative) 04/26/21 Unknown Urine Glucose (UA) >=500 mg/dL (Negative) 04/26/21 Unknown Urine Ketones Neg mg/dL (Negative) 04/26/21 Unknown Urine Blood Mod (Negative) 04/26/21 Unknown Urine Nitrite Neg (Negative) 04/26/21 Unknown Urine Bilirubin Neg (Negative) 04/26/21 Unknown Urine Urobilinogen 2.0 mg/dL (<2.0) 04/26/21 Unknown Ur Leukocyte Esterase Neg (Negative) 04/26/21 Unknown Urine WBC (Auto) 1.0 /HPF (0.0-6.0) 04/20/21 18:19 Urine RBC (Auto) 3.0 /HPF (0.0-6.0) 04/20/21 18:19 U Epithel Cells (Auto) < 1.0 /HPF (0-13.0) 04/20/21 18:19 Hyaline Casts 5 /LPF 04/20/21 18:19 Urine Mucus Few /HPF 04/20/21 18:19 Random Vancomycin 9.7 ug/mL (0-40.0) 05/23/21 05:02 Plasma/Serum Alcohol < 0.01 % (0-0.07) 04/20/21 17:44 Coronavirus (PCR) Negative (Negative) 05/22/21 Unknown Microbiology: Microbiology 05/20/21 08:28 Peripheral/Venous Blood Culture - Preliminary NO GROWTH AFTER 72 HOURS 05/20/21 08:28 Peripheral/Venous Blood Culture - Preliminary NO GROWTH AFTER 72 HOURS Bravo/IV: Voiding Method Condom Catheter Active Medications - Current Medications Current Medications: Generic Name Dose Route Start Last Admin Trade Name Freq PRN Reason Stop Dose Admin Acetaminophen 650 mg 05/20/21 20:45 05/20/21 23:11 Acetaminophen 325 Mg/10.15 Ml Oral Liqd Unit Dose PO 650 mg Q6H PRN Administration Fever >101 Albuterol 2.5 mg 04/20/21 18:41 Albuterol 2.5 Mg/3 Ml Nebu IH Q3HRT PRN Shortness Of Breath Amlodipine Besylate 10 mg 05/01/21 10:00 05/23/21 11:45 Amlodipine 10 Mg Tab PO Not Given QDAY NAMAN Lipase/Protease/Amylase 1 each 04/25/21 15:16 Lipase 10,500/Protease 25,000/Amylase 43,750 (Units) Dr Willingham FEEDTUBE PRN PRN For Clogged Feeding Tube Apixaban 5 mg 04/29/21 10:00 05/23/21 11:13 Apixaban 5 Mg Tab PO 5 mg Q12HR NAMAN Administration Protocol Aspirin 81 mg 05/13/21 10:00 05/23/21 11:13 Aspirin Ec 81 Mg Tab PO 81 mg QDAY NAMAN Administration Atorvastatin Calcium 40 mg 04/20/21 22:00 05/22/21 21:41 Atorvastatin 40 Mg Tab PO 40 mg QHS NAMAN Administration Bisacodyl 10 mg 04/20/21 18:41 Bisacodyl 10 Mg Rect Supp CA QDAY PRN Constipation Dextrose 0 ml 04/27/21 04:03 Dextrose 10% *Hypoglycemia IV PRN PRN Hypoglycemia Protocol Folic Acid 1 mg 04/20/21 18:59 05/23/21 11:13 Folic Acid 1 Mg Tab PO 1 mg QDAY NAMAN Administration Hydralazine HCl 10 mg 04/30/21 05:49 05/01/21 06:02 Hydralazine 20 Mg/1 Ml Inj IV 10 mg Q6HR PRN Administration Hypertension Hydralazine HCl 100 mg 05/01/21 12:00 05/23/21 14:47 Hydralazine 100 Mg Tab PO Not Given TID NAMAN Amiodarone HCl 900 mg/ 500 mls @ 33.333 mls/hr 05/23/21 06:00 05/23/21 11:49 Dextrose IV 0.5 mg/min DIRECT NAMAN 16.667 mls/hr Infusion Protocol 1 MG/MIN Insulin Human Isoph/Insulin Regular 22 unit 05/18/21 08:37 05/23/21 17:28 Insulin Nph/Regular 70/30 Inj SUB-Q 22 unit BIDDIAB NAMAN Administration Insulin Human Lispro 0 unit 04/27/21 04:00 05/23/21 17:30 Insulin Lispro 100 Unit/Ml SUB-Q 6 unit Q6HR NAMAN Administration Protocol Lansoprazole 30 mg 04/28/21 11:00 05/23/21 11:13 Lansoprazole 30 Mg Solutab FEEDTUBE 30 mg QDAY NAMAN Administration Magnesium Hydroxide 30 ml 04/20/21 18:41 Magnesium Hydroxide (Mom) Oral Liqd Udc PO Q4H PRN Constipation Metoclopramide HCl 5 mg 05/15/21 09:00 Metoclopramide 10 Mg Tab PO Q6H PRN Nausea And Vomiting Metoprolol Tartrate 100 mg 04/29/21 12:00 05/23/21 11:14 Metoprolol Tartrate 50 Mg Tab PO 100 mg BID NAMAN Administration Naloxone HCl 0.1 mg 05/23/21 05:21 05/23/21 05:45 Naloxone 0.4 Mg/1 Ml Inj IV 0.1 mg Q2MIN PRN Administration Res Rate </= 8 or 02 SAT < 92% Ondansetron HCl 4 mg 04/20/21 18:41 Ondansetron 4 Mg/2 Ml Inj IV Q8H PRN Nausea And Vomiting Simple Syrup 15 ml 04/25/21 15:16 Simple Syrup 15 Ml FEEDTUBE PRN PRN Hypoglycemia Simple Syrup 30 ml 04/25/21 15:16 Simple Syrup 15 Ml FEEDTUBE PRN PRN Hypoglycemia Sodium Bicarbonate 325 mg 04/25/21 15:16 Sodium Bicarbonate 325 Mg Tab FEEDTUBE PRN PRN For Clogged Feeding Tube Sodium Chloride 10 ml 04/20/21 18:41 05/23/21 11:14 Sodium Chloride 0.9% 10 Ml Flush Syringe IV 10 ml PRN PRN Administration LINE FLUSH Nutrition/Malnutrition Assess - Dietary Evaluation Nutrition/Malnutrition Findings: Nutrition Notes Start: 04/23/21 12:36 Freq: Status: Active Protocol: Document 05/23/21 14:30 [facility] (Rec: 05/23/21 14:38 [facility] [id number]) Nutrition Notes Initial or Follow up Reassessment Current Diagnosis Acute Kidney Injury,Diabetes, Respiratory Failure,Stroke Other Pertinent Diagnosis Metabolic encephalopathy, Dysphagia, COVID-19 Current Diet TF - Glucerna 1.2 at 63ml/hr Labs/Tests Na 149 BUN 68 Cr 2 BG 303 Pertinent Medications Amiodarone gtt Height 6 ft 3 in Weight 79.5 kg [place] Body Weight (kg) 89.09 BMI 21.9 Weight Status Appropriate Subjective/Other Information Pt transferred from 3A this am sec to [facility]. Currently on BiPap support. Per RN, pt tolerating TF at goal rate and receives 200ml water flush q4h. Percent of energy/protein needs met: 90% energy 95% pro Burn Absent Trauma Absent #1 Nutrition Diagnosis Inadequate oral intake Diagnosis Progress(for reassessment Continues documentation) Is patient on ventilator? No Is Patient Ambulatory and/or Out of Bed No REE-([facility]-confined to bed) 74 Calculation Used for Recommendations [facility] Additional Notes Pro needs 1.2-2g/k-159g/ day Fluid needs per MD Nutrition Intervention Nutrition Support: Increase TF goal rate to 70ml/ hr with 200ml water flush q4h. When hypernatremia resolved, provide 110ml water flush q4h . Kcal 2,016 Protein (gm) 101 Carbohydrates (gm) 192 Fat (gm) 101 Fluid (mL) 1,352 Fiber (gm) 27 Goal #1 TF tolerance Goal #2 TF to meet at least 75% energy and pro needs Follow-Up By: 05/30/21 Additional Comments F/U: stable TF, wt, resp status, Na lab/water flushes
[2021-05-24] MEDS: FREE WATER PO SCH ×3 (02:00→21:47)
[2021-05-24 05:38] LABS: Hemoglobin 11.8 gm/dl (11.8-15.2); Mean Corpuscular HGB Conc 33 % (32-34); Mean Corpuscular Volume 87 fl (84-94); Platelet Count 147 K/mm3 (140-440); Red Blood Count 4.15 M/mm3 (3.65-5.03); Red Cell Distribution Width 13.5 % (13.2-15.2)
[2021-05-24] MEDS: INSULIN LISPRO 100 UNIT/ML SUB-Q SCH ×5 (05:40→18:15)
[2021-05-24 05:57] LABS: Calcium 8.7 mg/dL (8.4-10.2)
[2021-05-24] MEDS: hydrALAZINE 100 MG TAB PO SCH ×3 (09:07→21:42)
[2021-05-24] MEDS: METOPROLOL TARTRATE 50 MG TAB PO SCH ×2 (09:07→21:39)
[2021-05-24] MEDS: APIXABAN 5 MG TAB PO SCH ×2 (09:07→21:41)
[2021-05-24] MEDS: LANSOPRAZOLE 30 MG SOLUTAB FEEDTUBE SCH (09:07)
[2021-05-24] MEDS: ASPIRIN EC 81 MG TAB PO SCH (09:07)
[2021-05-24] MEDS: FOLIC ACID 1 MG TAB PO SCH (09:08)
[2021-05-24] MEDS: amLODIPine 10 MG TAB PO SCH (09:08)
[2021-05-24] MEDS: INSULIN NPH/REGULAR 70/30 INJ SUB-Q SCH ×2 (10:16→18:13)
--- NOTE | 2021-05-24 16:24 | Progress Note ---
Assessment and Plan Impression: * Acute kidney injury secondary to prerenal azotemia due to dehydration * Hypernatremia secondary to dehydration * Acute CVA with left hemiparesis * Atrial fibrillation * HFrEF --TTE: EF 45 to 50%. Hypokinesis of basal inferior septal wall. Hypokinesis inferior wall. Right ventricle systolic function is normal. Bubble study did not demonstrate PFO (Apr 20) * DM Plan: * Creatinine now stable 1.7->3.6->2.6->2.0->1.7 * Sodium stable now at 149 * Continue free H2O with TF, IVF prn * Glycemic control per primary team * Rate control/anticoagulation per cardiology * Dose medications for renal function * Avoid potential nephrotoxins * Daily BMP * No indications for renal replacement therapy, no DNR/DNI Subjective Date of service: 05/24/21 Principal diagnosis: Acute CVA Interval history: Returned to floor, remains on amio, otherwise no clinical changes Objective - Exam Narrative Exam: General appearance: frail, ill appearing EENT: ATNC Respiratory: Present: Clear to Ascultation Cardiology: regular, S1S2 Gastrointestinal: normal, no tenderness, no distended Neurologic: other (unresponsive) Skin: intact - Vital Signs Vital signs: Vital Signs - 12hr 05/24/21 05/24/21 05/24/21 04:40 07:57 10:00 Temperature 98.9 F 98.1 F Pulse Rate 71 77 Pulse Rate [ 74 From Monitor] Respiratory 22 30 H 28 H Rate Blood Pressure 162/98 Blood Pressure 124/91 [Left] O2 Sat by Pulse 92 93 93 Oximetry - Lab 05/24/21 05:28 05/24/21 05:28 Most recent lab results ABG pH 7.487 (7.320-7.450) H 05/23/21 04:40 ABG O2 Saturation 97.5 (0-100) 05/23/21 04:40 Calcium 8.7 mg/dL (8.4-10.2) 05/24/21 05:28 Magnesium 3.30 mg/dL (1.7-2.3) H 05/22/21 04:19 Medications & Allergies - Medications Allergies/Adverse Reactions: Allergies No Known Allergies Allergy (Verified 08/24/20 14:13) Home Medications: Home Medications Medication Instructions Recorded Confirmed Last Taken Type No Known Home Medications [No 04/30/21 04/30/21 Unknown History Reported Home Medications] Active Medications: Generic Name Dose Route Start Last Admin Trade Name Freq PRN Reason Stop Dose Admin Acetaminophen 650 mg 05/20/21 20:45 05/20/21 23:11 Acetaminophen 325 Mg/10.15 Ml Oral Liqd Unit Dose PO 650 mg Q6H PRN Administration Fever >101 Albuterol 2.5 mg 04/20/21 18:41 Albuterol 2.5 Mg/3 Ml Nebu IH Q3HRT PRN Shortness Of Breath Amlodipine Besylate 10 mg 05/01/21 10:00 05/24/21 09:08 Amlodipine 10 Mg Tab PO 10 mg QDAY NAMAN Administration Lipase/Protease/Amylase 1 each 04/25/21 15:16 Lipase 10,500/Protease 25,000/Amylase 43,750 (Units) Dr Willingham FEEDTUBE PRN PRN For Clogged Feeding Tube Apixaban 5 mg 04/29/21 10:00 05/24/21 09:07 Apixaban 5 Mg Tab PO 5 mg Q12HR NAMAN Administration Protocol Aspirin 81 mg 05/25/21 10:00 Aspirin 81 Mg Tab Chew FEEDTUBE QDAY NAMAN Atorvastatin Calcium 40 mg 04/20/21 22:00 05/23/21 22:03 Atorvastatin 40 Mg Tab PO 40 mg QHS NAMAN Administration Bisacodyl 10 mg 04/20/21 18:41 Bisacodyl 10 Mg Rect Supp SC QDAY PRN Constipation Dextrose 0 ml 04/27/21 04:03 Dextrose 10% *Hypoglycemia IV PRN PRN Hypoglycemia Protocol Folic Acid 1 mg 04/20/21 18:59 05/24/21 09:08 Folic Acid 1 Mg Tab PO 1 mg QDAY NAMAN Administration Glycopyrrolate 1 mg 05/24/21 16:00 Glycopyrrolate 1 Mg Tab FEEDTUBE Q8H NAMAN Hydralazine HCl 10 mg 04/30/21 05:49 05/01/21 06:02 Hydralazine 20 Mg/1 Ml Inj IV 10 mg Q6HR PRN Administration Hypertension Hydralazine HCl 100 mg 05/01/21 12:00 05/24/21 09:07 Hydralazine 100 Mg Tab PO 100 mg TID NAMAN Administration Amiodarone HCl 900 mg/ 500 mls @ 33.333 mls/hr 05/23/21 06:00 05/23/21 22:41 Dextrose IV 0.5 mg/min DIRECT NAMAN 16.667 mls/hr Administration Protocol 1 MG/MIN Insulin Human Isoph/Insulin Regular 22 unit 05/18/21 08:37 05/24/21 10:16 Insulin Nph/Regular 70/30 Inj SUB-Q 22 unit BIDDIAB NAMAN Administration Insulin Human Lispro 0 unit 04/27/21 04:00 05/24/21 12:33 Insulin Lispro 100 Unit/Ml SUB-Q 8 unit Q6HR NAMAN Administration Protocol Lansoprazole 30 mg 04/28/21 11:00 05/24/21 09:07 Lansoprazole 30 Mg Solutab FEEDTUBE 30 mg QDAY [facility] Administration Magnesium Hydroxide 30 ml 04/20/21 18:41 Magnesium Hydroxide (Mom) Oral Liqd Udc PO Q4H PRN Constipation Metoclopramide HCl 5 mg 05/15/21 09:00 Metoclopramide 10 Mg Tab PO Q6H PRN Nausea And Vomiting Metoprolol Tartrate 100 mg 04/29/21 12:00 05/24/21 09:07 Metoprolol Tartrate 50 Mg Tab PO 100 mg BID NAMAN Administration Naloxone HCl 0.1 mg 05/23/21 05:21 05/23/21 05:45 Naloxone 0.4 Mg/1 Ml Inj IV 0.1 mg Q2MIN PRN Administration Res Rate </= 8 or 02 SAT < 92% Ondansetron HCl 4 mg 04/20/21 18:41 Ondansetron 4 Mg/2 Ml Inj IV Q8H PRN Nausea And Vomiting Simple Syrup 15 ml 04/25/21 15:16 Simple Syrup 15 Ml FEEDTUBE PRN PRN Hypoglycemia Simple Syrup 30 ml 04/25/21 15:16 Simple Syrup 15 Ml FEEDTUBE PRN PRN Hypoglycemia Sodium Bicarbonate 325 mg 04/25/21 15:16 Sodium Bicarbonate 325 Mg Tab FEEDTUBE PRN PRN For Clogged Feeding Tube Sodium Chloride 10 ml 04/20/21 18:41 05/23/21 11:14 Sodium Chloride 0.9% 10 Ml Flush Syringe IV 10 ml PRN PRN Administration LINE FLUSH
--- NOTE | 2021-05-24 17:22 | Progress Note ---
Assessment and Plan Assessment and plan: 61-year-old male w/ hx of CVH with LHP, nicotine dependence, EtOH dependence who presented with worsening left-sided weakness and difficulty speaking for 2 days. Code stroke was initiated. Patient was also discovered to have new onset A. fib with RVR. Currently stable, requiring feeding tube awaiting safe discharge. Patient is uninsured and will require total care at this time. Exploring hospice, NOK will need to agree to stopping use of PEG tube. #Acute hypoxic respiratory failure Concern for viral pneumonia (possible Covid infection) Currently on 4 L nasal cannula (wean down from Ventimask) CT chest, abdomen, pelvis without contrast (05/21/2021) revealing bilateral pulmonary infiltrates Ordering airborne and droplet precaution Ordering influenza a/B PCR and coronavirus PCR #Acute/subacute CVA #Acute metabolic encephalopathy-Multifactorial -CT with extensive microvascular changes; MRI brain showed subacute multi- infarct cerebellar and brain stem / luba -US carotid <50% stenosis -stroke likely embolic from A fib; continue eliquis and metoprolol, amiodarone for rate control -TTE showed diastolic dysfunction; normal EF and no evidence of PFO Continue aspirin and lipitor Physical therapy/Occupational Therapy recommended subacute rehab, however the patient is uninsured #Dysphagia #Dysarthria -PEG tube placed on 04/28/2021 -tube feeds at 63cc/hr, will continue. Nutrition consulted; appreciate recs -meds per PEG tube #BHASKAR secondary to vasomotor nephropathyworsened Creatinine increased from 1.7-3.5 -continue free water flushes via PEG tube -Renal ultrasound suggestive of medical renal disease -avoid nephrotoxins and renally dose medications -Nephrology consulted, assistance appreciated #Hypernatremia -Sodium 151-->147-->153 -Restarting free water flushes and LR 100 cc/hour. Fluids were stopped during episodes of severe respiratory decline. -Nephrology consulted; appreciate recs -Continue to monitor with daily BMP #COVID-19 positiveresolved -PCR 04/27/2021 -supportive care #Type 2 diabetes mellitus -Hyperglycemia secondary to IV fluid use to treat hypernatremia -continue accuchecks and sliding scale -humulin increased to 22 units qday -continue ADA diet -goal glucose 140-180, will adjust insulin as needed #Atrial fibrillation with RVR, (new onset) -rate currently controlled -continue amiodarone 200 mg daily, metoprolol tartrate 100 mg twice daily, and eliquis 5 mg every 12 hours #Moderate protein calorie malnutrition -albumin 3.2 -nutrition consult, continue TF #Advanced care planning #Discharge planning -Legal next of kin Daughter Soniya Mabry ([phone]) still has not made a decision regarding PEG tube. Discussed with CM about contacting Adult Protective Services and starting the process for Guardianship for the patient. Family has contacted [facility] to evaluate the patient for inpatient hospice. Hospitalist Physical - Constitutional Vitals: Temp Pulse Resp BP Pulse Ox 99.6 F 47 L 36 H 117/68 93 05/24/21 15:34 05/24/21 15:34 05/24/21 15:34 05/24/21 15:34 05/24/21 16:00 General appearance: Present: no acute distress, well-nourished, other (Dysarthr ia, confused) HEART Score - HEART Score Troponin: Troponin T 0.011 ng/mL (0.00-0.029) 04/20/21 17:44 Results - Labs CBC & Chem 7: 05/24/21 05:28 05/24/21 05:28 Labs: Laboratory Last Values WBC 11.9 K/mm3 (4.5-11.0) H 05/24/21 05:28 RBC 4.15 M/mm3 (3.65-5.03) 05/24/21 05:28 Hgb 11.8 gm/dl (11.8-15.2) 05/24/21 05:28 Hct 36.0 % (35.5-45.6) 05/24/21 05:28 MCV 87 fl (84-94) 05/24/21 05:28 MCH 28 pg (28-32) 05/24/21 05:28 MCHC 33 % (32-34) 05/24/21 05:28 RDW 13.5 % (13.2-15.2) 05/24/21 05:28 Plt Count 147 K/mm3 (140-440) 05/24/21 05:28 Lymph % (Auto) 16.8 % (13.4-35.0) 05/23/21 05:02 [place] % (Auto) 8.8 % (0.0-7.3) H 05/23/21 05:02 Eos % (Auto) 0.5 % (0.0-4.3) 05/23/21 05:02 Baso % (Auto) 0.2 % (0.0-1.8) 05/23/21 05:02 Lymph # (Auto) 1.2 K/mm3 (1.2-5.4) 05/23/21 05:02 [place] # (Auto) 0.6 K/mm3 (0.0-0.8) 05/23/21 05:02 Eos # (Auto) 0.0 K/mm3 (0.0-0.4) 05/23/21 05:02 Baso # (Auto) 0.0 K/mm3 (0.0-0.1) 05/23/21 05:02 Add Manual Diff Complete 05/22/21 04:19 Total Counted 100 05/22/21 04:19 Seg Neutrophils % 73.7 % (40.0-70.0) H 05/23/21 05:02 Seg Neuts % (Manual) 85.0 % (40.0-70.0) H 05/22/21 04:19 Band Neutrophils % 0 % 05/22/21 04:19 Lymphocytes % (Manual) 14.0 % (13.4-35.0) 05/22/21 04:19 Reactive Lymphs % (Man) 0 % 05/22/21 04:19 Monocytes % (Manual) 1.0 % (0.0-7.3) 05/22/21 04:19 Eosinophils % (Manual) 0 % (0.0-4.3) 05/22/21 04:19 Basophils % (Manual) 0 % (0.0-1.8) 05/22/21 04:19 Metamyelocytes % 0 % 05/22/21 04:19 Myelocytes % 0 % 05/22/21 04:19 Promyelocytes % 0 % 05/22/21 04:19 Blast Cells % 0 % 05/22/21 04:19 Nucleated RBC % Not Reportable 05/22/21 04:19 Seg Neutrophils # 5.4 K/mm3 (1.8-7.7) 05/23/21 05:02 Seg Neutrophils # Man 8.8 K/mm3 (1.8-7.7) H 05/22/21 04:19 Band Neutrophils # 0.0 K/mm3 05/22/21 04:19 Lymphocytes # (Manual) 1.4 K/mm3 (1.2-5.4) 05/22/21 04:19 Abs React Lymphs (Man) 0.0 K/mm3 05/22/21 04:19 Monocytes # (Manual) 0.1 K/mm3 (0.0-0.8) 05/22/21 04:19 Eosinophils # (Manual) 0.0 K/mm3 (0.0-0.4) 05/22/21 04:19 Basophils # (Manual) 0.0 K/mm3 (0.0-0.1) 05/22/21 04:19 Metamyelocytes # 0.0 K/mm3 05/22/21 04:19 Myelocytes # 0.0 K/mm3 05/22/21 04:19 Promyelocytes # 0.0 K/mm3 05/22/21 04:19 Blast Cells # 0.0 K/mm3 05/22/21 04:19 WBC Morphology Not Reportable 05/22/21 04:19 Hypersegmented Neuts Not Reportable 05/22/21 04:19 Hyposegmented Neuts Not Reportable 05/22/21 04:19 Hypogranular Neuts Not Reportable 05/22/21 04:19 Smudge Cells Not Reportable 05/22/21 04:19 Toxic Granulation Not Reportable 05/22/21 04:19 Toxic Vacuolation Not Reportable 05/22/21 04:19 Dohle Bodies Not Reportable 05/22/21 04:19 Pelger-Huet Anomaly Not Reportable 05/22/21 04:19 Delfin Rods Not Reportable 05/22/21 04:19 Platelet Estimate Consistent w auto 05/22/21 04:19 Clumped Platelets Not Reportable 05/22/21 04:19 Plt Clumps, EDTA Not Reportable 05/22/21 04:19 Large Platelets Not Reportable 05/22/21 04:19 Giant Platelets Not Reportable 05/22/21 04:19 Platelet Satelliting Not Reportable 05/22/21 04:19 Plt Morphology Comment Not Reportable 05/22/21 04:19 RBC Morphology Normal 05/22/21 04:19 Dimorphic RBCs Not Reportable 05/22/21 04:19 Polychromasia Not Reportable 05/22/21 04:19 Hypochromasia Not Reportable 05/22/21 04:19 Poikilocytosis Not Reportable 05/22/21 04:19 Anisocytosis Not Reportable 05/22/21 04:19 Microcytosis Not Reportable 05/22/21 04:19 Macrocytosis Not Reportable 05/22/21 04:19 Spherocytes Not Reportable 05/22/21 04:19 Pappenheimer Bodies Not Reportable 05/22/21 04:19 Sickle Cells Not Reportable 05/22/21 04:19 Target Cells Not Reportable 05/22/21 04:19 Tear Drop Cells Not Reportable 05/22/21 04:19 Ovalocytes Not Reportable 05/22/21 04:19 Helmet Cells Not Reportable 05/22/21 04:19 Hoang-Paisley Bodies Not Reportable 05/22/21 04:19 [place] Rings Not Reportable 05/22/21 04:19 Frank Cells Not Reportable 05/22/21 04:19 Bite Cells Not Reportable 05/22/21 04:19 Crenated Cell Not Reportable 05/22/21 04:19 Elliptocytes Not Reportable 05/22/21 04:19 Acanthocytes (Spur) Not Reportable 05/22/21 04:19 Rouleaux Not Reportable 05/22/21 04:19 Hemoglobin C Crystals Not Reportable 05/22/21 04:19 Schistocytes Not Reportable 05/22/21 04:19 Malaria parasites Not Reportable 05/22/21 04:19 Giovanni Bodies Not Reportable 05/22/21 04:19 Hem Pathologist Commnt No 05/22/21 04:19 PT 14.1 Sec. (12.2-14.9) 04/28/21 13:53 INR 0.98 (0.87-1.13) 04/28/21 13:53 APTT 31.8 Sec. (24.2-36.6) 04/28/21 13:53 Thrombin Time 16.2 Sec. (15.1-19.6) 04/20/21 17:44 D-Dimer 1707.24 ng/mlDDU (0-234) H 05/21/21 17:47 ABG pH 7.487 (7.320-7.450) H 05/23/21 04:40 POC ABG pCO2 32.9 mmHg (32.0-48.0) 05/23/21 04:40 POC ABG pO2 92.7 mmHg (83-108) 05/23/21 04:40 POC ABG HCO3 24.3 05/23/21 04:40 ABG O2 Saturation 97.5 (0-100) 05/23/21 04:40 POC ABG Base Excess 1.5 05/23/21 04:40 ABG Hemoglobin 12.8 (12.0-17.5) 05/23/21 04:40 ABG Oxyhemoglobin 97.1 (94-98) 05/23/21 04:40 ABG Methemoglobin 0.3 (0.0-1.5) 05/23/21 04:40 Carboxyhemoglobin 0.1 (0.5-1.5) L 05/23/21 04:40 FiO2 % 30 05/23/21 04:40 Sodium 149 mmol/L (137-145) H 05/24/21 05:28 Potassium 4.5 mmol/L (3.6-5.0) 05/24/21 05:28 Chloride 115.0 mmol/L (98-107) H 05/24/21 05:28 Carbon Dioxide 20 mmol/L (22-30) L 05/24/21 05:28 Anion Gap 19 mmol/L 05/24/21 05:28 BUN 52 mg/dL (9-20) H 05/24/21 05:28 Creatinine 1.7 mg/dL (0.8-1.3) H 05/24/21 05:28 Estimated GFR 50 ml/min 05/24/21 05:28 BUN/Creatinine Ratio 31 % 05/24/21 05:28 Glucose 400 mg/dL (75-100) H 05/24/21 05:28 POC Glucose 313 mg/dL (70-105) H 05/24/21 17:03 Calcium 8.7 mg/dL (8.4-10.2) 05/24/21 05:28 Magnesium 3.30 mg/dL (1.7-2.3) H 05/22/21 04:19 Ferritin 1180.0 ng/mL (30.0-300.0) H 05/21/21 17:47 Total Bilirubin 0.20 mg/dL (0.1-1.2) 05/06/21 05:32 AST 25 units/L (5-40) 05/06/21 05:32 ALT 64 units/L (7-56) H 05/06/21 05:32 Alkaline Phosphatase 168 units/L (35-129) H 05/06/21 05:32 Lactate Dehydrogenase 287 units/L (91-180) H 04/28/21 09:29 Total Creatine Kinase 79 units/L (55-170) 04/20/21 17:44 Total Creatine Kinase 81 units/L (55-170) 04/20/21 17:44 CK-MB (CK-2) 2.1 ng/mL (0.0-4.0) 04/20/21 17:44 CK-MB (CK-2) Rel Index 2.6 (0-4) 04/20/21 17:44 Troponin T 0.011 ng/mL (0.00-0.029) 04/20/21 17:44 C-Reactive Protein 35.60 mg/dL (0.00-1.30) H 05/21/21 17:47 Total Protein 7.4 g/dL (6.3-8.2) 05/06/21 05:32 Albumin 3.2 g/dL (3.9-5) L 05/06/21 05:32 Albumin/Globulin Ratio 0.8 % 05/06/21 05:32 TSH 1.040 mlU/mL (0.270-4.200) 04/20/21 19:42 Free T4 1.16 ng/dL (0.76-1.46) 04/20/21 19:42 Urine Color Saira (Yellow) 04/26/21 Unknown Urine Turbidity Cloudy (Clear) 04/26/21 Unknown Urine pH 5.0 (5.0-7.0) 04/26/21 Unknown Ur Specific [place] 1.020 (1.003-1.030) 04/26/21 Unknown Urine Protein 100 mg/dl mg/dL (Negative) 04/26/21 Unknown Urine Glucose (UA) >=500 mg/dL (Negative) 04/26/21 Unknown Urine Ketones Neg mg/dL (Negative) 04/26/21 Unknown Urine Blood Mod (Negative) 04/26/21 Unknown Urine Nitrite Neg (Negative) 04/26/21 Unknown Urine Bilirubin Neg (Negative) 04/26/21 Unknown Urine Urobilinogen 2.0 mg/dL (<2.0) 04/26/21 Unknown Ur Leukocyte Esterase Neg (Negative) 04/26/21 Unknown Urine WBC (Auto) 1.0 /HPF (0.0-6.0) 04/20/21 18:19 Urine RBC (Auto) 3.0 /HPF (0.0-6.0) 04/20/21 18:19 U Epithel Cells (Auto) < 1.0 /HPF (0-13.0) 04/20/21 18:19 Hyaline Casts 5 /LPF 04/20/21 18:19 Urine Mucus Few /HPF 04/20/21 18:19 Random Vancomycin 9.7 ug/mL (0-40.0) 05/23/21 05:02 Plasma/Serum Alcohol < 0.01 % (0-0.07) 04/20/21 17:44 Coronavirus (PCR) Negative (Negative) 05/22/21 Unknown Microbiology: Microbiology 05/20/21 08:28 Peripheral/Venous Blood Culture - Preliminary NO GROWTH AFTER 4 DAYS 05/20/21 08:28 Peripheral/Venous Blood Culture - Preliminary NO GROWTH AFTER 4 DAYS Bravo/IV: Voiding Method Condom Catheter Active Medications - Current Medications Current Medications: Generic Name Dose Route Start Last Admin Trade Name Freq PRN Reason Stop Dose Admin Acetaminophen 650 mg 05/20/21 20:45 05/20/21 23:11 Acetaminophen 325 Mg/10.15 Ml Oral Liqd Unit Dose PO 650 mg Q6H PRN Administration Fever >101 Albuterol 2.5 mg 04/20/21 18:41 Albuterol 2.5 Mg/3 Ml Nebu IH Q3HRT PRN Shortness Of Breath Amlodipine Besylate 10 mg 05/01/21 10:00 05/24/21 09:08 Amlodipine 10 Mg Tab PO 10 mg QDAY NAMAN Administration Lipase/Protease/Amylase 1 each 04/25/21 15:16 Lipase 10,500/Protease 25,000/Amylase 43,750 (Units) Dr Willingham FEEDTUBE PRN PRN For Clogged Feeding Tube Apixaban 5 mg 04/29/21 10:00 05/24/21 09:07 Apixaban 5 Mg Tab PO 5 mg Q12HR NAMAN Administration Protocol Aspirin 81 mg 05/25/21 10:00 Aspirin 81 Mg Tab Chew FEEDTUBE QDAY NAMAN Atorvastatin Calcium 40 mg 04/20/21 22:00 05/23/21 22:03 Atorvastatin 40 Mg Tab PO 40 mg QHS NAMAN Administration Bisacodyl 10 mg 04/20/21 18:41 Bisacodyl 10 Mg Rect Supp [place] QDAY PRN Constipation Dextrose 0 ml 04/27/21 04:03 Dextrose 10% *Hypoglycemia IV PRN PRN Hypoglycemia Protocol Folic Acid 1 mg 04/20/21 18:59 05/24/21 09:08 Folic Acid 1 Mg Tab PO 1 mg QDAY NAMAN Administration Glycopyrrolate 1 mg 05/24/21 16:00 Glycopyrrolate 1 Mg Tab FEEDTUBE Q8H NAMAN Hydralazine HCl 10 mg 04/30/21 05:49 05/01/21 06:02 Hydralazine 20 Mg/1 Ml Inj IV 10 mg Q6HR PRN Administration Hypertension Hydralazine HCl 100 mg 05/01/21 12:00 05/24/21 09:07 Hydralazine 100 Mg Tab PO 100 mg TID NAMAN Administration Amiodarone HCl 900 mg/ 500 mls @ 33.333 mls/hr 05/23/21 06:00 05/23/21 22:41 Dextrose IV 0.5 mg/min DIRECT NAMAN 16.667 mls/hr Administration Protocol 1 MG/MIN Insulin Human Isoph/Insulin Regular 22 unit 05/18/21 08:37 05/24/21 10:16 Insulin Nph/Regular 70/30 Inj SUB-Q 22 unit BIDDIAB NAMAN Administration Insulin Human Lispro 0 unit 04/27/21 04:00 05/24/21 12:33 Insulin Lispro 100 Unit/Ml SUB-Q 8 unit Q6HR NAMAN Administration Protocol Lansoprazole 30 mg 04/28/21 11:00 05/24/21 09:07 Lansoprazole 30 Mg Solutab FEEDTUBE 30 mg QDAY NAMAN Administration Magnesium Hydroxide 30 ml 04/20/21 18:41 Magnesium Hydroxide (Mom) Oral Liqd Udc PO Q4H PRN Constipation Metoclopramide HCl 5 mg 05/15/21 09:00 Metoclopramide 10 Mg Tab PO Q6H PRN Nausea And Vomiting Metoprolol Tartrate 100 mg 04/29/21 12:00 05/24/21 09:07 Metoprolol Tartrate 50 Mg Tab PO 100 mg BID NAMAN Administration Naloxone HCl 0.1 mg 05/23/21 05:21 05/23/21 05:45 Naloxone 0.4 Mg/1 Ml Inj IV 0.1 mg Q2MIN PRN Administration Res Rate </= 8 or 02 SAT < 92% Ondansetron HCl 4 mg 04/20/21 18:41 Ondansetron 4 Mg/2 Ml Inj IV Q8H PRN Nausea And Vomiting Simple Syrup 15 ml 04/25/21 15:16 Simple Syrup 15 Ml FEEDTUBE PRN PRN Hypoglycemia Simple Syrup 30 ml 04/25/21 15:16 Simple Syrup 15 Ml FEEDTUBE PRN PRN Hypoglycemia Sodium Bicarbonate 325 mg 04/25/21 15:16 Sodium Bicarbonate 325 Mg Tab FEEDTUBE PRN PRN For Clogged Feeding Tube Sodium Chloride 10 ml 04/20/21 18:41 05/23/21 11:14 Sodium Chloride 0.9% 10 Ml Flush Syringe IV 10 ml PRN PRN Administration LINE FLUSH Nutrition/Malnutrition Assess - Dietary Evaluation Nutrition/Malnutrition Findings: Nutrition Notes Start: 04/23/21 12:36 Freq: Status: Active Protocol: Document 05/23/21 14:30 ERNESTO (Rec: 05/23/21 14:38 ERNESTO [id number]) Nutrition Notes Initial or Follow up Reassessment Current Diagnosis Acute Kidney Injury,Diabetes, Respiratory Failure,Stroke Other Pertinent Diagnosis Metabolic encephalopathy, Dysphagia, COVID-19 Current Diet TF - Glucerna 1.2 at 63ml/hr Labs/Tests Na 149 BUN 68 Cr 2 BG 303 Pertinent Medications Amiodarone gtt Height 6 ft 3 in Weight 79.5 kg [place] Body Weight (kg) 89.09 BMI 21.9 Weight Status Appropriate Subjective/Other Information Pt transferred from 3A this am sec to resp distress. Currently on BiPap support. Per RN, pt tolerating TF at goal rate and receives 200ml water flush q4h. Percent of energy/protein needs met: 90% energy 95% pro Burn Absent Trauma Absent #1 Nutrition Diagnosis Inadequate oral intake Diagnosis Progress(for reassessment Continues documentation) Is patient on ventilator? No Is Patient Ambulatory and/or Out of Bed No REE-([facility]-confined to bed) 2020.748 Calculation Used for Recommendations Lupe Maxwell Additional Notes Pro needs 1.2-2g/k-159g/ day Fluid needs per MD Nutrition Intervention Nutrition Support: Increase TF goal rate to 70ml/ hr with 200ml water flush q4h. When hypernatremia resolved, provide 110ml water flush q4h . Kcal 2,016 Protein (gm) 101 Carbohydrates (gm) 192 Fat (gm) 101 Fluid (mL) 1,352 Fiber (gm) 27 Goal #1 TF tolerance Goal #2 TF to meet at least 75% energy and pro needs Follow-Up By: 05/30/21 Additional Comments F/U: stable TF, wt, resp status, Na lab/water flushes
[2021-05-24] MEDS: GLYCOPYRROLATE 1 MG TAB FEEDTUBE SCH (18:13)
[2021-05-24] MEDS: ACETAMINOPHEN 325 MG/10.15 ML ORAL LIQD UNIT DOSE PO PRN (21:51)
[2021-05-25] MEDS: INSULIN LISPRO 100 UNIT/ML SUB-Q SCH (00:39)
[2021-05-25] MEDS: GLYCOPYRROLATE 1 MG TAB FEEDTUBE SCH (00:52)
[2021-05-25 04:33] VITALS: BP 169/80
--- NOTE | 2021-05-25 04:53 | Death Note ---
Note Date of : 05/25/21 Time of : 04:17 Time Pronounced: 04:17 - Preliminary Cause of (problem) (1) CVA (cerebral vascular accident) Preliminary cause of Called by the nurse that the patient is not breathing. I examined the patient. Patient is pulseless and breathless. Patient has no BP. Patient at 4 1 7 AM on 05/25/2021 due to cardiopulmonary arrest, CVA. Prognosis was poor. Patient was DNR. Family is notified
--- NOTE | 2021-05-25 09:35 | Death Summary ---
Summary - Providers Consults: 04/20/21 18:41 Occupational Therapy Evaluate and Treat [CONS] Routine Comment: Reason For Exam: Neuro deficits Physical Therapy Evaluation and Treat [CONS] Routine Comment: Reason For Exam: Neuro deficits 04/20/21 19:00 Consult to Cardiology [CONS] Routine Consulting Provider: SHERIDAN KEARNEY Reason For Exam: new onset A fib 04/22/21 20:18 Speech Therapy Evaluation and Treat [CONS] Routine Reason For Exam: possible stroke 04/23/21 11:25 Consult to Dietitian/Nutrition [CONS] Routine Physician Instructions: Reason For Exam: Reason for Consult: Write/Manage Tube Feeding 04/23/21 11:26 Consult to Dietitian/Nutrition [CONS] Routine Physician Instructions: Assess nutrtn needs, initiate, modify, manage TF Reason For Exam: Reason for Consult: Write/Manage Tube Feeding Reason for Consult: Write/Manage Tube Feeding 04/24/21 13:15 Consult to Physician [CONS] Routine Comment: Consulting Provider: ONEIDA CHENG Physician Instructions: Reason For Exam: PEG tube placement 04/25/21 15:16 Consult to Dietitian/Nutrition [CONS] Routine Physician Instructions: Assess nutrtn needs, initiate, modify, manage TF Reason For Exam: Reason for Consult: Write/Manage Tube Feeding Reason for Consult: Write/Manage Tube Feeding 04/27/21 03:52 Consult to Dietitian/Nutrition [CONS] Routine Physician Instructions: Reason For Exam: Reason for Consult: Write/Manage Tube Feeding 04/27/21 03:57 Consult to Dietitian/Nutrition [CONS] Routine Physician Instructions: Reason For Exam: Reason for Consult: Write/Manage Tube Feeding 05/01/21 14:46 Consult to Physician [CONS] Routine Comment: Consulting Provider: KHANG LINDSEY Physician Instructions: Reason For Exam: acute CVA 05/15/21 08:40 Consult to Physician [CONS] Routine Comment: Consulting Provider: ROXIE GARG Physician Instructions: Reason For Exam: BHASKAR, hypernatremia 05/19/21 07:01 Consult to Wound/ET Nurse [CONS] Routine Reason For Exam: wound eval 05/20/21 14:05 Consult to Physician [CONS] Routine Comment: Consulting Provider: LASHAY PARIKH Physician Instructions: Reason For Exam: Stage II sacral decub ulcer eval per Wound Care Attending: QUINTIN LÓPEZ MD - summary Date of admission: 04/21/21 13:35 Date of : 05/25/21
[2021-05-25] MEDS ORDERED: ASPIRIN 81 MG TAB CHEW FEEDTUBE SCH (10:00)
== END 2021-05-25 08:04 | DRG 64 ==
LOC: ED 16:20 → 4A 18:41 → OBSVTOIN 04-21 13:35 → 4A 04-21 21:37 → 3A 04-27 16:41 → CC1 05-23 04:22 → 4A 05-23 18:47
PROVIDERS: ADMIT Internal Medicine; ATTEND Internal Medicine
PROC: 0DH63UZ Insertion of Feeding Device into Stomach, Percutaneous Approach (ICD-10-PCS; 2021-04-28)
PROC: 5A09357 Assistance with Respiratory Ventilation, Less than 24 Consecutive Hours, Continuous Positive Airway Pressure (ICD-10-PCS; principal; 2021-05-23)
DX: I63.9 Cerebral infarction, unspecified (principal); U07.1 COVID-19; G93.41 Metabolic encephalopathy; N17.0 Acute kidney failure with tubular necrosis; I48.19 Other persistent atrial fibrillation; E44.0 Moderate protein-calorie malnutrition; F17.213 Nicotine dependence, cigarettes, with withdrawal; I47.1 Supraventricular tachycardia; I50.20 Unspecified systolic (congestive) heart failure; G81.94 Hemiplegia, unspecified affecting left nondominant side; I46.9 Cardiac arrest, cause unspecified; Z66 Do not resuscitate; E87.0 Hyperosmolality and hypernatremia; F10.20 Alcohol dependence, uncomplicated; I48.91 Unspecified atrial fibrillation; Z68.21 Body mass index [BMI] 21.0-21.9, adult; R13.10 Dysphagia, unspecified; E11.9 Type 2 diabetes mellitus without complications; E86.0 Dehydration; Z82.49 Family history of ischemic heart disease and other diseases of the circulatory system; Z79.01 Long term (current) use of anticoagulants
CPT/HCPCS: 36415; 70450; 70551; 71045; 71250; 74018; 74176; 76770; 80048; 80053; 80202; 80320; 81001; 81003; 82550; 82553; 82565; 82728; 82805; 82962; 83615; 83735; 84439; 84443; 84484; 85007; 85025; 85027; 85379; 85610; 85670; 85730; 86140; 87040; 93005; 93010; 93306; 93880; 94660; 94760; A9577; G0378; J3490; J7060; J7120; Q0162; Q0177; Q9967; C8929; G0480; J0282; J0360; J0690; J0692; J0696; J1170; J1630; J1644; J1815; J2060; J2310; J2704; J2920; J3370; J7030; J7040; J7050; J7070; U0003